=== PATIENT | male | born 1945 | race Caucasian/White ===

== ENCOUNTER → 2016-10-08 | Outpatient (CLI) | payer MEDICARE, OTHER ==
[~2016-10-08] VITALS: Ht 167.6 cm; Wt 81.2 kg
[~2016-10-08] MED LIST: ADV100INH INH; ALBU83IN INH; AMIT25TA PO; AMLO25TA PO; ASCO25TA PO; ATEN100T PO; BUSP15TA47 PO; CITA20TA4 PO; COMBAER6 INH; ECOT81TA5 PO; FENO1POW PO; FERR325T3 PO; FOLI5INJ2 PO; HYDR1LIQ PO; LASI20TA PO; LIDOCAINE 2% INJ 100 MG/5 ML SDV (FOR ANES.) As Ordered ONE; LISI10TA4 PO; METF500T PO; MULT1TAB18 PO; NS 1,000 ML IV SCH; OMEP40CA2 PO; PRED5CON PO; PROP50TA3 PO; PROPOFOL 200 MG/20 ML VIAL As Ordered ONE; ROPI2TAB PO; SIMV40TA2 PO; TIMO5OPD OU; TRAM50TA2 PO; TYLE500T78 PO; XALA0.002 OU; [UNRECOGNIZED DRUG - CODE] PO
--- NOTE | 2016-10-08 08:31 | ROOR ---
Patient Name: Juan Higgins Procedure Date: 10/08/2016 8:05 AM Date of : 1945 Age: 71 Room: [facility] Gender: Male Note Status: Finalized Procedure: Colonoscopy to Cecum Indications: Screening for colorectal malignant neoplasm Providers: Truong Robb MD Referring MD: TONYA SNOW MD Requesting Provider: Medicines: Monitored Anesthesia Care Complications: No immediate complications. Procedure: Pre-Anesthesia Assessment: - The heart rate, respiratory rate, oxygen saturations, blood pressure, adequacy of pulmonary ventilation, and response to care were monitored throughout the procedure. The Colonoscope was introduced through the anus and advanced to the cecum, identified by appendiceal orifice and ileocecal valve. The colonoscopy was performed without difficulty. The patient tolerated the procedure well. The quality of the bowel preparation was excellent. Findings: The perianal and digital rectal examinations were normal. Non-bleeding internal hemorrhoids were found during retroflexion. The hemorrhoids were small and Grade I (internal hemorrhoids that do not prolapse). Scattered small-mouthed diverticula were found in the recto-sigmoid colon, sigmoid colon and descending colon. The exam was otherwise without abnormality on direct and retroflexion views. Impression: - Non-bleeding internal hemorrhoids. - Diverticulosis in the recto-sigmoid colon, in the sigmoid colon and in the descending colon. - The examination was otherwise normal on direct and retroflexion views. - No specimens collected. - The exam was otherwise normal to the cecum. Recommendation: - Patient has a contact number available for emergencies. The signs and symptoms of potential delayed complications were discussed with the patient. Return to normal activities tomorrow. Written discharge instructions were provided to the patient. - High fiber diet. - Discharge patient to home. - Continue present medications. - Repeat colonoscopy is not recommended for screening purposes. - Return to referring physician. - The findings and recommendations were discussed with the patient's family. Truong Robb MD Truong Robb MD 10/08/2016 8:30:43 AM This report has been signed electronically. Number of Addenda: 0 Note Initiated On: 10/08/2016 8:05 AM Estimated Blood Loss: Estimated blood loss: none.
[2016-10-08 09:00] VITALS: BP 154/65
== END | disposition home or self-care (01) ==
LOC: M OPP 07:13
PROVIDERS: ATTEND Internal Medicine Gastroenterology
DX: Z12.11 Encounter for screening for malignant neoplasm of colon (principal); K64.0 First degree hemorrhoids; K57.30 Diverticulosis of large intestine without perforation or abscess without bleeding; I10 Essential (primary) hypertension; E78.5 Hyperlipidemia, unspecified; E11.9 Type 2 diabetes mellitus without complications; E05.90 Thyrotoxicosis, unspecified without thyrotoxic crisis or storm; R12 Heartburn; D64.9 Anemia, unspecified; R23.3 Spontaneous ecchymoses; M19.90 Unspecified osteoarthritis, unspecified site; M54.2 Cervicalgia; F41.9 Anxiety disorder, unspecified; F32.9 Major depressive disorder, single episode, unspecified; J45.909 Unspecified asthma, uncomplicated; J44.9 Chronic obstructive pulmonary disease, unspecified; R06.02 Shortness of breath; Z87.891 Personal history of nicotine dependence; Z88.1 Allergy status to other antibiotic agents; Z79.82 Long term (current) use of aspirin; Z79.84 Long term (current) use of oral hypoglycemic drugs; Z79.52 Long term (current) use of systemic steroids; Z79.51 Long term (current) use of inhaled steroids; Z79.899 Other long term (current) drug therapy
CPT/HCPCS: 99156; G0121

== ENCOUNTER 2017-03-23 22:59 | Emergency (ER) | payer MEDICARE, OTHER ==
[~2017-03-23] VITALS: Ht 170.2 cm; Wt 80.0 kg
[~2017-03-23 22:59] MED LIST changes: -LIDOCAINE 2% INJ 100 MG/5 ML SDV (FOR ANES.) As Ordered ONE; -METF500T PO; +METF500T13 PO; -NS 1,000 ML IV SCH; -PROPOFOL 200 MG/20 ML VIAL As Ordered ONE; +TIMO0.5S29 OU; -TIMO5OPD OU; -XALA0.002 OU; +XALA0.007 OU
[2017-03-23 23:17] VITALS: BP 131/71
[2017-03-24] MEDS ORDERED: PERCOCET 5MG/325MG TAB PO ONE (00:15)
--- NOTE | 2017-03-24 01:10 | REPUSA ---
CLINICAL HISTORY: Trauma. TECHNIQUE: Multiple axial CT images were obtained through the thorax without IV contrast material. COMMENTS: Moderate compression fracture of T12. Severe compression fracture of L1. Mild associated retropulsion. Increased kyphosis at thoracolumbar junction. Mild chronic compression fracture of T10 vertebral body. Chronic calcified right hilar and mediastinal lymph nodes. Moderate centrilobular emphysema. Basilar atelectatic pulmonary changes. There is no evidence of pleural or parenchymal-based mass. There are no pleural effusions. There is n o evidence of hilar or mediastinal lymphadenopathy. The heart and great vessels are within normal lee its. The visualized portions of the liver are of uniform attenuation without mass or defect. There is no i ntra or extrahepatic biliary ductal dilatation. The spleen is unremarkable. The visualized pancreas i s of normal contour and attenuation characteristics. There is no evidence of adrenal mass. The visual ized portions of the kidneys present no abnormalities. The bony structures are free of lytic or blastic lesions. IMPRESSION: Moderate compression fracture of T12. Please evaluate to exclude superimposed acute/subacute componen t. Severe compression fracture of L1. Mild associated retropulsion. Please evaluate to exclude superimpo sed acute/subacute component. Increased kyphosis at thoracolumbar junction. Mild chronic compression fracture of T10 vertebral body. Emphysema. Thank you for your kind referral of this patient.
[2017-03-24] MEDS ORDERED: OXYCODONE/APAP 5MG/325MG(BULK FOR ED) 1 TABLET PO ONE (03:00)
--- NOTE | 2017-03-24 08:26 | REP ---
Pelvis, right hip: Three views. History: Trauma. Findings: AP view of the pelvis shows an intact bony pelvic ring. Some vascular calcification and diffuse osteopenia are noted. No sacral or pelvic fracture is seen. No hip fracture is noted. There is mild osteoarthritis of the right hip on AP and frog-leg views. Impression: No fracture noted. Signed by Rodolfo Chester MD 03/24/2017 08:57 A
== END 2017-03-24 03:28 | disposition home or self-care (01) ==
LOC: M ED 22:59 → EDBD 22:59 → M ED 03-24 03:28
DX: S20.211A Contusion of right front wall of thorax, initial encounter (principal); S22.41XA Multiple fractures of ribs, right side, initial encounter for closed fracture; S22.088A Other fracture of T11-T12 vertebra, initial encounter for closed fracture; S32.018A Other fracture of first lumbar vertebra, initial encounter for closed fracture; S22.078A Other fracture of T9-T10 vertebra, initial encounter for closed fracture; W19.XXXA Unspecified fall, initial encounter; Y92.099 Unspecified place in other non-institutional residence as the place of occurrence of the external cause; Y93.9 Activity, unspecified; Y99.9 Unspecified external cause status; M40.205 Unspecified kyphosis, thoracolumbar region; J43.9 Emphysema, unspecified; Z79.82 Long term (current) use of aspirin; Z79.84 Long term (current) use of oral hypoglycemic drugs; Z88.1 Allergy status to other antibiotic agents; Z88.6 Allergy status to analgesic agent; Z88.8 Allergy status to other drugs, medicaments and biological substances

== ENCOUNTER 2017-03-26 19:47 | Inpatient (IN) | payer MEDICARE, OTHER ==
[~2017-03-26] VITALS: Ht 167.6 cm; Wt 88.5 kg
[2017-03-26] MEDS ORDERED: ONDANSETRON 4MG/2ML VIAL (J2405) As Ordered ONE (20:01)
[2017-03-26] MEDS ORDERED: SODIUM CHLORIDE 0.9% 1000 ML IV ONE ×2 (20:15→21:00)
[2017-03-26] MEDS ORDERED: ONDANSETRON 4MG/2ML VIAL (J2405) IV ONE (20:15)
[2017-03-26] MEDS ORDERED: AMLO25TA PO (20:16)
[2017-03-26 20:24] LABS: INR 1.22
[2017-03-26] MEDS: NS 1,000 ML IV SCH (20:30)
[2017-03-26 20:32] LABS: ADD MANUAL DIFFER YES; MEAN CORPUSCULAR HEMOGLOBIN 31.6 pg (27.0-33.0); MEAN CORPUSCULAR HGB CONC 33.6 g/dl (32.0-36.5); MEAN CORPUSCULAR VOLUME 94.2 fl (80.0-96.0); PLATELET COUNT, AUTOMATED 199 k/mm3 (150-450); RED CELL DISTRIBUTION WIDTH 12.9 % (11.5-14.5)
[2017-03-26 20:35] LABS: BANDS 1 % (< 11)
[2017-03-26 20:36] LABS: ALBUMIN 2.8 GM/DL (3.2-5.2); ALBUMIN/GLOBULIN RATIO 0.88 (1.00-1.93); ALKALINE PHOSPHATASE 99 U/L (45-117); ALT/SGPT 10 U/L (12-78); ANION GAP 18 MEQ/L (8-16); AST/SGOT 16 U/L (15-37); BILIRUBIN,DIRECT 0.5 MG/DL (0.0-0.2); BILIRUBIN,TOTAL 1.5 MG/DL (0.2-1.0); BLOOD UREA NITROGEN 16 MG/DL (7-18); CALCIUM LEVEL 7.7 MG/DL (8.8-10.2); CARBON DIOXIDE LEVEL 20 MEQ/L (21-32); CHLORIDE LEVEL 91 MEQ/L (98-107); CREATININE FOR GFR 1.19 MG/DL (0.70-1.30); FREE T4 1.45 NG/DL (0.76-1.46); GIANT PLATELETS 1+; GLOMERULAR FILTRATION RATE > 60.0 (>42); GLUCOSE, FASTING 249 MG/DL (83-110); MAGNESIUM LEVEL 1.4 MG/DL (1.8-2.4); POTASSIUM SERUM 4.5 MEQ/L (3.5-5.1); SODIUM LEVEL 129 MEQ/L (136-145)
[2017-03-26 20:37] LABS: PLATELET CLUMPS SMALL AMT
--- NOTE | 2017-03-26 20:40 | REPUSA ---
CT of the head Clinical history: syncope. Protocol: Multiple axial CT images obtained with 5 mm slice thickness were obtained through the head without administration of contrast. Findings: The ventricles and sulci are symmetric bilaterally. There are periventricular areas of low attenuation throughout the deep white matter. There is no evidence of acute hemorrhage or infarct. Th ere is no midline shift, mass effect, or extra-axial fluid collection. The osseous structures are unr emarkable. The mastoid air cells are clear. There is moderate amount of fluid and air fluid levels in the ethmoid and sphenoid sinuses. Impression: 1. No acute hemorrhage or infarct. Findings are consistent with mild chronic small vessel ischemic di sease. 2. Ethmoid and sphenoid sinusitis.
[2017-03-26] MEDS ORDERED: ISOVUE-370 76% 100ML VIAL (Q9967) As Ordered ONE (20:57)
[2017-03-26] MEDS ORDERED: AMITRIPTYLINE 25 MG TAB PO SCH (21:00)
[2017-03-26] MEDS ORDERED: rOPINIRole 1MG TAB PO SCH (21:00)
[2017-03-26] MEDS ORDERED: CALCIUM GLUCONATE 1,000 MG in D5W MINI-BAG PLUS 100 ML IV ONE (21:00)
[2017-03-26] MEDS ORDERED: SIMVASTATIN 20 MG TAB PO SCH (21:00)
[2017-03-26] MEDS ORDERED: MAG SULF 1GM/100ML (MAG RUN) 1 GM in APPROPRIATE DILUENT 1 EA IV ONE (21:00)
[2017-03-26] MEDS ORDERED: PROPYLTHIOURACIL 50 MG TAB PO SCH (21:00)
[2017-03-26 21:09] LABS: ABG BASE EXCESS -7.5 (-2.0-2.0); ABG HCO3 15.6 MEQ/L (22.0-26.0); ABG PARTIAL PRESSURE CO2 26.3 mmHg (35.0-45.0); ABG PARTIAL PRESSURE O2 191.2 mmHg (75.0-100.0); ABG STANDARD HCO3 18.5 MEQ/L (22.0-26.0); ABG TOTAL CO2 16.4 MEQ/L (23.0-31.0); ABG pH (ARTERIAL) 7.392 UNITS (7.350-7.450)
--- NOTE | 2017-03-26 21:50 | REPUSA ---
CT of the abdomen and pelvis with contrast Clinical statement: nausea, vomiting. Technique: Multiple axial CT images were obtained from the base of the lungs through the floor of the pelvis utilizing 5 mm axial slices after administration of nonionic intravenous contrast. Coronal an d sagittal reconstructions were also obtained. Comparison: 02/09/2008. Findings: Chest: The visualized lung bases demonstrates small bilateral pleural effusions and lower lobe atelec tasis. Moderate emphysema is also seen. Abdomen: The liver, spleen, pancreas, kidneys, and adrenal glands are unremarkable. There is a simple left renal cyst in the inferior medial aspect of the left kidney. The aorta is within normal limits. There is no evidence of abdominal lymphadenopathy or ascites. Pelvis: Moderate amount of stool fills the colon.diffuse fluid distention of the colon is appreciated . There is no focal site of obstruction. No inflammatory bowel changes are seen. The urinary bladder is within normal limits. The other pelvic structures appear grossly intact. There is no evidence of p elvic lymphadenopathy or ascites. Bones: There are no suspicious osseous abnormalities seen. Severe multilevel degenerative disc diseas e is noted. Chronic compression fractures are noted at L1, L2, L4, and L5. This is most severe at L1 and L2. Impression: 1. Moderate constipation. Diffuse fluid distention of the colon, consistent with colonic ileus. There is no focal evidence of bowel obstruction. 2. Small bilateral pleural effusions and lower lobe atelectasis. Moderate emphysema. 3. Simple left renal cyst. 4. Severe spondylosis of the spine. Multilevel compression fractures as described, most severe L1 and L2. No acute fractures are identified however.
[2017-03-26] MEDS ORDERED: ATEN50TA2 PO (23:00)
[2017-03-26] MEDS ORDERED: AMLO5TAB2 PO (23:00)
[2017-03-26] MEDS ORDERED: REQU4TAB3 PO (23:00)
[2017-03-26] MEDS ORDERED: SIMV20TA2 PO (23:00)
[2017-03-26] MEDS ORDERED: PRED10TA2 PO (23:00)
[2017-03-26] MEDS ORDERED: METF500T4 PO (23:00)
[2017-03-26] MEDS ORDERED: FOLI1TAB4 PO (23:00)
[2017-03-26] MEDS ORDERED: ADVA115A INH (23:01)
[2017-03-26] MEDS ORDERED: FOSA70TA PO (23:01)
[2017-03-26] MEDS ORDERED: B121000T PO (23:01)
[2017-03-26 23:35] LABS: METHADONE URINE NEGATIVE (NEGATIVE)
[2017-03-27] VITALS (49 sets, daily range): BP systolic 71–134; BP diastolic 39–79; O2SAT 100
[2017-03-27] MEDS ORDERED: DEXTROSE 50% 50 ML SYRINGE IV PRN (00:45)
[2017-03-27] MEDS ORDERED: GLUCAGON FOR INJ 1 MG VIAL (J1610) SC PRN (00:45)
[2017-03-27] MEDS ORDERED: ALBUTEROL SULFATE 2.5 MG/0.5 ML INH NEB SOLN INH PRN (00:45)
[2017-03-27] MEDS ORDERED: GLUCOSE 4 GM CHEW TABLET PO PRN (00:45)
[2017-03-27] MEDS: ONDANSETRON 4MG/2ML VIAL (J2405) IV PRN ×2 (00:55→06:19)
[2017-03-27] MEDS ORDERED: MAG SULF 1GM/100ML (MAG RUN) 1 GM in APPROPRIATE DILUENT 1 EA IV ONE (01:00)
[2017-03-27] MEDS ORDERED: ONDANSETRON 4MG/2ML VIAL (J2405) IV ONE (01:15)
[2017-03-27] MEDS ORDERED: LIDOCAINE 5% (LIDODERM) PATCH TD ONE (01:30)
--- NOTE | 2017-03-27 02:05 | HPEPDOC ---
General Date of Admission Mar 26, 2017 at 23:44 Attending Physician: GEENA OH MD Chief Complaint The patient is a 72-year-old male admitted with a reason for visit of Syncopal Episode. Source: Patient, RN notes reviewed, Old records Exam Limitations: No limitations History of Present Illness Mr. Higgins is a 72-year-old male who presents to [facility]'s emergency Department with syncope. Past medical history significant for hypertension, diabetes, hypothyroidism, dyslipidemia, gastroesophageal reflux disease, chronic obstructive pulmonary disease, osteoporosis, depression, coronary artery disease, history of anemia, history of pneumonia, adenomatous polyp, prior pleural effusion, duodenal ulcer , hemorrhoids, diverticulosis, history of gastritis, chronic cholecystitis, cholelithiasis. Patient reports that he presented to the emergency department a couple days ago with a mechanical fall without loss of consciousness. He was using his cane at the time. He states that he tripped and hit his head on the vacuum book cleaner. He states that he was given pain medication and was discharged. States that the pain medication helped, but he was only given a limited supply. Patient reports that he got up today to use the toilet and noted that he was quite dizzy when he went to stand. He was using his walker at the time. His called [employer] and a gentleman came over who lived just down the road. He attempted to help the patient rise. Patient reports again feeling dizzy and falling with positive loss of consciousness. Patient reports to me that EMS stated to the patient he had "no pulse and had ." Patient denies resuscitative efforts. Patient was ultimately brought to the emergency department. He admits to weight loss over the course of 2-3 months from 181 pounds to 176 pounds recorded at his primary care providers office visit last Tuesday. Admits to decreased appetite and "feeling dry." However, reports that he feels as though he is always drinking fluids. Patient also reports right lower quadrant and right flank pain as well as pain in his right groin secondary to his fall a couple days ago. Patient does walk with a walker and a cane secondary to a "broken back" that occurred approximately 2-3 years ago. Patient is able to perform ADLs, but does not ascend or descend stairs or is able to walk a city block. Emergency department obtained vital signs and labs as well as a head CT which was negative and CT of the abdomen and pelvis which showed constipation and colonic ileus. EKG showed normal sinus rhythm. Hospitalist service was consulted and patient was admitted for further medical management. Home Medications Scheduled Albuterol/Ipratropium (Combivent Respimat 20-100 Mcg/Act) 1 Aer Aer, 1 PUFF INH QID, (Reported) Alendronate Sodium (Fosamax) 70 Mg Tab, 70 MG PO QWEEK, (Reported) SUNDAYS Amitriptyline HCl (Amitriptyline HCl) 25 Mg Tab, 25 MG PO QHS, (Reported) Amlodipine Besylate (Amlodipine Besylate) 5 Mg Tab, 5 MG PO DAILY, (Reported) Aspirin (Ecotrin Low Strength) 81 Mg Tab, 81 MG PO DAILY, (Reported) Atenolol (Atenolol) 50 Mg Tab, 50 MG PO DAILY, (Reported) Buspirone HCl (Buspirone HCl) 15 Mg Tab, 15 MG PO BID, (Reported) Citalopram Hydrobromide (Citalopram Hydrobromide) 20 Mg Tab, 20 MG PO DAILY, ( Reported) Cyanocobalamin (B12) 1,000 Mcg Tab, 1,000 MCG PO DAILY, (Reported) Ferrous Sulfate (Ferrous Sulfate) 325 Mg Tab, 325 MG PO TID, (Reported) Folic Acid (Folic Acid) 1 Mg Tab, 1 MG PO DAILY, (Reported) Furosemide (Lasix) 20 Mg Tab, 20 MG PO DAILY, (Reported) Lisinopril (Lisinopril) 10 Mg Tab, 10 MG PO DAILY, (Reported) Metformin Hydrochloride (Metformin HCl ER) 500 Mg Tab, 500 MG PO QID, (Reported) Omeprazole (Omeprazole) 40 Mg Cap, 40 MG PO DAILY, (Reported) Prednisone (Prednisone) 10 Mg Tab, 10 MG PO DAILY, (Reported) Propylthiouracil (Propylthiouracil) 50 Mg Tab, 50 MG PO QAM, (Reported) Propylthiouracil (Propylthiouracil) 50 Mg Tab, 25 MG PO QHS, (Reported) Ropinirole Hydrochloride (Requip) 4 Mg Tab, 4 MG PO QHS, (Reported) Salmeterol/Fluticasone (Advair Hfa 115-21 Mcg/Act) 1 Aer Aer, 2 PUFF INH BID, ( Reported) Simvastatin (Simvastatin) 20 Mg Tab, 20 MG PO QHS, (Reported) Scheduled PRN Albuterol Sulfate (Albuterol Sulfate) 2.5 Mg/3 Ml Nebu, 2.5 MG INH PRN PRN for WHEEZING, (Reported) Tramadol HCl (Tramadol HCl) 50 Mg Tab, 50 MG PO Q6H PRN for PAIN, (Reported) Allergies Coded Allergies: Quinolones (Verified Allergy, Intermediate, HIVES, 10/01/16) Azithromycin (Verified Allergy, Mild, hives, 10/01/16) Levofloxacin (Verified Allergy, Mild, 10/01/16) Tobramycin (Verified Allergy, Unknown, 06/04/16) Ibuprofen (Verified Adverse Reaction, Intermediate, STOMACH UPSET, 10/01/16) Zolpidem (Verified Adverse Reaction, Mild, HALLUCINATIONS, 11/01/12) Past Medical History Medical History 1. Hypertension 2. Diabetes 3. Hypothyroidism 4. Dyslipidemia 5. Gastroesophageal reflux disease 6. Chronic obstructive pulmonary disease 7. Osteoporosis 8. Depression 9. Coronary artery disease 10. History of anemia 11. History of pneumonia 12. Adenomatous polyp 13. Prior pleural effusion secondary to pneumonia 14. Duodenal ulcer 15. Hemorrhoids 16. Diverticulosis 17. History of gastritis 18. Chronic cholecystitis 19. Cholelithiasis Surgical History 1. Cholecystectomy 2. Colonoscopy 3. EGD 4. Bilateral cataract removal 5. Right eye surgery secondary to injury 6. Appendectomy Family History Mother: Alive, 89, epilepsy, resides at [facility] Social History Lives independently with life partner Has 1 stepdaughter, 2 step grandchildren Admits to one dog in the home, Cliff Diaz Admits to one house cat, one outdoor cat Retired [employer] employee Denies current tobacco use, former tobacco user, quit 15 years ago, smoked for approximately 25 years, 1 pack per day Denies alcohol use Denies illicit drug use Denies travel Review of Symptoms Constitutional: Denies: Chills, Fever, Night Sweats, Weakness, Weight Loss Eyes: Denies: Pain, Vision change, Conjunctivae inflammation, Eyelid inflammation ENT: Denies: Head Aches, Ear Pain, Dysphagia, Sinus Congestion, Post Nasal Drip , Sore Throat, Epistaxis Skin: Denies: Rash, Lesions, Jaundice Pulmonary: Denies: Dyspnea, Cough, Pleuritic Chest Pain Cardiovascular: Denies: Chest Pain, Palpitations, Orthopnea, Paroxysmal Noc. Dyspnea, Edema, Lt Headedness Gastrointestinal: Reports: Abdominal Pain, Denies: Nausea, Vomiting, Diarrhea, Constipation, Melena, Hematochezia Genitourinary: Denies: Dysuria, Frequency, Incontinence, Hematuria, Retention Hematologic: Denies: Bruising, Bleeding Excessively Musculoskeletal: Reports: Back Pain, Denies: Neck Pain, Joint Pain Neurological: Denies: Weakness, Numbness Other systems Admits to decreased appetite, falls, decreased urinary output, 1 episode of dry heaving Physical Examination General Exam: Positive: Alert, Cooperative Eye Exam: Positive: PERRLA ENT Exam: Positive: Atraumatic, Tongue Midline, Nares Patent, Negative: Mucous membr. moist/pink Neck Exam: Positive: Supple, +2 carotid pulse wo bruit, Negative: JVD, thyromegaly, Lymphadenopathy Chest Exam: Positive: Clear to auscultation, Normal air movement, Wheezing ( inspiratory and expiratory, greater on the right than the left) Heart Exam: Positive: Rate Normal, Normal S1, Normal S2, Negative: Murmurs, Rubs Telemetry: Positive: No significant arrhythmia Abdomen Exam: Positive: Normal bowel sounds, Soft, Tenderness (right lower quadrant), Other (abdomen is quite distended), Negative: Hepatospenomegaly, Mass, Hernia Extremity Exam: Positive: Normal pulses, Negative: Clubbing, Cyanosis, Edema, Tenderness, Swelling Skin Exam: Negative: Rash, Lesion Neuro Exam: Positive: Normal Speech, Strength at 5/5 X4 ext, Cranial Nerves 3- [address] Other physical findings CT of the head without contrast IMPRESSION: 1. No acute hemorrhage or infarct. Findings are consistent with mild chronic small vessel ischemic disease. 2. Ethmoid and sphenoid sinusitis. CT of the abdomen and pelvis with IV contrast only IMPRESSION: 1. Moderate constipation. Diffuse fluid distention of the colon, consistent with colonic ileus. There is no focal evidence of bowel obstruction. 2. Small bilateral pleural effusions and lower lobe atelectasis. Moderate emphysema. 3. Simple left renal cyst. 4. Severe spondylosis of the spine. Multilevel compression fractures as described, most severe L1 and L2. No acute fractures are identified however. Chest x-ray IMPRESSION: Pending Vital Signs Vital Signs Date Time Temp Pulse Resp B/P (MAP) Pulse Ox O2 Delivery O2 Flow Rate FiO2 8/26/17 23:47 89 105/55 (72) 95 03/26/17 23:17 99.1 16 03/26/17 19:54 Room Air Height (in): 66 Weight (kg): 81 BMI (kg): 28.8 Laboratory Data Labs 24H Laboratory Tests 2 03/26/17 19:56: Neutrophils 89H, Band Neutrophils 1, Lymphocytes (Manual) 8L, Monocytes (Manual ) 2, Platelet Estimate NORMAL, Clumped Platelets SMALL AMT, Giant Platelets 1+, Prothrombin Time 15.6H, Prothromb Time International Ratio 1.22, Activated Partial Thromboplast Time 28.1, Anion Gap 18H, Glomerular Filtration Rate > 60.0 , Calcium Level 7.7L, Magnesium Level 1.4L, Aspartate Amino Transf (AST/SGOT) 16 , Alanine Aminotransferase (ALT/SGPT) 10L, Alkaline Phosphatase 99, Total Bilirubin 1.5H, Direct Bilirubin 0.5H, Total Creatine Kinase 72, Creatine Kinase MB 1.2, Creatine Kinase MB Relative Index 1.66, Troponin I < 0.02, Total Protein 6.0L, Albumin 2.8L, Albumin/Globulin Ratio 0.88L, Thyroid Stimulating Hormone (TSH) 3.260, Free Thyroxine 1.45, B-Hydroxybutyrate 1.95 03/26/17 20:37: Bedside Glucose (Misc Panel) 221H 03/26/17 21:02: Blood Gas Bicarbonate Standard 18.5L, Arterial Blood pH 7.392, Arterial Blood Partial Pressure CO2 26.3L, Arterial Blood Partial Pressure O2 191.2H, Arterial Blood Total CO2 16.4L, Arterial Blood HCO3 15.6L, Arterial Blood Base Excess - 7.5L, Arterial Blood Oxygen Saturation 99.2H 03/26/17 21:18: Lactic Acid Level 4.6*H 03/26/17 23:01: Urine Appearance CLOUDYH, Urine Color YELLOW, Urine pH 7.0, Urine Specific [place] 1.022, Urine Protein 3+H, Urine Glucose (UA) 1+H, Urine Ketones NEGATIVE , Urine Urobilinogen 0.2, Urine Bilirubin NEGATIVE, Urine Leukocyte Esterase NEGATIVE, Urine Blood NEGATIVE, Urine Nitrite NEGATIVE, Urine WBC (Auto) 3, Urine RBC (Auto) 2, Urine Hyaline Casts (Auto) 1, Urine Bacteria (Auto) NEGATIVE , Urine Squamous Epithelial Cells 0, Urine Sperm (Auto) , Urine Random Osmolality 291L, Urine Random Creatinine 25.3, Urine Random Total Protein 269.8H , Urine Random Sodium 34, Urine Random Potassium 49.9, Urine Random Chloride 74 , Urine Amphetamines Screen NEGATIVE, Urine Benzodiazepines Screen NEGATIVE, Urine Opiates Screen NEGATIVE, Urine Methadone Screen NEGATIVE, Urine Barbiturates Screen NEGATIVE, Urine Phencyclidine Screen NEGATIVE, Urine Cocaine Metabolite Screen NEGATIVE, Urine Cannabinoids Screen NEGATIVE CBC/BMP Laboratory Tests 03/26/17 19:56 Red Blood Count 4.63, Mean Corpuscular Volume 94.2, Mean Corpuscular Hemoglobin 31.6, Mean Corpuscular Hemoglobin Concent 33.6, Red Cell Distribution Width 12.9 Microbiology Microbiology 03/26/17 Urine Culture, Received Pending Assessment/Plan This is 72-year-old male with a past medical history significant for hypertension, diabetes, hypothyroidism, dyslipidemia, gastroesophageal reflux disease, chronic obstructive pulmonary disease, osteoporosis, depression, coronary artery disease, history of anemia, history of pneumonia, adenomatous polyp, prior pleural effusion, duodenal ulcer, hemorrhoids, diverticulosis, history of gastritis, chronic cholecystitis, cholelithiasis who presents with syncope secondary to dehydration and hypotension. Plan / VTE VTE Prophylaxis Ordered?: Yes (TEDs, sequential, knee-high compression, heparin 5000 units subcutaneous tenderness every 8 hours) Plan / Urinary Catheter Reason for insertion/continuin: Critical Pt monitoring Plan Plan Hypotension Likely secondary to dehydration. Hold blood pressure medications at this time. Administering normal saline 100 mLs per hour. Monitor vital signs. Patient out of bed ad agnieszka. with assistance. Hypotonic hyponatremia Urine studies obtained. Corrected sodium is 131. Administer normal saline at 100 mLs per hour. Monitor vital signs. Lactic acidosis Likely contributing to positive anion gap. Likely secondary to dehydration and decreased by mouth intake. Normal saline at 100 mLs per hour. Monitor with daily BMP. Abnormal electrolytes Hypocalcemia and hypomagnesemia. Hypocalcemia likely secondary to patient's continued diuretic use despite decreased by mouth intake. Holding loop diuretic at this time. Monitor with daily BMP, magnesium level, and calcium level. Repeated magnesium and calcium. Hyperglycemia Patient is diabetic. Lactic acid likely also secondary component. Hold metformin at this time. Initiate sliding scale insulin. Constipation Imaging indicates a colonic ileus and notes significant amount of stool. Initiate bowel regimen with docusate/senna and MiraLAX. Colonic ileus Conservative measures at this time. Replete electrolytes and rehydrate with intravenous fluid resuscitation. Could consider moving the patient from side to side to improve ileus, nasogastric tube insertion, rectal tube insertion, Gastrografin enema. Have held tramadol at this time as it could contribute to patient's colonic ileus. Tylenol as needed for pain. Hypothyroidism Continue patient's current home medication regimen. Chronic obstructive pulmonary disease Continue patient's current medication regimen. Could consider patient's chronic steroid use resulting in chronic adrenal insufficiency causing patient's clinical picture. Dyslipidemia Continue patient's current medication regimen. Gastro esophageal reflux disease Continue patient's current home medication regimen. DVT prophylaxis: TEDs, sequential, knee-high compression, heparin 5000 units subcutaneous every 8 hours. Disposition Admit: Progressive care unit Anticipated hospitalization: 2 nights Attending: Dr. Stafford Attending note: After revisiting the patient several horus after admission, he initially responded to IVF, however at this time his belly pain appears to have worsened and he has become more hypotensive. I will administer stress dose steroids in case of any adrenal insufficiency and I have been able to speak with Dr. Crews with concern for ischemic bowel given elevated lactic acid, and possibly atypical presentation secondary to chronic steroid use. IVF: Initiate (normal saline at 100 mils per hour) Diet: Continue Current (low carbohydrate diet) Activity: Continue Current (out of bed ad agnieszka. 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
[2017-03-27] MEDS ORDERED: SODIUM CHLORIDE 0.9% 1000 ML IV ONE ×2 (02:15→06:45)
[2017-03-27] MEDS ORDERED: SODIUM CHLORIDE 0.9% 1000 ML IV STA (02:15)
[2017-03-27] MEDS: busPIRone 5 MG TAB PO SCH ×2 (02:21→09:00)
[2017-03-27] MEDS: NS 1,000 ML IV SCH (05:37)
[2017-03-27 05:55] LABS: ADD MANUAL DIFFER YES; DIFF SLIDE NUMBER 82; MEAN CORPUSCULAR HEMOGLOBIN 31.3 pg (27.0-33.0); MEAN CORPUSCULAR HGB CONC 32.6 g/dl (32.0-36.5); PLATELET COUNT, AUTOMATED 180 k/mm3 (150-450); RED CELL DISTRIBUTION WIDTH 13.1 % (11.5-14.5); WHITE BLOOD COUNT 13.2 K/mm3 (4.0-10.0)
[2017-03-27] MEDS: HumaLOG INSULIN (NovoLOG) PER UNIT SC SCH ×4 (06:00→23:53)
[2017-03-27 06:07] LABS: CALCIUM LEVEL 6.9 MG/DL (8.8-10.2); CREATININE FOR GFR 1.75 MG/DL (0.70-1.30); GLOMERULAR FILTRATION RATE 41.1 (>42); MAGNESIUM LEVEL 2.1 MG/DL (1.8-2.4)
[2017-03-27] MEDS ORDERED: HYDROCORTISONE 100 MG/2 ML VIAL (J1720) IV ONE (06:15)
[2017-03-27] MEDS: HEPARIN SOD (PORCINE) 5000 UNITS/ML VIAL SC SCH ×3 (06:19→22:08)
[2017-03-27 06:57] LABS: BANDS 8 % (< 11)
[2017-03-27 06:59] LABS: CRENATED RBC 1+; GIANT PLATELETS 2+
[2017-03-27] MEDS ORDERED: HumaLOG INSULIN (NovoLOG) PER UNIT SC SCH ×2 (07:30→21:00)
[2017-03-27] MEDS ORDERED: NOREPINEPHRINE BITARTRATE 8 MG in D5W 500 ML IV SCH ×6 (08:00→20:00)
[2017-03-27] MEDS ORDERED: NOREPINEPHRINE 4 MG/4 ML AMP As Ordered ONE (08:08)
--- NOTE | 2017-03-27 08:15 | REP ---
PORTABLE CHEST, ONE VIEW: HISTORY: Syncope. COMPARISON: 06/27/2015. The lungs are clear. The heart is normal in size. The pulmonary vasculature is normal in appearance. IMPRESSION: No acute disease. Signed by Kelechi Starkey MD 03/27/2017 08:15 A
[2017-03-27] MEDS: PIPERACILLIN/TAZOBACTAM SOD 3.375 GM in D5W MINI-BAG PLUS 50 ML IV SCH ×3 (08:23→20:47)
--- NOTE | 2017-03-27 08:41 | ECGEPIP ---
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
[2017-03-27 08:56] LABS: ABG BASE EXCESS -13.8 (-2.0-2.0); ABG HCO3 12.4 MEQ/L (22.0-26.0); ABG PARTIAL PRESSURE CO2 30.5 mmHg (35.0-45.0); ABG STANDARD HCO3 13.8 MEQ/L (22.0-26.0); ABG TOTAL CO2 13.4 MEQ/L (23.0-31.0)
[2017-03-27] MEDS ORDERED: PROPYLTHIOURACIL 50 MG TAB PO SCH (09:00)
[2017-03-27] MEDS ORDERED: ADVAIR HFA 115/21MCG INHALER INH SCH (09:00)
[2017-03-27] MEDS ORDERED: FOLIC ACID 1 MG TAB PO SCH (09:00)
[2017-03-27] MEDS ORDERED: predniSONE 10 MG TAB PO SCH (09:00)
[2017-03-27] MEDS ORDERED: FERROUS SULFATE 325MG TAB PO SCH (09:00)
[2017-03-27] MEDS ORDERED: MIRALAX *UNIT DOSE* 17GM PACKET PO SCH (09:00)
[2017-03-27] MEDS ORDERED: CitaloPRAM (CeleXA) 20 MG TAB PO SCH (09:00)
[2017-03-27] MEDS ORDERED: OMEPRAZOLE 20 MG CAP PO SCH (09:00)
[2017-03-27] MEDS ORDERED: SENOKOT S TAB PO SCH (09:00)
[2017-03-27] MEDS ORDERED: ASPIRIN 81 MG ENTERIC TAB PO SCH (09:00)
[2017-03-27] MEDS ORDERED: VANCOMYCIN HCL 1,000 MG, VIAL MATE ADAPTER 1 EACH in D5W 250 ML IV SCH (09:00)
[2017-03-27 09:06] LABS: VENOUS BASE EXCESS -14.3 (-2.0-2.0); VENOUS O2 SATURATION 80.9 % (60.0-80.0); VENOUS PARTIAL PRESSURE O2 54.5 mmHg (30.0-50.0); VENOUS STANDARD HCO3 13.2 MEQ/L; VENOUS TOTAL CO2 14.8 MEQ/L (24.0-28.0)
--- NOTE | 2017-03-27 09:20 | REP ---
Chest one-view HISTORY: Central line placement. Comparison: 03/26/2017 The patient is status post central line placement. A central line is present in the region of the right atrium. A small left pneumothorax is present. Linear density is present in the left lower lobe consistent with atelectasis. The right lung is clear. The heart is normal in size. The pulmonary vasculature is normal in appearance. Impression: 1. The patient is status post central line placement in the region of the right atrium. 2. Small left pneumothorax. 3. Left lower lobe atelectasis. Signed by Kelechi Starkey MD 03/27/2017 09:12 A
[2017-03-27] MEDS: IPRATROPIUM 0.5MG/ALBUTEROL 2.5MG INH SOL UD 3ML (DUONEB)(J7620) INH SCH ×2 (09:38→16:26)
--- NOTE | 2017-03-27 10:01 | PHACANCOPD ---
PHARMACY VANCOMYCIN DOSING Pt Demographics Demographics Patient Age:72 , Weight:81 , Gender: male Adjusted Body Weight Date: 03/27/17, Adjusted Body Weight: [NA] Kg Events Past 24 Hours Events Past 24 Hours: YES: Change in CrCl, Fever (Tmax 99.1), Elevation in WBC , NO: Dialysis, Diuretic Therapy, Pending Diagnostics, Pending Procedures, Other Vancomycin Vancomycin indication: ?sepsis Vancomycin Target Ranges: 15-20 mcg/ml Vancomycin Load Y/N: No Load Dose Date Time Vancomycin Load Dose: Date: Time: Vancomycin Dose Date: 03/27/17. Current Vancomycin Dose: [1g IV q12h @09] Intermittent Dosing?: No Labs Labs Item Value Date Time Creatinine 1.75 MG/DL H 03/27/17 0537 White Blood Count 10.0 K/mm3 03/26/171955 White Blood Count 13.2 K/mm3 H 03/27/17 0537 Creatinine 1.19 MG/DL 03/26/171955 Band Neutrophils 1 % 03/26/171955 Band Neutrophils 8 % 03/27/17 0537 Micro Microbiology 03/27/17 Blood Culture, Received Pending 03/27/17 Blood Culture, Received Pending 03/26/17 Urine Culture, Received Pending Creatinine Clearance Date:03/27/17. Creatinine Clearance: [~34 ml/min]. Pending Labs Vanco trough scheduled 03/29 @08:00 before the 5th dose Assessment and Plan Maintaining Current Dose?: Yes Reason for dose change: No Dose Change Pharmacist Note Pharmacist Note Date: 03/27/17. Pharmacist note: pt was admitted last night for possible sepsis, he has been started on Zosyn and Vancomycin this morning. He received multiple saline boluses overnight but his SCr is elevated today (baseline ~1.1 mg/dl) and is currently on vasopressors. He has not been on vancomycin at our facility in the past and he does not have an apparent Hx of MRSA. I have continued him on Vancomycin 1g IV q12h with a trough before the 5th dose. We will continue to monitor and ff SCr worsens we will obtain a level tomorrow. Ludin Yadav Pharm.D. Mar 27, 2017 10:01
--- NOTE | 2017-03-27 10:24 | REP ---
Chest one-view HISTORY: Pneumothorax Comparison: 909:00 a.m. 03/27/2017 A small area of atelectasis is present in the left lower lobe. The right lung is clear. A small left pneumothorax is present and is slightly decreased in size compared to the previous study. The heart is normal in size. The pulmonary vasculature is normal in appearance. A central line is present in the region of the right atrium. Impression: 1. Left lower lobe atelectasis. 2. Left pneumothorax slightly decreased in size compared to the previous study. Signed by Kelechi Starkey MD 03/27/2017 10:16 A
[2017-03-27] MEDS ORDERED: MIDAZOLAM INJ 2 MG/2 ML VIAL (J2250) As Ordered ONE ×3 (11:05→13:28)
[2017-03-27] MEDS ORDERED: LIDOCAINE 1% MDV 20ML VIAL As Ordered ONE (11:05)
[2017-03-27] MEDS ORDERED: FLUMAZENIL 0.5 MG/5 ML VIAL As Ordered ONE (11:06)
[2017-03-27] MEDS ORDERED: LIDOCAINE 1% MDV 20ML VIAL SC ONE (11:30)
[2017-03-27] MEDS ORDERED: MIDAZOLAM INJ 2 MG/2 ML VIAL (J2250) IV ONE (11:30)
--- NOTE | 2017-03-27 11:30 | IPNPDOC ---
Text Note Date of Service The patient was seen on 03/27/17. NOTE Subjective: Patient states that he had a mechanical fall 3 days ago, for which he came into the ED and was found to have compression fractures on CT. At the time patient's blood pressure with systolic blood pressure in the 130s. He has been on the same dose of Lasix over the past 4-5 years. No change in his by mouth intake. Patient had gone to the bathroom,and after he got off the toilet had a syncopal episode. Presented to the ED fairly hypotensive with progression of his hypotension despite 4 L normal saline, with worsening lactic acidosis. Started on broad-spectrum antibiotics, blood cultures sent. Patient did become tachypneic and hypoxic with the IV fluids, which were then stopped and Levothroid was started as patient progressed to shock. Dr. Rosales has been called, and has graciously placed a central line. Objective: Vitals: (see below) General: No acute distress, laying comfortably in bed. HEENT: Moist mucous membranes. Neck: No JVD or lymphadenopathy Cardiac: RRR, No murmurs Pulm: Coarse crackles at the bases bilaterally. Mild expiratory wheezing bilaterally. No rhonchi. No use of accessory muscles. No stridor. Abd: Diffuse TTP with guarding. No rigidity/rebound. Mildly distended. Hypoactive BS. Ext: Trace edema bilateral lower extremities. No cyanosis Alert and oriented 3. Labs (see below) Images: CT abd/pelvis 03/26/17 IMPRESSION: 1. Moderate constipation. Diffuse fluid distention of the colon, consistent with colonic ileus. There is no focal evidence of bowel obstruction. 2. Small bilateral pleural effusions and lower lobe atelectasis. Moderate emphysema. 3. Simple left renal cyst. 4. Severe spondylosis of the spine. Multilevel compression fractures as described, most severe L1 and L2. No acute fractures are identified however. Assessment/Plan 1. Septic shock secondary to ischemic bowel- progressive hypotension and persistent lactic acidosis with tenderness on exam. Started on broad-spectrum IV antibiotics. Blood culture sent. Discussed with Dr. Crews who will be taking to the patient to the OR emergently. Patient had been started on stress dose steroids in the case that the patient may have a component of adrenal insufficiency from his chronic prednisone for his COPD, we'll de-escalate and discontinue pending clinical picture. 2. Lactic acidosis- secondary to #1, persistent. Patient's with significant anion gap metabolic acidosis. 3. Acute hypoxic respiratory failure- secondary to septic shock/ischemic bowel. Requiring 4 liters of oxygen at this point. Patient is a high risk for remaining on the mechanical ventilator after surgery, and he states that he would like to be full code. IV fluids discontinued at this point, the patient remains on pressors. 4. Acute renal failure- secondary to the above. Continue pressor therapy. We will consult nephrology if no improvement after OR. 5. Hyponatremia- resolved with IV fluids. 6. Electrolyte abnormalities- improved. Replaced. Continue to monitor. 7. Severe COPD - on chronic steroids. Nebs. High risk for remaining intubated after 4. 8. Small pneumothorax status post TLC- we will continue to monitor and observe unless the pneumothorax enlarges. 9. Hypothyroidism- continue home meds 10. Diabetes mellitus- continue insulin 11. Hyperlipidemia- continue statin 12. GERD- continue home meds 13 Colonic ileus on CAT scan- surgery on board Prognosis guarded Patient states he spoke to his family and does not want me to call anybody asked. Full code. DVT prophy: Heparin SQ After the OR, patient was transferred to Dr. Causey's service as he was vented, and on pressors. VS,Jessiee, I+O VS, [place], I+O Laboratory Tests 03/26/17 19:56 Red Blood Count 4.63, Mean Corpuscular Volume 94.2, Mean Corpuscular Hemoglobin 31.6, Mean Corpuscular Hemoglobin Concent 33.6, Red Cell Distribution Width 12.9 03/27/17 05:37 Red Blood Count 3.84 L, Mean Corpuscular Volume 96.0, Mean Corpuscular Hemoglobin 31.3, Mean Corpuscular Hemoglobin Concent 32.6, Red Cell Distribution Width 13.1, Calcium Level 6.9 L Vital Signs Date Time Temp Pulse Resp B/P (MAP) Pulse Ox O2 Delivery O2 Flow Rate FiO2 03/27/17 10:23 93 32 98/55 (69) 96 Nasal Cannula 4.0 03/27/17 08:52 97.9 I&O- Last 24 Hours up to 6 AM 03/27/17 06:00 Intake Total 4360 ml Output Total 50 ml Balance 4310 ml MARYJO CRUZ MD Mar 27, 2017 11:30
--- NOTE | 2017-03-27 11:45 | CR ---
DATE OF CONSULTATION: 03/27/2017 REASON FOR CONSULTATION: abdominal pain, possible ischemic bowel. HISTORY OF THE PRESENT ILLNESS: The patient is a pleasant, 72-year-old man who presented to the emergency department at approximately 1947 hours on 03/26/2017. The patient had suffered a syncopal episode at home. He had apparently passed out and fallen and was helped up by a neighbor. Apparently, EMS was contacted and once they arrived he apparently became unresponsive again. The patient reports that he was told he was pulseless but the patient came to without any resuscitative efforts. In the emergency department, his blood pressure at presentation was 80/40 and remained fairly low during his evaluation. He did receive several boluses of fluid. He was admitted by the hospitalist service for management. I was contacted on the morning of 03/27/2017 that the patient had remained somewhat hypotensive since admission and despite 3-4 liters of resuscitation. He also developed abdominal pain, which has worsened overnight. His lactic acid has risen and his creatinine has gone from 1.2 on presentation to 1.75 with a diminished urine output. The possibility of ischemic bowel was raised and I have been asked to evaluate the patient. ALLERGIES: The patient has allergies listed to AZITHROMYCIN, IBUPROFEN, LEVOFLOXACIN, QUINOLONES, TOBRAMYCIN OPHTHALMIC, and ZOLPIDEM. MEDICATIONS IN THE HOSPITAL: - He is currently on a Levophed drip to support his blood pressure. - He has orders for DuoNeb treatments. - aspirin - Celexa - ferrous sulfate - folic acid - omeprazole - prednisone - propylthiouracil - Advair - Senokot-S - MiraLAX - vancomycin - He is also receiving Zosyn and subcu heparin. - There are orders for a sliding scale of insulin based on fingersticks. - He also has orders for ropinirole, Zocor, Zofran on an as-needed basis Tylenol , hydrocortisone. MEDICAL HISTORY: Is significant for diabetes mellitus. He has a history of hypertension. He has dyslipidemia. He has hyperthyroidism being managed medically. He has a history of gastroesophageal reflux disease. He has a past history of colonic polyps. He does have chronic obstructive pulmonary disease and is followed by, I believe it is Dr. Barros of the pulmonary group. He has a history of coronary artery disease. He has osteoporosis and a reported history of depression. SURGICAL HISTORY: The patient has had an open appendectomy. He had a laparoscopic cholecystectomy in 2007. He has had cataract surgery as well, as well as upper and lower endoscopies. FAMILY HISTORY: The patient's mother is alive at 89 and living at the [facility] SOCIAL HISTORY: The patient has a life partner with whom he has lived for 16-17 years. He has one stepdaughter and two step-grandchildren. He is a former smoker who quit approximately 15 years ago, but did smoke for some 25 years or more. He denies any alcohol use. REVIEW OF SYSTEMS: He has not had any chest pain or palpitations. He does have some baseline exertional shortness of breath. He has not had any recent cough or sputum production. He denies any recent rectal bleeding, diarrhea or constipation. He has had no dysuria or hematuria. He does have some chronic back pain. He has no history of deep venous thrombosis (DVT) or pulmonary embolus. PHYSICAL EXAMINATION: Reveals an older man, lying quietly in the intensive care unit bed. His most recent vital signs reveal a pulse of 93 with a respiratory rate of 32 and his blood pressure is 98/55 on Levophed. His pulse oximetry is 96% on 4 liters nasal cannula oxygen. His respiratory effort does appear somewhat increased. He is able to speak in short sentences. Skin is warm and dry. Sclerae are anicteric. Mucous membranes are tacky. His neck is supple. Heart exam shows a regular rhythm. The lungs show distant breath sounds bilaterally, without rhonchi or definite wheezes. His abdomen shows an old right lower quadrant oblique scar consistent with an appendectomy. He has several small trocar site scars in the upper abdomen. The abdomen is perhaps mildly distended. He does have some faint bowel sounds in the upper quadrants of the abdomen. There is no tympany to percussion. He has tenderness to percussion in the low midabdomen and most particularly in his right lower quadrant. On palpation the abdomen feels somewhat full and there is tenderness across the lower abdomen with the point of maximal tenderness in the right lower quadrant. There is no evident hernia. Extremities show palpable pedal and radial pulses. His laboratory studies show that his most recent medical profile from 0537 hours on 03/27/2017 showed a sodium of 135, potassium 5.0, chloride 104, CO2 of 15, BUN of 21, creatinine 1.75 and a glucose of 90. His lactic acid at that time was 6.5. He had a cardiac injury profile at 0727 hours that showed a troponin of less than 0.02. When the patient had presented at 1956 hours on 03/26/2017, his creatinine was only 1.19. His total bilirubin was 1.5 with a direct of 0.5, but his other liver function tests were unremarkable. Troponin at that time was also less than 0.05. He had a arterial blood gas at 0839 hours on the morning of 03/27/2017 showing a pH of 7.23, CO2 of 30 and an O2 of 81 with base excess of -13.8. He had a CT scan of the abdomen and pelvis late on 03/26/2017. This showed some stool filling the rectosigmoid area. There was some air and stool in the colon more diffusely. He had a small pleural effusion, particularly on the right with some degree of emphysema noted by the radiologist. There may be some very faint haziness of the outline of the transverse colon, which might suggest some inflammatory change, but this is subtle. There is definitely no free air. The patient has had a central line placed by Dr. Rosales of thoracic surgery and apparently the patient has a small pneumothorax and placement of a chest tube is being considered. IMPRESSION: 1. 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 2. Sepsis with hypotension, worsening renal function, and elevated lactic acid secondary to #1. 3. Diabetes mellitus. 4. Chronic obstructive pulmonary disease. 5. Hyperthyroidism. 6. Osteoporosis. 7. Chronic back pain. 8. History of coronary artery disease, though we have no documentation of the nature of this problem. 9. Dyslipidemia. 10. Gastroesophageal reflux disease. 11. Depression. 12. Possible left pneumothorax. PLAN: The patient does have some significant abdominal tenderness with a rapid deterioration in his clinical and chemical picture suggesting intestinal infarction. I have recommended that we proceed urgently to the operating room for exploration. If he has a small segment of ischemic intestine, resection may be curative. Unfortunately, if a more widespread area is affected, then he may not survive this event. The patient was counseled that we may find that he has an unrecoverable situation. He does have some bowel sounds and has not deteriorated so rapidly that I would think he has a infarction of his entire intestinal tract. He has received antibiotics in the form of Zosyn and vancomycin. I believe he has been adequately fluid resuscitated at this time. He was counseled that given his underlying lung disease that he may well remain intubated post-op and that it is impossible at this time to see how long his recovery or demise might take. The patient wishes to proceed with the surgery despite the high risk of problems. He will therefore be taken to the operating room in the next hour or so when the room is available. LALO
--- NOTE | 2017-03-27 11:57 | REP ---
Chest one-view HISTORY: Chest tube insertion Comparison: 10:13 a.m. 03/27/2017 The patient is status post left chest tube insertion. A small left pneumothorax is present unchanged compared to the previous study. Increased density is present in the left upper lobe consistent with a contusion. Increased density is present in the left lower lobe consistent with atelectasis.. The heart is normal in size. The pulmonary vasculature is normal in appearance. Impression: 1. The patient is status post left chest tube insertion. A small left pneumothorax is present unchanged compared to the previous study. 2. Left upper lobe contusion. 3. Left lower lobe atelectasis. Signed by Kelechi Starkey MD 03/27/2017 11:49 A
[2017-03-27] MEDS: HYDROCORTISONE 100 MG/2 ML VIAL (J1720) IV SCH ×3 (12:00→23:53)
--- NOTE | 2017-03-27 12:44 | REP ---
Chest one-view HISTORY: Shortness of breath Comparison: 11:41 a.m. 03/27/2017 A chest tube is present in the left hemithorax. A small left pneumothorax is present unchanged in size compared to the previous study. Patchy density is present in the left upper lobe consistent with a contusion that is increased in size compared to the previous study. Increased density is present in the left lower lobe consistent with atelectasis unchanged compared to the previous study. The right lung is clear. he heart is normal in size. The pulmonary vasculature is normal in appearance. Impression: 1. Small left pneumothorax unchanged compared to the previous study. A left chest tube is present. 2. Left upper lobe contusion increased in size compared to the previous study. 3. Left lower lobe atelectasis unchanged compared to the previous study. Signed by Kelechi Starkey MD 03/27/2017 12:35 P
[2017-03-27 13:14] LABS: ABG BASE EXCESS -16.1 (-2.0-2.0); ABG DEVICE MECHAN. VENT; ABG PARTIAL PRESSURE CO2 36.5 mmHg (35.0-45.0); ABG PARTIAL PRESSURE O2 269.5 mmHg (75.0-100.0); ABG STANDARD HCO3 12.2 MEQ/L (22.0-26.0); ABG TOTAL CO2 13.1 MEQ/L (23.0-31.0)
[2017-03-27 13:19] LABS: ABG pH (ARTERIAL) 7.135 UNITS (7.350-7.450)
[2017-03-27] MEDS ORDERED: ROCURONIUM BROMIDE 50 MG/5 ML VIAL/SYRINGE As Ordered ONE (13:28)
[2017-03-27] MEDS ORDERED: fentaNYL 250 MCG/5 ML INJECTION (J3010) As Ordered ONE (13:28)
[2017-03-27] MEDS ORDERED: ONDANSETRON 4MG/2ML VIAL (J2405) As Ordered ONE (13:28)
[2017-03-27] MEDS ORDERED: LIDOCAINE 2% INJ 100 MG/5 ML SDV (FOR ANES.) As Ordered ONE (13:28)
[2017-03-27] MEDS ORDERED: HYDROCORTISONE INJ 250 MG VIAL (J1720) As Ordered ONE (13:28)
[2017-03-27] MEDS ORDERED: PROPOFOL 200 MG/20 ML VIAL As Ordered ONE (13:28)
[2017-03-27] MEDS ORDERED: **NOTE PATIENT COMMENT** MISC XX ONE (13:30)
[2017-03-27] MEDS ORDERED: SODIUM BICARBONATE 8.4% INJ 50 ML SYRINGE As Ordered ONE ×2 (13:37→14:22)
[2017-03-27] MEDS ORDERED: FLUMAZENIL 0.5 MG/5 ML VIAL IV STA (13:37)
[2017-03-27] MEDS ORDERED: HYDROmorphone HCL 2 MG/ML 1ML VIAL (J1170) As Ordered ONE (13:42)
[2017-03-27 13:52] LABS: CALCIUM LEVEL 6.1 MG/DL (8.8-10.2); CREATININE FOR GFR 1.88 MG/DL (0.70-1.30); GLOMERULAR FILTRATION RATE 37.8 (>42); MEAN CORPUSCULAR HEMOGLOBIN 31.2 pg (27.0-33.0); MEAN CORPUSCULAR HGB CONC 32.1 g/dl (32.0-36.5); MEAN CORPUSCULAR VOLUME 97.3 fl (80.0-96.0); POTASSIUM SERUM 4.8 MEQ/L (3.5-5.1); RED CELL DISTRIBUTION WIDTH 13.2 % (11.5-14.5)
[2017-03-27] MEDS ORDERED: CALCIUM CHLORIDE 10% 1 GM/10 ML SYR As Ordered ONE (14:22)
[2017-03-27 14:32] LABS: ABG BASE EXCESS -13.4 (-2.0-2.0); ABG DEVICE MECHAN. VENT; ABG HCO3 13.9 MEQ/L (22.0-26.0); ABG PARTIAL PRESSURE CO2 37.4 mmHg (35.0-45.0); ABG STANDARD HCO3 14.1 MEQ/L (22.0-26.0); ABG TOTAL CO2 15.1 MEQ/L (23.0-31.0); ABG pH (ARTERIAL) 7.189 UNITS (7.350-7.450)
[2017-03-27 14:33] LABS: ABG PARTIAL PRESSURE O2 208.3 mmHg (75.0-100.0)
[2017-03-27] MEDS ORDERED: PROPOFOL 500 MG/50 ML VIAL As Ordered ONE (15:32)
[2017-03-27] MEDS ORDERED: ZOSYN 3.375 GM VIAL (J2543) As Ordered ONE (15:58)
[2017-03-27] MEDS ORDERED: fentaNYL 100 MCG/2 ML INJECTION (J3010) IV PRN (16:45)
[2017-03-27] MEDS ORDERED: ONDANSETRON 4MG/2ML VIAL (J2405) IV PRN (16:45)
[2017-03-27] MEDS ORDERED: MORPHINE 2 MG/ML 1ML SYRINGE IV PRN (16:45)
[2017-03-27] MEDS ORDERED: LR 1,000 ML IV SCH (16:45)
[2017-03-27 18:19] LABS: ABG BASE EXCESS -16.9 (-2.0-2.0); ABG HCO3 13.2 MEQ/L (22.0-26.0); ABG PARTIAL PRESSURE CO2 48.3 mmHg (35.0-45.0); ABG PARTIAL PRESSURE O2 146.8 mmHg (75.0-100.0); ABG STANDARD HCO3 11.8 MEQ/L (22.0-26.0); ABG TOTAL CO2 14.6 MEQ/L (23.0-31.0)
[2017-03-27 18:20] LABS: ABG pH (ARTERIAL) 7.053 UNITS (7.350-7.450)
[2017-03-27] MEDS: PROPOFOL 1,000 MG in APPROPRIATE DILUENT 1 EA IV SCH (18:22)
[2017-03-27] MEDS: MORPHINE 2 MG/ML 1ML SYRINGE IV PRN (18:23)
[2017-03-27] MEDS: PANTOPRAZOLE 40MG INJ (PROTONIX) (C9113) IV SCH (18:23)
[2017-03-27] MEDS: LR 1,000 ML IV SCH (18:24)
[2017-03-27 18:28] LABS: ADD MANUAL DIFFER YES; MEAN CORPUSCULAR HEMOGLOBIN 31.7 pg (27.0-33.0); MEAN CORPUSCULAR HGB CONC 32.5 g/dl (32.0-36.5); MEAN CORPUSCULAR VOLUME 97.6 fl (80.0-96.0); PLATELET COUNT, AUTOMATED 207 k/mm3 (150-450); RED CELL DISTRIBUTION WIDTH 13.1 % (11.5-14.5)
[2017-03-27 18:45] LABS: BILIRUBIN,TOTAL 0.8 MG/DL (0.2-1.0); CALCIUM LEVEL 6.5 MG/DL (8.8-10.2); CREATININE FOR GFR 2.05 MG/DL (0.70-1.30); GLOMERULAR FILTRATION RATE 34.2 (>42); MAGNESIUM LEVEL 1.8 MG/DL (1.8-2.4); PHOSPHORUS LEVEL 8.3 MG/DL (2.5-4.9); POTASSIUM SERUM 5.1 MEQ/L (3.5-5.1)
[2017-03-27 18:52] LABS: BANDS 25 % (< 11)
[2017-03-27 18:53] LABS: CRENATED RBC 2+
[2017-03-27 19:00] LABS: ALBUMIN/GLOBULIN RATIO 0.81 (1.00-1.93)
[2017-03-27 19:10] LABS: ALBUMIN 1.7 GM/DL (3.2-5.2); TOTAL PROTEIN 3.8 GM/DL (6.4-8.2)
--- NOTE | 2017-03-27 19:25 | CCN ---
DATE: 03/27/2017 NOTE: Asked by Dr. Stafford to evaluate Mr. Higgins for acute respiratory failure postoperatively requiring mechanical ventilation. Mr. Higgins is a 72-year-old white male who was admitted on 03/26/2017, after presenting to the emergency department with a syncopal episode at home. In the emergency department, he was found to be hypotensive. Over the next several hours, he was given several fluid boluses without significant improvement in his blood pressure. He also was complaining of increasing abdominal discomfort and had an increasing lactate level. He was evaluated by surgery earlier today who felt that he likely had an ischemic/infarcted bowel. He was taken to the operating room where he was found to have bowel ischemia / infarction requiring resection from the mid transverse colon to the cecum. This was resected and a colostomy was done. He lost 100 mL of blood during the surgery. He had been on vasopressors throughout the surgery and did not have significant variation in the level required. He received approximately 4000 mL of crystalloid during the procedure. At the present time, Mr. Higgins is sedated and paralyzed. He remains on 24 mcg of Levophed with a mean arterial pressure (MAP) of 67. He is not showing any significant resistance and has good compliance on the ventilator. Mr. Higgins' past medical history is significant for diabetes mellitus, hypertension, dyslipidemia, hypothyroidism, gastroesophageal reflux disease (GERD), coronary artery disease (CAD), osteoporosis, depression, and chronic obstructive pulmonary disease (COPD) for which he has been on daily systemic corticosteroids for, I believe, over a year. However, his COPD is only moderately severe with his last FEV-1 in January of 2016, 50%. He is followed by Dr. Garg. MEDICATIONS: Medications in the hospital include Levophed drip, scheduled DuoNeb, aspirin, Celexa, ferrous sulfate, folic acid, omeprazole, prednisone, propylthiouracil, Advair 115/21, Senokot-S, MiraLAX, vancomycin, Zosyn, subcutaneous heparin, sliding-scale insulin, stress dose hydrocortisone, ropinirole, Zocor, and as needed Zofran and Tylenol. ALLERGIES: AZITHROMYCIN, IBUPROFEN, LEVAQUIN, QUINOLONES, TOBRAMYCIN, and ZOLPIDEM. I do not what happens with any of these medications. PHYSICAL EXAMINATION: GENERAL: Mr. Higgins is lying in bed, currently paralyzed so cannot tell if he is synchronous or not with the ventilator. VITAL SIGNS: Temperature 98.9, blood pressure 106/45 (MAP 67), heart rate 94, respiratory rate 18, SpO2 99% on an FiO2 of 0.8. HEENT: Anicteric. Pupils 2-3 mm and sluggish. Nares nasogastric (NG) tube in place. Oropharynx endotracheal (ET) tube in place at 24 cm at the lips. NECK: Supple, without apparent jugular venous distention (JVD) but difficult exam secondary to body habitus. CHEST: Left subclavian line and left-sided chest tube in place. No air leak. No subcutaneous air. LUNGS: Symmetric excursion. Good air entry. No wheeze, rhonchi or crackle on tidal excursion. Perhaps mildly prolonged expiratory phase. No accessory muscle usage or retractions (though paralyzed). CARDIOVASCULAR: Regular rate and rhythm with a normal S1, S2. No murmur, rub, or gallop appreciated. ABDOMEN: Absent bowel sounds, mild distention, midline incision dressing clean and dry. Left upper quadrant colostomy with viable appearing tissue. EXTREMITIES: Warm and well perfused, without clubbing, cyanosis or significant edema. Palpable pedal pulses bilaterally. LABORATORY DATA: Most recent CBC from 13:10 shows a hemoglobin of 10.6, hematocrit 32.9, platelet count 185,000, white blood cell count 14,000. Chemistries from the same time showed sodium 136, potassium 4.8, chloride 106, bicarbonate 14, anion gap 16, BUN 25, creatinine 1.9, glucose 131, lactic acid 4.3 (peak 6.5 at 05:37), and calcium is 6.1. Most recent arterial blood gas from 14:19, was 7.19/37/208, with a measured saturation of 99% and a base excess of -13.4. I believe that was on FiO2 of 0.95 intraoperatively. Intake and output (I and O) thus far today is 10,165 in and 205 out, making him positive 9960. Weight 81 kg. I reviewed his chest x-ray as well as the report from earlier today. That x-ray shows normal cardiac silhouette, pulmonary vascular shadows. Left lower lobe atelectasis. No consolidated regions. Left upper lobe contusion with a chest tube in place and a small pneumothorax. ASSESSMENT: 1. Acute respiratory failure postoperatively leading to mechanical ventilation. 2. Hypotension secondary to sepsis requiring vasopressors. 3. Severe sepsis with shock. 4. Postoperative day zero status post mid-transverse colon to cecum resection for ischemic/infarcted bowel. 5. Lactic acidemia likely secondary to ischemic/infarcted bowel and sepsis. 6. Chronic obstructive pulmonary disease, moderately severe at baseline, on chronic steroids. 7. Acute kidney injury. 8. Diabetes mellitus. 9. Hypertension. 10. Coronary artery disease per chart. 11. Infectious disease (ID) on vancomycin and Zosyn. 12. Stress ulcer prophylaxis with proton pump inhibitor (PPI). 13. Deep venous thrombosis (DVT) prophylaxis with sequential compression devices (SCDs) and thromboembolism deterrent stockings (TEDs). 14. Diet: Currently nothing by mouth. RECOMMENDATIONS: 1. Would continue Levophed. 2. Would aim for MAP greater than 65. [address] him on lung protector strategy ventilation. His 6 mL/kg tidal volume is 383, his 7 mL/kg tidal volume is 447, and his 8 mL/kg tidal volume is 510. All of these are based on predicted body weight. 4. I would prefer to use Propofol, at least initially, for sedation if possible. Requirements for vasopressors may limit our ability to do that, in which case will be changed to Versed drip. 5. Recommend using CVP to guide fluid replacement. 6. He has received a significant amount of crystalloid and is at risk for developing hyperchloremic metabolic acidosis and, therefore, I would use lactated Ringer's (LR) as his resuscitative fluid as needed, and as his baseline IV fliud. 7. Will obtain a chest x-ray now as we do not have one postoperatively. 8. Agree with stress dosing of hydrocortisone, thought likely will only need for 24-48 hours. CRITICAL CARE TIME: 40 minutes not including procedure time. ASHLEYD
[2017-03-27 20:14] LABS: ABG BASE EXCESS -14.9 (-2.0-2.0); ABG HCO3 13.5 MEQ/L (22.0-26.0); ABG PARTIAL PRESSURE CO2 40.9 mmHg (35.0-45.0); ABG PARTIAL PRESSURE O2 144.4 mmHg (75.0-100.0); ABG STANDARD HCO3 13.1 MEQ/L (22.0-26.0); ABG TOTAL CO2 14.7 MEQ/L (23.0-31.0)
[2017-03-27] MEDS: IPRATROPIUM 0.5MG/ALBUTEROL 2.5MG INH SOL UD 3ML (DUONEB)(J7620) NEB SCH ×2 (20:14→23:22)
[2017-03-27 20:15] LABS: ABG pH (ARTERIAL) 7.136 UNITS (7.350-7.450)
[2017-03-27] MEDS: CHLORHEXIDINE GLUCONATE 0.12 % 15ML UDC (PERIDEX ORAL RINSE) MT SCH (20:47)
[2017-03-27] MEDS: NOREPINEPHRINE BITARTRATE 8 MG in D5W 500 ML IV SCH (21:19)
[2017-03-27] MEDS: MIDAZOLAM INJ 2 MG/2 ML VIAL (J2250) IV PRN (22:16)
[2017-03-28] VITALS (28 sets, daily range): BP systolic 75–165; BP diastolic 33–63
[2017-03-28] MEDS: PIPERACILLIN/TAZOBACTAM SOD 3.375 GM in D5W MINI-BAG PLUS 50 ML IV SCH ×4 (01:23→19:28)
[2017-03-28] MEDS: MIDAZOLAM INJ 2 MG/2 ML VIAL (J2250) IV PRN ×3 (01:23→06:06)
[2017-03-28] MEDS: NOREPINEPHRINE BITARTRATE 8 MG in D5W 500 ML IV SCH ×3 (02:39→13:57)
[2017-03-28] MEDS: IPRATROPIUM 0.5MG/ALBUTEROL 2.5MG INH SOL UD 3ML (DUONEB)(J7620) NEB SCH ×5 (03:16→20:08)
[2017-03-28] MEDS: PROPOFOL 1,000 MG in APPROPRIATE DILUENT 1 EA IV SCH ×5 (05:16→21:20)
[2017-03-28] MEDS: HEPARIN SOD (PORCINE) 5000 UNITS/ML VIAL SC SCH ×3 (05:31→21:35)
[2017-03-28] MEDS: HYDROCORTISONE 100 MG/2 ML VIAL (J1720) IV SCH ×3 (05:31→18:13)
[2017-03-28] MEDS: LR 1,000 ML IV SCH ×2 (05:32→12:29)
[2017-03-28] MEDS: HumaLOG INSULIN (NovoLOG) PER UNIT SC SCH ×3 (05:41→18:14)
[2017-03-28 06:02] LABS: ADD MANUAL DIFFER YES; DIFF SLIDE NUMBER 59; MEAN CORPUSCULAR HEMOGLOBIN 30.6 pg (27.0-33.0); MEAN CORPUSCULAR HGB CONC 33.1 g/dl (32.0-36.5); PLATELET COUNT, AUTOMATED 178 k/mm3 (150-450); RED CELL DISTRIBUTION WIDTH 13.1 % (11.5-14.5); WHITE BLOOD COUNT 13.4 K/mm3 (4.0-10.0)
[2017-03-28 06:06] LABS: ABG BASE EXCESS -10.7 (-2.0-2.0); ABG HCO3 13.8 MEQ/L (22.0-26.0); ABG PARTIAL PRESSURE CO2 26.7 mmHg (35.0-45.0); ABG PARTIAL PRESSURE O2 109.9 mmHg (75.0-100.0); ABG TOTAL CO2 14.6 MEQ/L (23.0-31.0); ABG pH (ARTERIAL) 7.331 UNITS (7.350-7.450)
[2017-03-28 06:08] LABS: MEAN CORPUSCULAR VOLUME 92.5 fl (80.0-96.0)
[2017-03-28 06:21] LABS: ANION GAP 16 MEQ/L (8-16); BLOOD UREA NITROGEN 33 MG/DL (7-18); CALCIUM LEVEL 6.5 MG/DL (8.8-10.2); CARBON DIOXIDE LEVEL 15 MEQ/L (21-32); CHLORIDE LEVEL 105 MEQ/L (98-107); CREATININE FOR GFR 2.16 MG/DL (0.70-1.30); GLOMERULAR FILTRATION RATE 32.2 (>42); GLUCOSE, FASTING 208 MG/DL (83-110); POTASSIUM SERUM 4.6 MEQ/L (3.5-5.1); SODIUM LEVEL 136 MEQ/L (136-145)
[2017-03-28 06:35] LABS: BANDS 20 % (< 11); TOXIC VACUOLATION 1+
[2017-03-28 06:36] LABS: BURR CELLS 1+; TOXIC GRANULATION 1+
--- NOTE | 2017-03-28 08:03 | RO ---
DATE OF PROCEDURE: 03/26/2017 PREPROCEDURE DIAGNOSIS: Hypotension and need for vascular access, cardiac monitoring and pressor support. POSTPROCEDURE DIAGNOSIS: Hypotension and need for vascular access, cardiac monitoring and pressor support. PROCEDURE: Insertion of left subclavian central line. SURGEON: Ashvin Rosales MD BILL BOARD POSTER: ANESTHESIA: DESCRIPTION OF PROCEDURE: Patient's infraclavicular fossa was prepped and draped in the usual sterile fashion. It was infiltrated with 1% xylocaine and the vein was found on the second pass. The vein was wired without difficulty with production of PVCs. The tract was incised and dilated, and a triple lumen catheter was placed by Seldinger technique. Ports were aspirated and flushed without difficulty, and the catheter was secured to the chest wall with two #3-0 silk sutures. The patient tolerated the procedure well, and a chest x-ray is pending.
--- NOTE | 2017-03-28 08:33 | RO ---
DATE OF PROCEDURE: 03/27/2017 PREPROCEDURE DIAGNOSIS: Left pneumothorax. POSTPROCEDURE DIAGNOSIS: Left pneumothorax. PROCEDURE: Insertion of left anterior chest tube. SURGEON: Dr. Ashvin Rosales METAL BED ASSEMBLER: ANESTHESIA: The patient is going to the operating room and he has a very small pneumothorax. However, with positive pressure ventilation for safety's sake, I felt that it was prudent to place a chest tube. PROCEDURE: The patient was prepped and draped in the usual sterile fashion and under moderate sedation achieved with 2 mg of Versed incision was made over the second rib. The tunnel was created into the chest after instilling 1% lidocaine. A #20 chest tube was placed without difficulty. The chest tube was secured to the chest wall with #2 Tevdek suture. The patient tolerated the procedure well and a chest x-ray is pending. Moderate sedation and monitoring time 20 minutes. [facility]
[2017-03-28] MEDS ORDERED: LACTATED RINGER'S 1000 ML IV ONE (09:00)
[2017-03-28] MEDS: PANTOPRAZOLE 40MG INJ (PROTONIX) (C9113) IV SCH (09:05)
[2017-03-28] MEDS: CHLORHEXIDINE GLUCONATE 0.12 % 15ML UDC (PERIDEX ORAL RINSE) MT SCH ×2 (09:05→21:34)
--- NOTE | 2017-03-28 09:25 | REP ---
PORTABLE CHEST, ONE VIEW: HISTORY: Intubation. COMPARISON: 12:46 p.m. 03/27/2017 A chest tube is present in the left hemithorax. A small left pneumothorax is present unchanged compared to the previous study. Patchy density is present in the left upper lobe consistent with a contusion that is unchanged compared to the previous study. Increased density is present in the left lower lobe consistent with atelectasis unchanged compared to the previous study. The right lung is clear. The heart is normal in size. The pulmonary vasculature is normal in appearance. An ET tube is present. IMPRESSION: 1. Small left pneumothorax unchanged compared to the previous study. A left chest tube is present. 2. Left upper lobe contusion unchanged compared to the previous study. 3. Left lower lobe atelectasis unchanged compared to the previous study. Signed by Kelechi Starkey MD 03/28/2017 09:28 A
--- NOTE | 2017-03-28 09:39 | REP ---
PORTABLE CHEST X-RAY: Single view. HISTORY: Intubated. COMPARISON STUDY: March 27, 2017. FINDINGS: A left apical chest tube remains in place. There is extensive extrathoracic subcutaneous emphysema in the left axilla and pectoralis muscle and along the left chest wall extending into the supraclavicular soft tissues similar to yesterday's radiograph. There is a small left-sided pneumothorax. The left subclavian catheter is seen with its tip terminating in the expected location of the superior vena cava. NG tube enters left upper quadrant. Endotracheal tube is seen at the level of the transverse aorta. The right lung remains clear. There is hazy opacity at the left base, which may pleural fluid and/or atelectasis in the left lower lobe. The left hemidiaphragm is obscured as before. IMPRESSION: Essentially stable chest x-ray findings. Small left-sided pneumothorax left chest tube in place. Fairly extensive soft tissue emphysema along the left chest. Signed by Rodolfo Chester MD 03/28/2017 02:43 P
--- NOTE | 2017-03-28 11:05 | RO ---
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 PROCEDURE PERFORMED: Exploratory laparotomy with resection of distal transverse, descending, and sigmoid colon with end colostomy at the transverse colon level and oversewing of the rectal stump. SURGEON: Dr. Ashvin Crews ANESTHESIA: General. INDICATIONS FOR PROCEDURE: The patient is a 72-year-old man who suffered a syncopal episode at home on the late afternoon to evening of March 26. He apparently was helped up by a neighbor and EMS responded. While EMS was present , he had a second syncopal episode and they actually reported him to be pulseless, but he then recovered spontaneously without any resuscitative efforts. He was brought to the emergency department where he was found to be somewhat hypotensive. He was admitted to medicine for treatment and received several liters of IV fluids. Overnight, he developed some increasing abdominal pain, particularly in the right lower quadrant and he was noted to have a rising lactate level with worsening renal function, all suggestive of an intestinal infarction. I was consulted and he is now for an exploratory laparotomy. OPERATIVE PROCEDURE: The patient was taken to the operating room and placed on the table in a supine position. The patient had a Davila catheter in place. He was on a Levophed drip to support his blood pressure. He was placed under general anesthesia. A radial arterial line was placed. He had a left-sided chest tube in place which had been placed by Dr. Rosales prior to his transfer to the operating room. Once the patient had been adequately prepared by anesthesia , the patient's abdomen was prepped and draped in a sterile fashion. The abdomen was entered through a midline incision, perhaps 15 cm in length centered on the umbilicus. This was deepened through the peritoneum. There was some clear slightly yellowish serous fluid identified on initial opening of the abdomen. As the greater omentum was elevated and inspection occurred, there was some more turbid appearing fluid noted in the right lower quadrant and I identified low in the midline some dusky appearing bowel with some obvious patchy infarction. I elected to extend the incision both superiorly and inferiorly. A [place] retractor was placed. The omentum was elevated. The small bowel appeared to be viable. He was found to have patchy infarction from the mid transverse colon all the way down to the rectosigmoid region. In some areas, there was a darker appearance to the bowel wall suggesting mucosal necrosis where as in other areas , particularly in the proximal sigmoid and in the hepatic flexure, there was obvious full-thickness infarction of the bowel. I elected to proceed with resection. Initially, an opening was created through the mesentery of the colon at the rectosigmoid area. Two loads of a TX60G stapler were placed across the bowel and the bowel was divided between. Inspection showed that the mucosa appeared dark where it was exposed along the cut edge, though the bowel wall, the muscular portion, was clearly viable. I used the harmonic scalpel to divide the mesentery of the sigmoid colon working from the cut edge extending proximally. The descending colon was mobilized up toward the splenic flexure. I then selected a point for division of the transverse colon. The proximal portion appeared supple and thin-walled with some thickening noted in the distal portion of transverse colon. A point was selected and an opening was created through the mesentery and the transverse colon was divided with a load of the 75 mm linear cutter. Again, the harmonic scalpel device was used to divide the mesentery. Because this was not a cancer resection, the mesentery was divided closer to the bowel wall for ease of identification and ease of surgery. Then, working from both proximal and distal, I continued the dissection toward the splenic flexure. The attachments of the colon were carefully divided ensuring hemostasis. The area of most obvious infarction of the colon full-thickness was in the region of the splenic flexure. Once this had been completely freed, the long segment of colon was placed in a specimen valentin. The abdomen was then thoroughly irrigated. There were some fragments of fibrinous exudate here and there, which were removed by irrigation. The small bowel was run from the ligament of Treitz to the ileocecal valve and was clearly viable. The cecum and ascending colon were slightly obscured by some adhesions from prior appendectomy, but the colon did not show any ischemic process in this area. As the mucosa of the rectal stump where it was exposed appeared ischemic, but the bowel wall appeared healthy otherwise, I oversewed the staple line with a running suture of #2-0 Prolene. I elected to proceed with creation of a colostomy. By dividing the peritoneum on the superior and inferior aspect of the transverse colon mesentery, I was able to gain some additional flexibility to bring the bowel up to the abdominal wall. This appeared to reach best into the left upper quadrant for creation of the stoma. A stoma site was selected in the left upper quadrant. A disk of skin and subcutaneous fat was excised and a longitudinal incision was made in the anterior fascia of the rectus sheath. The rectus muscle fibers were spread and the posterior peritoneum was opened longitudinally as well. The end of colon was delivered through the opening without great difficulty. Once the colon was in place, the abdomen was irrigated a final time to remove any residual exudate. The peritoneum in the lower portion of the wound was closed with a running suture #0 chromic. The fascia was closed with interrupted simple sutures of #1 Vicryl. The skin incision was closed with skin rhett. I then proceeded to mature the ostomy. The staple line was cut off the end of the bowel. There was a small area along the inferior edge of the stoma where the mucosa appeared to have infarcted, but again the bowel wall otherwise was clearly viable. Given the limited length of bowel available, I elected not to excise this. Four everting sutures of #3-0 Vicryl were placed to ivory the end of bowel, which was nicely accomplished. Additional sutures were then placed to suture the edge of the colon to the skin edge. This achieved a nice eversion of the stoma. An ostomy appliance was placed. The patient tolerated the procedure surprisingly well. He did continue to require epinephrine support during the procedure. He was left intubated and sedated given the critical nature of his status at that time. He was transported to the recovery room. [facility]
--- NOTE | 2017-03-28 11:56 | CCN ---
DATE: 03/28/2017 NOTE: Mr. Higgins remains critically ill with acute respiratory failure postoperatively requiring mechanical ventilation. He remains hypotensive from severe sepsis with shock and is requiring vasopressors, though they have been able to be weaned slightly. He also has acute kidney injury. On his sedation vacation this morning he was following commands. He indicated his pain was well controlled and that he felt he was getting enough air. OBJECTIVE: PHYSICAL EXAMINATION: GENERAL: Mr. Higgins is lying in bed in no acute distress. Initially, he was desynchronous with the ventilator, but did much better when he was placed on pressure support mode. VITAL SIGNS: Temperature 98.1 with a T-max of 99.3, pulse 107, respiratory rate 21, blood pressure 114/36 with an MAP of 62. SpO2 98% on room air. HEENT: Mild scleral edema, 2-3 mm and pupils equal, round, reactive to light. NECK: Supple, without thyromegaly or masses. Trachea is midline. LYMPH: Without cervical or supraclavicular lymphadenopathy. CHEST: Normal shape, subcutaneous air on the left upper region extending penitentiary down the upper left arm. There is a left sided chest tube in place with no air leak. There is a left subclavian line with a dressing clear and dry. LUNGS: Symmetric excursion, good air entry, diminished breath sounds at the bases bilaterally, mildly prolonged expiratory phase, no accessory muscle usage or retractions. CARDIOVASCULAR: Distant, regular rate and rhythm, normal S1 and S2, no murmur, rub, or gallop appreciated. ABDOMEN: I could not appreciate any bowel sounds, mild distention, midline dressing clean and dry. Colostomy shows viable tissue. EXTREMITIES: Without clubbing, cyanosis. Trace edema. Palpable pedal pulses bilaterally. Sequential compression devices (SCD) and thromboembolic deterrent stockings (TEDS) in place. LABORATORY DATA: CBC from this morning shows a hemoglobin of 10.5, hematocrit 31.8, platelet count 178,000, white blood cell count 13,400. Differential is 69% neutrophils, 20% bands, 9% lymphs. Chemistries show a sodium of 136, potassium 4.6, chloride 105, bicarbonate 15, anion gap 16, BUN 33, creatinine 2.2, glucose 208, calcium 6.5, ionized calcium 3.9, CK 154, CK-MB 4.8, Troponin I less than 0.02. Arterial blood gas on assist control with a tidal volume of 400 and a rate of 18 and a PEEP of 5 with an FiO2 of 0.4 was 7.33//110, with a measured saturation of 98% and a base excess of -10.7. Preliminary blood culture from 03/27/2017 shows gram negative rods. Gram stain from surgical culture shows 2 WBCs and no organisms. I reviewed his chest x-ray as well as the report from earlier today. That x-ray showed normal cardiac silhouette and pulmonary vascular shadows. No consolidated region. The previously seen left upper lobe contusion appears better. There now, however, appears to be blunting of the left costophrenic angle. There remains a small left sided pneumothorax. There is increased soft tissue emphysema. Yesterday's intake and output show 11,531 in and 373 out making him positive 11,158. Thus far, 1790 in and 891 out, making him positive 899. Weight 92.8 kg. IMPRESSION: 1. Acute respiratory failure postoperatively leading to mechanical ventilation. 2. Severe sepsis with shock, on vasopressors. 3. Postoperative day 1 status post colonic resection from the transverse colon to cecum with creation of colostomy. 4. Acute kidney injury likely secondary to hypovolemia. 5. Diabetes mellitus on sliding scale insulin. 6. Chronic obstructive pulmonary disease (COPD), moderately severe, on bronchodilators. 7. Chronic prednisone usage, receiving stress steroids. Likely can be discontinued in the next 24-48 hours. 8. Infectious disease (ID) on Zosyn. 9. Deep venous thrombosis (DVT) prophylaxis and stress ulcer prophylaxis in place. 10. Nutrition. Currently nothing by mouth. RECOMMENDATIONS: 1. Given his high minute ventilation secondary to sepsis, we will change him to pressure support modality. He appears more comfortable on this mode and this should allow him to require less sedation. 2. Continue to wean vasopressor as tolerated, accepting an MAP greater than or equal to 65. 3. Continue to monitor central venous pressure. Anticipate that he will require several fluid boluses secondary to third spacing. 4. Continue current antibiotics. 5. Will start TPN. PROGNOSIS: Guarded. Critical care time 45 minutes not including procedure time. [facility]
--- NOTE | 2017-03-28 13:22 | IPN ---
DATE: 03/28/2017 The patient is in the intensive care unit (ICU) now 1 day post-op from exploratory laparotomy and a colon resection for infarcted transverse, descending and sigmoid colon. He has generally done well overnight. He remains sedated with propofol and as needed Versed. He remains on the ventilator but has been shifted to PSV at 40% oxygen. His Levophed drip has been weaned to off currently with a blood pressure maintained at a mean of approximately 60-65 mmHg. Most recent vital signs show pulse of approximately 100-105. His respiratory rate is 24 and his blood pressure is correlating fairly well between the cuffs and the arterial line with a mean of about 60. He has an excellent urine output today of 800 mL with a minimal amount out of his ostomy, which is probably primarily edema fluid. He has a chest tube in place with no significant output and no air leak. Physical exam reveals that he is currently sedated. He does move somewhat to stimulation. Heart exam shows a regular rhythm. The lungs show good bilateral breath sounds. The abdomen is flat to mildly full. He has a dry dressing along his midline incision. His ostomy in the left upper quadrant is quite edematous but clearly viable. He has palpable pedal pulses bilaterally. Laboratory studies this morning show a white count of 13,000 with a hemoglobin of 10, hematocrit of 32 and a platelet count of 178,000. Differential count shows 69% neutrophils, 20 bands and 9 lymphocytes. This is actually improved from the night of 03/27/2017. His chemistries show that his lactic acid had decreased to 3.9 by last evening following his surgery. His chemistry shows a sodium of 136, potassium 4.6, chloride 105, CO2 of 15, BUN of 33 and a creatinine of 2.16, and glucose his 208. Cardiac panel shows a troponin of less than 0.02. A blood gas at almost 6 o'clock this morning showed a pH of 7.33, CO2 of 27 and O2 of 110 with a base excess of -10.7. His chest x-ray this morning shows that his chest tube has a configuration that looks somewhat angled at the insertion site and it may go posteriorly. I cannot tell if there might be a small pneumothorax still present that he clearly has some air in the chest wall of the left upper chest. His endotracheal tube (ET) tube appears to be in good position and his nasogastric (NG) tube is below the diaphragm. Impression is overall I think patient is doing extremely well following his surgery. He has an excellent urine output and his renal function appears quite stable compared to yesterday. He is tolerating weaning of his vent down to PSV with 40% oxygen. He is off the pressors currently, though his blood pressure remained somewhat soft. Plan at this point, I would plan on continuing his antibiotics and the Zosyn is certainly an appropriate choice at this time. Dr. Causey is planning on initiating a total parenteral nutrition. The ostomy appears viable and hopefully within the next few days we will start to see some output from this. [facility]
[2017-03-28] MEDS: MORPHINE 2 MG/ML 1ML SYRINGE IV PRN ×3 (14:02→22:33)
[2017-03-28] MEDS ORDERED: VECURONIUM BROMIDE 10 MG VIAL As Ordered ONE ×2 (16:58→17:01)
[2017-03-28] MEDS ORDERED: LIDOCAINE 1% MDV 20ML VIAL As Ordered ONE (17:06)
--- NOTE | 2017-03-28 17:25 | REP ---
CT chest without contrast: History: Pneumothorax. Comparison study 03/24/2017. Findings: Endotracheal tube is seen in good position. A nasogastric tube terminates in the body of the stomach. A left subclavian line terminates in the superior vena cava. A left chest tube is seen coursing through the parenchyma of the left upper lobe and terminating posteriorly adjacent to the left upper lobe posterior pleural surface. There is some parenchymal opacity along the inferior aspect of the chest tube tract in the left upper lobe. There is a left-sided hydropneumothorax. There are multiple peripheral subpleural bullae in the left upper lobe anteriorly as well as posteriorly. There are air bronchograms in the atelectatic left lower lobe. A small amount of left pleural fluid is noted. There is a small right pleural effusion as well. This is a little larger than that seen on the left. It is a new. No right-sided pneumothorax is seen. There is moderate subcutaneous emphysema in the extrathoracic soft tissues along the left chest anteriorly. Impression: Left chest tube demonstrates an intraparenchymal course through the left upper lobe. There are anteriorly peripheral subpleural air filled bullae. There is a small left-sided hydropneumothorax. There is lobar atelectasis in the left lower lobe. A small right pleural effusion has developed. There are multiple right-sided rib fractures again noted. Signed by Rodolfo Chester MD 03/28/2017 06:39 P
[2017-03-28] MEDS ORDERED: VECURONIUM BROMIDE 10 MG VIAL IV ONE (17:45)
[2017-03-28] MEDS ORDERED: LIDOCAINE 2% MDV 20 ML VIAL SC ONE (17:45)
[2017-03-28] MEDS ORDERED: MULTIVITAMIN -ADULT INJECTION 10 ML, CR/CU/SE/MN/ZN INJ 1 ML in AMINO AC/ELECTROLYTE/DE... IV SCH (18:00)
[2017-03-28] MEDS ORDERED: FAT EMULSION IV 20% 500 ML IV SCH (18:00)
--- NOTE | 2017-03-28 18:12 | REP ---
Portable chest x-ray: Single view. History: Chest tube placement verification. Findings: A new pleural drainage catheter has been passed on the left. Its position is similar to the previous chest tube. There is a small sliver of pneumothorax in the left apex. A decreased amount of extrathoracic soft tissue gas is seen. Endotracheal and nasogastric tubes remain in place. There is some pleural angle blunting on the left. Impression: New pleural drainage catheter in a similar position at the left apex. Small left apical pneumothorax. Extrathoracic soft tissue emphysema somewhat improved from this morning's film. Signed by Rodolfo Chester MD 03/28/2017 06:41 P
[2017-03-28] MEDS ORDERED: LIDOCAINE 1% MDV 20ML VIAL SC ONE (18:15)
--- NOTE | 2017-03-28 21:57 | RO ---
DATE OF PROCEDURE: 03/28/2017 PREPROCEDURE DIAGNOSIS: Persistent pneumothorax, subcutaneous emphysema. POSTPROCEDURE DIAGNOSIS: Persistent pneumothorax, subcutaneous emphysema. PROCEDURE: SURGEON: Dr. 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 He was then taken to surgery where he underwent an abdominal bowel procedure. Today, he has increased subcutaneous emphysema. I, therefore, sent the patient down to CT scanning and found that the previously placed chest tube was intraparenchymal. It is over the third rib. There is no space between the second and first ribs where I would usually place an anterior tube. I, therefore, again went over the third rib but this time used a percutaneous introducer and angled it sharply up into the chest. DESCRIPTION OF PROCEDURE: With the patient paralyzed with vecuronium and sedated with Diprivan and on full controlled ventilation, the patient was prepped and draped in the usual sterile fashion. After carefully palpating the chest, I chose the third intercostal space more medial to where the chest tube was originally placed. The chest was infiltrated with lidocaine. A long probing needle was then placed at a very acute angle into the second intercostal until I just got air. I stopped at that point in time as there is very little space between it and the lung parenchyma secondary to the patient's prior empyema in 2005. A wire was placed, and the tract was gingerly dilated. A percutaneous tube was then placed and connected to the Pleur-evac. There was a continuous air leak in the Pleur-evac, which was different from the prior placed chest tube. That chest tube was removed and the catheter securely sutured to the chest wall. Chest x-ray shows the lung fully expanded to the chest wall and it looks as though the catheter is in good position anteriorly in the chest. We will monitor him closely for subcutaneous emphysema.
[2017-03-29] VITALS (21 sets, daily range): BP systolic 88–207; BP diastolic 40–82; O2SAT 95
[2017-03-29] MEDS: HYDROCORTISONE 100 MG/2 ML VIAL (J1720) IV SCH ×2 (00:04→06:04)
[2017-03-29] MEDS: IPRATROPIUM 0.5MG/ALBUTEROL 2.5MG INH SOL UD 3ML (DUONEB)(J7620) NEB SCH ×6 (00:33→20:00)
[2017-03-29] MEDS: MORPHINE 2 MG/ML 1ML SYRINGE IV PRN ×7 (01:06→21:47)
[2017-03-29] MEDS: PIPERACILLIN/TAZOBACTAM SOD 3.375 GM in D5W MINI-BAG PLUS 50 ML IV SCH ×4 (01:13→19:19)
[2017-03-29] MEDS: PROPOFOL 1,000 MG in APPROPRIATE DILUENT 1 EA IV SCH ×3 (01:46→08:55)
[2017-03-29 05:58] LABS: IONIZED CALCIUM 4.1 MG/DL (4.5-5.3)
[2017-03-29] MEDS: HumaLOG INSULIN (NovoLOG) PER UNIT SC SCH ×5 (06:00→23:41)
[2017-03-29] MEDS: HEPARIN SOD (PORCINE) 5000 UNITS/ML VIAL SC SCH ×3 (06:04→21:25)
[2017-03-29 06:17] LABS: ADD MANUAL DIFFER YES; MEAN CORPUSCULAR HEMOGLOBIN 32.4 pg (27.0-33.0); MEAN CORPUSCULAR HGB CONC 34.8 g/dl (32.0-36.5); MEAN CORPUSCULAR VOLUME 93.2 fl (80.0-96.0); PLATELET COUNT, AUTOMATED 176 k/mm3 (150-450); RED CELL DISTRIBUTION WIDTH 13.3 % (11.5-14.5); WHITE BLOOD COUNT 16.6 K/mm3 (4.0-10.0)
[2017-03-29 06:30] LABS: ALBUMIN 1.7 GM/DL (3.2-5.2); ALBUMIN/GLOBULIN RATIO 0.65 (1.00-1.93); BILIRUBIN,TOTAL 0.5 MG/DL (0.2-1.0); CALCIUM LEVEL 6.7 MG/DL (8.8-10.2); CREATININE FOR GFR 2.06 MG/DL (0.70-1.30); GLOMERULAR FILTRATION RATE 34.1 (>42); MAGNESIUM LEVEL 1.8 MG/DL (1.8-2.4); POTASSIUM SERUM 4.1 MEQ/L (3.5-5.1); TOTAL PROTEIN 4.3 GM/DL (6.4-8.2)
[2017-03-29 07:41] LABS: NUCLEATED RED BLOOD CELL 2 % (0-0)
[2017-03-29 07:46] LABS: BANDS 2 % (< 11)
[2017-03-29] MEDS: CHLORHEXIDINE GLUCONATE 0.12 % 15ML UDC (PERIDEX ORAL RINSE) MT SCH (09:00)
[2017-03-29] MEDS: PANTOPRAZOLE 40MG INJ (PROTONIX) (C9113) IV SCH (09:00)
--- NOTE | 2017-03-29 09:33 | REP ---
PORTABLE CHEST: AP portable view of the chest is performed and compared to a prior study of 03/28/2017. There is a catheter overlying the left upper hemithorax representing a pleural drainage catheter. This may be kinked with a change in the configuration at the distal end. There may be kink approximately 6 cm proximal to the distal tip. I do not see a pneumothorax. Pleural and parenchymal opacities on the left are stable. There is infiltrates/atelectasis in the right base, which is stable. There is an endotracheal tube which is unchanged in position as well as a left central venous catheter and nasogastric tube, both of which appear in good position. IMPRESSION: Left pleural drainage catheter may be kinked approximately 6 cm proximal to its distal tip. I do not see a pneumothorax. The study is otherwise essentially stable. Signed by Yong Villa MD 03/29/2017 04:49 P
[2017-03-29 10:05] LABS: ABG HCO3 17.2 MEQ/L (22.0-26.0); ABG PARTIAL PRESSURE CO2 30.2 mmHg (35.0-45.0); ABG PARTIAL PRESSURE O2 102.3 mmHg (75.0-100.0); ABG STANDARD HCO3 18.7 MEQ/L (22.0-26.0); ABG TOTAL CO2 18.2 MEQ/L (23.0-31.0); ABG pH (ARTERIAL) 7.374 UNITS (7.350-7.450)
[2017-03-29] MEDS ORDERED: FUROSEMIDE 20 MG/2 ML VIAL (J1940) IV ONE (12:45)
--- NOTE | 2017-03-29 13:48 | CCN ---
DATE: 03/29/2017 Mr. Ansari remains critically ill with acute respiratory failure requiring mechanical ventilation. Over the past 24 hours, he has been able to be weaned off vasopressors with them being discontinued around 2:30 yesterday afternoon. He has minimal secretions and a good cough. He remains with good urine output. . He is on total parenteral nutrition (TPN). He had his chest tube replaced yesterday afternoon. This morning on a sedation holiday, he was following commands and indicated that he had no discomfort and felt he was getting enough air. He indicated he thought he would be able to "breath on his own". OBJECTIVE: GENERAL: Mr. Higgins is lying in bed in no acute distress. He is synchronous with the ventilator. VITAL SIGNS: Temperature 99 with a T-max of 99.1, respiratory rate 15, blood pressure 128/60 with an MAP of 82 by noninvasive and 153/61 by arterial line. SpO2 97% on FiO2 of 0.4. HEENT: Anicteric, PERRLA. Nares: Patent bilaterally. Nasogastric (NG) tube in place. Oropharynx: Moist mucosa. Endotracheal (ET) tube in place. NECK: Supple without apparent jugular venous distention though difficult to exam. Trachea is midline. LYMPHS: Without cervical or supraclavicular lymphadenopathy. LUNGS: Symmetric excursion, good air entry, diminished breath sounds at the bases bilaterally, no wheeze or rhonchi. Mildly prolonged expiratory phase. No accessory muscle use or tractions. CHEST: Decreased subcutaneous air. Chest tube: no air leak. CARDIOVASCULAR: Regular rate and rhythm with normal S1, S2, no murmur, rub or gallop appreciated. ABDOMEN: Rare bowel sounds, soft, dressing clean and dry, colostomy viable. EXTREMITIES: "Puffy" appearance, trace to 1+ pedal edema bilaterally, palpable pedal pulses, without clubbing or cyanosis. LABORATORY DATA: CBC from this morning showed a hemoglobin of 10.3, hematocrit 29.5, platelet count 176,000, white blood cell count 16,600 with a differential of 94% neutrophils, 2% bands, 2% lymphocytes. Chemistry showed a sodium 136, potassium 4.1, chloride 105, bicarbonate 19, anion gap 12, BUN 41, creatinine 2.06, glucose 223, calcium 6.7, ionized calcium 4.1, phosphorus 4.1, phosphorus 5.0, magnesium 1.8, total bilirubin 0.5, AST 66, ALT 58, alkaline phosphatase 60 , LDH 349, CK 173, total protein 4.3, albumin 1.7. Blood culture with Gram negative rods from 03/27/2017, culture pending. I reviewed his chest x-ray as well as the report from earlier today. That x-ray showed normal appearing cardiac silhouette, pulmonary vascular shadow. ET tube is in good position. There is blunting of the left costophrenic angle, there is a left-sided chest tube that has a couple of bends in it and question whether it may be kinked. No consolidated regions. IMPRESSION: 1. Acute respiratory failure, postoperatively needing mechanical ventilation. 2. Severe sepsis with shock, resolving. Now off vasopressors. 3. Postoperative day #2 status post colonic resection from the transverse colon to the cecum with the creation of colostomy. 4. Acute kidney injury likely secondary to hypovolemia, slow improvement. Good urine output. 5. Diabetes mellitus, sliding scale insulin. 6. Chronic obstructive pulmonary disease (COPD) moderately severe, on bronchodilators. 7. Chronic prednisone usage, receiving stress steroids. 8. Iatrogenic pneumothorax with chest tube in place, per thoracic surgery. 9. Infectious disease, on Zosyn. 10. Deep venous thrombosis prophylaxis and stress ulcer prophylaxis in place. 11. Nutrition: On TPN. RECOMMENDATION: 1. We will assess Mr. Higgins for extubation. 2. Continue TPN. 3. If he is extubated we will start his outpatient pulmonary regimen. 4. I do not feel he needs stress dose corticosteroids any longer and will change him over to IV equivalent of 10 mg of prednisone daily. 5. Continue Zosyn. 6. Continue sliding scale insulin. ADDENDUM: Mr. Higgins was placed on a weaning trial consisting of a pressure support of 5 and a PEEP of 5. His rapid shallow breathing index was approximately 50 predicting success. As he has COPD, an arterial blood gas was drawn after 30 minutes on this trial and was 7.37/30/102 with a measured saturation of 97% and a base excess of -7. He was successfully extubated. Critical care time: 35 minutes not including procedure time. [facility]
[2017-03-29] MEDS: ADVAIR HFA 115/21MCG INHALER INH SCH ×2 (14:16→19:47)
--- NOTE | 2017-03-29 16:32 | IPN ---
DATE: 03/29/2017 The patient is now postoperative day number two from his exploratory laparotomy and resection of his distal transverse, descending and sigmoid colon for infarction. He has done extremely well over the last 24 hours. He was extubated at about 10:30 this morning after being off pressors for approximately 24 hours. He is alert and speaking with the nurses. His chest tube was changed yesterday evening by Dr. Rosales. It appeared that the first tube had actually penetrated the lung and he had some residual pneumothorax and some extrathoracic air in the soft tissues. Patient is asking to have his nasogastric tube removed. He appears largely oriented, although he made several statements that made me think he might be a little bit confused. Vital signs: His pulse most recently is approximately 110 with a respiratory rate of 21. His blood pressure by arterial line is 168/63 with a pulse oximetry of 95% on three liters of oxygen by nasal cannula. Intake and output from yesterday showed 3 liters in with approximately 2 liters out. His colostomy had no significant output and the nasogastric (NG) tube, there is only 185 milliliters recorded. Overnight, he has had 50 mL of NG output and there is only 7 mL recorded from his chest tube. He does not appear to have a chest tube leak of air at this time. The patient is alert and responsive. He is able to answer questions. He does not appear to be having significant discomfort at this time. The nasogastric tube remains in place. He has an arterial line in his left radial artery. He has a triple lumen in his left chest as well as a left chest tube. He still has a single peripheral IV, I believe on the right. Heart examination shows irregular mild tachycardia. Breath sounds are present bilaterally, though somewhat diminished on the left. The abdomen is full. His incision is clean and the ostomy is edematous but pink. I do not hear significant bowel sounds at this time. LABORATORY STUDIES: Today show a white count of 17,000 with a hemoglobin of 10, hematocrit of 30, and a platelet count of 176,000. His differential count shows 94% neutrophils with 2 bands, which is in distinction from yesterday's differential where he had 69 neutrophils and 20 bands. His blood gas this morning showed a pH of 7.37 with a CO2 of 30 and an O2 of 102 and that was prior to extubation. His chemistry profile shows a sodium of 136, potassium 4.1, chloride 105, CO2 of 19, BUN of 41, creatinine 2.0, and a glucose of 223. His calcium is 6.7 with a phosphorus of 5.0, magnesium 1.8. His liver function tests are not significantly abnormal. His total protein is 4.3 and his albumin is 1.7. The total protein is actually slightly increased from 03/27/2017. Chest x-ray from this morning shows chest tube on the left looking kinked, though it is impossible to tell if this might be occluded. I do not see a significant pneumothorax on the left and the amount of chest wall air seems to have diminished significantly. His triple lumen remains in place in the right superior vena cava. His NG tube definitely extends beneath the diaphragm. IMPRESSION: Overall, the patient's improvement has been excellent. He is now off the ventilator and off pressors. His renal function remains stable with good urine output. He has not yet had a return of bowel function. This is not unexpected and his ostomy looks healthy. PLAN: The patient's Zosyn will be continued for antibiotic coverage. The nasogastric tube will be continued for now. Once he has return of some bowel function as evidenced by some flatus through his ostomy, the nasogastric (NG) tube can be removed. The patient can be out of bed to a chair or to ambulate with assist if able, though he may be at this time too weak to allow ambulation. Physical therapy is certainly appropriate at this time. I have written an order to remove his arterial line as his blood pressure has been remaining acceptable without pressors. Wound care will be started with daily dressing changes. Management of the chest tube remains with Dr. Rosales. Other medical issues will be addressed by the hospitalist. LALO
[2017-03-29] MEDS: ACETAMINOPHEN TAB 650MG DOSE (2X325MG) PO PRN (16:47)
[2017-03-29] MEDS ORDERED: AMINO AC/ELECTROLYTE/DEX/CALC 2,000 ML IV SCH (18:00)
[2017-03-29] MEDS ORDERED: FAT EMULSION IV 20% 500 ML IV SCH (18:00)
[2017-03-29] MEDS: busPIRone 5 MG TAB PO SCH (22:18)
[2017-03-29] MEDS: rOPINIRole 1MG TAB PO SCH (22:41)
[2017-03-30] VITALS (16 sets, daily range): BP systolic 129–165; BP diastolic 63–79
[2017-03-30] MEDS: PIPERACILLIN/TAZOBACTAM SOD 3.375 GM in D5W MINI-BAG PLUS 50 ML IV SCH ×4 (01:07→20:32)
[2017-03-30] MEDS: ACETAMINOPHEN TAB 650MG DOSE (2X325MG) PO PRN (01:33)
[2017-03-30 05:06] LABS: IONIZED CALCIUM 4.4 MG/DL (4.5-5.3)
[2017-03-30 05:09] LABS: BASO # 0.1 K/mm3 (0.0-0.2); BASO % 0.4 % (0.0-1.0); EOS # 0.3 K/mm3 (0.0-0.50); EOS % 2.1 % (0.0-3.0); LARGE UNSTAINED CELL # 0.1 K/mm3 (0.0-0.4); LARGE UNSTAINED CELL % 0.6 % (0.0-4.0); LYMPH # 0.8 K/mm3 (1.5-4.5); LYMPH % 5.4 % (24.0-44.0); MEAN CORPUSCULAR HEMOGLOBIN 31.5 pg (27.0-33.0); MEAN CORPUSCULAR HGB CONC 34.9 g/dl (32.0-36.5); MEAN CORPUSCULAR VOLUME 90.4 fl (80.0-96.0); MONO # 0.4 K/mm3 (0.0-0.8); MONO % 2.4 % (0.0-5.0); NEUTROPHILS # 13.9 K/mm3 (1.8-7.7); NEUTROPHILS % 89.1 % (36.0-66.0); PLATELET COUNT, AUTOMATED 189 k/mm3 (150-450); RED CELL DISTRIBUTION WIDTH 13.4 % (11.5-14.5); WHITE BLOOD COUNT 15.6 K/mm3 (4.0-10.0)
[2017-03-30 05:37] LABS: ALBUMIN 1.9 GM/DL (3.2-5.2); ALBUMIN/GLOBULIN RATIO 0.73 (1.00-1.93); BILIRUBIN,TOTAL 0.5 MG/DL (0.2-1.0); CALCIUM LEVEL 7.3 MG/DL (8.8-10.2); CREATININE FOR GFR 1.7 MG/DL (0.70-1.30); GLOMERULAR FILTRATION RATE 42.5 (>42); MAGNESIUM LEVEL 1.5 MG/DL (1.8-2.4); PHOSPHORUS LEVEL 3.8 MG/DL (2.5-4.9); POTASSIUM SERUM 3.3 MEQ/L (3.5-5.1); TOTAL PROTEIN 4.5 GM/DL (6.4-8.2)
[2017-03-30] MEDS: HumaLOG INSULIN (NovoLOG) PER UNIT SC SCH ×4 (05:55→23:39)
[2017-03-30] MEDS: HEPARIN SOD (PORCINE) 5000 UNITS/ML VIAL SC SCH ×3 (06:00→22:22)
[2017-03-30] MEDS: MORPHINE 2 MG/ML 1ML SYRINGE IV PRN ×3 (06:56→12:32)
[2017-03-30] MEDS: IPRATROPIUM 0.5MG/ALBUTEROL 2.5MG INH SOL UD 3ML (DUONEB)(J7620) NEB SCH ×4 (07:38→20:00)
[2017-03-30] MEDS: ADVAIR HFA 115/21MCG INHALER INH SCH ×2 (07:38→19:43)
[2017-03-30] MEDS: busPIRone 5 MG TAB PO SCH ×2 (08:07→20:32)
[2017-03-30] MEDS: methylPREDNISolone INJ 40 MG/1 ML VIAL (J2920) IV SCH (08:07)
[2017-03-30] MEDS: PANTOPRAZOLE 40MG INJ (PROTONIX) (C9113) IV SCH (08:07)
[2017-03-30] MEDS ORDERED: KCL 20MEQ IN 100ML SWI (KRUN) 20 MEQ in APPROPRIATE DILUENT 1 EA IV ONE ×4 (08:45→17:30)
--- NOTE | 2017-03-30 09:03 | REP ---
Portable chest x-ray: Single view. History: Intubated patient. Findings: Endotracheal tube appears to have been removed. The NG tube persists in the left upper quadrant. Left pleural drainage catheter is again seen in place. There is a decreased amount of extrathoracic soft tissue gas. A tiny left-sided pneumothorax is again seen unchanged. Pleural opacity is noted in the right base and probably left base unchanged. Signed by Rodolfo Chester MD 03/30/2017 01:40 P
[2017-03-30] MEDS: MAG SULF 1GM/100ML (MAG RUN) 1 GM in APPROPRIATE DILUENT 1 EA IV SCH ×2 (09:14→11:04)
--- NOTE | 2017-03-30 09:47 | IPN ---
DATE: 03/30/2017 Mr. Higgins was quite anxious last night. He was uncomfortable because of the nasogastric (NG) tube in his nose and he had trouble sleeping. He is very apologetic this morning because he thinks he was mean to the nursing staff last night. Temperature is 98.6, pulse 107, respiratory rate 20, blood pressure is 129/67, 95% on room air. Intake and output notable for a negative fluid balance of -1888. No stool output has been noted. He is awake, appropriately interactive. Appears anxious and tearful. NG tube in his right naris. Mucous membranes are tacky. Neck thick, supple. There is a left subclavian central line noted. Breathing is symmetrical, diminished. Heart is regular rate and rhythm, distant sounding. No significant arrhythmia on monitor. Abdomen notable for hypoactive bowel sounds. Ostomy in the left lower quadrant. There was gross edema in the lower extremities and flanks. White cell count 15.6, hemoglobin 9.7 and platelets of 189. Creatinine is 1.7, potassium 3.3, magnesium 1.5. My assessment is as follows: This is a 72-year-old status post bowel resection. Plan is as follows: 1. Patient's acute respiratory failure has resolved. 2. Patient had severe sepsis present on admission, which has resolved. 3. Patient is postoperative day #3 from colonic resection. He has a NG tube in place. Still is not passing flatus from the ostomy site. Likely has an ileus. 4. Patient has acute kidney injury secondary to hypovolemia, which is resolving. This is associated with gross edema. At this point, I would be tempted to pursue auto-diuresis and replete electrolytes as needed, including magnesium and potassium today. 5. Patient has diabetes mellitus. On sliding scale insulin. 6. Patient has history of chronic obstructive pulmonary disease (COPD). Is a patient of Dr. Garg's. 7. Patient is on stress-dose steroids related to his chronic steroid usage. 8. Patient had iatrogenic pneumothorax. Continues to have a chest tube in place. Being followed by Dr. Rosales. 9. Patient has deep venous thrombosis (DVT) prophylaxis. 10. Nutrition is via total parenteral nutrition (TPN). 11. Patient has postoperative respiratory failure. It may have been related to his preoperative difficulties.
[2017-03-30] MEDS: OXAZEPAM 10 MG CAP PO PRN ×2 (11:04→20:32)
[2017-03-30 15:05] LABS: CALCIUM LEVEL 7.8 MG/DL (8.8-10.2); CREATININE FOR GFR 1.49 MG/DL (0.70-1.30); GLOMERULAR FILTRATION RATE 49.5 (>42); POTASSIUM SERUM 3.2 MEQ/L (3.5-5.1)
[2017-03-30] MEDS: KCL 10MEQ IN 100ML SWI (KRUN) 100 ML IV SCH ×2 (17:51→18:43)
[2017-03-30] MEDS ORDERED: MULTIVITAMIN -ADULT INJECTION 10 ML, CR/CU/SE/MN/ZN INJ 1 ML, POTASSIUM CHLORIDE INJ 83... IV SCH ×4 (18:00)
[2017-03-30] MEDS ORDERED: MULTIVITAMIN -ADULT INJECTION 10 ML, CR/CU/SE/MN/ZN INJ 1 ML, POTASSIUM CHLORIDE INJ 55... IV SCH ×4 (18:00)
[2017-03-30] MEDS ORDERED: FAT EMULSION IV 20% 500 ML IV SCH (18:00)
[2017-03-30] MEDS: rOPINIRole 1MG TAB PO SCH (20:32)
--- NOTE | 2017-03-30 21:58 | IPN ---
DATE: 03/30/2017 Mr. Higgins is alert and appears quite oriented. The nurse reports that he has been somewhat agitated at times. He is complaining to me primarily that he needs to get some sleep. He is quite anxious, but overall he seems to be doing quite well. He denies any pain. He has not yet had any ostomy function. Vital signs : T-max is 100.6 at midnight and has been afebrile since. Pulse has ranged from 107-114 today. Blood pressure is good and his O2 sat on 2 liters of nasal cannula oxygen is in the mid 90s. I and O yesterday was 2870 in with 4758 out and today he has also mobilized significant fluid with a urine output of greater than 4 liters. His NG output for the day has been 1500, though he has been taking some ice chips. MEDICATIONS: - Of note, the patient remains on total parenteral nutrition and is on Zosyn 3.375 grams IV every 6 hours. - He is also receiving some methylprednisolone 8 mg IV daily and other supportive meds. - He was ordered some Serax today on an as-needed basis for anxiety. The patient is alert and cooperative. He expresses his appreciation to the doctors and nurses for taking care of him. Heart exam reveals a regular tachycardia. The lungs show good bilateral breath sounds. The abdomen shows that his midline incision is clean and dry. He has bowel sounds present, though he does have some tinkly bowel sounds noted. The abdomen, however is soft and he denies any tenderness on palpation. The ostomy looks a little less swollen today than it did yesterday and remains pink. Davila catheter remains in place. LABS: Laboratory studies today show a white count of 15.6 with a hemoglobin of 10, hematocrit of 28 and a platelet count of 189,000. Differential shows 89% neutrophils and his bands have resolved. His chemistry shows a sodium of 141, potassium 3.2, chloride 105, CO2 of 27, BUN of 36, creatinine 1.49 and glucose of 240. This was at 1406 in the afternoon. His renal function continues to improve though his potassium is a little depressed at this time. Chest x-ray this morning shows that the left chest tube is in place. The radiologist reported a decreased amount of extrathoracic soft tissue gas with a tiny left-sided pneumothorax which seemed unchanged. I note that his chest tube has been put to water seal by Dr. Rosales. The patient continues to make excellent progress. He is mobilizing third space fluid very well and does not seem to have required any diuretics for this. He is tolerating his total parenteral nutrition, though his blood sugars are up somewhat. He is alert and seems oriented. His abdomen is soft and he has bowel sounds present and I would hope to see some evidence of ostomy output within the next 12-24 hours. He is not showing any signs of sepsis at this time. PLAN: I will continue his nasogastric tube for today. His total parenteral nutrition was continued with some additional potassium added to the recipe for today. Labs will be followed. With resumption of bowel function as evidenced by gas per ostomy we can remove his NG tube and start him on some sips of liquids. LALO
[2017-03-30 23:22] LABS: CALCIUM LEVEL 7.9 MG/DL (8.8-10.2); CREATININE FOR GFR 1.31 MG/DL (0.70-1.30); GLOMERULAR FILTRATION RATE 57.4 (>42); MAGNESIUM LEVEL 1.6 MG/DL (1.8-2.4); POTASSIUM SERUM 3.5 MEQ/L (3.5-5.1)
[2017-03-31] VITALS (7 sets, daily range): BP systolic 153–168; BP diastolic 66–82
[2017-03-31] MEDS: MAG SULF 1GM/100ML (MAG RUN) 1 GM in APPROPRIATE DILUENT 1 EA IV SCH ×3 (01:15)
[2017-03-31] MEDS: OXAZEPAM 10 MG CAP PO PRN (01:16)
[2017-03-31] MEDS: AMITRIPTYLINE 25 MG TAB PO SCH ×2 (01:59→20:01)
[2017-03-31] MEDS: PIPERACILLIN/TAZOBACTAM SOD 3.375 GM in D5W MINI-BAG PLUS 50 ML IV SCH ×4 (02:22→19:30)
[2017-03-31 05:40] LABS: BASO % 0.2 % (0.0-1.0); EOS # 0.1 K/mm3 (0.0-0.50); EOS % 0.7 % (0.0-3.0); LARGE UNSTAINED CELL # 0.2 K/mm3 (0.0-0.4); LARGE UNSTAINED CELL % 1.4 % (0.0-4.0); LYMPH # 0.6 K/mm3 (1.5-4.5); LYMPH % 4.9 % (24.0-44.0); MEAN CORPUSCULAR HEMOGLOBIN 31.7 pg (27.0-33.0); MEAN CORPUSCULAR HGB CONC 34.6 g/dl (32.0-36.5); MEAN CORPUSCULAR VOLUME 91.5 fl (80.0-96.0); MONO # 0.5 K/mm3 (0.0-0.8); NEUTROPHILS # 10.8 K/mm3 (1.8-7.7); NEUTROPHILS % 88.8 % (36.0-66.0); PLATELET COUNT, AUTOMATED 224 k/mm3 (150-450); RED CELL DISTRIBUTION WIDTH 13.6 % (11.5-14.5); WHITE BLOOD COUNT 12.2 K/mm3 (4.0-10.0)
[2017-03-31 06:00] LABS: IONIZED CALCIUM 4.6 MG/DL (4.5-5.3)
[2017-03-31] MEDS: HEPARIN SOD (PORCINE) 5000 UNITS/ML VIAL SC SCH ×3 (06:07→20:01)
[2017-03-31 06:13] LABS: ALBUMIN 2.1 GM/DL (3.2-5.2); ALBUMIN/GLOBULIN RATIO 0.75 (1.00-1.93); ALKALINE PHOSPHATASE 108 U/L (45-117); ALT/SGPT 45 U/L (12-78); ANION GAP 11 MEQ/L (8-16); AST/SGOT 50 U/L (15-37); BILIRUBIN,TOTAL 0.6 MG/DL (0.2-1.0); BLOOD UREA NITROGEN 33 MG/DL (7-18); CALCIUM LEVEL 7.9 MG/DL (8.8-10.2); CARBON DIOXIDE LEVEL 28 MEQ/L (21-32); CHLORIDE LEVEL 104 MEQ/L (98-107); CHOLESTEROL LEVEL 125 MG/DL (< 200); CREATININE FOR GFR 1.16 MG/DL (0.70-1.30); GLOMERULAR FILTRATION RATE > 60.0 (>42); GLUCOSE, FASTING 204 MG/DL (83-110); PHOSPHORUS LEVEL 3.2 MG/DL (2.5-4.9); POTASSIUM SERUM 3.5 MEQ/L (3.5-5.1); SODIUM LEVEL 143 MEQ/L (136-145); TOTAL PROTEIN 4.9 GM/DL (6.4-8.2); TRIGLYCERIDES LEVEL 248 MG/DL (<150)
[2017-03-31] MEDS: HumaLOG INSULIN (NovoLOG) PER UNIT SC SCH ×3 (06:17→23:24)
[2017-03-31] MEDS ORDERED: HALOPERIDOL 5 MG/ML VIAL (J1630) IV PRN (07:30)
[2017-03-31] MEDS: IPRATROPIUM 0.5MG/ALBUTEROL 2.5MG INH SOL UD 3ML (DUONEB)(J7620) NEB SCH ×4 (07:39→20:00)
[2017-03-31] MEDS: ADVAIR HFA 115/21MCG INHALER INH SCH ×2 (07:39→20:03)
[2017-03-31] MEDS: PANTOPRAZOLE 40MG INJ (PROTONIX) (C9113) IV SCH (08:02)
[2017-03-31] MEDS: methylPREDNISolone INJ 40 MG/1 ML VIAL (J2920) IV SCH (08:02)
--- NOTE | 2017-03-31 08:20 | REP ---
PORTABLE CHEST X-RAY: Single view. HISTORY: Intubated patient. COMPARISON STUDY: March 30, 2017. FINDINGS: Left pleural drainage catheter remains in place. There is a pleural-type line in the lower chest laterally and another medially, which may reflect pneumothorax outlining a partially collapsed lung in the left upper lobe. There is decrease in the amount of extrathoracic soft tissue emphysema on the left. Some improved aeration is seen in the left lower lobe today. The right lung remains clear. A left subclavian line terminates in the expected location of the superior vena cava. NG tube enters left upper quadrant of the abdomen. IMPRESSION: Left chest tube in place. Possible pneumothorax anteroinferiorly. Signed by Rodolfo Chester MD 03/31/2017 02:33 P
[2017-03-31] MEDS ORDERED: ONDANSETRON 4MG/2ML VIAL (J2405) IV PRN (08:45)
--- NOTE | 2017-03-31 09:49 | IPN ---
DATE: 03/31/2017 Mr. Higgins did not sleep again last night. He says he is exceedingly anxious. He is worried about he gets out of the hospital. He really just wants to go home. He thinks he will sleep better at home. He has no complaints of pain, chest pain, or shortness of breath. He is not particularly hungry. Temperature 99.3, pulse 104, respiratory rate 24, blood pressure 155/74 and 94% on 2 liters. Ins and outs notable for a negative fluid balance of -4321. He has minimal chest tube drainage. He had gastric drainage of 1500 yesterday and 850 since midnight. He has been passing some small amount of flatus through his ostomy site. He is awake. He does appear anxious. Mucous membranes are moist. NG tube is in place. Left subclavian is in place. Left chest tube in place. Breathing is symmetrical with some upper airway sounds noted. Heart is regular rate and rhythm. Abdomen soft with hypoactive bowel sounds, but more bowel sounds than yesterday. White cell count 12.2, hemoglobin 10 and platelets 224. BUN 33, creatinine 1.16. ASSESSMENT: This is a 72-year-old status post bowel resection. PLAN: 1. Patient's acute respiratory failure has resolved. 2. Patient had severe sepsis present on admission, has resolved. 3. Patient is postoperative day #4 from colonic resection. NG tube remains in place. 4. Fluid, electrolyte and nutrition. Per the surgical service. He is passing flatus. He may have a resolving ileus. 5. Patient has acute kidney injury which is resolving. He continues to have gross edema and is auto-diuresing and repleting electrolytes as necessary. He did receive additional potassium and magnesium yesterday. Will replete again as needed. 6. Patient has diabetes mellitus. On sliding scale. 7. Patient has history of chronic obstructive pulmonary disease (COPD) and is a patient of Dr. Garg's. 8. Patient had been on stress-dose steroids related to his chronic steroid use and is back to his home dosage. 9. Patient had iatrogenic pneumothorax. Dr. Rosales is following his chest tube which can likely be discontinued soon. 10. Patient has appropriate deep venous thrombosis (DVT) prophylaxis. 11. Patient's postoperative respiratory failure may have been related to his preoperative difficulties.
[2017-03-31] MEDS: busPIRone 5 MG TAB PO SCH ×2 (09:54→20:01)
[2017-03-31] MEDS: MORPHINE 2 MG/ML 1ML SYRINGE IV PRN ×2 (12:51→22:40)
[2017-03-31] MEDS ORDERED: FAT EMULSION IV 20% 500 ML IV SCH (18:00)
[2017-03-31] MEDS ORDERED: POTASSIUM CHLORIDE INJ 55.6 MEQ in AMINO AC/ELECTROLYTE/DEX/CALC 2,000 ML IV SCH (18:00)
[2017-03-31] MEDS: rOPINIRole 1MG TAB PO SCH (20:01)
[2017-03-31] MEDS: LORazepam 2 MG/ML VIAL (J2060) IV PRN (20:10)
[2017-04-01] VITALS: BP 160/75
[2017-04-01] MEDS: PIPERACILLIN/TAZOBACTAM SOD 3.375 GM in D5W MINI-BAG PLUS 50 ML IV SCH ×4 (01:24→20:00)
[2017-04-01] MEDS: MORPHINE 2 MG/ML 1ML SYRINGE IV PRN ×2 (02:05→21:01)
[2017-04-01 04:00] VITALS: BP 162/70
[2017-04-01] MEDS: LORazepam 2 MG/ML VIAL (J2060) IV PRN ×2 (04:28→18:51)
[2017-04-01] MEDS: HEPARIN SOD (PORCINE) 5000 UNITS/ML VIAL SC SCH ×3 (05:06→21:04)
[2017-04-01 05:38] LABS: IONIZED CALCIUM 4.5 MG/DL (4.5-5.3)
[2017-04-01 05:39] LABS: BASO % 0.4 % (0.0-1.0); EOS # 0.2 K/mm3 (0.0-0.50); EOS % 1.6 % (0.0-3.0); LARGE UNSTAINED CELL # 0.4 K/mm3 (0.0-0.4); LARGE UNSTAINED CELL % 3.1 % (0.0-4.0); LYMPH # 1.5 K/mm3 (1.5-4.5); MEAN CORPUSCULAR HEMOGLOBIN 30.7 pg (27.0-33.0); MEAN CORPUSCULAR HGB CONC 33.4 g/dl (32.0-36.5); MEAN CORPUSCULAR VOLUME 91.9 fl (80.0-96.0); MONO # 0.8 K/mm3 (0.0-0.8); MONO % 7.1 % (0.0-5.0); NEUTROPHILS # 9.2 K/mm3 (1.8-7.7); NEUTROPHILS % 77.8 % (36.0-66.0); PLATELET COUNT, AUTOMATED 237 k/mm3 (150-450); RED CELL DISTRIBUTION WIDTH 14.3 % (11.5-14.5); WHITE BLOOD COUNT 11.8 K/mm3 (4.0-10.0)
[2017-04-01] MEDS: HumaLOG INSULIN (NovoLOG) PER UNIT SC SCH ×3 (05:41→18:34)
[2017-04-01 06:06] LABS: ALBUMIN 2.2 GM/DL (3.2-5.2); ALBUMIN/GLOBULIN RATIO 0.81 (1.00-1.93); ALKALINE PHOSPHATASE 149 U/L (45-117); ALT/SGPT 58 U/L (12-78); ANION GAP 7 MEQ/L (8-16); AST/SGOT 71 U/L (15-37); BILIRUBIN,TOTAL 0.9 MG/DL (0.2-1.0); BLOOD UREA NITROGEN 32 MG/DL (7-18); CARBON DIOXIDE LEVEL 32 MEQ/L (21-32); CHLORIDE LEVEL 104 MEQ/L (98-107); CHOLESTEROL LEVEL 143 MG/DL (< 200); CREATININE FOR GFR 1.06 MG/DL (0.70-1.30); GLOMERULAR FILTRATION RATE > 60.0 (>42); GLUCOSE, FASTING 191 MG/DL (83-110); MAGNESIUM LEVEL 1.2 MG/DL (1.8-2.4); PHOSPHORUS LEVEL 3.2 MG/DL (2.5-4.9); POTASSIUM SERUM 3.4 MEQ/L (3.5-5.1); SODIUM LEVEL 143 MEQ/L (136-145); TOTAL PROTEIN 4.9 GM/DL (6.4-8.2); TRIGLYCERIDES LEVEL 177 MG/DL (<150)
[2017-04-01] MEDS: ADVAIR HFA 115/21MCG INHALER INH SCH ×2 (07:47→19:50)
[2017-04-01] MEDS: IPRATROPIUM 0.5MG/ALBUTEROL 2.5MG INH SOL UD 3ML (DUONEB)(J7620) NEB SCH ×4 (07:47→20:00)
[2017-04-01 08:00] VITALS: BP 147/72
[2017-04-01] MEDS: methylPREDNISolone INJ 40 MG/1 ML VIAL (J2920) IV SCH (08:14)
[2017-04-01] MEDS: PANTOPRAZOLE 40MG INJ (PROTONIX) (C9113) IV SCH (08:14)
[2017-04-01] MEDS: busPIRone 5 MG TAB PO SCH ×2 (08:14→21:00)
[2017-04-01] MEDS ORDERED: KCL 20MEQ IN 100ML SWI (KRUN) 20 MEQ in APPROPRIATE DILUENT 1 EA IV ONE ×2 (10:00)
[2017-04-01] MEDS: MAG SULF 1GM/100ML (MAG RUN) 1 GM in APPROPRIATE DILUENT 1 EA IV SCH ×3 (10:06→13:28)
[2017-04-01 12:00] VITALS: BP 168/79
--- NOTE | 2017-04-01 15:20 | REP ---
PORTABLE CHEST X-RAY: SINGLE VIEW. HISTORY: Intubated patient. COMPARISON STUDY: 03/31/2017 FINDINGS: EKG monitoring electrodes are again seen. A left chest tube has been removed since yesterday's study. There is a small quantity of left apical pleural air. Some residual extrathoracic subcutaneous emphysema is seen, unchanged. There is discoid atelectasis in the left base. Hazy opacity persists over the left lower hemithorax and at the site of the previous chest tube in the left upper lobe, unchanged. Right lung remains clear. Signed by Rodolfo Chester MD 04/01/2017 03:26 P
[2017-04-01 16:00] VITALS: BP 169/96
[2017-04-01 16:05] LABS: ANION GAP 11 MEQ/L (8-16); BLOOD UREA NITROGEN 32 MG/DL (7-18); CALCIUM LEVEL 7.9 MG/DL (8.8-10.2); CARBON DIOXIDE LEVEL 28 MEQ/L (21-32); CHLORIDE LEVEL 103 MEQ/L (98-107); CREATININE FOR GFR 1.05 MG/DL (0.70-1.30); GLOMERULAR FILTRATION RATE > 60.0 (>42); GLUCOSE, FASTING 255 MG/DL (83-110); SODIUM LEVEL 142 MEQ/L (136-145)
[2017-04-01] MEDS ORDERED: AMINO AC/ELECTROLYTE/DEX/CALC 2,000 ML IV SCH (18:00)
[2017-04-01] MEDS ORDERED: FAT EMULSION IV 20% 500 ML IV SCH (18:00)
--- NOTE | 2017-04-01 20:33 | IPN ---
DATE: 04/01/2017 The patient is now 5 days postop from exploratory laparotomy and resection of the distal transverse, descending, and sigmoid colon with creation of an end transverse colostomy. The patient has been making excellent progress. He continues to progress nicely. He is alert and seems oriented today. He has had onset of output from his colostomy with some stool in the bag as well as some gas today. He denies any nausea or vomiting. Vital signs show him to be afebrile. His pulse ranges between 109 and 125 today. His blood pressure has been up a little bit into the 160 systolic and his oxygen saturations are excellent on 2 liters of nasal cannula oxygen. Intake and output yesterday showed 1740 in with 3995 out. Urine output remains excellent and his weight has fallen to 85 kg from a peak recorded of 92.8 kg on 03/28/2017. PHYSICAL EXAMINATION: Patient is alert and appears comfortable. He is pleasant. Heart: Exam shows irregular tachycardia. His chest tube has been removed, and he has a small wound on the left side just below the dressing for his central line. His ostomy is viable, though it still has some edema but there is some stool within the bag. His midline incision appears to be healing well. He has active bowel sounds. There is a small spot with evidence of some bleeding in the right lower quadrant low down, which looks kind of like a puncture wound but it is unclear what the origin of this was. His lower extremities have decreased edema present. Labs today show a white count of 12 with a hemoglobin of 9, hematocrit of 28 and differential showing 78% neutrophils. Chemistry profile shows that his sodium was 142, potassium 4.0, chloride 103, CO2 of 28, BUN of 32, creatinine 1.05 and a glucose of 255 at 1512 hours this afternoon. IMPRESSION: He has excellent progress postop. He has had return of bowel function with stool from the ostomy. He is having no nausea or vomiting. He continues to mobilize third space fluid spontaneously. PLAN: The patient will be started on some full liquids today. If he tolerates these well, I would anticipate advancing his diet to regular solid food and stopping his total parenteral nutrition on 04/02/2017. He can go to the regular medical-surgical floor. He will need some education in management of his ostomy appliance. Hopefully the patient will be ready to go home at some time by perhaps the middle of this next week. MTDD
[2017-04-01] MEDS: AMITRIPTYLINE 25 MG TAB PO SCH (21:00)
[2017-04-01] MEDS: rOPINIRole 1MG TAB PO SCH (21:00)
[2017-04-01 22:00] VITALS: BP 156/77
[2017-04-02] MEDS: HumaLOG INSULIN (NovoLOG) PER UNIT SC SCH ×5 (00:05→21:00)
[2017-04-02] MEDS: PIPERACILLIN/TAZOBACTAM SOD 3.375 GM in D5W MINI-BAG PLUS 50 ML IV SCH ×4 (02:29→20:13)
[2017-04-02] MEDS: LORazepam 2 MG/ML VIAL (J2060) IV PRN ×2 (03:14→13:44)
[2017-04-02 06:00] VITALS: BP 163/84
[2017-04-02 06:19] LABS: BASO # 0.1 K/mm3 (0.0-0.2); BASO % 0.7 % (0.0-1.0); EOS # 0.4 K/mm3 (0.0-0.50); LARGE UNSTAINED CELL # 0.8 K/mm3 (0.0-0.4); LARGE UNSTAINED CELL % 5.7 % (0.0-4.0); LYMPH # 1.7 K/mm3 (1.5-4.5); LYMPH % 12.3 % (24.0-44.0); MEAN CORPUSCULAR HEMOGLOBIN 30.8 pg (27.0-33.0); MEAN CORPUSCULAR HGB CONC 33.3 g/dl (32.0-36.5); MEAN CORPUSCULAR VOLUME 92.3 fl (80.0-96.0); MONO # 0.8 K/mm3 (0.0-0.8); MONO % 5.7 % (0.0-5.0); NEUTROPHILS # 9.9 K/mm3 (1.8-7.7); NEUTROPHILS % 72.6 % (36.0-66.0); PLATELET COUNT, AUTOMATED 253 k/mm3 (150-450); RED CELL DISTRIBUTION WIDTH 14.3 % (11.5-14.5); WHITE BLOOD COUNT 13.6 K/mm3 (4.0-10.0)
[2017-04-02 06:36] LABS: IONIZED CALCIUM 4.4 MG/DL (4.5-5.3)
[2017-04-02 06:56] LABS: ALBUMIN 2.3 GM/DL (3.2-5.2); ALBUMIN/GLOBULIN RATIO 0.85 (1.00-1.93); ALKALINE PHOSPHATASE 164 U/L (45-117); ALT/SGPT 64 U/L (12-78); ANION GAP 10 MEQ/L (8-16); AST/SGOT 72 U/L (15-37); BILIRUBIN,TOTAL 1.1 MG/DL (0.2-1.0); BLOOD UREA NITROGEN 30 MG/DL (7-18); CALCIUM LEVEL 8.3 MG/DL (8.8-10.2); CARBON DIOXIDE LEVEL 29 MEQ/L (21-32); CHLORIDE LEVEL 105 MEQ/L (98-107); CHOLESTEROL LEVEL 161 MG/DL (< 200); GLOMERULAR FILTRATION RATE > 60.0 (>42); GLUCOSE, FASTING 150 MG/DL (83-110); MAGNESIUM LEVEL 1.4 MG/DL (1.8-2.4); PHOSPHORUS LEVEL 4.3 MG/DL (2.5-4.9); POTASSIUM SERUM 3.6 MEQ/L (3.5-5.1); SODIUM LEVEL 144 MEQ/L (136-145); TRIGLYCERIDES LEVEL 162 MG/DL (<150)
[2017-04-02] MEDS: HEPARIN SOD (PORCINE) 5000 UNITS/ML VIAL SC SCH ×3 (07:15→20:13)
[2017-04-02] MEDS: IPRATROPIUM 0.5MG/ALBUTEROL 2.5MG INH SOL UD 3ML (DUONEB)(J7620) NEB SCH ×3 (07:27→15:07)
[2017-04-02] MEDS: ADVAIR HFA 115/21MCG INHALER INH SCH ×2 (07:28→21:00)
[2017-04-02] MEDS ORDERED: CALCIUM GLUCONATE 1,000 MG in D5W MINI-BAG PLUS 100 ML IV ONE (09:00)
[2017-04-02] MEDS: PANTOPRAZOLE 40MG INJ (PROTONIX) (C9113) IV SCH (09:46)
[2017-04-02] MEDS: busPIRone 5 MG TAB PO SCH ×2 (09:46→20:14)
[2017-04-02] MEDS: methylPREDNISolone INJ 40 MG/1 ML VIAL (J2920) IV SCH (09:46)
--- NOTE | 2017-04-02 12:38 | REP ---
Clinical: Pneumothorax. Technique: PA and lateral. Comparison: 04/01/2017. Findings: Mediastinum and cardiac silhouette are within normal limits and stable. Left subclavian catheter with tip in the SVC. Diffuse chronic appearing pleuroparenchymal changes are appreciated, and subtle superimposed acute process cannot be excluded. No obvious pneumothorax. Previously noted subcutaneous emphysema along the left chest wall has improved. Impression: 1. Chronic/stable pleuroparenchymal changes; cannot exclude superimposed process. 2. No obvious pneumothorax. 3. Decreased left-sided subcutaneous emphysema. Signed by Samuel Hurley MD 04/02/2017 12:29 P
[2017-04-02] MEDS: MAG SULF 1GM/100ML (MAG RUN) 1 GM in APPROPRIATE DILUENT 1 EA IV SCH ×2 (13:25→14:35)
[2017-04-02 14:00] VITALS: BP 195/95
[2017-04-02 14:30] VITALS: BP 143/65
[2017-04-02] MEDS: MORPHINE 2 MG/ML 1ML SYRINGE IV PRN (14:58)
--- NOTE | 2017-04-02 14:58 | IPN ---
DATE: 04/02/2017 Mr. Higgins has no complaints of pain this morning. No chest pain. No shortness of breath. He has tolerated a diet. He is making stool. The staff did arrange for a sitter for him last night. Temperature is 99.6, pulse 121, respiratory rate 20, blood pressure 163/84, and 95% on 2 liters. Body mass index is 30.5. He is awake, appropriately interactive and answering questions. Mucous membranes are moist. Neck is supple, thick. He has a left subclavian central line still in place. No surrounding erythema. No drainage. Breathing is symmetrical, diminished. I:E ratio is 1:3. Heart is distant sounding. Normal S1, S2. He is tachycardiac. Radial pulses 2+. Capillary refill is less than 2 seconds. White cell count 13.6, hemoglobin 9.7, and platelets of 253. Sodium 144, potassium 3.6, chloride 105, carbon dioxide 29, BUN 30, creatinine 0.9, glucose 150, magnesium 1.4, total bilirubin 1.1, alkaline phosphatase 164, LDH 454. No recent cultures. Chest x-ray done today shows no obvious acute processes. ASSESSMENT: This is a 72-year-old status post bowel resection. PLAN: 1. The patient's acute respiratory failure is resolved. 2. The patient had severe sepsis present on admission which has resolved. 3. The patient is status post colonic resection and is having ostomy output and is tolerating some diet. 4. Fluids, electrolytes, nutrition. Being managed by Dr. Enciso. Dr. Enciso and I did discuss this case in person. 5. The patient has resolved acute kidney injury. 6. The patient has diabetes mellitus. 7. The patient has chronic obstructive pulmonary disease (COPD) and has been followed by Dr. Garg as an outpatient. 8. The patient had previously received stress dose steroids, he is now on his chronic steroid dose. 9. The patient is noted to be tachycardic with unknown etiology. He does not seem to be uncomfortable. He has no complaints of pain, chest pain or shortness of breath. At this point, will check blood cultures empirically. 10. The patient has a number of electrolyte abnormalities, including hypomagnesemia and hypocalcemia which are repleted. 11. The patient's postoperative respiratory failure may have been related to his preoperative difficulties. LALO
[2017-04-02] MEDS: rOPINIRole 1MG TAB PO SCH (20:14)
[2017-04-02] MEDS: AMITRIPTYLINE 25 MG TAB PO SCH (20:14)
[2017-04-02] MEDS ORDERED: HumaLOG INSULIN (NovoLOG) PER UNIT SC SCH (21:00)
[2017-04-02 22:00] VITALS: BP 164/87
[2017-04-02] MEDS ORDERED: GLUCAGON FOR INJ 1 MG VIAL (J1610) SC PRN (22:15)
[2017-04-02] MEDS ORDERED: DEXTROSE 50% 50 ML SYRINGE IV PRN (22:15)
[2017-04-02] MEDS ORDERED: GLUCOSE 4 GM CHEW TABLET PO PRN (22:15)
[2017-04-02] MEDS ORDERED: SODIUM CHLORIDE 0.9% INJ 10 ML SYR IV PRN (22:45)
[2017-04-03] MEDS: IPRATROPIUM 0.5MG/ALBUTEROL 2.5MG INH SOL UD 3ML (DUONEB)(J7620) NEB SCH ×5 (00:04→20:00)
[2017-04-03] MEDS: PIPERACILLIN/TAZOBACTAM SOD 3.375 GM in D5W MINI-BAG PLUS 50 ML IV SCH ×4 (01:53→21:16)
[2017-04-03] MEDS: HEPARIN SOD (PORCINE) 5000 UNITS/ML VIAL SC SCH ×3 (05:15→21:18)
[2017-04-03] MEDS: SODIUM CHLORIDE 0.9% INJ 10 ML SYR IV SCH ×3 (05:16→21:18)
[2017-04-03 06:00] VITALS: BP 162/88
[2017-04-03] MEDS ORDERED: HumaLOG INSULIN (NovoLOG) PER UNIT SC SCH ×2 (07:30)
--- NOTE | 2017-04-03 09:03 | REP ---
Clinical: Leukocytosis. Comparison: Multiple examinations dating through 03/26/2017. Findings: Left subclavian catheter with tip in the SVC. The mediastinum and cardiac silhouette are normal. The lung valdez demonstrate diffuse chronic interstitial changes with superimposed left upper lobe opacity suggesting infiltrate/atelectasis. Trace left basilar atelectasis cannot be excluded. Small amount of subcutaneous emphysema involving the left chest wall noted which has improved compared to recent prior examinations. No obvious pneumothorax identified. Skeletal structures demonstrate stable osteopenia and degenerative changes. Impression: 1. Subtle left upper lobe opacity/infiltrate and trace left basilar atelectasis suggested. 2. Small amount of residual subcutaneous emphysema overlies the upper left chest wall. 3. No obvious pneumothorax. Signed by Samuel Hurley MD 04/03/2017 08:54 A
[2017-04-03] MEDS: ADVAIR HFA 115/21MCG INHALER INH SCH ×2 (09:14→20:10)
[2017-04-03] MEDS: methylPREDNISolone INJ 40 MG/1 ML VIAL (J2920) IV SCH (10:10)
[2017-04-03] MEDS: busPIRone 5 MG TAB PO SCH ×2 (10:10→21:17)
[2017-04-03] MEDS: PANTOPRAZOLE 40MG INJ (PROTONIX) (C9113) IV SCH (10:10)
[2017-04-03 11:56] LABS: BASO # 0.1 K/mm3 (0.0-0.2); BASO % 0.5 % (0.0-1.0); EOS # 0.7 K/mm3 (0.0-0.50); EOS % 4.8 % (0.0-3.0); LARGE UNSTAINED CELL # 0.4 K/mm3 (0.0-0.4); LARGE UNSTAINED CELL % 2.5 % (0.0-4.0); LYMPH % 7.3 % (24.0-44.0); MEAN CORPUSCULAR HGB CONC 33.1 g/dl (32.0-36.5); MEAN CORPUSCULAR VOLUME 93.7 fl (80.0-96.0); MONO # 0.5 K/mm3 (0.0-0.8); MONO % 3.3 % (0.0-5.0); NEUTROPHILS # 11.5 K/mm3 (1.8-7.7); NEUTROPHILS % 81.7 % (36.0-66.0); PLATELET COUNT, AUTOMATED 200 k/mm3 (150-450); RED CELL DISTRIBUTION WIDTH 14.5 % (11.5-14.5); WHITE BLOOD COUNT 14.1 K/mm3 (4.0-10.0)
[2017-04-03 12:13] LABS: ANION GAP 9 MEQ/L (8-16); BLOOD UREA NITROGEN 26 MG/DL (7-18); CALCIUM LEVEL 7.3 MG/DL (8.8-10.2); CARBON DIOXIDE LEVEL 27 MEQ/L (21-32); CHLORIDE LEVEL 101 MEQ/L (98-107); CREATININE FOR GFR 0.98 MG/DL (0.70-1.30); GLOMERULAR FILTRATION RATE > 60.0 (>42); GLUCOSE, FASTING 213 MG/DL (83-110); POTASSIUM SERUM 3.6 MEQ/L (3.5-5.1); SODIUM LEVEL 137 MEQ/L (136-145)
--- NOTE | 2017-04-03 12:51 | IPN ---
DATE: 04/03/2017 Mr. Higgins has no complaints of pain this morning. No chest pain. No shortness of breath. He is looking forward to his coffee with cream and a small amount of sugar. No palpitations. Temperature is 99, pulse 119, respiratory rate 20, blood pressure 162/88, 95% on room air. Intake and output notable for a positive fluid balance of 20. He has output in his ostomy bag which is green. He is awake, answering questions appropriately. He has no complaints. He is somewhat anxious. He did sleep last night apparently. Mucous membranes are moist. Neck is supple, thick. He has a left subclavian central venous catheter. Breathing is symmetrical. Some upper airway sounds are noted. No wheezes, rales, or rhonchi. Heart is distant sounding, tachycardiac, is in a regular rate and rhythm. Abdomen is soft, nontender. There is ostomy output and hyperactive bowel sounds. LABORATORY DATA: White cell count 14.1, hemoglobin 9.4, and platelets of 200. BUN 26, creatinine 0.98. ASSESSMENT: This is a 72-year-old status post bowel resection. PLAN: 1. The patient's acute respiratory failure has resolved. 2. The patient had severe sepsis present on admission which has resolved. 3. The patient has ongoing tachycardia. The cause of which remains unclear. It does not seem to be pain related. He does not seem to be dehydrated. He has no focal complaint to guide further treatment. He continues on antibiotics related to his bowel resection. He has a relatively benign abdominal examination. We will check a urinalysis (UA) and culture. Blood cultures are pending. No change in antibiotics for now. 4. Fluids, electrolytes, nutrition (FEN). Being managed by the surgical team. He is currently off total parenteral nutrition (TPN). 5. The patient has resolved acute kidney injury. 6. The patient has diabetes mellitus. I have increased his sliding scale coverage at the upper levels. 7. The patient has chronic obstructive pulmonary disease (COPD) and is being followed by Dr. Garg. 8. The patient had previously received stress dose steroids, now on his chronic steroid dose in the IV form which can likely be switched to by mouth depending on his clinical course. 9. The patient is noted to have a number of electrolyte abnormalities. We will replete and replace as needed. 10. The patient's postoperative respiratory failure may have been related to his preoperative difficulties.
[2017-04-03] MEDS: HumaLOG INSULIN (NovoLOG) PER UNIT SC SCH ×3 (13:19→21:00)
[2017-04-03 14:00] VITALS: BP 169/80
[2017-04-03] MEDS: rOPINIRole 1MG TAB PO SCH ×2 (18:20→21:17)
[2017-04-03] MEDS: AMITRIPTYLINE 25 MG TAB PO SCH (21:16)
[2017-04-03 22:00] VITALS: BP 160/68
[2017-04-03] MEDS: ACETAMINOPHEN TAB 650MG DOSE (2X325MG) PO PRN (22:25)
[2017-04-04] MEDS: LORazepam 2 MG/ML VIAL (J2060) IV PRN ×3 (00:50→23:47)
[2017-04-04] MEDS: PIPERACILLIN/TAZOBACTAM SOD 3.375 GM in D5W MINI-BAG PLUS 50 ML IV SCH ×4 (00:56→19:23)
[2017-04-04] MEDS: ACETAMINOPHEN TAB 650MG DOSE (2X325MG) PO PRN (03:03)
[2017-04-04] MEDS: SODIUM CHLORIDE 0.9% INJ 10 ML SYR IV SCH ×3 (05:25→20:56)
[2017-04-04] MEDS: HEPARIN SOD (PORCINE) 5000 UNITS/ML VIAL SC SCH ×3 (05:25→20:54)
[2017-04-04 05:32] LABS: MEAN CORPUSCULAR HEMOGLOBIN 31.8 pg (27.0-33.0); MEAN CORPUSCULAR HGB CONC 34.6 g/dl (32.0-36.5); RED CELL DISTRIBUTION WIDTH 14.6 % (11.5-14.5); WHITE BLOOD COUNT 20.3 K/mm3 (4.0-10.0)
[2017-04-04 05:44] LABS: IONIZED CALCIUM 4.1 MG/DL (4.5-5.3)
[2017-04-04 06:00] VITALS: BP 155/81
[2017-04-04 06:12] LABS: ALBUMIN 2.4 GM/DL (3.2-5.2); ALBUMIN/GLOBULIN RATIO 0.77 (1.00-1.93); ALKALINE PHOSPHATASE 170 U/L (45-117); ALT/SGPT 42 U/L (12-78); ANION GAP 11 MEQ/L (8-16); AST/SGOT 30 U/L (15-37); BILIRUBIN,DIRECT 0.4 MG/DL (0.0-0.2); BILIRUBIN,TOTAL 1.2 MG/DL (0.2-1.0); BLOOD UREA NITROGEN 26 MG/DL (7-18); CALCIUM LEVEL 7.6 MG/DL (8.8-10.2); CARBON DIOXIDE LEVEL 25 MEQ/L (21-32); CHLORIDE LEVEL 96 MEQ/L (98-107); CREATININE FOR GFR 1.03 MG/DL (0.70-1.30); GLOMERULAR FILTRATION RATE > 60.0 (>42); GLUCOSE, FASTING 164 MG/DL (83-110); MAGNESIUM LEVEL 1.4 MG/DL (1.8-2.4); SODIUM LEVEL 132 MEQ/L (136-145); TOTAL PROTEIN 5.5 GM/DL (6.4-8.2)
[2017-04-04] MEDS: HumaLOG INSULIN (NovoLOG) PER UNIT SC SCH ×4 (07:30→21:00)
[2017-04-04] MEDS: IPRATROPIUM 0.5MG/ALBUTEROL 2.5MG INH SOL UD 3ML (DUONEB)(J7620) NEB SCH ×4 (07:36→18:31)
[2017-04-04] MEDS: ADVAIR HFA 115/21MCG INHALER INH SCH ×2 (07:36→18:31)
[2017-04-04] MEDS: busPIRone 5 MG TAB PO SCH ×2 (07:59→20:55)
[2017-04-04] MEDS: PANTOPRAZOLE 40MG INJ (PROTONIX) (C9113) IV SCH (07:59)
[2017-04-04] MEDS ORDERED: CALCIUM GLUCONATE 1,000 MG in D5W MINI-BAG PLUS 100 ML IV ONE (08:00)
[2017-04-04] MEDS: methylPREDNISolone INJ 125 MG/2 ML VIAL (J2930) IV SCH ×2 (08:42→20:55)
[2017-04-04] MEDS: MAG SULF 1GM/100ML (MAG RUN) 1 GM in APPROPRIATE DILUENT 1 EA IV SCH ×5 (08:42→15:17)
[2017-04-04] MEDS ORDERED: GASTROGRAFIN SOLUTION 30ML PO ONE (08:45)
[2017-04-04] MEDS ORDERED: GASTROGRAFIN SOLUTION 30ML (Q9963) PO ONE (09:15)
[2017-04-04] MEDS ORDERED: ISOVUE-370 76% 100ML VIAL (Q9967) As Ordered ONE (10:36)
--- NOTE | 2017-04-04 13:44 | IPN ---
DATE OF SERVICE: 04/04/2017 Mr. Higgins has been somewhat confused overnight. In fact, on my arrival this morning, he is bravo naked, totally uncovered in bed. He does recognize me from previous encounters. He has no complaints of pain, chest pain, shortness of breath. Temperature is 98.1, pulse 118, respiratory rate 22, blood pressure 155/81, 92% on room air. Intake and output (I and O) notable for a positive fluid balance of 560. One bowel movement noted. Awake, appropriately interactive, pleasantly conversant but easily distracted. Neck is thick. No obvious elevation in jugular venous pressure (JVP). Breathing is symmetrical. I-to-E ratio is 1:3, rested. No accessory muscle use. Heart is noted to be tachycardic. Radial pulses are 2+. Capillary refill is less than 2 second. Abdomen is notable for active bowel sounds. Soft to palpation. Nontender with green stool in his ostomy bag. White cell count 20.3, hemoglobin 9.1, platelets 207. BUN 26 and creatinine 1.03. Sodium is 132. Lactic acid this morning is 1.6. Ionized calcium is 4.1 and magnesium is 1.4. A urinalysis (UA) from yesterday shows 6 white cells and 79 red. Blood cultures and urine cultures are pending. CT of the abdomen and pelvis and CT of the chest are pending from this morning. My assessment is as follows: This is a 72-year-old status post bowel resection. 1. The patient's acute respiratory failure has resolved. 2. The patient had severe sepsis present on admission which has resolved. 3. The patient does have ongoing tachycardia. Now has developed relatively notable white cell count and perhaps some increased level of confusion, although he is a reasonable historian at this point. I am suspicious for underlying infectious etiology. As such, I ordered a CT of his abdomen and pelvis, as well as of the chest with contrast. Will add vancomycin to his antibiotic regimen. I did send repeat cultures this morning. Also, I have elected to increase his steroids, as the patient did receive higher doses of steroids in the form of stress-dosed steroids during his stay. 4. fluids, electrolytes, nutrition (FEN). The patient has hypocalcemia and hypomagnesemia, which are repleted. The patient is off total parenteral nutrition (TPN) and taking a diet. 5. The patient has resolved acute kidney injury. 6. The patient has diabetes mellitus. Sliding scale coverage was increased on 04/03/2017. 7. The patient has chronic obstructive pulmonary disease (COPD). Has been followed by Dr. Garg as an outpatient. 8. The patient's postoperative respiratory failure may have been related to his preoperative difficulties.
[2017-04-04 14:00] VITALS: BP 136/65
[2017-04-04 14:49] VITALS: BP 143/68
[2017-04-04] MEDS ORDERED: MAGNESIUM SULFATE 1 GM/100 ML D5W BAG (10MG/ML) (J3475) As Ordered ONE (15:15)
[2017-04-04] MEDS: VANCOMYCIN HCL 1,000 MG, VIAL MATE ADAPTER 1 EACH in D5W 250 ML IV SCH (16:23)
--- NOTE | 2017-04-04 16:55 | REP ---
Clinical: Abdominal pain. Leukocytosis. Technique: Axial contrast enhanced images from the lung bases to the pubic symphysis using oral and 100 ml Isovue 370 intravenous contrast material with coronal and sagittal re-formations. Comparison: 03/26/2017. Findings: Lung bases demonstrate small to moderate pleural effusions and passive atelectasis (right greater than left). Visualized portions of the heart and pericardium are normal. Acute nondisplaced right rib fractures at 7-10th ribs noted. The patient is status post left hemicolectomy and Caitlyn's pouch without evidence for bowel obstruction or acute enteric inflammatory process. There is a right iliacus hematoma which measures 14 x 9 x 6 cm and demonstrates adjacent right lower quadrant inflammatory stranding (images 73 - 109). Liver, spleen, pancreas, bilateral adrenal glands and kidneys are relatively normal. 3 cm left renal hypodensity may reflect complex cyst and should be correlated with ultrasound examination. Pelvis demonstrates a Davila catheter in bladder and age appropriate prostate gland. No ascites. No free air. No adenopathy. Atherosclerotic changes to the vasculature noted without aortic aneurysm or dissection. Evaluation of the osseous structures demonstrates an acute nondisplaced fracture involving the anterior margin of the acetabulum (axial images 117 - 126; coronal images 46 - 54) and nondisplaced fracture involving the right inferior pubic ramus (coronal images 61 - 66). Extensive degenerative changes noted throughout the visualized thoracolumbar spine and pelvis/hips noted along with significant compression deformities at L2 and L1 with the L1 fracture being of indeterminate age and L2 fracture being chronic and reported on 01/14/2016. Impression: 1. Moderate right iliac hematoma and adjacent right lower quadrant inflammatory stranding likely traumatic in nature. 2. Relatively acute fractures involving multiple right ribs, right acetabulum and right inferior pubic ramus. Compression deformities at L1 of indeterminate age and L2 which is chronic as compared to 01/14/2016. 3. Further chronic changes as described above. Signed by Samuel Hurley MD 04/04/2017 04:46 P
[2017-04-04] MEDS ORDERED: VANCOMYCIN HCL 500 MG in D5W MINI-BAG PLUS 100 ML IV ONE (17:00)
[2017-04-04] MEDS: AMITRIPTYLINE 25 MG TAB PO SCH (20:56)
[2017-04-04] MEDS: rOPINIRole 1MG TAB PO SCH (20:56)
[2017-04-04 22:00] VITALS: BP 169/81
[2017-04-05] MEDS: PIPERACILLIN/TAZOBACTAM SOD 3.375 GM in D5W MINI-BAG PLUS 50 ML IV SCH ×4 (02:38→19:58)
[2017-04-05] MEDS: VANCOMYCIN HCL 1,000 MG, VIAL MATE ADAPTER 1 EACH in D5W 250 ML IV SCH ×2 (03:59→17:06)
[2017-04-05] MEDS: HEPARIN SOD (PORCINE) 5000 UNITS/ML VIAL SC SCH (05:30)
[2017-04-05] MEDS: SODIUM CHLORIDE 0.9% INJ 10 ML SYR IV SCH ×3 (05:31→22:10)
[2017-04-05 05:56] LABS: MEAN CORPUSCULAR HEMOGLOBIN 31.1 pg (27.0-33.0); MEAN CORPUSCULAR HGB CONC 33.7 g/dl (32.0-36.5); MEAN CORPUSCULAR VOLUME 92.2 fl (80.0-96.0); WHITE BLOOD COUNT 16.1 K/mm3 (4.0-10.0)
[2017-04-05 06:00] VITALS: BP 166/82
[2017-04-05 06:32] LABS: ANION GAP 11 MEQ/L (8-16); BLOOD UREA NITROGEN 22 MG/DL (7-18); CALCIUM LEVEL 7.4 MG/DL (8.8-10.2); CARBON DIOXIDE LEVEL 25 MEQ/L (21-32); CHLORIDE LEVEL 100 MEQ/L (98-107); CREATININE FOR GFR 0.86 MG/DL (0.70-1.30); GLOMERULAR FILTRATION RATE > 60.0 (>42); GLUCOSE, FASTING 214 MG/DL (83-110); POTASSIUM SERUM 3.8 MEQ/L (3.5-5.1); SODIUM LEVEL 136 MEQ/L (136-145)
[2017-04-05] MEDS: IPRATROPIUM 0.5MG/ALBUTEROL 2.5MG INH SOL UD 3ML (DUONEB)(J7620) NEB SCH ×4 (07:42→18:46)
[2017-04-05] MEDS: ADVAIR HFA 115/21MCG INHALER INH SCH ×2 (07:42→19:36)
[2017-04-05 08:46] LABS: MAGNESIUM LEVEL 1.6 MG/DL (1.8-2.4)
[2017-04-05] MEDS: methylPREDNISolone INJ 125 MG/2 ML VIAL (J2930) IV SCH ×2 (09:18→22:09)
[2017-04-05] MEDS: busPIRone 5 MG TAB PO SCH ×2 (09:18→22:08)
[2017-04-05] MEDS: HumaLOG INSULIN (NovoLOG) PER UNIT SC SCH ×4 (09:18→23:01)
[2017-04-05] MEDS: PANTOPRAZOLE 40MG INJ (PROTONIX) (C9113) IV SCH (09:19)
[2017-04-05 11:40] LABS: ABG BASE EXCESS -2.1 (-2.0-2.0); ABG HCO3 20.9 MEQ/L (22.0-26.0); ABG PARTIAL PRESSURE CO2 28.9 mmHg (35.0-45.0); ABG STANDARD HCO3 22.7 MEQ/L (22.0-26.0); ABG TOTAL CO2 21.8 MEQ/L (23.0-31.0); ABG pH (ARTERIAL) 7.477 UNITS (7.350-7.450)
--- NOTE | 2017-04-05 13:06 | REP ---
Clinical: Trauma. Fracture. Technique: Five views of the pelvis. Findings: Age-related osteopenia and degenerative changes are appreciated. Correlation is made with recent CT dated 04/04/2017 and demonstrates a subtle nondisplaced fracture through the anterior portion of the right acetabulum as well as the right inferior pubic ramus. No other definite fracture or dislocation appreciated. Surrounding soft tissues are grossly unremarkable. Impression: Very subtle nondisplaced fractures involving the right acetabulum and right inferior pubic ramus. Signed by Samuel Hurley MD 04/05/2017 12:58 P
[2017-04-05] MEDS: MAG SULF 1GM/100ML (MAG RUN) 1 GM in APPROPRIATE DILUENT 1 EA IV SCH ×2 (13:17→13:22)
[2017-04-05 14:00] VITALS: BP 166/72
--- NOTE | 2017-04-05 18:20 | IPN ---
DATE: 04/05/2017 The patient is now located on [address] [place] [address]. He was sitting in a chair, having completed his dinner at the bedside when I entered. He is alert and seems oriented. He is not having any pain. He is currently receiving a transfusion of packed red blood cells. This was ordered by the resident apparently working on the hospitalist service. Vital signs show the patient to be afebrile. Pulse remains between 115 and 123. Blood pressure is fine and his room air oxygen saturations (O2 sats) are fine. Intake and output on 04/04/2017 showed an intake of 2400 orally with 2750 out. His weight has remained fairly stable at 86-87 kg over the last few days. The patient's exam shows the triple lumen in his left subclavian with a dressing in place. Sclerae are anicteric. His mucous membranes are moist. Heart exam shows a regular tachycardia. The lungs show some decreased breath sounds on the left in particular. The abdomen shows that his incision is healing nicely with rhett in place, and the colostomy remains slightly edematous but is pink and viable and functioning. Extremities do not show significant edema. Laboratory studies show a white count of 16,000 with a hemoglobin of 7, hematocrit of 22% this morning with a platelet count of 140,000. His chemistry profile this morning showed a BUN of 22, creatinine 0.86 and a glucose of 214. Magnesium was 1.6. A CT scan done on the 04/04/2017 shows a fracture at the anterior aspect of the acetabulum on the right with an iliac fossa hematoma as well as a fracture of the inferior pubic ramus. These were confirmed on pelvis x-rays today. I have not been informed that the patient had a fall in the hospital, and I suppose it is possible that these occurred with his fall at home prior to admission, though the iliac fossa hematoma was not present on the CT scan on 03/26/2017. IMPRESSION: Doing very well following his sepsis from intestinal ischemia. He is now 9 days postop. His renal function is normal. His blood sugars are still somewhat elevated. He is receiving a transfusion because of a hematocrit in the low 20s. His white count was elevated slightly yesterday though had come down today. I would like to stop the Zosyn as he has no evidence of any intra-abdominal infection, and I do not identify a definite source for infection currently. I will defer this to the hospitalist who had added vancomycin to his antibiotic regimen. I will be able to remove his surgical rhett in the near future and hopefully the patient will progress with physical therapy and be able to be discharged soon. LALO
[2017-04-05] MEDS: LORazepam 2 MG/ML VIAL (J2060) IV PRN ×2 (19:58→23:27)
--- NOTE | 2017-04-05 20:10 | CR ---
DATE OF CONSULTATION: 04/05/2017 CHIEF COMPLAINT: Right hip and pelvic pain. HISTORY OF PRESENT ILLNESS: Mr. Higgins is a 72-year-old male who was initially admitted on 03/26/2017 after multiple syncopal episodes and falls. The patient was found to have an ischemic bowel and went to the operating room the following day for an exploratory laparotomy and removal of infected bowel. He did require subsequent stay in the intensive care unit (ICU) postoperatively but now has been transferred to the floor. His CT scan of the his abdomen and pelvis revealed fractures of the right acetabulum and inferior pubic ramus. The patient states he does not quite remember his fall but overall does not feel like his hip or pelvis have been hurting terribly. There is some pain when he is transferring. Overall, he has not really attempted to walk at this point. He has mainly been stand- pivot transfer. He normally uses a walker while at the house and cane when outside. He finds the walker to be too fast for him outside. PAST MEDICAL HISTORY: 1. Hypertension. 2. Diabetes. 3. Hypothyroidism. 4. Dyslipidemia. 5. Gastroesophageal reflux disease (GERD). 6. Chronic obstructive pulmonary disease (COPD). 7. Osteoporosis. 8. Depression. 9. Coronary artery disease. 10. History of anemia. 11. History of pneumonia. 12. Colon polyps. 13. History of pleural effusion secondary to pneumonia. 14. Duodenal ulcer. 15. Hemorrhoids. 16. Diverticulosis. 17. History of gastritis. 18. Chronic cholecystitis. 19. Cholelithiasis. PAST SURGICAL HISTORY: 1. Cholecystectomy. 2. Colonoscopy. 3. Esophagogastroduodenoscopy (EGD). 4. Bilateral cataract removal. 5. Right eye surgery due to an injury. 6. Appendectomy. HOME MEDICATIONS: Albuterol, Fosamax, amitriptyline, amlodipine, aspirin, atenolol, buspirone, citalopram, vitamin B12, iron, folic acid, Lasix, lisinopril, metformin, omeprazole, prednisone, propylthiouracil, Requip, Advair, and simvastatin. ALLERGIES: QUINOLONES, AZITHROMYCIN, LEVOTHYROXINE, TOBRAMYCIN, IBUPROFEN, and AMBIEN. SOCIAL HISTORY: The patient lives with his partner. He has one stepchild and two step-grandchildren. He is retired. He is a former smoker. He denies alcohol and drug use. PHYSICAL EXAMINATION: GENERAL: Well appearing in no acute distress. MUSCULOSKELETAL: Patient is not having any significant pain in his right hip upon exam. I am able to internally and externally rotate the hip without any difficulty. He has no significant pain over palpation of the pelvis itself. The patient is neurovascularly intact with 5/5 strength in dorsiflexion and plantarflexion of his ankle and normal sensation to light touch in the superficial peroneal, deep peroneal, and tibial distributions. He has no numbness proximally and has intact knee flexion and extension. He has a palpable dorsalis pedis pulse. The skin is intact over the pelvis on the right side with some evidence of ecchymosis. IMAGING: CT scan and radiographs of the pelvis are reviewed. These show a nondisplaced right inferior pubic ramus fracture and a high right superior ramus fracture that does appear to extend into the anterior acetabulum. The fractures are very minimally displaced. IMPRESSION: Right inferior pubic ramus fracture and superior pubic ramus fracture that extends into the anterior acetabulum. PLAN: The patient will be touch-down weightbearing using a walker. He should work with physical therapy and be evaluated for possible rehabilitation placement. He should followup in 1 week's time for a repeat 5-view of the pelvis to ensure that the fracture is not displacing. This was discussed with the patient, and the weightbearing status was vocalized to the patient's nurse. They are in agreement with this plan. LALO
--- NOTE | 2017-04-05 21:42 | ECGEPIP ---
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
[2017-04-05 22:00] VITALS: BP 168/62
[2017-04-05] MEDS: AMITRIPTYLINE 25 MG TAB PO SCH (22:09)
[2017-04-05] MEDS: rOPINIRole 1MG TAB PO SCH (22:09)
[2017-04-06] MEDS: ACETAMINOPHEN TAB 650MG DOSE (2X325MG) PO PRN (00:03)
[2017-04-06] MEDS: PIPERACILLIN/TAZOBACTAM SOD 3.375 GM in D5W MINI-BAG PLUS 50 ML IV SCH ×2 (02:45→08:41)
[2017-04-06] MEDS: LORazepam 2 MG/ML VIAL (J2060) IV PRN (02:54)
[2017-04-06] MEDS: VANCOMYCIN HCL 1,000 MG, VIAL MATE ADAPTER 1 EACH in D5W 250 ML IV SCH ×2 (03:43→15:17)
[2017-04-06] MEDS ORDERED: HALOPERIDOL 5 MG/ML VIAL (J1630) As Ordered ONE (03:52)
[2017-04-06] MEDS ORDERED: HALOPERIDOL 5 MG/ML VIAL (J1630) IV ONE (04:00)
[2017-04-06] MEDS: SODIUM CHLORIDE 0.9% INJ 10 ML SYR IV SCH ×3 (05:04→21:46)
[2017-04-06 05:18] LABS: MEAN CORPUSCULAR HEMOGLOBIN 31.2 pg (27.0-33.0); MEAN CORPUSCULAR HGB CONC 34.4 g/dl (32.0-36.5); MEAN CORPUSCULAR VOLUME 90.9 fl (80.0-96.0); RED CELL DISTRIBUTION WIDTH 14.9 % (11.5-14.5); WHITE BLOOD COUNT 20.8 K/mm3 (4.0-10.0)
[2017-04-06] MEDS: HALOPERIDOL 5 MG/ML VIAL (J1630) IV PRN ×2 (05:34→21:45)
[2017-04-06 05:50] LABS: ANION GAP 14 MEQ/L (8-16); BLOOD UREA NITROGEN 24 MG/DL (7-18); CALCIUM LEVEL 7.9 MG/DL (8.8-10.2); CARBON DIOXIDE LEVEL 22 MEQ/L (21-32); CHLORIDE LEVEL 100 MEQ/L (98-107); GLOMERULAR FILTRATION RATE > 60.0 (>42); GLUCOSE, FASTING 132 MG/DL (83-110); POTASSIUM SERUM 4.1 MEQ/L (3.5-5.1); SODIUM LEVEL 136 MEQ/L (136-145)
[2017-04-06 06:00] VITALS: BP 168/72
[2017-04-06] MEDS: ADVAIR HFA 115/21MCG INHALER INH SCH ×2 (07:28→19:24)
[2017-04-06] MEDS: HumaLOG INSULIN (NovoLOG) PER UNIT SC SCH ×4 (08:40→21:00)
[2017-04-06] MEDS: busPIRone 5 MG TAB PO SCH ×2 (08:41→21:46)
[2017-04-06] MEDS: methylPREDNISolone INJ 40 MG/1 ML VIAL (J2920) IV SCH (08:41)
[2017-04-06] MEDS: FUROSEMIDE 20 MG TAB PO SCH (08:41)
[2017-04-06] MEDS: PANTOPRAZOLE 40MG INJ (PROTONIX) (C9113) IV SCH (08:41)
[2017-04-06] MEDS: ATENOLOL 50 MG TAB PO SCH (08:42)
[2017-04-06] MEDS: LISINOPRIL 10 MG TAB PO SCH (08:42)
[2017-04-06] MEDS: amLODIPine 5 MG TAB PO SCH (08:43)
--- NOTE | 2017-04-06 11:50 | IPNPDOC ---
Date Seen The patient was seen on 04/05/17. Progress Note SUBJECTIVE: Patient is a 72-year-old male with syncope and ischemic bowel status-post colon resection with colostomy. Patient is evaluated at bedside this morning. He is unable to complete full sentences and appears to be having difficulty breathing. Patient states that he does not feel like he is having difficulty breathing. Obtained an ABG which appears to show improvement and looks to be patient's baseline. He states that he would feel better if he could get out of bed and move around. Davila catheter is still in place, but the plan is to discontinue it today. Patient's midline abdominal incision is clean, dry, and intact. There are two bandaged areas on his right abdominal quadrant from where the drain was placed, but if there is not continued drainage then the bandages can be removed. There was a question about a possible abdominal infection and a CT was obtained. The imaginng revealed a right iliacus hematoma and rib, acetabulum, and pubic ramus fractures. Orthopedics was consulted and ordered a pelvic x-ray. Their recommendations to follow. There appeared to be some decrease in his hemoglobin on morning labs. Patient was consented and two units of PRBC were administered. Repeat H/H to follow. Heparin anticoagulation was discontinued. Patient was also empirically started on antibiotics. He appears to be tolerating that well. OBJECTIVE PHYSICAL EXAMINATION: VITAL SIGNS: Please see below. GENERAL: Elderly male, appears to have increased work of breathing, unable to complete full sentences HEENT: Atraumatic, normocephalic, PERRL, EOMI, oral mucosa appears pink and moist, nasal septum appears midline, nares are patent CARDIOVASCULAR: Regular rate and rhythm, normal S1 and S2, tachycardic, no murmur, rub, click RESPIRATORY: Right lower lobe crackles appreciated ABDOMINAL: Midline stapled incision, warm, dry, intact, without drainage; two 2x2 bandages noted on the right quadrant of the abdomen EXTREMITIES: Left-sided subclavian triple lumen catheter, peripheral pulses appreciated bilaterally, equal, symmetrical, +2/4; dark red ecchymosis noted on the right thoracolumbar region NEUROLOGICAL: CN II-XII grossly intact PSYCHOLOGICAL: Alert LABORATORY DATA: Please see below. MICROBIOLOGY: Please see below. IMAGING: CT of the abdomen and pelvis with IV and oral contrast IMPRESSION: 1. Moderate right iliac hematoma and adjacent right lower quadrant inflammatory stranding likely traumatic in nature. 2. Relatively acute fractures involving multiple right ribs, right acetabulum and right inferior pubic ramus. Compression deformities at L1 of indeterminate age and L2 which is chronic as compared to 01/14/2016. 3. Further chronic changes as described above. Pelvic x-ray IMPRESSION: Very subtle nondisplaced fractures involving the right acetabulum and right inferior pubic ramus. DVT prophylaxis ordered?: TEDs, sequentials, knee high compression ASSESSMENT AND PLAN: This is a 72-year-old male with syncope and ischemic bowel status-post bowel resection. PROBLEMS: 1. Sepsis status-post bowel resection with colostomy: Continue the valuable assistance of general surgery. Patient's diet advanced and appears to be tolerating. 2. Dyspnea: Obtained ABG. Appears to be at baseline. Ordered incentive spirometry. 3. Multiple rib, acetabulum, and pubic ramus fractures: Consulted orthopedics. Appreciate their assistance. Pelvic x-ray obtained. 4. COPD: Continue with current home medication regimen of Advair. Remains on SoluMedrol. 4. Hypertension: Medications held secondary to hypotension on admission. 4. Dyslipidemia: Continue current home medication regimen of Simvastatin. 5. Hyperthyroidism: Continue current home medication regimen of Propylthiourical. 6. GERD: Remains on protonix. 7. DM: Continue with SSI and hypoglycemic protocol. DISPOSITION: Orthopedic evaluation. PT evaluation. VS, I&O, 24H, Fishbone Vital Signs/I&O Vital Signs Date Time Temp Pulse Resp B/P (MAP) Pulse Ox O2 Delivery O2 Flow Rate FiO2 04/06/17 09:15 Room Air 04/06/17 08:42 131 178/79 04/06/17 06:00 98.4 18 96 04/02/17 22:06 2.0 I&O- Last 24 Hours up to 6 AM 04/06/17 06:00 Intake Total 1820 ml Output Total 700 ml Balance 1120 ml Laboratory Data 24H LABS Laboratory Tests 2 04/05/17 11:27: Blood Gas Bicarbonate Standard 22.7, Arterial Blood pH 7.477H, Arterial Blood Partial Pressure CO2 28.9L, Arterial Blood Partial Pressure O2 90.0, Arterial Blood Total CO2 21.8L, Arterial Blood HCO3 20.9L, Arterial Blood Base Excess - 2.1L, Arterial Blood Oxygen Saturation 96.9 04/05/17 11:44: Bedside Glucose (Misc Panel) 228H 04/05/17 17:12: Bedside Glucose (Misc Panel) 246H 04/05/17 20:52: Bedside Glucose (Misc Panel) 261H 04/06/17 05:05: Anion Gap 14, Glomerular Filtration Rate > 60.0, Blood Urea Nitrogen 24H, Creatinine 0.90, Sodium Level 136, Potassium Level 4.1, Chloride Level 100, Carbon Dioxide Level 22, Calcium Level 7.9L CBC/BMP Laboratory Tests 04/05/17 13:04 04/06/17 05:05 Red Blood Count 3.21 L, Mean Corpuscular Volume 90.9, Mean Corpuscular Hemoglobin 31.2, Mean Corpuscular Hemoglobin Concent 34.4, Red Cell Distribution Width 14.9 H, Calcium Level 7.9 L Microbiology Microbiology 04/04/17 Blood Culture - Preliminary, Resulted No Growth after 48 hours. All Specime... 04/04/17 Blood Culture - Preliminary, Resulted No Growth after 48 hours. All Specime... 04/02/17 Blood Culture - Preliminary, Resulted No Growth after 72 hours. All specime... 04/02/17 Blood Culture - Preliminary, Resulted No Growth after 72 hours. All specime... 03/27/17 Blood Culture - Final, Complete Escherichia Coli 03/27/17 Blood Culture - Final, Complete NO GROWTH AFTER 5 DAYS 03/27/17 Gram Stain - Final, Complete 03/27/17 Body Fluid Culture - Final, Complete 04/03/17 Urine Culture - Final, Complete 03/27/17 Anaerobic Culture - Final, Complete LEATHA DRIVER Apr 06, 2017 11:50
--- NOTE | 2017-04-06 13:14 | IPN ---
DATE: 04/06/2017 The patient is now 10 days postoperative from his exploratory lap and extensive bowel resection for ischemia. He has been doing generally well and making progress. He is up in a chair eating his regular breakfast this morning. He appears well. He does remember my name. I did not do a formal mental status exam. He denies any pain. He talks earnestly about wanting to go home. His vital signs show that he has been afebrile for the last 24 hours. His pulse remains elevated between 116 and 131 over the last 24 hours. His respiratory rate is recorded as 18-22. His blood pressure is recorded as between 166-178 systolic. His room air sats are fine. Intake and output yesterday shows 1800 of fluid orally with a urine output of 1650 and stool of 700. His weight this morning is recorded as 82.8 kg, which is 3.2 kg less than his recorded weight on 04/05/2017. As noted, the patient is alert. Examination shows that he has a regular tachycardia. He has diminished breath sounds on the left, particularly posteriorly where he has a known posterior pneumothorax. The abdomen is soft. His midline incision is closed with rhett and appears to be healing well. The colostomy is functioning and viable. His laboratory studies show a white count of 21,000 with a hemoglobin of 10 and a hematocrit of 29 following 2 units of packed cells yesterday. He is also noted to be on increased Solu-Medrol which may have had an impact on his white count. His chemistry profile shows normal electrolytes with a BUN of 24, creatinine 0.9 and a glucose of 132. He has not had any additional imaging studies today. IMPRESSION: 1. Colonic ischemia, now doing well status post colonic resection. 2. Acute renal failure secondary to sepsis, resolved. 3. Acute respiratory failure secondary to sepsis and chronic obstructive pulmonary disease, resolved. 4. Right pelvic fractures, which are stable. 5. Other medical illnesses as outlined by the hospitalist. PLAN: The patient appears to be making good progress. His ostomy is functioning and he is eating well. He certainly requires physical therapy to try to regain some strength. Once he is able to manage his colostomy or has adequate support to manage his colostomy and he is able to move safely, I would be happy to see him discharged home. I will plan on removing his surgical rhett in the next day or two. LALO
--- NOTE | 2017-04-06 13:21 | IPNPDOC ---
Date Seen The patient was seen on 04/06/17. Progress Note SUBJECTIVE: Patient is a 72-year-old Male with post op ischemic colitis and sepsis. After surgery it was noted on CT done 04/04/17 that pt had previous fracture of rib, inferior pubic ramus, and anterior aspect of the acetabulum on the right with an iliac fossa hematoma. Pt has a significant PMH of HTN, DM, COPD, RLS, Dyslipidemia, GERD, CAD, osteoporosis, Depression. Today , pt appears uncomfortable and agitated in bed and he states it is due to his RLS. Pt says he did not sleep well last night, only got about 1 1/2 hours of sleep due to his restlessness. Pt was given Haldol and Ativan overnight for agitation. Pt states he has improvement of his pain in his right lower back with pain only being present when he coughs and the pain has gone from a 10/10 to a 7/10. Pt complains of a productive cough with clear sputum and SOB when he is extremely restless. When transferred to a chair requiring assistance, pt appeared to be more comfortable and less agitated. Pt denies fever, chills, night sweats, RUSH, lightheadedness, sinus pain/congestion, trouble swallowing, chest pain/pressure, palpitations, abdominal pain, changes in urinary or bowel habits, numbness, and tingling. OBJECTIVE PHYSICAL EXAMINATION: VITAL SIGNS: Please see below. GENERAL: 72yo male uncomfortable and agitated/restless in bed. AXOx3. Pt is answering questions. Warm to touch. HEENT: AT/NC. PERRLA. No pain on palpation of sinuses, nasal bones, orbits. Posterior pharynx pink and moist with no signs of exudate. No lymphadenopathy noted. CARDIOVASCULAR: Without palpation of lifts, heaves, thrills. Regular tachycardia w/o MRG. RESPIRATORY: Nontender to palpation. Chest expansion equal bilaterally. Decreased breath sounds on left. Crackles in LLL with audible wheezing throughout lung valdez. ABDOMINAL: Midline incision healing appropriately with rhett in place. Colostomy is slightly edematous but is functioning. BS active w/o bruits of any arteries. Nontender to palpation w/o masses or guarding. Dark red ecchymosis noted again on right low back. EXTREMITIES: 1+ pitting edema lower legs posterior to knees bilaterally. No signs of discoloration. NEUROLOGICAL: Sensation intact bilaterally upper and lower extremities. LABORATORY DATA: Please see below. MICROBIOLOGY: Please see below. DVT prophylaxis ordered?: TEDs, sequentials, knee high compression ASSESSMENT AND PLAN: This is a 72-year-old Male with post op ischemic colitis and sepsis. Pt was also noted to have had previous fracture to rib, inferior pubic ramus, and anterior aspect of the acetabulum on the right with an iliac fossa hematoma. Pt experienced restlessness throughout the night due to RLS and BP was noted to be elevated. PROBLEMS: 1. Rib, right acetabulum, inferior pubic ramus fracture: Orthopedics consulted. Recommend "touch-down weightbearing using a walker. He should work with physical therapy and be evaluated for possible rehabilitation placement. He should followup in 1 week's time for a repeat 5-view of the pelvis to ensure that the fracture is not displacing." 2. 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 No signs of infection so Zosyn has been discontinued. [place] removal per general surgery. Colostomy is functioning. 3. Restless Leg Syndrome: Continue Requip and start Gabapentin. Ativan and Haldol PRN agitation. 4. Hypertension: Restart Lisinopril, Lasix, Norvasc. 5. Tachycardia: Restart Atenolol. 6. Leukocytosis: May be due to Solumedrol, reduce dose 40mg Daily. 7. COPD: Continue Advair, Proventil Neb. DC Duoneb. 8. DM: Continue Insulin sliding scale. 9. Depression: Continue Amitriptyline. 10. Right low back pain: Acetaminophen PRN. 11. Dyslipidemia: Continue current home medication of simvastatin. DISPOSITION: PT evaluation. VS, I&O, 24H, [facility] Vital Signs/I&O Vital Signs Date Time Temp Pulse Resp B/P (MAP) Pulse Ox O2 Delivery O2 Flow Rate FiO2 04/06/17 08:42 131 178/79 04/06/17 06:00 98.4 18 96 Room Air 04/02/17 22:06 2.0 I&O- Last 24 Hours up to 6 AM 04/06/17 05:59 Intake Total 1820 ml Output Total 1500 ml Balance 320 ml Laboratory Data 24H LABS Laboratory Tests 2 04/05/17 11:27: Blood Gas Bicarbonate Standard 22.7, Arterial Blood pH 7.477H, Arterial Blood Partial Pressure CO2 28.9L, Arterial Blood Partial Pressure O2 90.0, Arterial Blood Total CO2 21.8L, Arterial Blood HCO3 20.9L, Arterial Blood Base Excess - 2.1L, Arterial Blood Oxygen Saturation 96.9 04/05/17 11:44: Bedside Glucose (Misc Panel) 228H 04/05/17 17:12: Bedside Glucose (Misc Panel) 246H 04/05/17 20:52: Bedside Glucose (Misc Panel) 261H 04/06/17 05:05: Anion Gap 14, Glomerular Filtration Rate > 60.0, Blood Urea Nitrogen 24H, Creatinine 0.90, Sodium Level 136, Potassium Level 4.1, Chloride Level 100, Carbon Dioxide Level 22, Calcium Level 7.9L CBC/BMP Laboratory Tests 04/05/17 13:04 04/06/17 05:05 Red Blood Count 3.21 L, Mean Corpuscular Volume 90.9, Mean Corpuscular Hemoglobin 31.2, Mean Corpuscular Hemoglobin Concent 34.4, Red Cell Distribution Width 14.9 H, Calcium Level 7.9 L Microbiology Microbiology 04/04/17 Blood Culture - Preliminary, Resulted No Growth after 48 hours. All Specime... 04/04/17 Blood Culture - Preliminary, Resulted No Growth after 48 hours. All Specime... 04/02/17 Blood Culture - Preliminary, Resulted No Growth after 72 hours. All specime... 04/02/17 Blood Culture - Preliminary, Resulted No Growth after 72 hours. All specime... 03/27/17 Blood Culture - Final, Complete Escherichia Coli 03/27/17 Blood Culture - Final, Complete NO GROWTH AFTER 5 DAYS 03/27/17 Gram Stain - Final, Complete 03/27/17 Body Fluid Culture - Final, Complete 04/03/17 Urine Culture - Final, Complete 03/27/17 Anaerobic Culture - Final, Complete LEATHA DRIVER Apr 06, 2017 10:22
[2017-04-06 14:00] VITALS: BP 162/64
[2017-04-06 14:38] VITALS: BP 142/64
[2017-04-06 18:30] VITALS: BP 174/78
[2017-04-06] MEDS ORDERED: GABAPENTIN 100 MG CAP PO SCH (21:00)
[2017-04-06] MEDS: AMITRIPTYLINE 25 MG TAB PO SCH (21:45)
[2017-04-06] MEDS: SIMVASTATIN 20 MG TAB PO SCH (21:45)
[2017-04-06] MEDS: rOPINIRole 1MG TAB PO SCH (21:46)
[2017-04-06 22:00] VITALS: BP 169/75
[2017-04-07] MEDS: LORazepam 2 MG/ML VIAL (J2060) IV PRN (00:10)
[2017-04-07 01:56] VITALS: BP 170/89
[2017-04-07] MEDS: VANCOMYCIN HCL 1,000 MG, VIAL MATE ADAPTER 1 EACH in D5W 250 ML IV SCH ×2 (04:38→16:32)
[2017-04-07] MEDS: SODIUM CHLORIDE 0.9% INJ 10 ML SYR IV SCH ×3 (05:28→22:00)
[2017-04-07 05:58] LABS: BASO % 0.2 % (0.0-1.0); EOS % 0.1 % (0.0-3.0); LARGE UNSTAINED CELL # 0.2 K/mm3 (0.0-0.4); LARGE UNSTAINED CELL % 0.8 % (0.0-4.0); LYMPH # 1.3 K/mm3 (1.5-4.5); LYMPH % 5.1 % (24.0-44.0); MEAN CORPUSCULAR HEMOGLOBIN 30.4 pg (27.0-33.0); MEAN CORPUSCULAR HGB CONC 32.8 g/dl (32.0-36.5); MEAN CORPUSCULAR VOLUME 92.9 fl (80.0-96.0); MONO # 1.2 K/mm3 (0.0-0.8); MONO % 5.4 % (0.0-5.0); NEUTROPHILS # 19.3 K/mm3 (1.8-7.7); NEUTROPHILS % 88.4 % (36.0-66.0); PLATELET COUNT, AUTOMATED 163 k/mm3 (150-450); RED CELL DISTRIBUTION WIDTH 15.3 % (11.5-14.5); WHITE BLOOD COUNT 21.9 K/mm3 (4.0-10.0)
[2017-04-07 06:00] VITALS: BP 182/82
[2017-04-07 06:02] LABS: ANION GAP 11 MEQ/L (8-16); BLOOD UREA NITROGEN 31 MG/DL (7-18); CALCIUM LEVEL 7.5 MG/DL (8.8-10.2); CARBON DIOXIDE LEVEL 24 MEQ/L (21-32); CHLORIDE LEVEL 103 MEQ/L (98-107); CREATININE FOR GFR 0.78 MG/DL (0.70-1.30); GLOMERULAR FILTRATION RATE > 60.0 (>42); GLUCOSE, FASTING 114 MG/DL (83-110); POTASSIUM SERUM 3.8 MEQ/L (3.5-5.1); SODIUM LEVEL 138 MEQ/L (136-145)
[2017-04-07] MEDS: ATENOLOL 50 MG TAB PO SCH (08:17)
[2017-04-07] MEDS: methylPREDNISolone INJ 40 MG/1 ML VIAL (J2920) IV SCH (08:17)
[2017-04-07] MEDS: LISINOPRIL 10 MG TAB PO SCH (08:17)
[2017-04-07] MEDS: amLODIPine 5 MG TAB PO SCH (08:18)
[2017-04-07] MEDS: busPIRone 5 MG TAB PO SCH ×2 (08:18→22:53)
[2017-04-07] MEDS: FUROSEMIDE 20 MG TAB PO SCH (08:18)
[2017-04-07] MEDS: HumaLOG INSULIN (NovoLOG) PER UNIT SC SCH ×4 (08:19→21:00)
[2017-04-07] MEDS: PANTOPRAZOLE 40MG INJ (PROTONIX) (C9113) IV SCH (08:23)
[2017-04-07] MEDS: ADVAIR HFA 115/21MCG INHALER INH SCH ×2 (08:28→19:53)
[2017-04-07 14:00] VITALS: BP 130/90
[2017-04-07 22:00] VITALS: BP 135/66
[2017-04-07] MEDS: SIMVASTATIN 20 MG TAB PO SCH (22:53)
[2017-04-07] MEDS: rOPINIRole 1MG TAB PO SCH (22:53)
[2017-04-07] MEDS: AMITRIPTYLINE 25 MG TAB PO SCH (22:53)
[2017-04-08] MEDS: GABAPENTIN 300 MG CAP PO SCH ×2 (01:20→22:07)
[2017-04-08] MEDS: VANCOMYCIN HCL 1,000 MG, VIAL MATE ADAPTER 1 EACH in D5W 250 ML IV SCH (04:37)
[2017-04-08 06:00] VITALS: BP 159/71
[2017-04-08] MEDS: SODIUM CHLORIDE 0.9% INJ 10 ML SYR IV SCH ×3 (06:00→22:04)
[2017-04-08 06:40] LABS: MEAN CORPUSCULAR HGB CONC 32.7 g/dl (32.0-36.5); MEAN CORPUSCULAR VOLUME 94.8 fl (80.0-96.0); RED CELL DISTRIBUTION WIDTH 15.6 % (11.5-14.5)
[2017-04-08 06:57] LABS: ANION GAP 10 MEQ/L (8-16); BLOOD UREA NITROGEN 31 MG/DL (7-18); CALCIUM LEVEL 7.7 MG/DL (8.8-10.2); CARBON DIOXIDE LEVEL 24 MEQ/L (21-32); CHLORIDE LEVEL 103 MEQ/L (98-107); CREATININE FOR GFR 0.73 MG/DL (0.70-1.30); GLOMERULAR FILTRATION RATE > 60.0 (>42); GLUCOSE, FASTING 185 MG/DL (83-110); POTASSIUM SERUM 3.9 MEQ/L (3.5-5.1); SODIUM LEVEL 137 MEQ/L (136-145)
[2017-04-08] MEDS: ADVAIR HFA 115/21MCG INHALER INH SCH ×2 (07:43→19:31)
--- NOTE | 2017-04-08 08:15 | ED PDOC ---
Post-Departure Follow-Up radiology report faxed to Rafa Lawrence Sarah MD Apr 08, 2017 08:15
[2017-04-08] MEDS: HumaLOG INSULIN (NovoLOG) PER UNIT SC SCH ×4 (08:56→22:06)
[2017-04-08] MEDS: busPIRone 5 MG TAB PO SCH ×2 (08:56→22:06)
[2017-04-08] MEDS: LISINOPRIL 10 MG TAB PO SCH (08:57)
[2017-04-08] MEDS: ATENOLOL 50 MG TAB PO SCH (08:57)
[2017-04-08] MEDS: FUROSEMIDE 20 MG TAB PO SCH (08:57)
[2017-04-08] MEDS: amLODIPine 5 MG TAB PO SCH (08:57)
[2017-04-08] MEDS: methylPREDNISolone INJ 40 MG/1 ML VIAL (J2920) IV SCH (08:58)
[2017-04-08] MEDS: PANTOPRAZOLE 40MG INJ (PROTONIX) (C9113) IV SCH (08:58)
--- NOTE | 2017-04-08 11:11 | IPN ---
DATE: 04/07/2017 SUBJECTIVE: The patient is currently 11 days postoperative from his exploratory laparotomy and colectomy for ischemia. He has been doing fairly well overall. He remains afebrile. He remains tachycardiac. His blood pressure has been up some this morning and his room air saturations are fine. The patient continues to recognize me. He is primarily focused on when he can go home and is very eager to go home. PHYSICAL EXAMINATION: He is alert. The abdomen is nondistended. His midline incision is nicely approximated with rhett. The ostomy has had some blood in it today and inspection shows a small bleeding point at the inferior edge in an area where he had a small area of necrotic mucosa on the undersurface of the stoma. IMPRESSION: Bleeding from the stoma and otherwise doing quite well. PLAN: The stoma was inspected and two sutures of 2-0 chromic were placed to control the small bleeding point and this completely stopped the blood loss. His ostomy appliance was changed in the course of suturing this bleeder. He tolerated this well. We will continue to monitor for any evidence of free bleeding, and I anticipate I will remove his surgical rhett in the next day or two. Whenever his medical issues are stable and he is felt to be capable of managing his ostomy, I would be happy to see him discharged home. LALO
[2017-04-08 12:36] LABS: MAGNESIUM LEVEL 1.3 MG/DL (1.8-2.4)
[2017-04-08 14:00] VITALS: BP 171/60
--- NOTE | 2017-04-08 14:44 | IPNPDOC ---
Date Seen The patient was seen on 04/07/17. Progress Note SUBJECTIVE: Patient is a 72-year-old male with syncope and s/p colon resection with colostomy. Patient is evaluated at bedside this morning. He is completing breakfast the time of evaluation. He states that he feels fine and would like to go home. He reports that he cares for his at home. He states that he has had home health at home before when he "broke his back" several years ago. 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 Have informed patient that PT needs to continue evaluating patient and that PFS needs to determine the needs of the patient before it is safe to discharge patient home. Patient continues to report that he does not sleep well and that he was up most of the night. Furthermore, there appears to be blood in his ostomy without an appreciable decrease in his hemoglobin/hematocrit. Appreciate the assistance of general surgery. OBJECTIVE PHYSICAL EXAMINATION: VITAL SIGNS: Please see below. GENERAL: Pleasant elderly male, appears stated age, well nourished, well developed, no acute distress. HEENT: Atraumatic, normocephalic, PERRL, EOMI, oral mucosa appears pink and moist, nasal septum appears midline, nares are patent CARDIOVASCULAR: Regular rate and rhythm, normal S1 and S2, tachycardic, no murmur, rub, click. RESPIRATORY: Clear to auscultation bilaterally, adequate inspiratory and expiratory airway excursion, no wheeze, rhonchi, crackles. ABDOMINAL: Round, bowel sounds appreciated, soft, non-tender, ostomy with receptacle noted on the left quadrant, colonic mucosa appears somewhat edematous , blood noted in the collecting receptacle, midline stapled incision that is clean, dry, intact, ecchymoses noted on the right lower back EXTREMITIES: Multiple ecchymoses noted on the bilateral upper extremities, peripheral pulses appreciated bilaterally in upper and lower extremities, equal , symmetrical, +2/4 NEUROLOGICAL: CN II-XII grossly intact PSYCHOLOGICAL: Alert and conversant, pleasant LABORATORY DATA: Please see below. MICROBIOLOGY: Please see below. DVT prophylaxis ordered?: TEDs, sequentials, knee high compression ASSESSMENT AND PLAN: This is a 72-year-old male with syncope s/p ischemic bowel with subsequent bowel resection. PROBLEMS: 1. Bleeding with anemia: Determined to be isolated to ulcer on the inferior portion of the stoma. General surgery has evaluated and elected to place two sutures to control the bleeding. Hemoglobin/hematocrit are 9.4/28.7. No hemoptysis, hematemesis, melena. Continue to monitor with daily CBC. 2. Rib, right acetabulum, inferior pubic ramus fracture: Orthopedics consulted. Recommend "touch-down weightbearing using a walker. He should work with physical therapy and be evaluated for possible rehabilitation placement. He should followup in 1 week's time for a repeat 5-view of the pelvis to ensure that the fracture is not displacing." 3. 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 No signs of infection so Zosyn has been discontinued. [place] removal per general surgery. Colostomy is functioning. 3. Restless Leg Syndrome: Continue Requip and start Gabapentin. Ativan and Haldol PRN agitation. 4. Hypertension: Restart Lisinopril, Lasix, Norvasc. 5. Tachycardia: Increase dose of Atenolol. 6. Leukocytosis: May be due to SoluMedrol, reduced dose to 40mg Daily. 7. COPD: Continue Advair and Proventil nebulizer. 8. DM: Continue Insulin sliding scale. 9. Depression: Continue Amitriptyline. 10. Right low back pain: Acetaminophen PRN. 11. Dyslipidemia: Continue current home medication of simvastatin. DISPOSITION: Appreciate the valued assistance from physical therapy. PFS consulted. VS, I&O, 24H, [facility] Vital Signs/I&O Vital Signs Date Time Temp Pulse Resp B/P (MAP) Pulse Ox O2 Delivery O2 Flow Rate FiO2 04/07/17 08:18 112 182/82 04/07/17 07:58 Room Air 04/07/17 06:00 97.8 20 99 04/02/17 22:06 2.0 I&O- Last 24 Hours up to 6 AM 04/07/17 06:00 Intake Total 2730 ml Output Total 3300 ml Balance -570 ml Laboratory Data 24H LABS Laboratory Tests 2 04/06/17 13:46: Bedside Glucose (Misc Panel) 122H 04/06/17 15:16: Vancomycin Level Trough 20.0 04/06/17 16:23: Bedside Glucose (Misc Panel) 255H 04/06/17 19:30: Bedside Glucose (Misc Panel) 243H 04/07/17 05:32: White Blood Count 21.9H, Red Blood Count 3.09L, Hemoglobin 9.4L, Hematocrit 28.7L, Mean Corpuscular Volume 92.9, Mean Corpuscular Hemoglobin 30.4, Mean Corpuscular Hemoglobin Concent 32.8, Red Cell Distribution Width 15.3H, Platelet Count 163, Neutrophils (%) (Auto) 88.4H, Lymphocytes (%) (Auto) 5.1L, Monocytes (%) (Auto) 5.4H, Eosinophils (%) (Auto) 0.1, Basophils (%) (Auto) 0.2 , Neutrophils # (Auto) 19.3H, Lymphocytes # (Auto) 1.3L, Monocytes # (Auto) 1.2H , Eosinophils # (Auto) 0.0, Basophils # (Auto) 0.0, Large Unclassified Cells % 0.8, Large Unclassified Cells # 0.2, Anion Gap 11, Glomerular Filtration Rate > 60.0, Blood Urea Nitrogen 31H, Creatinine 0.78, Sodium Level 138, Potassium Level 3.8, Chloride Level 103, Carbon Dioxide Level 24, Calcium Level 7.5L CBC/BMP Laboratory Tests 04/06/17 19:02 04/07/17 05:32 Red Blood Count 3.09 L, Mean Corpuscular Volume 92.9, Mean Corpuscular Hemoglobin 30.4, Mean Corpuscular Hemoglobin Concent 32.8, Red Cell Distribution Width 15.3 H, Neutrophils (%) (Auto) 88.4 H, Lymphocytes (%) (Auto ) 5.1 L, Monocytes (%) (Auto) 5.4 H, Eosinophils (%) (Auto) 0.1, Basophils (%) ( Auto) 0.2, Neutrophils # (Auto) 19.3 H, Lymphocytes # (Auto) 1.3 L, Monocytes # (Auto) 1.2 H, Eosinophils # (Auto) 0.0, Basophils # (Auto) 0.0, Calcium Level 7.5 L Microbiology Microbiology 04/04/17 Blood Culture - Preliminary, Resulted No Growth after 72 hours. All specime... 04/04/17 Blood Culture - Preliminary, Resulted No Growth after 72 hours. All specime... 04/02/17 Blood Culture - Preliminary, Resulted No Growth after 72 hours. All specime... 04/02/17 Blood Culture - Preliminary, Resulted No Growth after 72 hours. All specime... 04/06/17 Stool Occult Blood (IAN) - Final, Complete 04/03/17 Urine Culture - Final, Complete LEATHA DRIVER-Antonette Apr 07, 2017 11:09
[2017-04-08] MEDS: MAG SULF 1GM/100ML (MAG RUN) 1 GM in APPROPRIATE DILUENT 1 EA IV SCH ×2 (14:56→16:22)
--- NOTE | 2017-04-08 14:56 | IPNPDOC ---
Date Seen The patient was seen on 04/08/17. Progress Note SUBJECTIVE: Patient is a 72-year-old male with syncope status-post ischemic bowel with subsequent colonic resection and ostomy placement. Patient continues to insist on wanting to go home. He informs me that he has home health services that will be starting on Tuesday. He further reports that he plans on doing nothing when he gets home and that he has neighbors nearby who can assist him should he need it. I have discussed with PFS the need to make sure that patient can be safely discharged with a plan in place for patient to accurately demonstrate that he is able to care for his ostomy and receptacle and that he can easily and safely maneuver his home without further incident of falls. General surgery did place two sutures along an ulcer noted on the inferior portion of the patient's stoma and no further bleeding episodes have been noted. However, there is a continued decrease in patient's hemoglobin/ hematocrit. Will continue to monitor this with daily labs. During follow-up, home health services will be available for patient once he is determined safe for discharge. His significant other and a neighbor were present with PFS during follow-up and have reported that plans are underway to make the the home safe. Ostomy supplies will be delivered to the patient's home shortly. A rolling walker script has been signed and remains in patient's chart when ready for discharge. Hopefully patient stays the weekend and continues to show improvements with ostomy care and physical therapy. OBJECTIVE PHYSICAL EXAMINATION: VITAL SIGNS: Please see below. GENERAL: Pleasant elderly male, appears stated age, well nourished, well developed, somewhat tearful, in no acute distress HEENT: Atraumatic, normocephalic, PERRL, EOMI, oral mucosa appears pink and moist, nasal septum appears midline, nares are patent CARDIOVASCULAR: Regular rate and rhythm, normal S1 and S2, tachycardic, no murmur, rub, click RESPIRATORY: Clear to auscultation bilaterally, adequate inspiratory and expiratory airway excursion, no wheeze, rhonchi, crackles ABDOMINAL: Round, soft, non-distended, stapled midline incision that is clean, dry, intact, ostomy with receptacle in the left quadrant, colonic mucosa edematous, no overt signs of bleeding, ecchymoses again noted on the right lower back EXTREMITIES: Multiple ecchymoses noted on the bilateral upper extremities, left- sided subclavian TLC NEUROLOGICAL: CN II-XII grossly intact PSYCHOLOGICAL: Pleasant, alert and conversant, somewhat tearful LABORATORY DATA: Please see below. MICROBIOLOGY: Please see below. DVT prophylaxis ordered?: TEDs, sequentials, knee high compression. ASSESSMENT AND PLAN: This is a 72-year-old male with syncope status- post ischemic bowel with subsequent colonic resection and ostomy placement. PROBLEMS: 1. Anemia: Without overt bleeding. Stoma ulcer sutured by general surgery. Continue to monitor with labs and clinical condition. 2. Rib, right acetabulum, inferior pubic ramus fracture: Orthopedics consulted. Recommend "touch-down weightbearing using a walker. He should work with physical therapy and be evaluated for possible rehabilitation placement. He should followup in 1 week's time for a repeat 5-view of the pelvis to ensure that the fracture is not displacing." 3. 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 [place] to be removed per general surgery's recommendation. Vancomycin discontinued - no overt signs of infection present. Patient is without fever. Continued leukocytosis likely secondary to SoluMedrol. Colostomy is functioning. Continued ostomy teaching before able to discharge. 4. Tachycardia: Patient has remained tachycardic since presentation. Initially held beta-blockers secondary to hypotension on presentation, but have since restarted and increased patient's dose to 100mg daily. EKG on 04/05/17 showed sinus tachycardia. Continue to monitor for the time being. 5. Restless Leg Syndrome: Continue Requip. Increased dose of Gabapentin to 300mg nightly. Discontinued Ativan and Haldol. 6. Hypertension: Continue with Lisinopril, Lasix, and Norvasc. 7. Leukocytosis: May be due to Solumedrol. Have discontinued SoluMedrol. 8. COPD: Continue Advair and Proventil nebulizer. 9. Diabetes mellitus: Continue Insulin sliding scale. 10. Depression: Continue Amitriptyline. 11. Right low back pain: Acetaminophen PRN. 12. Dyslipidemia: Continue current home medication of simvastatin. DISPOSITION: Continued PT, ostomy teaching, possible discharge in the 72 hours. VS, I&O, 24H, Fishbone Vital Signs/I&O Vital Signs Date Time Temp Pulse Resp B/P (MAP) Pulse Ox O2 Delivery O2 Flow Rate FiO2 04/08/17 08:57 119 146/62 04/08/17 06:00 97.4 18 98 Room Air 04/02/17 22:06 2.0 I&O- Last 24 Hours up to 6 AM 04/08/17 05:59 Intake Total 1980 ml Output Total 1475 ml Balance 505 ml Laboratory Data 24H LABS Laboratory Tests 2 04/07/17 17:14: Bedside Glucose (Misc Panel) 399H 04/07/17 20:28: Bedside Glucose (Misc Panel) 237H 04/08/17 06:19: Anion Gap 10, Glomerular Filtration Rate > 60.0, Blood Urea Nitrogen 31H, Creatinine 0.73, Sodium Level 137, Potassium Level 3.9, Chloride Level 103, Carbon Dioxide Level 24, Calcium Level 7.7L, Magnesium Level 1.3L 04/08/17 11:52: Bedside Glucose (Misc Panel) 251H CBC/BMP Laboratory Tests 04/08/17 06:19 Red Blood Count 2.65 L, Mean Corpuscular Volume 94.8, Mean Corpuscular Hemoglobin 31.0, Mean Corpuscular Hemoglobin Concent 32.7, Red Cell Distribution Width 15.6 H, Calcium Level 7.7 L Microbiology Microbiology 04/04/17 Blood Culture - Preliminary, Resulted No Growth after 72 hours. All specime... 04/04/17 Blood Culture - Preliminary, Resulted No Growth after 72 hours. All specime... 04/02/17 Blood Culture - Final, Complete NO GROWTH AFTER 5 DAYS 04/02/17 Blood Culture - Final, Complete NO GROWTH AFTER 5 DAYS 04/06/17 Stool Occult Blood (IAN) - Final, Complete 04/03/17 Urine Culture - Final, Complete LEATHA DRIVER Apr 08, 2017 14:56
[2017-04-08] MEDS ORDERED: GABAPENTIN 100 MG CAP PO SCH (21:00)
[2017-04-08] MEDS ORDERED: traZODone 50 MG TAB PO PRN (21:00)
[2017-04-08 22:00] VITALS: BP 141/63
[2017-04-08] MEDS: SIMVASTATIN 20 MG TAB PO SCH (22:06)
[2017-04-08] MEDS: AMITRIPTYLINE 25 MG TAB PO SCH (22:06)
[2017-04-08] MEDS: rOPINIRole 1MG TAB PO SCH (22:07)
[2017-04-08] MEDS: ACETAMINOPHEN TAB 650MG DOSE (2X325MG) PO PRN (23:32)
[2017-04-09 06:00] VITALS: BP 167/82
[2017-04-09] MEDS: SODIUM CHLORIDE 0.9% INJ 10 ML SYR IV SCH ×3 (06:10→21:23)
[2017-04-09 06:47] LABS: MEAN CORPUSCULAR HGB CONC 33.8 g/dl (32.0-36.5); MEAN CORPUSCULAR VOLUME 94.7 fl (80.0-96.0); RED CELL DISTRIBUTION WIDTH 15.7 % (11.5-14.5); WHITE BLOOD COUNT 22.6 K/mm3 (4.0-10.0)
[2017-04-09 07:24] LABS: ANION GAP 8 MEQ/L (8-16); BLOOD UREA NITROGEN 32 MG/DL (7-18); CALCIUM LEVEL 8.1 MG/DL (8.8-10.2); CARBON DIOXIDE LEVEL 24 MEQ/L (21-32); CHLORIDE LEVEL 105 MEQ/L (98-107); CREATININE FOR GFR 0.74 MG/DL (0.70-1.30); GLOMERULAR FILTRATION RATE > 60.0 (>42); GLUCOSE, FASTING 138 MG/DL (83-110); POTASSIUM SERUM 4.1 MEQ/L (3.5-5.1); SODIUM LEVEL 137 MEQ/L (136-145)
[2017-04-09] MEDS: ADVAIR HFA 115/21MCG INHALER INH SCH ×2 (07:56→20:16)
[2017-04-09] MEDS: HumaLOG INSULIN (NovoLOG) PER UNIT SC SCH ×4 (08:37→21:00)
[2017-04-09] MEDS: ATENOLOL 50 MG TAB PO SCH (08:37)
[2017-04-09] MEDS: PANTOPRAZOLE 40MG INJ (PROTONIX) (C9113) IV SCH (08:37)
[2017-04-09] MEDS: FUROSEMIDE 20 MG TAB PO SCH (08:38)
[2017-04-09] MEDS: predniSONE 20 MG TAB PO SCH (08:38)
[2017-04-09] MEDS: LISINOPRIL 10 MG TAB PO SCH (08:38)
[2017-04-09] MEDS: busPIRone 5 MG TAB PO SCH ×2 (08:38→21:23)
[2017-04-09] MEDS: amLODIPine 5 MG TAB PO SCH (08:38)
[2017-04-09 09:49] LABS: MAGNESIUM LEVEL 1.6 MG/DL (1.8-2.4)
[2017-04-09] MEDS: MAG SULF 1GM/100ML (MAG RUN) 1 GM in APPROPRIATE DILUENT 1 EA IV SCH ×2 (09:56→11:02)
[2017-04-09 14:00] VITALS: BP 127/58
--- NOTE | 2017-04-09 15:25 | IPNPDOC ---
Date Seen The patient was seen on 04/09/17. 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 Patient states that the trazodone helped some with sleep. Reports improvement in his RLS with gabapentin. Denies any further bleeding into his ostomy. Denies hemoptysis, hematemesis, epistaxis. Would like to know if the TLC can come out. Would like for me to call his life partner and provide an update on his hospitalization. Patient is anticipating discharge on Tuesday. PT and OT have cleared patient for discharge. Nursing personnel continue with ostomy teaching. [place] have been removed. Ostomy is functioning appropriately. OBJECTIVE PHYSICAL EXAMINATION: VITAL SIGNS: Please see below. GENERAL: Elderly male, well nourished, well developed, appears stated age, no acute distress HEENT: Atraumatic, normocephalic, PERRL, EOMI, oral mucosa appears pink and moist, nasal septum appears midline, nares are patent CARDIOVASCULAR: Regular rate and rhythm, normal S1 and S2, no murmur, rub, click RESPIRATORY: Clear to auscultation bilaterally, possible mild crackles in the lower lung bases, no wheeze, rhonchi ABDOMINAL: Healing midline incision, wilder removed, left-sided ostomy with receptacle, non-bloody stool in receptacle EXTREMITIES: +1 pitting edema bilateral lower extremities up to the level of the tibial tuberosity, multiple healing ecchymoses noted on the bilateral upper extremities NEUROLOGICAL: CN II-XII grossly intact PSYCHOLOGICAL: Alert and conversant, pleasant LABORATORY DATA: Please see below. MICROBIOLOGY: Please see below. 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 PROBLEMS: 1. Hypomagnesemia: Replenished. 2. Insomnia: Patient has persistently not slept well. Initiated trazodone 50mg. Patient admits that it is helping. 3. Anemia: Without overt bleeding. Stoma ulcer sutured by general surgery. Continue to monitor with labs and clinical condition. TLC in place should transfusion be required. 4. Rib, right acetabulum, inferior pubic ramus fracture: Orthopedics consulted. Recommend "touch-down weightbearing using a walker. He should work with physical therapy and be evaluated for possible rehabilitation placement. He should followup in 1 week's time for a repeat 5-view of the pelvis to ensure that the fracture is not displacing." 5. 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 Wilder have been removed. Patient is without fever. Continued leukocytosis likely secondary to SoluMedrol. Adjusting to PO prednisone. Colostomy is functioning. Continued ostomy teaching before able to discharge. 6. Tachycardia: Improved today. Patient has remained tachycardic since presentation. Initially held beta-blockers secondary to hypotension on presentation, but have since restarted and increased patient's dose to 100mg daily. EKG on 04/05/17 showed sinus tachycardia. Continue to monitor for the time being. 7. Restless Leg Syndrome: Continue Requip. Increased dose of Gabapentin to 300mg nightly. Discontinued Ativan and Haldol. 8. Hypertension: Continue with Lisinopril, Lasix, and Norvasc. 9. Leukocytosis: Adjusted IV SoluMedrol to PO prednisone. 10. COPD: Continue Advair and Proventil nebulizer. 11. Diabetes mellitus: Continue Insulin sliding scale. 12. Depression: Continue Amitriptyline. 13. Right low back pain: Acetaminophen PRN. 14. Dyslipidemia: Continue current home medication of simvastatin. DISPOSITION: PT and OT have cleared patient for discharge. Patient requires continued ostomy teaching. Family and neighbor are preparing home for discharge. Ostomy supplies sent to patient's home. Rolling water script provided in chart. Anticipate discharge in the next 48-72 hours. VS, I&O, 24H, Darin Vital Signs/I&O Vital Signs Date Time Temp Pulse Resp B/P (MAP) Pulse Ox O2 Delivery O2 Flow Rate FiO2 04/09/17 08:38 167/82 04/09/17 08:38 92 04/09/17 08:00 Room Air 04/09/17 06:00 97.3 18 97 I&O- Last 24 Hours up to 6 AM 04/09/17 06:00 Intake Total 1400 ml Output Total 1325 ml Balance 75 ml Laboratory Data 24H LABS Laboratory Tests 2 04/08/17 17:07: Bedside Glucose (Misc Panel) 150H 04/08/17 20:28: Bedside Glucose (Misc Panel) 332H 04/09/17 06:17: Anion Gap 8, Glomerular Filtration Rate > 60.0, Blood Urea Nitrogen 32H, Creatinine 0.74, Sodium Level 137, Potassium Level 4.1, Chloride Level 105, Carbon Dioxide Level 24, Calcium Level 8.1L, Magnesium Level 1.6L 04/09/17 12:26: Bedside Glucose (Misc Panel) 225H CBC/BMP Laboratory Tests 04/09/17 06:17 Red Blood Count 2.58 L, Mean Corpuscular Volume 94.7, Mean Corpuscular Hemoglobin 32.0, Mean Corpuscular Hemoglobin Concent 33.8, Red Cell Distribution Width 15.7 H, Calcium Level 8.1 L Microbiology Microbiology 04/04/17 Blood Culture - Final, Complete NO GROWTH AFTER 5 DAYS 04/04/17 Blood Culture - Final, Complete NO GROWTH AFTER 5 DAYS 04/02/17 Blood Culture - Final, Complete NO GROWTH AFTER 5 DAYS 04/02/17 Blood Culture - Final, Complete NO GROWTH AFTER 5 DAYS 04/06/17 Stool Occult Blood (IAN) - Final, Complete 04/03/17 Urine Culture - Final, Complete LEATHA DRIVER Apr 09, 2017 14:24
[2017-04-09] MEDS: NYSTATIN 500,000 U/5 ML SUSP UDC SS SCH ×2 (17:19→21:23)
--- NOTE | 2017-04-09 17:19 | IPN ---
DATE: 04/09/2017 The patient appears much more upbeat today. He is sitting up in his chair shaving. He seems oriented and clearly remembers me. He seems to understand his plan for discharge. He reports that he changed his ostomy appliance earlier today, and the nurse said he did well. The nurse confirms that he has been doing well with his ostomy care. Vital signs at 1400 show a temperature of 98, pulse of 90, respirations of 18 and blood pressure of 127/58 with a room air saturation of 100%. Intake and output on April 08: Intake 1430, output 1150 PHYSICAL EXAMINATION: Patient is alert and oriented. Sclerae are anicteric. Heart rate is regular. Abdomen is mildly protuberant. His incision is nicely healed, and the ostomy appears to be functioning well, though it remains mildly edematous, and there is no sign of any bleeding. LABORATORY FINDINGS: Today, WBC 22.6, hemoglobin 8, hematocrit 24 and platelet count of 196,000. Chemistry profile is normal with the exception of a BUN of 32 and glucose of 138. Magnesium is slightly low at 1.6. Fingerstick blood sugars in the last 24 hours range from 150-332. Blood cultures from April 04 show no growth. IMPRESSION: Continuing progress with developing skills with ostomy care. PLAN: From the surgery standpoint, the patient can be discharged when his medical issues are all stable. He should follow up with me 2-3 weeks after discharge. LALO
[2017-04-09] MEDS: AMITRIPTYLINE 25 MG TAB PO SCH (21:22)
[2017-04-09] MEDS: rOPINIRole 1MG TAB PO SCH (21:23)
[2017-04-09] MEDS: GABAPENTIN 300 MG CAP PO SCH (21:23)
[2017-04-09] MEDS: SIMVASTATIN 20 MG TAB PO SCH (21:23)
[2017-04-09] MEDS: traZODone 100 MG TAB PO PRN (21:33)
[2017-04-09 22:00] VITALS: BP 161/73
[2017-04-10] MEDS: SODIUM CHLORIDE 0.9% INJ 10 ML SYR IV SCH ×3 (05:59→20:15)
[2017-04-10 06:00] VITALS: BP 143/66
[2017-04-10 06:14] LABS: MEAN CORPUSCULAR HEMOGLOBIN 31.4 pg (27.0-33.0); MEAN CORPUSCULAR HGB CONC 33.7 g/dl (32.0-36.5); MEAN CORPUSCULAR VOLUME 93.3 fl (80.0-96.0); RED CELL DISTRIBUTION WIDTH 15.6 % (11.5-14.5); WHITE BLOOD COUNT 16.7 K/mm3 (4.0-10.0)
[2017-04-10 06:23] LABS: ANION GAP 6 MEQ/L (8-16); BLOOD UREA NITROGEN 33 MG/DL (7-18); CALCIUM LEVEL 7.9 MG/DL (8.8-10.2); CARBON DIOXIDE LEVEL 27 MEQ/L (21-32); CHLORIDE LEVEL 104 MEQ/L (98-107); CREATININE FOR GFR 0.83 MG/DL (0.70-1.30); GLOMERULAR FILTRATION RATE > 60.0 (>42); GLUCOSE, FASTING 140 MG/DL (83-110); POTASSIUM SERUM 4.2 MEQ/L (3.5-5.1); SODIUM LEVEL 137 MEQ/L (136-145)
[2017-04-10 06:49] LABS: MAGNESIUM LEVEL 1.7 MG/DL (1.8-2.4)
[2017-04-10] MEDS: ADVAIR HFA 115/21MCG INHALER INH SCH ×2 (07:19→21:00)
[2017-04-10] MEDS: HumaLOG INSULIN (NovoLOG) PER UNIT SC SCH ×4 (08:53→20:15)
[2017-04-10] MEDS: NYSTATIN 500,000 U/5 ML SUSP UDC SS SCH ×4 (08:54→20:16)
[2017-04-10] MEDS: PANTOPRAZOLE 40MG INJ (PROTONIX) (C9113) IV SCH (08:54)
[2017-04-10] MEDS: amLODIPine 5 MG TAB PO SCH (08:56)
[2017-04-10] MEDS: LISINOPRIL 10 MG TAB PO SCH (08:57)
[2017-04-10] MEDS: busPIRone 5 MG TAB PO SCH ×2 (08:57→20:16)
[2017-04-10] MEDS: ATENOLOL 50 MG TAB PO SCH (08:57)
[2017-04-10] MEDS: FUROSEMIDE 20 MG TAB PO SCH (08:58)
[2017-04-10] MEDS: predniSONE 20 MG TAB PO SCH (08:58)
[2017-04-10] MEDS ORDERED: MAG SULF 1GM/100ML (MAG RUN) 1 GM in APPROPRIATE DILUENT 1 EA IV ONE (09:30)
--- NOTE | 2017-04-10 09:46 | IPNPDOC ---
Text Note Date of Service The patient was seen on 04/10/17. 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 Patient states that the trazodone helped some with sleep. Reports improvement in his RLS with gabapentin. Denies any further bleeding into his ostomy. Denies hemoptysis, hematemesis, epistaxis. Would like to know if the TLC can come out. Would like for me to call his life partner and provide an update on his hospitalization. Patient is anticipating discharge on Tuesday. PT and OT have cleared patient for discharge. Nursing personnel continue with ostomy teaching. [place] have been removed. Ostomy is functioning appropriately. OBJECTIVE PHYSICAL EXAMINATION: VITAL SIGNS: Please see below. GENERAL: Elderly male, well nourished, well developed, appears stated age, no acute distress HEENT: Atraumatic, normocephalic, PERRL, EOMI, oral mucosa appears pink and moist, nasal septum appears midline, nares are patent CARDIOVASCULAR: Regular rate and rhythm, normal S1 and S2, no murmur, rub, click RESPIRATORY: Clear to auscultation bilaterally, possible mild crackles in the lower lung bases, no wheeze, rhonchi ABDOMINAL: Healing midline incision, rhett removed, left-sided ostomy with receptacle, non-bloody stool in receptacle EXTREMITIES: +1 pitting edema bilateral lower extremities up to the level of the tibial tuberosity, multiple healing ecchymoses noted on the bilateral upper extremities NEUROLOGICAL: CN II-XII grossly intact PSYCHOLOGICAL: Alert and conversant, pleasant LABORATORY DATA: Please see below. MICROBIOLOGY: Please see below. 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 1. Ischemic bowel - s/p bowel resection with colostomy - patient doing well with ostomy teaching, colostomy functioning well - surgical follow up appreciated - cleared for discharge from surgical perspective 2. Anemia - Hgb dropping slowly - 7.7 today, relatively asymptomatic - serial H/H - holding off on transfusion for now - stoma ulcer sutured by general surgery 3. Rib, right acetabulum, inferior pubic ramus fracture - Orthopedics consultation appreciated - continue with recommended activity - follow up in one week (04/12/17) for interim eval with 5-view of the pelvis 4. Hypomagnesemia - continue to follow and replete as needed 5. Insomnia - improving - continues trazodone 50mg. Patient admits that it is helping. 6. Tachycardia - sinus tachy - resolved - patient was tachycardic since presentation - Initially held beta-blockers secondary to hypotension on presentation - restarted BB 100mg daily 7. RLS - Continue Requip - Increased dose of Gabapentin to 300mg nightly. Discontinued Ativan and Haldol. 8. Hypertension - continue with Lisinopril, Lasix, and Norvasc. 9. Leukocytosis - likely secondary to steroids - receiving PO prednisone 10. COPD: Continue Advair and Proventil nebulizer. 11. Diabetes mellitus: Continue Insulin sliding scale. 12. Depression: Continue Amitriptyline. 13. Right low back pain: Acetaminophen PRN. 14. Dyslipidemia: Continue current home medication of simvastatin. DISPOSITION: Continue with serial H/H. Continue ostomy teaching. Family and neighbor are preparing home for discharge. Ostomy supplies sent to patient's home. Rolling water script provided in chart. Anticipate discharge in the next 48-72 hours. VS,Fishbone, I+O VS, Fishbone, I+O Laboratory Tests 04/10/17 05:48 Red Blood Count 2.45 L, Mean Corpuscular Volume 93.3, Mean Corpuscular Hemoglobin 31.4, Mean Corpuscular Hemoglobin Concent 33.7, Red Cell Distribution Width 15.6 H, Calcium Level 7.9 L Vital Signs Date Time Temp Pulse Resp B/P (MAP) Pulse Ox O2 Delivery O2 Flow Rate FiO2 04/10/17 08:57 89 143/66 04/10/17 06:00 98.1 18 96 Room Air I&O- Last 24 Hours up to 6 AM 04/10/17 06:00 Intake Total 2000 ml Output Total 2550 ml Balance -550 ml LELAND ANGEL MD Apr 10, 2017 09:46
[2017-04-10 14:00] VITALS: BP 128/60
[2017-04-10 20:07] VITALS: BP 150/56
[2017-04-10] MEDS: SIMVASTATIN 20 MG TAB PO SCH (20:15)
[2017-04-10] MEDS: rOPINIRole 1MG TAB PO SCH (20:15)
[2017-04-10] MEDS: AMITRIPTYLINE 25 MG TAB PO SCH (20:16)
[2017-04-10] MEDS: GABAPENTIN 300 MG CAP PO SCH (20:16)
[2017-04-10] MEDS: traZODone 100 MG TAB PO PRN (20:24)
[2017-04-11] MEDS: ALBUTEROL SULFATE 2.5 MG/0.5 ML INH NEB SOLN NEB PRN ×2 (04:27→08:50)
[2017-04-11 05:15] VITALS: BP 134/63
[2017-04-11] MEDS: SODIUM CHLORIDE 0.9% INJ 10 ML SYR IV SCH ×2 (05:22→13:08)
[2017-04-11 06:40] LABS: MEAN CORPUSCULAR HEMOGLOBIN 31.7 pg (27.0-33.0); MEAN CORPUSCULAR HGB CONC 33.1 g/dl (32.0-36.5); MEAN CORPUSCULAR VOLUME 95.9 fl (80.0-96.0); PLATELET COUNT, AUTOMATED 108 k/mm3 (150-450); RED CELL DISTRIBUTION WIDTH 15.7 % (11.5-14.5); WHITE BLOOD COUNT 15.4 K/mm3 (4.0-10.0)
[2017-04-11 06:54] LABS: ANION GAP 9 MEQ/L (8-16); BLOOD UREA NITROGEN 33 MG/DL (7-18); CARBON DIOXIDE LEVEL 25 MEQ/L (21-32); CHLORIDE LEVEL 106 MEQ/L (98-107); CREATININE FOR GFR 0.79 MG/DL (0.70-1.30); GLOMERULAR FILTRATION RATE > 60.0 (>42); GLUCOSE, FASTING 110 MG/DL (83-110); MAGNESIUM LEVEL 1.4 MG/DL (1.8-2.4); POTASSIUM SERUM 4.4 MEQ/L (3.5-5.1); SODIUM LEVEL 140 MEQ/L (136-145)
[2017-04-11 07:49] LABS: RETIC HEMOGLOBIN CONTENT CHr 34.8 PG (24-36); RETICULOCYTE ABSOLUTE ADVIA212 159 x10(9)/L (17-77)
[2017-04-11 07:56] LABS: REASON FOR REVIEW COMPREHENSIVE REVIEW
[2017-04-11] MEDS: ADVAIR HFA 115/21MCG INHALER INH SCH (08:05)
[2017-04-11] MEDS: MAG SULF 1GM/100ML (MAG RUN) 1 GM in APPROPRIATE DILUENT 1 EA IV SCH ×2 (08:14→08:15)
[2017-04-11] MEDS: NYSTATIN 500,000 U/5 ML SUSP UDC SS SCH ×2 (08:16→13:06)
[2017-04-11] MEDS: HumaLOG INSULIN (NovoLOG) PER UNIT SC SCH ×2 (08:16→13:07)
[2017-04-11] MEDS: PANTOPRAZOLE 40MG INJ (PROTONIX) (C9113) IV SCH (08:16)
[2017-04-11] MEDS: amLODIPine 5 MG TAB PO SCH (08:16)
[2017-04-11] MEDS: predniSONE 20 MG TAB PO SCH (08:17)
[2017-04-11] MEDS: ATENOLOL 50 MG TAB PO SCH (08:17)
[2017-04-11] MEDS: busPIRone 5 MG TAB PO SCH (08:17)
[2017-04-11 08:18] VITALS: BP 134/63
[2017-04-11 08:18] LABS: INR 1.03
[2017-04-11] MEDS: FUROSEMIDE 20 MG TAB PO SCH (08:18)
[2017-04-11] MEDS: LISINOPRIL 10 MG TAB PO SCH (08:18)
[2017-04-11 08:19] LABS: FERRITIN 930 NG/ML (26-388); TOTAL IRON BINDING CAPACITY 206 UG/DL (250-450)
[2017-04-11] MEDS ORDERED: PROPYLTHIOURACIL 50 MG TAB PO SCH ×2 (09:00→21:00)
[2017-04-11] MEDS ORDERED: FERROUS SULFATE 325MG TAB PO SCH (09:00)
[2017-04-11] MEDS ORDERED: CitaloPRAM (CeleXA) 20 MG TAB PO SCH (09:00)
[2017-04-11] MEDS: COMBIVENT RESPIMAT 100-20MCG INHALER 4GM INH SCH ×2 (09:00→11:33)
--- NOTE | 2017-04-11 09:16 | REP ---
Clinical: Continued chest pain and leukocytosis. Technique: Axial contrast enhanced images from the thoracic inlet to the upper abdomen using 100 ml Isovue 370 intravenous contrast material with coronal and sagittal re-formations. Comparison: 03/28/2017. Findings: Previously noted left chest tube has been removed, and the left-sided pneumothorax appears relatively unchanged although only a small amount of residual left-sided pleural fluid is now identified and the previously noted left lower lobe atelectasis has nearly completely resolved. The right lung demonstrates small pleural effusion and passive atelectasis which is improved from prior examination. Subcutaneous emphysema along the left hemithorax has improved as well. Mediastinum is stable with mild cardiomegaly again suggested as well as stable atherosclerotic changes to the thoracic aorta and coronary arteries. No pericardial effusion. No significant adenopathy. The tracheobronchial tree is patent and the previously noted endotracheal tube and nasogastric tube have been removed. Surrounding musculoskeletal structures are stable with continued evidence for multiple nondisplaced right rib fractures. Impression: Overall improved appearance when compared to 03/28/2017. Findings as detailed above including decreased pleural effusions, near complete resolution to the left lower lobe atelectasis and decreased subcutaneous emphysema. Signed by Samuel Hurley MD 04/11/2017 09:08 A
--- NOTE | 2017-04-11 13:44 | IPN ---
DATE: 04/11/2017 The patient is now 15 days postoperative from his exploratory laparotomy and bowel resection. He is somewhat disappointed right at this moment as he had been hoping to be out of the hospital today. The nurses apparently asked him to demonstrate ostomy care one more time. He is sitting up in a chair and has eaten half of his lunch. Vital Signs: The patient has been afebrile for the last 24 hours. Vital signs this morning show temperature 98.1, pulse 113, respiratory rate of 20, and a pulse oximetry of 96. Most recent blood pressure was 134/63. Intake and output yesterday showed 2000 and 2700 out with 300 of stool recorded. His weight is remaining stable. Physical exam shows him to be alert and he seems oriented. His abdomen shows that his midline incision is well-healed. The abdomen is slightly protuberant. His ostomy appliance is in place and he has some brown stool in the bag. There is no evidence of any further bleeding. Laboratory Studies: White count today is 15 with a hemoglobin of 8 and hematocrit of 24 and a platelet count of 108,000. PT, INR and PTT are normal. Chemistry profile shows normal electrolytes with a BUN of 33, creatinine 0.8 and glucose of 110. Magnesium is low at 1.4 and his iron is low at 35. IMPRESSION: The patient is doing quite well from the point of view of his abdominal surgery. His ostomy is functioning well and he appears to be making good progress with care of the ostomy. RECOMMENDATIONS: From my [id number], the patient can be discharged whenever his medical issues and pelvic fracture are stable and he has appropriate support in place. LALO
[2017-04-11 14:56] VITALS: BP 126/60
[2017-04-11] MEDS ORDERED: ATEN50TA2 PO (15:04)
[2017-04-11] MEDS ORDERED: GABA-282 PO (15:04)
[2017-04-11] MEDS ORDERED: NYST50SS SS (15:04)
[2017-04-11] MEDS ORDERED: PRED10TA2 PO (15:04)
--- NOTE | 2017-04-11 16:32 | REP ---
Clinical: Fracture. Follow-up. Technique: Five views of the pelvis. Findings: The fracture through the right acetabulum and right inferior pubic rami are again identified without displacement and appear relatively stable. Underlying osteopenia and degenerative changes are also appreciated and stable. No new obvious acute fracture. Impression: Stable appearance to the known right acetabular and inferior pubic ramus fracture Signed by Samuel Hurley MD 04/11/2017 04:23 P
--- NOTE | 2017-04-12 17:30 | DS.PDOC ---
Discharge Summary General Date of Admission Mar 26, 2017 at 23:44 Date of Discharge 04/11/2017 Attending Physician: LELAND ANGEL MD Specialist/Consultants Involve: Ashvin Crews Specialist/Consultants Involve Glass Cutting Machine Operator/critical care: Dr. Causey Thoracic surgery: Dr. Rosales Orthopedist: Dr. Estrada Discharge Summary PROCEDURES PERFORMED DURING STAY: 1. Left subclavian central line 2. Left anterior chest tube 3. Exploratory laparotomy with resection of distal transverse, descending, and sigmoid colon with end colostomy at the transverse colon level and oversewing of the rectal stump. 4. Anterior left chest tube with pleur-evac. ADMITTING DIAGNOSES: 1. Syncope. 2. Hypotonic hyponatremia. 3. Lactic acidosis. 4. Hypocalcemia. 5. Hypomagnesemia. 6. Hyperglycemia. 7. Constipation. 8. Colonic ileus. DISCHARGE DIAGNOSES: 1. Syncope. 2. Septic shock. 3. Ischemic bowel s/p exploratory laparotomy with resection and end colostomy. 4. Left-sided pneumothorax. 5. Hypomagnesemia, hypocalcemia. 6. Anemia. 7. Acute hypoxic respiratory failure. 8. Right rib fractures. 9. Right inferior pubic ramus fracture. 10. Right acetabulum fracture. 11. Insomnia. 12. Sinus tachycardia. COMPLICATIONS/CHIEF COMPLAINT: Syncopal Episode. HISTORY OF PRESENT ILLNESS: Mr. Higgins is a 72-year-old male who presents to [facility]'s emergency Department with syncope. Past medical history significant for hypertension, diabetes, hypothyroidism, dyslipidemia, gastroesophageal reflux disease, chronic obstructive pulmonary disease, osteoporosis, depression, coronary artery disease, history of anemia, history of pneumonia, adenomatous polyp, prior pleural effusion, duodenal ulcer , hemorrhoids, diverticulosis, history of gastritis, chronic cholecystitis, cholelithiasis. Patient reports that he presented to the emergency department a couple days ago with a mechanical fall without loss of consciousness. He was using his cane at the time. He states that he tripped and hit his head on the vacuum stitch cleaner. He states that he was given pain medication and was discharged. States that the pain medication helped, but he was only given a limited supply. Patient reports that he got up today to use the toilet and noted that he was quite dizzy when he went to stand. He was using his walker at the time. His called [employer] and a gentleman came over who lived just down the road. He attempted to help the patient rise. Patient reports again feeling dizzy and falling with positive loss of consciousness. Patient reports to me that EMS stated to the patient he had "no pulse and had ." Patient denies resuscitative efforts. Patient was ultimately brought to the emergency department. He admits to weight loss over the course of 2-3 months from 181 pounds to 176 pounds recorded at his primary care providers office visit last Tuesday. Admits to decreased appetite and "feeling dry." However, reports that he feels as though he is always drinking fluids. Patient also reports right lower quadrant and right flank pain as well as pain in his right groin secondary to his fall a couple days ago. Patient does walk with a walker and a cane secondary to a "broken back" that occurred approximately 2-3 years ago. Patient is able to perform ADLs, but does not ascend or descend stairs or is able to walk a city block. Emergency department obtained vital signs and labs as well as a head CT which was negative and CT of the abdomen and pelvis which showed constipation and colonic ileus. EKG showed normal sinus rhythm. Hospitalist service was consulted and patient was admitted for further medical management. HOSPITAL COURSE: The patient was admitted and aggressively resuscitated. Patient was re-evaluated several hours after admission due to worsening abdominal pain and persistent hypotension. Secondary to chronic steroid use patient was given stress dose steroids for potential underlying adrenal insufficiency and general surgery was consulted out of concern for ischemic bowel due to elevated lactic acid and anion gap metabolic acidosis. Patient was found to have septic shock secondary to ischemic bowel. IV antibiotics ( zosyn, vancomycin) were initiated, and blood and urine cultures were sent. All were negative. Antibiotics were eventually discontinued after successful determination that no infection was present. General surgery emergently performed exploratory laparotomy after consent was obtained. Surgery performed included exploratory laparotomy with resection of distal transverse, descending , and sigmoid colon with end colostomy at the transverse colon level and oversewing of the rectal stump. Wilder were placed along abdominal incision and removed prior to discharge. Incision was clean, dry, intact. Patient developed acute hypoxic respiratory failure secondary to underlying clinical picture. Pulmonary/critical care consultation was obtained. Patient was intubated following surgery. IVF was discontinued and pressors (levophed) were administered. Thoracic surgery was consulted for central catheter insertion. Small pneumothorax developed secondary to TLC insertion. Chest tube was inserted to alleviate pneumothorax. TPN was initiated, but eventually patient was transitioned to clear liquids and then a regular diet. Patient was eventually successfully extubated. Antibiotics were continued. Nasogastric tube inserted and eventually successfully removed once patient had positive flatus. Acute renal failure developed, but improved. Electrolyte abnormalities (hypocalcemia and hypomagnesemia) likely related to continued loop diuretic use with decreased oral intake. Held loop diuretic initially, but eventually resumed later. Electrolyte abnormalities replenished. Held metformin during admission and provided SSI. Patient remained tachycardic during admission and eventually his atenolol was resumed and increased to 100mg daily which appeared to improve the sinus tachycardia. Steroids were weaned from IV to PO and a tapering dose was prescribed at time of discharge. Likely one of the etiologies for continued leukocytosis noted during patients hospitalization. No fever documented. Improved with weaning of steroids. Chronic medical conditions were managed appropriately. DVT prophylaxis provided with TEDs, sequentials, knee high compression, and heparin 5,000 units SC every 8 hours. Patient received two units of leukocyte reduced PRBC. Heparin was discontinued secondary to visible blood noted in the ostomy collection receptacle. General surgery evaluated bleeding and sutured an ulcer located on the inferior portion of the stoma. The bleeding resolved. Patient remained anemic without further bleeding episodes. Peripheral smear was obtained and showed reactive leukocytosis and normocytic anemia with increased reticulocytes, suggestive of blood loss. Clinical correlation is recommended. Patients ferrous sulfate was resumed. Multiple rib fractures were appreciated on imaging, but correlate with imaging performed at a prior ED evaluation (03/24/2017). Right inferior pubic ramus fracture is appreciated on imaging obtained in the ED during this admission (03/26/2017). However, right acetabulum fracture is not appreciated until imaging obtained on 04/04/2017. Orthopedics was consulted and recommended touch-down weight-bearing with a walker after obtaining a complete pelvic x- ray. A follow-up complete pelvic x-ray was obtained prior to discharge. Anti- hypertensive medications were resumed. Gabapentin was initiated secondary to continued restless leg syndrome. Trazodone was provided for insomnia. There was a question about some confusion/agitation and sedation was attempted with Ativan and Haldol. It was discontinued as it did not provide symptomatic relief. A sitter was briefly placed. PTU administered for hyperthyroidism. GERD was managed with protonix. Simvastatin provided for dyslipidemia. Appropriate breathing treatments provided for COPD. Patient demonstrated proficiency with ostomy management. PT and OT evaluated and treated patient and both cleared patient for discharge home with services. Patient made great improvement throughout hospitalization and was stable for discharge home with services. Follow-up appointments with primary care provider, general surgery, and orthopedics. DISCHARGE MEDICATIONS: Please see below. ALLERGIES: Please see below. PHYSICAL EXAMINATION ON DISCHARGE: VITAL SIGNS: Please see below. GENERAL: Well developed, well nourished male, sitting bedside during evaluation, appears stated age, alert and oriented x3, no acute distress HEENT: Atraumatic, normocephalic, PERRL, EOMI, oral mucosa appears pink and moist, nasal septum appears midline, nares are patent NECK: Soft, supple, trachea midline, no lymphadenopathy CARDIOVASCULAR EXAMINATION: Regular rate and rhythm, normal S1 and S2, no murmur , rub, click RESPIRATORY EXAMINATION: Clear to auscultation bilaterally, adequate inspiratory and expiratory airway excursion, no wheeze, rhonchi, crackles ABDOMINAL EXAMINATION: Healed midline incision that is clean, dry, intact, ostomy present in left quadrant with ostomy receptacle containing stool, stoma mucosa appears pink and most without visible bleeding, somewhat edematous EXTREMITIES: Peripheral pulses appreciated bilaterally in upper extremities, +1 pitting edema noted in bilateral lower extremities up to the level of the tibial tuberosity SKIN: Mendez appearing upper extremities, multiple ecchymoses noted on upper extremities and right-sided back NEUROLOGICAL EXAMINATION: CN II-XII grossly intact PSYCHIATRIC EXAMINATION: Alert and oriented x3, pleasant and conversant LABORATORY DATA: Please see below. IMAGING: CT head without contrast - 03/26/2017 IMPRESSION: 1. No acute hemorrhage or infarct. Findings are consistent with mild chronic small vessel ischemic disease. 2. Ethmoid and sphenoid sinusitis. Portable chest x-ray - 03/26/2017 IMPRESSION: No acute disease. CT abdomen and pelvis with IV contrast only - 03/26/2017 IMPRESSION: 1. Moderate constipation. Diffuse fluid distention of the colon, consistent with colonic ileus. There is no focal evidence of bowel obstruction. 2. Small bilateral pleural effusions and lower lobe atelectasis. Moderate emphysema. 3. Simple left renal cyst. 4. Severe spondylosis of the spine. Multilevel compression fractures as described, most severe L1 and L2. No acute fractures are identified however. ADDENDUM: In retrospect, there is buckling of the inferior pubic ramus of the right pelvis visible on the 03/26/2017 study consistent with fracture. Its age is difficult to gauge. No definite adjacent swelling. I do not see a definite acetabular or iliac bone fracture. There are wedge compression fracture deformities at L2, L1, and to some degree, at L5 and L4, which appear to be old. A subtle cortical disruption is seen in the lateral 7th rib on the right on these images. Chest x-ray - 03/27/2017 IMPRESSION: 1. The patient is status post central line placement in the region of the right atrium. 2. Small left pneumothorax. 3. Left lower lobe atelectasis. Chest x-ray - 03/27/2017 IMPRESSION: 1. Left lower lobe atelectasis. 2. Left pneumothorax slightly decreased in size compared to the previous study. Chest x-ray - 03/27/2017 IMPRESSION: 1. The patient is status post left chest tube insertion. A small left pneumothorax is present unchanged compared to the previous study. 2. Left upper lobe contusion. 3. Left lower lobe atelectasis. Portable chest x-ray - 03/27/2017 IMPRESSION: 1. Small left pneumothorax unchanged compared to the previous study. A left chest tube is present. 2. Left upper lobe contusion increased in size compared to the previous study. 3. Left lower lobe atelectasis unchanged compared to the previous study. Portable chest x-ray - 03/27/2017 IMPRESSION: 1. Small left pneumothorax unchanged compared to the previous study. A left chest tube is present. 2. Left upper lobe contusion unchanged compared to the previous study. 3. Left lower lobe atelectasis unchanged compared to the previous study. Portable chest x-ray - 03/28/2017 IMPRESSION: Essentially stable chest x-ray findings. Small left-sided pneumothorax left chest tube in place. Fairly extensive soft tissue emphysema along the left chest. CT chest without contrast - 03/28/2017 IMPRESSION: Left chest tube demonstrates an intraparenchymal course through the left upper lobe. There are anteriorly peripheral subpleural air filled bullae. There is a small left-sided hydropneumothorax. There is lobar atelectasis in the left lower lobe. A small right pleural effusion has developed. There are multiple right-sided rib fractures again noted. Portable chest x-ray - 03/28/2017 IMPRESSION: New pleural drainage catheter in a similar position at the left apex. Small left apical pneumothorax. Extrathoracic soft tissue emphysema somewhat improved from this morning's film. Portable chest x-ray - 03/29/2017 IMPRESSION: Left pleural drainage catheter may be kinked approximately 6 cm proximal to its distal tip. I do not see a pneumothorax. The study is otherwise essentially stable. Portable chest x-ray - 03/30/2017 FINDINGS: Endotracheal tube appears to have been removed. The NG tube persists in the left upper quadrant. Left pleural drainage catheter is again seen in place. There is a decreased amount of extrathoracic soft tissue gas. A tiny left- sided pneumothorax is again seen unchanged. Pleural opacity is noted in the right base and probably left base unchanged. Portable chest x-ray - 03/31/2017 IMPRESSION: Left chest tube in place. Possible pneumothorax anteroinferiorly. Portable chest x-ray - 04/01/2017 FINDINGS: EKG monitoring electrodes are again seen. A left chest tube has been removed since yesterday's study. There is a small quantity of left apical pleural air. Some residual extrathoracic subcutaneous emphysema is seen, unchanged. There is discoid atelectasis in the left base. Hazy opacity persists over the left lower hemithorax and at the site of the previous chest tube in the left upper lobe, unchanged. Right lung remains clear. Chest x-ray, 2 view - 04/02/2017 IMPRESSION: 1. Chronic/stable pleuroparenchymal changes; cannot exclude superimposed process. 2. No obvious pneumothorax. 3. Decreased left-sided subcutaneous emphysema. Chest x-ray, 2 view - 04/03/2017 IMPRESSION: 1. Subtle left upper lobe opacity/infiltrate and trace left basilar atelectasis suggested. 2. Small amount of residual subcutaneous emphysema overlies the upper left chest wall. 3. No obvious pneumothorax. CT chest without contrast - 04/04/2017 IMPRESSION: Overall improved appearance when compared to 03/28/2017. Findings as detailed above including decreased pleural effusions, near complete resolution to the left lower lobe atelectasis and decreased subcutaneous emphysema. CT abdomen and pelvis with IV and oral contrast - 04/04/2017 IMPRESSION: 1. Moderate right iliac hematoma and adjacent right lower quadrant inflammatory stranding likely traumatic in nature. 2. Relatively acute fractures involving multiple right ribs, right acetabulum and right inferior pubic ramus. Compression deformities at L1 of indeterminate age and L2 which is chronic as compared to 01/14/2016. 3. Further chronic changes as described above. Pelvic x-ray, complete - 04/05/2017 IMPRESSION: Very subtle nondisplaced fractures involving the right acetabulum and right inferior pubic ramus. Pelvic x-ray, complete - 04/11/2017 IMPRESSION: Stable appearance to the known right acetabular and inferior pubic ramus fracture PROGNOSIS: Stable ACTIVITY: Rolling walker. DIET: Consistent carbohydrate. DISCHARGE PLAN: Continue with medications as discussed at discharge, including the tapering dose of prednisone. Once completed, resume regular dose of daily prednisone. Continue to use Nystatin Swish and Swallow four times a day or until the oral thrush improves. Start the new dose of Atenolol 100mg daily for your elevated heart rate. Start gabapentin 300mg nightly for restless leg syndrome. Could consider discusses with your primary care provider if long- term management is indicated. Follow-up with Dr. Crews regarding your recent colon resection. Follow-up with Dr. Estrada regarding your non-surgical acetabulum and pubic ramus fractures. Follow-up with your primary care provider regarding your chronic medical conditions. Continue to improve your functional status with home health. If, for any reason, you have worsening or persistent symptoms, including, but not limited to, weakness, fatigue, bleeding , falls, please return to your nearest emergency department for the appropriate care. DISPOSITION: Home Health Service. DISCHARGE INSTRUCTIONS: 1. Follow-up with Dr. Lawrence in 7-10 days. 2. Follow-up with Dr. Crews in 2-3 weeks. 3. Follow-up with Dr. Estrada. ITEMS TO FOLLOWUP ON ON OUTPATIENT: 1. Bowel resection and ostomy. 2. Rib, acetabulum, pubic ramus fractures. 3. PT and skilled therapy. 4. Medication adjustments. 5. Continued long-term management of chronic medical conditions. DISCHARGE CONDITION: Stable. TIME SPENT ON DISCHARGE: Greater than 90 minutes. Vital Signs/I&Os Vital Signs Date Time Temp Pulse Resp B/P (MAP) Pulse Ox O2 Delivery O2 Flow Rate FiO2 04/11/17 14:56 97.7 95 18 126/60 (82) 97 Room Air I&O- Last 24 Hours up to 6 AM 04/11/17 06:00 Intake Total 2020 ml Output Total 1925 ml Balance 95 ml Laboratory Data Labs 24H Laboratory Tests 2 04/11/17 04:59: Differential Slide Review Report, Differential Pathologist's Review COMPREHENSIVE REVIEW, Peripheral Blood Smear Path Consult PERIPHERAL SMEAR, Absolute Reticulocyte Count 159H, Percent Reticulocyte Count 6.20H, Reticulocyte Hgb Content (CHr) 34.8, Anion Gap 9, Glomerular Filtration Rate > 60.0, Blood Urea Nitrogen 33H, Creatinine 0.79, Sodium Level 140, Potassium Level 4.4, Chloride Level 106, Carbon Dioxide Level 25, Calcium Level 8.0L, Magnesium Level 1.4L, Iron Level 35L, Total Iron Binding Capacity 206L, Transferrin % Saturation 17.0L, Ferritin 930H 04/11/17 07:57: Prothrombin Time 13.6, Prothromb Time International Ratio 1.03, Activated Partial Thromboplast Time 25.5L, Vitamin B12 Level 768, Folate 12.0 04/11/17 11:47: Bedside Glucose (Misc Panel) 226H CBC/BMP Laboratory Tests 04/11/17 04:59 Red Blood Count 2.50 L, Mean Corpuscular Volume 95.9, Mean Corpuscular Hemoglobin 31.7, Mean Corpuscular Hemoglobin Concent 33.1, Red Cell Distribution Width 15.7 H, Calcium Level 8.0 L FSBS Laboratory Tests Test 04/11/17 11:47 Range/Units Bedside Glucose (Misc Panel) 226 83-110 MG/DL Microbiology Microbiology 04/04/17 Blood Culture - Final, Complete NO GROWTH AFTER 5 DAYS 04/04/17 Blood Culture - Final, Complete NO GROWTH AFTER 5 DAYS 04/02/17 Blood Culture - Final, Complete NO GROWTH AFTER 5 DAYS 04/02/17 Blood Culture - Final, Complete NO GROWTH AFTER 5 DAYS 04/06/17 Stool Occult Blood (IAN) - Final, Complete 04/03/17 Urine Culture - Final, Complete Discharge Medications Scheduled Albuterol/Ipratropium (Combivent Respimat 20-100 Mcg/Act) 1 Aer Aer, 1 PUFF INH QID, (Reported) Alendronate Sodium (Fosamax) 70 Mg Tab, 70 MG PO QWEEK, (Reported) SUNDAYS Amitriptyline HCl (Amitriptyline HCl) 25 Mg Tab, 25 MG PO QHS, (Reported) Amlodipine Besylate (Amlodipine Besylate) 5 Mg Tab, 5 MG PO DAILY, (Reported) Aspirin (Ecotrin Low Strength) 81 Mg Tab, 81 MG PO DAILY, (Reported) Atenolol (Atenolol) 50 Mg Tab, 100 MG PO DAILY Buspirone HCl (Buspirone HCl) 15 Mg Tab, 15 MG PO BID, (Reported) Citalopram Hydrobromide (Citalopram Hydrobromide) 20 Mg Tab, 20 MG PO DAILY, ( Reported) Cyanocobalamin (B12) 1,000 Mcg Tab, 1,000 MCG PO DAILY, (Reported) Ferrous Sulfate (Ferrous Sulfate) 325 Mg Tab, 325 MG PO TID, (Reported) Folic Acid (Folic Acid) 1 Mg Tab, 1 MG PO DAILY, (Reported) Furosemide (Lasix) 20 Mg Tab, 20 MG PO DAILY, (Reported) Gabapentin (Gabapentin) 300 Mg Cap, 300 MG PO QHS Lisinopril (Lisinopril) 10 Mg Tab, 10 MG PO DAILY, (Reported) Metformin Hydrochloride (Metformin HCl ER) 500 Mg Tab, 500 MG PO QID, (Reported) Nystatin (Nystatin Oral Susp) 5 Ml Susp, 5 ML SS QID Omeprazole (Omeprazole) 40 Mg Cap, 40 MG PO DAILY, (Reported) Prednisone (Prednisone) 10 Mg Tab, 10 MG PO DAILY, (Reported) Prednisone (Prednisone) 10 Mg Tab, 10 MG PO TAPER Take 4 tabs daily x 4 days, then 3 tabs daily x 7 days, then 2 tabs daily x 7 days, then 1 tab daily Propylthiouracil (Propylthiouracil) 50 Mg Tab, 50 MG PO QAM, (Reported) Propylthiouracil (Propylthiouracil) 50 Mg Tab, 25 MG PO QHS, (Reported) Ropinirole Hydrochloride (Requip) 4 Mg Tab, 4 MG PO QHS, (Reported) Salmeterol/Fluticasone (Advair Hfa 115-21 Mcg/Act) 1 Aer Aer, 2 PUFF INH BID, ( Reported) Simvastatin (Simvastatin) 20 Mg Tab, 20 MG PO QHS, (Reported) Scheduled PRN Albuterol Sulfate (Albuterol Sulfate) 2.5 Mg/3 Ml Nebu, 2.5 MG INH PRN PRN for WHEEZING, (Reported) Tramadol HCl (Tramadol HCl) 50 Mg Tab, 50 MG PO Q6H PRN for PAIN, (Reported) Allergies Coded Allergies: Quinolones (Verified Allergy, Intermediate, HIVES, 10/01/16) Azithromycin (Verified Allergy, Mild, hives, 10/01/16) Levofloxacin (Verified Allergy, Mild, 10/01/16) Tobramycin (Verified Allergy, Unknown, 06/04/16) Ibuprofen (Verified Adverse Reaction, Intermediate, STOMACH UPSET, 10/01/16) Zolpidem (Verified Adverse Reaction, Mild, HALLUCINATIONS, 11/01/12) LEATHA DRIVER OGME-I Apr 11, 2017 21:22
== END 2017-04-11 17:00 | disposition home health service (06) | DRG 853 ==
LOC: EDBD 19:47 → M ED 19:47 → M ED INP 23:44 → M PCU 03-27 01:08 → M ICU 03-27 07:52 → M MS5PR 04-01 21:47
PROVIDERS: ADMIT Internal Medicine; ATTEND Internal Medicine
PROC: 05H63DZ Insertion of Intraluminal Device into Left Subclavian Vein, Percutaneous Approach (ICD-10-PCS; 2017-03-26)
PROC: 0DBN0ZZ Excision of Sigmoid Colon, Open Approach (ICD-10-PCS; 2017-03-27)
PROC: 0DTM0ZZ Resection of Descending Colon, Open Approach (ICD-10-PCS; 2017-03-27)
PROC: 0D1L0Z4 Bypass Transverse Colon to Cutaneous, Open Approach (ICD-10-PCS; 2017-03-27)
PROC: 0W9B30Z Drainage of Left Pleural Cavity with Drainage Device, Percutaneous Approach (ICD-10-PCS; 2017-03-27)
PROC: 0DBL0ZZ Excision of Transverse Colon, Open Approach (ICD-10-PCS; principal; 2017-03-27 10:46)
DX: A41.9 Sepsis, unspecified organism (principal); R65.21 Severe sepsis with septic shock; K55.049 Acute infarction of large intestine, extent unspecified; J96.01 Acute respiratory failure with hypoxia; S32.499A Other specified fracture of unspecified acetabulum, initial encounter for closed fracture; E87.2 Acidosis; N17.9 Acute kidney failure, unspecified; J95.811 Postprocedural pneumothorax; S27.321A Contusion of lung, unilateral, initial encounter; S22.41XA Multiple fractures of ribs, right side, initial encounter for closed fracture; S32.519A Fracture of superior rim of unspecified pubis, initial encounter for closed fracture; K56.7 Ileus, unspecified; S32.591A Other specified fracture of right pubis, initial encounter for closed fracture; K80.10 Calculus of gallbladder with chronic cholecystitis without obstruction; E87.1 Hypo-osmolality and hyponatremia; K94.01 Colostomy hemorrhage; E86.0 Dehydration; E83.42 Hypomagnesemia; E83.51 Hypocalcemia; G47.00 Insomnia, unspecified; E11.9 Type 2 diabetes mellitus without complications; E03.9 Hypothyroidism, unspecified; E78.5 Hyperlipidemia, unspecified; K21.9 Gastro-esophageal reflux disease without esophagitis; J44.9 Chronic obstructive pulmonary disease, unspecified; I25.10 Atherosclerotic heart disease of native coronary artery without angina pectoris; K57.30 Diverticulosis of large intestine without perforation or abscess without bleeding; Z79.52 Long term (current) use of systemic steroids; Z79.899 Other long term (current) drug therapy; Z79.82 Long term (current) use of aspirin; Z88.8 Allergy status to other drugs, medicaments and biological substances; M81.0 Age-related osteoporosis without current pathological fracture; Z87.891 Personal history of nicotine dependence; N28.1 Cyst of kidney, acquired; M47.816 Spondylosis without myelopathy or radiculopathy, lumbar region; T81.82XA Emphysema (subcutaneous) resulting from a procedure, initial encounter; E86.1 Hypovolemia; R00.0 Tachycardia, unspecified; K64.8 Other hemorrhoids; G25.81 Restless legs syndrome; W18.30XA Fall on same level, unspecified, initial encounter; Y92.009 Unspecified place in unspecified non-institutional (private) residence as the place of occurrence of the external cause

== ENCOUNTER → 2017-04-15 | Outpatient (REF) | payer MEDICARE, OTHER ==
[~2017-04-15] MED LIST changes: +ADVA115A INH; +AMLO5TAB2 PO; +ATEN50TA2 PO; +B121000T PO; +FOLI1TAB4 PO; +FOSA70TA PO; +GABA-282 PO; +METF500T4 PO; +NYST50SS SS; +PRED10TA2 PO; +REQU4TAB3 PO; +SIMV20TA2 PO
[2017-04-15 16:46] LABS: MEAN CORPUSCULAR HEMOGLOBIN 31.8 pg (27.0-33.0); MEAN CORPUSCULAR VOLUME 96.3 fl (80.0-96.0); RED CELL DISTRIBUTION WIDTH 15.2 % (11.5-14.5); WHITE BLOOD COUNT 15.3 K/mm3 (4.0-10.0)
== END ==
LOC: M SHH 16:25
PROVIDERS: ATTEND Internal Medicine
DX: D64.9 Anemia, unspecified (principal)

== ENCOUNTER → 2017-04-21 | Outpatient (REF) | payer MEDICARE, OTHER ==
[2017-04-21 16:44] LABS: MEAN CORPUSCULAR HGB CONC 33.3 g/dl (32.0-36.5); MEAN CORPUSCULAR VOLUME 96.1 fl (80.0-96.0); RED CELL DISTRIBUTION WIDTH 14.8 % (11.5-14.5); WHITE BLOOD COUNT 13.3 K/mm3 (4.0-10.0)
== END ==
LOC: M SHH 13:33
PROVIDERS: ATTEND Family Medicine
DX: R06.09 Other forms of dyspnea (principal)

== ENCOUNTER → 2017-05-03 | Outpatient (REF) | payer MEDICARE, OTHER ==
[2017-05-03 20:13] LABS: MEAN CORPUSCULAR HEMOGLOBIN 30.7 pg (27.0-33.0); MEAN CORPUSCULAR HGB CONC 31.8 g/dl (32.0-36.5); MEAN CORPUSCULAR VOLUME 96.3 fl (80.0-96.0); RED CELL DISTRIBUTION WIDTH 15.5 % (11.5-14.5); WHITE BLOOD COUNT 15.9 10^3/uL (4.0-10.0)
== END ==
LOC: M SHH 16:37
PROVIDERS: ATTEND Family Medicine
DX: R06.09 Other forms of dyspnea (principal)

== ENCOUNTER → 2017-05-11 | Outpatient (REF) | payer MEDICARE, OTHER ==
[2017-05-11 15:30] LABS: BASO % 0.3 % (0.0-1.0); EOS # 0.2 10^3/uL (0.0-0.50); EOS % 1.9 % (0.0-3.0); IMMATURE GRANULOCYTE % 3.3 % (0-0); LYMPH # 1.6 10^3/uL (1.5-4.5); LYMPH % 14.9 % (24.0-44.0); MEAN CORPUSCULAR HGB CONC 33.4 g/dl (32.0-36.5); MEAN CORPUSCULAR VOLUME 92.7 fl (80.0-96.0); MONO # 0.8 10^3/uL (0.0-0.8); MONO % 7.4 % (0.0-5.0); NEUTROPHILS # 7.7 10^3/uL (1.8-7.7); NEUTROPHILS % 72.2 % (36.0-66.0); PLATELET COUNT, AUTOMATED 204 10^3/uL (150-450); RED CELL DISTRIBUTION WIDTH 14.2 % (11.5-14.5); WHITE BLOOD COUNT 10.6 10^3/uL (4.0-10.0)
== END ==
LOC: M SHH 15:13
PROVIDERS: ATTEND Family Medicine
DX: R30.0 Dysuria (principal); D64.89 Other specified anemias

== ENCOUNTER 2017-11-22 12:52 | Day surgery (SDC) | payer MEDICARE, OTHER ==
[2017-11-22] MEDS: LR 1,000 ML IV (14:09)
[2017-11-22] MEDS ORDERED: PROPOFOL 200 MG/20 ML VIAL As Ordered (15:20)
[2017-11-22] MEDS ORDERED: LIDOCAINE 2% INJ 100 MG/5 ML SDV (FOR ANES.) As Ordered (15:20)
== END 2017-11-22 17:03 | disposition home or self-care (01) ==
LOC: M OPP 12:52
DX: Z01.818 Encounter for other preprocedural examination (principal); Z98.0 Intestinal bypass and anastomosis status; K21.9 Gastro-esophageal reflux disease without esophagitis; J44.9 Chronic obstructive pulmonary disease, unspecified; F32.9 Major depressive disorder, single episode, unspecified; F41.9 Anxiety disorder, unspecified; E03.9 Hypothyroidism, unspecified; E11.9 Type 2 diabetes mellitus without complications; R00.0 Tachycardia, unspecified; D64.9 Anemia, unspecified; M19.90 Unspecified osteoarthritis, unspecified site; Z79.82 Long term (current) use of aspirin; Z79.891 Long term (current) use of opiate analgesic; Z79.899 Other long term (current) drug therapy; Z79.84 Long term (current) use of oral hypoglycemic drugs; Z88.0 Allergy status to penicillin; Z88.8 Allergy status to other drugs, medicaments and biological substances; Z87.891 Personal history of nicotine dependence
CPT/HCPCS: 45330

== ENCOUNTER → 2017-12-02 | Outpatient (CLI) | payer MEDICARE, OTHER | LOC: M RAD 13:07 | DX: S30.0XXA Contusion of lower back and pelvis, initial encounter (principal); X58.XXXA Exposure to other specified factors, initial encounter; Y92.89 Other specified places as the place of occurrence of the external cause | CPT/HCPCS: 72190 ==

== ENCOUNTER 2018-03-19 10:37 | Emergency (ER) | payer MEDICARE, OTHER ==
[2018-03-19] MEDS: IPRATROPIUM 0.5MG/ALBUTEROL 2.5MG INH SOL UD 3ML (DUONEB)(J7620) NEB ×2 (10:53→11:38)
[2018-03-19 11:25] LABS: BASO % 0.3 % (0.0-1.0); EOS # 0.8 10^3/uL (0.0-0.50); EOS % 7.2 % (0.0-3.0); HEMATOCRIT 34.1 % (42.0-52.0); HEMOGLOBIN 11.1 g/dl (13.5-17.5); IMMATURE GRANULOCYTE % 0.7 % (0-3.0); LYMPH # 1.5 10^3/uL (1.5-4.5); LYMPH % 14.3 % (24.0-44.0); MEAN CORPUSCULAR HGB CONC 32.6 g/dl (32.0-36.5); MEAN CORPUSCULAR VOLUME 92.2 fl (80.0-96.0); MONO # 0.8 10^3/uL (0.0-0.8); MONO % 7.3 % (0.0-5.0); NEUTROPHILS # 7.4 10^3/uL (1.8-7.7); NEUTROPHILS % 70.2 % (36.0-66.0); PLATELET COUNT, AUTOMATED 209 10^3/uL (150-450); RED CELL DISTRIBUTION WIDTH 13.5 % (11.5-14.5); WHITE BLOOD COUNT 10.5 10^3/uL (4.0-10.0)
[2018-03-19 11:37] LABS: INR 1.06
[2018-03-19 11:46] LABS: ALKALINE PHOSPHATASE 90 U/L (45-117); ALT/SGPT 15 U/L (12-78); ANION GAP 9 MEQ/L (8-16); AST/SGOT 11 U/L (7-37); BLOOD UREA NITROGEN 18 MG/DL (7-18); CALCIUM LEVEL 8.4 MG/DL (8.8-10.2); CARBON DIOXIDE LEVEL 25 MEQ/L (21-32); CHLORIDE LEVEL 98 MEQ/L (98-107); CPK CREATINE PHOSPHOKINASE 74 U/L (39-308); CREATININE FOR GFR 0.92 MG/DL (0.70-1.30); GLOMERULAR FILTRATION RATE > 60.0 (>42); GLUCOSE, FASTING 177 MG/DL (70-100); POTASSIUM SERUM 4.5 MEQ/L (3.5-5.1); SODIUM LEVEL 132 MEQ/L (136-145)
[2018-03-19 11:47] LABS: ALBUMIN 2.9 GM/DL (3.2-5.2); ALBUMIN/GLOBULIN RATIO 0.81 (1.00-1.93); BILIRUBIN,DIRECT 0.1 MG/DL (0.0-0.2); BILIRUBIN,TOTAL 0.5 MG/DL (0.2-1.0); TOTAL PROTEIN 6.5 GM/DL (6.4-8.2); TROPONIN I < 0.02 NG/ML (< 0.10)
[2018-03-19 11:52] LABS: CK-MB VALUE MASS 2.7 NG/ML (<3.6); MB/CK RELATIVE INDEX 3.64 (< OR =4); NT-PRO BNP 736 PG/ML (<125)
== END 2018-03-19 15:00 | disposition home or self-care (01) ==
LOC: M ED 10:37
DX: J44.1 Chronic obstructive pulmonary disease with (acute) exacerbation (principal); R00.0 Tachycardia, unspecified; R94.31 Abnormal electrocardiogram [ECG] [EKG]; I25.10 Atherosclerotic heart disease of native coronary artery without angina pectoris; E11.9 Type 2 diabetes mellitus without complications; I10 Essential (primary) hypertension; E78.5 Hyperlipidemia, unspecified; K21.9 Gastro-esophageal reflux disease without esophagitis; D64.9 Anemia, unspecified; Z87.891 Personal history of nicotine dependence; Z79.82 Long term (current) use of aspirin; Z79.84 Long term (current) use of oral hypoglycemic drugs; Z79.899 Other long term (current) drug therapy; Z88.1 Allergy status to other antibiotic agents; Z88.6 Allergy status to analgesic agent; Z88.8 Allergy status to other drugs, medicaments and biological substances
CPT/HCPCS: 71045

== ENCOUNTER → 2018-06-13 | Outpatient (REF) | payer MEDICARE, OTHER | LOC: M LAB REF 16:56 | DX: J44.9 Chronic obstructive pulmonary disease, unspecified (principal) | CPT/HCPCS: 87205 ==

== ENCOUNTER 2019-05-03 12:55 | Inpatient (IN) | payer MEDICARE, OTHER ==
[~2019-05-03] VITALS: Ht 167.6 cm; Wt 92.1 kg
[~2019-05-03 12:55] MED LIST changes: -AMLO5TAB2 PO; +AMLO5TAB6 PO; -ASCO25TA PO; +CEFU50TA PO; -CITA20TA4 PO; +CITA20TA6 PO; +D-3-50003 PO; +FOLI1TAB11 PO; -FOLI1TAB4 PO; -GABA-282 PO; +GABA-843 PO; -LASI20TA PO; +LASI20TA3 PO; +METF-791 PO; -METF500T4 PO; +PRED20TA PO; +VITA100067 PO; +VITA1TAB23 PO; +VITA500T PO
[2019-05-03] MEDS ORDERED: CYAN100050 PO (13:23)
[2019-05-03] MEDS ORDERED: ONDANSETRON 4MG/2ML VIAL (J2405) IV ONE (13:30)
[2019-05-03] MEDS ORDERED: MORPHINE 4 MG/ML 1ML VIAL/SYRINGE (J2270) IV ONE (13:30)
[2019-05-03 14:02] LABS: BASO % 0.2 % (0.0-1.0); EOS # 0.2 10^3/uL (0.0-0.5); EOS % 2.3 % (0.0-3.0); HEMATOCRIT 38.6 % (42.0-52.0); HEMOGLOBIN 12.6 g/dl (13.5-17.5); LYMPH # 0.7 10^3/uL (1.5-5.0); LYMPH % 6.1 % (24.0-44.0); MEAN CORPUSCULAR HEMOGLOBIN 31.3 pg (27.0-33.0); MEAN CORPUSCULAR HGB CONC 32.6 g/dl (32.0-36.5); MONO # 0.7 10^3/uL (0.0-0.8); MONO % 6.5 % (0.0-5.0); NEUTROPHILS # 8.9 10^3/uL (1.5-8.5); NEUTROPHILS % 84.2 % (36.0-66.0); PLATELET COUNT, AUTOMATED 212 10^3/uL (150-450); RED BLOOD COUNT 4.02 10^6/uL (4.30-6.10); WHITE BLOOD COUNT 10.6 10^3/uL (4.0-10.0)
[2019-05-03 14:13] LABS: INR 0.95; PROTHROMBIN TIME 12.4 SECONDS (11.8-14.0)
--- NOTE | 2019-05-03 14:22 | REP ---
REASON: Altered mental status. COMPARISON: Multiple, the latest 03/19/2018 a portable exam. The technique utilized in obtaining the radiograph has magnified the cardiac silhouette and accentuated the interstitial markings. There is cardiomegaly accentuated by technique. There is interstitial fibrotic change status quo and again accentuated by technique. The pleural angles remain sharp. No acute patchy parenchymal opacities or pleural effusions have developed. There is no change in the osseous structures. IMPRESSION: Stable appearing chronic changes without evidence of acute cardiopulmonary disease. Electronically Signed by Parker Stover DO 05/03/2019 02:34 P
[2019-05-03] MEDS ORDERED: GABA-843 PO (14:24)
[2019-05-03] MEDS ORDERED: ROPI4TAB PO (14:24)
[2019-05-03 14:37] LABS: ALBUMIN 3.3 GM/DL (3.2-5.2); ALT/SGPT 13 U/L (12-78); BILIRUBIN,DIRECT 0.1 MG/DL (0.0-0.2); BILIRUBIN,TOTAL 0.4 MG/DL (0.2-1.0); BLOOD UREA NITROGEN 34 MG/DL (7-18); CALCIUM LEVEL 8.4 MG/DL (8.8-10.2); CARBON DIOXIDE LEVEL 21 MEQ/L (21-32); CHLORIDE LEVEL 102 MEQ/L (98-107); CK-MB VALUE MASS 2.3 NG/ML (<3.6); CPK CREATINE PHOSPHOKINASE 63 U/L (39-308); CREATININE FOR GFR 2.55 MG/DL (0.70-1.30); GLOMERULAR FILTRATION RATE 26.5 (>42); GLUCOSE, FASTING 181 MG/DL (70-100); MB/CK RELATIVE INDEX 3.65 (< OR =4); SODIUM LEVEL 132 MEQ/L (136-145); THYROID STIMULATING HORMONE 0.833 uIU/ML (0.358-3.740); TOTAL PROTEIN 6.1 GM/DL (6.4-8.2); TROPONIN I < 0.02 NG/ML (< 0.10)
[2019-05-03] MEDS ORDERED: DEXTROSE 50% 50 ML SYRINGE IV PRN (15:30)
[2019-05-03] MEDS ORDERED: GLUCOSE 4 GM CHEW TABLET PO PRN (15:30)
[2019-05-03] MEDS ORDERED: GLUCAGON FOR INJ 1 MG VIAL (J1610) SC PRN (15:30)
--- NOTE | 2019-05-03 15:39 | REP ---
Pelvis, right hip: Three views. History: Altered mental status. Findings: AP view of the pelvis, with AP and cross-table lateral views of the right hip demonstrate a slightly comminuted intertrochanteric fracture of the right hip in varus. There is diffuse osteopenia. No acute pelvic fracture is seen. There is an old healed inferior pubic ramus fracture on the right. No sacral fracture is seen. There is a surgical clip in the right lower quadrant. Vascular calcification and degenerative spondylosis changes are noted. Impression: Comminuted somewhat impacted intertrochanteric fracture right hip in varus. Electronically Signed by Rodolfo Chester MD 05/03/2019 04:31 P
[2019-05-03] MEDS ORDERED: PILL CUTTER 1 EACH XX PRN (15:45)
--- NOTE | 2019-05-03 16:02 | HPE ---
DATE OF ADMISSION: 05/03/2019 CHIEF COMPLAINT: Right intertrochanteric hip fracture. HISTORY OF PRESENT ILLNESS: This pleasant 74-year-old man was seen in the [facility] ED. He tripped and fell this morning on a rug, he was taking his dog out. He sustained a ground-level fall, sustained a right hip fracture. He was taken to the hospital by an ambulance. I was consulted by the emergency room physician. He has no prior issues with pain in the hip. However, he did have a "fractured back" a number of years ago. PAST MEDICAL HISTORY: Includes: Diabetes. Heart problems. High blood pressure. Duodenal ulcer. Depression. Anxiety. Nervousness, Anemia. Hypothyroidism. Dyslipidemia. Asthma. Chronic obstructive pulmonary disease (COPD). MEDICATIONS: Include metformin, atenolol, omeprazole, citalopram, buspirone, amlodipine, vitamin B12, lisinopril, folic acid, furosemide, propylthiouracil, gabapentin, simvastatin, ropinirole, amitriptyline, [place] aspirin 81 mg once a day, vitamin C, vitamin D, Combivent, Advair, albuterol, alendronate, prednisone, tramadol. ALLERGIES: 1. LEVAQUIN. 2. AZITHROMYCIN. PAST SURGICAL HISTORY: Right eye laser surgery. Gallbladder. Partial colectomy with diverting colostomy. SOCIAL HISTORY: He is a retired man. He lives in [place] with his significant other Izabella, who is 73. He also has as mother who is 93. She is in the [place]. There is also an aunt in [place]. He lives in a two-story house. He is a nonsmoker. Does not consume alcohol or illicit drugs. He uses a cane in the winter to get to the car. He uses an electric cart to go shopping and has a four-wheeled walker that he uses as well. PHYSICAL EXAMINATION: Well-appearing pleasant 74-year-old man, laying supine in the bed. He is alert and oriented times three. His vital signs are stable. Blood pressure 123/56. Pulse rate 92. Respiratory rate 16. 97% on room air. Temperature 96.5. No other signs of any other injuries. Left lower extremity is normal. No pain to palpation distal to the knee on the right side. Right hip is quite sore and externally rotated. He has normal sensation throughout the foot and superficial and deep peroneal nerves as well as saphenous, sural and tibial. Good pedal pulses, dorsalis pedis and tibialis posterior. Foot is warm and well perfused. Appears chronically a little bit swollen, signs of venous stasis. Radiographs were obtained of the right hip and pelvis. This shows intertrochanteric right-sided hip fracture. Slightly displaced laterally. There does not appear to be distal extension of the fracture. Laboratory examination reveal hemoglobin of 12.6. Coag studies INR 0.95, PT 12.4. ASSESSMENT/PLAN: This 74-year-old man has intertrochanteric hip fracture on the right side. Talked about the pros and cons, risks and benefits of nonoperative versus operative management performed with open fracture fixation with a TFN-A. Specific surgical risks include but are not limited to infection, pain, stiffness, bleeding, neurovascular injury, delayed mal or nonunion, hardware breakage, hardware irritation, VTE complications as well as anesthetic problems, weakness and . He wished to proceed and he signed the consent form for right hip open reduction internal fixation. I also explained the pros and cons, risks and benefits of blood transfusion to him. Risks of that include but not limited to infection with bacteria viruses as well as fever and allergic reaction. He wished to proceed with that so he signed the consent form for possible need for blood transfusion. I have asked emergency room physician to consult the hospitalist to manage his medical issues as well as to admit him to the hospital. For now we will make him n.p.o. at midnight to plan for the surgery tomorrow afternoon while awaiting clearance. We will treat him with IV fluids. He can be on a heparin subcu 5000 twice a day or whatever VTE prophylaxis the hospitalist decides, but that should be held overnight in plan for the surgery. He had no further questions. I also wrote down the consent form the cell phone number for his significant other, Izabella [phone]. He had no further questions and I am looking forward to seeing him the day of surgery as well as tomorrow morning when I round.
[2019-05-03 17:50] VITALS: BP 121/66
[2019-05-03] MEDS: ASCORBIC ACID 500 MG TAB PO SCH ×2 (18:23→20:18)
[2019-05-03] MEDS: ACETAMINOPHEN TAB 650MG DOSE (2X325MG) PO PRN (18:40)
[2019-05-03] MEDS: NS 1,000 ML IV SCH ×2 (18:41→21:31)
[2019-05-03] MEDS: HumaLOG INSULIN (NovoLOG) PER UNIT SC SCH ×2 (18:41→20:26)
[2019-05-03] MEDS: oxyCODONE 5MG TAB PO PRN (18:58)
[2019-05-03] MEDS ORDERED: SOD POLYSTYRENE SULFONATE SUSP 15 GM/60 ML UD PO ONE (19:00)
--- NOTE | 2019-05-03 19:11 | ECGEPIP ---
[facility] - ED Test Date: 2019-05-03 Pat Name: KEITH RICHARDSON Department: Room: Gender: Male Junior Analyst: kevin : 1945 Requested By: HUSEYIN GUZMAN Order Number: [id number] Reading MD: Yuriy Mooney Measurements Intervals [place] Rate: 93 P: 59 DC: 160 QRS: 56 QRSD: 101 T: 70 QT: 334 QTc: 415 Interpretive Statements SINUS RHYTHM LEFT ATRIAL ENLARGEMENT NSTTW ABNORMALITIES SIMILAR TO 03/19/18 Electronically Signed on 05-03-2019 19:11:06 EDT by Yuriy Mooney
--- NOTE | 2019-05-03 19:26 | HPEPDOC ---
General Date of Admission May 03, 2019 at 15:08 Date of Service: May 03, 2019 Attending Physician: CORINA RAMIREZ MD Chief Complaint The patient is a 74-year-old male admitted with a reason for visit of Hip Fracture. Source: Patient Exam Limitations: No limitations Timing/Duration: 4-6 hours Severity: Moderate Associated Symptoms: Mechanical fall History of Present Illness 74-year-old man with a history of diabetes, high blood pressure, duodenal ulcer , hypothyroidism, dyslipidemia, Asthma and COPD who presented to the ED after he tripped and fell this morning on a rug as he was taking his dog out. He reports a witnessed (by family) fall during which he fell from standing onto his right side without hitting his head or any loss of consciousness. Family immediately called an ambulance and he was brought to the ED. In the ED he arrived hemodynamically stable reporting severe right hip pain. Initial work up was notable for hip xray that showed a comminuted intertrochanteric fracture of the right hip in varus with diffuse osteopenia and no acute pelvic fracture. Orthopedic surgery was consulted in the ED that is planning for right hip open reduction internal fixation tomorrow morning and recommended NPO at midnight. Home Medications Scheduled Alendronate Sodium (Fosamax) 70 Mg Tab, 70 MG PO QWEEK, (Reported) SUNDAYS Amitriptyline HCl (Amitriptyline HCl) 25 Mg Tab, 25 MG PO QHS, (Reported) Amlodipine Besylate (Amlodipine Besylate) 5 Mg Tab, 5 MG PO DAILY, (Reported) Ascorbic Acid (Vitamin C) 500 Mg Tab, 500 MG PO TID, (Reported) Aspirin (Ecotrin) 81 Mg Tab, 81 MG PO DAILY, (Reported) Atenolol (Atenolol) 50 Mg Tab, 50 MG PO DAILY, (Reported) Buspirone HCl (Buspirone HCl) 15 Mg Tab, 15 MG PO BID, (Reported) Cholecalciferol (Vitamin D3) (Vitamin D3) 5,000 Unit Cap, 5,000 UNIT PO DAILY, (Reported) Citalopram Hydrobromide (Citalopram HBr) 20 Mg Tab, 20 MG PO DAILY, (Reported) Cyanocobalamin (Vitamin B-12) (Vitamin B-12) 1,000 Mcg Tablet, 1,000 MCG PO TID, (Reported) Fluticasone Propion/Salmeterol (Advair Hfa 115-21 Mcg Inhaler) 1 Aer Aer, 2 PUFF INH BID, (Reported) Folic Acid (Folic Acid) 1 Mg Tab, 1 MG PO DAILY, (Reported) Furosemide (Lasix) 20 Mg Tab, 20 MG PO DAILY, (Reported) Gabapentin (Gabapentin) 300 Mg Capsule, 300 MG PO QHS, (Reported) Lisinopril (Lisinopril) 10 Mg Tab, 10 MG PO DAILY, (Reported) Metformin HCl (Metformin HCl ER) 500 Mg Tab, 500 MG PO ACHS, (Reported) Omeprazole (Omeprazole) 40 Mg Cap, 40 MG PO DAILY, (Reported) Prednisone (Prednisone) 10 Mg Tab, 10 MG PO DAILY, (Reported) Propylthiouracil (Propylthiouracil) 50 Mg Tab, 50 MG PO QAM, (Reported) Propylthiouracil (Propylthiouracil) 50 Mg Tab, 25 MG PO QHS, (Reported) Ropinirole HCl (Ropinirole HCl) 4 Mg Tablet, 4 MG PO QHS, (Reported) Simvastatin (Simvastatin) 20 Mg Tab, 20 MG PO QHS, (Reported) Scheduled PRN Albuterol Sulf (Albuterol Sulfate) 2.5 Mg/3 Ml Nebu, 2.5 MG INH PRN PRN for WHEEZING, (Reported) Ipratropium/Albuterol Sulfate (Combivent Respimat 20-100 Mcg) 1 Aer Aer, 1 PUFF INH QID PRN for SHORTNESS OF BREATH, (Reported) Tramadol HCl (Tramadol HCl) 50 Mg Tab, 50 MG PO Q6H PRN for PAIN, (Reported) Allergies Coded Allergies: Quinolones (Verified Allergy, Unknown, hives, 05/03/19) azithromycin (Verified Allergy, Unknown, hives, 05/03/19) ibuprofen (Verified Allergy, Unknown, upset stomach, 05/03/19) levofloxacin (Verified Allergy, Unknown, hives, 05/03/19) tobramycin (Verified Allergy, Unknown, unsure, 05/03/19) zolpidem (Verified Allergy, Unknown, hallucination, 05/03/19) Past Medical History Medical History Diabetes. Heart problems. High blood pressure. Duodenal ulcer. Depression. Anxiety. Nervousness, Anemia. Hypothyroidism. Dyslipidemia. Asthma. Chronic obstructive pulmonary disease (COPD). Surgical History Right eye laser surgery. Gallbladder. Partial colectomy with diverting colostomy. Family History Significant Family History: No pertinent family hx Social History * Smoker: Denies Alcohol: Denies Drugs: denies Recent Travel/Sick Contacts: Denies: Recent travel, Recent sick contacts Psychosocial History: No pertinent psych hx Lives with significant other, who called EMS when he fell. A-FIB/CHADSVASC A-FIB History Current/History of A-Fib/PAF?: No Current PO Anticoag Therapy: No Age/Risk Factor Scoring CHADSVASC: CHADSVASC Response (Comments) Value Age Risk Factor Age 65-74 years old 1 Gender Risk Factor Male 0 Hx of CHF No 0 Hx of HTN Yes 1 Hx of Stroke/TIA/or VTE No 0 Hx of Diabetes Yes 1 Hx of Vascular Disease Yes 1 Total 4 Treatment Treatment ordered: NONE Reason Anticoagulant not given: Not indicated/[id number] Review of Systems Constitutional: Denies: Chills, Fever, Night Sweats Eyes: Denies: Pain, Vision change ENT: Denies: Head Aches, Ear Pain, Dysphagia Skin: Denies: Rash, Lesions, Breakdown Pulmonary: Denies: Dyspnea, Cough Cardiovascular: Denies: Chest Pain, Palpitations, Orthopnea, Paroxysmal Noc. Dyspnea, Lt Headedness Gastrointestinal: Denies: Nausea, Vomiting, Abdominal Pain, Diarrhea Genitourinary: Denies: Dysuria, Frequency, Incontinence, Retention Hematologic: Denies: Bruising, Bleeding Excessively Musculoskeletal: Reports: Back Pain, Leg Pain, Joint Pain; Denies: Neck Pain, Muscle Pain, Spasms Neurological: Denies: Weakness, Numbness, Change in speech, Confusion Psych: Reports: Mood Normal; Denies: Depression, Memory Issues Physical Examination General Exam: Positive: Alert, No Acute Distress Eye Exam: Positive: PERRLA, Conjunctiva & lids normal, EOMI; Negative: Sclera icteric ENT Exam: Positive: Atraumatic, Mucous membr. moist/pink, Pharynx Normal Neck Exam: Positive: Supple; Negative: JVD, thyromegaly Chest Exam: Positive: Clear to auscultation, Normal air movement Heart Exam: Positive: Rate Normal, Regular Rhythm, Normal S1, Normal S2; Negative: Murmurs, Rubs Abdomen Exam: Positive: Normal bowel sounds, Soft; Negative: Tenderness, Hepatospenomegaly Extremity Exam: Positive: Normal pulses; Negative: Clubbing, Cyanosis, Edema Skin Exam: Positive: Nl turgor and temperature; Negative: Breakdown, Lesion Neuro Exam: Positive: Normal Speech, Strength at 5/5 X4 ext (RLE exam limited by pain, LLE 5/5 strength), Sensation Intact, Cranial Nerves 3-12 NL Psych Exam: Positive: Mental status NL, Mood NL, Oriented x 3 Vital Signs Vital Signs Date Time Temp Pulse Resp B/P (MAP) Pulse Ox O2 Delivery O2 Flow Rate FiO2 05/03/19 17:50 97.9 95 22 121/66 (84) 91 05/03/19 17:10 Room Air Laboratory Data Labs 24H Laboratory Tests 2 05/03/19 13:46: Immature Granulocyte % (Auto) 0.7, White Blood Count 10.6H, Red Blood Count 4.02L, Hemoglobin 12.6L, Hematocrit 38.6L, Mean Corpuscular Volume 96.0, Mean Corpuscular Hemoglobin 31.3, Mean Corpuscular Hemoglobin Concent 32.6, Red Cell Distribution Width 13.2, Platelet Count 212, Neutrophils (%) (Auto) 84.2H, Lymphocytes (%) (Auto) 6.1L, Monocytes (%) (Auto) 6.5H, Eosinophils (%) (Auto) 2.3, Basophils (%) (Auto) 0.2, Neutrophils # (Auto) 8.9H, Lymphocytes # (Auto) 0.7L, Monocytes # (Auto) 0.7, Eosinophils # (Auto) 0.2, Basophils # (Auto) 0.0, Nucleated Red Blood Cells % (auto) 0.0, Prothrombin Time 12.4, Prothromb Time International Ratio 0.95, Anion Gap 9, Glomerular Filtration Rate 26.5L, Calcium Level 8.4L, Aspartate Amino Transf (AST/SGOT) 8, Alanine Aminotransferase (ALT/SGPT) 13, Alkaline Phosphatase 108, Total Bilirubin 0.4, Direct Bilirubin 0.1, Total Creatine Kinase 63, Creatine Kinase MB 2.3, Creatine Kinase MB Relative Index 3.65, Troponin I < 0.02, Total Protein 6.1L, Albumin 3.3, Albumin/Globulin Ratio 1.18, Thyroid Stimulating Hormone (TSH) 0.833 05/03/19 17:25: Urine Color YELLOW, Urine Appearance CLEAR, Urine pH 5.0, Urine Specific [place] 1.011, Urine Protein NEGATIVE, Urine Glucose (UA) 1+H, Urine Ketones NEGATIVE, Urine Blood NEGATIVE, Urine Nitrite NEGATIVE, Urine Bilirubin NEGATIVE, Urine Urobilinogen 0.2, Urine Leukocyte Esterase NEGATIVE, Urine WBC (Auto) 2, Urine RBC (Auto) 2, Urine Hyaline Casts (Auto) 0, Urine Bacteria (Auto) NEGATIVE, Urine Squamous Epithelial Cells 0, Urine Sperm (Auto) 05/03/19 18:11: Bedside Glucose (Misc Panel) 156H CBC/BMP Laboratory Tests 05/03/19 13:46 Red Blood Count 4.02 L, Mean Corpuscular Volume 96.0, Mean Corpuscular Hemoglobin 31.3, Mean Corpuscular Hemoglobin Concent 32.6, Red Cell Distribution Width 13.2, Neutrophils (%) (Auto) 84.2 H, Lymphocytes (%) (Auto) 6.1 L, Mon ocytes (%) (Auto) 6.5 H, Eosinophils (%) (Auto) 2.3, Basophils (%) (Auto) 0.2, Neutrophils # (Auto) 8.9 H, Lymphocytes # (Auto) 0.7 L, Monocytes # (Auto) 0.7, Eosinophils # (Auto) 0.2, Basophils # (Auto) 0.0 Assessment/Plan 74 yo man who presented to the ED after sustaining a mechanical fall while taking out his dog and found to have a comminuted intertrochanteric fracture of the right hip pending surgery tomorrow. Right hip fracture: -oxy 5Q4 PRN for severe pain -Tramadol 50Q6H PRN for moderate pain -tylenol for mild pain -Dr. Cast consulted, pending surgery tomorrow -NPO at midnight Cardiac meds and hypertension: -lisinopril 10 -amlodipine 5 -alenolol 50 -ASA 81 -lasix 20 QD -Simvastatin 20 COPD: -Advair - Psych meds: -Buspar 15 BID -Celexa 20 -Elavil 25 QHS Neuropathy: -keara 100 QHS -Elavil 25 QHS Hypothyroidism: -PTU 50 -pred 10 Osteopenia: -Vit d 5000U QD -Alendronate 70Qweekly, next due on 05/06/2019 DVT prophylaxis: Lovenox Diet: regular, NPO at midnight Plan / VTE VTE Prophylaxis Ordered?: Yes CORINA RAMIREZ MD May 03, 2019 18:45
[2019-05-03] MEDS: ADVAIR HFA 115/21MCG INHALER INH SCH (19:59)
[2019-05-03] MEDS: PROPYLTHIOURACIL 50 MG TAB PO SCH (20:17)
[2019-05-03] MEDS: AMITRIPTYLINE 25 MG TAB PO SCH (20:17)
[2019-05-03] MEDS: SIMVASTATIN 20 MG TAB PO SCH (20:17)
[2019-05-03] MEDS: busPIRone 5 MG TAB PO SCH (20:17)
[2019-05-03] MEDS: GABAPENTIN 100 MG CAP PO SCH (20:18)
[2019-05-03 21:00] VITALS: BP 90/44
[2019-05-03] MEDS ORDERED: NS 500 ML IV ONE (21:30)
[2019-05-03 21:56] LABS: HEMOGLOBIN 11.1 g/dl (13.5-17.5); MEAN CORPUSCULAR HEMOGLOBIN 31.7 pg (27.0-33.0); MEAN CORPUSCULAR HGB CONC 32.6 g/dl (32.0-36.5); MEAN CORPUSCULAR VOLUME 97.1 fl (80.0-96.0); PLATELET COUNT, AUTOMATED 186 10^3/uL (150-450); WHITE BLOOD COUNT 11.5 10^3/uL (4.0-10.0)
[2019-05-03 22:33] VITALS: BP 112/52
[2019-05-04] VITALS (8 sets, daily range): BP systolic 95–140; BP diastolic 53–72
[2019-05-04 00:52] LABS: CALCIUM LEVEL 7.2 MG/DL (8.8-10.2); CREATININE FOR GFR 2.92 MG/DL (0.70-1.30); GLOMERULAR FILTRATION RATE 22.6 (>42); POTASSIUM SERUM 6.8 MEQ/L (3.5-5.1)
[2019-05-04] MEDS ORDERED: HumuLIN R (REGULAR) INSULIN (NovoLIN R) **100U/ML** PER UNIT IV STA (01:21)
[2019-05-04] MEDS ORDERED: DEXTROSE 50% 50 ML SYRINGE IV STA ×2 (01:21→14:00)
[2019-05-04] MEDS ORDERED: CALCIUM GLUCONATE 1,000 MG in D5W MINI-BAG PLUS 100 ML IV ONE (01:30)
[2019-05-04] MEDS ORDERED: CALCIUM CHLORIDE 10% 1 GM in D5W 100 ML IV SCH (01:30)
[2019-05-04] MEDS ORDERED: FLUBLOK(EGG FREE)(QUAD)INFLUENZA VACC 0.5ML SYRINGE (90682)18YRS&OLDER IM SCH (02:15)
[2019-05-04] MEDS ORDERED: PREVNAR 13 VACCINE SYRINGE (CPT CODE:90670) IM SCH (02:30)
[2019-05-04 02:33] LABS: BLOOD UREA NITROGEN 36 MG/DL (7-18); CALCIUM LEVEL 7.2 MG/DL (8.8-10.2); CARBON DIOXIDE LEVEL 21 MEQ/L (21-32); CHLORIDE LEVEL 103 MEQ/L (98-107); CREATININE FOR GFR 2.92 MG/DL (0.70-1.30); GLOMERULAR FILTRATION RATE 22.6 (>42); GLUCOSE, FASTING 174 MG/DL (70-100); SODIUM LEVEL 132 MEQ/L (136-145)
[2019-05-04] MEDS: oxyCODONE 5MG TAB PO PRN ×3 (02:40→15:59)
[2019-05-04 02:58] LABS: CK-MB VALUE MASS 1.6 NG/ML (<3.6); CPK CREATINE PHOSPHOKINASE 68 U/L (39-308); MB/CK RELATIVE INDEX 2.35 (< OR =4); TROPONIN I < 0.02 NG/ML (< 0.10)
[2019-05-04] MEDS ORDERED: SOD POLYSTYRENE SULFONATE SUSP 15 GM/60 ML UD PO ONE ×2 (03:00→11:00)
[2019-05-04] MEDS ORDERED: NS 1,000 ML IV SCH (04:30)
[2019-05-04] MEDS ORDERED: ceFAZolin SOD 2 GM in IV 1 EA IV ONE (06:00)
[2019-05-04 06:43] LABS: HEMATOCRIT 32.1 % (42.0-52.0); HEMOGLOBIN 10.4 g/dl (13.5-17.5); MEAN CORPUSCULAR HEMOGLOBIN 31.7 pg (27.0-33.0); MEAN CORPUSCULAR HGB CONC 32.4 g/dl (32.0-36.5); MEAN CORPUSCULAR VOLUME 97.9 fl (80.0-96.0); PLATELET COUNT, AUTOMATED 162 10^3/uL (150-450); RED BLOOD COUNT 3.28 10^6/uL (4.30-6.10); WHITE BLOOD COUNT 9.5 10^3/uL (4.0-10.0)
[2019-05-04 06:58] LABS: CALCIUM LEVEL 7.5 MG/DL (8.8-10.2); CREATININE FOR GFR 2.85 MG/DL (0.70-1.30); GLOMERULAR FILTRATION RATE 23.3 (>42); POTASSIUM SERUM 5.7 MEQ/L (3.5-5.1)
[2019-05-04] MEDS: HumaLOG INSULIN (NovoLOG) PER UNIT SC SCH ×4 (07:12→21:00)
[2019-05-04] MEDS: ADVAIR HFA 115/21MCG INHALER INH SCH ×2 (07:36→21:00)
--- NOTE | 2019-05-04 08:38 | IPN ---
DATE: 05/04/2019 CHIEF COMPLAINT: Post admission day one right intertrochanteric hip fracture. HISTORY OF PRESENT ILLNESS: A 74-year-old man seen today in followup morning after he was admitted for right hip fracture. He is in the intensive care unit (ICU) for acute kidney injury and electrolyte monitoring. His potassium was elevated at 6.8 yesterday. He is being followed by the hospitalist service. This morning, he is alert and times three. He is answers questions appropriately and asks all appropriate questions regards to wait times and surgery as well as recovery associated with this. Otherwise no concerns from the nursing staff. PHYSICAL EXAMINATION: Vital Signs: This morning reveal blood pressure 95/54, pulse [id number], temperature 98.5, pulse oximetry 90% on 1 liter nasal prongs. Respiratory rate 20. The patient and oriented times three. Mood and affect pleasant and positive. Laying supine in bed. He is able wiggle his toes, dorsiflex, plantar flex foot. Leg is warm well perfused with good pedal pulses. Normal sensation in the dorsum and plantar aspect of the foot. Laboratory history reveals high potassium history of 6.8 trending downwards today to 5.7. Creatinine remains elevated at 2.85. ASSESSMENT/PLAN: I offered him the option to remain fasting on the chance that his electrolytes and kidney function normalized throughout the day and he is cleared by the hospitalist, as well as the anesthesiologist, to receive an anesthetic in order to perform nailing of his right hip fracture. I have communicated to the patient as well as the nursing staff as well as the on-call surgeon, Dr. Hernandez about this man, as I will, at this point, hand him over to the on-call surgeon for the weekend. He would like to remain fasting and we will hold his Lovenox for today in case surgery is performed.
[2019-05-04] MEDS ORDERED: ENOXAPARIN 30 MG/0.3 ML SYR (J1650) SC SCH (09:00)
[2019-05-04] MEDS ORDERED: FUROSEMIDE 20 MG TAB PO SCH (09:00)
[2019-05-04] MEDS ORDERED: FLUBLOK(EGG FREE)(QUAD)INFLUENZA VACC 0.5ML SYRINGE (90682)18YRS&OLDER IM ONE (09:00)
[2019-05-04] MEDS: amLODIPine 5 MG TAB PO SCH (09:00)
[2019-05-04] MEDS ORDERED: ASPIRIN 81 MG ENTERIC TAB PO SCH ×2 (09:00)
[2019-05-04] MEDS ORDERED: PREVNAR 13 VACCINE SYRINGE (CPT CODE:90670) IM ONE (09:00)
[2019-05-04] MEDS ORDERED: ENOXAPARIN 40 MG/0.4 ML SYRINGE (J1650) SC SCH (09:00)
[2019-05-04] MEDS ORDERED: LISINOPRIL 10 MG TAB PO SCH (09:00)
[2019-05-04] MEDS: busPIRone 5 MG TAB PO SCH ×2 (10:01→21:00)
[2019-05-04] MEDS: VITAMIN D 1,000 INTERNATIONAL UNITS TABLET PO SCH (10:02)
[2019-05-04] MEDS: predniSONE 10 MG TAB PO SCH (10:02)
[2019-05-04] MEDS: ATENOLOL 50 MG TAB PO SCH (10:02)
[2019-05-04] MEDS: OMEPRAZOLE 20 MG CAP PO SCH (10:02)
[2019-05-04] MEDS: CitaloPRAM (CeleXA) 20 MG TAB PO SCH (10:03)
[2019-05-04] MEDS: FOLIC ACID 1 MG TAB PO SCH (10:03)
[2019-05-04] MEDS: ASCORBIC ACID 500 MG TAB PO SCH ×3 (10:03→21:00)
[2019-05-04] MEDS: PROPYLTHIOURACIL 50 MG TAB PO SCH ×2 (10:03→21:00)
[2019-05-04] MEDS: traMADol 50 MG TAB PO PRN (10:05)
[2019-05-04] MEDS ORDERED: MIRALAX *UNIT DOSE* 17GM PACKET PO ONE (11:00)
[2019-05-04 13:39] LABS: CREATININE FOR GFR 2.61 MG/DL (0.70-1.30); GLOMERULAR FILTRATION RATE 25.8 (>42); POTASSIUM SERUM 5.6 MEQ/L (3.5-5.1)
[2019-05-04] MEDS ORDERED: HumuLIN R (REGULAR) INSULIN (NovoLIN R) **100U/ML** PER UNIT SC ONE (14:30)
[2019-05-04] MEDS: NS 1,000 ML IV SCH ×2 (14:42→22:36)
[2019-05-04] MEDS ORDERED: dexameTHASONE 4 MG/ML 1ML VIAL (J1100) As Ordered ONE (15:52)
[2019-05-04] MEDS ORDERED: PROPOFOL 500 MG/50 ML VIAL As Ordered ONE (15:52)
[2019-05-04] MEDS ORDERED: LIDOCAINE 2% INJ 100 MG/5 ML SDV (FOR ANES.) As Ordered ONE (15:52)
[2019-05-04] MEDS ORDERED: ONDANSETRON 4MG/2ML VIAL (J2405) As Ordered ONE (15:53)
[2019-05-04 16:02] LABS: CREATININE,RANDOM URINE 43.1 MG/DL
[2019-05-04 16:33] LABS: CALCIUM LEVEL 7.8 MG/DL (8.8-10.2); CREATININE FOR GFR 2.47 MG/DL (0.70-1.30); GLOMERULAR FILTRATION RATE 27.5 (>42); POTASSIUM SERUM 5.5 MEQ/L (3.5-5.1)
--- NOTE | 2019-05-04 17:15 | IPNPDOC ---
Text Note Date of Service The patient was seen on 05/04/19. NOTE Subjective: -Feels well, "bored" waiting for surgery -1BM this mid PM Objective: Physical Examination Vitals: see below. General Exam: Alert, No Acute Distress Eye Exam: PERRLA, Conjunctiva & lids normal, EOMI ENT Exam: Atraumatic, MMM, normal posterior oropharynx Neck Exam: thick, supple, no JVD, no thyromegaly Chest Exam: Clear to auscultation, Normal air movement Heart Exam: Rate Normal, Regular Rhythm, Normal S1, Normal S2; no Murmurs or Rubs Abdomen Exam: Normal bowel sounds, Obese, Soft, nontender, L sided ostomy with brown well formed stool Extremity Exam: No edema, warm and well perfused, 2+ DP pulses Skin Exam: Nl turgor and temperature; no Breakdown or Lesions Neuro Exam: Normal Speech, RLE exam limited by pain, LLE 5/5 strength, Sensation Intact, Cranial Nerves 3-12 NL Psych Exam: Mental status NL, Mood NL, Oriented x 3 Labs: reviewed. Has an IRMA initially in the 3s --> mildly improved to 2.5. Also hyperK to 6 --> s/p kayexalate x 3 doses, lasix 20 PO, insulin/glucose --> now 5.5. Spoke with anesthesia that OK'd proceeding with hip surgery. Imaging: Reviewed. CXR with no pulmonary congestion or cardiopulmonary acute pathology. EKG: NSR, stable from prior Assessment/Plan 74 yo man who presented to the ED after sustaining a mechanical fall while taking out his dog and found to have a comminuted intertrochanteric fracture of the right hip pending surgery this evening whose course was c/b IRMA that is improving and hyperkalemia that has mildly improved to 5.5 that has been deemed satisfactory to proceed with surgery at this time by anesthesia. From a medical perspective he is cleared for his hip surgery. Preoperative Assessment -ARISCAT Score to predict risk of pulmonary complications after surgery - 14 points, Low risk with 1.6% risk of in-hospital post-op pulmonary complications. -ASA Physical Status pre-op classification - ASA stage II -Revised Cardiac Index: 2 points, Class III Risk, 10.1 % 30-day risk of , DE, or cardiac arrest -received ancef dose per surgery Hyperkalemia: -NSR EKG stable from prior nonspecific TWI. -no chest pain, palpitations, hypoxemia -K now 5.5, cleared for surgery by anesthesia IRMA: -mild improvement with fluids -nephrology consulted, will follow up recs -pending urine lytes -holding ACEi -strict I/Os Right hip fracture pain management post op: Thus far has been on the following, may require adjustment -oxy 5Q4 PRN for severe pain -Tramadol 50Q6H PRN for moderate pain -tylenol for mild pain Cardiac meds and hypertension to resume tomorrow AM: -holding lisinopril 10 -amlodipine 5 -alenolol 50 -hold ASA81 pending ortho recs -lasix 20 QD -simvastatin 20 COPD: -Advair -PRN duonebs if required after surgery Psych meds -Buspar 15 BID -Celexa 20 -Elavil 25 QHS Neuropathy: -keara 100 QHS -Elavil 25 QHS Hypothyroidism: -PTU 50 -pred 10 Osteopenia: -Vit d 5000U QD -Alendronate 70Qweekly, next due on 05/06/2019 DVT prophylaxis: lovenox held, post op will be per ortho recs Diet: per post op course VS,Fishbone, I+O VS, Fishbone, I+O Laboratory Tests 05/03/19 21:49 Red Blood Count 3.50 L, Mean Corpuscular Volume 97.1 H, Mean Corpuscular Hemoglobin 31.7, Mean Corpuscular Hemoglobin Concent 32.6, Red Cell Distribution Width 13.4 05/03/19 23:51 Calcium Level 7.2 L 05/04/19 01:42 Calcium Level 7.2 L, Total Creatine Kinase 68 05/04/19 06:19 Red Blood Count 3.28 L, Mean Corpuscular Volume 97.9 H, Mean Corpuscular Hemoglobin 31.7, Mean Corpuscular Hemoglobin Concent 32.4, Red Cell Distribution Width 13.5, Calcium Level 7.5 L 05/04/19 12:56 Calcium Level 8.0 L 05/04/19 16:00 Calcium Level 7.8 L Vital Signs Date Time Temp Pulse Resp B/P (MAP) Pulse Ox O2 Delivery O2 Flow Rate FiO2 05/04/19 15:59 122 21 93 05/04/19 12:55 125/61 (82) 05/04/19 11:57 99.5 1.0 05/03/19 17:10 Room Air I&O- Last 24 Hours up to 6 AM 05/04/19 06:00 Intake Total 1740 ml Output Total 0 ml Balance 1740 ml CORINA RAMIREZ MD May 04, 2019 17:15
[2019-05-04] MEDS ORDERED: ceFAZolin 2 GM/D5W 50 ML IV BAG (J0690 PER 500MG) As Ordered ONE (17:41)
[2019-05-04] MEDS ORDERED: ceFAZolin 1GM INJ (J0690 PER 500MG) As Ordered ONE (18:22)
[2019-05-04] MEDS ORDERED: MIDAZOLAM INJ 2 MG/2 ML VIAL (J2250) As Ordered ONE (18:45)
[2019-05-04] MEDS ORDERED: KETAMINE HCL 200 MG/20 ML VIAL As Ordered ONE (18:45)
[2019-05-04] MEDS ORDERED: PHENYLephrine HCL 500 MCG/5 ML (100MCG/ML) SYRINGE (J2370) As Ordered ONE (19:11)
[2019-05-04] MEDS ORDERED: VASOPRESSIN INJ 20 UNITS/ML VIAL As Ordered ONE (19:33)
[2019-05-04] MEDS: SIMVASTATIN 20 MG TAB PO SCH (21:00)
[2019-05-04] MEDS: GABAPENTIN 100 MG CAP PO SCH (21:00)
[2019-05-04] MEDS: AMITRIPTYLINE 25 MG TAB PO SCH (21:00)
[2019-05-04] MEDS ORDERED: ONDANSETRON 4MG/2ML VIAL (J2405) IV PRN (21:30)
[2019-05-04] MEDS ORDERED: MEPERIDINE INJ 25 MG/ML VIAL (J2175) As Ordered ONE (21:30)
[2019-05-04] MEDS ORDERED: LR 1,000 ML IV SCH (21:30)
[2019-05-04] MEDS ORDERED: fentaNYL 100 MCG/2 ML INJECTION (J3010) IV PRN (21:30)
[2019-05-04] MEDS ORDERED: MEPERIDINE INJ 25 MG/ML VIAL (J2175) IV PRN (21:30)
--- NOTE | 2019-05-04 23:23 | ECGEPIP ---
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 Compared the 4 tracings in the system Electronically Signed on 05-04-2019 23:22:41 EDT by Babar Rodriguez
[2019-05-05] VITALS (7 sets, daily range): BP systolic 130–157; BP diastolic 64–87
[2019-05-05] MEDS: ceFAZolin SOD 2 GM in IV 1 EA IV SCH ×2 (02:19→09:18)
[2019-05-05 05:23] LABS: HEMATOCRIT 31.6 % (42.0-52.0); HEMOGLOBIN 10.3 g/dl (13.5-17.5); MEAN CORPUSCULAR HEMOGLOBIN 31.5 pg (27.0-33.0); MEAN CORPUSCULAR HGB CONC 32.6 g/dl (32.0-36.5); MEAN CORPUSCULAR VOLUME 96.6 fl (80.0-96.0); PLATELET COUNT, AUTOMATED 145 10^3/uL (150-450); RED BLOOD COUNT 3.27 10^6/uL (4.30-6.10); WHITE BLOOD COUNT 11.5 10^3/uL (4.0-10.0)
[2019-05-05 05:45] LABS: CALCIUM LEVEL 7.6 MG/DL (8.8-10.2); CREATININE FOR GFR 1.94 MG/DL (0.70-1.30); GLOMERULAR FILTRATION RATE 36.3 (>42); MAGNESIUM LEVEL 1.2 MG/DL (1.8-2.4); POTASSIUM SERUM 5.9 MEQ/L (3.5-5.1)
[2019-05-05] MEDS ORDERED: CALCIUM GLUCONATE 1,000 MG in D5W MINI-BAG PLUS 100 ML IV ONE (07:00)
[2019-05-05] MEDS ORDERED: SODIUM CHLORIDE 0.9% 500 ML IV ONE (07:00)
[2019-05-05] MEDS ORDERED: MAG SULF 1GM/100ML (MAG RUN) 1 GM in IV 1 EA IV ONE (07:00)
[2019-05-05] MEDS: HumaLOG INSULIN (NovoLOG) PER UNIT SC SCH ×4 (07:36→20:21)
[2019-05-05] MEDS: NS 1,000 ML IV SCH (07:37)
[2019-05-05] MEDS ORDERED: FUROSEMIDE 40 MG TAB PO ONE (07:45)
--- NOTE | 2019-05-05 07:56 | IPNPDOC ---
Text Note Date of Service The patient was seen on 05/05/19. NOTE Subjective: -Feels well, has R hip post op but with adequate pain control and not moving much Interim events: -persistent hyperK, asymptomatic, stable telemetry -overnight had Mag replacement and Ca gluconate for hyperK -Has been on 125cc/hr NS -was placed on xarelto per ortho prophylaxis Objective: Physical Examination Vitals: see below. General Exam: Alert, No Acute Distress Eye Exam: PERRLA, Conjunctiva & lids normal, EOMI ENT Exam: Atraumatic, MMM, normal posterior oropharynx Neck Exam: thick, supple, no JVD, no thyromegaly Chest Exam: Clear to auscultation, Normal air movement Heart Exam: Rate Normal, Regular Rhythm, Normal S1, Normal S2; no Murmurs or Rubs Abdomen Exam: Normal bowel sounds, Obese, Soft, nontender, L sided ostomy with brown well formed stool Extremity Exam: No edema, warm and well perfused, 2+ DP pulses Skin Exam: Nl turgor and temperature; no Breakdown or Lesions, R hip with intact stitches, no bleeding Neuro Exam: Normal Speech, RLE exam limited by pain, LLE 5/5 strength, Sensation Intact, Cranial Nerves 3-12 NL Psych Exam: Mental status NL, Mood NL, Oriented x 3 Labs: reviewed. Has an improving IRMA and persistent hyperkalemia. Was also hypomagnesemic this morning that as repleted by the night team. Imaging: Reviewed. 05/03 CXR with no pulmonary congestion or cardiopulmonary acute pathology. EKG: NSR, stable from prior Assessment/Plan 74 yo man who presented to the ED after sustaining a mechanical fall while taking out his dog and found to have a comminuted intertrochanteric fracture of the right hip s/p surgery without complications, whose overall course has been c/b IRMA that is now improving and persistent hyperkalemia. R hip fracture: -s/p R hip surgery 05/04/2019 -remains on ancef per ortho -pain well controlled with oxy 5Q4 PRN, tramadol 50Q6H PRN for moderate pain and tylenol for mild pain Hyperkalemia: -NSR EKG stable from prior -no chest pain, palpitations, hypoxemia -hyperkalemia persists this morning s/p Ca gluconate -lasix 40 PO x 1 -Increased bowel regimen to senna/colace BID and BID miralax in the setting of ongoing constipation -Has 1PM BMP to monitor hyperK IRMA: -mild improvement with fluids, stopped fluids this morning -nephrology consulted, will follow up recs -follow up urine lytes -holding ACEi -strict I/Os Cardiac meds and hypertension: -holding lisinopril 10 -amlodipine 5 -alenolol 50 -hold [id number] pending ortho recs -lasix 20 QD -simvastatin 20 COPD: -Advair -PRN duonebs if required after surgery Psych meds -Buspar 15 BID -Celexa 20 -Elavil 25 QHS Neuropathy: -keara 100 QHS -Elavil 25 QHS Hypothyroidism: -PTU 50 -pred 10 Osteopenia: -Vit d 5000U QD -Alendronate 70Qweekly, next due on 05/06/2019 DVT prophylaxis: lxarelto per ortho recs Diet: regular diet VS,Fishbone, I+O VS, Fishbone, I+O Laboratory Tests 05/04/19 12:56 Calcium Level 8.0 L 05/04/19 16:00 Calcium Level 7.8 L 05/05/19 04:47 Calcium Level 7.6 L, Red Blood Count 3.27 L, Mean Corpuscular Volume 96.6 H, Mean Corpuscular Hemoglobin 31.5, Mean Corpuscular Hemoglobin Concent 32.6, Red Cell Distribution Width 13.6 Vital Signs Date Time Temp Pulse Resp B/P (MAP) Pulse Ox O2 Delivery O2 Flow Rate FiO2 05/05/19 04:00 4.0 05/05/19 04:00 97.9 117 16 136/82 (100) 96 05/03/19 17:10 Room Air I&O- Last 24 Hours up to 6 AM 05/05/19 05:59 Intake Total 1840 ml Output Total 2300 ml Balance -460 ml CORINA RAMIREZ MD May 05, 2019 07:56
[2019-05-05] MEDS: ADVAIR HFA 115/21MCG INHALER INH SCH ×2 (07:57→19:15)
--- NOTE | 2019-05-05 08:02 | REP ---
Right hip intraoperative fluoroscopic views: A series of 28 intraoperative fluoroscopic views are performed during gamma nail internal fixation. The final views demonstrate the fracture and orthopedic hardware to be in satisfactory positions alignment. Fluoroscopic exposure time is 3 minutes and 36 seconds. The fluoroscopic images are performed with last image hold technology and require no additional radiation. Electronically Signed by Yong Nagel MD 05/05/2019 07:53 A
--- NOTE | 2019-05-05 08:09 | REP ---
Portable right hip four views: There is gamma nail fixation of an intertrochanteric fracture. The fracture and hardware are in satisfactory positions alignment. Skin rhett are incidentally identified. Electronically Signed by Yong Nagel MD 05/05/2019 07:59 A
[2019-05-05] MEDS: SENOKOT S TAB PO SCH ×2 (09:00→20:21)
[2019-05-05] MEDS: MIRALAX *UNIT DOSE* 17GM PACKET PO SCH ×2 (09:00→20:19)
[2019-05-05] MEDS ORDERED: MIRALAX *UNIT DOSE* 17GM PACKET PO SCH (09:00)
[2019-05-05] MEDS: PROPYLTHIOURACIL 50 MG TAB PO SCH ×2 (09:16→22:11)
[2019-05-05] MEDS: MOM 30ML SUSPENSION UDC PO SCH (09:16)
[2019-05-05] MEDS: predniSONE 10 MG TAB PO SCH (09:17)
[2019-05-05] MEDS: CitaloPRAM (CeleXA) 20 MG TAB PO SCH (09:17)
[2019-05-05] MEDS: busPIRone 5 MG TAB PO SCH ×2 (09:17→20:19)
[2019-05-05] MEDS: OMEPRAZOLE 20 MG CAP PO SCH (09:17)
[2019-05-05] MEDS: ASCORBIC ACID 500 MG TAB PO SCH ×3 (09:17→20:19)
[2019-05-05] MEDS: VITAMIN D 1,000 INTERNATIONAL UNITS TABLET PO SCH (09:18)
[2019-05-05] MEDS: FOLIC ACID 1 MG TAB PO SCH (09:18)
[2019-05-05] MEDS: ATENOLOL 50 MG TAB PO SCH (09:18)
[2019-05-05] MEDS: amLODIPine 5 MG TAB PO SCH (09:19)
[2019-05-05] MEDS: oxyCODONE 5MG TAB PO PRN ×2 (09:20→16:55)
[2019-05-05] MEDS: traMADol 50 MG TAB PO PRN ×2 (11:23→20:21)
[2019-05-05] MEDS: PATIROMER SORBITEX CALCIUM 8.4 GM POWDER PACKET (VELTASSA) PO SCH (12:00)
[2019-05-05 13:28] LABS: CALCIUM LEVEL 8.1 MG/DL (8.8-10.2); CREATININE FOR GFR 1.95 MG/DL (0.70-1.30); GLOMERULAR FILTRATION RATE 36.1 (>42); POTASSIUM SERUM 4.9 MEQ/L (3.5-5.1)
[2019-05-05] MEDS ORDERED: ATENOLOL 25 MG TAB PO ONE (15:00)
--- NOTE | 2019-05-05 15:10 | REP ---
Renal ultrasound: The right kidney measures 12.9 x 5.3 x 5.2 cm. The left kidney measures 11.7 x 5.3 x 6.3 cm. The kidneys are normal size. Renal cortical echogenicity is normal bilaterally. There is no hydronephrosis on the right on the left. There are no renal calculi on the right on the left. There is a 2.9 cm hypodensity in the left renal lower pole, this has a similar to the and abdomen/pelvis CT dated 04/04/2017 and is likely a left renal cyst. There are no solid renal masses. The study is performed at the patient's bedside and decubitus views are not possible. Bladder: The bladder is under distended and cannot be further evaluated. Impression: Left renal 2.9 cm lower pole hypodensity, likely a cyst. Otherwise, negative renal ultrasound. Electronically Signed by Yong Nagel MD 05/05/2019 03:02 P
[2019-05-05 15:32] LABS: MAGNESIUM LEVEL 1.6 MG/DL (1.8-2.4)
[2019-05-05] MEDS: RIVAROXABAN 10 MG TAB (XARELTO) PO SCH (16:55)
--- NOTE | 2019-05-05 17:42 | CR ---
DATE OF CONSULTATION: 05/05/2019 REQUESTING PHYSICIAN: Kimberley Chauhan M.D. REASON FOR CONSULTATION: Hyperkalemia and acute renal failure. HISTORY OF PRESENT ILLNESS: Mr. Higgins is a 74-year-old gentleman who was admitted to [facility] on May 04 due to a right hip fracture because of a fall at home. The patient needed to go to operating room (OR) for surgery; however, he had hyperkalemia and acute renal failure, due to which a nephrology consultation was requested. We attempted to see the patient yesterday afternoon; however, by that time the patient had already gone to the OR. Prior to this, case was discussed with the admitting physician, and recommendations were given over the phone. The patient is seen this morning in intensive care unit. PAST MEDICAL HISTORY: 1. Longstanding type 2 diabetes. 2. Hypertension. 3. Depression. 4. Chronic obstructive pulmonary disease (COPD). 5. Dyslipidemia. 6. Hypothyroidism. 7. History of chronic kidney disease. 8. History of anemia. 9. History of duodenal ulcer in the past. MEDICATIONS: Home medications included: metformin, atenolol, omeprazole, citalopram, buspirone, amlodipine, vitamin B12, lisinopril, folic acid, furosemide, propylthiouracil, gabapentin, simvastatin, Requip, amitriptyline, baby aspirin 81 mg, vitamin C and vitamin D. He also uses Advair, Combivent, albuterol nebulizer, prednisone, tramadol, and Fosamax. ALLERGIES: The patient has allergy to LEVAQUIN and AZITHROMYCIN. PAST SURGICAL HISTORY: Significant for: 1. Right eye laser surgery. 2. Gallbladder removal. 3. Partial colectomy with a diverting colostomy. PERSONAL AND SOCIAL HISTORY: The patient is retired. He lives with his significant other. He does not use any drugs or alcohol. He uses an electric cart to go shopping and a four-wheel walker at home. FAMILY HISTORY: Negative for renal problems. Noncontributory for this admission. REVIEW OF SYSTEMS: The patient is a good historian. He denies any fever or chills. He fell at home when he caught his foot in the rug. Denies any loss of consciousness. Ears, nose, and throat are unremarkable. Cardiovascular system significant for hypertension and chronic leg edema. He denies any chest pain. Respiratory system negative for cough or hemoptysis. Gastrointestinal (GI) system is negative for nausea, vomiting, or diarrhea. He has a diverting colostomy. Genitourinary () system is negative for dysuria or hematuria. Endocrine system is significant for hyperthyroidism and type 2 diabetes. Psychosocial system is significant for anxiety and depression. Neurological system is significant for restless legs. He denies any seizures or stroke. Hematological system negative for any chronic anticoagulation. He does have chronic anemia. PHYSICAL EXAMINATION: Temperature 98 degrees Fahrenheit, heart rate about 124 per minute, respiratory rate 20 per minute, blood pressure 140/70 mm of mercury, and oxygen saturation 94% on 1 liter oxygen. Head is atraumatic. Neck is supple and jugular venous distention (JVD) difficult to be assessed. There is no oral thrush or ulcers, and mucous membranes are moist and healthy. Heart sounds are tachycardiac but regular. Sinus rhythm noted on the monitor. Lungs have slightly diminished breath sounds but no wheezing or rales. Abdomen soft and nontender, and bowel sounds are normal. Extremities without any cyanosis or clubbing. He had a right hip surgery done, and surgical incision is intact. Dressing is dry. Neurologically, he is awake, alert, and oriented times three. LABORATORY DATA: On admission, his hemoglobin was 12.6 and hematocrit 38.6. Today his hemoglobin is 10.3, hematocrit 31.6, and platelets 145. WBC count is 11.5. His initial BUN was 34 and creatinine 2.55 on May 03. Potassium level was 6.0. Later, a repeat potassium was 6.8, and BUN went up to 38 and creatinine 2.92. 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 Gradually, potassium came down to 5.5 yesterday, and today it is up to 5.9 again. Sodium is 136, CO2 of 23, BUN 33, and creatinine 1.94. Glucose 203 and calcium 7.6. Magnesium level is 1.2. PROBLEMS: 1. Acute renal failure superimposed on chronic kidney disease. He most likely has underlying chronic kidney disease and had acute renal failure, which seems to be prerenal. We did a bedside bladder scan and did not find any significant urinary retention. His kidney function has improved with IV fluid hydration, and I would recommend to continue with IV hydration even at 50-60 mL per hour, which will also help with his hyperkalemia. He is being encouraged to increase his oral intake also. Renal ultrasound should be obtained. 2. Hyperkalemia, most likely related to acute and chronic renal failure and hematoma caused by his right hip fracture. The patient has a colostomy, due to which Kayexalate did not work very well. He will be given a dose of Veltassa 16.8 grams today, and we will check his electrolytes again tomorrow morning. We will give him daily dose of Veltassa if needed until his potassium level improves. He was on angiotensin-converting enzyme (PAUL) inhibitor at home and should be kept off PAUL inhibitor due to acute renal failure and hyperkalemia. 3. Hypertension and tachycardia. The patient is still quite tachycardiac, and his beta devendra should be increased. Other antihypertensives, including his PAUL inhibitor and amlodipine, can be stopped out or cut down. 4. Hypomagnesemia. I would recommend to replace his magnesium with intravenous magnesium sulfate. Magnesium level should be checked again tomorrow morning. Thank you for involving me in the care of Mr. Higgins. I will follow him along with you.
[2019-05-05] MEDS: AMITRIPTYLINE 25 MG TAB PO SCH (20:19)
[2019-05-05] MEDS: SIMVASTATIN 20 MG TAB PO SCH (20:19)
[2019-05-05] MEDS: GABAPENTIN 100 MG CAP PO SCH (20:19)
[2019-05-05] MEDS: ACETAMINOPHEN TAB 650MG DOSE (2X325MG) PO PRN (20:21)
[2019-05-06] MEDS: oxyCODONE 5MG TAB PO PRN ×4 (01:10→17:13)
[2019-05-06] MEDS: rOPINIRole 2MG TAB PO SCH ×2 (02:06→20:57)
[2019-05-06 06:00] VITALS: BP 156/90
[2019-05-06] MEDS ORDERED: ALENDRONATE 35MG TABLET PO SCH ×2 (07:00)
[2019-05-06] MEDS: VITAMIN D 1,000 INTERNATIONAL UNITS TABLET PO SCH (07:40)
[2019-05-06] MEDS: OMEPRAZOLE 20 MG CAP PO SCH (07:40)
[2019-05-06] MEDS: amLODIPine 5 MG TAB PO SCH (07:40)
[2019-05-06] MEDS: PROPYLTHIOURACIL 50 MG TAB PO SCH ×2 (07:40→20:59)
[2019-05-06 07:41] LABS: HEMATOCRIT 27.7 % (42.0-52.0); HEMOGLOBIN 8.9 g/dl (13.5-17.5); MEAN CORPUSCULAR HEMOGLOBIN 30.7 pg (27.0-33.0); MEAN CORPUSCULAR HGB CONC 32.1 g/dl (32.0-36.5); MEAN CORPUSCULAR VOLUME 95.5 fl (80.0-96.0); PLATELET COUNT, AUTOMATED 161 10^3/uL (150-450); WHITE BLOOD COUNT 13.3 10^3/uL (4.0-10.0)
[2019-05-06] MEDS: SENOKOT S TAB PO SCH ×2 (07:41→21:00)
[2019-05-06] MEDS: CitaloPRAM (CeleXA) 20 MG TAB PO SCH (07:41)
[2019-05-06] MEDS: ATENOLOL 25 MG TAB PO SCH (07:41)
[2019-05-06] MEDS: FOLIC ACID 1 MG TAB PO SCH (07:43)
[2019-05-06] MEDS: predniSONE 10 MG TAB PO SCH (07:43)
[2019-05-06] MEDS: MIRALAX *UNIT DOSE* 17GM PACKET PO SCH ×2 (07:43→21:00)
[2019-05-06] MEDS: MOM 30ML SUSPENSION UDC PO SCH (07:43)
[2019-05-06] MEDS: ASCORBIC ACID 500 MG TAB PO SCH ×3 (07:43→20:57)
[2019-05-06] MEDS: busPIRone 5 MG TAB PO SCH ×2 (07:43→19:34)
[2019-05-06] MEDS: HumaLOG INSULIN (NovoLOG) PER UNIT SC SCH ×4 (07:44→21:00)
[2019-05-06] MEDS: ADVAIR HFA 115/21MCG INHALER INH SCH ×2 (07:51→21:00)
[2019-05-06 07:56] LABS: CALCIUM LEVEL 8.4 MG/DL (8.8-10.2); CREATININE FOR GFR 1.52 MG/DL (0.70-1.30); GLOMERULAR FILTRATION RATE 48.1 (>42); POTASSIUM SERUM 5.2 MEQ/L (3.5-5.1)
[2019-05-06] MEDS ORDERED: FUROSEMIDE 20 MG TAB PO SCH (09:00)
[2019-05-06] MEDS ORDERED: FLUBLOK(EGG FREE)(QUAD)INFLUENZA VACC 0.5ML SYRINGE (90682)18YRS&OLDER IM ONE (09:00)
[2019-05-06] MEDS ORDERED: PREVNAR 13 VACCINE SYRINGE (CPT CODE:90670) IM ONE (09:00)
[2019-05-06] MEDS: traMADol 50 MG TAB PO PRN ×2 (11:28→20:58)
[2019-05-06] MEDS: PATIROMER SORBITEX CALCIUM 8.4 GM POWDER PACKET (VELTASSA) PO SCH (11:28)
[2019-05-06] MEDS: ACETAMINOPHEN TAB 650MG DOSE (2X325MG) PO PRN ×2 (13:15→21:00)
[2019-05-06 14:00] VITALS: BP 130/62
--- NOTE | 2019-05-06 14:31 | IPNPDOC ---
Text Note Date of Service The patient was seen on 05/06/19. NOTE Subjective: Patient complains of insomnia and depressed mood. Patient stated that he wants to be discharged home, he explained: "I have a lot of things to do" Objective: General in moderate distress HEENT: PERRLA, EOMI CV: S1-S2 Lungs: Clear to auscultation bilaterally Abdomen: Nontender, nondistended Extremity: Status post right hip surgery, dressing intact. No swelling, no cyanosis of lower extremities Neuro: Nonfocal, cranial nerves from 2 through 12 intact Renal ultrasound: The right kidney measures 12.9 x 5.3 x 5.2 cm. The left kidney measures 11.7 x 5.3 x 6.3 cm. The kidneys are normal size. Renal cortical echogenicity is normal bilaterally. There is no hydronephrosis on the right on the left. There are no renal calculi on the right on the left. There is a 2.9 cm hypodensity in the left renal lower pole, this has a similar to the and abdomen/pelvis CT dated 04/04/2017 and is likely a left renal cyst. There are no solid renal masses. The study is performed at the patient's bedside and decubitus views are not possible. Bladder: The bladder is under distended and cannot be further evaluated. Impression: Left renal 2.9 cm lower pole hypodensity, likely a cyst. Otherwise, negative renal ultrasound Assessment and plan Patient is 74 years old male with past medical history of depression, diabetes, hypertension, COPD presented hospital with right hip fracture. After he fractured patient developed hyperkalemia associated with acute renal failure. Acute renal failure superimposed on chronic kidney disease. Most likely prerenal Improved, continued gentle IV hydration 60cc per h Hyperkalemia Secondary to acute on chronic renal failure and hematoma secondary to right hip fracture He received a dose of patiromer yesterday. Continue treatment His potassium is still elevated and 5.2 today. Renal ultrasound negative for hydronephrosis [employer] Surveying Technician team follows him Hypertension and tachycardia The dose of atenolol was increased to 75 mg, continue to monitor Hypomagnesemia continue to monitor Insomnia Ramelteon Depression Continue home meds Deconditioning PT/OT continuing treatment and evaluation before discharge VS,Darin, I+O VS, Jessiee, I+O Laboratory Tests 05/06/19 07:18 Red Blood Count 2.90 L, Mean Corpuscular Volume 95.5, Mean Corpuscular Hemoglo bin 30.7, Mean Corpuscular Hemoglobin Concent 32.1, Red Cell Distribution Width 13.7, Calcium Level 8.4 L Vital Signs Date Time Temp Pulse Resp B/P (MAP) Pulse Ox O2 Delivery O2 Flow Rate FiO2 05/06/19 13:16 18 05/06/19 10:48 2.0 05/06/19 07:42 92 05/06/19 07:41 97 156/90 05/06/19 06:00 97.8 05/03/19 17:10 Room Air I&O- Last 24 Hours up to 6 AM 05/06/19 06:00 Intake Total 2140 ml Output Total 2900 ml Balance -760 ml JERRY SANABRIA DO May 06, 2019 14:31
[2019-05-06] MEDS ORDERED: IPRATROPIUM 0.5MG/ALBUTEROL 2.5MG INH SOL UD 3ML (DUONEB)(J7620) INH PRN (15:15)
[2019-05-06] MEDS ORDERED: ALBUTEROL SULFATE 2.5 MG/0.5 ML INH NEB SOLN INH PRN (15:15)
[2019-05-06 15:21] LABS: MAGNESIUM LEVEL 1.7 MG/DL (1.8-2.4)
[2019-05-06] MEDS: NS 1,000 ML IV SCH (15:36)
[2019-05-06] MEDS: RIVAROXABAN 10 MG TAB (XARELTO) PO SCH (17:12)
[2019-05-06] MEDS: SIMVASTATIN 20 MG TAB PO SCH (20:57)
[2019-05-06] MEDS: AMITRIPTYLINE 25 MG TAB PO SCH (20:57)
[2019-05-06] MEDS: GABAPENTIN 300 MG CAP PO SCH (20:57)
[2019-05-06] MEDS: RAMELTEON 8 MG TAB (ROZEREM) PO SCH (20:57)
[2019-05-06 22:00] VITALS: BP 161/71
[2019-05-07] MEDS: NS 1,000 ML IV SCH ×2 (05:09→20:34)
[2019-05-07] MEDS: traMADol 50 MG TAB PO PRN ×2 (05:10→12:28)
[2019-05-07] MEDS: ACETAMINOPHEN TAB 650MG DOSE (2X325MG) PO PRN ×3 (05:11→20:33)
[2019-05-07 05:54] LABS: HEMATOCRIT 26.6 % (42.0-52.0); HEMOGLOBIN 8.7 g/dl (13.5-17.5); MEAN CORPUSCULAR HEMOGLOBIN 31.1 pg (27.0-33.0); MEAN CORPUSCULAR HGB CONC 32.7 g/dl (32.0-36.5); PLATELET COUNT, AUTOMATED 181 10^3/uL (150-450); WHITE BLOOD COUNT 11.4 10^3/uL (4.0-10.0)
[2019-05-07 06:00] VITALS: BP 151/60
[2019-05-07 06:20] LABS: BLOOD UREA NITROGEN 29 MG/DL (7-18); CALCIUM LEVEL 8.4 MG/DL (8.8-10.2); CARBON DIOXIDE LEVEL 27 MEQ/L (21-32); CHLORIDE LEVEL 101 MEQ/L (98-107); CREATININE FOR GFR 1.08 MG/DL (0.70-1.30); GLOMERULAR FILTRATION RATE > 60.0 (>42); GLUCOSE, FASTING 128 MG/DL (70-100); MAGNESIUM LEVEL 1.4 MG/DL (1.8-2.4); POTASSIUM SERUM 5.2 MEQ/L (3.5-5.1); SODIUM LEVEL 133 MEQ/L (136-145)
[2019-05-07] MEDS: ADVAIR HFA 115/21MCG INHALER INH SCH ×2 (07:34→19:37)
[2019-05-07] MEDS: OMEPRAZOLE 20 MG CAP PO SCH (08:05)
[2019-05-07] MEDS: VITAMIN D 1,000 INTERNATIONAL UNITS TABLET PO SCH (08:05)
[2019-05-07] MEDS: busPIRone 5 MG TAB PO SCH ×2 (08:05→20:32)
[2019-05-07] MEDS: MIRALAX *UNIT DOSE* 17GM PACKET PO SCH ×2 (08:05→20:33)
[2019-05-07] MEDS: PROPYLTHIOURACIL 50 MG TAB PO SCH ×2 (08:05→20:33)
[2019-05-07] MEDS: MOM 30ML SUSPENSION UDC PO SCH (08:05)
[2019-05-07] MEDS: SENOKOT S TAB PO SCH ×2 (08:06→20:33)
[2019-05-07] MEDS: FOLIC ACID 1 MG TAB PO SCH (08:06)
[2019-05-07] MEDS: ATENOLOL 25 MG TAB PO SCH (08:06)
[2019-05-07] MEDS: ASCORBIC ACID 500 MG TAB PO SCH ×3 (08:08→20:32)
[2019-05-07] MEDS: FUROSEMIDE 20 MG/2 ML VIAL (J1940) IV SCH (08:08)
[2019-05-07] MEDS: predniSONE 10 MG TAB PO SCH (08:08)
[2019-05-07] MEDS: oxyCODONE 5MG TAB PO PRN ×3 (08:08→20:33)
[2019-05-07] MEDS: CitaloPRAM (CeleXA) 20 MG TAB PO SCH (08:08)
[2019-05-07] MEDS: amLODIPine 5 MG TAB PO SCH (08:09)
[2019-05-07] MEDS: HumaLOG INSULIN (NovoLOG) PER UNIT SC SCH ×4 (08:10→21:00)
--- NOTE | 2019-05-07 08:28 | RO ---
DATE OF PROCEDURE: 05/04/2019 PREOPERATIVE DIAGNOSIS: Displaced right proximal femur fracture. POSTOPERATIVE DIAGNOSIS: Displaced right proximal femur fracture, (four-part intertrochanteric femur fracture) PROCEDURE PERFORMED: Closure reduction and internal fixation right femur with a cephalomedullary nail. SURGEON: Dr. Austin Hernandez. INTERN BRAND: None. ANESTHESIA: Spinal. IV FLUIDS: Lactated Ringer's. ESTIMATED BLOOD LOSS: 150 mL. IMPLANTS: Synthes 125 degree neck angle TFNA, 360 mm length. 105 mm helical blade. Distal interlocking screws times two. CLOSURE: Rhett. DESCRIPTION OF PROCEDURE: The patient was identified in the preoperative holding area. The right leg marked by myself. He was medically optimized by the hospitalist. He was then brought to the operating room and spinal anesthesia was induced. He was then carefully positioned on the fracture table with the right leg well padded in the traction boot and the left leg secured to the central beam of the fracture table, very well padded. There is a Venodyne boot on the left lower extremity for deep venous thrombosis (DVT) prophylaxis. Time-out was then performed per hospital protocol. He received appropriate IV antibiotics within 1 hour of incision. A closed reduction with manipulation was then performed by applying traction, internal rotation and adduction. This was a four-part fracture with extension distal to the lesser trochanter, which had not been apparent on his preoperative x-rays. I felt that this required a long cephalomedullary nail. The patient's right hip and leg were then prepped and draped in normal sterile fashion with Chloraprep and the shower curtain drape. Prior to incision, time-out was performed again. A 4 cm incision was made with the 10 blade just proximal to the greater trochanter. Dissection with electrocautery and Metzenbaum scissors down to the tensor fascia, which was carefully opened with curved Morgan scissors. The release was carried out slightly further distal due to there being increased adipose tissue. I was unable to palpate the tip of the greater trochanter. Threaded guidewire was then placed at the tip of the greater trochanter and advanced to the lesser trochanter. An alignment correction guide was then used and then a new threaded guidewire was placed centrally on the lateral and AP view of the tip of the greater trochanter. The opening reamer was then use with the guidewire. Ball-tip guidewire was placed down the femoral canal and I then sequentially reamed the femur up to a 12.5. There was significant chatter with the 12 and 12.5 reamers. The measuring guide was then used and a 360 mm nail felt to be most appropriate. The guidewire was checked on lateral view at the knee and it was at the proximal pole of the patella. Next a 360 mm, 1-25 degree Synthes TFN was opened and placed on its structural designer over the guidewire. He was malleted to the appropriate depth. Ball-tip guidewire was removed, the targeting arm was secured to the structural designer and a threaded guidewire was advanced up the femoral neck to the subchondral bone of the femoral head. The guidewire was just distal to the mid point and was central on the lateral view. It was central in the humeral head on the lateral view. Depth gauge was use and it was felt that 105 mm helical blade would be most appropriate. The reamer was placed over the guidewire. Then I malleted 105 mm helical blade over the guidewire with excellent fixation. I then compressed through the nail closing down a slight gap at the calcar. There was an excellent reduction. The nail was locked proximally. Targeting arm removed. I then placed two distal locking screws per perfect [place] technique, one through the static, one through the dynamic slots. These had bicortical fixation and I confirmed on AP and lateral views that they were bicortical and through the nail. All instrumentation was removed. All incisions were irrigated. Final x-rays taken, AP lateral at the hip and knee. The incision was then closed in a layered fashion. 0 Vicryl, 2-0 Vicryl and rhett. Bulky sterile dressing was applied. All counts correct times two. Complications none. He was then transferred to postanesthesia care unit (PACU) in stable condition. DISPOSITION: He will remain under the care of hospitalist service in the progressive care unit. He will have DVT prophylaxis starting postop day 1. He will have 24-hour total IV antibiotic prophylaxis. He will be weightbearing as tolerated with a walker.
--- NOTE | 2019-05-07 09:36 | IPN ---
DATE: 05/06/2019 Mr. Higgins is seen this morning on his bedside. He is feeling better and denies any dyspnea, chest pain, nausea or vomiting. He had his right hip surgery done a couple of days ago which is doing well. The patient developed acute renal failure and hyperkalemia prior to surgery and kidney function has been improving. His hyperkalemia did resolve yesterday. His colostomy is functioning well and he reports eating well. On physical examination, temperature 98 degrees Fahrenheit, heart rate about 100 per minute and respiratory rate 20 per minute. Blood pressure 130/62 mmHg and oxygen saturation 94%. His head is atraumatic. Neck is supple and without jugular venous distention (JVD) or thyroid enlargement. Heart sounds are tachycardiac, but regular. Lungs with slightly diminished breath sounds. Abdomen: Obese, soft and nontender. Bowel sounds are normal. Extremities: Without any cyanosis or clubbing. Right hip surgery incision site is clean and he does have significant swelling on his right thigh. Neurologically he is awake, alert and oriented x3. Today's labs show WBC count 13.3, hemoglobin 8.9 and hematocrit 27.7. Platelets 161. Sodium 134, potassium 5.2, CO2 26, BUN 37 and creatinine 1.52. Calcium 8.4 and magnesium 1.7. PROBLEMS: 1. Acute kidney injury superimposed on chronic kidney disease. Kidney function has improved since yesterday. He has good urine output and adequate oral intake. At this point, we will recheck his renal profile tomorrow and not change any medications today. 2. Hyperkalemia. His hyperkalemia did improve yesterday with medical management. Slight hyperkalemia has recurred today which is probably related to right thigh hematoma. He is likely to have recurrent hyperkalemia due to large hematoma in his right thigh. I recommend to continue monitoring closely and treat him with daily dose of VELTASSA if his hyperkalemia persists. Electrolytes will be checked again tomorrow. 3. Anemia. The patient has acute blood loss anemia related to his right hip fracture and surgery. No urgent intervention is needed at this point. 4. Osteoporosis. The patient was on Fosamax which has been stopped at present due to hip fracture and risk for poor healing with Fosamax. It can probably be resumed in a few weeks. 5. Hypertension and lower extremity edema. The patient was on Lasix 20 mg daily at home which was stopped due to acute renal failure. He does have recurrent hyperkalemia now and kidney function is improving. I would go ahead and resume his Lasix 20 mg daily and see how he does. He should stay off PAUL inhibitor.
--- NOTE | 2019-05-07 11:36 | IPNPDOC ---
Date Seen The patient was seen on 05/07/19. Progress Note NEPHROLOGY SERVICE PROGRESS NOTE SUBJECTIVE: Patient is a 74 YO M with history of R hip surgery and subsequent hyperkalemia and IRMA. Mr. Higgins was seen and examined at the bedside this morning. He reports he is feeling better and is eating well. He is having no reported issue with diarrhea or increased output from his stoma. He is urinating normally. No nausea or vomiting, no palpitations. OBJECTIVE PHYSICAL EXAMINATION: VITAL SIGNS: Please see below. GENERAL: laying in bed, appears stated age, calm, cooperative, in no acute distress HEENT: EOMI, PERRLA, normocephalic/atraumatic, neck is supple with no lymphadenopathy or thyromegaly CARDIOVASCULAR: RRR, no murmurs/rubs/gallops RESPIRATORY: Clear to auscultation bilaterally with no adventitious breath sounds appreciated ABDOMINAL: soft, nontender, ostomy is in place, no surrounding erythema EXTREMITIES: no clubbing/cyanosis/edema; there is an incision site at R hip from surgery NEUROLOGICAL: CN 2-12 intact with no obvious focal deficits PSYCHOLOGICAL: AAOx3, normal mood/affect LABORATORY DATA, IMAGING STUDIES, MICROBIOLOGY: Please see below. ASSESSMENT AND PLAN: Patient is a 74 YO M with history of R hip surgery and subsequent hyperkalemia and IRMA. PROBLEMS: 1. Acute on chronic kidney disease: -Cr WNL at 1.08 this morning, down from 1.52 -Urine output acceptable at about ~2L output from yesterday -Will continue current regimen of lasix 20mg IV daily 2. Hyperkalemia: most likely related to R thigh hematoma and resorption of blood. -Continue Veltassa -K will likely go down over time. It is 5.2 today from highest level 5.9 -Magnesium low today. Replaced with 2 MagRuns. -Will continue to monitor electrolytes 3. Anemia: -Hgb stable at 8.7 and patient is asymptomatic -No changes to be made at this time 4. Osteoporosis: -resume home Fosamax in a few weeks 5. Hypertension: -Continue Lasix 20mg home dose and continue holding PAUL DISPOSITION: pending volume status improvement and resolution of hyperkalemia VS, I&O, 24H, Fishbone Vital Signs/I&O Vital Signs Date Time Temp Pulse Resp B/P (MAP) Pulse Ox O2 Delivery O2 Flow Rate FiO2 10/7/19 10:56 2.0 05/07/19 08:38 18 05/07/19 08:09 104 151/60 05/07/19 06:00 98.3 84 05/06/19 19:36 Nasal Cannula I&O- Last 24 Hours up to 6 AM 05/07/19 06:00 Intake Total 3140 ml Output Total 2176 ml Balance 964 ml Laboratory Data 24H LABS Laboratory Tests 2 05/06/19 11:32: Bedside Glucose (Misc Panel) 194H 05/06/19 16:41: Bedside Glucose (Misc Panel) 135H 05/06/19 20:25: Bedside Glucose (Misc Panel) 172H 05/07/19 05:29: Nucleated Red Blood Cells % (auto) 0.0, Anion Gap 5L, Glomerular Filtration Rate > 60.0, Blood Urea Nitrogen 29H, Creatinine 1.08, Sodium Level 133L, Potassium Level 5.2H, Chloride Level 101, Carbon Dioxide Level 27, Calcium Level 8.4L, Magnesium Level 1.4L CBC/BMP Laboratory Tests 05/07/19 05:29 Red Blood Count 2.80 L, Mean Corpuscular Volume 95.0, Mean Corpuscular Hem oglobin 31.1, Mean Corpuscular Hemoglobin Concent 32.7, Red Cell Distribution Width 13.5, Calcium Level 8.4 L GME ATTESTATION GME ATTESTATION My faculty preceptor for this patient encounter was physically present during the encounter and was fully available. All aspects of the patient interview, examination, medical decision making process, and medical care plan development were reviewed and approved by the faculty preceptor. The faculty preceptor is aware and concurs with the plan as stated in the body of this note and will attest to such by his/her cosignature. SUMEET AVALOS MD May 07, 2019 11:36
[2019-05-07] MEDS: PATIROMER SORBITEX CALCIUM 8.4 GM POWDER PACKET (VELTASSA) PO SCH (12:28)
[2019-05-07] MEDS: MAG SULF 1GM/100ML (MAG RUN) 1 GM in IV 1 EA IV SCH ×2 (12:29→13:30)
--- NOTE | 2019-05-07 13:25 | IPNPDOC ---
Text Note Date of Service The patient was seen on 05/07/19. NOTE Subjective: Patient adamantly stated that he wants to go home instead of ARU. He slept well Objective: General in moderate distress HEENT: PERRLA, EOMI CV: S1-S2 Lungs: Clear to auscultation bilaterally Abdomen: Nontender, nondistended Extremity: Status post right hip surgery, dressing intact. No swelling, no cyanosis of lower extremities Neuro: Nonfocal, cranial nerves from 2 through 12 intact Assessment and plan Patient is 74 years old male with past medical history of depression, diabetes, hypertension, COPD presented hospital with right hip fracture. After he frac tured patient developed hyperkalemia associated with acute renal failure. Acute renal failure superimposed on chronic kidney disease. Most likely prerenal Improved Continue gentle diuresis Hyperkalemia Secondary to acute on chronic renal failure and hematoma secondary to right hip fracture Continue treatment with patiromer His potassium is still elevated today. Renal ultrasound negative for hy dronephrosis Super[employer] team follows him Hypertension and tachycardia The dose of atenolol was increased to 75 mg, continue to monitor PAUL inhibitor on hold Hypomagnesemia continue to monitor Insomnia Ramelteon Anemia. The patient has acute blood loss anemia related to his right hip fracture and surgery. No urgent intervention is needed at this point. Osteoporosis. The patient was on Fosamax which has been stopped at present due to hip fracture and risk for poor healing with Fosamax. It can probably be resumed in a few week Depression Continue home meds Deconditioning PT/OT continuing treatment and evaluation before discharge VS,Jessiee, I+O VS, Fishbone, I+O Laboratory Tests 05/07/19 05:29 Red Blood Count 2.80 L, Mean Corpuscular Volume 95.0, Mean Corpuscular Hemoglobin 31.1, Mean Corpuscular Hemoglobin Concent 32.7, Red Cell Distribution Width 13.5, Calcium Level 8.4 L Vital Signs Date Time Temp Pulse Resp B/P (MAP) Pulse Ox O2 Delivery O2 Flow Rate FiO2 05/07/19 12:28 20 05/07/19 10:56 2.0 05/07/19 08:09 104 151/60 05/07/19 06:00 98.3 84 05/06/19 19:36 Nasal Cannula I&O- Last 24 Hours up to 6 AM 05/07/19 06:00 Intake Total 3140 ml Output Total 2176 ml Balance 964 ml JERRY SANABRIA DO May 07, 2019 13:25
[2019-05-07 14:00] VITALS: BP 146/73
[2019-05-07] MEDS: RIVAROXABAN 10 MG TAB (XARELTO) PO SCH (17:40)
[2019-05-07] MEDS: RAMELTEON 8 MG TAB (ROZEREM) PO SCH (20:32)
[2019-05-07] MEDS: rOPINIRole 2MG TAB PO SCH (20:32)
[2019-05-07] MEDS: AMITRIPTYLINE 25 MG TAB PO SCH (20:32)
[2019-05-07] MEDS: SIMVASTATIN 20 MG TAB PO SCH (20:32)
[2019-05-07] MEDS: GABAPENTIN 300 MG CAP PO SCH (20:32)
[2019-05-07 22:00] VITALS: BP 146/74
[2019-05-08 06:00] VITALS: BP 145/73
[2019-05-08 06:35] LABS: HEMOGLOBIN 9.2 g/dl (13.5-17.5); MEAN CORPUSCULAR HGB CONC 32.9 g/dl (32.0-36.5); MEAN CORPUSCULAR VOLUME 94.3 fl (80.0-96.0); PLATELET COUNT, AUTOMATED 214 10^3/uL (150-450); RED BLOOD COUNT 2.97 10^6/uL (4.30-6.10); WHITE BLOOD COUNT 11.8 10^3/uL (4.0-10.0)
[2019-05-08 07:04] LABS: BLOOD UREA NITROGEN 25 MG/DL (7-18); CALCIUM LEVEL 8.1 MG/DL (8.8-10.2); CARBON DIOXIDE LEVEL 29 MEQ/L (21-32); CHLORIDE LEVEL 100 MEQ/L (98-107); CREATININE FOR GFR 1.03 MG/DL (0.70-1.30); GLOMERULAR FILTRATION RATE > 60.0 (>42); GLUCOSE, FASTING 136 MG/DL (70-100); MAGNESIUM LEVEL 1.6 MG/DL (1.8-2.4); POTASSIUM SERUM 5.3 MEQ/L (3.5-5.1); SODIUM LEVEL 132 MEQ/L (136-145)
[2019-05-08] MEDS: FUROSEMIDE 20 MG/2 ML VIAL (J1940) IV SCH (08:09)
[2019-05-08] MEDS: MOM 30ML SUSPENSION UDC PO SCH (08:09)
[2019-05-08] MEDS: ASCORBIC ACID 500 MG TAB PO SCH ×3 (08:09→20:43)
[2019-05-08] MEDS: MIRALAX *UNIT DOSE* 17GM PACKET PO SCH ×2 (08:09→20:42)
[2019-05-08] MEDS: amLODIPine 5 MG TAB PO SCH (08:10)
[2019-05-08] MEDS: VITAMIN D 1,000 INTERNATIONAL UNITS TABLET PO SCH (08:10)
[2019-05-08] MEDS: HumaLOG INSULIN (NovoLOG) PER UNIT SC SCH ×4 (08:10→21:00)
[2019-05-08] MEDS: busPIRone 5 MG TAB PO SCH ×2 (08:11→20:43)
[2019-05-08] MEDS: OMEPRAZOLE 20 MG CAP PO SCH (08:11)
[2019-05-08] MEDS: CitaloPRAM (CeleXA) 20 MG TAB PO SCH (08:11)
[2019-05-08] MEDS: FOLIC ACID 1 MG TAB PO SCH (08:11)
[2019-05-08] MEDS: predniSONE 10 MG TAB PO SCH (08:12)
[2019-05-08] MEDS: ATENOLOL 25 MG TAB PO SCH (08:13)
[2019-05-08] MEDS: SENOKOT S TAB PO SCH ×2 (08:15→20:43)
[2019-05-08] MEDS: ADVAIR HFA 115/21MCG INHALER INH SCH ×2 (08:17→20:00)
--- NOTE | 2019-05-08 10:21 | IPNPDOC ---
Text Note Date of Service The patient was seen on 05/08/19. NOTE Subjective: Today patient agrees to go to ARU. He slept well Objective: General in moderate distress HEENT: PERRLA, EOMI CV: S1-S2 Lungs: Clear to auscultation bilaterally Abdomen: Nontender, nondistended Extremity: Status post right hip surgery, dressing intact. No swelling, no cyanosis of lower extremities Neuro: Nonfocal, cranial nerves from 2 through 12 intact Assessment and plan Patient is 74 years old male with past medical history of depression, diabetes, hypertension, COPD presented hospital with right hip fracture. After he fractured patient developed hyperkalemia associated with acute renal failure. Acute renal failure superimposed on chronic kidney disease. Most likely prerenal Improved Encourage to drink plenty of fluid Hyperkalemia Secondary to acute on chronic renal failure and hematoma secondary to right hip fracture Continue treatment with patiromer His potassium continues to be elevated today. Renal ultrasound negative for hydronephrosis Food [employer] team follows him Hypertension and tachycardia Blood pressures under control The dose of atenolol was increased to 75 mg, continue to monitor PAUL inhibitor on hold Hypomagnesemia continue to monitor Insomnia Ramelteon Anemia. The patient has acute blood loss anemia related to his right hip fracture and surgery. No urgent intervention is needed at this point. Osteoporosis. The patient was on Fosamax which has been stopped at present due to hip fracture and risk for poor healing with Fosamax. It can probably be resumed in a few week Depression Continue home meds Deconditioning PT/OT continuing treatment and evaluation before discharge VS,Fishbone, I+O VS, Fishbone, I+O Laboratory Tests 05/08/19 06:05 Red Blood Count 2.97 L, Mean Corpuscular Volume 94.3, Mean Corpuscular Hemoglobin 31.0, Mean Corpuscular Hemoglobin Concent 32.9, Red Cell Distribution Width 13.4, Calcium Level 8.1 L Vital Signs Date Time Temp Pulse Resp B/P (MAP) Pulse Ox O2 Delivery O2 Flow Rate FiO2 05/08/19 06:00 98.6 101 20 145/73 (97) 94 05/07/19 23:00 2.0 05/06/19 19:36 Nasal Cannula I&O- Last 24 Hours up to 6 AM 05/08/19 06:00 Intake Total 3480 ml Output Total 3550 ml Balance -70 ml JERRY SANABRIA DO May 08, 2019 10:21
[2019-05-08] MEDS: MAGNESIUM CHLORIDE 64 MG TABCR (SLO MAG) PO SCH (10:57)
--- NOTE | 2019-05-08 11:09 | IPNPDOC ---
Date Seen The patient was seen on 05/08/19. Progress Note NEPHROLOGY SERVICE PROGRESS NOTE SUBJECTIVE: Patient is a 74 YO M with history of R hip surgery and subsequent hyperkalemia and IRMA. Mr. Higgins was seen and examined at the bedside this morning. He has no complaints. Continues to work with physical therapy. He is eating and drinking well. No issues with urination. OBJECTIVE PHYSICAL EXAMINATION: VITAL SIGNS: Please see below. GENERAL: laying in bed, appears stated age, calm, cooperative, in no acute distress HEENT: EOMI, PERRLA, normocephalic/atraumatic, neck is supple with no lymphadenopathy or thyromegaly CARDIOVASCULAR: RRR, no murmurs/rubs/gallops RESPIRATORY: Clear to auscultation bilaterally with no adventitious breath sounds appreciated ABDOMINAL: soft, nontender, ostomy is in place, no surrounding erythema EXTREMITIES: no clubbing/cyanosis/edema; there is an incision site at R hip from surgery NEUROLOGICAL: CN 2-12 intact with no obvious focal deficits PSYCHOLOGICAL: AAOx3, normal mood/affect LABORATORY DATA, IMAGING STUDIES, MICROBIOLOGY: Please see below. ASSESSMENT AND PLAN: Patient is a 74 YO M with history of R hip surgery and subsequent hyperkalemia and IRMA. PROBLEMS: 1. Acute on chronic kidney disease: -Cr WNL at 1.03 this morning -Urine output acceptable -Will continue current regimen of lasix 20mg IV daily 2. Hyperkalemia: most likely related to R thigh hematoma and resorption of blood. -Continue Veltassa daily + 1 extra dose given today -K will likely go down over time -Magnesium low--replaced today -Will continue to monitor electrolytes 3. Anemia: -Hgb improved to 9.2 and patient is asymptomatic -No changes to be made at this time 4. Osteoporosis: -resume home Fosamax in a few weeks 5. Hypertension: -Continue Lasix 20mg home dose and continue holding PAUL DISPOSITION: As the patient's renal function and volume status has improved, he is optimized from a Nephrology standpoint and we will be signing off at this time. Thank you for this consultation. VS, I&O, 24H, Fishbone Vital Signs/I&O Vital Signs Date Time Temp Pulse Resp B/P (MAP) Pulse Ox O2 Delivery O2 Flow Rate FiO2 05/08/19 06:00 98.6 101 20 145/73 (97) 94 05/07/19 23:00 2.0 05/06/19 19:36 Nasal Cannula I&O- Last 24 Hours up to 6 AM 05/08/19 06:00 Intake Total 3480 ml Output Total 3550 ml Balance -70 ml Laboratory Data 24H LABS Laboratory Tests 2 05/07/19 11:54: Bedside Glucose (Misc Panel) 207H 05/07/19 16:32: Bedside Glucose (Misc Panel) 192H 05/07/19 19:58: Bedside Glucose (Misc Panel) 151H 05/08/19 06:05: Nucleated Red Blood Cells % (auto) 0.0, Anion Gap 3L, Glomerular Filtration Rate > 60.0, Blood Urea Nitrogen 25H, Creatinine 1.03, Sodium Level 132L, Potassium Level 5.3H, Chloride Level 100, Carbon Dioxide Level 29, Calcium Level 8.1L, Magnesium Level 1.6L CBC/BMP Laboratory Tests 05/08/19 06:05 Red Blood Count 2.97 L, Mean Corpuscular Volume 94.3, Mean Corpuscular Hemoglobin 31.0, Mean Corpuscular Hemoglobin Concent 32.9, Red Cell Distribution Width 13.4, Calcium Level 8.1 L GME ATTESTATION GME ATTESTATION My faculty preceptor for this patient encounter was physically present during the encounter and was fully available. All aspects of the patient interview, examination, medical decision making process, and medical care plan development were reviewed and approved by the faculty preceptor. The faculty preceptor is aware and concurs with the plan as stated in the body of this note and will attest to such by his/her cosignature. SUMEET AVALOS MD May 08, 2019 11:09
[2019-05-08] MEDS: PATIROMER SORBITEX CALCIUM 8.4 GM POWDER PACKET (VELTASSA) PO SCH (12:56)
[2019-05-08] MEDS: PROPYLTHIOURACIL 50 MG TAB PO SCH ×2 (12:56→20:44)
[2019-05-08] MEDS: traMADol 50 MG TAB PO PRN ×2 (12:57→20:44)
[2019-05-08 14:26] VITALS: BP 143/75
[2019-05-08] MEDS ORDERED: PATIROMER SORBITEX CALCIUM 8.4 GM POWDER PACKET (VELTASSA) PO ONE (15:00)
[2019-05-08] MEDS: oxyCODONE 5MG TAB PO PRN (16:13)
[2019-05-08] MEDS: RIVAROXABAN 10 MG TAB (XARELTO) PO SCH (17:40)
[2019-05-08 20:00] VITALS: BP 143/75
[2019-05-08] MEDS: RAMELTEON 8 MG TAB (ROZEREM) PO SCH (20:43)
[2019-05-08] MEDS: GABAPENTIN 300 MG CAP PO SCH (20:43)
[2019-05-08] MEDS: AMITRIPTYLINE 25 MG TAB PO SCH (20:43)
[2019-05-08] MEDS: SIMVASTATIN 20 MG TAB PO SCH (20:43)
[2019-05-08] MEDS: rOPINIRole 2MG TAB PO SCH (20:43)
[2019-05-09] MEDS: traMADol 50 MG TAB PO PRN ×2 (05:36→18:25)
[2019-05-09] MEDS: ACETAMINOPHEN TAB 650MG DOSE (2X325MG) PO PRN ×2 (05:37→09:33)
[2019-05-09 06:00] VITALS: BP 149/70
[2019-05-09] MEDS ORDERED: PERC5TAB12 PO (07:04)
[2019-05-09] MEDS ORDERED: XARE10TA PO (07:04)
[2019-05-09 07:06] LABS: MAGNESIUM LEVEL 1.2 MG/DL (1.8-2.4)
[2019-05-09 07:26] LABS: BLOOD UREA NITROGEN 27 MG/DL (7-18); CALCIUM LEVEL 8.7 MG/DL (8.8-10.2); CARBON DIOXIDE LEVEL 29 MEQ/L (21-32); CHLORIDE LEVEL 95 MEQ/L (98-107); CREATININE FOR GFR 1.06 MG/DL (0.70-1.30); GLOMERULAR FILTRATION RATE > 60.0 (>42); GLUCOSE, FASTING 135 MG/DL (70-100); POTASSIUM SERUM 5.5 MEQ/L (3.5-5.1); SODIUM LEVEL 132 MEQ/L (136-145)
[2019-05-09] MEDS: ADVAIR HFA 115/21MCG INHALER INH SCH ×2 (07:52→20:46)
[2019-05-09] MEDS ORDERED: FUROSEMIDE 40 MG/4 ML VIAL (J1940) IV ONE (08:15)
[2019-05-09 08:30] VITALS: BP 136/72
[2019-05-09] MEDS: MAGNESIUM CHLORIDE 64 MG TABCR (SLO MAG) PO SCH (08:31)
[2019-05-09] MEDS: MIRALAX *UNIT DOSE* 17GM PACKET PO SCH ×2 (08:31→21:00)
[2019-05-09] MEDS: MOM 30ML SUSPENSION UDC PO SCH ×2 (08:31→08:40)
[2019-05-09] MEDS: HumaLOG INSULIN (NovoLOG) PER UNIT SC SCH ×4 (08:33→21:00)
[2019-05-09] MEDS: ATENOLOL 25 MG TAB PO SCH (08:33)
[2019-05-09] MEDS: busPIRone 5 MG TAB PO SCH ×2 (08:34→21:21)
[2019-05-09] MEDS: OMEPRAZOLE 20 MG CAP PO SCH (08:34)
[2019-05-09] MEDS: SENOKOT S TAB PO SCH ×2 (08:34→21:00)
[2019-05-09] MEDS: CitaloPRAM (CeleXA) 20 MG TAB PO SCH (08:34)
[2019-05-09] MEDS: FOLIC ACID 1 MG TAB PO SCH (08:34)
[2019-05-09] MEDS: FUROSEMIDE 20 MG TAB PO SCH ×2 (08:34→16:26)
[2019-05-09] MEDS: PROPYLTHIOURACIL 50 MG TAB PO SCH ×2 (08:34→21:21)
[2019-05-09] MEDS: VITAMIN D 1,000 INTERNATIONAL UNITS TABLET PO SCH (08:34)
[2019-05-09] MEDS: ASCORBIC ACID 500 MG TAB PO SCH ×3 (08:35→21:21)
[2019-05-09] MEDS: amLODIPine 5 MG TAB PO SCH (08:35)
[2019-05-09] MEDS: predniSONE 10 MG TAB PO SCH (08:35)
[2019-05-09] MEDS ORDERED: FUROSEMIDE 40 MG TAB PO ONE (10:00)
--- NOTE | 2019-05-09 11:10 | IPNPDOC ---
Date Seen The patient was seen on 05/09/19. Progress Note NEPHROLOGY SERVICE PROGRESS NOTE SUBJECTIVE: Patient is a 74 YO M with history of R hip surgery and subsequent hyperkalemia and IRMA. Mr. Higgins was seen and examined at the bedside this morning. He has no complaints. Continues to work with physical therapy. He is eating and drinking well. No issues with urination. His potassium has gone up today. OBJECTIVE PHYSICAL EXAMINATION: VITAL SIGNS: Please see below. GENERAL: laying in bed, appears stated age, calm, cooperative, in no acute distr ess HEENT: EOMI, PERRLA, normocephalic/atraumatic, neck is supple with no lymphadenopathy or thyromegaly CARDIOVASCULAR: RRR, no murmurs/rubs/gallops RESPIRATORY: Clear to auscultation bilaterally with no adventitious breath sounds appreciated ABDOMINAL: soft, nontender, ostomy is in place, no surrounding erythema EXTREMITIES: no clubbing/cyanosis/edema; there is an incision site at R hip from surgery NEUROLOGICAL: CN 2-12 intact with no obvious focal deficits PSYCHOLOGICAL: AAOx3, normal mood/affect LABORATORY DATA, IMAGING STUDIES, MICROBIOLOGY: Please see below. ASSESSMENT AND PLAN: Patient is a 74 YO M with history of R hip surgery and subsequent hyperkalemia and IRMA. PROBLEMS: 1. Acute on chronic kidney disease: -Cr WNL at 1.03 this morning -Urine output acceptable -Had been getting 20mg IV lasix, but patient lost IV. Have written for 40mg PO lasix at this time 2. Hyperkalemia: Persistent. Potassium went up to 5.5 today. Most likely related to R thigh hematoma and resorption of blood. -Continue Veltassa daily -Lasix 40mg PO today and will recheck BMP around 1300 -Magnesium replacement changed to Magnesium Gluconate 500mg PO QID -If Potassium continues to increase will consider giving him one time dose of fludrocortisone 3. Anemia: -Hgb improved to 9.2 and patient is asymptomatic -No changes to be made at this time 4. Osteoporosis: -resume home Fosamax in a few weeks 5. Hypertension: -Continue Norvasc, Lasix DISPOSITION: Pending BMP at 1300 and resolution of hyperkalemia VS, I&O, 24H, Fishbone Vital Signs/I&O Vital Signs Date Time Temp Pulse Resp B/P (MAP) Pulse Ox O2 Delivery O2 Flow Rate FiO2 05/09/19 08:30 107 136/72 (93) 05/09/19 06:06 15 05/09/19 06:00 98.4 92 05/07/19 23:00 2.0 05/06/19 19:36 Nasal Cannula I&O- Last 24 Hours up to 6 AM 05/09/19 06:00 Intake Total 2560 ml Output Total 3950 ml Balance -1390 ml Laboratory Data 24H LABS Laboratory Tests 2 05/08/19 12:06: Bedside Glucose (Misc Panel) 207H 05/09/19 06:19: Anion Gap 8, Glomerular Filtration Rate > 60.0, Blood Urea Nitrogen 27H, Creatinine 1.06, Sodium Level 132L, Potassium Level 5.5H, Chloride Level 95L, Carbon Dioxide Level 29, Calcium Level 8.7L, Magnesium Level 1.2L CBC/BMP Laboratory Tests 05/09/19 06:19 Calcium Level 8.7 L GME ATTESTATION GME ATTESTATION My faculty preceptor for this patient encounter was physically present during the encounter and was fully available. All aspects of the patient interview, examination, medical decision making process, and medical care plan development were reviewed and approved by the faculty preceptor. The faculty preceptor is aware and concurs with the plan as stated in the body of this note and will attest to such by his/her cosignature. SUMEET AVALOS MD May 09, 2019 11:10
--- NOTE | 2019-05-09 11:28 | IPNPDOC ---
Text Note Date of Service The patient was seen on 05/09/19. NOTE Subjective: No any acute events overnight. Patient denies fever, chills, nausea, vomiting, palpitations, shortness of breath, dysuria Objective: General in moderate distress HEENT: PERRLA, EOMI CV: S1-S2 Lungs: Clear to auscultation bilaterally Abdomen: Nontender, nondistended, colostomy in place Extremity: Status post right hip surgery, dressing intact. No swelling, no cya nosis of lower extremities Neuro: Nonfocal, cranial nerves from 2 through 12 intact Assessment and plan Patient is 74 years old male with past medical history of depression, diabetes, hypertension, COPD presented hospital with right hip fracture. After he fractured patient developed hyperkalemia associated with acute renal failure. Acute renal failure superimposed on chronic kidney disease. Most likely prerenal Improved Encourage to drink plenty of fluid Hyperkalemia Secondary to acute on chronic renal failure and hematoma secondary to right hip fracture Continue treatment with patiromer His potassium continues to be elevated today. Renal ultrasound negative for hydronephrosis Intensified diuresis Lasix Repeat BMP at 1 PM Calcium gluconate EKG Director [employer] team recommended 1 time dose of fludrocortisone if potassium continues to be elevated Hypertension and tachycardia Blood pressures under control The dose of atenolol was increased to 75 mg, continue to monitor PAUL inhibitor on hold Hypomagnesemia continue to monitor Insomnia Ramelteon Anemia. The patient has acute blood loss anemia related to his right hip fracture and surgery. No urgent intervention is needed at this point. Osteoporosis. The patient was on Fosamax which has been stopped at present due to hip fracture and risk for poor healing with Fosamax. It can probably be resumed in a few week Depression Continue home meds Deconditioning PT/OT continuing treatment and evaluation before discharge VS,Fishbone, I+O VS, Fishbone, I+O Laboratory Tests 05/09/19 06:19 Calcium Level 8.7 L Vital Signs Date Time Temp Pulse Resp B/P (MAP) Pulse Ox O2 Delivery O2 Flow Rate FiO2 05/09/19 08:30 107 136/72 (93) 05/09/19 06:06 15 05/09/19 06:00 98.4 92 05/07/19 23:00 2.0 05/06/19 19:36 Nasal Cannula I&O- Last 24 Hours up to 6 AM 10/9/19 06:00 Intake Total 2560 ml Output Total 3950 ml Balance -1390 ml JERRY SANABRIA DO May 09, 2019 11:28
[2019-05-09] MEDS ORDERED: CALCIUM GLUCONATE 1,000 MG in D5W MINI-BAG PLUS 100 ML IV ONE (12:00)
[2019-05-09] MEDS: MAGNESIUM GLUCONATE 500 MG TAB PO SCH ×3 (12:36→21:21)
[2019-05-09] MEDS: PATIROMER SORBITEX CALCIUM 8.4 GM POWDER PACKET (VELTASSA) PO SCH (12:37)
[2019-05-09 13:51] LABS: BLOOD UREA NITROGEN 30 MG/DL (7-18); CALCIUM LEVEL 8.7 MG/DL (8.8-10.2); CARBON DIOXIDE LEVEL 25 MEQ/L (21-32); CHLORIDE LEVEL 90 MEQ/L (98-107); CREATININE FOR GFR 1.18 MG/DL (0.70-1.30); GLOMERULAR FILTRATION RATE > 60.0 (>42); GLUCOSE, FASTING 276 MG/DL (70-100); POTASSIUM SERUM 5.8 MEQ/L (3.5-5.1); SODIUM LEVEL 124 MEQ/L (136-145)
[2019-05-09 16:00] VITALS: BP 147/86
[2019-05-09 16:25] VITALS: BP 160/88
[2019-05-09] MEDS: RIVAROXABAN 10 MG TAB (XARELTO) PO SCH (17:08)
[2019-05-09] MEDS ORDERED: FLUDROCORTISONE ACETATE 0.1 MG TAB PO ONE (18:00)
[2019-05-09] MEDS: rOPINIRole 2MG TAB PO SCH (21:21)
[2019-05-09] MEDS: RAMELTEON 8 MG TAB (ROZEREM) PO SCH (21:21)
[2019-05-09] MEDS: GABAPENTIN 300 MG CAP PO SCH (21:21)
[2019-05-09] MEDS: SIMVASTATIN 20 MG TAB PO SCH (21:21)
[2019-05-09] MEDS: AMITRIPTYLINE 25 MG TAB PO SCH (21:21)
[2019-05-09 22:00] VITALS: BP 158/84
[2019-05-09] MEDS: oxyCODONE 5MG TAB PO PRN (22:09)
[2019-05-09 22:30] LABS: BLOOD UREA NITROGEN 32 MG/DL (7-18); CALCIUM LEVEL 8.5 MG/DL (8.8-10.2); CARBON DIOXIDE LEVEL 29 MEQ/L (21-32); CHLORIDE LEVEL 89 MEQ/L (98-107); CREATININE FOR GFR 1.07 MG/DL (0.70-1.30); GLOMERULAR FILTRATION RATE > 60.0 (>42); GLUCOSE, FASTING 165 MG/DL (70-100); POTASSIUM SERUM 5.1 MEQ/L (3.5-5.1); SODIUM LEVEL 125 MEQ/L (136-145)
[2019-05-10 06:00] VITALS: BP 149/79
[2019-05-10] MEDS: ADVAIR HFA 115/21MCG INHALER INH SCH ×2 (06:26→18:10)
[2019-05-10 06:43] LABS: HEMATOCRIT 29.9 % (42.0-52.0); MEAN CORPUSCULAR HEMOGLOBIN 30.8 pg (27.0-33.0); MEAN CORPUSCULAR HGB CONC 33.4 g/dl (32.0-36.5); PLATELET COUNT, AUTOMATED 266 10^3/uL (150-450); RED BLOOD COUNT 3.25 10^6/uL (4.30-6.10); WHITE BLOOD COUNT 16.3 10^3/uL (4.0-10.0)
[2019-05-10 07:08] LABS: BLOOD UREA NITROGEN 35 MG/DL (7-18); CALCIUM LEVEL 8.8 MG/DL (8.8-10.2); CARBON DIOXIDE LEVEL 29 MEQ/L (21-32); CHLORIDE LEVEL 89 MEQ/L (98-107); CREATININE FOR GFR 1.03 MG/DL (0.70-1.30); GLOMERULAR FILTRATION RATE > 60.0 (>42); GLUCOSE, FASTING 139 MG/DL (70-100); MAGNESIUM LEVEL 1.1 MG/DL (1.8-2.4); POTASSIUM SERUM 4.6 MEQ/L (3.5-5.1); SODIUM LEVEL 125 MEQ/L (136-145)
[2019-05-10] MEDS: HumaLOG INSULIN (NovoLOG) PER UNIT SC SCH ×4 (08:53→21:00)
[2019-05-10] MEDS: VITAMIN D 1,000 INTERNATIONAL UNITS TABLET PO SCH (08:54)
[2019-05-10] MEDS: MAGNESIUM GLUCONATE 500 MG TAB PO SCH ×4 (08:54→21:09)
[2019-05-10] MEDS: ATENOLOL 25 MG TAB PO SCH (08:54)
[2019-05-10] MEDS: SENOKOT S TAB PO SCH ×2 (08:54→21:00)
[2019-05-10] MEDS: ASCORBIC ACID 500 MG TAB PO SCH ×3 (08:54→21:10)
[2019-05-10] MEDS: amLODIPine 5 MG TAB PO SCH (08:55)
[2019-05-10] MEDS: OMEPRAZOLE 20 MG CAP PO SCH (08:55)
[2019-05-10] MEDS: FOLIC ACID 1 MG TAB PO SCH (08:55)
[2019-05-10] MEDS: busPIRone 5 MG TAB PO SCH ×2 (08:55→21:09)
[2019-05-10] MEDS: CitaloPRAM (CeleXA) 20 MG TAB PO SCH (08:55)
[2019-05-10] MEDS ORDERED: predniSONE 5 MG TAB PO SCH (09:00)
[2019-05-10] MEDS: MIRALAX *UNIT DOSE* 17GM PACKET PO SCH ×2 (09:00→21:00)
[2019-05-10] MEDS: MOM 30ML SUSPENSION UDC PO SCH (09:00)
[2019-05-10] MEDS: PROPYLTHIOURACIL 50 MG TAB PO SCH ×2 (09:03→21:08)
--- NOTE | 2019-05-10 10:03 | IPNPDOC ---
Text Note Date of Service The patient was seen on 05/10/19. NOTE Subjective: No any acute events overnight. Patient stated that he slept well. Patient denies fever, chills, nausea, vomiting, shortness of breath, dysuria Objective: General in moderate distress HEENT: PERRLA, EOMI CV: S1-S2 Lungs: Clear to auscultation bilaterally Abdomen: Nontender, nondistended, colostomy in place Extremity: Status post right hip surgery, dressing intact. No swelling, no cyanosis of lower extremities Neuro: Nonfocal, cranial nerves from 2 through 12 intact Assessment and plan Patient is 74 years old male with past medical history of depression, diabetes, hypertension, COPD presented hospital with right hip fracture. After he fractured patient developed hyperkalemia associated with acute renal failure. Hyponatremia Most likely secondary to Lasix Sodium level of 125 Sodium q2 h Continue to monitor vital signs Acute renal failure superimposed on chronic kidney disease. Resolved Most likely prerenal Improved Hyperkalemia Resolved Secondary to acute on chronic renal failure and hematoma secondary to right hip fracture Hypertension and tachycardia Blood pressures under control The dose of atenolol was increased to 75 mg, continue to monitor PAUL inhibitor on hold Hypomagnesemia Replaced Insomnia Ramelteon Anemia. The patient has acute blood loss anemia related to his right hip fracture and surgery. No urgent intervention is needed at this point. Osteoporosis. The patient was on Fosamax which has been stopped at present due to hip fracture and risk for poor healing with Fosamax. It can probably be resumed in a few week Depression Continue home meds Deconditioning PT/OT continuing treatment and evaluation before discharge VS,Darin, I+O VS, Jessiee, I+O Laboratory Tests 05/09/19 12:53 Calcium Level 8.7 L 05/09/19 21:42 Calcium Level 8.5 L 05/10/19 06:27 Calcium Level 8.8, Red Blood Count 3.25 L, Mean Corpuscular Volume 92.0, Mean Corpuscular Hemoglobin 30.8, Mean Corpuscular Hemoglobin Concent 33.4, Red Cell Distribution Width 13.1 Vital Signs Date Time Temp Pulse Resp B/P (MAP) Pulse Ox O2 Delivery O2 Flow Rate FiO2 05/10/19 08:55 102 149/79 05/10/19 06:00 98.1 19 95 05/07/19 23:00 2.0 05/06/19 19:36 Nasal Cannula I&O- Last 24 Hours up to 6 AM 05/10/19 06:00 Intake Total 3310 ml Output Total 3350 ml Balance -40 ml JERRY SANABRIA DO May 10, 2019 10:03
--- NOTE | 2019-05-10 10:17 | IPNPDOC ---
Date Seen The patient was seen on 05/10/19. Progress Note NEPHROLOGY SERVICE PROGRESS NOTE SUBJECTIVE: Patient is a 74 YO M with history of R hip surgery and subsequent hyperkalemia and IRMA. Mr. Higgins was seen and examined at the bedside this morning. He has no complaints. Continues to work with physical therapy. He is eating and drinking well. No issues with urination, in fact his urination was almost 3L yesterday. His potassium came down nicely but he is now hyponatremic. He is set to go for rehab at [facility] after discharge. OBJECTIVE PHYSICAL EXAMINATION: VITAL SIGNS: Please see below. GENERAL: laying in bed, appears stated age, calm, cooperative, in no acute distress HEENT: EOMI, PERRLA, normocephalic/atraumatic, neck is supple with no ly mphadenopathy or thyromegaly CARDIOVASCULAR: RRR, no murmurs/rubs/gallops RESPIRATORY: Clear to auscultation bilaterally with no adventitious breath sounds appreciated ABDOMINAL: soft, nontender, ostomy is in place, no surrounding erythema EXTREMITIES: no clubbing/cyanosis/edema; there is an incision site at R hip from surgery NEUROLOGICAL: CN 2-12 intact with no obvious focal deficits PSYCHOLOGICAL: AAOx3, normal mood/affect LABORATORY DATA, IMAGING STUDIES, MICROBIOLOGY: Please see below. ASSESSMENT AND PLAN: Patient is a 74 YO M with history of R hip surgery and subsequent hyperkalemia and IRMA. PROBLEMS: 1. Acute on chronic kidney disease: -Cr stable -Urine output acceptable -Lasix stopped due to hyponatremia at 125. Patient encouraged to limit his hydration today and BMP will be rechecked this afternoon to assess his sodium 2. Hyperkalemia: Most likely related to R thigh hematoma and resorption of blood. -Continue Veltassa daily -Magnesium replacement changed to Magnesium Gluconate 500mg PO QID -Responded to one time dose of fludrocortisone. Will await repeat BMP this afte rnoon and will give another dose if needed. 3. Anemia: -Hgb improved to 10.0and patient is asymptomatic -No changes to be made at this time 4. Osteoporosis: -resume home Fosamax in a few weeks 5. Hypertension: -Continue Norvasc, Lasix DISPOSITION: Pending BMP at 1600 and improvement of hyponatremia VS, I&O, 24H, Fishbone Vital Signs/I&O Vital Signs Date Time Temp Pulse Resp B/P (MAP) Pulse Ox O2 Delivery O2 Flow Rate FiO2 05/10/19 08:55 102 149/79 05/10/19 06:00 98.1 19 95 05/07/19 23:00 2.0 05/06/19 19:36 Nasal Cannula I&O- Last 24 Hours up to 6 AM 05/10/19 06:00 Intake Total 3310 ml Output Total 3350 ml Balance -40 ml Laboratory Data 24H LABS Laboratory Tests 2 05/09/19 12:53: Anion Gap 9, Glomerular Filtration Rate > 60.0, Blood Urea Nitrogen 30H, Creatinine 1.18, Sodium Level 124#L, Potassium Level 5.8H, Chloride Level 90L, Carbon Dioxide Level 25, Calcium Level 8.7L 05/09/19 21:42: Anion Gap 7L, Glomerular Filtration Rate > 60.0, Blood Urea Nitrogen 32H, Creatinine 1.07, Sodium Level 125L, Potassium Level 5.1, Chloride Level 89L, Carbon Dioxide Level 29, Calcium Level 8.5L 05/10/19 06:27: Anion Gap 7L, Glomerular Filtration Rate > 60.0, Blood Urea Nitrogen 35H, Creatinine 1.03, Sodium Level 125L, Potassium Level 4.6, Chloride Level 89L, Ca rbon Dioxide Level 29, Calcium Level 8.8, Nucleated Red Blood Cells % (auto) 0.0, Magnesium Level 1.1L CBC/BMP Laboratory Tests 05/09/19 12:53 Calcium Level 8.7 L 05/09/19 21:42 Calcium Level 8.5 L 05/10/19 06:27 Calcium Level 8.8, Red Blood Count 3.25 L, Mean Corpuscular Volume 92.0, Mean Corpuscular Hemoglobin 30.8, Mean Corpuscular Hemoglobin Concent 33.4, Red Cell Distribution Width 13.1 GME ATTESTATION GME ATTESTATION My faculty preceptor for this patient encounter was physically present during the encounter and was fully available. All aspects of the patient interview, examination, medical decision making process, and medical care plan development were reviewed and approved by the faculty preceptor. The faculty preceptor is aware and concurs with the plan as stated in the body of this note and will attest to such by his/her cosignature. SUMEET AVALOS MD May 10, 2019 10:17
[2019-05-10] MEDS ORDERED: MAG SULF 1GM/100ML (MAG RUN) 1 GM in IV 1 EA IV ONE (10:30)
[2019-05-10] MEDS: oxyCODONE 5MG TAB PO PRN ×2 (10:39→21:10)
[2019-05-10] MEDS: PATIROMER SORBITEX CALCIUM 8.4 GM POWDER PACKET (VELTASSA) PO SCH (12:15)
[2019-05-10 15:09] VITALS: BP 149/80
[2019-05-10 16:16] LABS: BLOOD UREA NITROGEN 38 MG/DL (7-18); CALCIUM LEVEL 8.2 MG/DL (8.8-10.2); CARBON DIOXIDE LEVEL 25 MEQ/L (21-32); CHLORIDE LEVEL 89 MEQ/L (98-107); CREATININE FOR GFR 1.21 MG/DL (0.70-1.30); GLOMERULAR FILTRATION RATE > 60.0 (>42); GLUCOSE, FASTING 187 MG/DL (70-100); MAGNESIUM LEVEL 1.5 MG/DL (1.8-2.4); POTASSIUM SERUM 4.9 MEQ/L (3.5-5.1); SODIUM LEVEL 124 MEQ/L (136-145)
[2019-05-10] MEDS: RIVAROXABAN 10 MG TAB (XARELTO) PO SCH (16:55)
[2019-05-10 20:16] VITALS: BP 141/77
[2019-05-10 20:50] LABS: BLOOD UREA NITROGEN 40 MG/DL (7-18); CALCIUM LEVEL 8.1 MG/DL (8.8-10.2); CARBON DIOXIDE LEVEL 26 MEQ/L (21-32); CHLORIDE LEVEL 90 MEQ/L (98-107); CREATININE FOR GFR 1.17 MG/DL (0.70-1.30); GLOMERULAR FILTRATION RATE > 60.0 (>42); GLUCOSE, FASTING 177 MG/DL (70-100); POTASSIUM SERUM 4.8 MEQ/L (3.5-5.1); SODIUM LEVEL 125 MEQ/L (136-145)
[2019-05-10] MEDS ORDERED: SODIUM CHLORIDE 1 GM TAB PO ONE (21:00)
[2019-05-10] MEDS: GABAPENTIN 300 MG CAP PO SCH (21:08)
[2019-05-10] MEDS: AMITRIPTYLINE 25 MG TAB PO SCH (21:08)
[2019-05-10] MEDS: rOPINIRole 2MG TAB PO SCH (21:09)
[2019-05-10] MEDS: RAMELTEON 8 MG TAB (ROZEREM) PO SCH (21:09)
[2019-05-10] MEDS: SIMVASTATIN 20 MG TAB PO SCH (21:10)
[2019-05-11 00:21] LABS: BLOOD UREA NITROGEN 40 MG/DL (7-18); CALCIUM LEVEL 8.1 MG/DL (8.8-10.2); CARBON DIOXIDE LEVEL 27 MEQ/L (21-32); CHLORIDE LEVEL 90 MEQ/L (98-107); CREATININE FOR GFR 1.05 MG/DL (0.70-1.30); GLOMERULAR FILTRATION RATE > 60.0 (>42); GLUCOSE, FASTING 137 MG/DL (70-100); POTASSIUM SERUM 4.8 MEQ/L (3.5-5.1); SODIUM LEVEL 128 MEQ/L (136-145)
[2019-05-11 04:01] LABS: BASO % 0.1 % (0.0-1.0); EOS # 0.8 10^3/uL (0.0-0.5); EOS % 4.8 % (0.0-3.0); HEMATOCRIT 27.3 % (42.0-52.0); HEMOGLOBIN 9.2 g/dl (13.5-17.5); LYMPH # 1.3 10^3/uL (1.5-5.0); LYMPH % 8.1 % (24.0-44.0); MEAN CORPUSCULAR HEMOGLOBIN 31.3 pg (27.0-33.0); MEAN CORPUSCULAR HGB CONC 33.7 g/dl (32.0-36.5); MEAN CORPUSCULAR VOLUME 92.9 fl (80.0-96.0); MONO # 1.7 10^3/uL (0.0-0.8); MONO % 10.5 % (0.0-5.0); NEUTROPHILS # 11.7 10^3/uL (1.5-8.5); NEUTROPHILS % 73.9 % (36.0-66.0); PLATELET COUNT, AUTOMATED 241 10^3/uL (150-450); RED BLOOD COUNT 2.94 10^6/uL (4.30-6.10); WHITE BLOOD COUNT 15.9 10^3/uL (4.0-10.0)
[2019-05-11 04:58] LABS: BLOOD UREA NITROGEN 37 MG/DL (7-18); CREATININE FOR GFR 1.11 MG/DL (0.70-1.30); GLUCOSE, FASTING 152 MG/DL (70-100)
[2019-05-11 04:59] LABS: CARBON DIOXIDE LEVEL 25 MEQ/L (21-32); CHLORIDE LEVEL 92 MEQ/L (98-107); GLOMERULAR FILTRATION RATE > 60.0 (>42); MAGNESIUM LEVEL 1.4 MG/DL (1.8-2.4); POTASSIUM SERUM 4.5 MEQ/L (3.5-5.1); SODIUM LEVEL 128 MEQ/L (136-145)
[2019-05-11] MEDS: oxyCODONE 5MG TAB PO PRN ×2 (05:57→13:01)
[2019-05-11 06:36] VITALS: BP 138/77
[2019-05-11] MEDS ORDERED: SODIUM CHLORIDE 1 GM TAB PO ONE (08:00)
[2019-05-11] MEDS: ADVAIR HFA 115/21MCG INHALER INH SCH ×2 (08:01→18:35)
[2019-05-11] MEDS: HumaLOG INSULIN (NovoLOG) PER UNIT SC SCH ×4 (08:46→20:47)
[2019-05-11] MEDS: PROPYLTHIOURACIL 50 MG TAB PO SCH ×2 (08:47→20:38)
[2019-05-11] MEDS: VITAMIN D 1,000 INTERNATIONAL UNITS TABLET PO SCH (08:47)
[2019-05-11] MEDS: predniSONE 2.5 MG TAB PO SCH (08:47)
[2019-05-11] MEDS: SENOKOT S TAB PO SCH ×2 (08:47→20:39)
[2019-05-11] MEDS: MAGNESIUM GLUCONATE 500 MG TAB PO SCH ×4 (08:48→20:38)
[2019-05-11] MEDS: busPIRone 5 MG TAB PO SCH ×2 (08:48→20:39)
[2019-05-11] MEDS: OMEPRAZOLE 20 MG CAP PO SCH (08:48)
[2019-05-11] MEDS: amLODIPine 5 MG TAB PO SCH (08:48)
[2019-05-11] MEDS: ASCORBIC ACID 500 MG TAB PO SCH ×3 (08:48→20:38)
[2019-05-11] MEDS: FOLIC ACID 1 MG TAB PO SCH (08:48)
[2019-05-11] MEDS: CitaloPRAM (CeleXA) 20 MG TAB PO SCH (08:48)
[2019-05-11] MEDS: ATENOLOL 25 MG TAB PO SCH (08:49)
[2019-05-11] MEDS: MOM 30ML SUSPENSION UDC PO SCH (08:49)
[2019-05-11] MEDS: MIRALAX *UNIT DOSE* 17GM PACKET PO SCH ×2 (08:49→20:38)
[2019-05-11] MEDS ORDERED: MAGNESIUM CHLORIDE 64 MG TABCR (SLO MAG) PO SCH (09:00)
--- NOTE | 2019-05-11 10:37 | IPNPDOC ---
Date Seen The patient was seen on 05/11/19. Progress Note NEPHROLOGY SERVICE PROGRESS NOTE SUBJECTIVE: Patient is a 74 YO M with history of R hip surgery and subsequent hyperkalemia and IRMA. Mr. Higgins was seen and examined at the bedside this morning. He has no complaints. Continues to work with physical therapy. He is eating and drinking well. His potassium normalized and he has been somewhat hyponatremic. He was given salt tabs x2 and told to restrict his fluid intake. It has come up this morning. If it continues to increase he can be sent to rehabilitation at [facility]. OBJECTIVE PHYSICAL EXAMINATION: VITAL SIGNS: Please see below. GENERAL: laying in bed, appears stated age, calm, cooperative, in no acute distress HEENT: EOMI, PERRLA, normocephalic/atraumatic, neck is supple with no lymphadenopathy or thyromegaly CARDIOVASCULAR: RRR, no murmurs/rubs/gallops RESPIRATORY: Clear to auscultation bilaterally with no adventitious breath sounds appreciated ABDOMINAL: soft, nontender, ostomy is in place, no surrounding erythema EXTREMITIES: no clubbing/cyanosis/edema; there is an incision site at R hip from surgery NEUROLOGICAL: CN 2-12 intact with no obvious focal deficits PSYCHOLOGICAL: AAOx3, normal mood/affect LABORATORY DATA, IMAGING STUDIES, MICROBIOLOGY: Please see below. ASSESSMENT AND PLAN: Patient is a 74 YO M with history of R hip surgery and subsequent hyperkalemia and IRMA. PROBLEMS: 1. Acute on chronic kidney disease: -Cr stable -Urine output acceptable -s/p salt tabs x2 and fluid restriction. Will recheck BMP and if it is up to 130 he can be safely discharged 2. Hyperkalemia: Most likely related to R thigh hematoma and resorption of blood. -d/c'd Veltassa -continue Magnesium Gluconate 500mg PO QID -s/p fludrocortisone. K is WNL today 3. Anemia: -Hgb improved to 9.2 and patient is asymptomatic -No changes to be made at this time 4. Osteoporosis: -resume home Fosamax in a few weeks 5. Hypertension: -Continue Norvasc, Lasix DISPOSITION: Pending improvement of hyponatremia VS, I&O, 24H, Fishbone Vital Signs/I&O Vital Signs Date Time Temp Pulse Resp B/P (MAP) Pulse Ox O2 Delivery O2 Flow Rate FiO2 05/11/19 08:49 105 138/77 05/11/19 06:36 98.0 20 94 05/07/19 23:00 2.0 05/06/19 19:36 Nasal Cannula I&O- Last 24 Hours up to 6 AM 05/11/19 06:00 Intake Total 1960 ml Output Total 1825 ml Balance 135 ml Laboratory Data 24H LABS Laboratory Tests 2 05/10/19 15:45: Anion Gap 10, Glomerular Filtration Rate > 60.0, Blood Urea Nitrogen 38H, Creatinine 1.21, Sodium Level 124L, Potassium Level 4.9, Chloride Level 89L, Ca rbon Dioxide Level 25, Calcium Level 8.2L, Magnesium Level 1.5L 05/10/19 19:54: Anion Gap 9, Glomerular Filtration Rate > 60.0, Blood Urea Nitrogen 40H, Creatinine 1.17, Sodium Level 125L, Potassium Level 4.8, Chloride Level 90L, Carbon Dioxide Level 26, Calcium Level 8.1L, Thyroid Stimulating Hormone (TSH) 1.310 05/10/19 23:45: Anion Gap 11, Glomerular Filtration Rate > 60.0, Blood Urea Nitrogen 40H, Creatinine 1.05, Sodium Level 128L, Potassium Level 4.8, Chloride Level 90L, Carbon Dioxide Level 27, Calcium Level 8.1L 05/11/19 03:46: Anion Gap 11, Glomerular Filtration Rate > 60.0, Blood Urea Nitrogen 37H, Creatinine 1.11, Sodium Level 128L, Potassium Level 4.5, Chloride Level 92L, Carbon Dioxide Level 25, Calcium Level 8.0L, Magnesium Level 1.4L, Cortisol AM Sample 20.0 05/11/19 03:49: Immature Granulocyte % (Auto) 2.6, White Blood Count 15.9H, Red Blood Count 2.94L, Hemoglobin 9.2L, Hematocrit 27.3L, Mean Corpuscular Volume 92.9, Mean Corpuscular Hemoglobin 31.3, Mean Corpuscular Hemoglobin Concent 33.7, Red Cell Distribution Width 13.2, Platelet Count 241, Neutrophils (%) (Auto) 73.9H, Lymp hocytes (%) (Auto) 8.1L, Monocytes (%) (Auto) 10.5H, Eosinophils (%) (Auto) 4.8H, Basophils (%) (Auto) 0.1, Neutrophils # (Auto) 11.7H, Lymphocytes # (Auto) 1.3L, Monocytes # (Auto) 1.7H, Eosinophils # (Auto) 0.8H, Basophils # (Auto) 0.0, Nucleated Red Blood Cells % (auto) 0.0 CBC/BMP Laboratory Tests 05/10/19 11:38 05/10/19 13:41 05/10/19 15:45 Calcium Level 8.2 L 05/10/19 17:54 05/10/19 19:54 Calcium Level 8.1 L 05/10/19 21:37 05/10/19 23:45 Calcium Level 8.1 L 05/11/19 01:48 05/11/19 03:46 Calcium Level 8.0 L 05/11/19 03:49 Red Blood Count 2.94 L, Mean Corpuscular Volume 92.9, Mean Corpuscular Hemoglobin 31.3, Mean Corpuscular Hemoglobin Concent 33.7, Red Cell Distribution Width 13.2, Neutrophils (%) (Auto) 73.9 H, Lymphocytes (%) (Auto) 8.1 L, Monocytes (%) (Auto) 10.5 H, Eosinophils (%) (Auto) 4.8 H, Basophils (%) (Auto) 0.1, Neutrophils # (Auto) 11.7 H, Lymphocytes # (Auto) 1.3 L, Monocytes # (Auto) 1.7 H, Eosinophils # (Auto) 0.8 H, Basophils # (Auto) 0.0 GME ATTESTATION GME ATTESTATION My faculty preceptor for this patient encounter was physically present during the encounter and was fully available. All aspects of the patient interview, examination, medical decision making process, and medical care plan development were reviewed and approved by the faculty preceptor. The faculty preceptor is aware and concurs with the plan as stated in the body of this note and will attest to such by his/her cosignature. SUMEET AVALOS MD May 11, 2019 10:37
[2019-05-11 10:52] LABS: SODIUM LEVEL 125 MEQ/L (136-145)
[2019-05-11] MEDS: traMADol 50 MG TAB PO PRN ×2 (10:52→20:39)
--- NOTE | 2019-05-11 11:10 | IPNPDOC ---
Text Note Date of Service The patient was seen on 05/11/19. NOTE Subjective: No any acute events overnight. Patient denies fever, chills, nausea, vomiting, shortness of breath, dysuria Objective: General in moderate distress HEENT: PERRLA, EOMI CV: S1-S2 Lungs: Clear to auscultation bilaterally Abdomen: Nontender, nondistended, colostomy in place Extremity: Status post right hip surgery, dressing intact. No swelling, no cyanosis of lower extremities Neuro: Nonfocal, cranial nerves from 2 through 12 intact Assessment and plan Patient is 74 years old male with past medical history of depression, diabetes, hypertension, COPD presented hospital with right hip fracture. After he fractured patient developed hyperkalemia associated with acute renal failure. Hyponatremia Most likely secondary to Lasix Sodium level was 128 in the morning then dropped to 125 Salt tablet 1 g 3 times a day Fluid restriction to 1200cc BMP every 4 hours Continue to monitor vital signs Acute renal failure superimposed on chronic kidney disease. Resolved Most likely prerenal Improved Hyperkalemia Resolved Secondary to acute on chronic renal failure and hematoma secondary to right hip fracture Hypertension and tachycardia Blood pressures under control The dose of atenolol was increased to 75 mg, continue to monitor PAUL inhibitor on hold Hypomagnesemia Replaced Insomnia Ramelteon Anemia. The patient has acute blood loss anemia related to his right hip fracture and surgery. No urgent intervention is needed at this point. Osteoporosis. The patient was on Fosamax which has been stopped at present due to hip fracture and risk for poor healing with Fosamax. It can probably be resumed in a few week Depression Continue home meds Deconditioning PT/OT continuing treatment and evaluation before discharge VSDarin, I+O VSDarin, I+O Laboratory Tests 05/10/19 11:38 05/10/19 13:41 05/10/19 15:45 Calcium Level 8.2 L 05/10/19 17:54 05/10/19 19:54 Calcium Level 8.1 L 05/10/19 21:37 05/10/19 23:45 Calcium Level 8.1 L 05/11/19 01:48 05/11/19 03:46 Calcium Level 8.0 L 05/11/19 03:49 Red Blood Count 2.94 L, Mean Corpuscular Volume 92.9, Mean Corpuscular Hemoglobin 31.3, Mean Corpuscular Hemoglobin Concent 33.7, Red Cell Distribution Width 13.2, Neutrophils (%) (Auto) 73.9 H, Lymphocytes (%) (Auto) 8.1 L, Monocytes (%) (Auto) 10.5 H, Eosinophils (%) (Auto) 4.8 H, Basophils (%) (Auto) 0.1, Neutrophils # (Auto) 11.7 H, Lymphocytes # (Auto) 1.3 L, Monocytes # (Auto) 1.7 H, Eosinophils # (Auto) 0.8 H, Basophils # (Auto) 0.0 05/11/19 10:05 Vital Signs Date Time Temp Pulse Resp B/P (MAP) Pulse Ox O2 Delivery O2 Flow Rate FiO2 05/11/19 10:52 18 05/11/19 08:49 105 138/77 05/11/19 06:36 98.0 94 05/07/19 23:00 2.0 05/06/19 19:36 Nasal Cannula I&O- Last 24 Hours up to 6 AM 05/11/19 05:59 Intake Total 1710 ml Output Total 1875 ml Balance -165 ml JERRY SANABRIA DO May 11, 2019 11:10
[2019-05-11 11:32] LABS: BLOOD UREA NITROGEN 42 MG/DL (7-18); CALCIUM LEVEL 8.5 MG/DL (8.8-10.2); CARBON DIOXIDE LEVEL 26 MEQ/L (21-32); CHLORIDE LEVEL 90 MEQ/L (98-107); CREATININE FOR GFR 1.22 MG/DL (0.70-1.30); GLOMERULAR FILTRATION RATE > 60.0 (>42); GLUCOSE, FASTING 246 MG/DL (70-100); POTASSIUM SERUM 4.5 MEQ/L (3.5-5.1)
[2019-05-11] MEDS: SODIUM CHLORIDE 1 GM TAB PO SCH ×3 (13:00→20:38)
[2019-05-11 14:47] VITALS: BP 136/77
[2019-05-11 15:49] LABS: BLOOD UREA NITROGEN 43 MG/DL (7-18); CALCIUM LEVEL 8.4 MG/DL (8.8-10.2); CARBON DIOXIDE LEVEL 26 MEQ/L (21-32); CHLORIDE LEVEL 93 MEQ/L (98-107); CREATININE FOR GFR 1.18 MG/DL (0.70-1.30); GLOMERULAR FILTRATION RATE > 60.0 (>42); GLUCOSE, FASTING 110 MG/DL (70-100); POTASSIUM SERUM 4.8 MEQ/L (3.5-5.1); SODIUM LEVEL 127 MEQ/L (136-145)
[2019-05-11] MEDS: RIVAROXABAN 10 MG TAB (XARELTO) PO SCH (18:13)
[2019-05-11 19:38] LABS: CALCIUM LEVEL 8.1 MG/DL (8.8-10.2); CREATININE FOR GFR 1.27 MG/DL (0.70-1.30); GLOMERULAR FILTRATION RATE 59.2 (>42); POTASSIUM SERUM 4.6 MEQ/L (3.5-5.1)
[2019-05-11 20:00] VITALS: BP 135/79
[2019-05-11] MEDS: RAMELTEON 8 MG TAB (ROZEREM) PO SCH (20:38)
[2019-05-11] MEDS: rOPINIRole 2MG TAB PO SCH (20:38)
[2019-05-11] MEDS: GABAPENTIN 300 MG CAP PO SCH (20:39)
[2019-05-11] MEDS: AMITRIPTYLINE 25 MG TAB PO SCH (20:39)
[2019-05-11] MEDS: SIMVASTATIN 20 MG TAB PO SCH (20:39)
[2019-05-11 23:06] LABS: CREATININE FOR GFR 1.27 MG/DL (0.70-1.30); GLOMERULAR FILTRATION RATE 59.2 (>42); POTASSIUM SERUM 4.5 MEQ/L (3.5-5.1)
[2019-05-12 03:13] LABS: BLOOD UREA NITROGEN 48 MG/DL (7-18); CALCIUM LEVEL 8.2 MG/DL (8.8-10.2); CARBON DIOXIDE LEVEL 25 MEQ/L (21-32); CHLORIDE LEVEL 95 MEQ/L (98-107); CREATININE FOR GFR 1.21 MG/DL (0.70-1.30); GLOMERULAR FILTRATION RATE > 60.0 (>42); GLUCOSE, FASTING 170 MG/DL (70-100); POTASSIUM SERUM 4.6 MEQ/L (3.5-5.1); SODIUM LEVEL 127 MEQ/L (136-145)
[2019-05-12 06:07] VITALS: BP 140/75
[2019-05-12 06:47] LABS: BASO % 0.1 % (0.0-1.0); EOS # 0.2 10^3/uL (0.0-0.5); EOS % 1.2 % (0.0-3.0); HEMATOCRIT 26.9 % (42.0-52.0); HEMOGLOBIN 8.8 g/dl (13.5-17.5); LYMPH % 6.4 % (24.0-44.0); MEAN CORPUSCULAR HEMOGLOBIN 30.6 pg (27.0-33.0); MEAN CORPUSCULAR HGB CONC 32.7 g/dl (32.0-36.5); MEAN CORPUSCULAR VOLUME 93.4 fl (80.0-96.0); MONO % 13.5 % (0.0-5.0); NEUTROPHILS # 12.1 10^3/uL (1.5-8.5); NEUTROPHILS % 76.8 % (36.0-66.0); PLATELET COUNT, AUTOMATED 239 10^3/uL (150-450); RED BLOOD COUNT 2.88 10^6/uL (4.30-6.10); WHITE BLOOD COUNT 15.7 10^3/uL (4.0-10.0)
[2019-05-12 07:05] LABS: CALCIUM LEVEL 8.5 MG/DL (8.8-10.2); CREATININE FOR GFR 1.29 MG/DL (0.70-1.30); GLOMERULAR FILTRATION RATE 58.1 (>42); MAGNESIUM LEVEL 1.4 MG/DL (1.8-2.4); POTASSIUM SERUM 4.7 MEQ/L (3.5-5.1)
[2019-05-12 07:10] LABS: MONO # 2.1 10^3/uL (0.0-0.8)
[2019-05-12] MEDS: ADVAIR HFA 115/21MCG INHALER INH SCH ×2 (07:51→19:54)
[2019-05-12] MEDS: CitaloPRAM (CeleXA) 20 MG TAB PO SCH (08:37)
[2019-05-12] MEDS: busPIRone 5 MG TAB PO SCH ×2 (08:38→21:40)
[2019-05-12] MEDS: VITAMIN D 1,000 INTERNATIONAL UNITS TABLET PO SCH (08:38)
[2019-05-12] MEDS: ATENOLOL 25 MG TAB PO SCH (08:39)
[2019-05-12] MEDS: MAGNESIUM GLUCONATE 500 MG TAB PO SCH ×4 (08:39→21:40)
[2019-05-12] MEDS: amLODIPine 5 MG TAB PO SCH (08:39)
[2019-05-12] MEDS: FOLIC ACID 1 MG TAB PO SCH (08:40)
[2019-05-12] MEDS: predniSONE 2.5 MG TAB PO SCH (08:40)
[2019-05-12] MEDS: OMEPRAZOLE 20 MG CAP PO SCH (08:40)
[2019-05-12] MEDS: ASCORBIC ACID 500 MG TAB PO SCH ×3 (08:40→21:38)
[2019-05-12] MEDS: PROPYLTHIOURACIL 50 MG TAB PO SCH ×2 (08:40→21:35)
[2019-05-12] MEDS: SODIUM CHLORIDE 1 GM TAB PO SCH ×2 (08:40→15:16)
[2019-05-12] MEDS: HumaLOG INSULIN (NovoLOG) PER UNIT SC SCH ×4 (08:41→21:43)
[2019-05-12] MEDS: SENOKOT S TAB PO SCH ×2 (08:41→21:00)
[2019-05-12] MEDS: MIRALAX *UNIT DOSE* 17GM PACKET PO SCH ×2 (08:41→21:00)
[2019-05-12] MEDS: MOM 30ML SUSPENSION UDC PO SCH (08:41)
[2019-05-12] MEDS: oxyCODONE 5MG TAB PO PRN ×3 (08:50→21:37)
--- NOTE | 2019-05-12 09:43 | ECGEPIP ---
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
[2019-05-12] MEDS ORDERED: MAG SULF 1GM/100ML (MAG RUN) 1 GM in IV 1 EA IV ONE (10:00)
[2019-05-12] MEDS ORDERED: PERCOCET 5MG/325MG TAB PO PRN (10:00)
[2019-05-12] MEDS: traMADol 50 MG TAB PO PRN ×2 (10:04→17:20)
[2019-05-12 11:32] LABS: BLOOD UREA NITROGEN 47 MG/DL (7-18); CALCIUM LEVEL 8.3 MG/DL (8.8-10.2); CARBON DIOXIDE LEVEL 24 MEQ/L (21-32); CHLORIDE LEVEL 96 MEQ/L (98-107); CREATININE FOR GFR 1.25 MG/DL (0.70-1.30); GLOMERULAR FILTRATION RATE > 60.0 (>42); GLUCOSE, FASTING 246 MG/DL (70-100); POTASSIUM SERUM 4.4 MEQ/L (3.5-5.1); SODIUM LEVEL 129 MEQ/L (136-145)
[2019-05-12] MEDS ORDERED: MAGNESIUM GLUCONATE 500 MG TAB PO ONE (12:00)
[2019-05-12 13:38] LABS: SODIUM,RANDOM URINE 21 MEQ/L
[2019-05-12] MEDS ORDERED: FUROSEMIDE 40 MG/4 ML VIAL (J1940) IV ONE (14:00)
[2019-05-12 14:44] LABS: FERRITIN 535 NG/ML (26-388); IRON (FE) 10 UG/DL (65-175); PERCENT SATURATION 4.8 % (19.7-50.0); TOTAL IRON BINDING CAPACITY 208 UG/DL (250-450); URIC ACID 8.7 MG/DL (3.5-7.2)
[2019-05-12 14:49] VITALS: BP 127/65
[2019-05-12 15:25] LABS: BLOOD UREA NITROGEN 48 MG/DL (7-18); CALCIUM LEVEL 8.6 MG/DL (8.8-10.2); CARBON DIOXIDE LEVEL 26 MEQ/L (21-32); CHLORIDE LEVEL 96 MEQ/L (98-107); CREATININE FOR GFR 1.25 MG/DL (0.70-1.30); GLOMERULAR FILTRATION RATE > 60.0 (>42); GLUCOSE, FASTING 141 MG/DL (70-100); POTASSIUM SERUM 4.6 MEQ/L (3.5-5.1); SODIUM LEVEL 129 MEQ/L (136-145)
--- NOTE | 2019-05-12 15:46 | IPNPDOC ---
Text Note Date of Service The patient was seen on 05/12/19. NOTE Subjective: Patient complains of multiple joints pain : Knee bilaterally, an kles, elbows Patient denies fever, chills, nausea, vomiting, shortness of breath, dysuria Objective: General in moderate distress HEENT: PERRLA, EOMI CV: S1-S2 Lungs: Clear to auscultation bilaterally Abdomen: Nontender, nondistended, colostomy in place Extremity: Status post right hip surgery, dressing intact. No swelling, no cyanosis of lower extremities Neuro: Nonfocal, cranial nerves from 2 through 12 intact Assessment and plan Patient is 74 years old male with past medical history of depression, diabetes, hypertension, COPD presented hospital with right hip fracture. After he fractured patient developed hyperkalemia associated with acute renal failure. Osteoarthritis Pain management Continue prednisone 10 mg Hyponatremia Most likely secondary to Lasix Corrected sodium today 131 Acute renal failure superimposed on chronic kidney disease. Resolved Most likely prerenal Improved Hyperkalemia Resolved Secondary to acute on chronic renal failure and hematoma secondary to right hip fracture Hypertension and tachycardia Blood pressures under control The dose of atenolol was increased to 75 mg, continue to monitor PAUL inhibitor on hold Hypomagnesemia Replaced Insomnia Ramelteon Anemia. The patient has acute blood loss anemia related to his right hip fracture and surgery. No urgent intervention is needed at this point. Osteoporosis. The patient was on Fosamax which has been stopped at present due to hip fracture and risk for poor healing with Fosamax. It can probably be resumed in a few week Depression Continue home meds Deconditioning PT/OT continuing treatment and evaluation before discharge VS,Darin, I+O VS, Jessiee, I+O Laboratory Tests 05/11/19 19:04 Calcium Level 8.1 L 05/11/19 22:43 Calcium Level 8.0 L 05/12/19 02:49 Calcium Level 8.2 L 05/12/19 06:23 Calcium Level 8.5 L, Red Blood Count 2.88 L, Mean Corpuscular Volume 93.4, Mean Corpuscular Hemoglobin 30.6, Mean Corpuscular Hemoglobin Concent 32.7, Red Cell Distribution Width 13.2, Neutrophils (%) (Auto) 76.8 H, Lymphocytes (%) (Auto) 6.4 L, Monocytes (%) (Auto) 13.5 H, Eosinophils (%) (Auto) 1.2, Basophils (%) (Auto) 0.1, Neutrophils # (Auto) 12.1 H, Lymphocytes # (Auto) 1.0 L, Monocytes # (Auto) 2.1 H, Eosinophils # (Auto) 0.2, Basophils # (Auto) 0.0 05/12/19 10:57 Calcium Level 8.3 L 05/12/19 14:56 Calcium Level 8.6 L Vital Signs Date Time Temp Pulse Resp B/P (MAP) Pulse Ox O2 Delivery O2 Flow Rate FiO2 05/12/19 15:16 20 05/12/19 14:49 99.4 96 127/65 (85) 93 05/07/19 23:00 2.0 05/06/19 19:36 Nasal Cannula I&O- Last 24 Hours up to 6 AM 05/12/19 06:00 Intake Total 1550 ml Output Total 1600 ml Balance -50 ml JERRY SANABRIA DO May 12, 2019 15:46
[2019-05-12] MEDS: FUROSEMIDE 40 MG TAB PO SCH (16:17)
[2019-05-12 16:58] LABS: OSMOLALITY URINE 411 MOSM/KG (500-800)
[2019-05-12] MEDS: RIVAROXABAN 10 MG TAB (XARELTO) PO SCH (17:21)
[2019-05-12] MEDS: AMITRIPTYLINE 25 MG TAB PO SCH (21:38)
[2019-05-12] MEDS: SIMVASTATIN 20 MG TAB PO SCH (21:38)
[2019-05-12] MEDS: rOPINIRole 2MG TAB PO SCH (21:39)
[2019-05-12] MEDS: GABAPENTIN 300 MG CAP PO SCH (21:39)
[2019-05-12] MEDS: RAMELTEON 8 MG TAB (ROZEREM) PO SCH (21:41)
[2019-05-12] MEDS: LEVEMIR (INSULIN DETEMIR) 1 UNITS/0.01ML SC SCH (21:42)
[2019-05-12 21:45] VITALS: BP 135/73
[2019-05-13] MEDS ORDERED: XARE10TA PO (05:36)
[2019-05-13 06:50] VITALS: BP 132/68
[2019-05-13 06:56] LABS: BASO % 0.2 % (0.0-1.0); EOS # 0.4 10^3/uL (0.0-0.5); EOS % 2.1 % (0.0-3.0); HEMATOCRIT 26.3 % (42.0-52.0); HEMOGLOBIN 8.6 g/dl (13.5-17.5); LYMPH # 1.3 10^3/uL (1.5-5.0); LYMPH % 7.8 % (24.0-44.0); MEAN CORPUSCULAR HEMOGLOBIN 30.6 pg (27.0-33.0); MEAN CORPUSCULAR HGB CONC 32.7 g/dl (32.0-36.5); MEAN CORPUSCULAR VOLUME 93.6 fl (80.0-96.0); MONO % 14.3 % (0.0-5.0); NEUTROPHILS # 12.7 10^3/uL (1.5-8.5); NEUTROPHILS % 74.6 % (36.0-66.0); PLATELET COUNT, AUTOMATED 241 10^3/uL (150-450); RED BLOOD COUNT 2.81 10^6/uL (4.30-6.10)
[2019-05-13 07:14] LABS: CALCIUM LEVEL 8.7 MG/DL (8.8-10.2); CREATININE FOR GFR 1.27 MG/DL (0.70-1.30); GLOMERULAR FILTRATION RATE 59.2 (>42); MAGNESIUM LEVEL 1.5 MG/DL (1.8-2.4); POTASSIUM SERUM 4.6 MEQ/L (3.5-5.1)
[2019-05-13 07:25] LABS: MONO # 2.4 10^3/uL (0.0-0.8)
[2019-05-13] MEDS: ADVAIR HFA 115/21MCG INHALER INH SCH ×2 (07:47→19:40)
[2019-05-13] MEDS: OMEPRAZOLE 20 MG CAP PO SCH (08:13)
[2019-05-13] MEDS: SENOKOT S TAB PO SCH ×2 (08:14→21:24)
[2019-05-13] MEDS: amLODIPine 5 MG TAB PO SCH (08:14)
[2019-05-13] MEDS: PROPYLTHIOURACIL 50 MG TAB PO SCH ×2 (08:14→21:25)
[2019-05-13] MEDS: CitaloPRAM (CeleXA) 20 MG TAB PO SCH (08:14)
[2019-05-13] MEDS: FOLIC ACID 1 MG TAB PO SCH (08:15)
[2019-05-13] MEDS: ATENOLOL 25 MG TAB PO SCH (08:15)
[2019-05-13] MEDS: busPIRone 5 MG TAB PO SCH ×2 (08:15→21:25)
[2019-05-13] MEDS: MAGNESIUM GLUCONATE 500 MG TAB PO SCH ×2 (08:15→12:38)
[2019-05-13] MEDS: VITAMIN D 1,000 INTERNATIONAL UNITS TABLET PO SCH (08:16)
[2019-05-13] MEDS: FUROSEMIDE 40 MG TAB PO SCH ×2 (08:16→21:25)
[2019-05-13] MEDS: ASCORBIC ACID 500 MG TAB PO SCH (08:16)
[2019-05-13] MEDS: LEVEMIR (INSULIN DETEMIR) 1 UNITS/0.01ML SC SCH ×2 (08:17→21:23)
[2019-05-13] MEDS: HumaLOG INSULIN (NovoLOG) PER UNIT SC SCH ×4 (08:17→21:24)
[2019-05-13] MEDS: MIRALAX *UNIT DOSE* 17GM PACKET PO SCH ×3 (08:29→21:24)
[2019-05-13] MEDS: MOM 30ML SUSPENSION UDC PO SCH (08:29)
[2019-05-13] MEDS ORDERED: predniSONE 10 MG TAB PO SCH (09:00)
[2019-05-13] MEDS ORDERED: COLCHICINE 0.6 MG TAB PO STA (12:20)
[2019-05-13] MEDS: IRON SUCROSE 200 MG in NS 100 ML IV SCH (12:50)
--- NOTE | 2019-05-13 12:58 | IPNPDOC ---
Text Note Date of Service The patient was seen on 05/13/19. NOTE Subjective: Patient stated that his joint pain subsided Patient denies fever, chills, nausea, vomiting, shortness of breath, dysuria Objective: General in moderate distress HEENT: PERRLA, EOMI CV: S1-S2 Lungs: Clear to auscultation bilaterally Abdomen: Nontender, nondistended, colostomy in place Extremity: Status post right hip surgery, dressing intact. No swelling, no cy anosis of lower extremities Neuro: Nonfocal, cranial nerves from 2 through 12 intact Assessment and plan Patient is 74 years old male with past medical history of depression, diabetes, hypertension, COPD presented hospital with right hip fracture. After he fractured patient developed hyperkalemia associated with acute renal failure. Osteoarthritis Pain management Continue prednisone 10 mg Hyponatremia Improved Most likely secondary to Lasix Acute renal failure superimposed on chronic kidney disease. Resolved Most likely prerenal Improved Hyperkalemia Resolved Secondary to acute on chronic renal failure and hematoma secondary to right hip fracture Hypertension and tachycardia Blood pressures under control The dose of atenolol was increased to 75 mg, continue to monitor PAUL inhibitor on hold Hypomagnesemia Replaced Insomnia Ramelteon Anemia. The patient has acute blood loss anemia related to his right hip fracture and surgery. No urgent intervention is needed at this point. Osteoporosis. The patient was on Fosamax which has been stopped at present due to hip fracture and risk for poor healing with Fosamax. It can probably be resumed in a few week Depression Continue home meds Deconditioning PT/OT continuing treatment and evaluation before discharge VS,Fishbone, I+O VS, Fishbone, I+O Laboratory Tests 05/12/19 14:56 Calcium Level 8.6 L 05/13/19 06:35 Calcium Level 8.7 L, Red Blood Count 2.81 L, Mean Corpuscular Volume 93.6, Mean Corpuscular Hemoglobin 30.6, Mean Corpuscular Hemoglobin Concent 32.7, Red Cell Distribution Width 13.2, Neutrophils (%) (Auto) 74.6 H, Lymphocytes (%) (Auto) 7.8 L, Monocytes (%) (Auto) 14.3 H, Eosinophils (%) (Auto) 2.1, Basophils (%) (Auto) 0.2, Neutrophils # (Auto) 12.7 H, Lymphocytes # (Auto) 1.3 L, Monocytes # (Auto) 2.4 H, Eosinophils # (Auto) 0.4, Basophils # (Auto) 0.0 Vital Signs Date Time Temp Pulse Resp B/P (MAP) Pulse Ox O2 Delivery O2 Flow Rate FiO2 05/13/19 06:50 98.6 95 18 132/68 (89) 88 05/07/19 23:00 2.0 I&O- Last 24 Hours up to 6 AM 05/13/19 06:00 Intake Total 1490 ml Output Total 1375 ml Balance 115 ml JERRY SANABRIA DO May 13, 2019 12:58
[2019-05-13] MEDS ORDERED: predniSONE 10 MG TAB PO ONE (13:00)
[2019-05-13] MEDS ORDERED: COLCHICINE 0.6 MG TAB PO ONE (13:30)
[2019-05-13 14:00] VITALS: BP 130/53
--- NOTE | 2019-05-13 15:46 | IPN ---
DATE: 05/13/2019 SUBJECTIVE: Patient was seen and examined at the bedside today morning. He is laying in the bed. He reports that his pain in the joints was 10/10 yesterday and 8/10 today. His prednisone dose was increased to 10 mg by mouth daily. Uric acid level was checked yesterday and was high. He also shakes hands with the left hand and reports that he has severe pain in the right wrist as well. Patient most likely has developed acute polyarticular gout. He was given a dose of Lasix yesterday. Sodium is stable at 129 and renal function is stable. He has been started on Lasix orally 40 mg daily which I have changed to 40 mg by mouth twice a day. OBJECTIVE: VITAL SIGNS: Temperature is 98.6 degrees Fahrenheit, blood pressure 132/68, pulse is 95, respiratory rate of 18, saturating 80% on room air. INTAKE AND OUTPUT: Urine output recorded is 1325 mL yesterday, 775 mL so far today since overnight. Weight in the bed scale is not available. PHYSICAL EXAMINATION: GENERAL: Patient is awake, alert, oriented times three, in mild painful distress, laying in the bed. HEAD AND NECK EXAM: Extraocular muscles intact. Pupils equally round and reactive to light. Mucous membranes are moist. Neck is supple. There is no jugular venous distention (JVD). CARDIOVASCULAR: S1, S2. Regular rate. 1+ edema of the lower extremities. RESPIRATORY: Chest is clear to auscultation bilaterally. Bilateral equal air entry. No rales or rhonchi. ABDOMEN: Soft. Positive bowel sounds. Nontender. No organomegaly. MUSCULOSKELETAL: Decreased range of movement of the bilateral lower extremities. Right hip has a surgical dressing. He also has pain in the ankles and toes in both bilateral feet and he has decreased range of movement of the right wrist, which is tender. CENTRAL NERVOUS SYSTEM ([employer]PER[employer]OR): No focal deficit. Patient is able to communicate and moves extremities and follows commands. LABORATORY REVIEW: Complete blood count (CBC) showed a WBC 17, hemoglobin 8.6, platelets 241. Urine osmolality done yesterday was 411 units, sodium was 21. Basic metabolic panel (BMP) showed sodium 129, potassium 4.6, chloride 95, bicarbonate 25, BUN 47, creatinine is 1.2. Uric acid done yesterday was 8.7, calcium is 8.7, magnesium is 1.5. Iron levels done yesterday showed iron of 10, total iron binding capacity (TIBC) 208, transferrin saturation 4.8 and ferritin was 535. CURRENT INPATIENT MEDICATIONS: Patient's medications were all reviewed by me. His prednisone dose was changed to 10 mg daily, but I have increased the dose to 40 mg by mouth daily for a total of four days, then it will be tapered down to 10 mg daily after four day dose. I have also ordered a dose of colchicine and I am starting the patient on allopurinol three days after starting the high dose prednisone. I have changed his furosemide to 40 mg by mouth twice a day. I have decreased the vitamin C to 500 mg by mouth daily ASSESSMENT AND PLAN: 1. Hyponatremia. 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 His urine osmolality was very high despite being hyponatremic. Continue the salt tablet 1 gram by mouth three times a day. Lasix dose has been increased to 40 mg by mouth twice a day, which would help dilute the urine and improve hyponatremia. 2. Acute polyarticular gout. I have started the patient on colchicine dose 1.2 mg STAT, followed by 0.6 mg in 1 hour, followed by 0.6 mg by mouth daily for a total of one week. I am also giving him a combination of prednisone 40 mg daily for a total of four days and then taper it down to 10 mg daily. Patient will start allopurinol 300 mg by mouth daily after four days. 3. Iron-deficiency anemia. Patient has been started on intravenous (IV) Venofer. No need of blood transfusion at this time. 4. Hypomagnesemia. Magnesium dose is being changed to magnesium oxide 800 mg by mouth twice a day. 5. Hypertension with chronic kidney disease. Blood pressure is acceptable. Continue current regimen of amlodipine 5 mg by mouth daily, atenolol 75 mg by mouth daily. 6. Lower extremity edema. Patient is on Lasix 40 mg by mouth twice a day. Edema would slowly improve.
[2019-05-13] MEDS: RIVAROXABAN 10 MG TAB (XARELTO) PO SCH (17:31)
[2019-05-13] MEDS: oxyCODONE 5MG TAB PO PRN (17:32)
[2019-05-13 19:42] VITALS: O2SAT 91
[2019-05-13] MEDS: SIMVASTATIN 20 MG TAB PO SCH (21:24)
[2019-05-13] MEDS: MAGNESIUM OXIDE 400 MG TAB (MAG-OX) PO SCH (21:24)
[2019-05-13] MEDS: GABAPENTIN 300 MG CAP PO SCH (21:24)
[2019-05-13] MEDS: RAMELTEON 8 MG TAB (ROZEREM) PO SCH (21:25)
[2019-05-13] MEDS: rOPINIRole 2MG TAB PO SCH (21:26)
[2019-05-13] MEDS: AMITRIPTYLINE 25 MG TAB PO SCH (21:26)
[2019-05-13 22:00] VITALS: BP 132/66
[2019-05-14 05:39] LABS: BASO % 0.1 % (0.0-1.0); EOS % 0.1 % (0.0-3.0); HEMATOCRIT 24.8 % (42.0-52.0); HEMOGLOBIN 8.4 g/dl (13.5-17.5); LYMPH # 1.1 10^3/uL (1.5-5.0); LYMPH % 6.1 % (24.0-44.0); MEAN CORPUSCULAR HEMOGLOBIN 31.2 pg (27.0-33.0); MEAN CORPUSCULAR HGB CONC 33.9 g/dl (32.0-36.5); MEAN CORPUSCULAR VOLUME 92.2 fl (80.0-96.0); MONO # 1.8 10^3/uL (0.0-0.8); MONO % 10.2 % (0.0-5.0); NEUTROPHILS # 14.4 10^3/uL (1.5-8.5); NEUTROPHILS % 80.9 % (36.0-66.0); PLATELET COUNT, AUTOMATED 260 10^3/uL (150-450); RED BLOOD COUNT 2.69 10^6/uL (4.30-6.10); WHITE BLOOD COUNT 17.8 10^3/uL (4.0-10.0)
[2019-05-14 06:00] VITALS: BP 125/67
[2019-05-14 06:09] LABS: BLOOD UREA NITROGEN 49 MG/DL (7-18); CALCIUM LEVEL 8.4 MG/DL (8.8-10.2); CARBON DIOXIDE LEVEL 25 MEQ/L (21-32); CHLORIDE LEVEL 96 MEQ/L (98-107); CREATININE FOR GFR 1.17 MG/DL (0.70-1.30); GLOMERULAR FILTRATION RATE > 60.0 (>42); GLUCOSE, FASTING 189 MG/DL (70-100); MAGNESIUM LEVEL 1.4 MG/DL (1.8-2.4); SODIUM LEVEL 130 MEQ/L (136-145)
[2019-05-14] MEDS ORDERED: MAG SULF 1GM/100ML (MAG RUN) 1 GM in IV 1 EA IV ONE (07:00)
[2019-05-14] MEDS: ADVAIR HFA 115/21MCG INHALER INH SCH (07:36)
[2019-05-14] MEDS: LEVEMIR (INSULIN DETEMIR) 1 UNITS/0.01ML SC SCH (07:57)
[2019-05-14] MEDS: HumaLOG INSULIN (NovoLOG) PER UNIT SC SCH ×2 (07:58→12:10)
[2019-05-14] MEDS: oxyCODONE 5MG TAB PO PRN (07:59)
[2019-05-14] MEDS: MAGNESIUM OXIDE 400 MG TAB (MAG-OX) PO SCH (08:00)
[2019-05-14] MEDS: busPIRone 5 MG TAB PO SCH (08:01)
[2019-05-14] MEDS: PROPYLTHIOURACIL 50 MG TAB PO SCH (08:01)
[2019-05-14] MEDS: CitaloPRAM (CeleXA) 20 MG TAB PO SCH (08:01)
[2019-05-14] MEDS: FUROSEMIDE 40 MG TAB PO SCH (08:03)
[2019-05-14] MEDS: ATENOLOL 25 MG TAB PO SCH (08:03)
[2019-05-14] MEDS: OMEPRAZOLE 20 MG CAP PO SCH (08:03)
[2019-05-14] MEDS: FOLIC ACID 1 MG TAB PO SCH (08:03)
[2019-05-14] MEDS: SENOKOT S TAB PO SCH (08:04)
[2019-05-14] MEDS: VITAMIN D 1,000 INTERNATIONAL UNITS TABLET PO SCH (08:04)
[2019-05-14 08:05] VITALS: BP 127/64
[2019-05-14] MEDS: MOM 30ML SUSPENSION UDC PO SCH (08:05)
[2019-05-14] MEDS: MIRALAX *UNIT DOSE* 17GM PACKET PO SCH (08:05)
[2019-05-14] MEDS: amLODIPine 5 MG TAB PO SCH (08:05)
[2019-05-14] MEDS ORDERED: ASCORBIC ACID 500 MG TAB PO SCH (09:00)
[2019-05-14] MEDS ORDERED: COLCHICINE 0.6 MG TAB PO SCH (09:00)
[2019-05-14] MEDS ORDERED: predniSONE 20 MG TAB PO SCH (09:00)
[2019-05-14] MEDS ORDERED: COLC1TAB13 PO (10:23)
[2019-05-14] MEDS ORDERED: INSUDET SC (10:23)
[2019-05-14] MEDS ORDERED: RAME8TAB2 PO (10:23)
[2019-05-14] MEDS ORDERED: XARE10TA PO (10:23)
[2019-05-14] MEDS ORDERED: SENN-52 PO (10:23)
[2019-05-14] MEDS ORDERED: FURO40TA2 PO (10:23)
[2019-05-14] MEDS ORDERED: MAG400TA PO (10:23)
[2019-05-14] MEDS ORDERED: ZYLO300T6 PO (10:23)
[2019-05-14] MEDS ORDERED: FERR325T3 PO (10:24)
[2019-05-14] MEDS ORDERED: ATEN25TA PO (10:24)
[2019-05-14] MEDS ORDERED: ACET1TAB55 PO (10:24)
[2019-05-14] MEDS ORDERED: OXYCO5TA PO (10:24)
[2019-05-14] MEDS: IRON SUCROSE 200 MG in NS 100 ML IV SCH (10:51)
--- NOTE | 2019-05-14 11:55 | IPNPDOC ---
Date Seen The patient was seen on 05/14/19. Progress Note NEPHROLOGY SERVICE PROGRESS NOTE SUBJECTIVE: Patient is a 74 YO M with history of R hip surgery and subsequent hyperkalemia and IRMA. Mr. Higgins was seen and examined at the bedside this morning. The pain in his joints has improved this morning. He is making good urine and appears to be euvolemic. He is going to be sent to [facility] rehab today. OBJECTIVE PHYSICAL EXAMINATION: VITAL SIGNS: Please see below. GENERAL: laying in bed, appears stated age, calm, cooperative, in no acute distress HEENT: EOMI, PERRLA, normocephalic/atraumatic, neck is supple with no lymphadenopathy or thyromegaly CARDIOVASCULAR: RRR, no murmurs/rubs/gallops RESPIRATORY: Clear to auscultation bilaterally with no adventitious breath sounds appreciated ABDOMINAL: soft, nontender, ostomy is in place, no surrounding erythema EXTREMITIES: no clubbing/cyanosis/edema; there is an incision site at R hip from surgery and large hematoma; No joint pain is ilicited on exam and there is no swelling of any of the peripheral joints. NEUROLOGICAL: CN 2-12 intact with no obvious focal deficits PSYCHOLOGICAL: AAOx3, normal mood/affect LABORATORY DATA, IMAGING STUDIES, MICROBIOLOGY: Please see below. ASSESSMENT AND PLAN: Patient is a 74 YO M with history of R hip surgery and subsequent hyperkalemia, hyponatremia and IRMA. He was also recently found to have polyarticular gout on exam and was started on Prednisone for acute treatment. PROBLEMS: 1. Acute on chronic kidney disease: -Cr stable -Urine output acceptable -Hyponatremia has improved to 130. Continue salt tabs and fluid restriction. -Patient appears euvolemic on exam 2. Polyarticular gout: -Patient had joint pain in wrists, ankles, toes yesterday that appears to have resolved today -Prednisone 40mg daily x 4 days and Colchicine started -Patient will need to be started on Allopurinol 1-2 weeks after discharge 3. Hyperkalemia: Most likely related to R thigh hematoma and resorption of blood. -s/p Veltassa and 1 dose fludrocortisone. Appears to have resolved. K 4.0 today -continue Magnesium replacement 4. Anemia: -Hgb down to 8.4 today -Would like for patient to have iron infusion prior to discharge to [facility] today. 5. Osteoporosis: -resume home Fosamax in a few weeks 6. Hypertension: -Continue Norvasc, Lasix DISPOSITION: Patient is optimized from the Nephrology standpoint and is cleared to go to [facility] pending his iron infusion today. He is to continue his course of prednisone and colchicine as prescribed and then started on Allopurinol as mentioned above. VS, I&O, 24H, Fishbone Vital Signs/I&O Vital Signs Date Time Temp Pulse Resp B/P (MAP) Pulse Ox O2 Delivery O2 Flow Rate FiO2 05/14/19 08:29 18 05/14/19 08:05 92 127/64 05/14/19 06:00 97.9 96 l I&O- Last 24 Hours up to 6 AM 05/14/19 06:00 Intake Total 1960 ml Output Total 1350 ml Balance 610 ml Laboratory Data 24H LABS Laboratory Tests 2 05/14/19 05:29: Immature Granulocyte % (Auto) 2.6, White Blood Count 17.8H, Red Blood Count 2.69L, Hemoglobin 8.4L, Hematocrit 24.8L, Mean Corpuscular Volume 92.2, Mean Corpuscular Hemoglobin 31.2, Mean Corpuscular Hemoglobin Concent 33.9, Red Cell Distribution Width 13.2, Platelet Count 260, Neutrophils (%) (Auto) 80.9H, Lymphocytes (%) (Auto) 6.1L, Monocytes (%) (Auto) 10.2H, Eosinophils (%) (Auto) 0.1, Basophils (%) (Auto) 0.1, Neutrophils # (Auto) 14.4H, Lymphocytes # (Auto) 1.1L, Monocytes # (Auto) 1.8H, Eosinophils # (Auto) 0.0, Basophils # (Auto) 0.0, Nucleated Red Blood Cells % (auto) 0.0, Anion Gap 9, Glomerular Filtration Rate > 60.0, Blood Urea Nitrogen 49H, Creatinine 1.17, Sodium Level 130L, Potassium Level 4.0, Chloride Level 96L, Carbon Dioxide Level 25, Calcium Level 8.4L, Magnesium Level 1.4L CBC/BMP Laboratory Tests 05/14/19 05:29 Red Blood Count 2.69 L, Mean Corpuscular Volume 92.2, Mean Corpuscular Hemog lobin 31.2, Mean Corpuscular Hemoglobin Concent 33.9, Red Cell Distribution Width 13.2, Neutrophils (%) (Auto) 80.9 H, Lymphocytes (%) (Auto) 6.1 L, Monocytes (%) (Auto) 10.2 H, Eosinophils (%) (Auto) 0.1, Basophils (%) (Auto) 0.1, Neutrophils # (Auto) 14.4 H, Lymphocytes # (Auto) 1.1 L, Monocytes # (Auto) 1.8 H, Eosinophils # (Auto) 0.0, Basophils # (Auto) 0.0, Calcium Level 8.4 L GME ATTESTATION GME ATTESTATION My faculty preceptor for this patient encounter was physically present during the encounter and was fully available. All aspects of the patient interview, examination, medical decision making process, and medical care plan development were reviewed and approved by the faculty preceptor. The faculty preceptor is aware and concurs with the plan as stated in the body of this note and will attest to such by his/her cosignature. SUMEET AVALOS MD May 14, 2019 11:54
--- NOTE | 2019-05-14 16:00 | DS.PDOC ---
Discharge Summary General Date of Admission May 03, 2019 at 15:08 Date of Discharge 05/14/19 Attending Physician: JERRY SANABRIA DO Discharge Summary PROCEDURES PERFORMED DURING STAY: Closure reduction and internal fixation right femur with a cephalomedullary nail. ADMITTING DIAGNOSES: Osteoarthritis Hyponatremia Acute renal failure superimposed on chronic kidney disease. Hyperkalemia Hypertension and tachycardia Insomnia Hypomagnesemia Anemia. Osteoporosis Depression Deconditioning DISCHARGE DIAGNOSES: Osteoarthritis Hyponatremia Acute renal failure superimposed on chronic kidney disease. Hyperkalemia Hypertension and tachycardia Insomnia Hypomagnesemia Anemia. Osteoporosis Depression Deconditioning COMPLICATIONS/CHIEF COMPLAINT: Hip Fracture. HISTORY OF PRESENT ILLNESS: 74-year-old man with a history of diabetes, high blood pressure, duodenal ulcer, hypothyroidism, dyslipidemia, Asthma and COPD who presented to the ED after he tripped and fell this morning on a rug as he was taking his dog out. He reports a witnessed (by family) fall during which he fell from standing onto his right side without hitting his head or any loss of consciousness. Family immediately called an ambulance and he was brought to the ED. In the ED he arrived hemodynamically stable reporting severe right hip pain. Initial work up was notable for hip xray that showed a comminuted i ntertrochanteric fracture of the right hip in varus with diffuse osteopenia and no acute pelvic fracture. Orthopedic surgery was consulted in the ED that is planning for right hip open reduction internal fixation tomorrow morning and recommended NPO at midnight. 05/04/2019 Closure reduction and internal fixation right femur with a cephalomedullary nail HOSPITAL COURSE: During hospital stay following issue addressed Osteoarthritis Pain management Continue prednisone 10 mg Hyponatremia Improved Most likely secondary to Lasix Acute renal failure superimposed on chronic kidney disease. Resolved Most likely prerenal Improved Hyperkalemia Resolved Secondary to acute on chronic renal failure and hematoma secondary to right hip fracture Hypertension and tachycardia Blood pressures under control The dose of atenolol was increased to 75 mg, continue to monitor PAUL inhibitor on hold Hypomagnesemia Replaced Insomnia Ramelteon Anemia. The patient has acute blood loss anemia related to his right hip fracture and surgery. No urgent intervention is needed at this point. Osteoporosis. The patient was on Fosamax which has been stopped at present due to hip fracture and risk for poor healing with Fosamax. It can probably be resumed in a few week Depression Continue home meds Deconditioning PT/OT continuing treatment and evaluation before discharge DISCHARGE MEDICATIONS: Please see below. ALLERGIES: Please see below. PHYSICAL EXAMINATION ON DISCHARGE: VITAL SIGNS: Please see below. HEENT: PERRLA, EOMI CV: S1-S2 Lungs: Clear to auscultation bilaterally Abdomen: Nontender, nondistended, colostomy in place Extremity: Status post right hip surgery, dressing intact. No swelling, no cyanosis of lower extremities Neuro: Nonfocal, cranial nerves from 2 through 12 intact LABORATORY DATA: Please see below. IMAGING: Renal ultrasound: The right kidney measures 12.9 x 5.3 x 5.2 cm. The left kidney measures 11.7 x 5.3 x 6.3 cm. The kidneys are normal size. Renal cortical echogenicity is normal bilaterally. There is no hydronephrosis on the right on the left. There are no renal calculi on the right on the left. There is a 2.9 cm hypodensity in the left renal lower pole, this has a similar to the and abdomen/pelvis CT dated 04/04/2017 and is likely a left renal cyst. There are no solid renal masses. The study is performed at the patient's bedside and decubitus views are not possible. Bladder: The bladder is under distended and cannot be further evaluated. Impression: Left renal 2.9 cm lower pole hypodensity, likely a cyst. Otherwise, negative renal ultrasound. PROGNOSIS: Favorable ACTIVITY: As tolerated DIET: Cardiac DISCHARGE PLAN: Continue prescribed medication DISPOSITION: 62 D/T Rehab Facility. DISCHARGE INSTRUCTIONS: Repeat BMP in 3-4 days ITEMS TO FOLLOWUP ON ON OUTPATIENT: 1 follow-up with station repairer and PCP DISCHARGE CONDITION:Stable TIME SPENT ON DISCHARGE: Greater than 20 minutes. Vital Signs/I&Os Vital Signs Date Time Temp Pulse Resp B/P (MAP) Pulse Ox O2 Delivery O2 Flow Rate FiO2 05/14/19 08:29 18 05/14/19 08:05 92 127/64 05/14/19 06:00 97.9 96 I&O- Last 24 Hours up to 6 AM 05/14/19 05:59 Intake Total 1950 ml Output Total 1600 ml Balance 350 ml Laboratory Data Labs 24H Laboratory Tests 2 05/14/19 05:29: Immature Granulocyte % (Auto) 2.6, White Blood Count 17.8H, Red Blood Count 2.69L, Hemoglobin 8.4L, Hematocrit 24.8L, Mean Corpuscular Volume 92.2, Mean Corpuscular Hemoglobin 31.2, Mean Corpuscular Hemoglobin Concent 33.9, Red Cell Distribution Width 13.2, Platelet Count 260, Neutrophils (%) (Auto) 80.9H, Lymphocytes (%) (Auto) 6.1L, Monocytes (%) (Auto) 10.2H, Eosinophils (%) (Auto) 0.1, Basophils (%) (Auto) 0.1, Neutrophils # (Auto) 14.4H, Lymphocytes # (Auto) 1.1L, Monocytes # (Auto) 1.8H, Eosinophils # (Auto) 0.0, Basophils # (Auto) 0.0, Nucleated Red Blood Cells % (auto) 0.0, Anion Gap 9, Glomerular Filtration Rate > 60.0, Blood Urea Nitrogen 49H, Creatinine 1.17, Sodium Level 130L, Potassium Level 4.0, Chloride Level 96L, Carbon Dioxide Level 25, Calcium Level 8.4L, Magnesium Level 1.4L CBC/BMP Laboratory Tests 05/14/19 05:29 Red Blood Count 2.69 L, Mean Corpuscular Volume 92.2, Mean Corpuscular Hemoglobin 31.2, Mean Corpuscular Hemoglobin Concent 33.9, Red Cell Distribution Width 13.2, Neutrophils (%) (Auto) 80.9 H, Lymphocytes (%) (Auto) 6.1 L, Mon ocytes (%) (Auto) 10.2 H, Eosinophils (%) (Auto) 0.1, Basophils (%) (Auto) 0.1, Neutrophils # (Auto) 14.4 H, Lymphocytes # (Auto) 1.1 L, Monocytes # (Auto) 1.8 H, Eosinophils # (Auto) 0.0, Basophils # (Auto) 0.0, Calcium Level 8.4 L Discharge Medications Scheduled Allopurinol (Zyloprim) 300 Mg Tablet, 300 MG PO DAILY Amitriptyline HCl (Amitriptyline HCl) 25 Mg Tab, 25 MG PO QHS, (Reported) Amlodipine Besylate (Amlodipine Besylate) 5 Mg Tab, 5 MG PO DAILY, (Reported) Ascorbic Acid (Vitamin C) 500 Mg Tab, 500 MG PO TID, (Reported) Aspirin (Ecotrin) 81 Mg Tab, 81 MG PO DAILY, (Reported) Atenolol (Atenolol) 25 Mg Tablet, 75 MG PO DAILY Buspirone HCl (Buspirone HCl) 15 Mg Tab, 15 MG PO BID, (Reported) Cholecalciferol (Vitamin D3) (Vitamin D3) 5,000 Unit Cap, 5,000 UNIT PO DAILY, (Reported) Citalopram Hydrobromide (Citalopram HBr) 20 Mg Tab, 20 MG PO DAILY, (Reported) Colchicine (Colchicine) 0.6 Mg Tablet, 0.6 MG PO DAILY Cyanocobalamin (Vitamin B-12) (Vitamin B-12) 1,000 Mcg Tablet, 1,000 MCG PO TID, (Reported) Ferrous Sulfate (Ferrous Sulfate) 325 Mg Tablet.dr, 325 MG PO BID for anemia Fluticasone Propion/Salmeterol (Advair Hfa 115-21 Mcg Inhaler) 1 Aer Aer, 2 PUFF INH BID, (Reported) Folic Acid (Folic Acid) 1 Mg Tab, 1 MG PO DAILY, (Reported) Furosemide (Furosemide) 40 Mg Tablet, 40 MG PO ONCE Gabapentin (Gabapentin) 300 Mg Capsule, 300 MG PO QHS, (Reported) Insulin Detemir (Levemir) 100 Unit/1 Ml Vial, 5 UNITS SC BID Lisinopril (Lisinopril) 10 Mg Tab, 10 MG PO DAILY, (Reported) Magnesium Oxide (Magnesium Oxide) 400 Mg Tablet, 800 MG PO BID Metformin HCl (Metformin HCl ER) 500 Mg Tab, 500 MG PO ACHS, (Reported) Omeprazole (Omeprazole) 40 Mg Cap, 40 MG PO DAILY, (Reported) Prednisone (Prednisone) 10 Mg Tab, 10 MG PO DAILY, (Reported) Propylthiouracil (Propylthiouracil) 50 Mg Tab, 50 MG PO QAM, (Reported) Propylthiouracil (Propylthiouracil) 50 Mg Tab, 25 MG PO QHS, (Reported) Ramelteon (Ramelteon) 8 Mg Tablet, 8 MG PO QHS Rivaroxaban (Xarelto) 10 Mg Tablet, 10 MG PO DAILY Rivaroxaban (Xarelto) 10 Mg Tablet, 10 MG PO DAILY@18 Ropinirole HCl (Ropinirole HCl) 4 Mg Tablet, 4 MG PO QHS, (Reported) Simvastatin (Simvastatin) 20 Mg Tab, 20 MG PO QHS, (Reported) Scheduled PRN Acetaminophen (Acetaminophen) 325 Mg Tablet, 650 MG PO Q4H PRN for PAIN OR FEVER Albuterol Sulf (Albuterol Sulfate) 2.5 Mg/3 Ml Nebu, 2.5 MG INH PRN PRN for WHEEZING, (Reported) Ipratropium/Albuterol Sulfate (Combivent Respimat 20-100 Mcg) 1 Aer Aer, 1 PUFF INH QID PRN for SHORTNESS OF BREATH, (Reported) Oxycodone HCl (Oxycodone HCl) 5 Mg Tablet, 10 MG PO Q6HP PRN for SEVERE PAIN (PS 8-10) Oxycodone HCl/Acetaminophen (Percocet 5-325 mg Tablet) 1 Each Tablet, 1 TAB PO Q4H PRN for PAIN Sennosides/Docusate Sodium (Senna Plus Tablet) 1 Each Tablet, 1 TAB PO BID PRN for CONSTIPATION Tramadol HCl (Tramadol HCl) 50 Mg Tab, 50 MG PO Q6H PRN for PAIN, (Reported) Allergies Coded Allergies: Quinolones (Verified Allergy, Intermediate, hives, 05/09/19) azithromycin (Verified Allergy, Intermediate, hives, 05/09/19) levofloxacin (Verified Allergy, Intermediate, hives, 05/09/19) tobramycin (Verified Allergy, Unknown, unsure, 05/03/19) ibuprofen (Verified Adverse Reaction, Mild, upset stomach, 05/09/19) zolpidem (Verified Adverse Reaction, Mild, hallucination, 05/09/19) JERRY SANABRIA DO May 14, 2019 16:00
--- NOTE | 2019-05-15 12:00 | IPN ---
DATE OF SERVICE: 05/12/2019 SUBJECTIVE: The patient was seen and examined at the bedside today morning. He reports that he is having pain in his feet and the right hip, and he has decreased range of movement today. His renal function is otherwise stable. Hyponatremia is persistent despite salt tablet three times a day. Sodium is fluctuating at around 129. He denies any fevers, chills, or rigors. No other complaints apart from pain in his lower extremity and the right hip fracture site. OBJECTIVE: Vital signs: Temperature is 98.8 degrees Fahrenheit, blood pressure is 140/75, pulse is 111, respiratory rate of 19, saturating 93% on room air. Intake and output: Urine output recorded is 1300 mL yesterday, 400 mL so far today since overnight. Weight in the bed scale is not available. PHYSICAL EXAMINATION: GENERAL: The patient is awake, alert, oriented times three, lying in bed. Mild painful distress. HEAD AND NECK : Extraocular muscles intact. Pupils equally round and reactive to light. Mucous membranes are moist. Neck is supple. There is no jugular venous distention (JVD). CARDIOVASCULAR: S1, S2, regular rate. Edema 2+ of the bilateral lower extremities in the thighs specifically. RESPIRATORY: Chest is clear to auscultation bilaterally. Bilateral equal air entry. No rales or rhonchi. ABDOMEN: Soft, positive bowel sounds. Nontender. No organomegaly. MUSCULOSKELETAL: The patient has a dressing at the right hip surgical site. Decreased range of movement because of pain in the bilateral lower extremities. Edema 2+ in the thighs and 1+ edema in the ankles noted. CENTRAL NERVOUS SYSTEM: No focal deficit. Power is 5/5 in bilateral upper extremities. LABORATORY REVIEW: CBC showed WBC 15.7, hemoglobin 8.8, platelets are 239. Urine random osmolality is pending. Urine sodium is 21. BMP showed sodium 129, potassium 4.4, chloride 96, bicarbonate 24, BUN 47, creatinine is 1.25, calcium 8.3. CURRENT INPATIENT MEDICATIONS: The patient's medications were all reviewed by me. He is currently on sodium tablets 1 gram three times a day. His prednisone dose has been increased to 10 mg by mouth daily. He continues to be on magnesium gluconate 500 mg four times a day. No other change in the medications today as compared with yesterday apart from a dose of Maxifed 1 gram intravenous (IV) today morning. ASSESSMENT AND PLAN: 1. Acute kidney injury superimposed on chronic kidney disease. Patient's renal function has improved. Creatinine is 1.2. GFR is more than 60. 2. Hyponatremia. The patient likely has hypervolemic hyponatremia. I am checking the urine random osmolarity to rule out the possibility of pain-associated syndrome of inappropriate antidiuretic hormone secretion (SIADH). The patient is already on sodium tablet 1 gram by mouth three times a day. I have also gave him a dose of Lasix 40 mg IV to help with aquaresis and improve sodium level. 3. Hypertension. Blood pressure is optimal. Continue current dose of amlodipine 5 mg daily, atenolol 75 mg by mouth daily. 4. Anemia and recent are blood loss and surgery. Hemoglobin is slightly down to 8.8. I am going to check the iron levels and give IV iron if needed. Transfuse as needed for hemoglobin below 8. 5. Hypomagnesemia. Patient is already on oral magnesium. He was also given a dose of magnesium sulfate 1 gram IV today morning. 6. Lower extremity edema. I have ordered a dose of Lasix 40 mg IV. If needed he will be given more Lasix tomorrow. Lasix was also help with improvement of hyponatremia as well. MTDD
[2019-05-17] MEDS ORDERED: predniSONE 10 MG TAB PO SCH (09:00)
[2019-05-17] MEDS ORDERED: ALLOPURINOL 300 MG TAB PO SCH (09:00)
== END 2019-05-14 12:40 | DRG 481 ==
LOC: M ED 12:55 → EDBD 12:55 → M ED INP 15:08 → M MS5PR 17:40 → M ICU 05-04 02:09 → M MS5PR 05-05 16:16
PROVIDERS: ADMIT Internal Medicine; ATTEND Internal Medicine
PROC: 0QS606Z Reposition Right Upper Femur with Intramedullary Internal Fixation Device, Open Approach (ICD-10-PCS; principal; 2019-05-04 11:30)
DX: S72.144A Nondisplaced intertrochanteric fracture of right femur, initial encounter for closed fracture (principal); N17.9 Acute kidney failure, unspecified; E87.1 Hypo-osmolality and hyponatremia; D62 Acute posthemorrhagic anemia; F32.9 Major depressive disorder, single episode, unspecified; E87.5 Hyperkalemia; I12.9 Hypertensive chronic kidney disease with stage 1 through stage 4 chronic kidney disease, or unspecified chronic kidney disease; G47.00 Insomnia, unspecified; E83.42 Hypomagnesemia; M81.0 Age-related osteoporosis without current pathological fracture; N18.9 Chronic kidney disease, unspecified; E03.9 Hypothyroidism, unspecified; E78.5 Hyperlipidemia, unspecified; J45.909 Unspecified asthma, uncomplicated; M19.90 Unspecified osteoarthritis, unspecified site; Z79.82 Long term (current) use of aspirin; Z79.899 Other long term (current) drug therapy; Z88.8 Allergy status to other drugs, medicaments and biological substances; Z79.4 Long term (current) use of insulin; E11.40 Type 2 diabetes mellitus with diabetic neuropathy, unspecified; F41.9 Anxiety disorder, unspecified; K26.9 Duodenal ulcer, unspecified as acute or chronic, without hemorrhage or perforation; Z93.3 Colostomy status; W18.09XA Striking against other object with subsequent fall, initial encounter; Y92.009 Unspecified place in unspecified non-institutional (private) residence as the place of occurrence of the external cause

== ENCOUNTER → 2019-05-22 | Outpatient (REF) | payer MEDICARE, OTHER ==
[~2019-05-22] MED LIST changes: +ACET1TAB55 PO; +ATEN25TA PO; +COLC1TAB13 PO; +CYAN100050 PO; +FURO40TA2 PO; +INSUDET SC; +MAG400TA PO; -OMEP40CA2 PO; +OMEP40CA97 PO; +OXYCO5TA PO; +PERC5TAB12 PO; +RAME8TAB2 PO; +ROPI4TAB PO; +SENN-52 PO; +XARE10TA PO; +ZYLO300T6 PO
[2019-05-22 10:23] LABS: HEMOGLOBIN 9.6 g/dl (13.5-17.5); MEAN CORPUSCULAR HEMOGLOBIN 30.4 pg (27.0-33.0); MEAN CORPUSCULAR VOLUME 98.1 fl (80.0-96.0); PLATELET COUNT, AUTOMATED 330 10^3/uL (150-450); RED BLOOD COUNT 3.16 10^6/uL (4.30-6.10); WHITE BLOOD COUNT 11.3 10^3/uL (4.0-10.0)
[2019-05-22 11:10] LABS: BLOOD UREA NITROGEN 42 MG/DL (7-18); CALCIUM LEVEL 8.9 MG/DL (8.8-10.2); CARBON DIOXIDE LEVEL 26 MEQ/L (21-32); CHLORIDE LEVEL 104 MEQ/L (98-107); CREATININE FOR GFR 1.04 MG/DL (0.70-1.30); GLOMERULAR FILTRATION RATE > 60.0 (>42); GLUCOSE, FASTING 94 MG/DL (70-100); POTASSIUM SERUM 4.7 MEQ/L (3.5-5.1); SODIUM LEVEL 137 MEQ/L (136-145); URIC ACID 5.9 MG/DL (3.5-7.2)
[2019-05-22 13:18] LABS: HEMOGLOBIN A1c 7.5 %
== END ==
PROVIDERS: ATTEND Internal Medicine
DX: E05.90 Thyrotoxicosis, unspecified without thyrotoxic crisis or storm (principal); Z79.899 Other long term (current) drug therapy

== ENCOUNTER → 2019-05-29 | Outpatient (REF) | payer MEDICARE, OTHER ==
[2019-05-29 08:50] LABS: HEMATOCRIT 30.7 % (42.0-52.0); HEMOGLOBIN 9.4 g/dl (13.5-17.5); MEAN CORPUSCULAR HEMOGLOBIN 30.8 pg (27.0-33.0); MEAN CORPUSCULAR HGB CONC 30.6 g/dl (32.0-36.5); MEAN CORPUSCULAR VOLUME 100.7 fl (80.0-96.0); PLATELET COUNT, AUTOMATED 201 10^3/uL (150-450); RED BLOOD COUNT 3.05 10^6/uL (4.30-6.10); WHITE BLOOD COUNT 10.7 10^3/uL (4.0-10.0)
[2019-05-29 09:21] LABS: BLOOD UREA NITROGEN 23 MG/DL (7-18); CALCIUM LEVEL 8.9 MG/DL (8.8-10.2); CARBON DIOXIDE LEVEL 26 MEQ/L (21-32); CHLORIDE LEVEL 104 MEQ/L (98-107); CREATININE FOR GFR 0.94 MG/DL (0.70-1.30); GLOMERULAR FILTRATION RATE > 60.0 (>42); GLUCOSE, FASTING 72 MG/DL (70-100); POTASSIUM SERUM 4.7 MEQ/L (3.5-5.1); SODIUM LEVEL 137 MEQ/L (136-145)
== END ==
PROVIDERS: ATTEND Internal Medicine
DX: D64.9 Anemia, unspecified (principal)

== ENCOUNTER → 2019-06-01 | Outpatient (REF) | payer MEDICARE, OTHER ==
[2019-06-01 08:09] LABS: BLOOD UREA NITROGEN 24 MG/DL (7-18); CALCIUM LEVEL 8.3 MG/DL (8.8-10.2); CARBON DIOXIDE LEVEL 29 MEQ/L (21-32); CHLORIDE LEVEL 100 MEQ/L (98-107); CREATININE FOR GFR 1.07 MG/DL (0.70-1.30); GLOMERULAR FILTRATION RATE > 60.0 (>42); GLUCOSE, FASTING 90 MG/DL (70-100); POTASSIUM SERUM 4.7 MEQ/L (3.5-5.1); SODIUM LEVEL 137 MEQ/L (136-145)
== END ==
PROVIDERS: ATTEND Internal Medicine
DX: I50.9 Heart failure, unspecified (principal)

== ENCOUNTER 2019-06-25 17:16 | Emergency (ER) | payer MEDICARE, OTHER ==
[~2019-06-25] VITALS: Ht 165.1 cm; Wt 96.4 kg
[~2019-06-25 17:16] MED LIST changes: -SIMV20TA2 PO; +SIMV20TA22 PO; -SIMV40TA2 PO; +SIMV40TA20 PO
[2019-06-25 19:22] LABS: HEMATOCRIT 31.9 % (42.0-52.0); HEMOGLOBIN 9.8 g/dl (13.5-17.5); MEAN CORPUSCULAR HEMOGLOBIN 30.5 pg (27.0-33.0); MEAN CORPUSCULAR HGB CONC 30.7 g/dl (32.0-36.5); MEAN CORPUSCULAR VOLUME 99.4 fl (80.0-96.0); PLATELET COUNT, AUTOMATED 259 10^3/uL (150-450); RED BLOOD COUNT 3.21 10^6/uL (4.30-6.10); WHITE BLOOD COUNT 18.1 10^3/uL (4.0-10.0)
[2019-06-25 19:50] LABS: BLOOD UREA NITROGEN 49 MG/DL (7-18); C REACTIVE PROTEIN QUANTITATIV 4.02 MG/DL (0.00-0.30); CARBON DIOXIDE LEVEL 23 MEQ/L (21-32); CHLORIDE LEVEL 103 MEQ/L (98-107); CK-MB VALUE MASS 3.1 NG/ML (<3.6); CPK CREATINE PHOSPHOKINASE 74 U/L (39-308); CREATININE FOR GFR 2.04 MG/DL (0.70-1.30); GLOMERULAR FILTRATION RATE 34.2 (>42); GLUCOSE, FASTING 133 MG/DL (70-100); MB/CK RELATIVE INDEX 4.19 (< OR =4); POTASSIUM SERUM 6.4 MEQ/L (3.5-5.1); SODIUM LEVEL 134 MEQ/L (136-145); TROPONIN I < 0.02 NG/ML (< 0.10)
[2019-06-25 19:56] LABS: BASO % 0.2 % (0.0-1.0); EOS # 6.8 10^3/uL (0.0-0.5); LYMPH # 1.4 10^3/uL (1.5-5.0); LYMPH % 7.4 % (24.0-44.0); MONO # 0.5 10^3/uL (0.0-0.8); MONO % 2.7 % (0.0-5.0); NEUTROPHILS # 9.7 10^3/uL (1.5-8.5); NEUTROPHILS % 52.2 % (36.0-66.0)
[2019-06-25 19:57] LABS: EOS % 36.6 % (0.0-3.0)
[2019-06-25] MEDS ORDERED: VANCOMYCIN HCL 1,000 MG, VIAL MATE ADAPTER 1 EACH in D5W 250 ML IV ONE (20:00)
[2019-06-25] MEDS ORDERED: PIPERACILLIN/TAZOBACTAM SOD 3.375 GM in D5W MINI-BAG PLUS 50 ML IV ONE (20:00)
[2019-06-25] MEDS ORDERED: NS 1,000 ML IV ONE (20:00)
[2019-06-25] MEDS ORDERED: diphenhydrAMINE 25 MG CAP PO ONE (20:15)
[2019-06-25] MEDS ORDERED: MAGN400T2 PO (20:31)
[2019-06-25] MEDS ORDERED: ATEN50TA2 PO (20:31)
[2019-06-25] MEDS ORDERED: ROZE8TAB16 PO (20:31)
[2019-06-25] MEDS ORDERED: METF500T13 PO (20:31)
[2019-06-25] MEDS ORDERED: ACET1TAB55 PO (20:31)
[2019-06-25] MEDS ORDERED: XARE10TA PO (20:31)
[2019-06-25] MEDS ORDERED: SENN-50 PO (20:31)
[2019-06-25] MEDS ORDERED: FERR325T3 PO (20:31)
[2019-06-25] MEDS ORDERED: ZYLO300T6 PO (20:31)
[2019-06-25] MEDS ORDERED: FURO40TA2 PO (20:31)
[2019-06-25] MEDS ORDERED: PRED5TA PO (20:33)
[2019-06-25] MEDS ORDERED: CEPH500C PO (21:22)
[2019-06-25 21:43] VITALS: BP 98/55
[2019-06-25] MEDS ORDERED: CEPHALEXIN 500 MG CAP PO ONE (22:00)
== END 2019-06-25 21:56 | disposition home or self-care (01) ==
LOC: M ED 17:16
DX: N17.9 Acute kidney failure, unspecified (principal); L03.119 Cellulitis of unspecified part of limb; J44.9 Chronic obstructive pulmonary disease, unspecified; E11.9 Type 2 diabetes mellitus without complications; I12.9 Hypertensive chronic kidney disease with stage 1 through stage 4 chronic kidney disease, or unspecified chronic kidney disease; E78.5 Hyperlipidemia, unspecified; Z79.899 Other long term (current) drug therapy; Z79.84 Long term (current) use of oral hypoglycemic drugs; Z79.01 Long term (current) use of anticoagulants; Z88.1 Allergy status to other antibiotic agents; Z88.8 Allergy status to other drugs, medicaments and biological substances

== ENCOUNTER 2019-07-04 08:52 | Inpatient (IN) | payer MEDICARE, OTHER ==
[~2019-07-04] VITALS: Ht 167.6 cm; Wt 80.2 kg
[2019-07-04] VITALS (11 sets, daily range): BP systolic 105–160; BP diastolic 46–100
[~2019-07-04 08:52] MED LIST changes: +CEPH500C PO; +MAGN400T2 PO; +PRED5TA PO; +ROZE8TAB16 PO; +SENN-50 PO
[2019-07-04] MEDS: amLODIPine 5 MG TAB PO SCH (09:00)
[2019-07-04] MEDS ORDERED: CitaloPRAM (CeleXA) 20 MG TAB PO SCH (09:00)
[2019-07-04] MEDS: atenoloL 25 MG TAB PO SCH (09:00)
[2019-07-04 09:30] LABS: BASO % 0.2 % (0.0-1.0); EOS # 0.7 10^3/uL (0.0-0.5); EOS % 5.8 % (0.0-3.0); HEMATOCRIT 27.4 % (42.0-52.0); HEMOGLOBIN 8.5 g/dl (13.5-17.5); LYMPH # 0.7 10^3/uL (1.5-5.0); LYMPH % 5.9 % (24.0-44.0); MEAN CORPUSCULAR HEMOGLOBIN 31.4 pg (27.0-33.0); MEAN CORPUSCULAR VOLUME 101.1 fl (80.0-96.0); MONO # 0.8 10^3/uL (0.0-0.8); NEUTROPHILS # 9.4 10^3/uL (1.5-8.5); NEUTROPHILS % 80.6 % (36.0-66.0); PLATELET COUNT, AUTOMATED 254 10^3/uL (150-450); RED BLOOD COUNT 2.71 10^6/uL (4.30-6.10); WHITE BLOOD COUNT 11.7 10^3/uL (4.0-10.0)
[2019-07-04] MEDS ORDERED: CEPH500T PO (09:44)
[2019-07-04 09:58] LABS: CALCIUM LEVEL 8.9 MG/DL (8.8-10.2); CREATININE FOR GFR 2.96 MG/DL (0.70-1.30); GLOMERULAR FILTRATION RATE 22.3 (>42); POTASSIUM SERUM 6.1 MEQ/L (3.5-5.1)
[2019-07-04 10:08] LABS: INFLUENZA A AMPLIFICATION NEGATIVE (NEGATIVE); INFLUENZA B AMPLIFICATION NEGATIVE (NEGATIVE)
--- NOTE | 2019-07-04 11:00 | REP ---
CHEST, PORTABLE: AP portable view of the chest is performed and compared to prior studies, most recent of which is 05/03/2019. There may be some mild left basilar atelectasis/infiltrate behind the cardiac silhouette. The heart does not appear to be significantly enlarged. There is calcification of the thoracic aorta. The mediastinal silhouette is unremarkable. IMPRESSION: Possible left basilar infiltrate/atelectasis. Electronically Signed by Yong Villa MD 07/04/2019 11:37 A
[2019-07-04 11:14] LABS: BILIRUBIN,DIRECT 0.2 MG/DL (0.0-0.2); BILIRUBIN,TOTAL 0.4 MG/DL (0.2-1.0); C REACTIVE PROTEIN QUANTITATIV 6.56 MG/DL (0.00-0.30); CK-MB VALUE MASS 14.1 NG/ML (<3.6); MB/CK RELATIVE INDEX 2.93 (< OR =4); TOTAL PROTEIN 5.8 GM/DL (6.4-8.2); TROPONIN I 0.03 NG/ML (< 0.10)
[2019-07-04] MEDS ORDERED: cefTRIAXone SOD 2 GM in D5W MINI-BAG PLUS 50 ML IV ONE (11:15)
[2019-07-04] MEDS ORDERED: AZITHROMYCIN INJ 500 MG, VIAL MATE ADAPTER 1 EACH in D5W 250 ML IV ONE (11:15)
[2019-07-04] MEDS ORDERED: DOXYCYCLINE HYCLATE 100 MG in D5W MINI-BAG PLUS 100 ML IV ONE (11:30)
[2019-07-04] MEDS ORDERED: CALCIUM GLUCONATE 1,000 MG in D5W MINI-BAG PLUS 100 ML IV ONE (11:30)
[2019-07-04] MEDS ORDERED: IPRATROPIUM 0.5MG/ALBUTEROL 2.5MG INH SOL UD 3ML (DUONEB)(J7620) INH PRN (13:15)
[2019-07-04] MEDS ORDERED: ALBUTEROL SULFATE 2.5 MG/0.5 ML INH NEB SOLN INH PRN (13:15)
[2019-07-04] MEDS ORDERED: ACETAMINOPHEN TAB 650MG DOSE (2X325MG) PO PRN (13:15)
--- NOTE | 2019-07-04 13:56 | REP ---
Clinical: Retrocardiac opacity on chest x-ray. Technique: Axial noncontrast images from the thoracic inlet to the upper abdomen with coronal and sagittal re-formations. Comparison: 04/04/2017 Findings: Small area of left lower lobe atelectasis/consolidation and small left pleural effusion. Trace right basilar atelectasis and minimal pleural reaction. Diffuse chronic age-related interstitial changes noted throughout the bilateral aerated lung valdez including mild biapical scarring and early/moderate diffuse emphysematous changes. The mediastinum demonstrates a few calcified mediastinal and hilar lymph nodes consistent with prior granulomas disease. Atherosclerotic changes to the thoracic aorta and coronary arteries noted without aortic aneurysm or cardiomegaly. No pericardial effusion. Skeletal structures demonstrate age-related osteopenia and degenerative changes including chronic compression deformity at L1 and old healed posterior right rib fractures. Impression: 1. Mild left basilar atelectasis with very small left pleural effusion and trace basilar atelectasis with small pleural reaction. 2. Chronic changes including early/moderate emphysematous disease. 3. Calcified lymph nodes consistent with prior granulomas disease. Electronically Signed by Samuel Hurley MD 07/04/2019 01:48 P
[2019-07-04] MEDS ORDERED: PATIROMER SORBITEX CALCIUM 8.4 GM POWDER PACKET (VELTASSA) PO ONE (14:00)
[2019-07-04] MEDS ORDERED: NS 1,000 ML IV ONE (14:00)
[2019-07-04] MEDS: NS 1,000 ML IV SCH ×2 (15:08→20:55)
[2019-07-04 15:18] LABS: HEMATOCRIT 25.6 % (42.0-52.0); HEMOGLOBIN 7.9 g/dl (13.5-17.5); MEAN CORPUSCULAR HEMOGLOBIN 30.6 pg (27.0-33.0); MEAN CORPUSCULAR HGB CONC 30.9 g/dl (32.0-36.5); MEAN CORPUSCULAR VOLUME 99.2 fl (80.0-96.0); PLATELET COUNT, AUTOMATED 246 10^3/uL (150-450); RED BLOOD COUNT 2.58 10^6/uL (4.30-6.10); WHITE BLOOD COUNT 10.7 10^3/uL (4.0-10.0)
--- NOTE | 2019-07-04 15:42 | ECGEPIP ---
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
[2019-07-04 15:47] LABS: ALBUMIN 3.1 GM/DL (3.2-5.2); BILIRUBIN,TOTAL 0.4 MG/DL (0.2-1.0); CALCIUM LEVEL 8.8 MG/DL (8.8-10.2); CREATININE FOR GFR 2.96 MG/DL (0.70-1.30); GLOMERULAR FILTRATION RATE 22.3 (>42); POTASSIUM SERUM 6.3 MEQ/L (3.5-5.1); TOTAL PROTEIN 5.5 GM/DL (6.4-8.2)
[2019-07-04] MEDS: PIPERACILLIN/TAZOBACTAM SOD 2.25 GM in D5W MINI-BAG PLUS 50 ML IV SCH ×2 (16:11→21:00)
[2019-07-04] MEDS ORDERED: NS 1,000 ML IV STA (16:20)
--- NOTE | 2019-07-04 16:48 | HPEPDOC ---
[facility] Medical History & Physical Date of Admission Jul 04, 2019 Date of Service: Jul 04, 2019 Attending Physician: SHARLA LUI MD History and Physical CHIEF COMPLAINT: Shaking HISTORY OF PRESENT ILLNESS: 74-year-old male with past medical history of diabetes mellitus, hypertension, COPD, hyperthyroidism, chronic kidney disease presents to the emergency room with shaking of his arms and malaise. Patient was admitted 1 month ago for right hip fracture status post mechanical fall, presented to emergency room 1 week ago with cellulitis, was advised to be admitted by emergency room staff but patient refused to be admitted and went home. Patient has a history of signing out AMA. Patient currently reports he has had poor oral intake for the past few days, chills and fever, urinary incontinence. He denies any chest pain, nausea, vomiting, abdominal pain or diarrhea. 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 10 point review of system is negative except for above PAST MEDICAL HISTORY: 1. Diabetes mellitus. 2. Hypertension. 3. COPD. 4. Hyperthyroidism 5. Chronic kidney disease PAST SURGICAL HISTORY: 1. Bowel resection. 2. Hip surgery. 3. Appendectomy. 4. Cholecystectomy SOCIAL HISTORY: Ex-smoker, smoked for 50 years Denies alcohol use. Denies drug use FAMILY HISTORY: Negative for malignancy ALLERGIES: Please see below. HOME MEDICATIONS: Please see below. PHYSICAL EXAMINATION: VITAL SIGNS: Please see below. GENERAL: No distress, frail HEENT: Normocephalic, atraumatic, dry mucous membranes NECK: Supple CARDIOVASCULAR EXAMINATION: Tachycardic RESPIRATORY EXAMINATION: Slightly crackles, no wheezing ABDOMINAL EXAMINATION: Soft, nontender, nondistended, positive bowel sounds, ostomy present EXTREMITIES: Range of motion intact SKIN: Erythema on all extremities NEUROLOGICAL EXAMINATION: Alert and oriented 3, no focal deficits PSYCHIATRIC EXAMINATION: Calm and cooperative LABORATORY DATA: See below. IMAGING: CT with trace pleural effusion MICROBIOLOGY: Please see below. ASSESSMENT: 74-year-old male with past medical history of type please mellitus, hypertension, COPD, hypothyroidism and chronic kidney disease is being admitted for sepsis and acute kidney injury. PLAN: 1. Sepsis Possibly from cellulitis/UTI, cultures pending, Zosyn, IV fluids, lactate and pro-calcitonin pending. 2. Acute on chronic kidney disease. Likely related to decreased oral intake and medication (on lisinopril and Lasix), holding lisinopril and Lasix, continue IV hydration. Hyperkalemia: Received calcium gluconate in the ED, give 1 dose of Patiromer. Anemia of chronic disease secondary to chronic kidney disease. 3. Diabetes mellitus. Hold metformin, sliding still insulin before meals and at bedtime 4. Hypertension. Continue home meds with hold parameters 5. COPD Stable, continue home regimen. 6. Hyperthyroidism. Continue propylthiouracil 7. Gout. Hold allopurinol for now DVT prophylaxis: Xarelto GI prophylaxis: Home PPI Vital Signs Vital Signs Date Time Temp Pulse Resp B/P (MAP) Pulse Ox O2 Delivery O2 Flow Rate FiO2 07/04/19 14:40 95.9 07/04/19 14:07 116 24 102/54 (70) 96 Room Air 07/04/19 09:12 2.0 Laboratory Data Labs 24H Laboratory Tests 2 07/04/19 09:14: Immature Granulocyte % (Auto) 0.5, Neutrophils (%) (Auto) 80.6H, Lymphocytes (%) (Auto) 5.9L, Monocytes (%) (Auto) 7.0H, Eosinophils (%) (Auto) 5.8H, Basophils (%) (Auto) 0.2, Neutrophils # (Auto) 9.4H, Lymphocytes # (Auto) 0.7L, Monocytes # (Auto) 0.8, Eosinophils # (Auto) 0.7H, Basophils # (Auto) 0.0, Nucleated Red Blood Cells % (auto) 0.3H, Anion Gap 10, Glomerular Filtration Rate 22.3L, Calcium Level 8.9, Total Bilirubin 0.4, Direct Bilirubin 0.2, Aspartate Amino Transf (AST/SGOT) 28, Alanine Aminotransferase (ALT/SGPT) 19, Alkaline Phosphatase 73, Total Creatine Kinase 481H, Creatine Kinase MB 14.1H, Creatine Kinase MB Relative Index 2.93, Myoglobin 1133H, Troponin I 0.03, C-Reactive Protein, Quantitative 6.56H, RZ-Sds-Y-Type Natriuretic Peptide 39842Y, Total Protein 5.8L, Albumin 3.0L, Albumin/Globulin Ratio 1.07, Influenza Type A (RT- PCR) NEGATIVE, Influenza Type B (RT-PCR) NEGATIVE CBC/BMP Laboratory Tests 07/04/19 09:14 Microbiology Microbiology 07/04/19 Respiratory Virus Panel (PCR) (IAN) - Final, Complete 07/04/19 Blood Culture, Received Pending Home Medications Scheduled Allopurinol (Zyloprim) 300 Mg Tablet, 300 MG PO DAILY Amitriptyline HCl (Amitriptyline HCl) 25 Mg Tab, 25 MG PO QHS Amlodipine Besylate (Amlodipine Besylate) 5 Mg Tab, 5 MG PO DAILY Ascorbic Acid (Vitamin C) 500 Mg Tab, 500 MG PO TID Aspirin (Ecotrin) 81 Mg Tab, 81 MG PO DAILY Atenolol (Atenolol) 50 Mg Tablet, 75 MG PO DAILY Buspirone HCl (Buspirone HCl) 15 Mg Tab, 15 MG PO BID Cephalexin (Cephalexin) 500 Mg Tablet, 500 MG PO BID FILLED 06/26/19 FOR 7 DAYS Cholecalciferol (Vitamin D3) (Vitamin D3) 5,000 Unit Cap, 5,000 UNIT PO DAILY Citalopram Hydrobromide (Citalopram HBr) 20 Mg Tab, 20 MG PO DAILY Cyanocobalamin (Vitamin B-12) (Vitamin B-12) 1,000 Mcg Tablet, 1,000 MCG PO TID Ferrous Sulfate (Ferrous Sulfate) 325 Mg Tablet.dr, 325 MG PO BID Fluticasone Propion/Salmeterol (Advair Hfa 115-21 Mcg Inhaler) 1 Aer Aer, 2 PUFF INH BID Folic Acid (Folic Acid) 1 Mg Tab, 1 MG PO DAILY Furosemide (Furosemide) 40 Mg Tablet, 40 MG PO DAILY Gabapentin (Gabapentin) 300 Mg Capsule, 300 MG PO QHS Lisinopril (Lisinopril) 10 Mg Tab, 10 MG PO DAILY Magnesium Oxide (Magnesium Oxide) 400 Mg Tablet, 800 MG PO BID Metformin HCl (Metformin HCl) 500 Mg Tablet, 500 MG PO BID Omeprazole (Omeprazole) 40 Mg Cap, 40 MG PO DAILY Prednisone (Prednisone) 5 Mg Tablet, 5 MG PO DAILY Propylthiouracil (Propylthiouracil) 50 Mg Tab, 50 MG PO QAM Propylthiouracil (Propylthiouracil) 50 Mg Tab, 25 MG PO QHS Ramelteon (Rozerem) 8 Mg Tablet, 8 MG PO QHS Rivaroxaban (Xarelto) 10 Mg Tablet, 10 MG PO DAILY Ropinirole HCl (Ropinirole HCl) 4 Mg Tablet, 4 MG PO QHS Simvastatin (Simvastatin) 20 Mg Tab, 20 MG PO QHS Scheduled PRN Acetaminophen (Acetaminophen) 325 Mg Tablet, 650 MG PO Q6H PRN for PAIN Albuterol Sulf (Albuterol Sulfate) 2.5 Mg/3 Ml Nebu, 2.5 MG INH PRN PRN for WHEEZING Ipratropium/Albuterol Sulfate (Combivent Respimat 20-100 Mcg) 1 Aer Aer, 1 PUFF INH QID PRN for SHORTNESS OF BREATH Sennosides/Docusate Sodium (Senna Plus Tablet) 1 Each Tablet, 1 TAB PO BID PRN f or CONSTIPATION Allergies Coded Allergies: Quinolones (Verified Allergy, Intermediate, hives, 05/09/19) azithromycin (Verified Allergy, Intermediate, hives, 05/09/19) levofloxacin (Verified Allergy, Intermediate, hives, 05/09/19) tobramycin (Verified Allergy, Unknown, unsure, 05/03/19) ibuprofen (Verified Adverse Reaction, Mild, upset stomach, 05/09/19) zolpidem (Verified Adverse Reaction, Mild, hallucination, 05/09/19) A-FIB/CHADSVASC A-FIB History Current/History of A-Fib/PAF?: No SHARLA LUI MD Jul 04, 2019 16:06
[2019-07-04] MEDS: ASCORBIC ACID 500 MG TAB PO SCH ×2 (17:45→20:56)
[2019-07-04] MEDS: ASPIRIN 81 MG ENTERIC TAB PO SCH (17:45)
[2019-07-04] MEDS: RIVAROXABAN 10 MG TAB (XARELTO) PO SCH (17:45)
[2019-07-04] MEDS: FOLIC ACID 1 MG TAB PO SCH (17:45)
[2019-07-04] MEDS: VITAMIN D 1,000 INTERNATIONAL UNITS TABLET PO SCH (17:46)
[2019-07-04] MEDS: OMEPRAZOLE 20 MG CAP PO SCH (17:46)
[2019-07-04] MEDS ORDERED: GLUCOSE 4 GM CHEW TABLET PO PRN (20:15)
[2019-07-04] MEDS ORDERED: GLUCAGON FOR INJ 1 MG VIAL (J1610) SC PRN (20:15)
[2019-07-04] MEDS: RAMELTEON 8 MG TAB (ROZEREM) PO SCH (20:55)
[2019-07-04] MEDS: MAGNESIUM OXIDE 400 MG TAB (MAG-OX) PO SCH (20:56)
[2019-07-04] MEDS: FERROUS SULFATE 325MG TAB PO SCH (20:56)
[2019-07-04] MEDS: AMITRIPTYLINE 25 MG TAB PO SCH (20:56)
[2019-07-04] MEDS: SIMVASTATIN 20 MG TAB PO SCH (20:56)
[2019-07-04] MEDS: busPIRone 5 MG TAB PO SCH (20:56)
[2019-07-04] MEDS: propylthiouraciL 50 MG TAB PO SCH (20:58)
[2019-07-04] MEDS ORDERED: GABAPENTIN 300 MG CAP PO SCH (21:00)
[2019-07-04] MEDS ORDERED: ADVAIR HFA 115/21MCG INHALER INH SCH (21:00)
[2019-07-04 21:35] LABS: CALCIUM LEVEL 8.8 MG/DL (8.8-10.2); CREATININE FOR GFR 3.07 MG/DL (0.70-1.30); GLOMERULAR FILTRATION RATE 21.4 (>42); POTASSIUM SERUM 6.3 MEQ/L (3.5-5.1)
[2019-07-05] VITALS (64 sets, daily range): BP systolic 57–148; BP diastolic 36–91; O2SAT 98–100
[2019-07-05] MEDS ORDERED: HumuLIN R (REGULAR) INSULIN (NovoLIN R) **100U/ML** PER UNIT IV STA (01:20)
[2019-07-05 01:26] LABS: ABG BASE EXCESS -13.3 (-2.0-2.0); ABG HCO3 13.6 MEQ/L (22.0-26.0); ABG O2 SATURATION 99.2 % (95.0-99.0); ABG PARTIAL PRESSURE CO2 35.2 mmHg (35.0-45.0); ABG PARTIAL PRESSURE O2 179.8 mmHg (75.0-100.0); ABG TOTAL CO2 14.7 MEQ/L (23.0-31.0)
[2019-07-05 01:27] LABS: ABG pH (ARTERIAL) 7.205 UNITS (7.350-7.450)
[2019-07-05] MEDS ORDERED: D5W/LR 1,000 ML IV SCH (01:30)
[2019-07-05] MEDS ORDERED: PATIROMER SORBITEX CALCIUM 8.4 GM POWDER PACKET (VELTASSA) PO ONE (01:30)
[2019-07-05] MEDS ORDERED: SUCCINYLCHOLINE INJ 200 MG/10 ML VIAL (J0330) As Ordered ONE (01:42)
[2019-07-05] MEDS ORDERED: ETOMIDATE INJ 20MG/10ML VIAL As Ordered ONE (01:42)
[2019-07-05] MEDS ORDERED: PROPOFOL 1,000 MG/100 ML VIAL As Ordered ONE ×3 (01:45→04:41)
[2019-07-05] MEDS ORDERED: REFRIGERATOR IV KEYS XX PRN (01:45)
[2019-07-05] MEDS ORDERED: PHENYLEPHRINE INJ 10MG/ML VIAL (J2370) As Ordered ONE (01:47)
--- NOTE | 2019-07-05 01:53 | IPNPDOC ---
Text Note Date of Service The patient was seen on 07/05/19. NOTE TIME OF SERVICE 130AM CC TIME 40min Per d/w & this patient's this patient developed AMS at about 1:30AM. pH 7.205, CO2 35, O2 179 PE GEN: shaking /unresponsive /RASS -3 CVS: tachycardic LUNGS:decreased air entry & breath sounds bilaterally MSK: tremoltous PLAN: 1.Encephalopathy / AMS -cause TBD Plan: intubate for airway protection / consult anesthesiology to intubate & consult for vent management / rebeca support 16/500/60%/5 & pulm toilet training / f/u chest x-ray and ABG / f/u trop and EKG / f/u CT head to r/o CVA 2. Acute COPD possibly 2/2 L sided PNA XR chest showed possible left basilar infiltrate Respiratory panel is negative Plan:Solumedrol + PPI / Duonebs scheduled / Albuterol PRN / c/w zosyn unable to add fluoroquinolone bc of allergy 3.Metabolic Acidosis 2/2 Cellulitis Plan: c/w current abx Rest per VS,Darin, I+O VS, Darin, I+O Laboratory Tests 07/04/19 09:14 07/04/19 14:54 07/04/19 20:58 Vital Signs Date Time Temp Pulse Resp B/P (MAP) Pulse Ox O2 Delivery O2 Flow Rate FiO2 07/05/19 01:00 118 105/65 (78) 95 Nasal Cannula 2.0 07/05/19 00:00 98.3 22 I&O- Last 24 Hours up to 6 AM 07/05/19 06:00 Intake Total 2970 ml Output Total 30 ml Balance 2940 ml BELLA GIFFORD MD Jul 05, 2019 01:53
[2019-07-05] MEDS ORDERED: NOREPINEPHRINE 4 MG/4 ML AMP As Ordered ONE ×2 (01:57→02:29)
[2019-07-05] MEDS ORDERED: VASOPRESSIN INJ 20 UNITS/ML VIAL As Ordered ONE (01:59)
[2019-07-05] MEDS ORDERED: MIDAZOLAM HCL 100 MG in D5W 80 ML IV SCH (02:00)
[2019-07-05] MEDS ORDERED: CALCIUM CHLORIDE 10% 1 GM/10 ML SYR As Ordered ONE (02:01)
[2019-07-05] MEDS ORDERED: SODIUM BICARBONATE 8.4% INJ 50 ML SYRINGE As Ordered ONE (02:01)
[2019-07-05] MEDS ORDERED: methylPREDNISolone INJ 125 MG/2 ML VIAL (J2930) IV STA (02:07)
[2019-07-05] MEDS: propofoL 1,000 MG in IV 1 EA IV SCH ×5 (02:20→19:59)
[2019-07-05] MEDS: NOREPINEPHRINE BITARTRATE 8 MG in D5W 492 ML IV SCH ×2 (02:43→07:41)
--- NOTE | 2019-07-05 02:53 | REPVR ---
PROCEDURE INFORMATION: Exam: XR Chest, 1 View Exam date and time: 07/05/2019 2:18 AM Age: 74 years old Clinical history: Device placement; Chest tube; Additional info: Critical TECHNIQUE: Imaging protocol: XR of the chest Views: 1 view. COMPARISON: CR PORTABLE CHEST X-RAY 07/04/2019 10:10 AM FINDINGS: Tubes, catheters and devices: Endotracheal tube at the level the clavicles. Nasogastric tube projects in the distal esophagus above the diaphragm. Lungs: Interstitial opacities in both lungs. No other airspace consolidation. Pleural space: Possible small left pleural effusion. Heart/Mediastinum: Mild cardiomegaly. Bones/joints: Unremarkable. IMPRESSION: 1. Cardiomegaly with interstitial edema. 2. Nasogastric tube in the distal esophagus. Electronically signed by: Chucky Ocasio On 07/05/2019 02:53:12 AM
[2019-07-05 03:14] LABS: ABG BASE EXCESS -12.3 (-2.0-2.0); ABG STANDARD HCO3 14.7 MEQ/L (22.0-26.0)
[2019-07-05 03:18] LABS: ABG HCO3 14.5 MEQ/L (22.0-26.0); ABG O2 SATURATION 99.1 % (95.0-99.0); ABG PARTIAL PRESSURE CO2 36.5 mmHg (35.0-45.0); ABG PARTIAL PRESSURE O2 147.5 mmHg (75.0-100.0); ABG TOTAL CO2 15.6 MEQ/L (23.0-31.0)
[2019-07-05 03:19] LABS: ABG pH (ARTERIAL) 7.217 UNITS (7.350-7.450)
[2019-07-05] MEDS ORDERED: MIDAZOLAM INJ 2 MG/2 ML VIAL (J2250) As Ordered ONE (03:29)
[2019-07-05] MEDS: MIDAZOLAM INJ 2 MG/2 ML VIAL (J2250) IV PRN ×6 (03:32→22:49)
[2019-07-05] MEDS: IPRATROPIUM 0.5MG/ALBUTEROL 2.5MG INH SOL UD 3ML (DUONEB)(J7620) NEB SCH ×4 (03:45→19:23)
[2019-07-05] MEDS ORDERED: NS IV SCH (03:45)
[2019-07-05] MEDS ORDERED: SODIUM BICARBONATE IV SCH (03:45)
[2019-07-05 04:02] LABS: HEMATOCRIT 26.9 % (42.0-52.0); HEMOGLOBIN 8.1 g/dl (13.5-17.5); MEAN CORPUSCULAR HEMOGLOBIN 30.6 pg (27.0-33.0); MEAN CORPUSCULAR HGB CONC 30.1 g/dl (32.0-36.5); MEAN CORPUSCULAR VOLUME 101.5 fl (80.0-96.0); PLATELET COUNT, AUTOMATED 254 10^3/uL (150-450); RED BLOOD COUNT 2.65 10^6/uL (4.30-6.10)
[2019-07-05 04:22] LABS: ALBUMIN 2.8 GM/DL (3.2-5.2); BILIRUBIN,TOTAL 0.4 MG/DL (0.2-1.0); CALCIUM LEVEL 8.7 MG/DL (8.8-10.2); CREATININE FOR GFR 3.12 MG/DL (0.70-1.30); MAGNESIUM LEVEL 1.9 MG/DL (1.8-2.4); PHOSPHORUS LEVEL 5.7 MG/DL (2.5-4.9); POTASSIUM SERUM 5.4 MEQ/L (3.5-5.1); TOTAL PROTEIN 5.4 GM/DL (6.4-8.2); TROPONIN I 0.03 NG/ML (< 0.10)
[2019-07-05] MEDS: PIPERACILLIN/TAZOBACTAM SOD 2.25 GM in D5W MINI-BAG PLUS 50 ML IV SCH ×3 (04:32→16:55)
[2019-07-05] MEDS: DEXTROSE 50% 50 ML SYRINGE IV PRN (04:35)
[2019-07-05] MEDS: HumaLOG INSULIN (NovoLOG) PER UNIT SC SCH ×4 (06:00→17:31)
[2019-07-05] MEDS ORDERED: SODIUM BICARBONATE 8.4% INJ 50 ML SYRINGE IV STA (06:40)
[2019-07-05] MEDS ORDERED: SUCCINYLCHOLINE INJ 200 MG/10 ML VIAL (J0330) IV STA (06:40)
[2019-07-05] MEDS ORDERED: propofoL 200 MG/20 ML VIAL IV ONE (06:45)
[2019-07-05] MEDS ORDERED: VASOPRESSIN INJ 20 UNITS/ML VIAL IM ONE (06:45)
[2019-07-05] MEDS ORDERED: NOREPINEPHRINE BITARTRATE 8 MG in D5W 492 ML IV SCH (06:45)
[2019-07-05] MEDS ORDERED: NOREPINEPHRINE BITARTRATE 4 MG in D5W 500 ML IV SCH (06:45)
[2019-07-05] MEDS ORDERED: PHENYLEPHRINE INJ 10MG/ML VIAL (J2370) IV ONE (06:45)
--- NOTE | 2019-07-05 07:39 | RO ---
DATE OF PROCEDURE: 07/05/2019 SURGEON: Dr. Rafa Garg PROCEDURE: Insertion of triple lumen central venous catheter, site is right subclavian vein. INDICATION: Need for IV access in a patient who is critically ill with respiratory failure and hypotension. Procedure performed emergently. DESCRIPTION OR PROCEDURE: After the right subclavian vein was prepped and draped in the usual sterile manner, the right subclavian was easily cannulated. In a modified Seldinger technique, a triple lumen central venous catheter was easily advanced. Good venous return was obtained from all three ports. Line was then sutured in place. Sterile dressing was applied. Chest x-ray showed no pneumothorax and the line in good position.
--- NOTE | 2019-07-05 07:51 | CCN ---
DATE: 07/05/2019 START TIME: 199 STOP TIME: 313 I was called to attend to Juan Higgins. He had just been intubated by anesthesia. In essence, this is a 74-year-old gentleman with known advanced obstructive lung disease. He has known diabetes, chronic kidney disease presents to the emergency room not feeling well. Recently, he was felt to have a cellulitis and signed out against medical advice. On admission here, earlier im the day at 0914 on 07/04/2019, he was noted to have a potassium of 6.1, BUN 75, creatinine 2.96 and a bicarbonate of 15. An arterial blood gas obtained at that time. BNP at that time 11,048. Attempts at treatment were had throughout the day. Earlier this morning he was known to have changes in his mental status. Blood gas was obtained at that time with a pH of 7.205, pCO2 35.2 and a pO2 179.8. It was felt he could not protect his airway. He was therefore intubated by anesthesia. On my arrival, ventilator settings were adjusted. They were having troubles with venous access and a triple-lumen central venous catheter was easily placed in the right subclavian vein. This is dictated under separate cover and took less than 5 minutes time. They were unable to get adequate blood pressure measurements. Therefore, an A-line was placed in the right femoral artery, albumin-globulin again occupying less than 5 minutes time. Chest x-ray done shows no pneumothorax. The endotracheal tube (ET) tube is in good position. On exam, heart rate was 110, blood pressure initially 119. He was on Levophed at that time. He has spontaneous movement of all of his extremities. He is not following commands. He has diffuse edema. Jugular venous system is felt to be distended in the midline. Chest shows diffuse expiratory wheezing. Expansion is symmetric. Cardiac exam is distant but tachycardic. Peripheral pulses are palpable with diffuse edema. Abdomen shows well-healed surgical scar. He has a colostomy that appears to be working. Scar consistent with his recent right hip replacement. Neurologically he moves all extremities but is sedate. Repeat chemistries are currently pending. White blood cell count at 2:54 p.m. yesterday shows 10.7, hemoglobin 7.9, platelet count 246, 000. Chest x-ray initially on presentation to my eye shows cardiomegaly and vascular congestion. Most pressing problems requiring my presence at the bedside: 1. Profound metabolic acidosis, multifactorial. 2. Renal failure, progressive. 3. Suspect volume overload. 4. Advanced obstructive lung disease, steroid dependent. 5. Chronic anticoagulation with Xarelto. 6. Hypertension. At this point, ventilator manipulations have been made. He will be sedated with propofol as needed. He was on some vasopressors and these will be weaned as able. Certainly his outpatient metformin may be playing a role in his acidosis. I am sure this is what is driving his hyperkalemia. I have spoken with the primary service in this regard. At this point, he remains critically ill. His prognosis is guarded at best. If he does not make reasonable urine, he may very well need dialysis and I have spoken with the primary service in this regard as well. They may need to consult nephrology but I believe attempts at diuresis would be first and foremost. At this point, proceed as outlined above. I left the bedside at 0314 hours. A total of 74 minutes of critical care delivered at the bedside, less than 10 minutes of which included procedures.
[2019-07-05 07:56] LABS: CALCIUM LEVEL 9.1 MG/DL (8.8-10.2); CREATININE FOR GFR 3.05 MG/DL (0.70-1.30); GLOMERULAR FILTRATION RATE 21.5 (>42); POTASSIUM SERUM 5.4 MEQ/L (3.5-5.1)
--- NOTE | 2019-07-05 08:08 | ECGEPIP ---
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
--- NOTE | 2019-07-05 08:10 | ECHO ---
DATE OF PROCEDURE: 07/04/2019 REFERRING PHYSICIAN: Dr. Milian REASON FOR STUDY: Shortness of breath. 2-D MEASUREMENTS: IVS: 1.0 cm LV: 3.8 cm LVPW: 1.1 cm LA: 4.1 cm Aorta: 3.0 cm IVC: 2.1 cm DOPPLER MEASUREMENTS: Peak velocity across the aortic valve: 2.3 m/s Peak velocity across the LVOT: 1.8 m/s Mitral E: 1.3, Mitral A: 1.5 with a ratio of 0.9 Maximum tricuspid valve velocity: 2.8 m/s 2D COMMENTS: 1. Technically limited study due to poor acoustic window. 2. The left ventricle size is normal, as well as left ventricle wall thickness. Left ventricular systolic function also appeared to be at the lower limit of normal, estimated at 55-60%. 3. Mildly enlarged left atrium. The right atrium also appeared to be mildly enlarged. In limited views, the right ventricle appeared to be mildly enlarged but was corine well. 4. The atrial septum appeared to be normal without evidence of defect or shunt. 5. Normal aortic root. 6. Trace pericardial effusion noted, no evidence of cardiac tamponade. 7. Mildly calcified aortic valve, leaflet excursion was not well visualized. No mitral valve, tricuspid valve. The pulmonic valve and proximal pulmonary artery branches were not well visualized. 8. The inferior vena cava was mildly enlarged, central venous pressure might be elevated. DOPPLER: It detects, in limited views, trace aortic regurgitation, trace to mild mitral regurgitation, trace to mild tricuspid regurgitation. The calculated pulmonary artery systolic pressure varies between 30-40 mmHg. Abnormal relaxation pattern was noted across the mitral valve leaflets, as well as the mitral valve annulus consistent with features of grade 1 left ventricular diastolic dysfunction. IMPRESSION: 1. Technically limited study due to poor acoustic window. 2. Low normal global left ventricular systolic function. There are features of grade 1 left ventricular diastolic dysfunction manifested by abnormal relaxation. 3. Aortic valve sclerosis with trace aortic regurgitation and probably mild aortic stenosis. 4. Trace to mild mitral regurgitation with a mildly enlarged left atrium. 5. Trace to mild tricuspid regurgitation with mild pulmonary hypertension. The right atrium appeared to be mildly enlarged. 6. There are features of elevated central venous pressure, the inferior vena cava was mildly enlarged. 7. Trace pericardial effusion noted in limited views. 8. The patient was noted during the test to be tachycardiac with a heart rate that varied between 100 beats per minute and 110 beats per minute. MTDD
--- NOTE | 2019-07-05 08:12 | REP ---
Clinical: Central line placement. Comparison: 07/05/2019 at 02:06 a.m. Findings: Endotracheal tube 3.5 cm above the alanna. Nasogastric tube has been removed. Right subclavian catheter with tip in the SVC/right atrium. Mediastinum and cardiac silhouette are stable. Left lower lobe/retrocardiac consolidation along with small left pleural effusion and diffuse increased alveolar and interstitial markings remain unchanged. Impression: 1. Right subclavian catheter with tip in the SVC/right atrium. No pneumothorax. 2. Pleuroparenchymal changes remain stable. Electronically Signed by Samuel Hurley MD 07/05/2019 08:03 A
[2019-07-05] MEDS: amLODIPine 5 MG TAB PO SCH (08:14)
[2019-07-05] MEDS: atenoloL 25 MG TAB PO SCH (08:14)
--- NOTE | 2019-07-05 08:14 | REP ---
Clinical: Nasogastric tube placement. Comparison: 07/05/2019 and 02:06 a.m. Findings: A nasogastric tube is identified extending just beyond the left hemidiaphragm with its side port in the distal esophagus warranting advancement. Endotracheal tube and right subclavian catheter in satisfactory position. Left lower lobe consolidation and small left pleural effusion remains stable. Diffuse chronic increased interstitial markings again noted. No pneumothorax. Skeletal structures stable. Impression: 1. Nasogastric tube warrants advancement. Electronically Signed by Samuel Hurley MD 07/05/2019 08:05 A
--- NOTE | 2019-07-05 08:14 | RO ---
DATE OF PROCEDURE: Jul 05 2019 PREPROCEDURE DIAGNOSIS: Hypotension, site is right femoral artery. Procedure was performed emergently. POSTPROCEDURE DIAGNOSIS: PROCEDURE: Insertion of arterial catheter. SURGEON: Dr. Rafa Garg YARD LABORER: ANESTHESIA: ESTIMATED BLOOD LOSS: PROCEDURE: After the right femoral area was prepped and draped in the usual sterile manner, the artery was cannulated with large bore needle. Modified Seldinger technique, an intra-arterial catheter was easily placed. Good arterial flow noted through the catheter and good arterial wave form noted on the monitor. Line was then flushed and sutured in place and sterile dressing applied. No complication noted. MTDD
[2019-07-05] MEDS ORDERED: SODIUM BICARBONATE 8.4% INJ 50 ML SYRINGE IV ONE (08:45)
[2019-07-05] MEDS: OMEPRAZOLE 20 MG CAP PO SCH (08:47)
[2019-07-05] MEDS ORDERED: FUROSEMIDE 100 MG/10 ML VIAL (J1940) IV ONE (09:00)
[2019-07-05] MEDS: ASPIRIN 81 MG ENTERIC TAB PO SCH (09:00)
[2019-07-05 09:19] LABS: ABG BASE EXCESS -13.9 (-2.0-2.0); ABG HCO3 12.6 MEQ/L (22.0-26.0); ABG O2 SATURATION 99.2 % (95.0-99.0); ABG PARTIAL PRESSURE CO2 31.5 mmHg (35.0-45.0); ABG PARTIAL PRESSURE O2 178.2 mmHg (75.0-100.0); ABG STANDARD HCO3 13.6 MEQ/L (22.0-26.0); ABG TOTAL CO2 13.6 MEQ/L (23.0-31.0)
[2019-07-05] MEDS: CHLORHEXIDINE GLUCONATE 0.12 % 15ML UDC (PERIDEX ORAL RINSE) MT SCH ×2 (09:19→20:02)
[2019-07-05 09:20] LABS: ABG pH (ARTERIAL) 7.221 UNITS (7.350-7.450)
[2019-07-05] MEDS: ASCORBIC ACID 500 MG TAB PO SCH ×3 (09:20→20:08)
[2019-07-05] MEDS: FERROUS SULFATE 325MG TAB PO SCH ×2 (09:20→20:03)
[2019-07-05] MEDS: PANTOPRAZOLE 40MG INJ (PROTONIX) (C9113) IV SCH (09:20)
[2019-07-05] MEDS: RIVAROXABAN 10 MG TAB (XARELTO) PO SCH (09:21)
[2019-07-05] MEDS: VITAMIN D 1,000 INTERNATIONAL UNITS TABLET PO SCH (09:21)
[2019-07-05] MEDS: FOLIC ACID 1 MG TAB PO SCH (09:21)
[2019-07-05] MEDS: busPIRone 5 MG TAB PO SCH ×2 (09:21→20:02)
[2019-07-05] MEDS: methylPREDNISolone INJ 125 MG/2 ML VIAL (J2930) IV SCH ×2 (09:21→17:29)
[2019-07-05] MEDS: MAGNESIUM OXIDE 400 MG TAB (MAG-OX) PO SCH ×2 (09:22→20:03)
[2019-07-05] MEDS: propylthiouraciL 50 MG TAB PO SCH ×2 (09:24→20:04)
--- NOTE | 2019-07-05 10:04 | CCN ---
DATE OF VISIT: 07/05/2019 START TIME: 814. STOP TIME: 901. I again attended Juan Higgins. The patient has been examined. The chart reviewed. He remains on Levophed. He has been given some bicarbonate by the primary service. Repeat blood gas shows pH 7.221, PCO2 of 31.5, pO2 of 78.2, and our pressure-regulated volume control (PRVC) rate is 68, tidal volume 450, positive end-expiratory pressure (PEEP) of 8, and FIO2 of 40%. He is making 40-50 mL of urine per hour. Latest electrolytes show a sodium of 139, potassium of 5.4, chloride 111, CO2 remains 17, BUN 70, creatinine 3.05, glucose 198. White blood cell count 18,000. No differential this morning. Hemoglobin 8.1 and platelet count 254,000. On examination, he is more sedate on propofol. He is synchronous with the ventilator. Pupils do react. I do believe jugular venous distention is notable. Trachea is in the midline. Chest shows dependent crackles. No wheeze. Expansion is symmetric, and the lung feels otherwise with markedly diminished breath sound intensity. Cardiac examination: Generally regular. Peripheral pulses diminished. Edema is unchanged. Abdomen again shows his colostomy bag. There are active bowel sounds, although they are diminished. Extremities show chronic venous stasis changes and edema. Neurologically, he is sedate. The most pressing problems requiring my presence at the bedside: 1. Metabolic acidosis. 2. Respiratory failure, multifactorial, mainly on the basis of the above. 3. Advanced obstructive lung disease. 4. Chronic steroid dependence. 5. Progressive renal failure. 6. Hyperkalemia, multifactorial. At this point, I suggest continuing the bicarbonate drip. It may need to be maximized. Nephrology will see him later today. He is making some urine, and I believe he is grossly volume overloaded, and I will try to diurese him pending nephrology evaluation. If he has not had a recent echocardiogram, we will pursue that. Troponins to date have been negative. He remains on Xarelto. Ulcer prophylaxis is ordered through the primary service. At this point, he is critically ill. I am in agreement with his broad-spectrum antimicrobials. He certainly may have an underlying pneumonitis, but with the negative lactate, I do not believe this is shock on the basis of sepsis. We will proceed as outlined above. I left the bedside at 0902. An additional 47 minutes of critical care delivered at the bedside, not including procedures.
[2019-07-05] MEDS: NOREPINEPHRINE BITARTRATE 16 MG in D5W 484 ML IV SCH ×2 (10:28→20:01)
[2019-07-05] MEDS ORDERED: VASOPRESSIN INJ 40 UNITS in NS 499 ML IV SCH (12:00)
[2019-07-05] MEDS ORDERED: HEPARIN 1,000 UNITS/ML 10ML VIAL (FOR RADIOLOGY& DIALYSIS ONLY) IV PRN (12:00)
[2019-07-05] MEDS ORDERED: SODIUM CHLORIDE 0.9% INJ 10 ML SYR IV PRN (12:00)
[2019-07-05] MEDS ORDERED: VASOPRESSIN INJ 20 UNITS in NS 499 ML IV SCH (12:00)
[2019-07-05 12:33] LABS: INR 3.22; PROTHROMBIN TIME 32.9 SECONDS (11.8-14.0)
[2019-07-05 12:34] LABS: PARTIAL THROMBOPLASTIN TIME 49.9 SECONDS (25.0-38.4)
[2019-07-05] MEDS ORDERED: VASOPRESSIN INJ 40 UNITS in NS 498 ML IV SCH (13:00)
--- NOTE | 2019-07-05 14:11 | REP ---
Clinical: Line placement. Comparison: 07/05/2019 at 04:16 a.m.. Findings: Double-lumen dialysis catheter via right IJ approach extends into the superior vena cava. No pneumothorax. Endotracheal tube, nasogastric tube, and right subclavian catheter remains stable. Diffuse chronic interstitial changes along with left lower lobe consolidation and small pleural reaction again noted. Impression: 1. Double lumen catheter via right IJ approach in SVC. No pneumothorax. 2. Stable chronic changes and superimposed left lower lobe consolidation with small effusion Electronically Signed by Samuel Hurley MD 07/05/2019 02:02 P
--- NOTE | 2019-07-05 14:36 | REP ---
CT brain: 07/05/2019. Indication: Altered mental status. Stroke. Comparison: 03/26/2017. Technique: Unenhanced axial CT images of the brain were obtained from skull base to vertex. Findings: There is no acute intracranial hemorrhage, acute cortical infarction, mass effect or hydrocephalous. Patchy areas of cerebral hemisphere white matter hypoattenuation are redemonstrated. Periosteal mucosal thickening within the ethmoid and sphenoid sinuses is present most pronounced on the left. Impression: No acute intracranial process. Sequelae of chronic microangiopathic ischemic disease. Paranasal sinus mucosal disease. Electronically Signed by Edi Weber DO 07/05/2019 02:28 P
--- NOTE | 2019-07-05 15:06 | REP ---
Clinical: Septic shock and renal failure. Technique: Axial noncontrast images from the lung bases to the pubic symphysis with coronal and sagittal re-formations. Findings: Examination is limited by motion artifact. Lung bases demonstrate bibasilar atelectasis and small pleural effusions. Liver, spleen, pancreas, bilateral adrenal glands and right kidney appear grossly normal by noncontrast evaluation. The left kidney demonstrates a 3.2 cm posterior exophytic isointense lesion which is nonspecific. Evidence for prior cholecystectomy. The enteric system demonstrates colostomy via the left anterior abdominal wall with peristomal hernia containing nonobstructed loop of bowel. There is no evidence for bowel obstruction or obvious acute inflammatory process. Pelvis demonstrates Davila catheter in collapsed bladder and evidence for prior prostatectomy. No ascites. No obvious adenopathy. Abdominal aorta without aneurysm. Skeletal structures demonstrate extensive degenerative changes as well as chronic compression deformities which remain relatively stable compared to 2017. Impression: 1. 3.2 cm isodense left renal lesion warrant ultrasound follow-up to exclude mass versus complex proteinaceous cyst. 2. Parastomal hernia at the colostomy site containing nonobstructed loop of bowel. 3. No obvious acute process. 4. Chronic changes as described above. Electronically Signed by Samuel Hurley MD 07/05/2019 02:57 P
[2019-07-05] MEDS ORDERED: MIDAZOLAM INJ 2 MG/2 ML VIAL (J2250) IV ONE (17:30)
--- NOTE | 2019-07-05 17:35 | IPNPDOC ---
Date Seen The patient was seen on 07/05/19. Progress Note HISTORY OF PRESENT ILLNESS: 74-year-old male with past medical history of diabetes mellitus, hypertension, COPD, hyperthyroidism, chronic kidney disease presents to the emergency room with shaking of his arms and malaise. Patient was admitted 1 month ago for right hip fracture status post mechanical fall, presented to emergency room 1 week ago with cellulitis, was advised to be admitted by emergency room staff but patient refused to be admitted and went home. Patient has a history of signing out AMA. Patient currently reports he has had poor oral intake for the past few days, chills and fever, urinary incontinence. He denies any chest pain, nausea, vomiting, abdominal pain or diarrhea. 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 07/05/2019 Patient decompensated overnight, requiring endotracheal intubation for airway protection and vasopressors to maintain adequate blood pressure. Patient seen in the morning, sedated, moving extremities, unable to follow commands. PHYSICAL EXAMINATION: VITAL SIGNS: Please see below. GENERAL: No distress HEENT: 7.5 ET tube 25 cm at the lip NECK: Right IJ dialysis catheter CARDIOVASCULAR EXAMINATION: Tachycardic RESPIRATORY EXAMINATION: Scattered rhonchi ABDOMINAL EXAMINATION: Soft, nondistended, hypoactive bowel sounds, ostomy with good output EXTREMITIES: Moving all extremities SKIN: Erythema on all extremities NEUROLOGICAL EXAMINATION: Sedated on mechanical ventilation LABORATORY DATA: See below. MICROBIOLOGY: Please see below. ASSESSMENT: 74-year-old male with past medical history of type please mellitus, hypertension, COPD, hypothyroidism and chronic kidney disease is admitted for septic shock and acute renal failure. PLAN: 1. Septic shock cultures pending, Zosyn, continue Levophed and vasopressin to maintain adequate blood pressure, intubated on mechanical ventilation, home health care social worker following. 2. Acute on chronic kidney disease. With significant metabolic acidosis and electrolyte abnormalities, evaluated by nephrology, plan for CVVHD. 3. Diabetes mellitus. Hold metformin, sliding still insulin every 6 hours. 4. Hypertension. Holding all meds for now DVT prophylaxis: None GI prophylaxis: Home PPI VS, I&O, 24H, Fishbone Vital Signs/I&O Vital Signs Date Time Temp Pulse Resp B/P (MAP) Pulse Ox O2 Delivery O2 Flow Rate FiO2 07/05/19 17:11 111 22 131/43 98 Ventilator 25 12/5/19 16:00 97.6 07/05/19 12:00 40.0 I&O- Last 24 Hours up to 6 AM 07/05/19 06:00 Intake Total 3470 ml Output Total 110 ml Balance 3360 ml Laboratory Data 24H LABS Laboratory Tests 2 07/04/19 18:52: Lactic Acid Level 1.6 07/04/19 20:58: Anion Gap 11, Glomerular Filtration Rate 21.4L, Calcium Level 8.8 07/05/19 01:02: Bedside Glucose (Misc Panel) 152H 07/05/19 01:11: Blood Gas Bicarbonate Standard 14.0L, Arterial Blood pH 7.205*L, Arterial Blood Partial Pressure CO2 35.2, Arterial Blood Partial Pressure O2 179.8H, Arterial Blood Total CO2 14.7L, Arterial Blood HCO3 13.6L, Arterial Blood Base Excess - 13.3L, Arterial Blood Oxygen Saturation 99.2H 07/05/19 03:09: Blood Gas Bicarbonate Standard 14.7L, Arterial Blood pH 7.217*L, Arterial Blood Partial Pressure CO2 36.5, Arterial Blood Partial Pressure O2 147.5H, Arterial Blood Total CO2 15.6L, Arterial Blood HCO3 14.5L, Arterial Blood Base Excess - 12.3L, Arterial Blood Oxygen Saturation 99.1H 07/05/19 03:37: Nucleated Red Blood Cells % (auto) 0.2H, Anion Gap 6L, Glomerular Filtration Rate 21.0L, Lactic Acid Level 1.0, Calcium Level 8.7L, Phosphorus Level 5.7H, M agnesium Level 1.9, Total Bilirubin 0.4, Aspartate Amino Transf (AST/SGOT) 95H, Alanine Aminotransferase (ALT/SGPT) 36, Alkaline Phosphatase 92, Troponin I 0.03, Total Protein 5.4L, Albumin 2.8L, Albumin/Globulin Ratio 1.08 07/05/19 06:32: Bedside Glucose (Misc Panel) 120H 07/05/19 07:15: Anion Gap 11, Glomerular Filtration Rate 21.5L, Calcium Level 9.1, Central Line Venous O2 Saturation 99.4 07/05/19 09:03: Blood Gas Bicarbonate Standard 13.6L, Arterial Blood pH 7.221*L, Arterial Blood Partial Pressure CO2 31.5L, Arterial Blood Partial Pressure O2 178.2H, Arterial Blood Total CO2 13.6L, Arterial Blood HCO3 12.6L, Arterial Blood Base Excess - 13.9L, Arterial Blood Oxygen Saturation 99.2H 07/05/19 11:50: Bedside Glucose (Misc Panel) 237H 07/05/19 12:01: Prothrombin Time 32.9H, Prothromb Time International Ratio 3.22, Activated Partial Thromboplast Time 49.9H CBC/BMP Laboratory Tests 07/04/19 20:58 07/05/19 03:37 07/05/19 07:15 Microbiology Microbiology 07/04/19 Stool Occult Blood (IAN) - Final, Complete 07/04/19 Blood Culture - Preliminary, Resulted No growth after 24 hours . All specim... 07/04/19 Respiratory Virus Panel (PCR) (IAN) - Final, Complete 07/04/19 Blood Culture - Preliminary, Resulted No growth after 24 hours . All specim... SHARLA LUI MD Jul 05, 2019 17:35
[2019-07-05 18:20] LABS: HEMATOCRIT 31.4 % (42.0-52.0); HEMOGLOBIN 9.4 g/dl (13.5-17.5); MEAN CORPUSCULAR HEMOGLOBIN 30.4 pg (27.0-33.0); MEAN CORPUSCULAR HGB CONC 29.9 g/dl (32.0-36.5); MEAN CORPUSCULAR VOLUME 101.6 fl (80.0-96.0); PLATELET COUNT, AUTOMATED 303 10^3/uL (150-450); RED BLOOD COUNT 3.09 10^6/uL (4.30-6.10); WHITE BLOOD COUNT 11.8 10^3/uL (4.0-10.0)
[2019-07-05 18:47] LABS: CREATININE FOR GFR 2.45 MG/DL (0.70-1.30)
[2019-07-05 18:48] LABS: CALCIUM LEVEL 9.1 MG/DL (8.8-10.2); GLOMERULAR FILTRATION RATE 27.7 (>42); MAGNESIUM LEVEL 2.2 MG/DL (1.8-2.4); PHOSPHORUS LEVEL 5.2 MG/DL (2.5-4.9); POTASSIUM SERUM 5.3 MEQ/L (3.5-5.1)
[2019-07-05] MEDS ORDERED: PILL CUTTER 1 EACH XX PRN (20:00)
[2019-07-05] MEDS: SIMVASTATIN 20 MG TAB PO SCH (20:02)
[2019-07-05] MEDS: AMITRIPTYLINE 25 MG TAB PO SCH (20:03)
[2019-07-05] MEDS: RAMELTEON 8 MG TAB (ROZEREM) PO SCH (20:08)
--- NOTE | 2019-07-05 20:53 | PHACANCOPD ---
PHARMACY VANCOMYCIN DOSING Pt Demographics Demographics Patient Age:74 , Weight:96.200 , Gender: male Adjusted Body Weight Date: 07/05/19, Adjusted Body Weight: [76.8] Kg Events Past 24 Hours Events Past 24 Hours: NO: Dialysis, Diuretic Therapy, Change in CrCl, Fever, Elevation in WBC, Pending Diagnostics, Pending Procedures, Other Vancomycin Vancomycin indication: severe sepsis Vancomycin Target Ranges: 15-20 mcg/ml Vancomycin Load Y/N: Yes Load Dose Date Time Vancomycin Load Dose: 2g Date: 07/05/19 Time: 21:00 Vancomycin Dose Date: 07/05/19. Current Vancomycin Dose: [1g iv q24h] Intermittent Dosing?: No Labs Labs Item Value Date Time White Blood Count 10.7 10^3/uL H 07/04/19 1454 White Blood Count 18.0 10^3/uL H 07/05/19 0337 White Blood Count 11.8 10^3/uL H 07/05/19 1810 Creatinine 3.12 MG/DL H 07/05/19 0337 Creatinine 3.05 MG/DL H 07/05/19 0715 Creatinine 2.45 MG/DL H 07/05/19 1810 Micro Microbiology 07/04/19 Stool Occult Blood (IAN) - Final, Complete 07/04/19 Blood Culture - Preliminary, Resulted No growth after 24 hours . All specim... 07/04/19 Respiratory Virus Panel (PCR) (IAN) - Final, Complete 07/04/19 Blood Culture - Preliminary, Resulted No growth after 24 hours . All specim... Creatinine Clearance Date:07/05/19. Creatinine Clearance: [24.2ml/min]. Assessment and Plan Maintaining Current Dose?: Yes Reason for dose change: No Dose Change Pharmacist Note Pharmacist Note Date: 07/05/19. Pharmacist note: Pt is a 74 year old male being treated for sepsis goal trough 15-20mcg/ml. The patient was last treated with vancomycin in 2017. His Scr is currently elevated from baseline. To achieve goal a 2g loading dose was started 07/05/19 @21. Maintenance therapy will consist of 1g IV every 24h. We will continue to monitor and adjust the dose as needed. RENETTA BARRON [facility] Jul 05, 2019 20:53
[2019-07-05] MEDS ORDERED: VANCOMYCIN HCL 1,000 MG, VIAL MATE ADAPTER 1 EACH in D5W 250 ML IV SCH (21:00)
[2019-07-05] MEDS ORDERED: VANCOMYCIN HCL 1,000 MG, VIAL MATE ADAPTER 1 EACH in D5W 250 ML IV ONE (22:00)
--- NOTE | 2019-07-05 22:05 | CR ---
DATE OF CONSULTATION: 07/05/2019 REQUESTING PHYSICIAN: Dr. Modesta Milian REASON FOR CONSULTATION: Acute renal failure superimposed on chronic kidney disease (CKD), stage III in this patient with septic shock, hyperkalemia and metabolic acidosis. HISTORY OF PRESENT ILLNESS: Juan Higgins history is obtained from chart review and discussion with the other health care providers. The patient is unable to provide any history due to clinical condition. Juan Higgins is previously unknown to me. He is a 74-year-old male with a past medical history of hypertension, chronic obstructive pulmonary disease (COPD), hyperthyroidism, CKD stage III, gout, type 2 diabetes and other comorbid conditions mentioned below. The patient was recently admitted 1 month ago for right hip fracture status post mechanical fall and status post closure, reduction and internal fixation of right femur with the cephalomedullary nail. That admission was complicated by acute renal failure and hyperkalemia. He was discharged on May 14 at his baseline renal function, creatinine was approximately 1.2. The patient returned to the ER on June 26 for cellulitis and at that time he had an acute kidney injury with creatinine of 2.0, however, he refused to be admitted and went home. He now presented back to the emergency room yesterday July 04 with complaint of generalized malaise and shaking of his arms which was probably some rigors and he reported poor oral intake, chills, fevers and incontinence of urine. The patient was admitted and decompensated over night. He was transferred to the intensive care unit after developing altered mental status. He was intubated and he was given aggressive IV fluids. However, he had recurrent persistent hypotension, arterial line was placed and the patient was started on Levophed pressor support. Laboratory studies showed worsening renal function and anion gap metabolic acidosis and hyperkalemia. His urine output was poor and imaging studies revealed fluid overload and nephrology evaluation was subsequently requested. PAST MEDICAL HISTORY: Diabetes mellitus, CKD stage III, baseline creatinine of around 1.2, hypertension, COPD, hyperthyroidism, gout, neuropathy, GERD, dyslipidemia, depression, history of duodenal ulcer in the past. PAST SURGICAL HISTORY Right eye laser surgery, gallbladder removal, partial colectomy and a diverting colostomy. Internal fixation right femur with cephalomedullary nail. Appendectomy. ALLERGIES: QUINOLONES, AZITHROMYCIN, IBUPROFEN, LEVOFLOXACIN, TOBRAMYCIN, ZOLPIDEM. HOME MEDICATIONS: Reviewed. Allopurinol 300 mg by mouth, amitriptyline 25 mg by mouth at bedtime, amlodipine 5 mg by mouth daily, ascorbic acid 500 mg by mouth three times daily, aspirin 81 mg by mouth daily, atenolol 75 mg by mouth daily, BuSpar 15 mg by mouth twice daily, cephalexin 500 mg by mouth twice daily, vitamin D3 5000 units by mouth daily, citalopram 20 mg by mouth daily, B12 1000 mcg daily, ferrous sulfate 325 mg by mouth twice daily, Advair twice a day, folic acid 1 mg by mouth daily, Lasix 40 mg by mouth daily, gabapentin 300 mg by mouth at bedtime, lisinopril 10 mg by mouth daily, magnesium oxide 800 mg by mouth twice a day, metformin 500 mg by mouth twice a day, omeprazole 40 mg daily, prednisone 5 mg by mouth daily, propylthiouracil 50 mg in the morning, 25 mg in the evening, Rameltion 8 mg tablet by mouth at bedtime, Xarelto 10 mg by mouth daily, ropinirole 4 mg by mouth at bedtime, simvastatin 20 mg by mouth at bedtime. FAMILY HISTORY Not available to me at present but per chart of per chart review there is no family history of malignancy. SOCIAL HISTORY He is retired, lives with his significant other. He is a nonsmoker. there is apparently no alcohol or illicit drug use as per chart review. REVIEW OF SYSTEMS: Unable to obtain secondary to clinical condition. VITAL SIGNS: Temperature 97.6, pulse 112, respiratory rate 22, blood pressure 127/40, saturating 99% on 25% FIO2. GENERAL: The patient is seen, intubated and sedated in the intensive care unit, elderly male. Eyes are closed. He grimaces when I touch his arms or his groin. Those are the areas were he has some cellulitic changes. An endotracheal tube in place. His pupils are reactive. His tongue is moist. The jugular veins are distended. CARDIAC: S1, S2. There is no edema in the legs, but his arms are swollen. There are crackles at the bases. There is coarse bilateral air entry. His feet are cold. ABDOMEN: Soft. There is a colostomy bag on the left with green stool in the bag. There are hypoactive bowel sounds. The arms are noted to be erythematous and swollen. There is also some erythema around the groin and the patient grimaces with the palpation of the legs or the groin. There is an indwelling Davila catheter. NEUROLOGIC: He is sedated, but moving all extremities. There is a right subclavian triple-lumen catheter. There is right femoral arterial line. LABS: Sodium 138, potassium 5.3, bicarbonate 17, BUN 70, creatinine 3.0, magnesium 2.2, hemoglobin 9.4, white count 11.8. Microbiology: Blood cultures: No growth for [address] of the abdomen and pelvis: Small pleural effusions. No ascites, possible mass versus complex cyst in the left kidney. Chest x-ray: Diffuse chronic interstitial changes along with left lower lobe consolidation. INPATIENT MEDICATIONS Levophed drip running at 30 mcg, vasopressor at 4 mcg, propofol infusion, Zosyn 2.25 IV every 6 hourly, albuterol, amitriptyline 25 mg by mouth at bedtime. I discontinued his amlodipine and discontinued atenolol and discontinued gabapentin and discontinued oral Prilosec, vitamin C 500 mg by mouth three times a day. He is also on BuSpar 15 mg by mouth twice daily, iron 325 mg by mouth twice daily, folic acid 1 mg by mouth daily, insulin, magnesium 100 mg by mouth twice a day, Solu-Medrol 80 mg IV every 8 hourly, Versed as needed, Protonix 40 mg IV daily. He received valtassa, he received a dose of Dave-Synephrine, propylthiouracil 25 mg by mouth at bedtime, and 50 mg by mouth in the morning. Ramelteon 8 mg by mouth at bedtime, simvastatin 20 mg by mouth at bedtime. He received 100 mEq of IV sodium bicarbonate. PROBLEMS: 1. Oligoanuric renal failure in the setting of severe septic shock in this patient who had an acute kidney injury at the time of his ER visit on June 21, but left against medical advice and now returns with worsening renal function, sepsis, hyperkalemia and acidosis. He received aggressive IV fluids without any improvement in urine output. He needed to be intubated. He is now on two pressors and given his hemodynamic instability, oliguria, hyperkalemia and acidosis we started him on the CRRT with fluid removal to be titrated depending on his mean arterial pressures. 2. Septic shock with elevated Mixed venous and leukocytosis. Source unclear. Maybe related to cellulitis. His blood cultures show no growth thus far. He is requiring significant pressor support, Levophed and vasopressin. He is on broad-spectrum antibiotic with Zosyn and I do not see that he was given any vancomycin and I suggest to broaden the antimicrobials. His echocardiogram was not consistent with cardiogenic shock and his mixed venous is elevated consistent with a septic shock, the source of which remains yet to be teased out. Given his chronic steroid dependence he is also receiving IV Solu-Medrol and I would suggest to switch this to IV hydrocortisone especially if he continues to require significant ongoing pressors. In view of his shock I have discontinued the amlodipine and atenolol that were ordered, but were never administered. 2. Hyperkalemia. It is secondary to renal failure. It will improve with the [employer]ASS[employer]CH[employer]IC. 3. Anion gap, metabolic acidosis. Curiously he has a normal lactic acid despite severe hypotension requiring two pressors. He did however have an elevated mixed venous. His acidosis is secondary to renal failure and it will improve with CRRT. 4. Ventilator dependent respiratory failure managed by the photographic developer and printer. Possible left basilar infiltrate receiving Zosyn, his FIO2 requirements are minimal and in view of his severe hypotension and significant pressor requirements I am only going to be removing net negative 50 mL an hour from CRRT. Thank you for involving me in the care of Mr. Higgins. I will be happy to follow him along with you. Critical care time 40 minutes MTDD
[2019-07-05] MEDS: MORPHINE 2 MG/ML 1ML VIAL (J2270) IV PRN (22:36)
[2019-07-06] VITALS (33 sets, daily range): BP systolic 93–132; BP diastolic 41–61; O2SAT 99
[2019-07-06] MEDS: PIPERACILLIN/TAZOBACTAM SOD 2.25 GM in D5W MINI-BAG PLUS 50 ML IV SCH ×6 (00:12→21:52)
[2019-07-06] MEDS: HumaLOG INSULIN (NovoLOG) PER UNIT SC SCH ×5 (00:18→23:28)
[2019-07-06] MEDS: propofoL 1,000 MG in IV 1 EA IV SCH ×3 (00:26→20:12)
[2019-07-06] MEDS: IPRATROPIUM 0.5MG/ALBUTEROL 2.5MG INH SOL UD 3ML (DUONEB)(J7620) NEB SCH ×4 (01:17→19:40)
[2019-07-06] MEDS: methylPREDNISolone INJ 125 MG/2 ML VIAL (J2930) IV SCH (03:32)
[2019-07-06] MEDS: MORPHINE 2 MG/ML 1ML VIAL (J2270) IV PRN ×3 (03:33→14:26)
--- NOTE | 2019-07-06 03:37 | REPVR ---
PROCEDURE INFORMATION: Exam: CT Head Without Contrast Exam date and time: 07/06/2019 2:31 AM Age: 74 years old Clinical history: Other: Unequal pupil; Additional info: Unequal pupil and hypothermia TECHNIQUE: Imaging protocol: Computed tomography of the head without contrast. Radiation optimization: All CT scans at this facility use at least one of these dose optimization techniques: automated exposure control; mA and/or kV adjustment per patient size (includes targeted exams where dose is matched to clinical indication); or iterative reconstruction. COMPARISON: CT Head without contrast 2019-07-05 14:04 FINDINGS: Brain: Chronic right occipital infarct. Right lateral frontal lobe chronic encephalomalacia. Couple small chronic left avery-cerebellar lacunar infarcts. Diffuse mild cerebral age related volume loss. Mild patchy low attenuation in the white matter compatible with mild chronic small vessel ischemic disease. No midline shift, mass, fluid collection, or evidence of hemorrhage. Ventricles: Ventricular enlargement proportional to volume loss. Bones/joints: Unremarkable. No acute fracture. Sinuses: Mild scattered paranasal sinus mucosal thickening and secretions. Mild scattered paranasal sinus mucosal thickening and secretions. Mastoid air cells: Visualized mastoid air cells are well aerated. Soft tissues: Unremarkable. IMPRESSION: No acute intracranial abnormality. Electronically signed by: Boyd Nagy On 07/06/2019 03:37:43 AM
[2019-07-06 05:57] LABS: ABG BASE EXCESS -7.1 (-2.0-2.0); ABG HCO3 18.1 MEQ/L (22.0-26.0); ABG O2 SATURATION 98.7 % (95.0-99.0); ABG PARTIAL PRESSURE CO2 35.1 mmHg (35.0-45.0); ABG PARTIAL PRESSURE O2 133.4 mmHg (75.0-100.0); ABG STANDARD HCO3 18.7 MEQ/L (22.0-26.0); ABG TOTAL CO2 19.2 MEQ/L (23.0-31.0); ABG pH (ARTERIAL) 7.331 UNITS (7.350-7.450)
[2019-07-06 06:06] LABS: HEMOGLOBIN 8.5 g/dl (13.5-17.5); MEAN CORPUSCULAR HEMOGLOBIN 30.4 pg (27.0-33.0); MEAN CORPUSCULAR HGB CONC 30.4 g/dl (32.0-36.5); PLATELET COUNT, AUTOMATED 252 10^3/uL (150-450); WHITE BLOOD COUNT 8.5 10^3/uL (4.0-10.0)
[2019-07-06] MEDS: NOREPINEPHRINE BITARTRATE 16 MG in D5W 484 ML IV SCH (06:30)
[2019-07-06 06:37] LABS: ALBUMIN 2.7 GM/DL (3.2-5.2); BILIRUBIN,TOTAL 0.5 MG/DL (0.2-1.0); CALCIUM LEVEL 9.1 MG/DL (8.8-10.2); CREATININE FOR GFR 1.74 MG/DL (0.70-1.30); GLOMERULAR FILTRATION RATE 41.1 (>42); MAGNESIUM LEVEL 2.2 MG/DL (1.8-2.4); PHOSPHORUS LEVEL 3.9 MG/DL (2.5-4.9); POTASSIUM SERUM 4.5 MEQ/L (3.5-5.1); TOTAL PROTEIN 5.2 GM/DL (6.4-8.2)
--- NOTE | 2019-07-06 08:37 | REP ---
Clinical: Status post intubation. Comparison: 07/05/2019. Findings: Endotracheal tube approximately 4 cm above the alanna. Nasogastric tube courses below left hemidiaphragm. Double-lumen catheter with tip in the SVC. Right subclavian catheter with tip in the SVC/right atrium. Mediastinum and cardiac silhouette stable. Lung valdez demonstrate chronic interstitial changes. Subtle retrocardiac atelectasis cannot be excluded. No effusion. No pneumothorax. Skeletal structures stable. Impression: 1. Lines and tubes in satisfactory position. 2. Subtle retrocardiac atelectasis cannot be excluded. Electronically Signed by Samuel Hurley MD 07/06/2019 08:28 A
[2019-07-06] MEDS: HYDROCORTISONE 100 MG/2 ML VIAL (J1720 PER 1) IV SCH ×3 (08:59→20:13)
[2019-07-06] MEDS: CHLORHEXIDINE GLUCONATE 0.12 % 15ML UDC (PERIDEX ORAL RINSE) MT SCH ×2 (08:59→20:32)
[2019-07-06] MEDS: MAGNESIUM OXIDE 400 MG TAB (MAG-OX) PO SCH ×2 (09:02→20:41)
[2019-07-06] MEDS: VITAMIN D 1,000 INTERNATIONAL UNITS TABLET PO SCH (09:02)
[2019-07-06] MEDS: ASPIRIN 81 MG CHEW TABLET PO SCH (09:02)
[2019-07-06] MEDS: PANTOPRAZOLE 40MG INJ (PROTONIX) (C9113) IV SCH (09:03)
[2019-07-06] MEDS: FERROUS SULFATE 325MG TAB PO SCH ×2 (09:03→20:33)
[2019-07-06] MEDS: busPIRone 5 MG TAB PO SCH ×2 (09:03→20:32)
[2019-07-06] MEDS: FOLIC ACID 1 MG TAB PO SCH (09:03)
[2019-07-06] MEDS: LEVEMIR (INSULIN DETEMIR) 1 UNITS/0.01ML SC SCH ×2 (09:04→20:34)
--- NOTE | 2019-07-06 09:04 | CCN ---
DATE: 07/06/2019 Critical care time was 1 hour. This excludes all procedures. Mr. Higgins remains intubated on mechanical ventilation. Pressor therapy has decreased now to Levophed of 8 mg. He, at this point in time, is sedated on mechanical ventilation. Sedation has been removed during my exam for sedation vacation for evaluation for the purpose of central extubation depending on his blood pressure. He continues on continuous Veno-Venous Hemofiltration (CVVH) as he presented with acute decompensated renal failure and pulmonary edema. PHYSICAL EXAMINATION: The patient is hypothermic with a temperature of 95.0. Pulse is 102, respiratory rate of 16, blood pressure is 103/47 with a mean arterial pressure of 78. That was based on arterial line and 7-o'clock this morning, oxygen saturation is 99% on 0.21 FiO2. General: Sedated on mechanical ventilation. No purposeful movements at this point in time. There have been purposeful movements yesterday. Awaiting neurologic exam to be performed during sedation vacation. Pupils are chronically unequal. It appears that the patient has had likely prior surgical procedures effecting the pupils. Pupils currently are approximately 2- 3 mm, difficult to assess whether or not they are reacted to light. Mucous membranes are moist. Tongue is midline. Neck is supple. No tracheal deviation. Jugular venous pulse (JVP) is difficult to assess. Lymphs: No cervical, supraclavicular, axillary adenopathy. Cardiac: Grade 2/6 systolic murmur without rub or gallop. Systemic edema is present, reportedly improved from yesterday. Pulmonary: Clear to auscultation without rales, rhonchi or wheezes. Abdomen is obese, soft, nontender, nondistended with a colostomy. No blood in stool. Skin: Diffuse erythematous exfoliated throughout both extremities, upper greater than lower. There is a macular blanchable component along the thighs. Does not appear to be cellulitis. No fluctuance. No large open wounds. Small areas of excoriation. There is no jaundice. There is no bruising. Musculoskeletal: Significant muscle wasting without evidence of joint effusion recent trauma. LABORATORY DATA: Laboratory evaluation shows a white blood cell count of 8.5, hemoglobin of 8.5 with a platelet count of 252. Sodium is 138, potassium 4.5, chloride is 104, bicarb is up to 20 from 17, anion gap is at 14, BUN is 41, creatinine is 1.74 with a glucose of 253, ionized calcium is 5.0, phosphorus is 3.9 with a magnesium of 2.2, albumin is low at 2.7. Abdominal CT yesterday showed bilateral pleural effusions, renal cyst. Head CT was unremarkable for acute intracranial abnormality. IMPRESSION: 1. Acute respiratory failure secondary to ability to compensate for severe metabolic acidosis. Will continue on mechanical ventilation until metabolic process is resolved. Will continue to monitor for earliest time for extubation. Ventilator associated precautions in place. Will attempt spontaneous breathing trial this morning as soon as the patient awakes. 2. Renal failure, acute on chronic on CVVH: Appreciate renal input. 3. Anion gap acidosis from uremia: No evidence of lactic acidosis. 4. Anemia: No indication for transfusion at this point in time. No evidence of acute hemorrhage. Likely secondary to renal failure and CVVH 5. Chronic protein malnutrition. We will initiate tube feeds if the patient remains intubated. 6. Chronic obstructive pulmonary disease with history of chronic steroid dependence. I have switched him to hydrocortisone from Solu-Medrol due to his hypotension and shock. Once this is resolved, he can go back to his usual low dose of steroids as he has no evidence of COPD exacerbation at this point in time. Currently, on nebulized therapy. When he is extubated, will require further long-acting inhaled therapy to be added to his regimen. 7. Hypotension: Decreasing vasopressor requirements over time. The patient is also on propofol which can contribute to his hypotension. I, as mentioned above, added hydrocortisone for possibility of adrenal suppression. 8. Deep venous thrombosis (DVT) prophylaxis. The patient's INR yesterday was 3.22, likely still has elevated INR today. Will recheck INR tomorrow to see if DVT prophylaxis will need to be initiated. 9. Gastrointestinal (GI) prophylaxis: The patient is on Protonix, which is important in the face of a chronic steroid use and his history of a duodenal ulcer. 10. Polypharmacy: I have discontinued multiple outpatient medications. Elavil was discontinued this morning. Will continue to limited medications to what is actually needed for his hospital stay in order to prevent side effects. 11. Diabetes: On sliding scale lispro. Glucose is above 200, has been up to above 200 since admission. Will add Levemir. 12. Hyperthyroidism: Currently on propylthiouracil. 13. Question of infection: No source identified as of yet. The patient is on Zosyn and vancomycin. Will obtain procalcitonin. Because of the severity of illness, antibiotics will be continued until this has been resulted. MTDD
[2019-07-06] MEDS: propylthiouraciL 50 MG TAB PO SCH ×2 (09:05→20:34)
[2019-07-06] MEDS: ALBUTEROL SULFATE 2.5 MG/0.5 ML INH NEB SOLN NEB PRN (11:07)
[2019-07-06] MEDS: MIDAZOLAM INJ 2 MG/2 ML VIAL (J2250) IV PRN ×5 (14:42→23:20)
--- NOTE | 2019-07-06 18:09 | IPNPDOC ---
Date Seen The patient was seen on 07/06/19. Progress Note HISTORY OF PRESENT ILLNESS: 74-year-old male with past medical history of diabetes mellitus, hypertension, COPD, hyperthyroidism, chronic kidney disease presents to the emergency room with shaking of his arms and malaise. Patient was admitted 1 month ago for right hip fracture status post mechanical fall, presented to emergency room 1 week ago with cellulitis, was advised to be admitted by emergency room staff but patient refused to be admitted and went home. Patient has a history of signing out AMA. Patient currently reports he has had poor oral intake for the past few days, chills and fever, urinary incontinence. He denies any chest pain, nausea, vomiting, abdominal pain or diarrhea. 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 07/05/2019 Patient decompensated overnight, requiring endotracheal intubation for airway protection and vasopressors to maintain adequate blood pressure. Patient seen in the morning, sedated, moving extremities, unable to follow commands. 07/06/2019 Patient remains intubated, improving with CRRT, requiring less vasopressor support, off sedation in the morning, moving all extremities but doesn't open eyes or follow commands. PHYSICAL EXAMINATION: VITAL SIGNS: Please see below. GENERAL: No distress HEENT: 7.5 ET tube 25 cm at the lip NECK: Right IJ dialysis catheter CARDIOVASCULAR EXAMINATION: Tachycardic RESPIRATORY EXAMINATION: Scattered rhonchi ABDOMINAL EXAMINATION: Soft, nondistended, hypoactive bowel sounds, ostomy with good output EXTREMITIES: Moving all extremities SKIN: Erythema on all extremities NEUROLOGICAL EXAMINATION: Comfortable on mechanical ventilation LABORATORY DATA: See below. MICROBIOLOGY: Please see below. ASSESSMENT: 74-year-old male with past medical history of type please mellitus, hypertension, COPD, hypothyroidism and chronic kidney disease is admitted for septic shock and acute renal failure. PLAN: 1. Septic shock cultures negative to date, Zosyn, vancomycin added, continue Levophed, vasopressin discontinued, stress dose steroids started, intubated on mechanical ventilation, model engine mechanic following. 2. Acute on chronic kidney disease. With significant metabolic acidosis and electrolyte abnormalities, started on CRRT yesterday, improving, nephrology following. 3. Diabetes mellitus. Hold metformin, sliding still insulin every 6 hours. Started on Levemir 5 units twice a day 4. Hypertension. Holding all meds for now DVT prophylaxis: None GI prophylaxis: Home PPI VS, I&O, 24H, Fishbone Vital Signs/I&O Vital Signs Date Time Temp Pulse Resp B/P (MAP) Pulse Ox O2 Delivery O2 Flow Rate FiO2 07/06/19 17:30 116 122/48 98 Ventilator 25 07/06/19 16:00 97.7 26 07/06/19 12:00 21.0 I&O- Last 24 Hours up to 6 AM 07/06/19 06:00 Intake Total 2574.4 ml Output Total 1040 ml Balance 1534.4 ml Laboratory Data 24H LABS Laboratory Tests 2 07/05/19 18:10: Nucleated Red Blood Cells % (auto) 0.5H, Anion Gap 13, Glomerular Filtration Rate 27.7L, Calcium Level 9.1, Whole Blood Ionized Calcium 5.1, Phosphorus Level 5.2H, Magnesium Level 2.2 07/06/19 00:15: Bedside Glucose (Misc Panel) 309H 07/06/19 05:46: Nucleated Red Blood Cells % (auto) 0.7H, Anion Gap 14, Glomerular Filtration Rate 41.1L, Calcium Level 9.1, Whole Blood Ionized Calcium 5.0, Phosphorus Level 3.9#, Magnesium Level 2.2, Blood Gas Bicarbonate Standard 18.7L, Arterial Blood pH 7.331L, Arterial Blood Partial Pressure CO2 35.1, Arterial Blood Partial Pressure O2 133.4H, Arterial Blood Total CO2 19.2L, Arterial Blood HCO3 18.1L, Arterial Blood Base Excess -7.1L, Arterial Blood Oxygen Saturation 98.7, Total Bilirubin 0.5, Aspartate Amino Transf (AST/SGOT) 28, Alanine Aminotransferase (ALT/SGPT) 28, Alkaline Phosphatase 83, Total Protein 5.2L, Albumin 2.7L, Albumin/Globulin Ratio 1.08, Procalcitonin 0.37 07/06/19 06:25: Bedside Glucose (Misc Panel) 239H 07/06/19 12:02: Bedside Glucose (Misc Panel) 200H CBC/BMP Laboratory Tests 07/05/19 18:10 07/06/19 05:46 Microbiology Microbiology 07/04/19 Stool Occult Blood (IAN) - Final, Complete 07/04/19 Blood Culture - Preliminary, Resulted No Growth after 48 hours. All Specime... 07/04/19 Respiratory Virus Panel (PCR) (IAN) - Final, Complete 12/4/19 Blood Culture - Preliminary, Resulted No Growth after 48 hours. All Specime... SHARLA LUI MD Jul 06, 2019 18:09
[2019-07-06 18:23] LABS: HEMATOCRIT 26.6 % (42.0-52.0); HEMOGLOBIN 8.3 g/dl (13.5-17.5); MEAN CORPUSCULAR HEMOGLOBIN 30.4 pg (27.0-33.0); MEAN CORPUSCULAR HGB CONC 31.2 g/dl (32.0-36.5); MEAN CORPUSCULAR VOLUME 97.4 fl (80.0-96.0); PLATELET COUNT, AUTOMATED 235 10^3/uL (150-450); RED BLOOD COUNT 2.73 10^6/uL (4.30-6.10); WHITE BLOOD COUNT 9.8 10^3/uL (4.0-10.0)
[2019-07-06 19:12] LABS: CALCIUM LEVEL 9.2 MG/DL (8.8-10.2); CREATININE FOR GFR 1.42 MG/DL (0.70-1.30); MAGNESIUM LEVEL 2.4 MG/DL (1.8-2.4); PHOSPHORUS LEVEL 2.9 MG/DL (2.5-4.9); POTASSIUM SERUM 3.9 MEQ/L (3.5-5.1)
--- NOTE | 2019-07-06 19:21 | IPNPDOC ---
Date Seen The patient was seen on 07/05/19. Progress Note Procedure note for Denver Catheter placed on 07/05/19 INDICATION: CRRT PROCEDURE DEBEAKER: Sharla Lui CONSENT: The procedure was performed emergently and the permission was implied because of the emergent nature. PROCEDURE SUMMARY: A time out was performed. My hands were washed immediately prior to the procedure. I wore a surgical cap, mask with protective eyewear, full gown and sterile gloves throughout the procedure. The patient was placed in Trendelenburg position. Right chest region was prepped using chlorhexidine scrub and draped in sterile fashion using a full drape and sterile probe cover employed. The medial and lateral heads of the sternocleidomastoid muscle were identified as was the carotid pulse. The Internal Jugular vein was identified using the ultrasound. Anesthesia was achieved over the vein using 1% lidocaine. Using real-time out of plane guidance, the introducer needle was inserted into the Internal Jugular vein under direct ultrasound visualization. Venous blood was withdrawn. The syringe was removed and a guidewire was advanced into the introducer needle. The guidewire was visualized in the Internal Jugular Vein by ultrasound. A small incision was made at the skin surface with a scalpel and the introducer needle was exchanged for a dilator over the guidewire which was then exchanged for the larger dilator. After appropriate dilation was obtained, the dilator was exchanged over the wire for a 15 cm Denver catheter. The wire was removed and the catheter was sutured in place at 15 cm. A sterile sorbaview shield was placed over the catheter at the insertion site. The patient tolerated the procedure without any hemodynamic compromise. At time of procedure completion, all ports aspirated and flushed properly; 1.2 cc & 1.0 cc of Heparin was injected into the appropriate port. Post-procedure chest x-ray confirmed appropriate placement. Estimated blood loss is <10 cc. VS, I&O, 24H, Fishbone Vital Signs/I&O Vital Signs Date Time Temp Pulse Resp B/P (MAP) Pulse Ox O2 Delivery O2 Flow Rate FiO2 07/06/19 18:43 119 24 119/51 96 Ventilator 07/06/19 18:25 25 07/06/19 16:00 21.0 07/06/19 16:00 97.7 I&O- Last 24 Hours up to 6 AM 07/06/19 06:00 Intake Total 2574.4 ml Output Total 1040 ml Balance 1534.4 ml Laboratory Data 24H LABS Laboratory Tests 2 07/06/19 00:15: Bedside Glucose (Misc Panel) 309H 07/06/19 05:46: Nucleated Red Blood Cells % (auto) 0.7H, Blood Gas Bicarbonate Standard 18.7L, Arterial Blood pH 7.331L, Arterial Blood Partial Pressure CO2 35.1, Arterial Blood Partial Pressure O2 133.4H, Arterial Blood Total CO2 19.2L, Arterial Blood HCO3 18.1L, Arterial Blood Base Excess -7.1L, Arterial Blood Oxygen Saturation 98.7, Anion Gap 14, Glomerular Filtration Rate 41.1L, Calcium Level 9.1, Whole Blood Ionized Calcium 5.0, Phosphorus Level 3.9#, Magnesium Level 2.2, Total Bilirubin 0.5, Aspartate Amino Transf (AST/SGOT) 28, Alanine Aminotransferase (ALT/SGPT) 28, Alkaline Phosphatase 83, Total Protein 5.2L, Albumin 2.7L, Albumin/Globulin Ratio 1.08, Procalcitonin 0.37 07/06/19 06:25: Bedside Glucose (Misc Panel) 239H 07/06/19 12:02: Bedside Glucose (Misc Panel) 200H 07/06/19 18:00: Nucleated Red Blood Cells % (auto) 0.5H, Anion Gap 9, Glomerular Filtration Rate 52.0, Calcium Level 9.2, Whole Blood Ionized Calcium 4.9, Phosphorus Level 2.9#, Magnesium Level 2.4 07/06/19 18:08: Bedside Glucose (Misc Panel) 229H CBC/BMP Laboratory Tests 07/06/19 05:46 07/06/19 18:00 Microbiology Microbiology 07/04/19 Stool Occult Blood (IAN) - Final, Complete 07/04/19 Blood Culture - Preliminary, Resulted No Growth after 48 hours. All Specime... 07/04/19 Respiratory Virus Panel (PCR) (IAN) - Final, Complete 07/04/19 Blood Culture - Preliminary, Resulted No Growth after 48 hours. All Specime... SHARLA LUI MD Jul 06, 2019 19:21
[2019-07-06] MEDS: RAMELTEON 8 MG TAB (ROZEREM) PO SCH (20:32)
[2019-07-06] MEDS: SIMVASTATIN 20 MG TAB PO SCH (20:32)
[2019-07-06] MEDS ORDERED: VANCOMYCIN HCL 750 MG, VIAL MATE ADAPTER 1 EACH in D5W 250 ML IV SCH (21:00)
[2019-07-06] MEDS ORDERED: KCL 20MEQ IN 100ML SWI (KRUN) 20 MEQ in IV 1 EA IV ONE ×2 (21:00)
[2019-07-06] MEDS ORDERED: VANCOMYCIN HCL 500 MG in D5W MINI-BAG PLUS 100 ML IV SCH (22:00)
--- NOTE | 2019-07-06 23:46 | IPN ---
DATE: 07/06/2019 SUBJECTIVE: The patient is seen and examined this morning in the intensive care unit. He remains intubated and sedated. His pressor requirements have significantly decreased. Yesterday, he was on Levophed and vasopressin. Today, he is only on Levophed at 5 mcg. He has been tolerating continuous renal replacement therapy (CRRT) with fluid removal. His central venous pressure (CVP) today is down to 10. He is hypothermic. He is on a bear hugger. He remains with very poor urine output overnight. His FiO2 requirements on the ventilator are minimal. Temperature 97.4 rectally, pulse 125, respiratory rate 18, blood pressure 105/46, saturating 96% on 21% FiO2 and yesterday was 2.6 liters, urine output yesterday was 950 mL. General: The patient is seen, intubated and sedated. He grimaces with palpation of his arms. There is endotracheal tube in place. Mucous membranes are moist. Jugular veins do not appear elevated today. Cardiac: S1-S2 systolic murmur. There is upper extremity edema that is appreciable. Pulmonary: Bilateral air entry without crackle or rale. Abdomen is soft and obese. There is a colostomy with greenish pasty stool. Skin shows diffuse erythematous changes to both arms and also some erythema to the inner groin. No appreciable open wounds. Genitourinary shows Davila catheter. There is a healed surgical scar on the right hip. There is an arterial line present in the right femoral and there is a dialysis catheter present in the right neck. LABORATORY: White count 8.5, hemoglobin 8.5, platelet 252, sodium 138, potassium 4.5, bicarbonate 20, magnesium 2.2. Microbiology: Blood cultures no growth for 48 hours. IMAGING STUDIES: Chest x-ray July 06 reviewed and noted no pleural effusions. INPATIENT MEDICATIONS: The patient is on Levophed drip f5 mcg, propofol, vasopressin has been held. He continues on renally dosed Zosyn and vancomycin. His amitriptyline and vitamin C are noted to be held. He is now on IV hydrocortisone 50 mg every 6 hours, insulin. His remainder medications are unchanged from prior. PROBLEMS: 1. Oliguric renal failure in the setting of severe shock in this patient who had an acute kidney injury at the time of his emergency room (ER) visit on November 25, but left against medical advice and now returns with worsening renal function, sepsis hyperkalemia and acidosis. He was started on continuous renal replacement therapy (CRRT) yesterday with an optimal influent dose of 25 mL per kg per hour. He had judicious fluid removal via continuous renal replacement therapy (CRRT) about 50 mL per hour net negative over the past 24 hours and his pressors were also weaned. His central venous pressure (CVP) today is down to 10 and I have written new orders for fluid removal only if MAP is greater than 65; and in that case to remove 50 mL per hour. 2. Septic shock. Septic shock with elevated mixed venous and leukocytosis, source is unclear. Blood cultures thus far no growth. His pressor requirements are decreasing. He is on renally dosed vancomycin and Zosyn and he is also receiving stress dose steroids given his chronic steroid dependence. 3. Left renal lesion, possibly mass, needs to be worked up, but it can be done after acute issues have resolved. 4. Hyperkalemia/anion gap metabolic acidosis. They have both improved with the continuous renal replacement therapy (CRRT) and new prescription orders were written for ongoing continuous hemodialysis. 5. Anemia. Appears to be present over the past 2 months. In early May, his hemoglobin was around 11-12, but it has since decreased significantly likely due to recent hip surgery, inflammation, renal failure. He can be transfused as needed.
[2019-07-07] VITALS (26 sets, daily range): BP systolic 107–160; BP diastolic 49–98; O2SAT 93–97
[2019-07-07] MEDS: IPRATROPIUM 0.5MG/ALBUTEROL 2.5MG INH SOL UD 3ML (DUONEB)(J7620) NEB SCH ×4 (01:54→20:41)
[2019-07-07] MEDS: HYDROCORTISONE 100 MG/2 ML VIAL (J1720 PER 1) IV SCH ×4 (02:00→19:53)
[2019-07-07] MEDS: propofoL 1,000 MG in IV 1 EA IV SCH ×4 (02:01→23:20)
[2019-07-07] MEDS: PIPERACILLIN/TAZOBACTAM SOD 2.25 GM in D5W MINI-BAG PLUS 50 ML IV SCH ×4 (03:12→21:31)
[2019-07-07] MEDS: MIDAZOLAM INJ 2 MG/2 ML VIAL (J2250) IV PRN ×2 (04:13→08:13)
[2019-07-07 04:55] LABS: HEMOGLOBIN 7.9 g/dl (13.5-17.5); MEAN CORPUSCULAR HEMOGLOBIN 30.6 pg (27.0-33.0); MEAN CORPUSCULAR HGB CONC 31.6 g/dl (32.0-36.5); MEAN CORPUSCULAR VOLUME 96.9 fl (80.0-96.0); PLATELET COUNT, AUTOMATED 209 10^3/uL (150-450); RED BLOOD COUNT 2.58 10^6/uL (4.30-6.10); WHITE BLOOD COUNT 11.8 10^3/uL (4.0-10.0)
[2019-07-07 05:07] LABS: INR 1.46; PROTHROMBIN TIME 17.5 SECONDS (11.8-14.0)
[2019-07-07 05:19] LABS: CALCIUM LEVEL 8.8 MG/DL (8.8-10.2); CREATININE FOR GFR 1.29 MG/DL (0.70-1.30); GLOMERULAR FILTRATION RATE 58.1 (>42); MAGNESIUM LEVEL 2.1 MG/DL (1.8-2.4); POTASSIUM SERUM 3.8 MEQ/L (3.5-5.1)
[2019-07-07 05:20] LABS: ALBUMIN 2.7 GM/DL (3.2-5.2); ALT/SGPT 22 U/L (12-78); BILIRUBIN,TOTAL 0.5 MG/DL (0.2-1.0); BLOOD UREA NITROGEN 23 MG/DL (7-18); CALCIUM LEVEL 8.6 MG/DL (8.8-10.2); CARBON DIOXIDE LEVEL 26 MEQ/L (21-32); CHLORIDE LEVEL 103 MEQ/L (98-107); CREATININE FOR GFR 1.25 MG/DL (0.70-1.30); GLOMERULAR FILTRATION RATE > 60.0 (>42); GLUCOSE, FASTING 235 MG/DL (70-100); POTASSIUM SERUM 3.7 MEQ/L (3.5-5.1); SODIUM LEVEL 137 MEQ/L (136-145); TOTAL PROTEIN 5.2 GM/DL (6.4-8.2); VANCOMYCIN RANDOM 21.1 UG/ML
[2019-07-07] MEDS ORDERED: KCL 20MEQ IN 100ML SWI (KRUN) 20 MEQ in IV 1 EA IV ONE ×2 (05:45)
[2019-07-07] MEDS: HumaLOG INSULIN (NovoLOG) PER UNIT SC SCH ×3 (05:47→18:24)
[2019-07-07 05:50] LABS: ABG HCO3 24.9 MEQ/L (22.0-26.0); ABG O2 SATURATION 97.6 % (95.0-99.0); ABG PARTIAL PRESSURE CO2 36.8 mmHg (35.0-45.0); ABG PARTIAL PRESSURE O2 91.7 mmHg (75.0-100.0); ABG STANDARD HCO3 25.4 MEQ/L (22.0-26.0); ABG TOTAL CO2 26.1 MEQ/L (23.0-31.0); ABG pH (ARTERIAL) 7.449 UNITS (7.350-7.450)
--- NOTE | 2019-07-07 06:17 | PHACANCOPD ---
PHARMACY VANCOMYCIN DOSING Pt Demographics Demographics Patient Age:74 , Weight:95.500 , Gender: male Adjusted Body Weight Date: 07/05/19, Adjusted Body Weight: [76.8] Kg Vancomycin Vancomycin indication: severe sepsis Vancomycin Target Ranges: 15-20 mcg/ml Vancomycin Load Y/N: Yes Load Dose Date Time Vancomycin Load Dose: 2g Date: 07/05/19 Time: 21:00 Vancomycin Dose Date: 07/07/19. Current Vancomycin Dose: [1g iv Q12H] Intermittent Dosing?: No Labs Labs Item Value Date Time White Blood Count 11.8 10^3/uL H 07/07/19433 Glomerular Filtration Rate 58.1 07/07/19434 Creatinine 1.29 MG/DL 07/07/19434 Blood Urea Nitrogen 22 MG/DL H 07/07/19434 Random Vancomycin Level 21.1 UG/ML 07/07/19433 Vital Signs Label Value Date Time Patient Temperature 96.6 degrees F 07/07/19 0600 Temperature Source Rectal 07/07/19 0600 Micro Microbiology 07/04/19 Stool Occult Blood (IAN) - Final, Complete 07/04/19 Blood Culture - Preliminary, Resulted No Growth after 48 hours. All Specime... 07/04/19 Respiratory Virus Panel (PCR) (IAN) - Final, Complete 07/04/19 Blood Culture - Preliminary, Resulted No Growth after 48 hours. All Specime... Creatinine Clearance Date:07/05/19. Creatinine Clearance: [24.2ml/min]. Pending Labs Trough 07-07 @1999 Assessment and Plan Maintaining Current Dose?: No Reason for dose change: Trough too low Pharmacist Note Pharmacist Note Date: 07/05/19. Pharmacist note: Random level 8 hours post dose was 21.1 . Dosing changed to 1000mg q12h. Trough ordered for 07-07 @1999 to confirm dosing. Will continue to monitor and make adjustments as needed. HAYDEN SARKAR PHARMACY Jul 07, 2019 06:17
[2019-07-07] MEDS: NOREPINEPHRINE BITARTRATE 16 MG in D5W 484 ML IV SCH (06:30)
[2019-07-07] MEDS ORDERED: SODIUM PHOSPHATE INJ 30 MMOL in D5W 250 ML IV ONE (06:30)
[2019-07-07] MEDS: CHLORHEXIDINE GLUCONATE 0.12 % 15ML UDC (PERIDEX ORAL RINSE) MT SCH ×2 (08:29→20:21)
[2019-07-07] MEDS: VITAMIN D 1,000 INTERNATIONAL UNITS TABLET PO SCH (08:30)
[2019-07-07] MEDS: propylthiouraciL 50 MG TAB PO SCH ×2 (08:30→20:23)
[2019-07-07] MEDS: PANTOPRAZOLE 40MG INJ (PROTONIX) (C9113) IV SCH (08:31)
[2019-07-07] MEDS: LEVEMIR (INSULIN DETEMIR) 1 UNITS/0.01ML SC SCH ×2 (08:31→20:21)
[2019-07-07] MEDS: VANCOMYCIN HCL 1,000 MG, VIAL MATE ADAPTER 1 EACH in D5W 250 ML IV SCH ×2 (08:31→20:36)
[2019-07-07] MEDS: busPIRone 5 MG TAB PO SCH ×2 (08:31→20:22)
[2019-07-07] MEDS: ASPIRIN 81 MG CHEW TABLET PO SCH (08:32)
[2019-07-07] MEDS: MAGNESIUM OXIDE 400 MG TAB (MAG-OX) PO SCH ×2 (08:32→20:22)
[2019-07-07] MEDS: FERROUS SULFATE 325MG TAB PO SCH ×2 (08:33→20:25)
[2019-07-07] MEDS: FOLIC ACID 1 MG TAB PO SCH (08:33)
--- NOTE | 2019-07-07 08:34 | REP ---
AP PORTABLE CHEST: 07/07/2019 at 7 AM. CLINICAL HISTORY: Post intubation. COMPARISON: 07/06/2019, 07/05/2019, 07/04/2019. FINDINGS: Endotracheal tube, again about 4 cm above the alanna, unchanged. Nasogastric tube coursing into the stomach, well beyond the GE junction. There is a right jugular dialysis catheter with tip in the SVC near the right atrium. There is a right subclavian catheter also noted with tip in SVC. All of these unchanged. Chronic interstitial changes and some retrocardiac left lower lobe atelectasis or infiltrate again seen. Some linear atelectatic change in the left mid lower lung zone now. Tortuous calcified aorta. Left atrial enlargement is noted. The spine shows some dextrorotatory curvature lower thoracic region. Heart size exaggerated by portable technique. No dave edema. IMPRESSION: 1. Lines and tubes, unchanged. 2. Retrocardiac left lower lobe atelectasis or infiltrate and some chronic interstitial changes. 3. No new findings. Electronically Signed by Zeeshan Watson MD 07/07/2019 07:40 P
[2019-07-07 12:09] LABS: ABG BASE EXCESS -2.9 (-2.0-2.0); ABG HCO3 21.4 MEQ/L (22.0-26.0); ABG O2 SATURATION 92.9 % (95.0-99.0); ABG PARTIAL PRESSURE CO2 34.7 mmHg (35.0-45.0); ABG PARTIAL PRESSURE O2 69.3 mmHg (75.0-100.0); ABG TOTAL CO2 22.4 MEQ/L (23.0-31.0); ABG pH (ARTERIAL) 7.407 UNITS (7.350-7.450)
--- NOTE | 2019-07-07 12:28 | CCN ---
DATE: 07/07/2019 CRITICAL CARE PROGRESS NOTE SUBJECTIVE: Mr. Higgins was seen at bedside this morning. He remains critically ill. He is currently intubated with mechanical ventilation secondary to acute respiratory failure secondary to severe metabolic acidosis. The patient has today more spontaneous movements, however, continues to not follow or make purposeful movements. He is continued on continuous renal replacement therapy. He has had approximately 50 mL per hour over the past 24 hours removed. He does still appear slightly volume overloaded. Patient's central venous pressure (CVP) this morning was 17. OBJECTIVE: Vital Signs: Temperature 96.6, pulse 106, respiratory rate 16, blood pressure 108/51, pulse oximetry 95%, currently on a ventilator, pressure support with positive end expiratory pressure of 8 with a peak inspiratory pressure of 13, and an FiO2 of 25%. General: The patient does move all limbs spontaneously, though does not make any purposeful commands. He continues to appear critically ill. He does not currently appear in any acute distress. HEENT: The patient's head is atraumatic, is normocephalic. There is no tracheal deviation. He is currently sedated on mechanical ventilation. He does have unequal pupils, which appears to be a chronic issue. The patient's mucous membranes are pink and moist. Neck: Supple. Unable to adequately assess jugular venous pressure (JVP) as the patient has a very smith neck. Lymphatics: No cervical, supraclavicular, or axillary lymphadenopathy. Cardiovascular: Patient has a 2/6 systolic ejection murmur. There is no clicks or rubs. He is slightly tachycardic, there is a regular rhythm. Pulmonary: Patient has clear vesicular breath sounds bilaterally, on mechanical ventilation, and there is no rales, rhonchi or wheezing. Abdomen: Patient is obese. His abdomen is soft. It is nondistended, it is nontender. There is a colostomy bag on the left with some drainage as the patient has pulled on it. There is no blood in the patient's stool. Skin: The patient continues to have a diffuse erythematous exfoliating rash throughout both extremities, the upper extremities mainly, as well as in the groin and on the abdomen and chest. Extremities: The patient has sacral pitting edema. He has full and equal pulses bilateral lower and upper extremities. Neurologic: There are no focal neurological deficits. Patient has chronic unequal pupils. LABORATORY DATA: Hematology: White blood cells 11.8, hemoglobin 7.9, hematocrit 25.0, platelet count 209. Chemistry: Sodium 138, potassium 3.8, chloride 104, CO2 of 26, BUN 22, creatinine 1.29, glucose 237. Calcium 8.8, phosphorus 2.0, magnesium 2.1, total bilirubin 0.5, AST 19, ALT 22, alkaline phosphatase 82, total protein 5.2. Coagulation: INR 1.46. Arterial blood gas - pH 7.4, pCO of 36, pO2 91.7. IMAGING: Chest x-ray demonstrating retrocardiac left lower lobe atelectasis or infiltrate, and some chronic interstitial changes. ASSESSMENT AND PLAN: 1. Acute respiratory failure secondary to severe metabolic acidosis. Patient is continued on mechanical ventilation. He is currently receiving continuous renal replacement therapy (CRRT) secondary to likely anion gap metabolic acidosis secondary to uremia. Patient is not making spontaneous breathing from previous attempts; he is placed on pressure support today. Will continue patient to use light sedation with propofol. Will avoid using any benzodiazepines. 2. Acute renal failure, currently on CRRT. Patient came in with acute renal failure. Currently on CRRT, being followed by nephrology, input is greatly appreciated. 3. Anion gap metabolic acidosis secondary to uremia. Patient has metabolic acidosis, which eventually led to acute respiratory failure due to his inability to compensate. He has no evidence of lactic acidosis. Currently on CRRT. Will continue to monitor. 4. Anemia. No indication for transfusion. Patient was anticoagulated before coming; however, there is no evidence of current hemorrhage or bleeding. This is likely secondary to his renal failure. Will continue to monitor. 5. Protein malnutrition. Patient has been started on tube feeds as he remains intubated. 6. Chronic obstructive pulmonary disease with a history of chronic steroid use. Patient was previously on Solu-Medrol. However, given that he has been hypotensive and in shock, he has been changed to hydrocortisone for stress dosing. 7. Deep vein thrombosis (DVT) prophylaxis. Patient's international normalized ratio (INR) today is 1.46. Therefore, will begin DVT prophylaxis with heparin 5000 units every 8 hours. 8. Gastrointestinal prophylaxis. The patient was continued on Protonix. He has a history of chronic steroid use and duodenal ulcers. 9. Diabetes. The patient is currently on sliding scale with Lispro, have added Levemir. 10. Hyperthyroidism. Patient is currently on propylthiouracil. Total critical care time was 54 minutes. ADDENDUM: I, Gage Guzman, agree with the assessment and plan as outlined by Dr. Queen. I performed an independent history and physical. Critical care time was performed by myself, as mentioned above. This excludes all procedures. Addendum dictated: Gage Guzman DO 07/07/2019 1325 Addendum transcribed: alexandria 07/07/2019 1409 MTDD
[2019-07-07] MEDS: HEPARIN SOD (PORCINE) 5000 UNITS/ML VIAL SQ SCH ×2 (13:14→21:31)
--- NOTE | 2019-07-07 14:51 | IPN ---
DATE: 07/07/2019 CRITICAL CARE NOTE Mr. Higgins is seen this morning on his bedside in intensive care unit. He remains anuric and has been on continuous renal replacement therapy (CRRT) on his bedside. He is still on the ventilator and unresponsive. Nursing staff reports that through the night, he has been weaned off the pressors and currently he is hemodynamically stable without any pressor support. He remains on antibiotics and currently afebrile, though quite tachycardiac. PHYSICAL EXAMINATION: Temperature 98.2 degrees Fahrenheit, heart rate 120 per minute and respiratory rate 32 per minute. Blood pressure 137/60 mmHg and oxygen saturation 94% on the ventilator with 25% FiO2. He has a right internal jugular vein dialysis catheter in place. His head is atraumatic. Neck veins are not abnormally distended. Endotracheal tube is in place and he is quite restless. He also has an orogastric tube in place. Heart sounds are tachycardiac but without a pericardial friction rub. Lungs have good bilateral air entry. Abdomen is soft and bowel sounds are present. His colostomy is functioning with liquid greenish stool in the bag. Extremities have no cyanosis or clubbing. He has exfoliating dermatitis on his upper extremities. Cellulitis on the left thigh area is improving. Arterial line is present in the right femoral artery. Neurologically he remains unresponsive. Today's labs show WBC count 11.8, hemoglobin 7.9 and hematocrit 25.0. Platelets 209. Blood gas from this morning showed a pH of 7.44, pCO2 of 36.8, pO2 of 91.7 and bicarbonate 25.4. Sodium 138, potassium 3.8, CO2 of 26, BUN 22 and creatinine 1.29. Glucose 237 and calcium 8.8. Phosphorus 2.0 and magnesium 2.1. PROBLEMS: 1. Oliguric acute renal failure. The patient remains almost anuric and is currently on CRRT. We will continue with the same and orders have been renewed. 2. Sepsis with septic shock. His blood pressure has improved, and he is currently not on pressors. The patient remains on broad-spectrum antibiotics. We will continue to maintain his volume status with CRRT. 3. Electrolytes. These are being managed with CRRT. His phosphorus is slightly low, which is being replaced. He is also receiving potassium and calcium replacements with CRRT as needed. His labs are being checked twice a day. 4. Respiratory failure. The patient does not seem to be significantly volume overloaded. He is only on 25% oxygen and seems to be oxygenating reasonably well. We will not try aggressive fluid removal due to risk of hypotension as he just came off the pressors. 5. Anemia. His anemia is significant and I would defer to critical care service if transfusion is needed at this point or we will wait for another day and see how he does. 6. Nutrition. The patient remains on tube feeding and his colostomy is functioning. 42 minutes of critical care time spent on bedside during which no procedures were performed. LALO
--- NOTE | 2019-07-07 17:17 | IPNPDOC ---
Date Seen The patient was seen on 07/07/19. Progress Note HISTORY OF PRESENT ILLNESS: 74-year-old male with past medical history of diabetes mellitus, hypertension, COPD, hyperthyroidism, chronic kidney disease presents to the emergency room with shaking of his arms and malaise. Patient was admitted 1 month ago for right hip fracture status post mechanical fall, presented to emergency room 1 week ago with cellulitis, was advised to be admitted by emergency room staff but patient refused to be admitted and went home. Patient has a history of signing out AMA. Patient currently reports he has had poor oral intake for the past few days, chills and fever, urinary incontinence. He denies any chest pain, nausea, vomiting, abdominal pain or diarrhea. 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 07/05/2019 Patient decompensated overnight, requiring endotracheal intubation for airway protection and vasopressors to maintain adequate blood pressure. Patient seen in the morning, sedated, moving extremities, unable to follow commands. 07/06/2019 Patient remains intubated, improving with CRRT, requiring less vasopressor support, off sedation in the morning, moving all extremities but doesn't open eyes or follow commands. 07/07/2019 Patient remains intubated and on CRRT, off pressors now, currently on sedation medication, moving all extremities but unable to open eyes or follow commands. PHYSICAL EXAMINATION: VITAL SIGNS: Please see below. GENERAL: No distress HEENT: 7.5 ET tube 25 cm at the lip NECK: Right IJ dialysis catheter CARDIOVASCULAR EXAMINATION: Tachycardic RESPIRATORY EXAMINATION: Scattered rhonchi ABDOMINAL EXAMINATION: Soft, nondistended, positive bowel sounds, ostomy with good output EXTREMITIES: Moving all extremities SKIN: Erythema with continuing NEUROLOGICAL EXAMINATION: Comfortable on mechanical ventilation LABORATORY DATA: See below. MICROBIOLOGY: Please see below. ASSESSMENT: 74-year-old male with past medical history of type please mellitus, hypertension, COPD, hypothyroidism and chronic kidney disease is admitted for septic shock and acute renal failure. PLAN: 1. Septic shock cultures negative to date, continue vancomycin and Zosyn, off vasopressors, continue stress dose steroids, intubated on mechanical ventilation, off sedation, public aid eligibility assistant following. 2. Acute on chronic kidney disease. Initially with significant metabolic acidosis and electrolyte abnormalities, improved with CRRT, continues to have minimal urine output, nephrology following. 3. Diabetes mellitus. Hold metformin, sliding still insulin every 6 hours. Continue Levemir 5 units twice a day, on tube feeds. 4. Hyperthyroidism. Continue propylthiouracil DVT prophylaxis: Heparin subcutaneous GI prophylaxis: Home PPI VS, I&O, 24H, Fishbone Vital Signs/I&O Vital Signs Date Time Temp Pulse Resp B/P (MAP) Pulse Ox O2 Delivery O2 Flow Rate FiO2 07/07/19 15:00 97.2 116 18 119/56 96 Ventilator 30 112/56 07/06/19 16:00 21.0 I&O- Last 24 Hours up to 6 AM 07/07/19 06:00 Intake Total 1976.9 ml Output Total 232 ml Balance 1744.9 ml Laboratory Data 24H LABS Laboratory Tests 2 07/06/19 18:00: Nucleated Red Blood Cells % (auto) 0.5H, Anion Gap 9, Glomerular Filtration Rate 52.0, Calcium Level 9.2, Whole Blood Ionized Calcium 4.9, Phosphorus Level 2.9#, Magnesium Level 2.4 07/06/19 18:08: Bedside Glucose (Misc Panel) 229H 07/06/19 23:24: Bedside Glucose (Misc Panel) 250H 07/07/19 04:34: Nucleated Red Blood Cells % (auto) 0.4H, Anion Gap 8, Glomerular Filtration Rate > 60.0, Calcium Level 8.6L, Whole Blood Ionized Calcium 4.7, Total Bilirubin 0.5, Aspartate Amino Transf (AST/SGOT) 19, Alanine Aminotransferase (ALT/SGPT) 22, Alkaline Phosphatase 82, Total Protein 5.2L, Albumin 2.7L, Albumin/Globulin Ratio 1.08, Random Vancomycin Level 21.1 07/07/19 04:35: Anion Gap 8, Glomerular Filtration Rate 58.1, Calcium Level 8.8, Phosphorus Level 2.0#L, Magnesium Level 2.1 07/07/19 04:36: Prothrombin Time 17.5H, Prothromb Time International Ratio 1.46 07/07/19 05:28: Blood Gas Bicarbonate Standard 25.4, Arterial Blood pH 7.449, Arterial Blood Partial Pressure CO2 36.8, Arterial Blood Partial Pressure O2 91.7, Arterial Blood Total CO2 26.1, Arterial Blood HCO3 24.9, Arterial Blood Base Excess 1.0, Arterial Blood Oxygen Saturation 97.6 07/07/19 11:55: Blood Gas Bicarbonate Standard 22.0, Arterial Blood pH 7.407, Arterial Blood Partial Pressure CO2 34.7L, Arterial Blood Partial Pressure O2 69.3L, Arterial Blood Total CO2 22.4L, Arterial Blood HCO3 21.4L, Arterial Blood Base Excess - 2.9L, Arterial Blood Oxygen Saturation 92.9L 07/07/19 12:38: Bedside Glucose (Misc Panel) 172H CBC/BMP Laboratory Tests 07/06/19 18:00 07/07/19 04:34 07/07/19 04:35 Microbiology Microbiology 07/04/19 Stool Occult Blood (IAN) - Final, Complete 07/04/19 Blood Culture - Preliminary, Resulted No Growth after 72 hours. All specime... 07/04/19 Respiratory Virus Panel (PCR) (IAN) - Final, Complete 07/04/19 Blood Culture - Preliminary, Resulted No Growth after 72 hours. All specime... SHARLA LUI MD Jul 07, 2019 17:17
[2019-07-07 18:30] LABS: HEMATOCRIT 23.7 % (42.0-52.0); HEMOGLOBIN 7.3 g/dl (13.5-17.5); MEAN CORPUSCULAR HGB CONC 30.8 g/dl (32.0-36.5); MEAN CORPUSCULAR VOLUME 97.5 fl (80.0-96.0); PLATELET COUNT, AUTOMATED 187 10^3/uL (150-450); RED BLOOD COUNT 2.43 10^6/uL (4.30-6.10); WHITE BLOOD COUNT 14.5 10^3/uL (4.0-10.0)
[2019-07-07 18:56] LABS: BLOOD UREA NITROGEN 19 MG/DL (7-18); CALCIUM LEVEL 8.7 MG/DL (8.8-10.2); CARBON DIOXIDE LEVEL 28 MEQ/L (21-32); CHLORIDE LEVEL 105 MEQ/L (98-107); CREATININE FOR GFR 1.09 MG/DL (0.70-1.30); GLOMERULAR FILTRATION RATE > 60.0 (>42); GLUCOSE, FASTING 121 MG/DL (70-100); PHOSPHORUS LEVEL 2.5 MG/DL (2.5-4.9); POTASSIUM SERUM 3.5 MEQ/L (3.5-5.1); SODIUM LEVEL 140 MEQ/L (136-145)
[2019-07-07] MEDS: KCL 20MEQ IN 100ML SWI (KRUN) 20 MEQ in IV 1 EA IV SCH ×4 (19:49→20:25)
[2019-07-07] MEDS: RAMELTEON 8 MG TAB (ROZEREM) PO SCH (20:22)
[2019-07-07] MEDS: SIMVASTATIN 20 MG TAB PO SCH (20:22)
--- NOTE | 2019-07-07 20:27 | PHACANCOPD ---
PHARMACY VANCOMYCIN DOSING Pt Demographics Demographics Patient Age:74 , Weight:95.500 , Gender: male Adjusted Body Weight Date: 07/05/19, Adjusted Body Weight: [76.8] Kg Events Past 24 Hours Events Past 24 Hours: NO: Dialysis, Diuretic Therapy, Change in CrCl, Fever, Elevation in WBC, Pending Diagnostics, Pending Procedures, Other Vancomycin Vancomycin indication: severe sepsis Vancomycin Target Ranges: 15-20 mcg/ml Vancomycin Load Y/N: Yes Load Dose Date Time Vancomycin Load Dose: 2g Date: 07/05/19 Time: 21:00 Vancomycin Dose Date: 07/07/19. Current Vancomycin Dose: [1g iv Q12H] Intermittent Dosing?: No Labs Labs Item Value Date Time White Blood Count 14.5 10^3/uL H 07/07/19 181 Glomerular Filtration Rate > 60.0 07/07/19 181 Creatinine 1.09 MG/DL 07/07/19 181 Blood Urea Nitrogen 19 MG/DL H 07/07/19 181 Vancomycin Level Trough 20.6 UG/ML H 07/07/19 1936 Vital Signs Label Value Date Time Patient Temperature 97.0 degrees F 07/07/19 1900 Temperature Source Rectal 07/07/19 1900 Micro Microbiology 07/04/19 Stool Occult Blood (IAN) - Final, Complete 07/04/19 Blood Culture - Preliminary, Resulted No Growth after 72 hours. All specime... 07/04/19 Respiratory Virus Panel (PCR) (IAN) - Final, Complete 07/04/19 Blood Culture - Preliminary, Resulted No Growth after 72 hours. All specime... Creatinine Clearance Date:07/07/19. Creatinine Clearance: [~46]. Pending Labs Trough - Assessment and Plan Maintaining Current Dose?: Yes Reason for dose change: No Dose Change Pharmacist Note Pharmacist Note Date: 07/05/19. Pharmacist note: Trough of 20.6 is acceptable. Will continue current dosing. Will continue to monitor and make adjustments as needed. HAYDEN SARKAR PHARMACY Jul 07, 2019 20:27
[2019-07-08] VITALS (31 sets, daily range): BP systolic 102–164; BP diastolic 53–99; O2SAT 97
[2019-07-08] MEDS: IPRATROPIUM 0.5MG/ALBUTEROL 2.5MG INH SOL UD 3ML (DUONEB)(J7620) NEB SCH ×4 (01:30→19:57)
[2019-07-08] MEDS: HYDROCORTISONE 100 MG/2 ML VIAL (J1720 PER 1) IV SCH ×2 (01:45→09:34)
[2019-07-08] MEDS: PIPERACILLIN/TAZOBACTAM SOD 2.25 GM in D5W MINI-BAG PLUS 50 ML IV SCH ×4 (03:12→21:56)
[2019-07-08] MEDS: propofoL 1,000 MG in IV 1 EA IV SCH (03:58)
[2019-07-08] MEDS: HEPARIN SOD (PORCINE) 5000 UNITS/ML VIAL SQ SCH ×3 (05:10→21:05)
[2019-07-08 05:26] LABS: IONIZED CALCIUM 4.8 MG/DL (4.5-5.3)
[2019-07-08 05:34] LABS: HEMATOCRIT 23.4 % (42.0-52.0); HEMOGLOBIN 7.5 g/dl (13.5-17.5); MEAN CORPUSCULAR HEMOGLOBIN 30.6 pg (27.0-33.0); MEAN CORPUSCULAR HGB CONC 32.1 g/dl (32.0-36.5); MEAN CORPUSCULAR VOLUME 95.5 fl (80.0-96.0); PLATELET COUNT, AUTOMATED 196 10^3/uL (150-450); RED BLOOD COUNT 2.45 10^6/uL (4.30-6.10); WHITE BLOOD COUNT 16.6 10^3/uL (4.0-10.0)
[2019-07-08 05:41] LABS: ABG BASE EXCESS 1.4 (-2.0-2.0); ABG HCO3 24.8 MEQ/L (22.0-26.0); ABG PARTIAL PRESSURE CO2 34.1 mmHg (35.0-45.0); ABG PARTIAL PRESSURE O2 133.2 mmHg (75.0-100.0); ABG STANDARD HCO3 25.8 MEQ/L (22.0-26.0); ABG TOTAL CO2 25.9 MEQ/L (23.0-31.0)
[2019-07-08 05:58] LABS: ALBUMIN 2.9 GM/DL (3.2-5.2); ALT/SGPT 26 U/L (12-78); BILIRUBIN,TOTAL 0.7 MG/DL (0.2-1.0); BLOOD UREA NITROGEN 16 MG/DL (7-18); CALCIUM LEVEL 8.9 MG/DL (8.8-10.2); CARBON DIOXIDE LEVEL 27 MEQ/L (21-32); CHLORIDE LEVEL 105 MEQ/L (98-107); GLOMERULAR FILTRATION RATE > 60.0 (>42); GLUCOSE, FASTING 172 MG/DL (70-100); MAGNESIUM LEVEL 2.3 MG/DL (1.8-2.4); PHOSPHORUS LEVEL 1.7 MG/DL (2.5-4.9); POTASSIUM SERUM 3.5 MEQ/L (3.5-5.1); SODIUM LEVEL 140 MEQ/L (136-145); TOTAL PROTEIN 5.5 GM/DL (6.4-8.2)
[2019-07-08] MEDS: HumaLOG INSULIN (NovoLOG) PER UNIT SC SCH ×5 (06:18→23:33)
[2019-07-08] MEDS ORDERED: KCL 20MEQ IN 100ML SWI (KRUN) 20 MEQ in IV 1 EA IV SCH ×2 (06:30)
[2019-07-08] MEDS: KCL 20MEQ IN 100ML SWI (KRUN) 20 MEQ in IV 1 EA IV SCH ×8 (06:31→22:44)
[2019-07-08] MEDS ORDERED: SODIUM PHOSPHATE INJ 30 MMOL in NS 250 ML IV ONE (08:30)
[2019-07-08] MEDS: LEVEMIR (INSULIN DETEMIR) 1 UNITS/0.01ML SC SCH ×2 (09:33→21:00)
[2019-07-08] MEDS: PANTOPRAZOLE 40MG INJ (PROTONIX) (C9113) IV SCH (09:33)
[2019-07-08] MEDS: ASPIRIN 81 MG CHEW TABLET PO SCH (09:34)
[2019-07-08] MEDS: CHLORHEXIDINE GLUCONATE 0.12 % 15ML UDC (PERIDEX ORAL RINSE) MT SCH ×2 (09:34→20:13)
[2019-07-08] MEDS: propylthiouraciL 50 MG TAB PO SCH ×2 (09:35→20:43)
[2019-07-08] MEDS: busPIRone 5 MG TAB PO SCH ×2 (09:35→20:43)
[2019-07-08] MEDS: FERROUS SULFATE 325MG TAB PO SCH ×2 (09:35→20:43)
[2019-07-08] MEDS: MAGNESIUM OXIDE 400 MG TAB (MAG-OX) PO SCH ×2 (09:35→20:43)
[2019-07-08] MEDS: VITAMIN D 1,000 INTERNATIONAL UNITS TABLET PO SCH (09:35)
[2019-07-08] MEDS: FOLIC ACID 1 MG TAB PO SCH (09:35)
[2019-07-08] MEDS ORDERED: SODIUM CHLORIDE 0.9% INJ 10 ML SYR IV PRN (10:15)
[2019-07-08] MEDS ORDERED: HEPARIN 1,000 UNITS/ML 10ML VIAL (FOR RADIOLOGY& DIALYSIS ONLY) IV PRN (10:15)
--- NOTE | 2019-07-08 10:33 | REP ---
AP PORTABLE CHEST: 07/08/2019. COMPARISON: 07/07/2019, 07/06/2019, 07/05/2019. CLINICAL HISTORY: Post intubation. FINDINGS: The right jugular central catheter, endotracheal tube, and nasogastric tubes are again seen and unchanged. The retrocardiac left lower lobe opacity representing infiltrate or atelectasis/fibrosis is again seen. There is slightly less vascular congestion than yesterday's study. Small left effusion is difficult to exclude. The right CP angle is sharply defined. Calcified tortuous aorta unchanged. Left atrial enlargement seen. Heart size unchanged. IMPRESSION: 1. Lines and tubes unchanged. 2. Retrocardiac left lower lobe atelectasis or infiltrate with some chronic interstitial changes. 3. There appears to be some decrease in vascular congestion compared to yesterday, which is superimposed on some underlying fibrosis. Electronically Signed by Zeeshan Watson MD 07/08/2019 11:02 A
[2019-07-08] MEDS: VANCOMYCIN HCL 1,000 MG, VIAL MATE ADAPTER 1 EACH in D5W 250 ML IV SCH ×2 (11:54→20:14)
--- NOTE | 2019-07-08 11:55 | CCN ---
DATE OF SERVICE: 07/08/2019 Critical care time was 48 minutes, this excludes all procedures. At bedside rounds this morning the patient is very agitated, has been on pressure support overnight tolerating this well without hypoxia. Blood pressure has been more than adequate. He is no longer in shock. In fact, he is on the hypertensive side of things. CVVH is being continued. He is quite agitated. There is some question of whether or not the medical devices or provoking some of his delirium. He has not yet responsive, but remains awake and moving all extremities. He is coughing and appears to be able to protect his own airway. Therefore a trial extubation was performed this morning despite his continued metabolic encephalopathy. Arterial line was also removed due to the fact that he is no longer hypotensive. He is anemic this morning. Primary team has ordered blood for transfusion. The patient did self injure his eyes with flailing of his arms, does not appear to have any pupillary defect. There is some scleral edema. PHYSICAL EXAMINATION: Temperature 96.8, pulse is 122, blood pressure is 144/72, oxygen saturation is 97% on 0.30 FiO2, shallow breathing index on pressure support 12/06 was 68. Respiratory rate ranges from 15-19. GENERAL: Agitated, constantly moving about the bed. HEENT: Some subconjunctival irritation, increased erythema around the eye. No pupil abnormalities. Left eye is normal with surgical pupil. Mucous membranes are moist. Tongue is midline. Neck is supple. No tracheal deviation or mass. Lymph: No cervical, supraclavicular or axillary adenopathy. Lines are in place without erythema or exudate in the right subclavian right IJ. Pulmonary: Clear to auscultation without rales, rhonchi or wheezes. No dullness to percussion. No prolongation of expiratory phase. Cardiac: Distant S1-S2 without audible murmur, rub or gallop. PMI is displaced laterally. Abdomen: Soft, nontender, nondistended with normoactive bowel sounds. No mass. There is a colostomy with yellow to green stool, mostly liquid. Extremities: No cyanosis or clubbing, edema significantly improving. Erythematous exfoliated rash improving on the arms. Neuro: No unilateral weakness, no evidence of tremor or seizure activity. Moves all extremities but clearly encephalopathic, flailing his arms and agitated. Laboratory evaluation shows a pH of 7.48, pCO2 of 34, PaO2 of 133. White blood cell count 16.6, hemoglobin 7.5, platelet count of 196. Sodium is 140, potassium 3.5, chloride is 105, bicarb of 27, BUN of 16, creatinine of 1.0, glucose of 172, phos is 1.7, albumin is 2.9. Chest x-ray shows improved infiltrate. Central lines in place with a subclavian and IJ line. Endotracheal tube is in place. There is blunting of the left costophrenic angle. IMPRESSION: 1. Respiratory failure with trial of extubation today. He is able to pass breathing parameters based on his spontaneous breathing trial. He is hemodynamically stable however, he has continued metabolic encephalopathy, which may complicate his extubation. He will require close monitoring for the need for possible reintubation. 2. Metabolic encephalopathy likely drug induced and induced due to severity of illness. Will continue monitoring limiting medications. I have discontinued his hydrocortisone as this may be provoking agitation and decreased it down to prednisone of 10 mg. 3. Hypertension. Will discontinue his arterial line. Defer to nephrology and primary team for additional antihypertensive therapy. 4. COPD on chronic steroids. As mentioned above, decreased the prednisone to 10. 5. DVT prophylaxis with heparin. 6. Gastrointestinal (GI) prophylaxis with Protonix. 7. Diabetes. Mildly hyperglycemic today. Will defer to primary team for management. Critical care time, as mentioned above. Biggest concern is his respiratory status and ability to maintain his airway with the severity of metabolic encephalopathy. He will be closely monitored in the ICU for need for reintubation. Critical care time as mentioned above, this excludes all procedures.
--- NOTE | 2019-07-08 13:41 | IPN ---
DATE: 07/08/2019 Mr. Higgins is seen this morning on his bedside. He remains unresponsive and anuric. He is still on CRRT. His ventilator has been changed to pressure support and seems to be doing well. Pulmonary is planning to extubate him later today. The patient is quite restless and no purposeful movements. He is unable to communicate at this point. PHYSICAL EXAMINATION: Temperature 96.8 degrees Fahrenheit, heart rate 122 per minute and respiratory rate 24 per minute. Blood pressure 144/72 mmHg and oxygen saturation 97%. Head is atraumatic. Neck supple and JVD is not elevated. He has an internal jugular vein dialysis catheter on the right side. Heart sounds are tachycardic and without a pericardial friction rub. Lungs have good bilateral air entry. Abdomen soft and nontender. Colostomy is functioning with liquid green stool. Neurologically, he is restless but unresponsive. Today's labs show WBC count 16.6, hemoglobin 7.5 and hematocrit 23.4. A vancomycin level this morning is 19.8. Sodium is 140, potassium 3.5, CO2 27, BUN 16 and creatinine 1.0. Glucose 172. Total protein is 5.5 and albumin 2.9. PROBLEMS: 1. Oliguric acute renal failure. The patient remains oliguric despite improvement in his blood pressure. At this point, he remains on CRRT and we will continue with the same for next 24 hours. CRRT orders are being renewed and written. 2. Respiratory failure. This is related to septic shock and volume status is well-compensated. He is expected to be extubated later today. 3. Septic shock. The patient is not on pressors at present and continues with antibiotics. He is now hemodynamically stable. 4. Anemia. His anemia has worsened and I called his healthcare proxy over the phone and received consent. The patient will be transfused 2 units of packed RBCs today. 5. Altered mentation. Most likely this is toxic and metabolic. At this point, we will continue with CRRT. He has no evidence of uremia. 36 minutes critical care time on the bed side. No procedures performed during this time. ASHLEYD
[2019-07-08 16:22] LABS: ABG BASE EXCESS 3.8 (-2.0-2.0); ABG HCO3 27.3 MEQ/L (22.0-26.0); ABG PARTIAL PRESSURE CO2 37.3 mmHg (35.0-45.0); ABG PARTIAL PRESSURE O2 66.9 mmHg (75.0-100.0); ABG STANDARD HCO3 27.8 MEQ/L (22.0-26.0); ABG TOTAL CO2 28.5 MEQ/L (23.0-31.0); ABG pH (ARTERIAL) 7.483 UNITS (7.350-7.450)
--- NOTE | 2019-07-08 16:52 | IPNPDOC ---
Date Seen The patient was seen on 07/08/19. Progress Note HISTORY OF PRESENT ILLNESS: 74-year-old male with past medical history of diabetes mellitus, hypertension, COPD, hyperthyroidism, chronic kidney disease presents to the emergency room with shaking of his arms and malaise. Patient was admitted 1 month ago for right hip fracture status post mechanical fall, presented to emergency room 1 week ago with cellulitis, was advised to be admitted by emergency room staff but patient refused to be admitted and went home. Patient has a history of signing out AMA. Patient currently reports he has had poor oral intake for the past few days, chills and fever, urinary incontinence. He denies any chest pain, nausea, vomiting, abdominal pain or diarrhea. 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 07/05/2019 Patient decompensated overnight, requiring endotracheal intubation for airway protection and vasopressors to maintain adequate blood pressure. Patient seen in the morning, sedated, moving extremities, unable to follow commands. 07/06/2019 Patient remains intubated, improving with CRRT, requiring less vasopressor support, off sedation in the morning, moving all extremities but doesn't open eyes or follow commands. 07/07/2019 Patient remains intubated and on CRRT, off pressors now, currently on sedation medication, moving all extremities but unable to open eyes or follow commands. 07/08/2019 Patient seen in the morning, intubated, on CRRT, remains off pressors, currently on sedation medication and pressure support with possible extubation later in the day. PHYSICAL EXAMINATION: VITAL SIGNS: Please see below. GENERAL: No distress HEENT: 7.5 ET tube 25 cm at the lip NECK: Right IJ dialysis catheter CARDIOVASCULAR EXAMINATION: Tachycardic RESPIRATORY EXAMINATION: Scattered rhonchi ABDOMINAL EXAMINATION: Soft, nondistended, positive bowel sounds, ostomy with good output EXTREMITIES: Moving all extremities SKIN: Erythema with continuing NEUROLOGICAL EXAMINATION: Comfortable on mechanical ventilation LABORATORY DATA: See below. MICROBIOLOGY: Please see below. ASSESSMENT: 74-year-old male with past medical history of type please mellitus, hypertension, COPD, hypothyroidism and chronic kidney disease is admitted for septic shock and acute renal failure. PLAN: 1. Septic shock cultures negative to date, continue vancomycin and Zosyn, off vasopressors, continue stress dose steroids, intubated on mechanical ventilation, off sedation, doing well on pressure support, plan for extubation later today, casing soaker following. Hemoglobin 7.5, patient scheduled to receive 2 units of packed cells today. 2. Acute on chronic kidney disease. Initially with significant metabolic acidosis and electrolyte abnormalities, improved with CRRT, continues to have low urine output, nephrology following. 3. Diabetes mellitus. Hold metformin, sliding still insulin every 6 hours. Continue Levemir 5 units twice a day, on tube feeds. 4. Hyperthyroidism. Continue propylthiouracil DVT prophylaxis: Heparin subcutaneous GI prophylaxis: PPI VS, I&O, 24H, Fishbone Vital Signs/I&O Vital Signs Date Time Temp Pulse Resp B/P (MAP) Pulse Ox O2 Delivery O2 Flow Rate FiO2 07/08/19 14:45 99.2 126 26 102/53 94 Aerosol Mask 35 07/06/19 16:00 21.0 I&O- Last 24 Hours up to 6 AM 07/08/19 06:00 Intake Total 2560 ml Output Total 494 ml Balance 2066 ml Laboratory Data 24H LABS Laboratory Tests 2 07/07/19 17:37: Bedside Glucose (Misc Panel) 115H 07/07/19 18:16: Nucleated Red Blood Cells % (auto) 0.3H, Anion Gap 7L, Glomerular Filtration Rate > 60.0, Calcium Level 8.7L, Whole Blood Ionized Calcium 4.7, Phosphorus Lev el 2.5#, Magnesium Level 2.0 07/07/19 19:36: Vancomycin Level Trough 20.6H 07/08/19 00:23: Bedside Glucose (Misc Panel) 86 07/08/19 05:11: Anion Gap 8, Glomerular Filtration Rate > 60.0, Calcium Level 8.9, Whole Blood Ionized Calcium 4.8, Phosphorus Level 1.7#L, Magnesium Level 2.3, Total Bilirubin 0.7, Aspartate Amino Transf (AST/SGOT) 26, Alanine Aminotransferase (ALT/SGPT) 26, Alkaline Phosphatase 73, Total Protein 5.5L, Albumin 2.9L, Albumin/Globulin Ratio 1.12 07/08/19 05:12: Nucleated Red Blood Cells % (auto) 0.2H 07/08/19 05:34: Blood Gas Bicarbonate Standard 25.8, Arterial Blood pH 7.480H, Arterial Blood Partial Pressure CO2 34.1L, Arterial Blood Partial Pressure O2 133.2H, Arterial Blood Total CO2 25.9, Arterial Blood HCO3 24.8, Arterial Blood Base Excess 1.4, Arterial Blood Oxygen Saturation 99.0 07/08/19 09:13: Vancomycin Level Trough 19.8 07/08/19 12:06: Bedside Glucose (Misc Panel) 95 07/08/19 16:18: Blood Gas Bicarbonate Standard 27.8H, Arterial Blood pH 7.483H, Arterial Blood Partial Pressure CO2 37.3, Arterial Blood Partial Pressure O2 66.9L, Arterial Blood Total CO2 28.5, Arterial Blood HCO3 27.3H, Arterial Blood Base Excess 3.8H, Arterial Blood Oxygen Saturation 94.0L CBC/BMP Laboratory Tests 07/07/19 18:16 07/08/19 05:11 07/08/19 05:12 Microbiology Microbiology 07/04/19 Stool Occult Blood (IAN) - Final, Complete 07/04/19 Blood Culture - Preliminary, Resulted No Growth after 72 hours. All specime... 07/04/19 Respiratory Virus Panel (PCR) (IAN) - Final, Complete 07/04/19 Blood Culture - Preliminary, Resulted No Growth after 72 hours. All specime... SHARLA LUI MD Jul 08, 2019 16:52
[2019-07-08 19:13] LABS: IONIZED CALCIUM 4.9 MG/DL (4.5-5.3)
[2019-07-08] MEDS ORDERED: POLYVINYL ALCOHOL OPHTH SOLN 15 ML(LIQUITEARS) OD PRN (19:30)
[2019-07-08 19:37] LABS: MAGNESIUM LEVEL 1.9 MG/DL (1.8-2.4); PHOSPHORUS LEVEL 2.2 MG/DL (2.5-4.9)
[2019-07-08] MEDS: MORPHINE 2 MG/ML 1ML VIAL (J2270) IV PRN (19:40)
[2019-07-08 19:59] LABS: POTASSIUM SERUM 3.5 MEQ/L (3.5-5.1)
[2019-07-08] MEDS ORDERED: MAG SULF 1GM/100ML (MAG RUN) 1 GM in IV 1 EA IV ONE (20:00)
[2019-07-08] MEDS: RAMELTEON 8 MG TAB (ROZEREM) PO SCH (20:43)
[2019-07-08] MEDS: SIMVASTATIN 20 MG TAB PO SCH (20:43)
[2019-07-08] MEDS ORDERED: NYSTATIN 500,000 U/5 ML SUSP UDC SS SCH (21:00)
[2019-07-08] MEDS ORDERED: SODIUM PHOSPHATE INJ 30 MMOL in D5W 250 ML IV ONE (21:00)
[2019-07-08 22:43] LABS: ABG BASE EXCESS -0.7 (-2.0-2.0); ABG HCO3 23.7 MEQ/L (22.0-26.0); ABG O2 SATURATION 95.3 % (95.0-99.0); ABG PARTIAL PRESSURE CO2 38.1 mmHg (35.0-45.0); ABG PARTIAL PRESSURE O2 73.2 mmHg (75.0-100.0); ABG STANDARD HCO3 23.9 MEQ/L (22.0-26.0); ABG TOTAL CO2 24.9 MEQ/L (23.0-31.0); ABG pH (ARTERIAL) 7.412 UNITS (7.350-7.450)
[2019-07-08] MEDS: NYSTATIN 500,000 U/5 ML SUSP UDC SS SCH (23:34)
[2019-07-09] VITALS (35 sets, daily range): BP systolic 113–156; BP diastolic 56–97; O2SAT 94
[2019-07-09] MEDS: MORPHINE 2 MG/ML 1ML VIAL (J2270) IV PRN (00:09)
[2019-07-09] MEDS: LACRILUBE (AKWA TEARS) OPHTH OINT 3.5 GM OD PRN (00:09)
[2019-07-09] MEDS: IPRATROPIUM 0.5MG/ALBUTEROL 2.5MG INH SOL UD 3ML (DUONEB)(J7620) NEB SCH ×4 (02:00→19:28)
[2019-07-09] MEDS: PIPERACILLIN/TAZOBACTAM SOD 2.25 GM in D5W MINI-BAG PLUS 50 ML IV SCH ×4 (03:56→21:59)
[2019-07-09] MEDS: HEPARIN SOD (PORCINE) 5000 UNITS/ML VIAL SQ SCH ×3 (05:50→21:58)
[2019-07-09] MEDS: NYSTATIN 500,000 U/5 ML SUSP UDC SS SCH ×3 (05:51→17:48)
[2019-07-09 05:58] LABS: ABG BASE EXCESS -1.3 (-2.0-2.0); ABG HCO3 22.7 MEQ/L (22.0-26.0); ABG O2 SATURATION 94.5 % (95.0-99.0); ABG PARTIAL PRESSURE CO2 35.8 mmHg (35.0-45.0); ABG PARTIAL PRESSURE O2 69.7 mmHg (75.0-100.0); ABG STANDARD HCO3 23.3 MEQ/L (22.0-26.0); ABG TOTAL CO2 23.8 MEQ/L (23.0-31.0)
[2019-07-09] MEDS: HumaLOG INSULIN (NovoLOG) PER UNIT SC SCH ×3 (06:00→17:48)
--- NOTE | 2019-07-09 06:05 | CCN ---
DATE: 07/08/2019 I was called by the nurse practitioner who was covering the patient for tachycardia and tachypnea. At the time she could tell me no clinical information about the patient as far as the reason for the underlying abnormal vital signs, but she was concerned about the possibility of needing intubation. I therefore presented to the intensive care unit (ICU) where I found the patient actually more coherent than he was this morning. He has metabolic encephalopathy, but he was actually able to speak words to me just now. This is new. His heart rate is elevated at 124. He is tachypneic at times however, his arterial blood gas showed a pH of 7.41, pCO2 of 38 and pAO2 of 73. He is on continuous veno-venous hemofiltration (CVVH) and quite agitated from his encephalopathy and I think this the reason for his clinical appearance. He is no more hypoxic than when I left him this morning. He 95% on 2 liters. He does have evidence of a hematoma on his right eye. I have ordered lubricating medication for this. Therefore I have transferred the patient over to my service due to my concern for his ongoing respiratory status and management and feel that personal calls should go to me. Overall I believe the patient is slightly better than the time of extubation this morning. Will continue close monitoring in the ICU.
[2019-07-09] MEDS: DEXTROSE 50% 50 ML SYRINGE IV PRN ×2 (06:18→12:30)
[2019-07-09 06:43] LABS: HEMOGLOBIN 10.5 g/dl (13.5-17.5); MEAN CORPUSCULAR HEMOGLOBIN 30.7 pg (27.0-33.0); MEAN CORPUSCULAR HGB CONC 32.8 g/dl (32.0-36.5); MEAN CORPUSCULAR VOLUME 93.6 fl (80.0-96.0); PLATELET COUNT, AUTOMATED 205 10^3/uL (150-450); RED BLOOD COUNT 3.42 10^6/uL (4.30-6.10); WHITE BLOOD COUNT 29.1 10^3/uL (4.0-10.0)
[2019-07-09 07:10] LABS: ALBUMIN 2.7 GM/DL (3.2-5.2); ALT/SGPT 24 U/L (12-78); BILIRUBIN,TOTAL 1.1 MG/DL (0.2-1.0); BLOOD UREA NITROGEN 9 MG/DL (7-18); CALCIUM LEVEL 8.9 MG/DL (8.8-10.2); CARBON DIOXIDE LEVEL 27 MEQ/L (21-32); CHLORIDE LEVEL 106 MEQ/L (98-107); CREATININE FOR GFR 0.85 MG/DL (0.70-1.30); GLOMERULAR FILTRATION RATE > 60.0 (>42); GLUCOSE, FASTING 142 MG/DL (70-100); PHOSPHORUS LEVEL 2.7 MG/DL (2.5-4.9); POTASSIUM SERUM 3.5 MEQ/L (3.5-5.1); SODIUM LEVEL 140 MEQ/L (136-145); TOTAL PROTEIN 5.8 GM/DL (6.4-8.2)
--- NOTE | 2019-07-09 08:00 | REP ---
Portable chest x-ray: Single view. History: Post intubation. Comparison study: July 08, 2019. Findings: The endotracheal tube and nasogastric tube have been withdrawn in the interval since the prior chest x-ray. A right internal jugular central venous catheter and a right subclavian central venous catheter remain in place with their tips in the expected location of the superior vena cava. EKG electrodes are seen. Cardiomediastinal silhouette is unremarkable and unchanged. Vascular calcifications again noted. Pulmonary vascular cephalization is noted. No new infiltrate is seen. Electronically Signed by Rodolfo Chester MD 07/09/2019 07:52 A
[2019-07-09] MEDS ORDERED: FUROSEMIDE 100 MG/10 ML VIAL (J1940) IV ONE (08:15)
[2019-07-09] MEDS: KCL 20MEQ IN 100ML SWI (KRUN) 20 MEQ in IV 1 EA IV SCH ×4 (08:49→11:58)
[2019-07-09] MEDS: predniSONE 10 MG TAB PO SCH (09:00)
[2019-07-09] MEDS: FOLIC ACID 1 MG TAB PO SCH (09:00)
[2019-07-09] MEDS: METOPROLOL TART 25 MG TABLET PO SCH ×2 (09:00→20:01)
[2019-07-09] MEDS: FERROUS SULFATE 325MG TAB PO SCH ×2 (09:00→20:01)
[2019-07-09] MEDS: busPIRone 5 MG TAB PO SCH ×2 (09:00→20:01)
[2019-07-09] MEDS: propylthiouraciL 50 MG TAB PO SCH ×2 (09:00→20:02)
[2019-07-09] MEDS: MAGNESIUM OXIDE 400 MG TAB (MAG-OX) PO SCH ×2 (09:00→20:02)
[2019-07-09] MEDS: VITAMIN D 1,000 INTERNATIONAL UNITS TABLET PO SCH (09:00)
[2019-07-09] MEDS: ASPIRIN 81 MG CHEW TABLET PO SCH (09:00)
--- NOTE | 2019-07-09 09:32 | CCN ---
DATE OF SERVICE: 07/09/2019 Mr. Higgins is seen in the intensive care unit (ICU). He was extubated yesterday and remains extubated. He is able to follow some commands today, still is somewhat confused but is able to tell me his name and that he is in the hospital. He is on room air and oxygen saturations are between 89-91%. He is afebrile. His white count is up, and he does remain on Zosyn and vancomycin. He did receive 2 units of packed red blood cells yesterday. He had he had been getting PSYCHIATRIC NURSING AIDE, which was stopped this morning by nephrology team. PHYSICAL EXAM: Vitals: Temperature is 98.9, pulse 132, respiratory rate 32, blood pressure is 123/68, pulse oximetry 89% on room air. General: The patient is alert to name and place. He does follow commands. HEENT: The patient has a right subconjunctival hemorrhage. Pupils equal and reactive. Tongue is midline. Neck: Neck is supple. No cervical lymphadenopathy. No jugular venous distention (JVD). The patient does have a right subclavian internal jugular (IJ). Pulmonary: Clear to auscultation bilaterally. Without rales, rhonchi, or wheezes. Cardiac: Tachycardiac. No obvious murmur. Abdomen: Positive bowel sounds. Soft. Nontender. No rebound or guarding. Extremities: No clubbing, cyanosis, or edema. LABS: WBC 29.1, hemoglobin 10.5, hematocrit 32.0, platelets 205. Sodium 140, potassium 3.5, chloride 106, carbon dioxide 27, BUN 9, creatinine 0.85, glucose 142, calcium 8.9, phosphorus 2.7, magnesium 2.0, total bilirubin 1.1, AST is 37, ALT is 24, alkaline phosphatase 73, total protein 5.8, albumin 2.7. ABG pH 7.42, pCO2 35.8, pO2 69.7. Chest x-ray does show a little improvement with less blunting of the left costovertebral angle (CVA). ASSESSMENT AND PLAN: 1. Respiratory failure. The patient was extubated today. He is now on room air. 2. Metabolic encephalopathy. Continue to monitor medications. 3. Tachycardia. Will initiate metoprolol 25 mg twice a day. 4. Diabetes. The patient was hypoglycemic during the night. Will discontinue his Levemir. He has sliding-scale insulin with parameters. Pulmonary team will sign off the patient for now. Medical team can reconsult pulmonary team if needed.
[2019-07-09] MEDS: PANTOPRAZOLE 40MG INJ (PROTONIX) (C9113) IV SCH (10:02)
[2019-07-09] MEDS ORDERED: METOPROLOL 5 MG/5 ML VIAL IV STA (10:13)
[2019-07-09] MEDS ORDERED: FUROSEMIDE injection 250 MG in D5W 225 ML IV SCH (13:00)
[2019-07-09] MEDS ORDERED: SODIUM CHLORIDE 0.9% INJ 10 ML SYR IV PRN (13:15)
[2019-07-09] MEDS: SODIUM CHLORIDE 0.9% INJ 10 ML SYR IV SCH ×2 (13:19→21:59)
[2019-07-09] MEDS ORDERED: VANCOMYCIN INTERMITTENT/PULSE DOSING BY CLINICAL PHARMACIST PER DOSING PROTOCOL XX SCH (13:30)
--- NOTE | 2019-07-09 15:34 | PHACANCOPD ---
PHARMACY VANCOMYCIN DOSING Pt Demographics Demographics Patient Age:74 , Weight:91.100 , Gender: male Adjusted Body Weight Date: 07/05/19, Adjusted Body Weight: [76.8] Kg Events Past 24 Hours Events Past 24 Hours: NO: Dialysis, Diuretic Therapy, Change in CrCl, Fever, Elevation in WBC, Pending Diagnostics, Pending Procedures, Other Vancomycin Vancomycin indication: severe sepsis Vancomycin Target Ranges: 15-20 mcg/ml Vancomycin Load Y/N: Yes Load Dose Date Time Vancomycin Load Dose: 2g Date: 07/05/19 Time: 21:00 Vancomycin Dose 07/09: no dose today Date: 07/07/19. Current Vancomycin Dose: [1g iv Q12H] Intermittent Dosing?: Yes Labs Labs Item Value Date Time White Blood Count 14.5 10^3/uL H 07/07/19 1816 White Blood Count 16.6 10^3/uL H 07/08/19 0512 White Blood Count 29.1 10^3/uL H 07/09/19 0621 Creatinine 1.00 MG/DL 07/08/19 0511 Creatinine 0.85 MG/DL 07/09/19 0621 Oxygen Delivery Method Nasal Cannula 07/09/19 1230 Oxygen Flow Rate 5.0 L/min 07/09/19 1230 Vital Signs Label Value Date Time Patient Temperature 99.8 degrees F 07/09/19 1200 Temperature Source Temporal 07/09/19 1200 Micro Microbiology 07/04/19 Stool Occult Blood (IAN) - Final, Complete 07/04/19 Blood Culture - Final, Complete NO GROWTH AFTER 5 DAYS 07/04/19 Respiratory Virus Panel (PCR) (IAN) - Final, Complete 07/04/19 Blood Culture - Final, Complete NO GROWTH AFTER 5 DAYS Creatinine Clearance Date:07/07/19. Creatinine Clearance: [~46]. Pending Labs Trough - Assessment and Plan Maintaining Current Dose?: No Reason for dose change: Trough too high Pharmacist Note Pharmacist Note 07/09: Patient had a trough drawn this morning that resulted in 24.9, 9 hours after last dose. His SCR is 0.85 today, down from 2.45 upon admission. Patient had a second random drawn at 1234 which resulted at 23.6. Given the patient did not clear much of the antibiotic in 6 hours, and his CRRT has been discontinued he will not receive a dose of Vancomycin today. A random was scheduled for tomorrow morning. A lasix drip has also been started today. We will continue to monitor and make adjustments as necessary. Date: 07/05/19. Pharmacist note: Trough of 20.6 is acceptable. Will continue current dosing. Will continue to monitor and make adjustments as needed. EDNA BETANCOURT [facility]ACY Jul 09, 2019 15:34
[2019-07-09] MEDS ORDERED: ACETAMINOPHEN 650 MG SUPP PR PRN (16:30)
--- NOTE | 2019-07-09 16:50 | IPNPDOC ---
Date Seen The patient was seen on 07/09/19. Progress Note HISTORY OF PRESENT ILLNESS: 74-year-old male with past medical history of diabetes mellitus, hypertension, COPD, hyperthyroidism, chronic kidney disease presents to the emergency room with shaking of his arms and malaise. Patient was admitted 1 month ago for right hip fracture status post mechanical fall, presented to emergency room 1 week ago with cellulitis, was advised to be admitted by emergency room staff but patient refused to be admitted and went home. Patient has a history of signing out AMA. Patient currently reports he has had poor oral intake for the past few days, chills and fever, urinary incontinence. He denies any chest pain, nausea, vomiting, abdominal pain or diarrhea. 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 07/05/2019 Patient decompensated overnight, requiring endotracheal intubation for airway protection and vasopressors to maintain adequate blood pressure. Patient seen in the morning, sedated, moving extremities, unable to follow commands. 07/06/2019 Patient remains intubated, improving with CRRT, requiring less vasopressor support, off sedation in the morning, moving all extremities but doesn't open eyes or follow commands. 07/07/2019 Patient remains intubated and on CRRT, off pressors now, currently on sedation medication, moving all extremities but unable to open eyes or follow commands. 07/08/2019 Patient seen in the morning, intubated, on CRRT, remains off pressors, currently on sedation medication and pressure support with possible extubation later in the day. 07/09/2019 Patient extubated yesterday, CRRT discontinued, moving all extremities, able to follow simple commands but still remains confused. PHYSICAL EXAMINATION: VITAL SIGNS: Please see below. GENERAL: No distress HEENT: Right eye with subconjunctival hemorrhage, moist mucous membranes NECK: Supple CARDIOVASCULAR EXAMINATION: Tachycardic RESPIRATORY EXAMINATION: Scattered rhonchi ABDOMINAL EXAMINATION: Soft, nondistended, positive bowel sounds, ostomy with good output EXTREMITIES: Moving all extremities SKIN: Scattered erythema NEUROLOGICAL EXAMINATION: Agitated LABORATORY DATA: See below. MICROBIOLOGY: Please see below. ASSESSMENT: 74-year-old male with past medical history of type please mellitus, hypertension, COPD, hypothyroidism and chronic kidney disease is admitted for septic shock and acute renal failure. PLAN: 1. Septic shock Source unknown, white count uptrending, possible infected [place] catheter, removed, continue vancomycin and Zosyn, no longer requiring vasopressors, stress dose steroids discontinued. 2. Acute on chronic kidney disease. Initially with significant metabolic acidosis and electrolyte abnormalities, improved with CRRT, continues to have low urine output, poor response to Lasix IV push, now on Lasix drip, nephrology following. 3. Diabetes mellitus. Hold metformin, sliding still insulin every 6 hours. Hypoglycemic in the morning, patient is no longer on tube feeds, Levemir discontinued. 4. Hyperthyroidism. Continue propylthiouracil DVT prophylaxis: Heparin subcutaneous GI prophylaxis: PPI VS, I&O, 24H, Fishbone Vital Signs/I&O Vital Signs Date Time Temp Pulse Resp B/P (MAP) Pulse Ox O2 Delivery O2 Flow Rate FiO2 07/09/19 16:30 137 122/56 (81) 97 Nasal Cannula 1.0 07/09/19 16:00 101.7 32 07/08/19 16:00 35 I&O- Last 24 Hours up to 6 AM 07/09/19 06:00 Intake Total 3177 ml Output Total 546 ml Balance 2631 ml Laboratory Data 24H LABS Laboratory Tests 2 07/08/19 17:27: Bedside Glucose (Misc Panel) 84 07/08/19 19:03: Whole Blood Ionized Calcium 4.9, Phosphorus Level 2.2#L, Magnesium Level 1.9 07/08/19 20:57: Bedside Glucose (Misc Panel) 71L 07/08/19 22:37: Blood Gas Bicarbonate Standard 23.9, Arterial Blood pH 7.412, Arterial Blood Partial Pressure CO2 38.1, Arterial Blood Partial Pressure O2 73.2L, Arterial Blood Total CO2 24.9, Arterial Blood HCO3 23.7, Arterial Blood Base Excess -0.7, Arterial Blood Oxygen Saturation 95.3 07/08/19 23:30: Bedside Glucose (Misc Panel) 70L 07/09/19 05:48: Blood Gas Bicarbonate Standard 23.3, Arterial Blood pH 7.420, Arterial Blood Partial Pressure CO2 35.8, Arterial Blood Partial Pressure O2 69.7L, Arterial Blood Total CO2 23.8, Arterial Blood HCO3 22.7, Arterial Blood Base Excess -1.3, Arterial Blood Oxygen Saturation 94.5L 07/09/19 06:13: Bedside Glucose (Misc Panel) 34*L 07/09/19 06:21: Nucleated Red Blood Cells % (auto) 0.1H, Anion Gap 7L, Glomerular Filtration Rate > 60.0, Calcium Level 8.9, Whole Blood Ionized Calcium 4.8, Phosphorus Level 2.7#, Magnesium Level 2.0, Total Bilirubin 1.1#H, Aspartate Amino Transf (AST/SGOT) 37, Alanine Aminotransferase (ALT/SGPT) 24, Alkaline Phosphatase 73, Total Protein 5.8L, Albumin 2.7L, Albumin/Globulin Ratio 0.87L, Thyroid Stimulating Hormone (TSH) 1.150, Free Thyroxine 1.30, Vancomycin Level Trough 24.9H 07/09/19 06:39: Bedside Glucose (Misc Panel) 92 07/09/19 12:27: Bedside Glucose (Misc Panel) 56L 07/09/19 12:34: Random Vancomycin Level 23.6 07/09/19 12:51: Bedside Glucose (Misc Panel) 107 CBC/BMP Laboratory Tests 07/08/19 19:03 07/09/19 06:21 Microbiology Microbiology 07/04/19 Stool Occult Blood (IAN) - Final, Complete 07/04/19 Blood Culture - Final, Complete NO GROWTH AFTER 5 DAYS 07/04/19 Respiratory Virus Panel (PCR) (IAN) - Final, Complete 07/04/19 Blood Culture - Final, Complete NO GROWTH AFTER 5 DAYS SHARLA LUI MD Jul 09, 2019 16:50
--- NOTE | 2019-07-09 17:49 | REP ---
Portable chest x-ray: Single view. History: Dyspnea. Comparison chest x-ray: July 09, 2019. Findings: Monitoring electrodes overlie the chest. A right-sided central venous catheter is seen in place. Oxygen delivery tubing is seen. No new infiltrate is seen. Heart is not enlarged. Pulmonary vasculature is cephalized. Impression: No new infiltrate seen. Right subclavian line remains in place. The right IJ line has been removed since the previous film. Electronically Signed by Rodolfo Chester MD 07/09/2019 05:41 P
[2019-07-09 18:32] LABS: CALCIUM LEVEL 8.8 MG/DL (8.8-10.2); CREATININE FOR GFR 1.29 MG/DL (0.70-1.30); GLOMERULAR FILTRATION RATE 58.1 (>42); MAGNESIUM LEVEL 1.8 MG/DL (1.8-2.4); POTASSIUM SERUM 3.9 MEQ/L (3.5-5.1)
[2019-07-09] MEDS ORDERED: MAG SULF 1GM/100ML (MAG RUN) 1 GM in IV 1 EA IV ONE (18:45)
--- NOTE | 2019-07-09 18:53 | IPN ---
DATE: 07/09/2019 Mr. Higgins is seen this morning on his bedside. He was extubated yesterday, and his mentation is slightly improved. He is still not able to communicate. His orogastric tube has also been removed. The patient is not able to swallow anything as yet. Continuous renal placement therapy (CRRT) was stopped this morning as he has been now hemodynamically stable and can be dialyzed with regular hemodialysis if needed. He is still oliguric. PHYSICAL EXAMINATION: Temperature 100 degrees Fahrenheit, heart rate 130 per minute and respiratory rate 32 per minute. Blood pressure 130s over 50s mmHg and oxygen saturation 95% on 1 liter oxygen. Head is atraumatic. Mild skin laceration on the cheek from the endotracheal tube taping without any signs of infection. Right internal jugular vein hemodialysis catheter and right subclavian triple-lumen catheter are in place. Heart sounds are tachycardiac and irregular. Lungs with bilateral rhonchi. Abdomen: Soft and nontender. His colostomy is functioning. Extremities: Without any cyanosis or clubbing. Neurologically, he is moving all his extremities and is quite restless but not able to communicate. LABORATORY DATA: WBC count 29.1, hemoglobin 10.5 and hematocrit 32.0. Sodium 140, potassium 3.5, CO2 of 27, BUN 9 and creatinine 0.85. Calcium level is 8.9. PROBLEMS: 1. Acute renal failure. The patient is still oliguric and has not responded to Lasix 100 mg given earlier. I am going to put him on a Lasix drip and hope that his urine output will improve. At this point, there is no emergent need for dialysis today as CRRT was stopped just this morning. Electrolytes are all within normal range so far. If he becomes non oliguric, hopefully we can then avoid further need for dialysis. 2. Hypoxemia. The patient has been extubated and seems to be doing well. He is still quite tachypneic and tachycardiac. We will try to diurese him as he does have some peripheral edema and probably some pulmonary vascular congestion. We will see how he responds to diuretic. 3. Tachycardia. This is mostly sinus tachycardia, probably related to infection and agitation. Hospitalist service is addressing this issue, and he can be treated with beta devendra as needed. Will try to optimize his volume status if he responds to diuretic, which will also help. 4. Hypokalemia. The patient did receive potassium supplement with CRRT; however, one dose was still pending when CRRT was stopped. He will be given one dose of 20 mEq of potassium chloride and electrolytes should be checked again this evening. 5. Sepsis. His white cell count is increasing, and he is still quite tachycardiac. I suspect that dialysis catheter could be infected as it is a temporary catheter, and we will remove it and reinsert a new catheter after 24 hours if needed. I have advised the nursing staff to remove his catheter right away. 6. Anemia. The patient was transfused two units of packed red blood cells (RBCs) and anemia has improved. At present, no other intervention is indicated.
[2019-07-09] MEDS: SIMVASTATIN 20 MG TAB PO SCH (20:02)
[2019-07-09] MEDS: RAMELTEON 8 MG TAB (ROZEREM) PO SCH (20:02)
[2019-07-10] VITALS (15 sets, daily range): BP systolic 119–147; BP diastolic 54–79
[2019-07-10] MEDS: HumaLOG INSULIN (NovoLOG) PER UNIT SC SCH ×5 (00:05→23:44)
[2019-07-10] MEDS: NYSTATIN 500,000 U/5 ML SUSP UDC SS SCH ×5 (00:05→23:43)
[2019-07-10] MEDS: IPRATROPIUM 0.5MG/ALBUTEROL 2.5MG INH SOL UD 3ML (DUONEB)(J7620) NEB SCH ×4 (01:13→19:57)
[2019-07-10] MEDS: PIPERACILLIN/TAZOBACTAM SOD 2.25 GM in D5W MINI-BAG PLUS 50 ML IV SCH (04:08)
[2019-07-10 04:21] LABS: HEMOGLOBIN 9.8 g/dl (13.5-17.5); MEAN CORPUSCULAR HEMOGLOBIN 30.5 pg (27.0-33.0); MEAN CORPUSCULAR HGB CONC 32.7 g/dl (32.0-36.5); MEAN CORPUSCULAR VOLUME 93.5 fl (80.0-96.0); PLATELET COUNT, AUTOMATED 191 10^3/uL (150-450); RED BLOOD COUNT 3.21 10^6/uL (4.30-6.10); WHITE BLOOD COUNT 22.8 10^3/uL (4.0-10.0)
[2019-07-10 04:44] LABS: ALBUMIN 2.4 GM/DL (3.2-5.2); CALCIUM LEVEL 8.5 MG/DL (8.8-10.2); CREATININE FOR GFR 1.69 MG/DL (0.70-1.30); GLOMERULAR FILTRATION RATE 42.6 (>42); POTASSIUM SERUM 3.5 MEQ/L (3.5-5.1); TOTAL PROTEIN 5.5 GM/DL (6.4-8.2)
--- NOTE | 2019-07-10 05:03 | PHACANCOPD ---
PHARMACY VANCOMYCIN DOSING Pt Demographics Demographics Patient Age:74 , Weight:91.100 , Gender: male Adjusted Body Weight Date: 07/05/19, Adjusted Body Weight: [76.8] Kg Events Past 24 Hours Events Past 24 Hours: NO: Dialysis, Diuretic Therapy, Change in CrCl, Fever, Elevation in WBC, Pending Diagnostics, Pending Procedures, Other Vancomycin Vancomycin indication: severe sepsis Vancomycin Target Ranges: 15-20 mcg/ml Vancomycin Load Y/N: Yes Load Dose Date Time Vancomycin Load Dose: 2g Date: 07/05/19 Time: 21:00 Vancomycin Dose 07/09: no dose today Date: 07/07/19. Current Vancomycin Dose: [1g iv Q12H] Intermittent Dosing?: Yes Labs Labs Item Value Date Time Vancomycin Level Trough 24.9 UG/ML H 07/09/19 0621 Random Vancomycin Level 23.6 UG/ML 07/09/19 1234 Random Vancomycin Level 21.0 UG/ML 07/10/19 0408 Creatinine 0.85 MG/DL 07/09/19 0621 Creatinine 1.29 MG/DL # 07/09/19 1749 Creatinine 1.69 MG/DL H 07/10/19 0408 Micro Microbiology 07/09/19 Blood Culture, Received Pending 07/09/19 Blood Culture, Received Pending 07/09/19 Urine Culture, Received Pending 07/09/19 Gastrointestinal Tract Panel (PCR) - Final, Complete 07/04/19 Stool Occult Blood (IAN) - Final, Complete 07/04/19 Blood Culture - Final, Complete NO GROWTH AFTER 5 DAYS 07/04/19 Respiratory Virus Panel (PCR) (IAN) - Final, Complete 07/04/19 Blood Culture - Final, Complete NO GROWTH AFTER 5 DAYS Creatinine Clearance Date:07/10/19. Creatinine Clearance: [35ml/min]. Date:07/07/19. Creatinine Clearance: [~46]. Pending Labs vancomycin random level -11 @0600 Assessment and Plan Maintaining Current Dose?: Yes Reason for dose change: No Dose Change Pharmacist Note Pharmacist Note Date: 07/10/19. Pharmacist note:The AM vancomycin level returned at 21mcg/ml. SCR is increased to 1.69mg/dl today. Dosing will be held today. A vancomycin level is scheduled for 07/11 AM we will continue to monitor and adjust the dose as needed. 07/09: Patient had a trough drawn this morning that resulted in 24.9, 9 hours after last dose. His SCR is 0.85 today, down from 2.45 upon admission. Patient had a second random drawn at 1234 which resulted at 23.6. Given the patient did not clear much of the antibiotic in 6 hours, and his CRRT has been discontinued he will not receive a dose of Vancomycin today. A random was scheduled for tomorrow morning. A lasix drip has also been started today. We will continue to monitor and make adjustments as necessary. Date: 07/05/19. Pharmacist note: Trough of 20.6 is acceptable. Will continue current dosing. Will continue to monitor and make adjustments as needed. RENETTA BARRON [facility] Jul 10, 2019 05:03
[2019-07-10] MEDS: SODIUM CHLORIDE 0.9% INJ 10 ML SYR IV SCH ×2 (06:04→14:00)
[2019-07-10] MEDS: HEPARIN SOD (PORCINE) 5000 UNITS/ML VIAL SQ SCH ×3 (06:05→21:35)
[2019-07-10 06:36] LABS: ABG BASE EXCESS -2.2 (-2.0-2.0); ABG HCO3 20.3 MEQ/L (22.0-26.0); ABG O2 SATURATION 97.4 % (95.0-99.0); ABG PARTIAL PRESSURE CO2 27.8 mmHg (35.0-45.0); ABG PARTIAL PRESSURE O2 90.1 mmHg (75.0-100.0); ABG STANDARD HCO3 22.6 MEQ/L (22.0-26.0); ABG TOTAL CO2 21.2 MEQ/L (23.0-31.0); ABG pH (ARTERIAL) 7.482 UNITS (7.350-7.450)
--- NOTE | 2019-07-10 08:22 | REP ---
Portable chest x-ray: Single view. History: Post intubation. Comparison study: July 09, 2019. Findings: Oxygen delivery tubing and EKG electrodes are seen. No endotracheal tube is present. A right subclavian line terminates in the expected location of the SVC as before. There is linear plate-like atelectasis in the left base laterally. Lung valdez are otherwise clear. Heart is not unchanged. Electronically Signed by Rodolfo Chester MD 07/10/2019 08:13 A
[2019-07-10] MEDS ORDERED: MEROPENEM INJ 500 MG in IV 1 EA IV SCH (08:45)
[2019-07-10] MEDS: FOLIC ACID 1 MG TAB PO SCH (09:00)
[2019-07-10] MEDS: MAGNESIUM OXIDE 400 MG TAB (MAG-OX) PO SCH ×2 (09:00→21:00)
[2019-07-10] MEDS: METOPROLOL TART 25 MG TABLET PO SCH ×2 (09:00→21:00)
[2019-07-10] MEDS: busPIRone 5 MG TAB PO SCH ×2 (09:00→21:00)
[2019-07-10] MEDS: ASPIRIN 81 MG CHEW TABLET PO SCH (09:00)
[2019-07-10] MEDS: predniSONE 10 MG TAB PO SCH (09:00)
[2019-07-10] MEDS: VITAMIN D 1,000 INTERNATIONAL UNITS TABLET PO SCH (09:00)
[2019-07-10] MEDS: FERROUS SULFATE 325MG TAB PO SCH ×2 (09:00→21:00)
[2019-07-10] MEDS: propylthiouraciL 50 MG TAB PO SCH ×2 (09:00→21:00)
[2019-07-10] MEDS: MEROPENEM INJ 1 GM in IV 1 EA IV SCH ×2 (09:47→21:35)
[2019-07-10] MEDS: PANTOPRAZOLE 40MG INJ (PROTONIX) (C9113) IV SCH (09:47)
[2019-07-10] MEDS: KCL 20MEQ IN 100ML SWI (KRUN) 20 MEQ in IV 1 EA IV SCH ×4 (10:25→11:27)
[2019-07-10] MEDS ORDERED: METOPROLOL 5 MG/5 ML VIAL IV PRN (11:45)
--- NOTE | 2019-07-10 17:04 | IPNPDOC ---
Date Seen The patient was seen on 07/10/19. Progress Note HISTORY OF PRESENT ILLNESS: 74-year-old male with past medical history of diabetes mellitus, hypertension, COPD, hyperthyroidism, chronic kidney disease presents to the emergency room with shaking of his arms and malaise. Patient was admitted 1 month ago for right hip fracture status post mechanical fall, presented to emergency room 1 week ago with cellulitis, was advised to be admitted by emergency room staff but patient refused to be admitted and went home. Patient has a history of signing out AMA. Patient currently reports he has had poor oral intake for the past few days, chills and fever, urinary incontinence. He denies any chest pain, nausea, vomiting, abdominal pain or diarrhea. 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 07/05/2019 Patient decompensated overnight, requiring endotracheal intubation for airway protection and vasopressors to maintain adequate blood pressure. Patient seen in the morning, sedated, moving extremities, unable to follow commands. 07/06/2019 Patient remains intubated, improving with CRRT, requiring less vasopressor support, off sedation in the morning, moving all extremities but doesn't open eyes or follow commands. 07/07/2019 Patient remains intubated and on CRRT, off pressors now, currently on sedation medication, moving all extremities but unable to open eyes or follow commands. 07/08/2019 Patient seen in the morning, intubated, on CRRT, remains off pressors, currently on sedation medication and pressure support with possible extubation later in the day. 07/09/2019 Patient extubated yesterday, CRRT discontinued, moving all extremities, able to follow simple commands but still remains confused. 07/10/2019 Patient has improved mentation today, able to have a discussion, following commands, still not at baseline. PHYSICAL EXAMINATION: VITAL SIGNS: Please see below. GENERAL: No distress HEENT: Right eye with subconjunctival hemorrhage, moist mucous membranes NECK: Supple CARDIOVASCULAR EXAMINATION: Tachycardic RESPIRATORY EXAMINATION: Scattered rhonchi ABDOMINAL EXAMINATION: Soft, nondistended, positive bowel sounds, ostomy with good output EXTREMITIES: Moving all extremities SKIN: Scattered erythema NEUROLOGICAL EXAMINATION: Agitated LABORATORY DATA: See below. MICROBIOLOGY: Please see below. ASSESSMENT: 74-year-old male with past medical history of type please mellitus, hypertension, COPD, hypothyroidism and chronic kidney disease is admitted for septic shock and acute renal failure. PLAN: 1. Septic shock Source unknown, white count slightly improved today, possible infected [place] catheter/right subclavian triple-lumen catheter, both removed, continue vancomycin, Zosyn, switched to Merrem, urine growing yeast, fluconazole started. Patient failed swallow eval, started D5NS at 50 miles per hour for now, will reassess tomorrow. 2. Acute on chronic kidney disease. Initially with significant metabolic acidosis and electrolyte abnormalities, improved with CRRT, CRRT discontinued 2 days ago, urine output improving, Lasix drip has been held since last night, nephrology following. 3. Diabetes mellitus. Hold metformin, sliding still insulin every 6 hours. 4. Hyperthyroidism. Continue propylthiouracil DVT prophylaxis: Heparin subcutaneous GI prophylaxis: PPI VS, I&O, 24H, Fishbone Vital Signs/I&O Vital Signs Date Time Temp Pulse Resp B/P (MAP) Pulse Ox O2 Delivery O2 Flow Rate FiO2 07/10/19 16:00 1.0 07/10/19 16:00 99.2 73 36 147/65 (94) 93 Nasal Cannula 07/08/19 16:00 35 I&O- Last 24 Hours up to 6 AM 07/10/19 06:00 Intake Total 683 ml Output Total 1292 ml Balance -609 ml Laboratory Data 24H LABS Laboratory Tests 2 07/09/19 17:47: Bedside Glucose (Misc Panel) 88 07/09/19 17:49: Anion Gap 10, Glomerular Filtration Rate 58.1, Calcium Level 8.8, Magnesium Level 1.8 07/09/19 18:18: Urine Color YELLOW, Urine Appearance CLOUDYH, Urine pH 5.0, Urine Specific Casey 1.010, Urine Protein 2+H, Urine Glucose (UA) NEGATIVE, Urine Ketones TRACEH, Urine Blood 3+H, Urine Nitrite NEGATIVE, Urine Bilirubin NEGATIVE, Urine Urobilinogen 0.2, Urine Leukocyte Esterase 3+H, Urine WBC (Auto) TNTCH, Urine RBC (Auto) TNTCH, Urine Hyaline Casts (Auto) 0, Urine Bacteria (Auto) NEGATIVE, Urine Squamous Epithelial Cells 2, Urine Yeast-Like Cells (Auto) LARGEH, Urine Sperm (Auto) 07/09/19 23:58: Bedside Glucose (Misc Panel) 131H 07/10/19 04:08: Nucleated Red Blood Cells % (auto) 0.0, Anion Gap 11, Glomerular Filtration Rate 42.6, Calcium Level 8.5L, Total Bilirubin 1.0, Aspartate Amino Transf (AST/SGOT) 25, Alanine Aminotransferase (ALT/SGPT) 21, Alkaline Phosphatase 82, Total Protein 5.5L, Albumin 2.4L, Albumin/Globulin Ratio 0.77L, Random Vancomycin Level 21.0 07/10/19 06:28: Blood Gas Bicarbonate Standard 22.6, Arterial Blood pH 7.482H, Arterial Blood Partial Pressure CO2 27.8L, Arterial Blood Partial Pressure O2 90.1, Arterial Blood Total CO2 21.2L, Arterial Blood HCO3 20.3L, Arterial Blood Base Excess - 2.2L, Arterial Blood Oxygen Saturation 97.4 07/10/19 11:29: Bedside Glucose (Misc Panel) 143H CBC/BMP Laboratory Tests 07/09/19 17:49 07/10/19 04:08 Microbiology Microbiology 07/09/19 Blood Culture, Received Pending 07/09/19 Blood Culture, Received Pending 07/09/19 Urine Culture - Final, Complete Yeast Like Organism 07/09/19 Gastrointestinal Tract Panel (PCR) - Final, Complete 07/04/19 Stool Occult Blood (IAN) - Final, Complete 07/04/19 Blood Culture - Final, Complete NO GROWTH AFTER 5 DAYS 07/04/19 Respiratory Virus Panel (PCR) (IAN) - Final, Complete 07/04/19 Blood Culture - Final, Complete NO GROWTH AFTER 5 DAYS SHARLA LUI MD Jul 10, 2019 17:04
[2019-07-10] MEDS: D5W/0.9% SODIUM CHLORIDE 1,000 ML IV SCH (17:16)
[2019-07-10] MEDS: FLUCONAZOLE 200 MG in IV 1 EA IV SCH (18:10)
--- NOTE | 2019-07-10 18:36 | IPN ---
DATE: 07/10/2019 Mr. Higgins is seen this morning on his bedside. He is slightly better but still not fully alert. Nursing staff reports that he is not able to swallow. He has been tachycardiac and IV Lasix drip has been stopped. PHYSICAL EXAMINATION: Temperature 99.3 degrees Fahrenheit, heart rate 134 per minute and respiratory rate 32 per minute. Blood pressure 130/65 mmHg and oxygen saturation 96% on 1 liter oxygen. His head is atraumatic. Minor skin lacerations on his cheeks from endotracheal tube taping is without any signs of infection. Neck veins are difficult to be assessed. Heart: Sounds are tachycardiac and lungs have bilateral rhonchi. Abdomen: Soft and nontender and his colostomy is functioning. Extremities: Without any cyanosis or clubbing. LABS: Today's labs show WBC count 22.8, hemoglobin 9.8 and hematocrit 30. Platelets 191. Sodium 144, potassium 3.5, CO2 24, BUN 19 and creatinine 1.69. Glucose 113 and calcium 8.5. PROBLEMS: 1. Acute renal failure. The patient is non oliguric now and still making urine even though Lasix drip has been stopped. At this point there is no emergent indication for dialysis as his volume status is reasonable and electrolytes are within normal range. His dialysis catheter has already been removed. 2. Altered mentation most likely related to sepsis and toxic metabolic encephalopathy. He is certainly not uremic. Gradually his mentation is improving. The patient remains on antibiotics including meropenem, fluconazole and vancomycin which has been now stopped. 3. Respiratory failure. The patient has been successfully extubated and doing well. His volume status seems reasonably well-compensated. 4. Nutrition. Currently he is not receiving any nutrition and unable to swallow. I recommend to start D5 normal saline at about 50 per hour until a decision about feeding via nasogastric tube or following swallow evaluation is started.
[2019-07-10] MEDS: SIMVASTATIN 20 MG TAB PO SCH (21:00)
[2019-07-10] MEDS: RAMELTEON 8 MG TAB (ROZEREM) PO SCH (21:00)
[2019-07-11] VITALS (12 sets, daily range): BP systolic 126–154; BP diastolic 58–72
[2019-07-11] MEDS: IPRATROPIUM 0.5MG/ALBUTEROL 2.5MG INH SOL UD 3ML (DUONEB)(J7620) NEB SCH ×4 (02:53→20:22)
[2019-07-11 05:19] LABS: HEMATOCRIT 31.1 % (42.0-52.0); HEMOGLOBIN 9.6 g/dl (13.5-17.5); MEAN CORPUSCULAR HEMOGLOBIN 29.6 pg (27.0-33.0); MEAN CORPUSCULAR HGB CONC 30.9 g/dl (32.0-36.5); PLATELET COUNT, AUTOMATED 233 10^3/uL (150-450); RED BLOOD COUNT 3.24 10^6/uL (4.30-6.10); WHITE BLOOD COUNT 18.5 10^3/uL (4.0-10.0)
[2019-07-11] MEDS: NYSTATIN 500,000 U/5 ML SUSP UDC SS SCH ×3 (05:32→17:42)
[2019-07-11] MEDS: HumaLOG INSULIN (NovoLOG) PER UNIT SC SCH ×3 (05:33→17:43)
[2019-07-11] MEDS: HEPARIN SOD (PORCINE) 5000 UNITS/ML VIAL SQ SCH ×3 (05:33→22:02)
[2019-07-11 05:49] LABS: CALCIUM LEVEL 8.4 MG/DL (8.8-10.2); CREATININE FOR GFR 1.97 MG/DL (0.70-1.30); GLOMERULAR FILTRATION RATE 35.7 (>42); MAGNESIUM LEVEL 1.9 MG/DL (1.8-2.4); PHOSPHORUS LEVEL 3.5 MG/DL (2.5-4.9); POTASSIUM SERUM 3.3 MEQ/L (3.5-5.1)
--- NOTE | 2019-07-11 06:26 | PHACANCOPD ---
PHARMACY VANCOMYCIN DOSING Pt Demographics Demographics Patient Age:74 , Weight:86.400 , Gender: male Adjusted Body Weight Date: 07/05/19, Adjusted Body Weight: [76.8] Kg Events Past 24 Hours Events Past 24 Hours: NO: Dialysis, Diuretic Therapy, Change in CrCl, Fever, Elevation in WBC, Pending Diagnostics, Pending Procedures, Other Vancomycin Vancomycin indication: severe sepsis Vancomycin Target Ranges: 15-20 mcg/ml Vancomycin Load Y/N: Yes Load Dose Date Time Vancomycin Load Dose: 2g Date: 07/05/19 Time: 21:00 Vancomycin Dose Date: 07/11/19. Current Vancomycin Dose: [500MG ONCE] 07/09: no dose today Date: 07/07/19. Current Vancomycin Dose: [1g iv Q12H] Intermittent Dosing?: Yes Labs Labs Item Value Date Time Creatinine 1.29 MG/DL # 07/09/19 1749 Creatinine 1.69 MG/DL H 07/10/19 0408 Creatinine 1.97 MG/DL H 07/11/19 0502 Random Vancomycin Level 23.6 UG/ML 07/09/19 1234 Random Vancomycin Level 21.0 UG/ML 07/10/19 0408 Random Vancomycin Level 15.0 UG/ML 07/11/19 0502 White Blood Count 29.1 10^3/uL H 07/09/19 0621 White Blood Count 22.8 10^3/uL H 07/10/19 0408 White Blood Count 18.5 10^3/uL H 07/11/19 0502 Micro Microbiology 07/09/19 Blood Culture - Preliminary, Resulted No growth after 24 hours . All specim... 07/09/19 Blood Culture - Preliminary, Resulted No growth after 24 hours . All specim... 07/09/19 Urine Culture - Final, Complete Yeast Like Organism 07/09/19 Gastrointestinal Tract Panel (PCR) - Final, Complete 07/04/19 Stool Occult Blood (IAN) - Final, Complete 07/04/19 Blood Culture - Final, Complete NO GROWTH AFTER 5 DAYS 07/04/19 Respiratory Virus Panel (PCR) (IAN) - Final, Complete 07/04/19 Blood Culture - Final, Complete NO GROWTH AFTER 5 DAYS Creatinine Clearance Date:07/10/19. Creatinine Clearance: [35ml/min]. Date:07/07/19. Creatinine Clearance: [~46]. Pending Labs vancomycin random level 12-12 @0600 Assessment and Plan Maintaining Current Dose?: No Reason for dose change: No Dose Change Pharmacist Note Pharmacist Note Date: 07/11/19. Pharmacist note: Pt vancomycin level came back this AM at 15mcg/ml. The patient will receive 500mg IV once today at 08:00. Another level is scheduled for tomorrow am. We will continue to monitor and adjust the dose as needed. Date: 07/10/19. Pharmacist note:The AM vancomycin level returned at 21mcg/ml. SCR is increased to 1.69mg/dl today. Dosing will be held today. A vancomycin level is scheduled for 07/11 AM we will continue to monitor and adjust the dose as needed. 07/09: Patient had a trough drawn this morning that resulted in 24.9, 9 hours after last dose. His SCR is 0.85 today, down from 2.45 upon admission. Patient had a second random drawn at 1234 which resulted at 23.6. Given the patient did not clear much of the antibiotic in 6 hours, and his CRRT has been d iscontinued he will not receive a dose of Vancomycin today. A random was scheduled for tomorrow morning. A lasix drip has also been started today. We will continue to monitor and make adjustments as necessary. Date: 07/05/19. Pharmacist note: Trough of 20.6 is acceptable. Will continue current dosing. Will continue to monitor and make adjustments as needed. RENETTA [facility]ON [facility] Jul 11, 2019 06:26
[2019-07-11] MEDS ORDERED: VANCOMYCIN HCL 500 MG in D5W MINI-BAG PLUS 100 ML IV ONE (08:00)
[2019-07-11] MEDS: PANTOPRAZOLE 40MG INJ (PROTONIX) (C9113) IV SCH (08:40)
[2019-07-11] MEDS: FERROUS SULFATE 325MG TAB PO SCH ×2 (09:00→19:41)
[2019-07-11] MEDS: busPIRone 5 MG TAB PO SCH ×2 (09:00→19:41)
[2019-07-11] MEDS: VITAMIN D 1,000 INTERNATIONAL UNITS TABLET PO SCH (09:00)
[2019-07-11] MEDS: ASPIRIN 81 MG CHEW TABLET PO SCH (09:00)
[2019-07-11] MEDS: FOLIC ACID 1 MG TAB PO SCH (09:00)
[2019-07-11] MEDS: MAGNESIUM OXIDE 400 MG TAB (MAG-OX) PO SCH ×2 (09:00→19:41)
[2019-07-11] MEDS: propylthiouraciL 50 MG TAB PO SCH ×2 (09:00→19:41)
[2019-07-11] MEDS: predniSONE 10 MG TAB PO SCH (09:00)
[2019-07-11] MEDS: METOPROLOL TART 25 MG TABLET PO SCH ×2 (09:00→19:41)
[2019-07-11] MEDS: MEROPENEM INJ 1 GM in IV 1 EA IV SCH ×2 (10:14→22:02)
--- NOTE | 2019-07-11 11:42 | IPNPDOC ---
Subjective Date Seen The patient was seen on 07/11/19. Subjective Chief Complaint/HPI Patient looks comfortable, in no apparent distress General: Reports: ROS Unobtainable Objective Physical Examination Chest Exam: Positive: Clear to auscultation, Normal air movement Heart Exam: Positive: Rate Normal, Normal S1, Normal S2 Abdomen Exam: Positive: Normal bowel sounds, Soft, Tenderness Assessment /Plan Problems (1) Septic shock Problem Text: Septic shock Source unknown, white count slightly improved today, possible infected [place] catheter/right subclavian triple-lumen catheter, both removed, continue vancomycin, Zosyn, switched to Merrem, urine growing yeast, fluconazole started. Patient failed patient failed swallow well started on D5W Will get a PICC line and possibly start TPN for nutrition Continue present meds (2) HTN (hypertension) Status: Chronic Problem Text: Under control New present meds (3) IRMA (acute kidney injury) Status: Acute Problem Text: Acute on chronic kidney disease. Initially with significant metabolic acidosis and electrolyte abnormalities, improved with CRRT, CRRT discontinued 2 days ago, urine output improving, Lasix drip has been held since last night, nephrology following. (4) Diabetes mellitus Status: Chronic Problem Text: Diabetes mellitus. old metformin, sliding still insulin every 6 hours. Plan/VTE VTE Prophylaxis Ordered?: Yes VS, I&O, 24H, [facility] Vital Signs/I&O Vital Signs Date Time Temp Pulse Resp B/P (MAP) Pulse Ox O2 Delivery O2 Flow Rate FiO2 07/11/19 10:00 128 26 154/65 (93) 94 Room Air 07/11/19 08:00 99.4 07/11/19 05:01 1.0 07/08/19 16:00 35 I&O- Last 24 Hours up to 6 AM 07/11/19 06:00 Intake Total 900 ml Output Total 1360 ml Balance -460 ml Laboratory Data 24H LABS Laboratory Tests 2 07/10/19 17:41: Bedside Glucose (Misc Panel) 146H 07/10/19 23:39: Bedside Glucose (Misc Panel) 189H 07/11/19 05:02: Nucleated Red Blood Cells % (auto) 0.0, Anion Gap 13, Glomerular Filtration Rate 35.7L, Calcium Level 8.4L, Phosphorus Level 3.5#, Magnesium Level 1.9, Random Vancomycin Level 15.0 07/11/19 05:28: Bedside Glucose (Misc Panel) 213H CBC/BMP Laboratory Tests 07/11/19 05:02 Microbiology Microbiology 07/09/19 Blood Culture - Preliminary, Resulted No growth after 24 hours . All specim... 07/09/19 Blood Culture - Preliminary, Resulted No growth after 24 hours . All specim... 07/09/19 Urine Culture - Final, Complete Yeast Like Organism 07/09/19 Gastrointestinal Tract Panel (PCR) - Final, Complete 07/04/19 Stool Occult Blood (IAN) - Final, Complete 07/04/19 Blood Culture - Final, Complete NO GROWTH AFTER 5 DAYS 07/04/19 Respiratory Virus Panel (PCR) (IAN) - Final, Complete 07/04/19 Blood Culture - Final, Complete NO GROWTH AFTER 5 DAYS SO MORALES MD Jul 11, 2019 11:42
[2019-07-11] MEDS: D5W/0.9% SODIUM CHLORIDE 1,000 ML IV SCH (15:23)
[2019-07-11] MEDS: KCL 10MEQ/100ML SWI (KRUN) 10 MEQ in IV 1 EA IV SCH ×2 (16:49→17:43)
[2019-07-11] MEDS: FLUCONAZOLE 200 MG in IV 1 EA IV SCH (18:50)
[2019-07-11] MEDS: SIMVASTATIN 20 MG TAB PO SCH (19:42)
[2019-07-11] MEDS: RAMELTEON 8 MG TAB (ROZEREM) PO SCH (19:42)
--- NOTE | 2019-07-11 20:57 | IPN ---
DATE: 07/11/2019 Mr. Higgins is seen this morning on his bedside. He is sitting in the stretcher chair today. He is much more alert and able to answer questions though difficult to understand. He failed his swallowing evaluation. She has been receiving IV fluid at 50 mL per hour since yesterday. He has a Davila catheter which is draining clear urine and colostomy. PHYSICAL EXAMINATION Temperature 99.4 degrees Fahrenheit, heart rate 122 per minute and respiratory rate 28 per minute. Blood pressure 141/65 mmHg and oxygen saturation 98% on room air. Intake and output records from yesterday showed total intake 723 and output 1575 mL. Neck veins are difficult to be assessed. His oral cavity has large ulcers with scabs. Heart: Sounds are quite tachycardiac and lungs with bilateral rhonchi. Abdomen: Soft and bowel sounds are present. Colostomy is functioning. Extremities: Without any cyanosis or clubbing. Neurologically he has improved significantly. LABS: Today's labs show WBC count down to 18.5, hemoglobin 9.5 and hematocrit 31. Platelets 233. Sodium 149, potassium 3.3, CO2 21, BUN 27 and creatinine 1.97. Glucose 233 and calcium 8.4. PROBLEMS: 1. Acute renal failure. The patient is currently nonoliguric. He did have slight increase in BUN and creatinine over last 24 hours. At present there is no emergent need for dialysis and we will continue to monitor. He is probably in negative fluid balance which could be an explanation for his increased BUN and creatinine. The patient has been n.p.o. and he is not able to swallow. He is currently receiving only 50 mL per hour of IV fluid. I am going to increase his IV fluid. We should also consider TPN as the patient has not received any nutrition for several days. 2. Sepsis. The patient is afebrile and his leukocytosis is improving. He has been on vancomycin and meropenem. I have suggested to consider stopping vancomycin. Central lines have already been removed. He has recovery of acute renal failure and I feel that vancomycin could cause nephrotoxicity and delay in improvement of his kidney function. He does not seem to have any positive blood culture requiring use of vancomycin. 3. Hypokalemia due to poor oral intake. The patient has been n.p.o. and not receiving any TPN. He is currently receiving just IV D5 and normal saline. He has received potassium supplement today and electrolytes should be checked again tomorrow morning. 4. Hypernatremia related to IV fluids and lack of oral intake. I am increasing his IV fluid to 75 mL per hour. Electrolytes will be checked again tomorrow and if his hypernatremia persists then we can consider switching him to half-normal saline. 5. Anemia. At present his anemia is unchanged and does not need any urgent intervention.
[2019-07-12] MEDS: HumaLOG INSULIN (NovoLOG) PER UNIT SC SCH ×5 (00:38→23:35)
[2019-07-12] MEDS: NYSTATIN 500,000 U/5 ML SUSP UDC SS SCH ×5 (00:38→23:35)
[2019-07-12] MEDS: IPRATROPIUM 0.5MG/ALBUTEROL 2.5MG INH SOL UD 3ML (DUONEB)(J7620) NEB SCH ×4 (02:49→19:42)
[2019-07-12 04:00] VITALS: BP 156/73
[2019-07-12 05:10] LABS: BASO % 0.1 % (0.0-1.0); EOS # 0.2 10^3/uL (0.0-0.5); EOS % 1.7 % (0.0-3.0); HEMATOCRIT 32.6 % (42.0-52.0); LYMPH % 7.1 % (24.0-44.0); MEAN CORPUSCULAR HEMOGLOBIN 29.2 pg (27.0-33.0); MEAN CORPUSCULAR HGB CONC 30.7 g/dl (32.0-36.5); MONO # 1.6 10^3/uL (0.0-0.8); MONO % 11.6 % (0.0-5.0); NEUTROPHILS # 10.8 10^3/uL (1.5-8.5); NEUTROPHILS % 78.8 % (36.0-66.0); PLATELET COUNT, AUTOMATED 245 10^3/uL (150-450); RED BLOOD COUNT 3.43 10^6/uL (4.30-6.10); WHITE BLOOD COUNT 13.7 10^3/uL (4.0-10.0)
[2019-07-12 05:32] LABS: ALBUMIN 2.2 GM/DL (3.2-5.2); BILIRUBIN,TOTAL 0.9 MG/DL (0.2-1.0); CALCIUM LEVEL 8.5 MG/DL (8.8-10.2); CREATININE FOR GFR 1.69 MG/DL (0.70-1.30); GLOMERULAR FILTRATION RATE 42.6 (>42); POTASSIUM SERUM 3.2 MEQ/L (3.5-5.1); TOTAL PROTEIN 5.6 GM/DL (6.4-8.2)
[2019-07-12] MEDS: HEPARIN SOD (PORCINE) 5000 UNITS/ML VIAL SQ SCH ×3 (06:11→21:21)
[2019-07-12 08:00] VITALS: BP 154/69
[2019-07-12] MEDS: predniSONE 10 MG TAB PO SCH (09:00)
[2019-07-12] MEDS: FERROUS SULFATE 325MG TAB PO SCH (09:00)
[2019-07-12] MEDS ORDERED: KCL 20MEQ IN D5/0.45NS 1000ML 1,000 ML IV SCH (09:00)
[2019-07-12] MEDS: ASPIRIN 81 MG CHEW TABLET PO SCH (09:00)
[2019-07-12] MEDS: FOLIC ACID 1 MG TAB PO SCH (09:00)
[2019-07-12] MEDS: propylthiouraciL 50 MG TAB PO SCH (09:00)
[2019-07-12] MEDS: busPIRone 5 MG TAB PO SCH (09:00)
[2019-07-12] MEDS: MAGNESIUM OXIDE 400 MG TAB (MAG-OX) PO SCH (09:00)
[2019-07-12] MEDS: VITAMIN D 1,000 INTERNATIONAL UNITS TABLET PO SCH (09:00)
[2019-07-12] MEDS ORDERED: KCL 10MEQ/100ML SWI (KRUN) 10 MEQ in IV 1 EA IV ONE ×2 (09:00→10:00)
[2019-07-12] MEDS: METOPROLOL TART 25 MG TABLET PO SCH (09:00)
[2019-07-12] MEDS: PANTOPRAZOLE 40MG INJ (PROTONIX) (C9113) IV SCH (09:30)
[2019-07-12] MEDS ORDERED: LIDOCAINE 1% MDV 20ML VIAL As Ordered ONE (10:27)
--- NOTE | 2019-07-12 11:11 | IPNPDOC ---
Subjective Date Seen The patient was seen on 07/12/19. Subjective Chief Complaint/HPI Patient is more alert, awake today. This failed the swallow eval again, but there is some improvement in the swallowing effort. Still recommended to keep him nothing by mouth by speech pathologist General: Denies: ROS Unobtainable, Chills, Night Sweats, Fatigue, Malaise, Normal Appetite, Other Symptoms Constitutional: Denies: Chills, Fever, Malaise, Night Sweats, Weakness, Fatigue, Weight Loss, Lethargy, Other Skin: Denies: Rash, Lesions, Jaundice, Bruising, Itching, Dry, Breakdown, Nail Changes, Other Pulmonary: Denies: Dyspnea, Cough, Pleuritic Chest Pain, Other Symptoms Cardiovascular: Denies: Chest Pain, Palpitations, Orthopnea, Paroxysmal Noc. Dyspnea, Edema, Lt Headedness, Other Symptoms Gastrointestinal: Denies: Nausea, Vomiting, Abdominal Pain, Diarrhea, Constipation, Melena, Hematochezia, Other Symptoms Musculoskeletal: Denies: Neck Pain, Back Pain, Shoulder Pain, Arm Pain, Hand Pain, Leg Pain, Foot Pain, Joint Pain, Muscle Pain, Spasms, Other Symptoms Neurological: Denies: Weakness, Numbness, Incoordination, Change in speech, Confusion, Seizures, Other Symptoms Objective Physical Examination General Exam: Positive: Cooperative Chest Exam: Positive: Clear to auscultation, Normal air movement Heart Exam: Positive: Rate Normal, Normal S1, Normal S2 Abdomen Exam: Positive: Normal bowel sounds, Soft, Tenderness Assessment /Plan Problems (1) Septic shock Problem Text: Septic shock Source unknown, white count slightly improved today, possible infected [place] catheter/right subclavian triple-lumen catheter, both removed, continue vancomycin, Zosyn, switched to Merrem, urine growing yeast, fluconazole started. Patient failed patient failed swallow eval again, hold all by mouth meds Continue D5W PICC line ordered for TPN and will request a swallow well. Again 2-3 days Hospital transferred to [facility] floor today (2) HTN (hypertension) Status: Chronic Problem Text: Under control New present meds (3) IRMA (acute kidney injury) Status: Acute Problem Text: Acute on chronic kidney disease. Initially with significant metabolic acidosis and electrolyte abnormalities, improved with CRRT, CRRT discontinued 2 days ago, urine output improving, Lasix drip has been held since last night, nephrology following. (4) Diabetes mellitus Status: Chronic Problem Text: Diabetes mellitus. old metformin, sliding still insulin every 6 hours. Plan/VTE VTE Prophylaxis Ordered?: Yes VS, I&O, 24H, [facility]bone Vital Signs/I&O Vital Signs Date Time Temp Pulse Resp B/P (MAP) Pulse Ox O2 Delivery O2 Flow Rate FiO2 07/12/19 10:19 99.1 127 20 96 Room Air 07/12/19 04:00 156/73 07/11/19 05:01 1.0 07/08/19 16:00 35 I&O- Last 24 Hours up to 6 AM 07/12/19 06:00 Intake Total 510 ml Output Total 1195 ml Balance -685 ml Laboratory Data 24H LABS Laboratory Tests 2 07/11/19 12:05: Bedside Glucose (Misc Panel) 190H 07/11/19 17:33: Bedside Glucose (Misc Panel) 190H 07/12/19 00:26: Bedside Glucose (Misc Panel) 185H 07/12/19 04:57: Immature Granulocyte % (Auto) 0.7, Neutrophils (%) (Auto) 78.8H, Lymphocytes (%) (Auto) 7.1L, Monocytes (%) (Auto) 11.6H, Eosinophils (%) (Auto) 1.7, Basophils (%) (Auto) 0.1, Neutrophils # (Auto) 10.8H, Lymphocytes # (Auto) 1.0L, Monocytes # (Auto) 1.6H, Eosinophils # (Auto) 0.2, Basophils # (Auto) 0.0, Nucleated Red Blood Cells % (auto) 0.0, Anion Gap 8, Glomerular Filtration Rate 42.6, Calcium Level 8.5L, Total Bilirubin 0.9, Aspartate Amino Transf (AST/SGOT) 16, Alanine Aminotransferase (ALT/SGPT) 14, Alkaline Phosphatase 96, Total Protein 5.6L, Albumin 2.2L, Albumin/Globulin Ratio 0.65L CBC/BMP Laboratory Tests 07/12/19 04:57 Microbiology Microbiology 07/09/19 Blood Culture - Preliminary, Resulted No Growth after 48 hours. All Specime... 07/09/19 Blood Culture - Preliminary, Resulted No Growth after 48 hours. All Specime... 07/09/19 Urine Culture - Final, Complete Yeast Like Organism 07/09/19 Gastrointestinal Tract Panel (PCR) - Final, Complete 07/04/19 Stool Occult Blood (IAN) - Final, Complete 07/04/19 Blood Culture - Final, Complete NO GROWTH AFTER 5 DAYS 07/04/19 Respiratory Virus Panel (PCR) (IAN) - Final, Complete 07/04/19 Blood Culture - Final, Complete NO GROWTH AFTER 5 DAYS SO MORALES MD Jul 12, 2019 11:11
[2019-07-12] MEDS: MEROPENEM INJ 1 GM in IV 1 EA IV SCH ×2 (11:41→21:21)
[2019-07-12 12:00] VITALS: BP 127/62
--- NOTE | 2019-07-12 12:46 | IPN ---
DATE OF VISIT: 07/12/2019 Mr. Higgins is seen this morning on his bedside. He is more alert and able to talk better today. He failed his swallowing evaluation once again and remains on IV fluid. He is waiting for PICC line placement with plan for TPN to be started later today. The patient remains afebrile and his dyspnea has improved significantly. He is not using oxygen anymore and his oxygen saturation is 96% on room air. PHYSICAL EXAMINATION: Temperature 98.7 degrees Fahrenheit, heart rate 127 per minute and respiratory rate 20 per minute. Blood pressure 156/73 mmHg and oxygen saturation 96% on room air. Head is atraumatic. Neck supple and jugular venous distention (JVD) not abnormally elevated. His heart sounds are tachycardiac and lungs much clear with a few basilar crackles. Abdomen soft and nontender and colostomy is functioning. Extremities without any cyanosis or clubbing. Neurologically he is much more alert and able to have a conversation. Today's labs show a WBC count of 13.7, hemoglobin 10.0 and hematocrit 32.6. Platelets 245. Sodium is up to 156, potassium 3.2, chloride 123, CO2 25, BUN 30 and creatinine 1.69. Glucose 210 and calcium 8.5. PROBLEMS: 1. Acute renal failure. The patient is nonoliguric and kidney function has started to improve. At present he has good spontaneous urine output. No indication for dialysis. 2. Hypernatremia. This is related to IV fluids and no oral intake. He is not getting any free water and was getting IV normal saline. I am going to change his IV fluid to half-normal saline and also add potassium chloride 20 mEq in each liter. He is going to receive total parenteral nutrition (TPN) later today and I would suggest to use a low-sodium formula. 3. Hypokalemia. Again this is nutritional and related to recovering kidney function. The patient is going to receive a couple of K runs and we will also add 20 mEq potassium chloride in each liter of IV fluid. Electrolytes will be checked again tomorrow morning. 4. Sepsis. His fever has improved and he remains hemodynamically stable. White cell count is coming down and blood cultures have been negative. We stopped his vancomycin yesterday due to risk of nephrotoxicity in the setting of acute renal failure. 5. Anemia at present his anemia is stable and does not need any urgent intervention.
[2019-07-12 16:00] VITALS: BP 139/65
[2019-07-12] MEDS ORDERED: SODIUM CHLORIDE 0.9% INJ 10 ML SYR IV PRN (16:00)
[2019-07-12] MEDS ORDERED: HumaLOG INSULIN (NovoLOG) PER UNIT SC SCH (18:00)
[2019-07-12] MEDS ORDERED: AMINO AC/ELECTROLYTE/DEX/CALC 2,000 ML IV SCH (18:00)
[2019-07-12] MEDS ORDERED: FAT EMULSION IV 20% 500 ML IV SCH (18:00)
[2019-07-12] MEDS: SODIUM CHLORIDE 0.9% INJ 10 ML SYR IV SCH (18:35)
[2019-07-12] MEDS: FLUCONAZOLE 200 MG in IV 1 EA IV SCH (18:39)
[2019-07-12 20:00] VITALS: BP 127/62
[2019-07-13] VITALS (8 sets, daily range): BP systolic 130–164; BP diastolic 62–81
[2019-07-13] MEDS: IPRATROPIUM 0.5MG/ALBUTEROL 2.5MG INH SOL UD 3ML (DUONEB)(J7620) NEB SCH ×4 (01:02→20:15)
[2019-07-13] MEDS: HumaLOG INSULIN (NovoLOG) PER UNIT SC SCH ×3 (05:08→17:21)
[2019-07-13] MEDS: HEPARIN SOD (PORCINE) 5000 UNITS/ML VIAL SQ SCH ×3 (05:09→22:06)
[2019-07-13] MEDS: NYSTATIN 500,000 U/5 ML SUSP UDC SS SCH ×3 (05:09→17:57)
[2019-07-13] MEDS: SODIUM CHLORIDE 0.9% INJ 10 ML SYR IV SCH ×2 (05:09→17:58)
[2019-07-13 05:23] LABS: HEMATOCRIT 31.2 % (42.0-52.0); HEMOGLOBIN 9.5 g/dl (13.5-17.5); MEAN CORPUSCULAR HEMOGLOBIN 29.7 pg (27.0-33.0); MEAN CORPUSCULAR HGB CONC 30.4 g/dl (32.0-36.5); MEAN CORPUSCULAR VOLUME 97.5 fl (80.0-96.0); PLATELET COUNT, AUTOMATED 247 10^3/uL (150-450); WHITE BLOOD COUNT 13.7 10^3/uL (4.0-10.0)
[2019-07-13 05:49] LABS: CALCIUM LEVEL 8.5 MG/DL (8.8-10.2); CREATININE FOR GFR 1.67 MG/DL (0.70-1.30); GLOMERULAR FILTRATION RATE 43.1 (>42); MAGNESIUM LEVEL 1.6 MG/DL (1.8-2.4); PHOSPHORUS LEVEL 3.1 MG/DL (2.5-4.9); POTASSIUM SERUM 3.4 MEQ/L (3.5-5.1)
[2019-07-13] MEDS: MEROPENEM INJ 1 GM in IV 1 EA IV SCH ×2 (10:00→22:06)
[2019-07-13] MEDS: PANTOPRAZOLE 40MG INJ (PROTONIX) (C9113) IV SCH (10:01)
[2019-07-13] MEDS ORDERED: VARIBAR PUDDING 40% w/v 230ML TUBE As Ordered ONE (10:35)
[2019-07-13] MEDS ORDERED: VARIBAR NECTAR 40% w/v 240ML SUSP BTL As Ordered ONE (10:35)
[2019-07-13] MEDS ORDERED: E-Z-PAQUE 96% w/w SUSP 176GM BTL As Ordered ONE (10:36)
--- NOTE | 2019-07-13 11:47 | IPNPDOC ---
Subjective Date Seen The patient was seen on 07/13/19. Subjective Chief Complaint/HPI Patient is comfortable offers no new complaints. Wants to go home and eat General: Denies: ROS Unobtainable, Chills, Night Sweats, Fatigue, Malaise, Normal Appetite, Other Symptoms Constitutional: Denies: Chills, Fever, Malaise, Night Sweats, Weakness, Fatigue, Weight Loss, Lethargy, Other Pulmonary: Denies: Dyspnea, Cough, Pleuritic Chest Pain, Other Symptoms Cardiovascular: Denies: Chest Pain, Palpitations, Orthopnea, Paroxysmal Noc. Dyspnea, Edema, Lt Headedness, Other Symptoms Gastrointestinal: Denies: Nausea, Vomiting, Abdominal Pain, Diarrhea, Constipation, Melena, Hematochezia, Other Symptoms Endocrine: Denies: Polydipsia, Polyphagia, Polyuria, Heat Intolerance, Cold Intolerance, Other Endocrine Sx Musculoskeletal: Denies: Neck Pain, Back Pain, Shoulder Pain, Arm Pain, Hand Pain, Leg Pain, Foot Pain, Joint Pain, Muscle Pain, Spasms, Other Symptoms Neurological: Denies: Weakness, Numbness, Incoordination, Change in speech, Confusion, Seizures, Other Symptoms Psych: Denies: Mood Normal, Anxiety, Depression, Memory Issues, Thoughts of Self Harm, Anger, Thoughts of Harming Other, Other Psych Objective Physical Examination General Exam: Positive: Cooperative Chest Exam: Positive: Clear to auscultation, Normal air movement Heart Exam: Positive: Rate Normal, Normal S1, Normal S2 Abdomen Exam: Positive: Normal bowel sounds, Soft, Tenderness Extremity Exam: Positive: Normal pulses Neuro Exam: Positive: Strength at 5/5 X4 ext, Normal Tone, Sensation Intact, Cranial Nerves 3-12 NL Assessment /Plan Problems (1) Septic shock Problem Text: Septic shock Source unknown, white count slightly improved today, possible infected [place] catheter/right subclavian triple-lumen catheter, both removed, continue vancomycin, Zosyn, switched to Merrem, urine growing yeast, fluconazole started. PICC line was placed in and TPN has been started for nutritional supplements We will repeat SWALLOW eval and patient is more awake, alert and oriented. The possibility of him passing the swallow test can be restarted on his oral meds and oral feeding Patient began be transferred to PCU Continue present meds (2) HTN (hypertension) Status: Chronic Problem Text: Under control New present meds (3) IRMA (acute kidney injury) Status: Acute Problem Text: Acute on chronic kidney disease. Initially with significant metabolic acidosis and electrolyte abnormalities, improved with CRRT, CRRT was discontinued o, urine output improving, Lasix drip has been held since last night, nephrology following. (4) Diabetes mellitus Status: Chronic Problem Text: Diabetes mellitus. old metformin, sliding still insulin every 6 hours. (5) Sinus tachycardia Status: Acute Problem Text: Patient offers all meds Will restart Lopressor 12.5 mg IV every 6 hours to control his heart rate Will restart oral meds, once he is able to take oral medications Plan/VTE VTE Prophylaxis Ordered?: Yes VS, I&O, 24H, Fishbone Vital Signs/I&O Vital Signs Date Time Temp Pulse Resp B/P (MAP) Pulse Ox O2 Delivery O2 Flow Rate FiO2 07/13/19 04:17 98.8 127 26 152/79 (103) 93 Room Air 07/11/19 05:01 1.0 07/08/19 16:00 35 I&O- Last 24 Hours up to 6 AM 07/13/19 06:00 Intake Total 1800 ml Output Total 950 ml Balance 850 ml Laboratory Data 24H LABS Laboratory Tests 2 07/12/19 12:43: Bedside Glucose (Misc Panel) 181H 07/12/19 18:12: Bedside Glucose (Misc Panel) 179H 07/12/19 23:23: Bedside Glucose (Misc Panel) 237H 07/13/19 04:47: Bedside Glucose (Misc Panel) 234H 07/13/19 05:10: Nucleated Red Blood Cells % (auto) 0.0, Anion Gap 6L, Glomerular Filtration Rate 43.1, Calcium Level 8.5L, Phosphorus Level 3.1, Magnesium Level 1.6L CBC/BMP Laboratory Tests 07/13/19 05:10 Microbiology Microbiology 07/09/19 Blood Culture - Preliminary, Resulted No Growth after 72 hours. All specime... 07/09/19 Blood Culture - Preliminary, Resulted No Growth after 72 hours. All specime... 07/09/19 Urine Culture - Final, Complete Yeast Like Organism 07/09/19 Gastrointestinal Tract Panel (PCR) - Final, Complete 07/04/19 Stool Occult Blood (IAN) - Final, Complete 07/04/19 Blood Culture - Final, Complete NO GROWTH AFTER 5 DAYS 07/04/19 Respiratory Virus Panel (PCR) (IAN) - Final, Complete 07/04/19 Blood Culture - Final, Complete NO GROWTH AFTER 5 DAYS SO MORALES MD Jul 13, 2019 11:47
[2019-07-13] MEDS: METOPROLOL 5 MG/5 ML VIAL IV SCH ×3 (12:11→22:05)
--- NOTE | 2019-07-13 13:49 | REP ---
MODIFIED BARIUM SWALLOW: HISTORY: Dysphasia. A TECHNIQUE: Study is performed in conjunction with the swallowing therapist who fed the patient varying consistencies of barium labeled material. Lateral cine fluoroscopy was obtained and recorded. Fluoroscopy time is 0.9 minutes. FINDINGS: With initial spoonful of thin liquid given to the patient, the larynx was observed to elevate with swallowing but the epiglottis did not inverted and there was laryngeal penetration seen. No aspiration was observed initially. After the initial two swallows epiglottic inversion was observed but laryngeal penetration persisted and there was a small amount of tracheal aspiration with thin liquids producing a cough reflex. Laryngeal penetration seen to be less with chin tuck position during swallowing. However, laryngeal penetration was observed with each swallow successively. 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 Intermittent failure of epiglottic inversion. Electronically Signed by Rodolfo Chester MD 07/13/2019 01:59 P
--- NOTE | 2019-07-13 17:19 | REP ---
Procedure: PICC line insertion with Nahid The procedure was performed under the direct supervision of Dr. Villa. The risks and benefits of the procedure were explained to the patient and informed consent was obtained. The right basilic vein was localized using ultrasound guidance. The skin was prepped and draped in a sterile fashion. 1% lidocaine was used as a local anesthetic. Using ultrasound guidance the basilic vein was cannulated and a 0.018 guidewire was inserted and advanced to the SVC using fluoroscopic guidance. The needle was removed and a 5.5 Cameroonian dilator and peel-away sheath was inserted over the guide wire. A 5.5 [place]onian dual lumen catheter was cut to length of 42 cm. The dilator was removed and the catheter was inserted over the guide wire with the tip ending in the SVC. The peel-away sheath was removed and the catheter was flushed with heparinized saline as per Hospital protocol. The catheter was affixed to the skin and a sterile dressing was applied. The patient tolerated the procedure well and there were no immediate complications. 0.1 minutes of fluoro time was utilized for this procedure. Electronically Signed by ANALISA Milligan 07/12/2019 04:34 P Electronically Signed by Yong Villa MD 07/13/2019 05:09 P
[2019-07-13] MEDS: FLUCONAZOLE 200 MG in IV 1 EA IV SCH (17:58)
[2019-07-13] MEDS ORDERED: FAT EMULSION IV 20% 500 ML IV SCH (18:00)
[2019-07-13] MEDS ORDERED: [UNRECOGNIZED DRUG - OTHER] IV SCH ×7 (18:00)
[2019-07-13] MEDS ORDERED: POTASSIUM CHLORIDE IV SCH ×7 (18:00)
[2019-07-13] MEDS ORDERED: POTASSIUM PHOSPHATE IV SCH ×7 (18:00)
[2019-07-14] VITALS (12 sets, daily range): BP systolic 125–163; BP diastolic 58–75
[2019-07-14] MEDS: NYSTATIN 500,000 U/5 ML SUSP UDC SS SCH ×4 (00:45→17:51)
[2019-07-14] MEDS: HumaLOG INSULIN (NovoLOG) PER UNIT SC SCH ×4 (00:45→17:50)
[2019-07-14] MEDS: IPRATROPIUM 0.5MG/ALBUTEROL 2.5MG INH SOL UD 3ML (DUONEB)(J7620) NEB SCH ×4 (02:20→19:54)
[2019-07-14] MEDS: METOPROLOL 5 MG/5 ML VIAL IV SCH ×4 (03:48→22:29)
[2019-07-14 05:27] LABS: BASO % 0.3 % (0.0-1.0); EOS # 0.9 10^3/uL (0.0-0.5); EOS % 5.8 % (0.0-3.0); HEMATOCRIT 31.1 % (42.0-52.0); HEMOGLOBIN 9.4 g/dl (13.5-17.5); LYMPH # 1.5 10^3/uL (1.5-5.0); LYMPH % 9.2 % (24.0-44.0); MEAN CORPUSCULAR HEMOGLOBIN 29.8 pg (27.0-33.0); MEAN CORPUSCULAR HGB CONC 30.2 g/dl (32.0-36.5); MEAN CORPUSCULAR VOLUME 98.7 fl (80.0-96.0); MONO # 1.5 10^3/uL (0.0-0.8); MONO % 9.1 % (0.0-5.0); NEUTROPHILS # 11.9 10^3/uL (1.5-8.5); NEUTROPHILS % 74.3 % (36.0-66.0); PLATELET COUNT, AUTOMATED 239 10^3/uL (150-450); RED BLOOD COUNT 3.15 10^6/uL (4.30-6.10); WHITE BLOOD COUNT 15.9 10^3/uL (4.0-10.0)
[2019-07-14] MEDS: HEPARIN SOD (PORCINE) 5000 UNITS/ML VIAL SQ SCH ×3 (05:44→22:30)
[2019-07-14] MEDS: SODIUM CHLORIDE 0.9% INJ 10 ML SYR IV SCH ×2 (05:45→17:52)
[2019-07-14 06:15] LABS: ALBUMIN 2.1 GM/DL (3.2-5.2); BILIRUBIN,TOTAL 0.5 MG/DL (0.2-1.0); CALCIUM LEVEL 8.1 MG/DL (8.8-10.2); CREATININE FOR GFR 1.59 MG/DL (0.70-1.30); GLOMERULAR FILTRATION RATE 45.7 (>42); TOTAL PROTEIN 4.8 GM/DL (6.4-8.2)
[2019-07-14] MEDS ORDERED: D5W 1,000 ML IV SCH (06:30)
[2019-07-14 07:02] LABS: MAGNESIUM LEVEL 1.8 MG/DL (1.8-2.4)
[2019-07-14] MEDS: PANTOPRAZOLE 40MG INJ (PROTONIX) (C9113) IV SCH (10:35)
[2019-07-14] MEDS: MEROPENEM INJ 1 GM in IV 1 EA IV SCH ×2 (10:36→22:29)
[2019-07-14] MEDS: D5W 1,000 ML IV SCH (10:45)
--- NOTE | 2019-07-14 11:45 | IPNPDOC ---
Subjective Date Seen The patient was seen on 07/14/19. Subjective Chief Complaint/HPI Patient wants to go home and he doesn't like the food. As per nursing staff is been pocketing food and unable to swallow. General: Reports: ROS Unobtainable Objective Physical Examination General Exam: Positive: Cooperative ENT Exam: Positive: Atraumatic, Mucous membr. moist/pink Chest Exam: Positive: Clear to auscultation, Normal air movement Heart Exam: Positive: Rate Normal, Tachycardic, Normal S1, Normal S2 Abdomen Exam: Positive: Normal bowel sounds, Soft, Tenderness Extremity Exam: Positive: Normal pulses Neuro Exam: Positive: Strength at 5/5 X4 ext, Normal Tone, Sensation Intact, Cranial Nerves 3-12 NL Assessment /Plan Problems (1) Septic shock Status: Acute Problem Text: Septic shock Source unknown, white count slightly improved today, possible infected [place] catheter/right subclavian triple-lumen catheter, both removed, continue vancomycin, Zosyn, switched to Merrem, urine growing yeast, fluconazole started. PICC line was placed in and TPN has been started for nutritional supplements Patient was restarted on a pured diet with honey thickened fluids , But patient has been pocketing food and his cheek and is unable to swallow Will keep him nothing by mouth again Hold all by mouth meds Continue beta blockers for heart rate control Will try swallow eval again on Tuesday the meantime, will continue TPN (2) HTN (hypertension) Status: Chronic Problem Text: Under control New present meds (3) IRMA (acute kidney injury) Status: Acute Problem Text: Acute on chronic kidney disease. Initially with significant metabolic acidosis and electrolyte abnormalities, improved with CRRT, CRRT was discontinued , urine output improved, , nephrology following. Discuss with Dr. Moreau will continue TPN without sodium and D5W (4) Diabetes mellitus Status: Chronic Problem Text: Diabetes mellitus. old metformin, sliding still insulin every 6 hours. (5) Sinus tachycardia Status: Acute Problem Text: Patient offers all meds Will restart Lopressor 12.5 mg IV every 6 hours to control his heart rate Will restart oral meds, once he is able to take oral medications (6) Hypernatremia Status: Acute Problem Text: Discuss with Dr. Moreau will continue TPN without sodium and D5W has been added as well. Repeat labs in a.m. Plan/VTE VTE Prophylaxis Ordered?: Yes VS, I&O, 24H, Fishbone Vital Signs/I&O Vital Signs Date Time Temp Pulse Resp B/P (MAP) Pulse Ox O2 Delivery O2 Flow Rate FiO2 07/14/19 10:36 125 130/61 07/14/19 08:00 98.1 27 96 Room Air 07/11/19 05:01 1.0 07/08/19 16:00 35 I&O- Last 24 Hours up to 6 AM 07/14/19 06:00 Intake Total 2190 ml Output Total 10 ml Balance 2180 ml Laboratory Data 24H LABS Laboratory Tests 2 07/13/19 12:16: Bedside Glucose (Misc Panel) 263H 07/13/19 17:03: Bedside Glucose (Misc Panel) 145H 07/14/19 00:41: Bedside Glucose (Misc Panel) 296H 07/14/19 05:15: Immature Granulocyte % (Auto) 1.3, Neutrophils (%) (Auto) 74.3H, Lymphocytes (%) (Auto) 9.2L, Monocytes (%) (Auto) 9.1H, Eosinophils (%) (Auto) 5.8H, Basophils (%) (Auto) 0.3, Neutrophils # (Auto) 11.9H, Lymphocytes # (Auto) 1.5, Monocytes # (Auto) 1.5H, Eosinophils # (Auto) 0.9H, Basophils # (Auto) 0.0, Nucleated Red Blood Cells % (auto) 0.0, Anion Gap 8, Glomerular Filtration Rate 45.7, Calcium Level 8.1L, Magnesium Level 1.8, Total Bilirubin 0.5, Aspartate Amino Transf (AST/SGOT) 16, Alanine Aminotransferase (ALT/SGPT) 13, Alkaline Phosphatase 92, Total Protein 4.8L, Albumin 2.1L, Albumin/Globulin Ratio 0.78L 07/14/19 05:40: Bedside Glucose (Misc Panel) 163H CBC/BMP Laboratory Tests 07/14/19 05:15 Microbiology Microbiology 07/09/19 Blood Culture - Preliminary, Resulted No Growth after 72 hours. All specime... 07/09/19 Blood Culture - Preliminary, Resulted No Growth after 72 hours. All specime... 07/09/19 Urine Culture - Final, Complete Yeast Like Organism 07/09/19 Gastrointestinal Tract Panel (PCR) - Final, Complete 07/04/19 Stool Occult Blood (IAN) - Final, Complete 07/04/19 Blood Culture - Final, Complete NO GROWTH AFTER 5 DAYS 07/04/19 Respiratory Virus Panel (PCR) (IAN) - Final, Complete 07/04/19 Blood Culture - Final, Complete NO GROWTH AFTER 5 DAYS SO MORALES MD Jul 14, 2019 11:45
--- NOTE | 2019-07-14 13:26 | IPN ---
DATE OF VISIT: 07/14/2019 Mr. Higgins is seen this morning on his bedside. He is sitting in the chair and has been quite upset. Nursing staff reports that he would not allow them to put any Fixodent on his dentures. He was trying to eggs but could not swallow very well. He is still on total parenteral nutrition (TPN). His tachycardia and dyspnea is essentially unchanged. He has no fever or chills. The patient has been insisting on going home, though he has difficulty even getting up from his chair. On physical examination, temperature 98.1 degrees Fahrenheit, heart rate 125 per minute, and respiratory rate 27 per minute. Blood pressure 126/58 mmHg and oxygen saturation 96% on room air. His head is atraumatic. Neck is supple and jugular venous distention (JVD) difficult to be assessed. His heart sounds are tachycardiac and no pericardial friction rub audible. Lungs are much clear now. Abdomen: Soft and nontender, and his colostomy is functioning. Extremities have no cyanosis or clubbing. There is trace of ankle edema. Neurologically, he is awake and without a focal deficit. Intake and output records from yesterday showed total intake 2150 and output recorded only 180 mL, which is probably not accurate. Today's laboratories show WBC count 15.9, hemoglobin 9.4, and hematocrit 31. Platelets 239. Sodium 162, potassium 4.0, chloride 128, CO2 26, BUN 44, and creatinine 1.59. Glucose 177 and calcium 8.1. Total protein 4.8 and albumin 2.1. PROBLEMS: 1. Acute renal failure superimposed on chronic kidney disease. Kidney function is essentially unchanged. However, his urine output is not recorded accurately. Nursing staff will try to get his urine output recorded more accurately. 2. Hypernatremia. His sodium level got worse, most likely yesterday. His TPN has already been changed, and he is also receiving intravenous D5W. His electrolytes will be repeated this afternoon and again tomorrow morning. We will consider to stop TPN if he could eat better. However, he is not eating much better, so will continue with sodium-free TPN for now. 3. Generalized weakness and deconditioning. The patient is still very weak and requires significant assistance, even just to get up from the chair. He is insisting on going home, and I have tried to explain to him at length about his limitations and risk for going home while he is not stable. He is still not happy about it. 4. Nutrition. The patient is still not able to swallow properly, and the eggs that he was trying to eat this morning are still in his mouth. He remains on TPN for now.
[2019-07-14 17:52] LABS: CALCIUM LEVEL 8.6 MG/DL (8.8-10.2); CREATININE FOR GFR 1.68 MG/DL (0.70-1.30); GLOMERULAR FILTRATION RATE 42.9 (>42); POTASSIUM SERUM 4.2 MEQ/L (3.5-5.1)
[2019-07-14] MEDS: FLUCONAZOLE 200 MG in IV 1 EA IV SCH (17:52)
[2019-07-15] MEDS: HumaLOG INSULIN (NovoLOG) PER UNIT SC SCH ×5 (00:34→23:53)
[2019-07-15] MEDS: NYSTATIN 500,000 U/5 ML SUSP UDC SS SCH ×5 (00:34→23:53)
[2019-07-15] MEDS: IPRATROPIUM 0.5MG/ALBUTEROL 2.5MG INH SOL UD 3ML (DUONEB)(J7620) NEB SCH ×4 (01:55→19:44)
[2019-07-15] MEDS: METOPROLOL 5 MG/5 ML VIAL IV SCH ×4 (03:47→20:48)
[2019-07-15 04:00] VITALS: BP 146/76
[2019-07-15 05:25] LABS: HEMATOCRIT 28.9 % (42.0-52.0); MEAN CORPUSCULAR HEMOGLOBIN 30.2 pg (27.0-33.0); MEAN CORPUSCULAR HGB CONC 31.1 g/dl (32.0-36.5); PLATELET COUNT, AUTOMATED 224 10^3/uL (150-450); RED BLOOD COUNT 2.98 10^6/uL (4.30-6.10); WHITE BLOOD COUNT 16.8 10^3/uL (4.0-10.0)
[2019-07-15 05:38] LABS: ALBUMIN 1.9 GM/DL (3.2-5.2); CALCIUM LEVEL 8.3 MG/DL (8.8-10.2); CREATININE FOR GFR 1.71 MG/DL (0.70-1.30); PHOSPHORUS LEVEL 3.4 MG/DL (2.5-4.9); POTASSIUM SERUM 3.7 MEQ/L (3.5-5.1)
[2019-07-15] MEDS: HEPARIN SOD (PORCINE) 5000 UNITS/ML VIAL SQ SCH ×3 (06:00→20:43)
[2019-07-15] MEDS: SODIUM CHLORIDE 0.9% INJ 10 ML SYR IV SCH ×2 (06:01→18:01)
[2019-07-15 08:00] VITALS: BP 144/70
--- NOTE | 2019-07-15 08:35 | REP ---
Portable chest x-ray: Single view. History: Pneumonia. Comparison study: July 10, 2019. Findings: Monitoring electrodes are seen. A right-sided PICC line is seen in place unchanged. There is minimal plate-like atelectasis in the left base, improved from the 07/10/2019 prior study. Heart is not enlarged. No new infiltrate is seen. Pleural angles are sharp. Pulmonary vasculature is not increased. Impression: Improved plate-like atelectasis left base. No new infiltrate. Electronically Signed by Rodolfo Chester MD 07/15/2019 08:26 A
[2019-07-15] MEDS: PANTOPRAZOLE 40MG INJ (PROTONIX) (C9113) IV SCH (08:42)
[2019-07-15] MEDS: MEROPENEM INJ 1 GM in IV 1 EA IV SCH ×2 (08:43→20:42)
--- NOTE | 2019-07-15 09:52 | IPNPDOC ---
Subjective Date Seen The patient was seen on 07/15/19. Subjective Chief Complaint/HPI Patient wants to eat and he wants to go home. He does not offer any other medical complaints General: Denies: ROS Unobtainable, Chills, Night Sweats, Fatigue, Malaise, Normal Appetite, Other Symptoms Constitutional: Denies: Chills, Fever, Malaise, Night Sweats, Weakness, Fatigue, Weight Loss, Lethargy, Other Pulmonary: Denies: Dyspnea, Cough, Pleuritic Chest Pain, Other Symptoms Cardiovascular: Denies: Chest Pain, Palpitations, Orthopnea, Paroxysmal Noc. Dyspnea, Edema, Lt Headedness, Other Symptoms Gastrointestinal: Denies: Nausea, Vomiting, Abdominal Pain, Diarrhea, Constipation, Melena, Hematochezia, Other Symptoms Musculoskeletal: Denies: Neck Pain, Back Pain, Shoulder Pain, Arm Pain, Hand Pain, Leg Pain, Foot Pain, Joint Pain, Muscle Pain, Spasms, Other Symptoms Neurological: Denies: Weakness, Numbness, Incoordination, Change in speech, Confusion, Seizures, Other Symptoms Objective Physical Examination ENT Exam: Positive: Atraumatic, Mucous membr. moist/pink Chest Exam: Positive: Clear to auscultation, Normal air movement Heart Exam: Positive: Rate Normal, Tachycardic, Normal S1, Normal S2 Abdomen Exam: Positive: Normal bowel sounds, Soft, Tenderness Extremity Exam: Positive: Normal pulses Assessment /Plan Problems (1) Sepsis Status: Acute Problem Text: Patient had a low-grade fever last night 99.2, his WBC count is still elevated 16.8 . He is on meropenem and fluconazole Repeat blood cultures and urine cultures has been ordered Will request infectious disease consult to further help us guide with antibiotic use Source is unknown, [place] catheter and a right subclavian triple-lumen were removed during his stay here Will continue TPN therapy without sodium as ordered by nephrology by a PICC line Keep patient nothing by mouth as he still has trouble swallowing Will continue beta blockers for the heart rate control IV as per orders . We'll repeat swallow eval in a few days. Again see the progress as patient has been progressing slowly. (2) HTN (hypertension) Status: Chronic Problem Text: All by mouth meds on hold On IV metoprolol for heart rate control and blood pressure control (3) IRMA (acute kidney injury) Status: Acute Problem Text: Acute on chronic kidney disease. Initially with significant metabolic acidosis and electrolyte abnormalities, improved with CRRT, CRRT was discontinued , urine output improved, , nephrology following. Discuss with Dr. Moreau will continue TPN without sodium and D5W (4) Diabetes mellitus Status: Chronic Problem Text: Fingerstick blood sugar every 6 hours with coverage (5) Sinus tachycardia Status: Acute Problem Text: Patient offers all meds Will restart Lopressor 12.5 mg IV every 6 hours to control his heart rate Will restart oral meds, once he is able to take oral medications (6) Hypernatremia Status: Acute Problem Text: Patient is on TPN with no sodium Also on D5W as per nephrology orders . His last sodium is 158, which is progressively and slowly decreasing Continue present care Plan/VTE VTE Prophylaxis Ordered?: Yes VS, I&O, 24H, Fishbone Vital Signs/I&O Vital Signs Date Time Temp Pulse Resp B/P (MAP) Pulse Ox O2 Delivery O2 Flow Rate FiO2 07/15/19 08:42 162 144/70 07/15/19 08:00 98.6 24 97 Room Air 07/11/19 05:01 1.0 I&O- Last 24 Hours up to 6 AM 07/15/19 06:00 Intake Total 1815 ml Output Total 300 ml Balance 1515 ml Laboratory Data 24H LABS Laboratory Tests 2 07/14/19 12:29: Bedside Glucose (Misc Panel) 388H 07/14/19 17:03: Anion Gap 9, Glomerular Filtration Rate 42.9, Calcium Level 8.6L 07/14/19 17:32: Bedside Glucose (Misc Panel) 180H 07/15/19 00:07: Bedside Glucose (Misc Panel) 161H 07/15/19 04:59: Nucleated Red Blood Cells % (auto) 0.0, Anion Gap 9, Glomerular Filtration Rate 42.0, Calcium Level 8.3L, Phosphorus Level 3.4, Albumin 1.9L CBC/BMP Laboratory Tests 07/14/19 17:03 07/15/19 04:59 Microbiology Microbiology 07/15/19 Blood Culture, Received Pending 07/09/19 Blood Culture - Final, Complete NO GROWTH AFTER 5 DAYS 07/09/19 Blood Culture - Final, Complete NO GROWTH AFTER 5 DAYS 07/09/19 Urine Culture - Final, Complete Yeast Like Organism 07/09/19 Gastrointestinal Tract Panel (PCR) - Final, Complete SO MORALES MD Jul 15, 2019 09:52
[2019-07-15] MEDS: D5W 1,000 ML IV SCH (10:59)
[2019-07-15 12:00] VITALS: BP 135/80
[2019-07-15 16:00] VITALS: BP 140/75
[2019-07-15] MEDS ORDERED: POTASSIUM CHLORIDE IV SCH ×4 (18:00)
[2019-07-15] MEDS ORDERED: [UNRECOGNIZED DRUG - OTHER] IV SCH ×4 (18:00)
[2019-07-15] MEDS ORDERED: MAGNESIUM SULFATE IV SCH ×4 (18:00)
[2019-07-15] MEDS: FLUCONAZOLE 200 MG in IV 1 EA IV SCH (18:00)
[2019-07-15] MEDS ORDERED: FAT EMULSION IV 20% 500 ML IV SCH (18:00)
[2019-07-15 20:00] VITALS: BP 168/64
[2019-07-15] MEDS: MAGNESIUM OXIDE 400 MG TAB (MAG-OX) PO SCH (20:52)
[2019-07-15] MEDS: FERROUS SULFATE 325MG TAB PO SCH (20:52)
[2019-07-15] MEDS: METOPROLOL TART 25 MG TABLET PO SCH (20:52)
[2019-07-15] MEDS: busPIRone 5 MG TAB PO SCH (20:52)
[2019-07-15] MEDS: SIMVASTATIN 20 MG TAB PO SCH (20:53)
[2019-07-15] MEDS: propylthiouraciL 50 MG TAB PO SCH (20:53)
[2019-07-15] MEDS: RAMELTEON 8 MG TAB (ROZEREM) PO SCH (20:53)
[2019-07-16] VITALS (7 sets, daily range): BP systolic 149–175; BP diastolic 71–80
[2019-07-16] MEDS: IPRATROPIUM 0.5MG/ALBUTEROL 2.5MG INH SOL UD 3ML (DUONEB)(J7620) NEB SCH ×4 (01:48→20:05)
[2019-07-16] MEDS: METOPROLOL 5 MG/5 ML VIAL IV SCH ×4 (04:05→21:17)
[2019-07-16] MEDS: NYSTATIN 500,000 U/5 ML SUSP UDC SS SCH ×3 (05:21→17:54)
[2019-07-16] MEDS: HEPARIN SOD (PORCINE) 5000 UNITS/ML VIAL SQ SCH ×3 (05:22→21:15)
[2019-07-16] MEDS: HumaLOG INSULIN (NovoLOG) PER UNIT SC SCH ×3 (05:22→17:55)
[2019-07-16] MEDS: SODIUM CHLORIDE 0.9% INJ 10 ML SYR IV SCH ×2 (05:23→17:58)
[2019-07-16 05:46] LABS: BASO % 0.2 % (0.0-1.0); EOS # 0.5 10^3/uL (0.0-0.5); EOS % 3.1 % (0.0-3.0); HEMATOCRIT 29.7 % (42.0-52.0); HEMOGLOBIN 9.4 g/dl (13.5-17.5); LYMPH # 0.9 10^3/uL (1.5-5.0); LYMPH % 6.3 % (24.0-44.0); MEAN CORPUSCULAR HEMOGLOBIN 35.5 pg (27.0-33.0); MEAN CORPUSCULAR HGB CONC 31.6 g/dl (32.0-36.5); MEAN CORPUSCULAR VOLUME 112.1 fl (80.0-96.0); MONO # 0.8 10^3/uL (0.0-0.8); MONO % 5.3 % (0.0-5.0); NEUTROPHILS # 12.3 10^3/uL (1.5-8.5); NEUTROPHILS % 84.4 % (36.0-66.0); PLATELET COUNT, AUTOMATED 212 10^3/uL (150-450); RED BLOOD COUNT 2.65 10^6/uL (4.30-6.10); WHITE BLOOD COUNT 14.6 10^3/uL (4.0-10.0)
[2019-07-16 08:19] LABS: ALBUMIN 1.8 GM/DL (3.2-5.2); BILIRUBIN,TOTAL 0.7 MG/DL (0.2-1.0); C REACTIVE PROTEIN QUANTITATIV 16.4 MG/DL (0.00-0.30); CALCIUM LEVEL 8.9 MG/DL (8.8-10.2); CREATININE FOR GFR 1.63 MG/DL (0.70-1.30); GLOMERULAR FILTRATION RATE 44.4 (>42); POTASSIUM SERUM 3.9 MEQ/L (3.5-5.1); TOTAL PROTEIN 5.3 GM/DL (6.4-8.2)
[2019-07-16] MEDS: VITAMIN D 1,000 INTERNATIONAL UNITS TABLET PO SCH (09:00)
[2019-07-16] MEDS: propylthiouraciL 50 MG TAB PO SCH ×2 (09:00→21:00)
[2019-07-16] MEDS: FOLIC ACID 1 MG TAB PO SCH (09:00)
[2019-07-16] MEDS: predniSONE 10 MG TAB PO SCH (09:00)
[2019-07-16] MEDS: FERROUS SULFATE 325MG TAB PO SCH ×2 (09:00→21:00)
[2019-07-16] MEDS: METOPROLOL TART 25 MG TABLET PO SCH ×2 (09:00→21:00)
[2019-07-16] MEDS: ASPIRIN 81 MG CHEW TABLET PO SCH (09:00)
[2019-07-16] MEDS: busPIRone 5 MG TAB PO SCH ×2 (09:00→21:00)
[2019-07-16] MEDS: MAGNESIUM OXIDE 400 MG TAB (MAG-OX) PO SCH ×2 (09:00→21:00)
--- NOTE | 2019-07-16 10:05 | IPNPDOC ---
Subjective Date Seen The patient was seen on 07/16/19. Subjective Chief Complaint/HPI Patient is comfortable. Again complaining of hunger and wants to eat. No shortness of breath, but he had a low-grade fever last night of 99.1. No other adverse event was reported from night team General: Denies: ROS Unobtainable, Chills, Night Sweats, Fatigue, Malaise, Normal Appetite, Other Symptoms Constitutional: Denies: Chills, Fever, Malaise, Night Sweats, Weakness, Fatigue, Weight Loss, Lethargy, Other Pulmonary: Denies: Dyspnea, Cough, Pleuritic Chest Pain, Other Symptoms Cardiovascular: Denies: Chest Pain, Palpitations, Orthopnea, Paroxysmal Noc. Dyspnea, Edema, Lt Headedness, Other Symptoms Gastrointestinal: Denies: Nausea, Vomiting, Abdominal Pain, Diarrhea, Constipation, Melena, Hematochezia, Other Symptoms Musculoskeletal: Denies: Neck Pain, Back Pain, Shoulder Pain, Arm Pain, Hand Pain, Leg Pain, Foot Pain, Joint Pain, Muscle Pain, Spasms, Other Symptoms Neurological: Denies: Weakness, Numbness, Incoordination, Change in speech, Confusion, Seizures, Other Symptoms Objective Physical Examination ENT Exam: Positive: Atraumatic, Mucous membr. moist/pink Chest Exam: Positive: Clear to auscultation, Normal air movement Heart Exam: Positive: Rate Normal, Tachycardic, Normal S1, Normal S2 Abdomen Exam: Positive: Normal bowel sounds, Soft, Tenderness Extremity Exam: Positive: Normal pulses Assessment /Plan Problems (1) Sepsis Status: Acute Problem Text: Patient again was febrile last night with temperature of 99.1 His WBC count is persistently high at 14.6, hemoglobin 9.4, hematocrit 29.7. Electrolytes are pending Repeat chest x-ray was obtained, showed no infiltrates Patient is currently on meropenem and fluconazole Will request infectious disease consult to further guide us to antibiotic management Repeat blood cultures and urine cultures has been ordered and reports are pending Source is unknown, [place] catheter and a right subclavian triple-lumen were removed during his stay here Will continue TPN therapy without sodium as ordered by nephrology by a PICC line for nutrition Keep patient nothing by mouth as he still has trouble swallowing We will repeat a swallow eval again today. If patient continues to fail swallow eval for next few days, then we will consider PEG placement Will continue beta blockers for the heart rate control IV as per orders (2) HTN (hypertension) Status: Chronic Problem Text: All by mouth meds on hold On IV metoprolol for heart rate control and blood pressure control (3) IRMA (acute kidney injury) Status: Acute Problem Text: Acute on chronic kidney disease. Initially with significant metabolic acidosis and electrolyte abnormalities, improved with CRRT, CRRT was discontinued , urine output improved, , nephrology following. Discuss with Dr. Moreau will continue TPN without sodium and D5W (4) Diabetes mellitus Status: Chronic Problem Text: Fingerstick blood sugar every 6 hours with coverage (5) Sinus tachycardia Status: Acute Problem Text: Patient offers all meds Will restart Lopressor 12.5 mg IV every 6 hours to control his heart rate Will restart oral meds, once he is able to take oral medications (6) Hypernatremia Status: Acute Problem Text: Patient is on TPN with no sodium Also on D5W as per nephrology orders His last sodium is 158, which is progressively and slowly decreasing, CMP today is pending Continue present care Plan/VTE VTE Prophylaxis Ordered?: Yes VS, I&O, 24H, Fishbone Vital Signs/I&O Vital Signs Date Time Temp Pulse Resp B/P (MAP) Pulse Ox O2 Delivery O2 Flow Rate FiO2 07/16/19 07:42 99.1 127 20 168/76 (106) 98 Room Air 07/11/19 05:01 1.0 I&O- Last 24 Hours up to 6 AM 07/16/19 06:00 Intake Total 570 ml Output Total 1800 ml Balance -1230 ml Laboratory Data 24H LABS Laboratory Tests 2 07/15/19 11:40: Bedside Glucose (Misc Panel) 138H 07/15/19 17:42: Bedside Glucose (Misc Panel) 224H 07/15/19 18:04: Urine Color YELLOW, Urine Appearance HAZY, Urine pH 5.0, Urine Specific [place] 1.010, Urine Protein NEGATIVE, Urine Glucose (UA) 1+H, Urine Ketones TRACEH, Urine Blood 2+H, Urine Nitrite NEGATIVE, Urine Bilirubin NEGATIVE, Urine Urobilinogen 0.2, Urine Leukocyte Esterase NEGATIVE, Urine WBC (Auto) 5H, Urine RBC (Auto) 1, Urine Hyaline Casts (Auto) 0, Urine Bacteria (Auto) NEGATIVE, Urine Squamous Epithelial Cells 1, Urine Mucus (Auto) SMALL, Urine Sperm (Auto) 07/15/19 23:39: Bedside Glucose (Misc Panel) 262H 07/16/19 05:18: Bedside Glucose (Misc Panel) 229H 07/16/19 05:25: Immature Granulocyte % (Auto) 0.7, Neutrophils (%) (Auto) 84.4H, Lymphocytes (%) (Auto) 6.3L, Monocytes (%) (Auto) 5.3H, Eosinophils (%) (Auto) 3.1H, Basophils (%) (Auto) 0.2, Neutrophils # (Auto) 12.3H, Lymphocytes # (Auto) 0.9L, Monocytes # (Auto) 0.8, Eosinophils # (Auto) 0.5, Basophils # (Auto) 0.0, Nucleated Red Blood Cells % (auto) 0.0 07/16/19 07:30: Anion Gap 5L, Glomerular Filtration Rate 44.4, Calcium Level 8.9, Total Bilirubin 0.7, Aspartate Amino Transf (AST/SGOT) 12, Alanine Aminotransferase (ALT/SGPT) 12, Alkaline Phosphatase 97, C-Reactive Protein, Quantitative 16.40H, Total Protein 5.3L, Albumin 1.8L, Albumin/Globulin Ratio 0.51L CBC/BMP Laboratory Tests 07/16/19 05:25 07/16/19 07:30 Microbiology Microbiology 07/15/19 Blood Culture - Preliminary, Resulted No growth after 24 hours . All specim... 07/09/19 Blood Culture - Final, Complete NO GROWTH AFTER 5 DAYS 07/09/19 Blood Culture - Final, Complete NO GROWTH AFTER 5 DAYS 07/09/19 Urine Culture - Final, Complete Yeast Like Organism 07/09/19 Gastrointestinal Tract Panel (PCR) - Final, Complete SO MORALES MD Jul 16, 2019 10:05
[2019-07-16] MEDS: MEROPENEM INJ 1 GM in IV 1 EA IV SCH ×2 (10:13→21:16)
[2019-07-16] MEDS: PANTOPRAZOLE 40MG INJ (PROTONIX) (C9113) IV SCH (10:13)
[2019-07-16] MEDS: methylPREDNISolone INJ 40 MG/1 ML VIAL (J2920) IV SCH (17:54)
[2019-07-16] MEDS: FLUCONAZOLE 200 MG in IV 1 EA IV SCH (17:58)
[2019-07-16] MEDS ORDERED: MAGNESIUM SULFATE IV SCH ×6 (18:00)
[2019-07-16] MEDS ORDERED: FAT EMULSION IV 20% 500 ML IV SCH (18:00)
[2019-07-16] MEDS ORDERED: POTASSIUM CHLORIDE IV SCH ×6 (18:00)
[2019-07-16] MEDS ORDERED: [UNRECOGNIZED DRUG - OTHER] IV SCH ×6 (18:00)
[2019-07-16] MEDS ORDERED: CALCIUM GLUCONATE IV SCH ×6 (18:00)
--- NOTE | 2019-07-16 18:27 | IPN ---
DATE: 07/15/2019 Mr. Higgins is seen this morning on his bedside. He has been transferred out of intensive care unit to [facility] care unit. He is less agitated and less upset today. He is laying in the bed and continues to be short of breath. His respiratory system is about 24 per minute. He has been nothing by mouth due to failed swallowing evaluation and remains on IV fluid. PHYSICAL EXAMINATION: Temperature 99.5 degrees Fahrenheit, heart rate 125 per minute and respiratory rate 26 per minute. Blood pressure 135/80 mmHg and oxygen saturation 95% on room air. His head is atraumatic. Neck is supple and jugular venous distention (JVD) difficult to be assessed. Heart sounds are tachycardiac. Lungs have scattered rhonchi bilaterally. Abdomen is soft and nontender and colostomy is functioning. Bowel sounds are present. Extremities have no cyanosis or clubbing. He has a peripherally inserted central catheter (PICC) line in his right upper extremity. Neurologically, he is at his baseline mentation without a focal neurological deficit. LABORATORY DATA: Today's laboratories show WBC count 16.8, hemoglobin 9.0, and hematocrit 28.9. Platelets 224. Sodium 158, potassium 3.7, chloride 126, CO2 23, BUN 49 and creatinine 1.71. Glucose 156 and calcium 8.3. Albumin is 1.9. PROBLEMS: 1. Acute kidney injury superimposed on chronic kidney disease. His kidney function has leveled off and there is only slight fluctuation but no real trend in his kidney function now for the last few days. He does not have any uremic symptoms and there is no need for dialysis. 2. Hypernatremia. His sodium level was up to 162 yesterday morning and he has been on intravenous D5W. Yesterday afternoon, sodium was down to 157 and it is about the same this morning. He is receiving only 50 mL of D5W. I am increasing his IV fluid to 75 mL/hour until this evening when he will start a new bag of total parenteral nutrition (TPN). At that point, his IV fluid D5W will be stopped. 3. Nutrition. The patient has been unable to swallow and he remains on TPN. I am writing his new TPN orders today. No sodium will be added in the TPN due to hypernatremia. 4. Leukocytosis and fever. His leukocytosis is gradually worsening once again. He has low-grade fever. I am concerned about the possibility of aspiration as he had difficulty swallowing. Antibiotics are being addressed by the hospitalist service. 5. Anemia. His anemia is stable and does not need any urgent intervention. 6. Generalized weakness and deconditioning. The patient remains very weak and is likely to require subacute rehabilitation.
[2019-07-16] MEDS: RAMELTEON 8 MG TAB (ROZEREM) PO SCH (21:00)
[2019-07-16] MEDS: SIMVASTATIN 20 MG TAB PO SCH (21:00)
[2019-07-16 22:17] LABS: URIC ACID 10.1 MG/DL (3.5-7.2)
[2019-07-16] MEDS: VANICREAM MOISTURIZING SKIN CREAM 113GM TUBE TOP SCH (22:47)
[2019-07-17] MEDS: NYSTATIN 500,000 U/5 ML SUSP UDC SS SCH ×4 (00:09→17:58)
[2019-07-17] MEDS: HumaLOG INSULIN (NovoLOG) PER UNIT SC SCH ×4 (00:09→18:00)
[2019-07-17] MEDS: IPRATROPIUM 0.5MG/ALBUTEROL 2.5MG INH SOL UD 3ML (DUONEB)(J7620) NEB SCH ×4 (01:43→20:00)
[2019-07-17 04:00] VITALS: BP 170/70
[2019-07-17] MEDS: METOPROLOL 5 MG/5 ML VIAL IV SCH ×4 (04:01→21:11)
[2019-07-17] MEDS: SODIUM CHLORIDE 0.9% INJ 10 ML SYR IV SCH ×2 (05:27→18:01)
[2019-07-17] MEDS: HEPARIN SOD (PORCINE) 5000 UNITS/ML VIAL SQ SCH ×3 (05:27→21:12)
[2019-07-17 06:10] LABS: HEMATOCRIT 32.2 % (42.0-52.0); HEMOGLOBIN 9.6 g/dl (13.5-17.5); MEAN CORPUSCULAR HEMOGLOBIN 29.3 pg (27.0-33.0); MEAN CORPUSCULAR HGB CONC 29.8 g/dl (32.0-36.5); MEAN CORPUSCULAR VOLUME 98.2 fl (80.0-96.0); PLATELET COUNT, AUTOMATED 262 10^3/uL (150-450); RED BLOOD COUNT 3.28 10^6/uL (4.30-6.10); WHITE BLOOD COUNT 15.8 10^3/uL (4.0-10.0)
[2019-07-17 06:58] LABS: ALBUMIN 1.9 GM/DL (3.2-5.2); CALCIUM LEVEL 8.9 MG/DL (8.8-10.2); CREATININE FOR GFR 1.64 MG/DL (0.70-1.30); GLOMERULAR FILTRATION RATE 44.1 (>42); PHOSPHORUS LEVEL 2.6 MG/DL (2.5-4.9)
--- NOTE | 2019-07-17 07:41 | IPN ---
DATE OF VISIT: 07/16/2019 Mr. Higgins is seen this morning on his bedside. A speech therapist is working with him right now trying to clean his mouth and evaluate him for swallowing. He has been nothing by mouth over the weekend due to problems on Tuesday as he could not swallow his breakfast very well and was pocketing the food in his mouth. She wants to go home and wants to start drinking and eating normal food. He has remained tachycardiac though blood pressure has been somewhat high. He is currently receiving total parenteral nutrition (TPN). PHYSICAL EXAMINATION: Temperature 99 degrees Fahrenheit, heart rate 127 per minute and respiratory rate 20 per minute. Blood pressure 168/76 mmHg and oxygen saturation 98% on room air. His head is atraumatic. Neck is supple and jugular venous distention (JVD) difficult to be assessed. Heart sounds are tachycardiac. Lungs with diminished breath sounds at bases and bibasilar crackles. Abdomen soft, nontender and bowel sounds are normal. Colostomy is functioning. Extremities without any cyanosis or clubbing. He has a PICC line in his right upper extremity. Neurologically he is awake, alert and without focal deficit. Today's labs show WBC count 14.6, hemoglobin 9.4 and hematocrit 29.7. Platelets 212. Sodium is down to 156, potassium 3.9, CO2 24, BUN 44 and creatinine 1.63. Glucose is 225 and calcium 8.9. His C-reactive protein is 16.4. PROBLEMS: 1. Acute renal failure superimposed on chronic kidney disease. Slight improvement in kidney function noticed over last 24 hours. No urgent need for dialysis. 2. Hypernatremia. His sodium level is slightly better today and he remains on TPN at 75 mL per hour. Speech therapist is evaluating him and if he can swallow he can resume his diet in addition to TPN. 3. Anemia. His anemia is essentially stable and no changes are being made today. 4. Tachycardia and hypertension. I am increasing his metoprolol dose to 50 mg twice a day and will increase it further as needed. 5. Generalized weakness and deconditioning. The patient is still very weak and continues with physical therapy.
[2019-07-17 07:47] VITALS: BP 168/91
[2019-07-17] MEDS: FERROUS SULFATE 325MG TAB PO SCH ×2 (09:00→20:14)
[2019-07-17] MEDS: FOLIC ACID 1 MG TAB PO SCH (09:00)
[2019-07-17] MEDS: busPIRone 5 MG TAB PO SCH ×2 (09:00→20:13)
[2019-07-17] MEDS: ASPIRIN 81 MG CHEW TABLET PO SCH (09:00)
[2019-07-17] MEDS: VITAMIN D 1,000 INTERNATIONAL UNITS TABLET PO SCH (09:00)
[2019-07-17] MEDS: propylthiouraciL 50 MG TAB PO SCH ×2 (09:00→20:14)
[2019-07-17] MEDS: MAGNESIUM OXIDE 400 MG TAB (MAG-OX) PO SCH ×2 (09:00→20:14)
[2019-07-17] MEDS: METOPROLOL TART 25 MG TABLET PO SCH ×2 (09:00→20:14)
[2019-07-17] MEDS: PANTOPRAZOLE 40MG INJ (PROTONIX) (C9113) IV SCH (10:30)
[2019-07-17] MEDS: DOXYCYCLINE HYCLATE 100 MG in D5W MINI-BAG PLUS 100 ML IV SCH ×2 (10:32→21:10)
[2019-07-17] MEDS: VANICREAM MOISTURIZING SKIN CREAM 113GM TUBE TOP SCH ×2 (10:33→21:10)
[2019-07-17 10:48] LABS: C REACTIVE PROTEIN QUANTITATIV 16.3 MG/DL (0.00-0.30)
[2019-07-17 12:00] VITALS: BP 168/78
[2019-07-17] MEDS: LEVEMIR (INSULIN DETEMIR) 1 UNITS/0.01ML SC SCH ×2 (12:21→21:10)
[2019-07-17 12:25] VITALS: BP 168/78
[2019-07-17 15:49] VITALS: BP 163/77
--- NOTE | 2019-07-17 17:06 | CR ---
DATE OF CONSULTATION: 07/16/2019 INFECTIOUS DISEASE CONSULTATION Asked to consult by hospitalist for evaluation of recurrent fever. HISTORY OF PRESENT ILLNESS: Mr. Ansari is a 74-year-old gentleman who presented to the hospital on 07/04/2019 complaining of fever and shaking chills of a few days duration with poor appetite. The patient was also complaining of urinary incontinence. He was admitted to the intensive care unit (ICU). He was intubated for respiratory failure in the setting of acute kidney injury and chronic kidney disease. The patient underwent dialysis. He was on pressors with Levophed from 07/05/2019 to 07/07/2019. He was treated with hydrocortisone 50 mg every 8 hours. He is on chronic prednisone 5 mg daily for chronic obstructive pulmonary disease (COPD). The patient was also noted to have a rash, which was a diffuse erythroderma. He had been on Keflex for presumptive cellulitis from 06/26/2019. The patient also has a history of gout for which he takes allopurinol. On admission, he was treated with IV Zosyn from 07/04/2019 to 07/10/2019 for presumed septic shock, although no source of infection was described in the progress reports. I reviewed Dr. Guzman' and nephrology notes. On 07/10/2019, the patient had recurrent fever, and he was switched to IV meropenem, fluconazole was added. The patient has received so far 7 days of meropenem and fluconazole, and he had finished 7 days of Zosyn. Since he has been nothing by mouth, he has not been taking his prednisone and has been off hydrocortisone since 07/08/2019. Today the patient has no complaints. No nausea, vomiting or diarrhea. He has a colostomy in the left lower quadrant with no increased stools. He has no chest pain or shortness of breath. No worsening rash even though he is very dry and scaly all over. He does complain of toe pain, which is new. He had not told anybody of the fact that his right toe was hurting. PAST MEDICAL HISTORY: His past medical history significant for diabetes mellitus, hypertension, COPD, hyperthyroidism - on propylthiouracil, chronic kidney disease stage III requiring hemodialysis this hospitalization, history of gout - on allopurinol, COPD - on chronic prednisone 5 mg daily and nebs, bowel ischemia. Restless leg syndrome, hyperlipidemia, gastroesophageal reflux disease, diabetic neuropathy. PAST SURGICAL HISTORY: Bowel resection, status post colostomy on the left side, hip surgery, appendectomy, cholecystectomy. SOCIAL HISTORY: He quit smoking over 50 years ago. He denies alcohol or drug use. He lives with his . FAMILY HISTORY: Negative. ALLERGIES: QUINOLONES - hives. ZITHROMAX - hives. TOBRAMYCIN, IBUPROFEN, ZOLPIDEM. MEDICATIONS: - allopurinol 300 mg daily - amitriptyline 25 mg nightly - amlodipine 5 mg daily - ascorbic acid 500 mg three times a day - aspirin 81 mg daily - atenolol 75 mg daily - BuSpar 15 mg twice a day - vitamin D3 5000 units daily - citalopram 20 mg daily - ferrous sulfate 325 mg twice a day - vitamin B12 1000 mcg three times a day - folic acid 1 mg daily - furosemide 40 mg daily - gabapentin 300 mg by mouth nightly - lisinopril 10 mg by mouth daily - magnesium oxide 800 mg by mouth twice a day - metformin 500 mg twice a day - omeprazole 40 mg daily - prednisone 5 mg by mouth daily - PTU 50 mg in the morning and 25 mg nightly - Rozerem 8 mg by mouth nightly - Xarelto 10 mg by mouth daily - Requip 4 mg by mouth nightly - simvastatin 20 mg by mouth nightly - fluconazole 200 mg IV every 24 hours, day #7 - meropenem 1 gram IV every 12 hours, day #7. LABORATORY: On admission, white count was 11.7 on 07/04/2019, down to 8.5 on 07/06/2019 and now he has had an increased white count up to 29,000 on 07/09/2019, but the patient had received hydrocortisone 50 mg every 8 hours and currently he is up to 14.6. Hemoglobin 9.4, hematocrit 29.7, platelets 212. Sodium 156, potassium 3.9, chloride 127, bicarbonate 25, BUN 44, creatinine 1.63, glucose 225, calcium 8.9, bilirubin 0.7, AST 12, ALT 12, alkaline phosphatase 97, CRP 16.4 up from 6.56. Blood cultures on 07/04/2019 two sets were negative. Respiratory panel was negative. 07/09/2019 GI panel was negative. Urine culture on 07/09/2019 had yeastlike organism over 100,000. Blood cultures on 07/09/2019 two sets were negative and blood culture on 07/15/2019 no growth after 24 hours. Urinalysis had too numerous to count white cells and red cells on 07/09/2019; on 07/15/2019, has only 5 white cells and 1 red cell. PHYSICAL EXAM: Pleasant 74-year-old man frustrated because of feeling dry and thirsty, in no acute distress. Heart: Normal S1, S2. No murmurs appreciated. No rubs or rhonchi. Lungs: Diminished breath sounds but clear. No wheezes, rales or rhonchi. Abdomen: Soft, nontender. No hepatosplenomegaly. Left lower quadrant colostomy with watery greenish stools. Back: No costovertebral angle (CVA) or lumbosacral tenderness. Extremities: Dry, scaly, +1 pitting edema. His skin has diffuse scaling with diffuse erythroderma and hands are peeling bilaterally with scaling. He has onycholysis of both thumbs with ridges, suspicious for probably psoriasis. Right big toe tender to touch, warm and swollen. Oropharynx dry with bloody sputum in the back of his throat, very dry mucosa. No thrush. Neurologic Exam: Alert and oriented times three. Motor strength normal, bilaterally symmetrical. IMPRESSION: This is a 74-year-old gentleman admitted with presumptive septic shock, although the source of infection was never found. His chest x-ray did not show infiltrates. He was intubated and was on pressors for 48 hours. He was treated with IV Zosyn for 7 days. Then developed another fever. He was switched to IV meropenem and fluconazole for 7 days, Urine culture more than 100,000 Johana yeastlike organism and urinalysis had many white cells. Currently the only symptom the patient has is right toe pain and an acute gouty flare-up, which would explain his white count as well as his fever. PLAN: Discontinue IV meropenem and fluconazole. The patient has finished a 7-day course of treatment for presumptive fungal urinary tract infection. He has finished a 2-week course for aspiration pneumonia with 7 days of Zosyn and 7 days of meropenem. I do not see any need for more broad-spectrum antibiotics. Restart his prednisone or switched to Solu-Medrol 20 mg IV daily for 3-5 days until gout flare-up resolves . His allopurinol was held ? due to the rash, which is a diffuse erythroderma and scaling. I would suggest obtaining a dermatology consultation. Eucerin cream has been applied to his entire body twice a day, but the patient will need a followup with dermatology inpatient or outpatient consultation. At this point, I do not see any focus of infection, and I would not recommend any further antibiotics. Chest x-ray has been reviewed and was done on 07/05/2019, showed improved plate-like atelectasis at the left base with no new infiltrate. Pulmonary vasculature is not increased. MTDD
[2019-07-17] MEDS: methylPREDNISolone INJ 40 MG/1 ML VIAL (J2920) IV SCH (17:59)
[2019-07-17] MEDS ORDERED: POTASSIUM CHLORIDE IV SCH ×4 (18:00)
[2019-07-17] MEDS ORDERED: HumaLOG INSULIN (NovoLOG) PER UNIT SC SCH (18:00)
[2019-07-17] MEDS ORDERED: FAT EMULSION IV 20% 500 ML IV SCH (18:00)
[2019-07-17] MEDS ORDERED: POTASSIUM PHOSPHATE IV SCH ×4 (18:00)
[2019-07-17] MEDS ORDERED: [UNRECOGNIZED DRUG - OTHER] IV SCH ×4 (18:00)
--- NOTE | 2019-07-17 18:41 | IPN ---
DATE: 07/17/2019 Mr. Higgins is seen this morning on his bedside. He is sitting in the chair at the time of my visit. Nursing staff reports that he did have another evaluation by speech therapist and was able to swallow his applesauce. The patient wants to eat pizza today. He is quite frustrated and wants to go home as soon as possible. He remains on total parenteral nutrition (TPN) as he was not taking much by mouth. In fact, he has been nothing by mouth for last few days. Yesterday, his metoprolol dose was increased and his tachycardia has improved. The patient denies any fever or chills. He is oxygenating well on room air and does not require any supplemental oxygen. PHYSICAL EXAMINATION: Temperature 98 degrees Fahrenheit, heart rate 120 per minute and respiratory rate 20 per minute. Blood pressure 168/90 mmHg and oxygen saturation 98% on room air. Head is atraumatic. Neck is supple and JVD difficult to be assessed. Lungs: Have few basilar rales bilaterally. Heart: Sounds are tachycardiac and without a pericardial friction rub. Abdomen: Soft and nontender and colostomy is functioning. Extremities have no cyanosis or clubbing. Neurologically, he is awake and at his baseline mentation. He does not have any neurological deficit. Today's, labs show white blood cell (WBC) count 15.8, hemoglobin 9.6 and hematocrit 32.2. Platelets 262. Sodium 153, potassium 5.0, chloride 125, CO2 21, BUN 56 and creatinine 1.64. Glucose 439 and calcium 8.9. C-reactive protein is 16.3 and albumin 1.9. PROBLEMS: 1. Acute renal failure superimposed on chronic kidney disease. His acute renal failure has resolved and kidney function has leveled off. This is probably his baseline function as it has not changed much over last several days. The patient does not have any uremic symptoms and volume status is well-compensated. 2. Hypernatremia. Slight improvement noticed over last 24 hours. He remains on total parenteral nutrition (TPN) without any sodium minute. We will continue with the same and recheck his electrolytes tomorrow. 3, Hyperglycemia. This is related to TPN and the patient will continue with coverage per sliding scale every 6 hours. 4. Nutrition. The patient has been nothing by mouth as he was unable to swallow and remains on TPN. Special formula TPN orders are being written. Now, he has been advised by speech therapist that he can swallow, so will see how he does. 5. Anemia. His anemia has been stable and does not need any urgent intervention. 6. 6. Generalized weakness and deconditioning. The patient remains very weak and will require further therapy.
--- NOTE | 2019-07-17 19:14 | IPNPDOC ---
Date Seen The patient was seen on 07/17/19. Progress Note HISTORY OF PRESENT ILLNESS: 74-year-old male with past medical history of diabetes mellitus, hypertension, COPD, hyperthyroidism, chronic kidney disease presents to the emergency room with shaking of his arms and malaise. Patient was admitted 1 month ago for right hip fracture status post mechanical fall, presented to emergency room 1 week ago with cellulitis, was advised to be admitted by emergency room staff but patient refused to be admitted and went home. Patient has a history of signing out AMA. Patient currently reports he has had poor oral intake for the past few days, chills and fever, urinary incontinence. He denies any chest pain, nausea, vomiting, abdominal pain or diarrhea. 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 07/17/2019 Patient has been downgraded to PCU since last time I saw him, currently resting in chair, comfortable, without any complaints, frustrated and wishing to go home, but understand why he needs to stay here. He has failed his swallow evaluation multiple times, underwent repeat swallow evaluation today and is allowed pured diet. He remains on TPN, denies shortness of breath, chest pain, nausea, vomiting, abdominal pain or diarrhea. PHYSICAL EXAMINATION: VITAL SIGNS: Please see below. GENERAL: No distress HEENT: Right eye with subconjunctival hemorrhage, moist mucous membranes NECK: Supple CARDIOVASCULAR EXAMINATION: Tachycardic RESPIRATORY EXAMINATION: Scattered rhonchi ABDOMINAL EXAMINATION: Soft, nondistended, positive bowel sounds, ostomy with good output EXTREMITIES: Range of motion intact SKIN: Scattered erythema NEUROLOGICAL EXAMINATION: Calm and cooperative LABORATORY DATA: See below. MICROBIOLOGY: Please see below. ASSESSMENT: 74-year-old male with past medical history of type please mellitus, hypertension, COPD, hypothyroidism and chronic kidney disease was admitted for septic shock and acute renal failure, now downgraded to PCU. PLAN: 1. Acute on chronic kidney disease Initially requiring CRRT in the ICU, renal function has been improving gradually, now stabilized, likely at baseline, nephrology following. 2. Hypernatremia. Possibly related to normal saline infusion, improving, currently on TPN without any sodium, will monitor, will consider D5W if continues to worsen. 3. Dysphasia. As failed swallow eval, multiple times, was pocketing food in his mouth over the weekend, reevaluated by speech therapy today, placed on pured diet, will advance as tolerated, continue TPN for now. 4. Septic shock Resolved, initially required vasopressors in the ICU, status post broad- spectrum IV antibiotics, now stable. Infectious etiology unknown, questionable legionnaires, started on doxycycline, ID following. 5. Respiratory failure. Resolved, was intubated and placed on mechanical ventilation in the ICU, now on room air without complaints. 6. Diabetes mellitus. Hold metformin, sliding still insulin every 6 hours, blood glucose elevated due to TPN, started Levemir 10 units twice a day. 7. Hyperthyroidism. Continue propylthiouracil DVT prophylaxis: Heparin subcutaneous GI prophylaxis: PPI VS, I&O, 24H, Fishbone Vital Signs/I&O Vital Signs Date Time Temp Pulse Resp B/P (MAP) Pulse Ox O2 Delivery O2 Flow Rate FiO2 07/17/19 15:49 96.9 118 20 163/77 (105) 96 Room Air 07/11/19 05:01 1.0 I&O- Last 24 Hours up to 6 AM 07/17/19 06:00 Intake Total 1740 ml Output Total 1550 ml Balance 190 ml Laboratory Data 24H LABS Laboratory Tests 2 07/16/19 23:55: Bedside Glucose (Misc Panel) 356H 07/17/19 05:11: Bedside Glucose (Misc Panel) 371H 07/17/19 05:39: Nucleated Red Blood Cells % (auto) 0.0, Anion Gap 7L, Glomerular Filtration Rate 44.1, Calcium Level 8.9, Phosphorus Level 2.6#, C-Reactive Protein, Quantitative 16.30H, Albumin 1.9L 07/17/19 07:05: Bedside Glucose (Misc Panel) 311H 07/17/19 12:00: Bedside Glucose (Misc Panel) 322H 07/17/19 17:39: Bedside Glucose (Misc Panel) 351H CBC/BMP Laboratory Tests 07/17/19 05:39 Microbiology Microbiology 07/15/19 Blood Culture - Preliminary, Resulted No Growth after 48 hours. All Specime... 07/09/19 Blood Culture - Final, Complete NO GROWTH AFTER 5 DAYS 07/09/19 Blood Culture - Final, Complete NO GROWTH AFTER 5 DAYS 07/09/19 Urine Culture - Final, Complete Yeast Like Organism 07/09/19 Gastrointestinal Tract Panel (PCR) - Final, Complete SHARLA LUI MD Jul 17, 2019 19:14
[2019-07-17 20:00] VITALS: BP 165/73
[2019-07-17] MEDS: RAMELTEON 8 MG TAB (ROZEREM) PO SCH (20:14)
[2019-07-17] MEDS: SIMVASTATIN 20 MG TAB PO SCH (20:14)
--- NOTE | 2019-07-17 23:15 | IPN ---
DATE: 07/17/2019 Mr. Higgins is frustrated because he wants to eat. He also wants to get up and walk. He is sitting in his chair. He denies any fever or chills. No nausea, vomiting or diarrhea. No abdominal pain. Temperature is 96.9, maximum temperature (T max) yesterday was 100.2. He still feels much better since he received Solu-Medrol. Temperature is 96.9, pulse 118, respirations 20, blood pressure 163/77, oxygen saturation (O2 sat) 96% on room air. Heart: Normal S1, S2, tachycardiac. Lungs: Decreased breath sounds at the bases. Decreased air entry. A few crackles. Abdomen: Soft, nontender. No hepatosplenomegaly. Colostomy left lower quadrant, well functioning. Extremities: No clubbing or cyanosis. He has a peripherally inserted central catheter (PICC) line in the right upper extremity. Right big toe - slight erythema has decreased. Skin: Has diffuse erythema with scaling, improved since he has used moisturizer. Urine Legionella antigen is positive. White count 15.8, hemoglobin 9.6, hematocrit 32.2, platelets 262. Sodium 153, potassium 5, chloride 125, bicarbonate 21, BUN 56, creatinine 1.64, glucose 439, calcium 8.9, CRP 16.3 and uric acid was 10.1. IMPRESSION: 1. 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 The patient has hyperuricemia, and his allopurinol has been on hold. 2. Diffuse erythemoderma. Consult dermatology. I am not sure whether this was related to his Keflex prescription before admission or his allopurinol that was discontinued. 3. Legionnaire's disease. The patient has a positive urinary antigen, although clinically he does not have a cough or shortness of breath, is at baseline. His chest x-ray showed no acute infiltrate. Will obtain sputum culture for Legionnaire's disease and start doxycycline 100 mg every 12 hours for 7 days. PLAN: If the patient is tolerating by mouth, you can switch doxycycline from IV to by mouth 100 mg twice a day for 7 days. He is not very symptomatic. Treat his gout with IV Solu-Medrol until symptoms resolve 3-5 days.
[2019-07-18] VITALS: BP 145/66
[2019-07-18] MEDS: HumaLOG INSULIN (NovoLOG) PER UNIT SC SCH ×4 (00:29→16:51)
[2019-07-18] MEDS: IPRATROPIUM 0.5MG/ALBUTEROL 2.5MG INH SOL UD 3ML (DUONEB)(J7620) NEB SCH ×4 (02:00→19:31)
[2019-07-18 04:00] VITALS: BP 154/71
[2019-07-18] MEDS: METOPROLOL 5 MG/5 ML VIAL IV SCH ×2 (04:25→10:00)
[2019-07-18] MEDS: SODIUM CHLORIDE 0.9% INJ 10 ML SYR IV SCH ×2 (04:25→18:26)
[2019-07-18] MEDS: NYSTATIN 500,000 U/5 ML SUSP UDC SS SCH ×4 (06:00→16:51)
[2019-07-18] MEDS: HEPARIN SOD (PORCINE) 5000 UNITS/ML VIAL SQ SCH ×3 (06:29→20:40)
[2019-07-18 06:36] LABS: HEMATOCRIT 29.9 % (42.0-52.0); HEMOGLOBIN 9.2 g/dl (13.5-17.5); MEAN CORPUSCULAR HGB CONC 30.8 g/dl (32.0-36.5); MEAN CORPUSCULAR VOLUME 97.4 fl (80.0-96.0); PLATELET COUNT, AUTOMATED 279 10^3/uL (150-450); RED BLOOD COUNT 3.07 10^6/uL (4.30-6.10); WHITE BLOOD COUNT 14.8 10^3/uL (4.0-10.0)
[2019-07-18 07:07] LABS: ALBUMIN 1.9 GM/DL (3.2-5.2); CREATININE FOR GFR 1.61 MG/DL (0.70-1.30); PHOSPHORUS LEVEL 3.7 MG/DL (2.5-4.9); POTASSIUM SERUM 5.5 MEQ/L (3.5-5.1)
[2019-07-18 08:00] VITALS: BP 160/68
[2019-07-18] MEDS: ASPIRIN 81 MG CHEW TABLET PO SCH ×2 (09:00→10:26)
[2019-07-18] MEDS: busPIRone 5 MG TAB PO SCH ×3 (09:00→20:58)
[2019-07-18] MEDS: MAGNESIUM OXIDE 400 MG TAB (MAG-OX) PO SCH ×3 (09:00→20:39)
[2019-07-18] MEDS: propylthiouraciL 50 MG TAB PO SCH ×3 (09:00→20:58)
[2019-07-18] MEDS: FOLIC ACID 1 MG TAB PO SCH ×2 (09:00→10:26)
[2019-07-18] MEDS: FERROUS SULFATE 325MG TAB PO SCH ×2 (09:00→20:38)
[2019-07-18] MEDS: METOPROLOL TART 25 MG TABLET PO SCH ×3 (09:00→20:40)
[2019-07-18] MEDS: VITAMIN D 1,000 INTERNATIONAL UNITS TABLET PO SCH (09:00)
[2019-07-18] MEDS: VANICREAM MOISTURIZING SKIN CREAM 113GM TUBE TOP SCH ×2 (09:29→20:59)
[2019-07-18] MEDS: PANTOPRAZOLE 40MG INJ (PROTONIX) (C9113) IV SCH (09:29)
[2019-07-18] MEDS: LEVEMIR (INSULIN DETEMIR) 1 UNITS/0.01ML SC SCH (09:29)
[2019-07-18] MEDS: DOXYCYCLINE HYCLATE 100 MG in D5W MINI-BAG PLUS 100 ML IV SCH (09:30)
[2019-07-18] MEDS ORDERED: SALIVA SUBSTITUTE(MOUTHKOTE) BTL MT PRN (09:45)
[2019-07-18] MEDS: D5W 1,000 ML IV SCH (14:31)
[2019-07-18 16:00] VITALS: BP 168/74
[2019-07-18] MEDS: methylPREDNISolone INJ 40 MG/1 ML VIAL (J2920) IV SCH (18:25)
--- NOTE | 2019-07-18 19:26 | IPNPDOC ---
Date Seen The patient was seen on 07/18/19. Progress Note HISTORY OF PRESENT ILLNESS: 74-year-old male with past medical history of diabetes mellitus, hypertension, COPD, hyperthyroidism, chronic kidney disease presents to the emergency room with shaking of his arms and malaise. Patient was admitted 1 month ago for right hip fracture status post mechanical fall, presented to emergency room 1 week ago with cellulitis, was advised to be admitted by emergency room staff but patient refused to be admitted and went home. Patient has a history of signing out AMA. Patient currently reports he has had poor oral intake for the past few days, chills and fever, urinary incontinence. He denies any chest pain, nausea, vomiting, abdominal pain or diarrhea. 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 07/17/2019 Patient has been downgraded to PCU since last time I saw him, currently resting in chair, comfortable, without any complaints, frustrated and wishing to go home, but understand why he needs to stay here. He has failed his swallow evaluation multiple times, underwent repeat swallow evaluation today and is allowed pured diet. He remains on TPN, denies shortness of breath, chest pain, nausea, vomiting, abdominal pain or diarrhea. 07/18/19 Comfortable in chair, wants to go home, no new complaints. He is tolerating pureed diet, TPN discontinued. He denies any SOB, CP, N/V, abdominal pain or diarrhea. PHYSICAL EXAMINATION: VITAL SIGNS: Please see below. GENERAL: No distress HEENT: Right eye with subconjunctival hemorrhage, moist mucous membranes NECK: Supple CARDIOVASCULAR EXAMINATION: Tachycardic RESPIRATORY EXAMINATION: Scattered rhonchi ABDOMINAL EXAMINATION: Soft, nondistended, positive bowel sounds, ostomy with good output EXTREMITIES: Range of motion intact SKIN: Scattered erythema NEUROLOGICAL EXAMINATION: Calm and cooperative LABORATORY DATA: See below. MICROBIOLOGY: Please see below. ASSESSMENT: 74-year-old male with past medical history of type please mellitus, hypertension, COPD, hypothyroidism and chronic kidney disease was admitted for septic shock and acute renal failure, now downgraded to PCU. PLAN: 1. Acute on chronic kidney disease Initially requiring CRRT in the ICU, renal function has been improving gradually, now stabilized, likely at baseline, nephrology following. 2. Hypernatremia. Possibly related to normal saline infusion, TPN discontinued, started on D5W. 3. Dysphasia. has failed swallow eval multiple times, reevaluated by speech therapy, placed on pured diet, will advance as tolerated. 4. Septic shock Resolved, initially required vasopressors in the ICU, status post broad- spectrum IV antibiotics, now stable. Continue Doxycycline for Legionnaires's, ID following. 5. Respiratory failure. Resolved, was intubated and placed on mechanical ventilation in the ICU, now on room air without complaints. 6. Diabetes mellitus. Hold metformin, sliding still insulin every 6 hours, Levemir decreased to 5 units qHS now that TPN has been discontinued. 7. Hyperthyroidism. Continue propylthiouracil DVT prophylaxis: Heparin subcutaneous GI prophylaxis: PPI VS, I&O, 24H, Fishbone Vital Signs/I&O Vital Signs Date Time Temp Pulse Resp B/P (MAP) Pulse Ox O2 Delivery O2 Flow Rate FiO2 07/18/19 16:00 97.0 110 21 168/74 (105) 94 Room Air I&O- Last 24 Hours up to 6 AM 07/18/19 06:00 Intake Total 2215 ml Output Total 1000 ml Balance 1215 ml Laboratory Data 24H LABS Laboratory Tests 2 07/18/19 00:26: Bedside Glucose (Misc Panel) 350H 07/18/19 05:56: Nucleated Red Blood Cells % (auto) 0.0, Anion Gap 8, Glomerular Filtration Rate 45.0, Calcium Level 9.0, Phosphorus Level 3.7#, Albumin 1.9L 07/18/19 06:18: Bedside Glucose (Misc Panel) 274H 07/18/19 11:04: Bedside Glucose (Misc Panel) 309H 07/18/19 16:37: Bedside Glucose (Misc Panel) 155H CBC/BMP Laboratory Tests 07/18/19 05:56 Microbiology Microbiology 07/15/19 Blood Culture - Preliminary, Resulted No Growth after 72 hours. All specime... 07/09/19 Blood Culture - Final, Complete NO GROWTH AFTER 5 DAYS 07/09/19 Blood Culture - Final, Complete NO GROWTH AFTER 5 DAYS 07/09/19 Urine Culture - Final, Complete Yeast Like Organism 07/09/19 Gastrointestinal Tract Panel (PCR) - Final, Complete SHARLA LUI MD Jul 18, 2019 19:26
[2019-07-18 20:00] VITALS: BP 147/67
[2019-07-18] MEDS: RAMELTEON 8 MG TAB (ROZEREM) PO SCH (20:38)
[2019-07-18] MEDS: SIMVASTATIN 20 MG TAB PO SCH (20:40)
[2019-07-18] MEDS: DOXYCYCLINE HYCLATE 100 MG TAB PO SCH (20:40)
[2019-07-18] MEDS ORDERED: LEVEMIR (INSULIN DETEMIR) 1 UNITS/0.01ML SC SCH (21:00)
[2019-07-18 23:59] VITALS: BP 140/81
[2019-07-19] MEDS: IPRATROPIUM 0.5MG/ALBUTEROL 2.5MG INH SOL UD 3ML (DUONEB)(J7620) NEB SCH ×4 (00:51→21:36)
[2019-07-19] MEDS: D5W 1,000 ML IV SCH (00:56)
[2019-07-19 04:00] VITALS: BP 162/79
[2019-07-19 05:56] LABS: HEMATOCRIT 30.9 % (42.0-52.0); HEMOGLOBIN 9.3 g/dl (13.5-17.5); MEAN CORPUSCULAR HEMOGLOBIN 29.5 pg (27.0-33.0); MEAN CORPUSCULAR HGB CONC 30.1 g/dl (32.0-36.5); MEAN CORPUSCULAR VOLUME 98.1 fl (80.0-96.0); PLATELET COUNT, AUTOMATED 294 10^3/uL (150-450); RED BLOOD COUNT 3.15 10^6/uL (4.30-6.10); WHITE BLOOD COUNT 11.6 10^3/uL (4.0-10.0)
[2019-07-19 06:03] LABS: ALBUMIN 2.3 GM/DL (3.2-5.2); CALCIUM LEVEL 9.1 MG/DL (8.8-10.2); CREATININE FOR GFR 1.6 MG/DL (0.70-1.30); GLOMERULAR FILTRATION RATE 45.3 (>42); PHOSPHORUS LEVEL 4.9 MG/DL (2.5-4.9); POTASSIUM SERUM 4.9 MEQ/L (3.5-5.1)
[2019-07-19] MEDS: HEPARIN SOD (PORCINE) 5000 UNITS/ML VIAL SQ SCH ×3 (06:18→22:06)
[2019-07-19] MEDS: SODIUM CHLORIDE 0.9% INJ 10 ML SYR IV SCH ×2 (06:18→17:42)
[2019-07-19] MEDS: NYSTATIN 500,000 U/5 ML SUSP UDC SS SCH ×5 (06:18→17:42)
[2019-07-19 08:02] VITALS: BP 154/74
[2019-07-19] MEDS: HumaLOG INSULIN (NovoLOG) PER UNIT SC SCH ×4 (09:05→19:51)
[2019-07-19] MEDS ORDERED: D5W 2,000 ML IV SCH (10:00)
[2019-07-19] MEDS: propylthiouraciL 50 MG TAB PO SCH ×2 (10:37→20:05)
[2019-07-19] MEDS: PANTOPRAZOLE 40MG INJ (PROTONIX) (C9113) IV SCH (10:37)
[2019-07-19] MEDS: FERROUS SULFATE 325MG TAB PO SCH ×2 (10:38→20:07)
[2019-07-19] MEDS: VITAMIN D 1,000 INTERNATIONAL UNITS TABLET PO SCH (10:38)
[2019-07-19] MEDS: ASPIRIN 81 MG CHEW TABLET PO SCH (10:39)
[2019-07-19] MEDS: DOXYCYCLINE HYCLATE 100 MG TAB PO SCH ×2 (10:39→20:06)
[2019-07-19] MEDS: METOPROLOL TART 25 MG TABLET PO SCH ×2 (10:41→20:06)
[2019-07-19] MEDS: FOLIC ACID 1 MG TAB PO SCH (10:42)
[2019-07-19] MEDS: MAGNESIUM OXIDE 400 MG TAB (MAG-OX) PO SCH ×2 (10:42→20:06)
[2019-07-19] MEDS: busPIRone 5 MG TAB PO SCH ×2 (10:43→20:06)
[2019-07-19] MEDS: VANICREAM MOISTURIZING SKIN CREAM 113GM TUBE TOP SCH ×2 (10:50→22:05)
[2019-07-19] MEDS ORDERED: DOXY100T PO (11:44)
[2019-07-19 11:58] VITALS: BP 143/71
[2019-07-19] MEDS: LEVEMIR (INSULIN DETEMIR) 1 UNITS/0.01ML SC SCH ×2 (13:26→20:07)
[2019-07-19] MEDS ORDERED: predniSONE 20 MG TAB PO SCH (16:00)
[2019-07-19 16:38] VITALS: BP 140/70
--- NOTE | 2019-07-19 18:19 | IPNPDOC ---
Date Seen The patient was seen on 07/19/19. Progress Note HISTORY OF PRESENT ILLNESS: 74-year-old male with past medical history of diabetes mellitus, hypertension, COPD, hyperthyroidism, chronic kidney disease presents to the emergency room with shaking of his arms and malaise. Patient was admitted 1 month ago for right hip fracture status post mechanical fall, presented to emergency room 1 week ago with cellulitis, was advised to be admitted by emergency room staff but patient refused to be admitted and went home. Patient has a history of signing out AMA. Patient currently reports he has had poor oral intake for the past few days, chills and fever, urinary incontinence. He denies any chest pain, nausea, vomiting, abdominal pain or diarrhea. 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 07/17/2019 Patient has been downgraded to PCU since last time I saw him, currently resting in chair, comfortable, without any complaints, frustrated and wishing to go home, but understand why he needs to stay here. He has failed his swallow evaluation multiple times, underwent repeat swallow evaluation today and is allowed pured diet. He remains on TPN, denies shortness of breath, chest pain, nausea, vomiting, abdominal pain or diarrhea. 07/18/19 Comfortable in chair, wants to go home, no new complaints. He is tolerating pureed diet, TPN discontinued. He denies any SOB, CP, N/V, abdominal pain or diarrhea. 07/19/19 Patient off TPN, tolerating nectar thick diet but is really unhappy about it, wants regular food. Patient also reports issues at home that he has to take care off and wishes to leave today. He is advised that he isn't ready to be discharged yet given his dysphagia, electrolyte abnormalities and severe physical deconditioning; patient understands why he must stay but wishes to leave against medical advice anyway. He was ready to leave twice (once with family and once via a cab) but first his family refused to take him given his current condition and he wasn't able to stand up and walk to be able to leave via a cab; so he has elected to stay for now. Patient's PICC line was removed in anticipation of him leaving AMA. Patient is without any medical complaints at this time, denies SOB, CP, nausea, vomiting, abdominal pain or diarrhea. 10 point review of system is negative except for above. PHYSICAL EXAMINATION: VITAL SIGNS: Please see below. GENERAL: No distress HEENT: Right eye with subconjunctival hemorrhage, moist mucous membranes NECK: Supple CARDIOVASCULAR EXAMINATION: Tachycardic RESPIRATORY EXAMINATION: Scattered rhonchi ABDOMINAL EXAMINATION: Soft, nondistended, positive bowel sounds, ostomy with good output EXTREMITIES: Range of motion intact SKIN: Scattered erythema NEUROLOGICAL EXAMINATION: Calm and cooperative LABORATORY DATA: See below. MICROBIOLOGY: Please see below. ASSESSMENT: 74-year-old male with past medical history of type please mellitus, hypertension, COPD, hypothyroidism and chronic kidney disease was admitted for septic shock and acute renal failure, now downgraded to PCU. PLAN: 1. Acute on chronic kidney disease Initially requiring CRRT in the ICU, renal function has been improving gradually, now stabilized, likely at baseline, nephrology following. 2. Hypernatremia. Possibly related to normal saline infusion, TPN discontinued, was on D5W overnight, hypernatremia improving, D5W discontinued as patient is edematous & his PICC was removed in anticipation of him leaving [place]. 3. Dysphasia. has failed swallow eval multiple times, reevaluated by speech therapy, diet advanced to nectar thick, patient unhappy without dietary restrictions. 4. Septic shock Resolved, initially required vasopressors in the ICU, status post broad- spectrum IV antibiotics, now stable. Continue Doxycycline for Legionnaires's, ID eval appreciated. 5. Respiratory failure. Resolved, was intubated and placed on mechanical ventilation in the ICU, now on room air without complaints. 6. Diabetes mellitus. Hold metformin, sliding still insulin every 6 hours, continue Levemir 7 units BID. 7. Hyperthyroidism. Continue propylthiouracil DVT prophylaxis: Heparin subcutaneous GI prophylaxis: PPI VS, I&O, 24H, Fishbone Vital Signs/I&O Vital Signs Date Time Temp Pulse Resp B/P (MAP) Pulse Ox O2 Delivery O2 Flow Rate FiO2 07/19/19 16:38 97.0 101 20 140/70 (93) 98 Room Air I&O- Last 24 Hours up to 6 AM 07/19/19 06:00 Intake Total 2840 ml Output Total 1050 ml Balance 1790 ml Laboratory Data 24H LABS Laboratory Tests 2 07/18/19 19:37: Bedside Glucose (Misc Panel) 199H 07/18/19 23:52: Bedside Glucose (Misc Panel) 282H 07/19/19 04:42: Nucleated Red Blood Cells % (auto) 0.0, Anion Gap 8, Glomerular Filtration Rate 45.3, Calcium Level 9.1, Phosphorus Level 4.9#, Albumin 2.3#L 07/19/19 12:15: Bedside Glucose (Misc Panel) 322H 07/19/19 17:15: Bedside Glucose (Misc Panel) 244H CBC/BMP Laboratory Tests 07/19/19 04:42 Microbiology Microbiology 07/15/19 Blood Culture - Preliminary, Resulted No Growth after 72 hours. All specime... 07/09/19 Blood Culture - Final, Complete NO GROWTH AFTER 5 DAYS 07/09/19 Blood Culture - Final, Complete NO GROWTH AFTER 5 DAYS 07/09/19 Urine Culture - Final, Complete Yeast Like Organism 07/09/19 Gastrointestinal Tract Panel (PCR) - Final, Complete SHARLA LUI MD Jul 19, 2019 18:19
[2019-07-19 20:00] VITALS: BP 128/65
[2019-07-19] MEDS: RAMELTEON 8 MG TAB (ROZEREM) PO SCH (20:06)
[2019-07-19] MEDS: SIMVASTATIN 20 MG TAB PO SCH (20:06)
--- NOTE | 2019-07-19 22:57 | IPN ---
DATE: 07/18/2019 SUBJECTIVE: The patient was seen and examined at the bedside today morning. He was actually sitting on the sofa. He continues to be on intravenous (IV) total parenteral nutrition (TPN). His renal function is stable. However, he is more acidotic today with a serum bicarbonate of 15. He is hyperkalemic with a potassium of 5.5. He is still persistently hypernatremic. The patient was told that he is supposed to take nectar-thick liquids and pureed fluids. He is not happy about it. He wants to drink his regular consistency coffee, and he wants to drink liquids and he does not want the TPN any more. The patient is otherwise afebrile and hemodynamically stable. OBJECTIVE: Vital signs: Temperature is 97.9 degrees Fahrenheit, blood pressure 160/68, pulse is 115, respiratory of 22, saturating 96% on room air. Intake and output: Urine output recorded is 1.2 liters yesterday 400 mL so far today since overnight. Weight on the bed scale is 86.4 kg. PHYSICAL EXAMINATION: General: The patient is awake, alert, oriented times three, sitting up on the sofa in no apparent distress. Head and neck exam: Extraocular muscles intact. Pupils equally round and reactive to light. Mucous membranes are moist. Neck is supple. There is no jugular venous distention (JVD). Cardiovascular: S1, S2, regular rate, 2+ edema of the bilateral lower extremities. Respiratory: Chest is clear to auscultation bilaterally. Bilateral equal air entry. No rales or rhonchi. Abdomen: Soft, positive bowel sounds. Left lower quadrant colostomy bag was noted. Musculoskeletal: No clubbing or cyanosis. Pulses are 2+. Central nervous system (GUITAR REPAIRER): No focal deficits. Power is 5/5 in all extremities. LAB REVIEW: CBC showed a WBC of 14.8, hemoglobin 9.2, platelets are 279. BMP showed sodium 150, potassium 5.5, chloride 127, bicarbonate 15, BUN 76, creatinine is 1.6; it was 1.6 yesterday as well. Sugar was 280, calcium 9, phosphorus was 3.7, albumin is 1.9. CURRENT INPATIENT MEDICATIONS: The patient's medications were all reviewed by me. He is currently on TPN, which contains potassium. His IV doxycycline has been stopped. He has been started on oral doxycycline 100 mg twice a day. His metoprolol dose has been changed to 250 mg by mouth twice a day. No other change in the medications today as compared with yesterday. ASSESSMENT/PLAN: 1. Acute kidney injury superimposed on chronic kidney disease. His renal function is stable, creatinine is 1.6 today. TPN is being stopped. Fluid hydration will be continued with D5W only. 2. Hypernatremia. It is secondary to use of sodium-containing TPN and inability of the patient to drink water. I have started the patient on IV D5W. 3. Hyperkalemia. It is likely secondary to metabolic acidosis. No need of Kayexalate administration. Stopping that the potassium containing TPN which would help improve the potassium levels. 4. Metabolic acidosis. It is secondary to use of acetate-free TPN. Acidosis would improve by tomorrow morning. TPN has been stopped. 5. Protein-calorie malnutrition. As mentioned above, The patient is able to eat nectar-thick liquids and pureed diet now. TPN is being stopped.
[2019-07-19 23:59] VITALS: BP 134/67
[2019-07-20] MEDS: NYSTATIN 500,000 U/5 ML SUSP UDC SS SCH ×4 (00:04→18:00)
[2019-07-20] MEDS: IPRATROPIUM 0.5MG/ALBUTEROL 2.5MG INH SOL UD 3ML (DUONEB)(J7620) NEB SCH ×4 (02:00→20:49)
[2019-07-20 04:00] VITALS: BP 140/73
[2019-07-20] MEDS: SODIUM CHLORIDE 0.9% INJ 10 ML SYR IV SCH ×2 (05:03→18:00)
[2019-07-20] MEDS: HEPARIN SOD (PORCINE) 5000 UNITS/ML VIAL SQ SCH ×3 (05:07→20:57)
[2019-07-20 05:27] LABS: HEMATOCRIT 33.3 % (42.0-52.0); HEMOGLOBIN 10.3 g/dl (13.5-17.5); MEAN CORPUSCULAR HEMOGLOBIN 29.3 pg (27.0-33.0); MEAN CORPUSCULAR HGB CONC 30.9 g/dl (32.0-36.5); MEAN CORPUSCULAR VOLUME 94.6 fl (80.0-96.0); PLATELET COUNT, AUTOMATED 332 10^3/uL (150-450); RED BLOOD COUNT 3.52 10^6/uL (4.30-6.10); WHITE BLOOD COUNT 13.1 10^3/uL (4.0-10.0)
[2019-07-20 05:49] LABS: ALBUMIN 2.5 GM/DL (3.2-5.2); CALCIUM LEVEL 8.8 MG/DL (8.8-10.2); CREATININE FOR GFR 1.59 MG/DL (0.70-1.30); GLOMERULAR FILTRATION RATE 45.7 (>42); MAGNESIUM LEVEL 1.7 MG/DL (1.8-2.4); PHOSPHORUS LEVEL 4.6 MG/DL (2.5-4.9); POTASSIUM SERUM 5.1 MEQ/L (3.5-5.1)
[2019-07-20] MEDS: HumaLOG INSULIN (NovoLOG) PER UNIT SC SCH ×4 (07:30→20:49)
[2019-07-20 08:00] VITALS: BP 131/66
[2019-07-20] MEDS: LEVEMIR (INSULIN DETEMIR) 1 UNITS/0.01ML SC SCH ×2 (09:37→20:57)
[2019-07-20] MEDS: VITAMIN D 1,000 INTERNATIONAL UNITS TABLET PO SCH (09:37)
[2019-07-20] MEDS: MAGNESIUM OXIDE 400 MG TAB (MAG-OX) PO SCH ×2 (09:37→20:58)
[2019-07-20] MEDS: busPIRone 5 MG TAB PO SCH ×2 (09:37→21:01)
[2019-07-20] MEDS: METOPROLOL TART 25 MG TABLET PO SCH (09:38)
[2019-07-20] MEDS: predniSONE 5 MG TAB PO SCH (09:38)
[2019-07-20] MEDS: ASPIRIN 81 MG CHEW TABLET PO SCH (09:38)
[2019-07-20] MEDS: PANTOPRAZOLE 40MG TAB (PROTONIX) PO SCH (09:38)
[2019-07-20] MEDS: propylthiouraciL 50 MG TAB PO SCH ×2 (09:39→20:56)
[2019-07-20] MEDS: FOLIC ACID 1 MG TAB PO SCH (09:39)
[2019-07-20] MEDS: VANICREAM MOISTURIZING SKIN CREAM 113GM TUBE TOP SCH ×2 (09:39→21:00)
[2019-07-20] MEDS: DOXYCYCLINE HYCLATE 100 MG TAB PO SCH ×2 (09:39→20:58)
[2019-07-20] MEDS: FERROUS SULFATE 325MG TAB PO SCH ×2 (09:39→20:58)
[2019-07-20 16:00] VITALS: BP 134/72
--- NOTE | 2019-07-20 18:34 | IPN ---
DATE: 07/19/2019 SUBJECTIVE: The patient was seen and examined at the bedside today morning. She is sitting in the sofa. I was told by the patient's RN that he has signed the against medical advice (AMA) papers. He does not want to stay in the hospital anymore. He does not want to follow the diet instructions for pureed diet and nectar-thick liquids, and the patient is adamant to go home. His total parenteral nutrition (TPN) was already stopped yesterday. Looking at his basic metabolic panel (BMP), his renal function is stable with a creatinine of around 1.6. Sodium level is improving with the IV D5W given yesterday. OBJECTIVE: Vital signs: Temperature is 96.8 degrees Fahrenheit, blood pressure 143/71, pulse is 93, respiratory rate of 20, saturating 100% on the room air. Intake and output: Urine output recorded is 1150 mL since overnight. Weight in the bed scale is 86.4 kg. PHYSICAL EXAMINATION: GENERAL: The patient is awake, alert, oriented times three, sitting up in the sofa, slightly agitated. No active distress. HEAD AND NECK: Extraocular muscles intact. Pupils equally round and reactive to light. Mucous membranes are moist. Neck is supple. There is no jugular venous distention (JVD). CARDIOVASCULAR: S1, S2, regular rate. Trace edema of the bilateral lower extremities. RESPIRATORY: Chest is clear to auscultation bilaterally. Bilateral equal air entry. No rales or rhonchi. ABDOMEN: Soft. Positive bowel sounds. Nontender. No organomegaly. MUSCULOSKELETAL: No clubbing or cyanosis. Pulses are 2+. CENTRAL NERVOUS SYSTEM: No focal deficit. Power is 5/5 in all extremities. LABORATORY REVIEW: CBC showed WBC of 11.6, hemoglobin 9.3, platelets are 294. BMP showed sodium 148, potassium 4.9, chloride 121, bicarbonate 19, BUN 76, creatinine is 1.6, glucose is 234, calcium is 9.1, phosphorus 4.9. Albumin is 2.3. CURRENT INPATIENT MEDICATIONS: The patient's medications were all reviewed by myself. He was on D5W, which was renewed today morning. Insulin Levemir dose was changed to 7 units subcutaneous twice a day. No other change in the medications today as compared with yesterday. ASSESSMENT AND PLAN: 1. Acute renal failure superimposed on chronic kidney disease. Patient's renal function continues to be stable. Creatinine has been fluctuating at around 1.6. 2. Hyponatremia. He was given IV D5W overnight. Sodium level is improving. Continue to encourage oral hydration. The patient is suppose to be on nectar-thick liquids, but probably he is going to be signing out today. 3. Hyperkalemia. Potassium level is improving now. Hyperkalemia was secondary to potassium in the TPN. 4. Normal anion gap metabolic acidosis. Acidosis secondary to TPN. Bicarbonate level is improving without the need of oral or IV bicarbonate administration. 5. Disposition. The patient is adamant to go home. He has signed the AMA forms. He was advised to followup with nephrology service within 2 weeks after discharge from the hospital.
--- NOTE | 2019-07-20 19:05 | IPN ---
DATE: 07/19/2019 Mr. Higgins is very frustrated with his family. He thinks they took his money from the bank. He wanted to be leave against medical advice but was not able to get up out of bed without assist of three out of his chair. He is tolerating food but mostly pureed foods, but the patient does not like the consistency and therefore refusing to eat. He has been drinking and taking his pills okay. MEDICATIONS: Intravenous (IV) doxycycline has been changed to by mouth doxycycline. He is currently day #3 of doxycycline. LABORATORY DATA: White count 11.6, hemoglobin 9.3, hematocrit 30.9, platelets 294. Sodium 148, potassium 4.9, chloride 121, bicarbonate 19, BUN 76, creatinine 1.62, glucose 234, calcium 9.1, phosphorus 4.9. CRP 16.3. Albumin 2.3. PHYSICAL EXAMINATION: Temperature is 97, pulse 101, respirations 20, blood pressure 140/70, oxygen saturation 98% on room air. HEART: Normal S1, S2. No murmurs. Distant. LUNGS: Few crackles at the left base. No wheezes or rhonchi. Diminished air entry. ABDOMEN: Soft, nontender. No hepatosplenomegaly. EXTREMITIES: Dry, scaly with mild right toe redness. No tenderness. IMPRESSION: 1. Acute gouty arthritis of the right toe, on Solu-Medrol 20 mg IV. The patient was switched to by mouth prednisone. I would consider tapering down to his baseline 10 mg daily tomorrow, which he takes for chronic obstructive pulmonary disease (COPD). 2. History of COPD, stable. The patient states he is at baseline cough and shortness of breath. 3. Legionnaire's disease. The patient had a positive urine legionnaire antigen. He is currently day #3 of by mouth doxycycline, but chest x-ray does not show any new infiltrate but improved plate-like atelectasis, and therefore I would just consider treating him for 7 days. We were not able to obtain a sputum culture for Legionnaire, as patient does not have a productive cough. PLAN: Consider restarting allopurinol (his a uric acid is over 10) and switching to prednisone 10 mg baseline dose tomorrow. Continue doxycycline for 7 days. Currently day #3 out of 7.
[2019-07-20 20:00] VITALS: BP 142/74
--- NOTE | 2019-07-20 20:19 | IPNPDOC ---
Date Seen The patient was seen on 07/20/19. Progress Note HISTORY OF PRESENT ILLNESS: 74-year-old male with past medical history of diabetes mellitus, hypertension, COPD, hyperthyroidism, chronic kidney disease presents to the emergency room with shaking of his arms and malaise. Patient was admitted 1 month ago for right hip fracture status post mechanical fall, presented to emergency room 1 week ago with cellulitis, was advised to be admitted by emergency room staff but patient refused to be admitted and went home. Patient has a history of signing out AMA. Patient currently reports he has had poor oral intake for the past few days, chills and fever, urinary incontinence. He denies any chest pain, nausea, vomiting, abdominal pain or diarrhea. 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 07/17/2019 Patient has been downgraded to PCU since last time I saw him, currently resting in chair, comfortable, without any complaints, frustrated and wishing to go home, but understand why he needs to stay here. He has failed his swallow evaluation multiple times, underwent repeat swallow evaluation today and is allowed pured diet. He remains on TPN, denies shortness of breath, chest pain, nausea, vomiting, abdominal pain or diarrhea. 07/18/19 Comfortable in chair, wants to go home, no new complaints. He is tolerating pureed diet, TPN discontinued. He denies any SOB, CP, N/V, abdominal pain or diarrhea. 07/19/19 Patient off TPN, tolerating nectar thick diet but is really unhappy about it, wants regular food. Patient also reports issues at home that he has to take care off and wishes to leave today. He is advised that he isn't ready to be discharged yet given his dysphagia, electrolyte abnormalities and severe physical deconditioning; patient understands why he must stay but wishes to leave against medical advice anyway. He was ready to leave twice (once with family and once via a cab) but first his family refused to take him given his current condition and he wasn't able to stand up and walk to be able to leave via a cab; so he has elected to stay for now. Patient's PICC line was removed in anticipation of him leaving AMA. Patient is without any medical complaints at this time, denies SOB, CP, nausea, vomiting, abdominal pain or diarrhea. 07/20/2019 Patient seen in the morning, without any complaints, reports that he will be leaving AMA today, has ordered a cold cab. He was reevaluated later in the day, was unable to leave AMA because he was unable to get out of the wheelchair and get into his cab. Patient still adamant about leaving AMA, rearranging alternative means. He denies any shortness of breath, chest pain, nausea, vomiting, abdominal pain or diarrhea at this time. 10 point review of system is negative except for above. PHYSICAL EXAMINATION: VITAL SIGNS: Please see below. GENERAL: No distress HEENT: Right eye with subconjunctival hemorrhage, moist mucous membranes NECK: Supple CARDIOVASCULAR EXAMINATION: S1, S2 RESPIRATORY EXAMINATION: Clear to auscultation ABDOMINAL EXAMINATION: Soft, nondistended, positive bowel sounds, ostomy with good output EXTREMITIES: Range of motion intact SKIN: Scattered erythema NEUROLOGICAL EXAMINATION: Calm and cooperative LABORATORY DATA: See below. MICROBIOLOGY: Please see below. ASSESSMENT: 74-year-old male with past medical history of type please mellitus, hypertension, COPD, hypothyroidism and chronic kidney disease was admitted for septic shock and acute renal failure, now downgraded to PCU. PLAN: 1. Acute on chronic kidney disease Initially requiring CRRT in the ICU, renal function has been improving gradually, now stabilized, likely at baseline, restart Lasix, nephrology following. 2. Hypernatremia. Possibly related to normal saline infusion, TPN discontinued, was on D5W, hypernatremia improving, should improve further with the Lasix. 3. Dysphasia. has failed swallow eval multiple times, reevaluated by speech therapy, diet advanced to nectar thick, patient unhappy without dietary restrictions. 4. Septic shock Resolved, initially required vasopressors in the ICU, status post broad- spectrum IV antibiotics, now stable. Continue Doxycycline for Legionnaires's, ID eval appreciated. 5. Respiratory failure. Resolved, was intubated and placed on mechanical ventilation in the ICU, now on room air without complaints. 6. Diabetes mellitus. Hold metformin, sliding still insulin every 6 hours, continue Levemir 7 units BID. 7. Hyperthyroidism. Continue propylthiouracil 8. Gout. Restarted allopurinol DVT prophylaxis: Heparin subcutaneous GI prophylaxis: PPI VS, I&O, 24H, Fishbone Vital Signs/I&O Vital Signs Date Time Temp Pulse Resp B/P (MAP) Pulse Ox O2 Delivery O2 Flow Rate FiO2 07/20/19 16:00 97.4 104 18 134/72 (92) 99 07/20/19 04:00 Room Air I&O- Last 24 Hours up to 6 AM 07/20/19 06:00 Intake Total 1720 ml Output Total 1415 ml Balance 305 ml Laboratory Data 24H LABS Laboratory Tests 2 07/20/19 05:10: Nucleated Red Blood Cells % (auto) 0.0, Anion Gap 10, Glomerular Filtration Rate 45.7, Calcium Level 8.8, Phosphorus Level 4.6, Magnesium Level 1.7L, Albumin 2.5L 07/20/19 17:18: Bedside Glucose (Misc Panel) 165H CBC/BMP Laboratory Tests 07/20/19 05:10 Microbiology Microbiology 07/15/19 Blood Culture - Final, Complete NO GROWTH AFTER 5 DAYS SHARLA LUI MD Jul 20, 2019 20:19
[2019-07-20] MEDS: METOPROLOL TART 50 MG TAB PO SCH (20:57)
[2019-07-20] MEDS: RAMELTEON 8 MG TAB (ROZEREM) PO SCH (20:58)
[2019-07-20] MEDS: SIMVASTATIN 20 MG TAB PO SCH (20:58)
[2019-07-20 22:36] VITALS: BP 144/93
--- NOTE | 2019-07-20 23:21 | IPN ---
DATE: 07/20/2019 SUBJECTIVE The patient was seen and examined at the bedside today morning. He could not leave yesterday even though he had signed the against medical advice (AMA) forms. He did have the labs done today. He is shows improvement in the renal function. Creatinine is down to 1.53. He persistently has hyponatremia. His IV fluids were stopped yesterday. The patient is still adamant to leave and he reports that he is going to leave the hospital today. OBJECTIVE Vital signs: Temperature is 97.6 degrees Fahrenheit, blood pressure 131/66, pulse is 112, respiratory rate of 20, saturating 94% on room air. Intake and output: Urine output recorded is a 1.7 liters yesterday, 148 mL so far today since overnight. Weight in the bed scale is 86.3. PHYSICAL EXAMINATION General: The patient is awake, alert, oriented times three, sitting up in the bed in no apparent distress. Head and neck examination: Extraocular muscles intact. Pupils equally round and reactive to light. Mucous membranes are moist. Neck is supple. There is no JVD. Cardiovascular: S1, S2, regular rate. 2+ edema of the bilateral lower extremities. Respiratory: Chest is clear to auscultation bilaterally. Bilateral equal air entry. No rales or rhonchi. Abdomen: Soft, positive bowel sounds. Nontender. He has left lower quadrant colostomy bag. Musculoskeletal: No clubbing or cyanosis. Pulses are 2+. MANAGER IMPLEMENTATION: No focal deficit. Power is 5/5 in all extremities. LAB REVIEW: CBC showed WBC of 13.1, hemoglobin 10.3, platelets of 332. BMP showed sodium 148, potassium 5.1, chloride 119, bicarbonate 19, BUN 69, creatinine is 1.5 and glucose 107, magnesium 1.7. CURRENT INPATIENT MEDICATIONS: The patient's medications were all reviewed by me. There is no change in the medications today as compared with yesterday. His Solu-Medrol has been stopped. He has been started on prednisone 5 mg by mouth daily. ASSESSMENT/PLAN 1. Acute renal failure. Patient's renal function continues to improve. Creatinine has been fluctuating around 1.5 to 1.6 now. 2. Hyponatremia. The patient needs to drink more fluid, but he is on nectar-thick liquids. D5W was stopped yesterday because he wanted to sign out against medical advice. 3. Metabolic acidosis. It was secondary to the total parenteral nutrition. His bicarb level has been stable at around 19. No need of oral bicarb administration. 4. Disposition. The patient wants to leave against medical advice. He is going to leave today. He needs to follow up with nephrology within 2 weeks after discharge from the hospital.
[2019-07-21] MEDS: NYSTATIN 500,000 U/5 ML SUSP UDC SS SCH ×5 (00:27→23:32)
[2019-07-21] MEDS: SODIUM CHLORIDE 0.9% INJ 10 ML SYR IV SCH ×2 (01:30→17:17)
[2019-07-21] MEDS: IPRATROPIUM 0.5MG/ALBUTEROL 2.5MG INH SOL UD 3ML (DUONEB)(J7620) NEB SCH ×4 (02:00→18:36)
[2019-07-21] MEDS: HEPARIN SOD (PORCINE) 5000 UNITS/ML VIAL SQ SCH ×3 (05:20→21:41)
[2019-07-21 05:58] LABS: HEMOGLOBIN 10.4 g/dl (13.5-17.5); MEAN CORPUSCULAR HEMOGLOBIN 29.6 pg (27.0-33.0); MEAN CORPUSCULAR HGB CONC 31.5 g/dl (32.0-36.5); PLATELET COUNT, AUTOMATED 294 10^3/uL (150-450); RED BLOOD COUNT 3.51 10^6/uL (4.30-6.10); WHITE BLOOD COUNT 13.4 10^3/uL (4.0-10.0)
[2019-07-21 06:00] VITALS: BP 152/90
[2019-07-21 06:28] LABS: ALBUMIN 2.2 GM/DL (3.2-5.2); CALCIUM LEVEL 8.5 MG/DL (8.8-10.2); CREATININE FOR GFR 1.37 MG/DL (0.70-1.30); GLOMERULAR FILTRATION RATE 54.2 (>42); PHOSPHORUS LEVEL 3.4 MG/DL (2.5-4.9); POTASSIUM SERUM 4.5 MEQ/L (3.5-5.1)
[2019-07-21] MEDS: HumaLOG INSULIN (NovoLOG) PER UNIT SC SCH ×4 (07:30→21:00)
[2019-07-21] MEDS: VITAMIN D 1,000 INTERNATIONAL UNITS TABLET PO SCH (08:34)
[2019-07-21] MEDS: ASPIRIN 81 MG CHEW TABLET PO SCH (08:34)
[2019-07-21] MEDS: FUROSEMIDE 40 MG TAB PO SCH (08:34)
[2019-07-21] MEDS: MAGNESIUM OXIDE 400 MG TAB (MAG-OX) PO SCH ×2 (08:34→21:42)
[2019-07-21] MEDS: busPIRone 5 MG TAB PO SCH ×2 (08:34→21:43)
[2019-07-21] MEDS: PANTOPRAZOLE 40MG TAB (PROTONIX) PO SCH (08:35)
[2019-07-21] MEDS: FERROUS SULFATE 325MG TAB PO SCH ×2 (08:35→21:42)
[2019-07-21] MEDS: METOPROLOL TART 50 MG TAB PO SCH ×2 (08:35→21:42)
[2019-07-21] MEDS: allopurinoL 300 MG TAB PO SCH (08:35)
[2019-07-21] MEDS: predniSONE 5 MG TAB PO SCH (08:35)
[2019-07-21] MEDS: FOLIC ACID 1 MG TAB PO SCH (08:35)
[2019-07-21] MEDS: DOXYCYCLINE HYCLATE 100 MG TAB PO SCH ×2 (08:35→21:42)
[2019-07-21] MEDS: propylthiouraciL 50 MG TAB PO SCH ×2 (08:36→21:42)
[2019-07-21] MEDS: VANICREAM MOISTURIZING SKIN CREAM 113GM TUBE TOP SCH ×2 (08:37→21:43)
[2019-07-21] MEDS ORDERED: D5W 1,000 ML IV SCH (11:00)
[2019-07-21] MEDS: BICITRA 30ML SOLN UDC PO SCH ×3 (12:04→21:41)
[2019-07-21 14:00] VITALS: BP 140/84
--- NOTE | 2019-07-21 19:33 | IPNPDOC ---
Date Seen The patient was seen on 07/21/19. Progress Note HISTORY OF PRESENT ILLNESS: 74-year-old male with past medical history of diabetes mellitus, hypertension, COPD, hyperthyroidism, chronic kidney disease presents to the emergency room with shaking of his arms and malaise. Patient was admitted 1 month ago for right hip fracture status post mechanical fall, presented to emergency room 1 week ago with cellulitis, was advised to be admitted by emergency room staff but patient refused to be admitted and went home. Patient has a history of signing out AMA. Patient currently reports he has had poor oral intake for the past few days, chills and fever, urinary incontinence. He denies any chest pain, nausea, vomiting, abdominal pain or diarrhea. 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 07/17/2019 Patient has been downgraded to PCU since last time I saw him, currently resting in chair, comfortable, without any complaints, frustrated and wishing to go home, but understand why he needs to stay here. He has failed his swallow evaluation multiple times, underwent repeat swallow evaluation today and is allowed pured diet. He remains on TPN, denies shortness of breath, chest pain, nausea, vomiting, abdominal pain or diarrhea. 07/18/19 Comfortable in chair, wants to go home, no new complaints. He is tolerating pureed diet, TPN discontinued. He denies any SOB, CP, N/V, abdominal pain or diarrhea. 07/19/19 Patient off TPN, tolerating nectar thick diet but is really unhappy about it, wants regular food. Patient also reports issues at home that he has to take care off and wishes to leave today. He is advised that he isn't ready to be discharged yet given his dysphagia, electrolyte abnormalities and severe physical deconditioning; patient understands why he must stay but wishes to leave against medical advice anyway. He was ready to leave twice (once with family and once via a cab) but first his family refused to take him given his current condition and he wasn't able to stand up and walk to be able to leave via a cab; so he has elected to stay for now. Patient's PICC line was removed in anticipation of him leaving AMA. Patient is without any medical complaints at this time, denies SOB, CP, nausea, vomiting, abdominal pain or diarrhea. 07/20/2019 Patient seen in the morning, without any complaints, reports that he will be leaving AMA today, has ordered a cold cab. He was reevaluated later in the day, was unable to leave AMA because he was unable to get out of the wheelchair and get into his cab. Patient still adamant about leaving AMA, rearranging alternative means. He denies any shortness of breath, chest pain, nausea, vomiting, abdominal pain or diarrhea at this time. 07/21/19 Patient in bed, sleeping, easily arousable, without complaints, not wishing to leave AMA today. 10 point review of system is negative except for above. PHYSICAL EXAMINATION: VITAL SIGNS: Please see below. GENERAL: No distress HEENT: Right eye with subconjunctival hemorrhage, moist mucous membranes NECK: Supple CARDIOVASCULAR EXAMINATION: S1, S2 RESPIRATORY EXAMINATION: Clear to auscultation ABDOMINAL EXAMINATION: Soft, nondistended, positive bowel sounds, ostomy with good output EXTREMITIES: Range of motion intact SKIN: Scattered erythema NEUROLOGICAL EXAMINATION: Calm and cooperative LABORATORY DATA: See below. MICROBIOLOGY: Please see below. ASSESSMENT: 74-year-old male with past medical history of type please mellitus, hypertension, COPD, hypothyroidism and chronic kidney disease was admitted for septic shock and acute renal failure, now downgraded to PCU. PLAN: 1. Acute on chronic kidney disease Initially requiring CRRT in the ICU, renal function has been improving gradu ally, now stabilized, likely at baseline, restart Lasix, nephrology following. 2. Hypernatremia. Possibly related to normal saline infusion, TPN discontinued, was on D5W, hypernatremia improving, will monitor. 3. Dysphasia. has failed swallow eval multiple times, reevaluated by speech therapy, diet advanced to nectar thick, patient unhappy without dietary restrictions. 4. Septic shock Resolved, initially required vasopressors in the ICU, status post broad- spectrum IV antibiotics, now stable. Continue Doxycycline for Legionnaires's, ID eval appreciated. 5. Respiratory failure. Resolved, was intubated and placed on mechanical ventilation in the ICU, now on room air without complaints. 6. Diabetes mellitus. Hold metformin, sliding still insulin every 6 hours, continue Levemir 5 units qHS. 7. Hyperthyroidism. Continue propylthiouracil 8. Gout. Restarted allopurinol DVT prophylaxis: Heparin subcutaneous GI prophylaxis: PPI VS, I&O, 24H, Fishbone Vital Signs/I&O Vital Signs Date Time Temp Pulse Resp B/P (MAP) Pulse Ox O2 Delivery O2 Flow Rate FiO2 07/21/19 14:00 99.2 104 18 140/84 (102) 92 Room Air I&O- Last 24 Hours up to 6 AM 07/21/19 06:00 Intake Total 1740 ml Output Total 950 ml Balance 790 ml Laboratory Data 24H LABS Laboratory Tests 2 07/20/19 20:14: Bedside Glucose (Misc Panel) 231H 07/21/19 05:39: Nucleated Red Blood Cells % (auto) 0.1H, Anion Gap 9, Glomerular Filtration Rate 54.2, Calcium Level 8.5L, Phosphorus Level 3.4#, Albumin 2.2L 07/21/19 11:25: Bedside Glucose (Misc Panel) 115H 07/21/19 16:37: Bedside Glucose (Misc Panel) 152H CBC/BMP Laboratory Tests 07/21/19 05:39 Microbiology Microbiology 07/15/19 Blood Culture - Final, Complete NO GROWTH AFTER 5 DAYS SHARLA LUI MD Jul 21, 2019 19:33
[2019-07-21] MEDS: SIMVASTATIN 20 MG TAB PO SCH (21:42)
[2019-07-21] MEDS: RAMELTEON 8 MG TAB (ROZEREM) PO SCH (21:43)
[2019-07-21] MEDS: LEVEMIR (INSULIN DETEMIR) 1 UNITS/0.01ML SC SCH (21:43)
[2019-07-21 22:00] VITALS: BP 139/80
[2019-07-22] MEDS: IPRATROPIUM 0.5MG/ALBUTEROL 2.5MG INH SOL UD 3ML (DUONEB)(J7620) NEB SCH ×4 (02:00→21:33)
[2019-07-22 05:11] VITALS: BP 137/80
[2019-07-22] MEDS: NYSTATIN 500,000 U/5 ML SUSP UDC SS SCH (05:17)
[2019-07-22] MEDS: HEPARIN SOD (PORCINE) 5000 UNITS/ML VIAL SQ SCH ×3 (05:18→20:40)
[2019-07-22 05:52] LABS: HEMATOCRIT 32.4 % (42.0-52.0); HEMOGLOBIN 10.2 g/dl (13.5-17.5); MEAN CORPUSCULAR HEMOGLOBIN 29.4 pg (27.0-33.0); MEAN CORPUSCULAR HGB CONC 31.5 g/dl (32.0-36.5); MEAN CORPUSCULAR VOLUME 93.4 fl (80.0-96.0); PLATELET COUNT, AUTOMATED 302 10^3/uL (150-450); RED BLOOD COUNT 3.47 10^6/uL (4.30-6.10); WHITE BLOOD COUNT 11.3 10^3/uL (4.0-10.0)
[2019-07-22 06:18] LABS: CALCIUM LEVEL 8.5 MG/DL (8.8-10.2); CREATININE FOR GFR 1.73 MG/DL (0.70-1.30); GLOMERULAR FILTRATION RATE 41.4 (>42); MAGNESIUM LEVEL 1.4 MG/DL (1.8-2.4); POTASSIUM SERUM 4.1 MEQ/L (3.5-5.1)
[2019-07-22] MEDS: HumaLOG INSULIN (NovoLOG) PER UNIT SC SCH ×4 (07:38→20:41)
[2019-07-22] MEDS: VITAMIN D 1,000 INTERNATIONAL UNITS TABLET PO SCH (08:58)
[2019-07-22] MEDS: busPIRone 5 MG TAB PO SCH ×2 (08:58→20:40)
[2019-07-22] MEDS: propylthiouraciL 50 MG TAB PO SCH ×2 (08:58→20:38)
[2019-07-22] MEDS: ASPIRIN 81 MG CHEW TABLET PO SCH (08:58)
[2019-07-22] MEDS: MAGNESIUM OXIDE 400 MG TAB (MAG-OX) PO SCH ×2 (08:58→20:39)
[2019-07-22] MEDS: DOXYCYCLINE HYCLATE 100 MG TAB PO SCH ×2 (08:59→20:40)
[2019-07-22] MEDS: predniSONE 5 MG TAB PO SCH (08:59)
[2019-07-22] MEDS: PANTOPRAZOLE 40MG TAB (PROTONIX) PO SCH (08:59)
[2019-07-22] MEDS: FERROUS SULFATE 325MG TAB PO SCH ×2 (08:59→20:40)
[2019-07-22] MEDS: allopurinoL 300 MG TAB PO SCH (08:59)
[2019-07-22] MEDS: FOLIC ACID 1 MG TAB PO SCH (08:59)
[2019-07-22] MEDS: FUROSEMIDE 40 MG TAB PO SCH (08:59)
[2019-07-22] MEDS: METOPROLOL TART 50 MG TAB PO SCH ×2 (09:00→20:39)
[2019-07-22] MEDS: BICITRA 30ML SOLN UDC PO SCH ×2 (09:00→20:40)
[2019-07-22] MEDS: VANICREAM MOISTURIZING SKIN CREAM 113GM TUBE TOP SCH ×2 (09:07→20:40)
--- NOTE | 2019-07-22 09:20 | IPN ---
DATE OF SERVICE: 07/21/2019 SUBJECTIVE: The patient was seen and examined at the bedside today morning. He tried to sign out against medical advice yesterday as well. However, he was not able to get from the wheelchair to the car so he was transferred back to the medical-surgical floor. His renal function is improving, creatinine is down to 1.3 today. He continues to be hypernatremic and he is trying to drink more liquids. The patient is refusing the IV fluids. OBJECTIVE: Vital Signs: Temperature is 99.2 degrees Fahrenheit, blood pressure 140/84, pulse is 104, respiratory rate of 18, saturating 92% on room air. Intake and output: Urine output recorded is 850 mL so far today. Weight in the bed scale is not available. PHYSICAL EXAMINATION: General: The patient is awake, alert, oriented times three, laying in bed, in no apparent distress. Head and Neck Exam: Extraocular muscles intact. Pupils equally round and reactive to light. Mucous membranes are moist. Neck is supple. There is no jugular venous distention (JVD). Cardiovascular: S1, S2. Regular rate. 1+ edema of the bilateral lower extremities. Respiratory: Chest is clear to auscultation bilaterally. Bilateral equal air entry. No rales or rhonchi. Abdomen: Soft, obese, positive bowel sounds. Nontender. No organomegaly. Musculoskeletal: No clubbing or cyanosis. Pulses are 2+. TAG MARKER: No focal deficit. Power is 5/5 in all extremities. LAB REVIEW: CBC showed a WBC of 13.4, hemoglobin 10.4, platelets 294. BMP showed sodium 148, potassium 4.5, chloride 119, bicarb is 20, BUN 50, creatinine is 1.37, glucose 67, calcium 8.5, phosphorus 3.4. CURRENT INPATIENT MEDICATIONS: The patient's medications were all reviewed by me. I initially ordered IV D5W, however, the patient refused to have D5W infusion done. I have ordered Bicitra 30 mL by mouth twice a day for a total of six doses. No other change in the medications today as compared with yesterday. Insulin dose has been decreased by the primary team to 5 units subcutaneous at bedtime. ASSESSMENT/PLAN: 1. Acute renal failure. The patient's renal function continues to improve. Creatinine is down to 1.3 today. 2. Hypernatremia. The patient refused the IV fluid. He does not even have an IV line at this time. He was encouraged to drink more liquids orally. 3. Metabolic acidosis. Because of persistent metabolic acidosis and bicarb of 20, I have ordered Bicitra 30 mL twice a day for a total of six doses. 4. Disposition. Renal function continues to improve. Nephrology service is going to sign off at this moment. Please call nephrology service for any help in the management of this patient during this hospitalization.
[2019-07-22 14:00] VITALS: BP 150/77
[2019-07-22] MEDS: RAMELTEON 8 MG TAB (ROZEREM) PO SCH (20:40)
[2019-07-22] MEDS: SIMVASTATIN 20 MG TAB PO SCH (20:40)
[2019-07-22] MEDS: LEVEMIR (INSULIN DETEMIR) 1 UNITS/0.01ML SC SCH (20:41)
[2019-07-22 22:00] VITALS: BP 134/76
--- NOTE | 2019-07-22 23:48 | IPNPDOC ---
Date Seen The patient was seen on 07/22/19. Progress Note HISTORY OF PRESENT ILLNESS: 74-year-old male with past medical history of diabetes mellitus, hypertension, COPD, hyperthyroidism, chronic kidney disease presents to the emergency room with shaking of his arms and malaise. Patient was admitted 1 month ago for right hip fracture status post mechanical fall, presented to emergency room 1 week ago with cellulitis, was advised to be admitted by emergency room staff but patient refused to be admitted and went home. Patient has a history of signing out AMA. Patient currently reports he has had poor oral intake for the past few days, chills and fever, urinary incontinence. He denies any chest pain, nausea, vomiting, abdominal pain or diarrhea. 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 07/17/2019 Patient has been downgraded to PCU since last time I saw him, currently resting in chair, comfortable, without any complaints, frustrated and wishing to go home, but understand why he needs to stay here. He has failed his swallow evaluation multiple times, underwent repeat swallow evaluation today and is allowed pured diet. He remains on TPN, denies shortness of breath, chest pain, nausea, vomiting, abdominal pain or diarrhea. 07/18/19 Comfortable in chair, wants to go home, no new complaints. He is tolerating pureed diet, TPN discontinued. He denies any SOB, CP, N/V, abdominal pain or diarrhea. 07/19/19 Patient off TPN, tolerating nectar thick diet but is really unhappy about it, wants regular food. Patient also reports issues at home that he has to take care off and wishes to leave today. He is advised that he isn't ready to be discharged yet given his dysphagia, electrolyte abnormalities and severe physical deconditioning; patient understands why he must stay but wishes to leave against medical advice anyway. He was ready to leave twice (once with family and once via a cab) but first his family refused to take him given his current condition and he wasn't able to stand up and walk to be able to leave via a cab; so he has elected to stay for now. Patient's PICC line was removed in anticipation of him leaving AMA. Patient is without any medical complaints at this time, denies SOB, CP, nausea, vomiting, abdominal pain or diarrhea. 07/20/2019 Patient seen in the morning, without any complaints, reports that he will be leaving AMA today, has ordered a cold cab. He was reevaluated later in the day, was unable to leave AMA because he was unable to get out of the wheelchair and get into his cab. Patient still adamant about leaving AMA, rearranging alternative means. He denies any shortness of breath, chest pain, nausea, vomiting, abdominal pain or diarrhea at this time. 07/21/19 Patient in bed, sleeping, easily arousable, without complaints, not wishing to leave AMA today. 07/22/19 Patient reiterating that he wishes to leave AMA today, reports he will call his family to pick him up, risks of leaving and manifests as staying were rediscussed with the patient, displays clear understanding and still wishes to leave AMA. 10 point review of system is negative except for above. PHYSICAL EXAMINATION: VITAL SIGNS: Please see below. GENERAL: No distress HEENT: moist mucous membranes NECK: Supple CARDIOVASCULAR EXAMINATION: S1, S2 RESPIRATORY EXAMINATION: Clear to auscultation ABDOMINAL EXAMINATION: Soft, nondistended, positive bowel sounds, ostomy with good output EXTREMITIES: Range of motion intact SKIN: Scattered erythema NEUROLOGICAL EXAMINATION: Calm and cooperative LABORATORY DATA: See below. MICROBIOLOGY: Please see below. ASSESSMENT: 74-year-old male with past medical history of type please mellitus, hypertension, COPD, hypothyroidism and chronic kidney disease was admitted for septic shock and acute renal failure, now downgraded to PCU. PLAN: 1. Acute on chronic kidney disease Initially requiring CRRT in the ICU, renal function has been improving gradually, now stabilized, likely at baseline, restarted Lasix, nephrology signed off. 2. Hypernatremia. Possibly related to normal saline infusion, TPN discontinued, was on D5W, hypernatremia improving, will monitor. 3. Dysphasia. has failed swallow eval multiple times, reevaluated by speech therapy, diet advanced to nectar thick, patient unhappy without dietary restrictions. 4. Septic shock Resolved, initially required vasopressors in the ICU, status post broad- spectrum IV antibiotics, now stable. Continue Doxycycline for Legionnaires's, ID eval appreciated. 5. Respiratory failure. Resolved, was intubated and placed on mechanical ventilation in the ICU, now on room air without complaints. 6. Diabetes mellitus. Hold metformin, sliding still insulin every 6 hours, episode of hypoglycemia due to poor oral intake from dietary restrictions, Levemir discontinued. 7. Hyperthyroidism. Continue propylthiouracil 8. Gout. Restarted allopurinol DVT prophylaxis: Heparin subcutaneous GI prophylaxis: PPI VS, I&O, 24H, Fishbone Vital Signs/I&O Vital Signs Date Time Temp Pulse Resp B/P (MAP) Pulse Ox O2 Delivery O2 Flow Rate FiO2 07/22/19 22:00 96.3 111 20 134/76 (95) 93 Room Air I&O- Last 24 Hours up to 6 AM 07/22/19 06:00 Intake Total 2280 ml Output Total 1775 ml Balance 505 ml Laboratory Data 24H LABS Laboratory Tests 2 07/22/19 05:36: Nucleated Red Blood Cells % (auto) 0.2H, Anion Gap 9, Glomerular Filtration Rate 41.4L, Calcium Level 8.5L, Magnesium Level 1.4L 07/22/19 12:17: Bedside Glucose (Misc Panel) 49L 07/22/19 12:36: Bedside Glucose (Misc Panel) 52L 07/22/19 13:04: Bedside Glucose (Misc Panel) 69L 07/22/19 16:16: Bedside Glucose (Misc Panel) 178H 07/22/19 19:53: Bedside Glucose (Misc Panel) 349H CBC/BMP Laboratory Tests 07/22/19 05:36 Microbiology Microbiology 07/15/19 Blood Culture - Final, Complete NO GROWTH AFTER 5 DAYS SHARLA LUI MD Jul 22, 2019 23:48
[2019-07-23] MEDS: IPRATROPIUM 0.5MG/ALBUTEROL 2.5MG INH SOL UD 3ML (DUONEB)(J7620) NEB SCH ×4 (02:00→21:20)
[2019-07-23] MEDS: HEPARIN SOD (PORCINE) 5000 UNITS/ML VIAL SQ SCH ×3 (05:43→21:15)
[2019-07-23 05:55] LABS: HEMATOCRIT 30.4 % (42.0-52.0); HEMOGLOBIN 9.7 g/dl (13.5-17.5); MEAN CORPUSCULAR HEMOGLOBIN 29.5 pg (27.0-33.0); MEAN CORPUSCULAR HGB CONC 31.9 g/dl (32.0-36.5); MEAN CORPUSCULAR VOLUME 92.4 fl (80.0-96.0); PLATELET COUNT, AUTOMATED 278 10^3/uL (150-450); RED BLOOD COUNT 3.29 10^6/uL (4.30-6.10); WHITE BLOOD COUNT 15.8 10^3/uL (4.0-10.0)
[2019-07-23 06:00] VITALS: BP 135/74
[2019-07-23 06:16] LABS: CALCIUM LEVEL 8.4 MG/DL (8.8-10.2); CREATININE FOR GFR 1.57 MG/DL (0.70-1.30); GLOMERULAR FILTRATION RATE 46.3 (>42); POTASSIUM SERUM 3.9 MEQ/L (3.5-5.1)
[2019-07-23] MEDS: VITAMIN D 1,000 INTERNATIONAL UNITS TABLET PO SCH (09:20)
[2019-07-23] MEDS: FERROUS SULFATE 325MG TAB PO SCH ×2 (09:20→21:15)
[2019-07-23] MEDS: ASPIRIN 81 MG CHEW TABLET PO SCH (09:20)
[2019-07-23] MEDS: busPIRone 5 MG TAB PO SCH ×2 (09:20→21:15)
[2019-07-23] MEDS: MAGNESIUM OXIDE 400 MG TAB (MAG-OX) PO SCH ×2 (09:20→21:15)
[2019-07-23] MEDS: DOXYCYCLINE HYCLATE 100 MG TAB PO SCH ×2 (09:21→21:15)
[2019-07-23] MEDS: BICITRA 30ML SOLN UDC PO SCH ×2 (09:21→21:00)
[2019-07-23] MEDS: predniSONE 5 MG TAB PO SCH (09:21)
[2019-07-23] MEDS: allopurinoL 300 MG TAB PO SCH (09:21)
[2019-07-23] MEDS: FUROSEMIDE 40 MG TAB PO SCH (09:21)
[2019-07-23] MEDS: METOPROLOL TART 50 MG TAB PO SCH ×2 (09:21→21:14)
[2019-07-23] MEDS: propylthiouraciL 50 MG TAB PO SCH ×2 (09:22→21:14)
[2019-07-23] MEDS: FOLIC ACID 1 MG TAB PO SCH (09:22)
[2019-07-23] MEDS: PANTOPRAZOLE 40MG TAB (PROTONIX) PO SCH (09:22)
[2019-07-23] MEDS: HumaLOG INSULIN (NovoLOG) PER UNIT SC SCH ×4 (09:23→20:30)
[2019-07-23] MEDS: VANICREAM MOISTURIZING SKIN CREAM 113GM TUBE TOP SCH ×2 (09:23→21:15)
--- NOTE | 2019-07-23 10:20 | IPN ---
DATE OF VISIT: 07/13/2019 Mr. Higgins is seen this morning on his bedside. He is sitting in the chair and is much more alert and communicative. Physical therapy has been trying to work with him and he is still very weak and unable to even stand up. He failed his swallowing evaluation twice and has been on TPN. PHYSICAL EXAMINATION: Temperature 99 degrees Fahrenheit, heart rate 127 per minute and respiratory rate 24 per minute. Blood pressure 152/79 mmHg and oxygen saturation 95%. His head is atraumatic. Neck is supple and jugular venous distention (JVD) not visible sitting upright. Lungs have bilateral rhonchi but much better air entry. Heart sounds are tachycardiac. Abdomen is soft and nontender and bowel sounds normal. Extremities without any cyanosis or clubbing. Neurologically, he is awake, alert and oriented times three. Today's labs show WBC count 13.7, hemoglobin 9.5 and hematocrit 31.2. Platelets 247. Sodium 158, potassium 3.4, chloride 125, CO2 27, BUN 33 and creatinine 1.67. Glucose 278 and calcium 8.5. His magnesium level is 1.6. PROBLEMS: 1. Acute renal failure. The patient is non oliguric and kidney function is stable. No need for dialysis at this point. 2. Hypernatremia. This is related to IV fluids and TPN. I am going to switch him to special formula TPN without any sodium. We will check his electrolytes tomorrow. 3. Hypokalemia. Slightly better with potassium supplement. We are adding 50 mEq of potassium in the TPN today and electrolytes will be checked again tomorrow morning. 4. Hypomagnesemia. This is also nutritional and magnesium gluconate will be added 8 mEq to the TPN today. 5. Anemia. His anemia is stable and does not need any intervention at this point. 6. Generalized weakness. The patient is very deconditioned and unable to even stand up with the help of two physical therapists and walker. He will continue with physical therapy.
[2019-07-23 19:49] VITALS: BP 155/80
[2019-07-23] MEDS ORDERED: diphenhydrAMINE 25 MG CAP PO ONE (21:00)
--- NOTE | 2019-07-23 21:04 | IPNPDOC ---
Date Seen The patient was seen on 07/23/19. Progress Note HISTORY OF PRESENT ILLNESS: 74-year-old male with past medical history of diabetes mellitus, hypertension, COPD, hyperthyroidism, chronic kidney disease presents to the emergency room with shaking of his arms and malaise. Patient was admitted 1 month ago for right hip fracture status post mechanical fall, presented to emergency room 1 week ago with cellulitis, was advised to be admitted by emergency room staff but patient refused to be admitted and went home. Patient has a history of signing out AMA. Patient currently reports he has had poor oral intake for the past few days, chills and fever, urinary incontinence. He denies any chest pain, nausea, vomiting, abdominal pain or diarrhea. 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 07/17/2019 Patient has been downgraded to PCU since last time I saw him, currently resting in chair, comfortable, without any complaints, frustrated and wishing to go home, but understand why he needs to stay here. He has failed his swallow evaluation multiple times, underwent repeat swallow evaluation today and is allowed pured diet. He remains on TPN, denies shortness of breath, chest pain, nausea, vomiting, abdominal pain or diarrhea. 07/18/19 Comfortable in chair, wants to go home, no new complaints. He is tolerating pureed diet, TPN discontinued. He denies any SOB, CP, N/V, abdominal pain or diarrhea. 07/19/19 Patient off TPN, tolerating nectar thick diet but is really unhappy about it, wants regular food. Patient also reports issues at home that he has to take care off and wishes to leave today. He is advised that he isn't ready to be discharged yet given his dysphagia, electrolyte abnormalities and severe physical deconditioning; patient understands why he must stay but wishes to leave against medical advice anyway. He was ready to leave twice (once with family and once via a cab) but first his family refused to take him given his current condition and he wasn't able to stand up and walk to be able to leave via a cab; so he has elected to stay for now. Patient's PICC line was removed in anticipation of him leaving AMA. Patient is without any medical complaints at this time, denies SOB, CP, nausea, vomiting, abdominal pain or diarrhea. 07/20/2019 Patient seen in the morning, without any complaints, reports that he will be leaving AMA today, has ordered a cold cab. He was reevaluated later in the day, was unable to leave AMA because he was unable to get out of the wheelchair and get into his cab. Patient still adamant about leaving AMA, rearranging alternative means. He denies any shortness of breath, chest pain, nausea, vomiting, abdominal pain or diarrhea at this time. 07/21/19 Patient in bed, sleeping, easily arousable, without complaints, not wishing to leave AMA today. 07/22/19 Patient reiterating that he wishes to leave AMA today, reports he will call his family to pick him up, risks of leaving and manifests as staying were rediscussed with the patient, displays clear understanding and still wishes to leave AMA. 07/23/19 Comfortable in bed, without complaints, re-evaluated by Speech therapy, diet advanced which patient is happy about, working w/ PT, not planning on leaving AMA today after a discussion with his . 10 point review of system is negative except for above. PHYSICAL EXAMINATION: VITAL SIGNS: Please see below. GENERAL: No distress HEENT: moist mucous membranes NECK: Supple CARDIOVASCULAR EXAMINATION: S1, S2 RESPIRATORY EXAMINATION: Clear to auscultation ABDOMINAL EXAMINATION: Soft, nondistended, positive bowel sounds, ostomy with good output EXTREMITIES: Range of motion intact SKIN: Scattered erythema NEUROLOGICAL EXAMINATION: Calm and cooperative LABORATORY DATA: See below. MICROBIOLOGY: Please see below. ASSESSMENT: 74-year-old male with past medical history of type please mellitus, hypertension, COPD, hypothyroidism and chronic kidney disease was admitted for septic shock and acute renal failure, now downgraded to PCU. PLAN: 1. Acute on chronic kidney disease Initially requiring CRRT in the ICU, renal function has been improving gradually, now stabilized, likely at baseline, restarted Lasix, nephrology signed off. 2. Hypernatremia. Possibly related to normal saline infusion, TPN discontinued, was on D5W, hypernatremia improving, will monitor. 3. Dysphasia. has failed swallow eval multiple times, reevaluated by speech therapy, diet advanced further today. 4. Septic shock Resolved, initially required vasopressors in the ICU, status post broad- spectrum IV antibiotics, now stable. Completed seven days of Doxycycline for Legionnaires's, ID broderick appreciated. 5. Respiratory failure. Resolved, was intubated and placed on mechanical ventilation in the ICU, now on room air without complaints. 6. Diabetes mellitus. Hold metformin, sliding still insulin every 6 hours, episode of hypoglycemia due to poor oral intake from dietary restrictions, Levemir discontinued. 7. Hyperthyroidism. Continue propylthiouracil 8. Gout. Restarted allopurinol DVT prophylaxis: Heparin subcutaneous GI prophylaxis: PPI VS, I&O, 24H, Fishbone Vital Signs/I&O Vital Signs Date Time Temp Pulse Resp B/P (MAP) Pulse Ox O2 Delivery O2 Flow Rate FiO2 07/23/19 09:21 107 135/74 07/23/19 06:00 97.7 19 94 Room Air I&O- Last 24 Hours up to 6 AM 07/23/19 06:00 Intake Total 1410 ml Output Total 1820 ml Balance -410 ml Laboratory Data 24H LABS Laboratory Tests 2 07/23/19 05:21: Nucleated Red Blood Cells % (auto) 0.0, Anion Gap 10, Glomerular Filtration Rate 46.3, Calcium Level 8.4L 07/23/19 13:26: Bedside Glucose (Misc Panel) 197H 07/23/19 16:31: Bedside Glucose (Misc Panel) 302H CBC/BMP Laboratory Tests 07/23/19 05:21 Microbiology Microbiology 07/15/19 Blood Culture - Final, Complete NO GROWTH AFTER 5 DAYS SHARLA LUI MD Jul 23, 2019 21:04
[2019-07-23] MEDS: RAMELTEON 8 MG TAB (ROZEREM) PO SCH (21:14)
[2019-07-23] MEDS: SIMVASTATIN 20 MG TAB PO SCH (21:15)
[2019-07-24] MEDS: IPRATROPIUM 0.5MG/ALBUTEROL 2.5MG INH SOL UD 3ML (DUONEB)(J7620) NEB SCH ×4 (02:34→20:34)
[2019-07-24 05:30] VITALS: BP 152/74
[2019-07-24] MEDS: HEPARIN SOD (PORCINE) 5000 UNITS/ML VIAL SQ SCH ×3 (06:13→21:48)
[2019-07-24] MEDS: HumaLOG INSULIN (NovoLOG) PER UNIT SC SCH ×4 (07:45→21:00)
[2019-07-24] MEDS: VITAMIN D 1,000 INTERNATIONAL UNITS TABLET PO SCH (09:00)
[2019-07-24 10:01] LABS: HEMATOCRIT 30.9 % (42.0-52.0); HEMOGLOBIN 9.6 g/dl (13.5-17.5); MEAN CORPUSCULAR HEMOGLOBIN 29.2 pg (27.0-33.0); MEAN CORPUSCULAR HGB CONC 31.1 g/dl (32.0-36.5); MEAN CORPUSCULAR VOLUME 93.9 fl (80.0-96.0); PLATELET COUNT, AUTOMATED 279 10^3/uL (150-450); RED BLOOD COUNT 3.29 10^6/uL (4.30-6.10); WHITE BLOOD COUNT 13.4 10^3/uL (4.0-10.0)
[2019-07-24] MEDS: METOPROLOL TART 50 MG TAB PO SCH ×2 (10:06→21:42)
[2019-07-24] MEDS: ASPIRIN 81 MG CHEW TABLET PO SCH (10:06)
[2019-07-24] MEDS: PANTOPRAZOLE 40MG TAB (PROTONIX) PO SCH (10:07)
[2019-07-24] MEDS: MAGNESIUM OXIDE 400 MG TAB (MAG-OX) PO SCH ×2 (10:07→21:43)
[2019-07-24] MEDS: DOXYCYCLINE HYCLATE 100 MG TAB PO SCH (10:08)
[2019-07-24] MEDS: busPIRone 5 MG TAB PO SCH ×2 (10:08→21:41)
[2019-07-24] MEDS: FOLIC ACID 1 MG TAB PO SCH (10:09)
[2019-07-24] MEDS: allopurinoL 300 MG TAB PO SCH (10:09)
[2019-07-24] MEDS: predniSONE 5 MG TAB PO SCH (10:09)
[2019-07-24] MEDS: FERROUS SULFATE 325MG TAB PO SCH ×2 (10:10→21:42)
[2019-07-24] MEDS: propylthiouraciL 50 MG TAB PO SCH ×2 (10:10→21:44)
[2019-07-24] MEDS: VANICREAM MOISTURIZING SKIN CREAM 113GM TUBE TOP SCH ×2 (10:11→21:49)
[2019-07-24] MEDS: FUROSEMIDE 40 MG TAB PO SCH (10:15)
--- NOTE | 2019-07-24 11:53 | DS.PDOC ---
Discharge Summary General Date of Admission Jul 04, 2019 at 13:28 Date of Discharge 07/24/19 Discharge Summary PROCEDURES PERFORMED DURING STAY: None. ADMITTING DIAGNOSES: 1. Acute on chronic renal failure, hyponatremia, dysphagia, septic shock, respiratory failure, diabetes mellitus, hyperthyroidism and gout. DISCHARGE DIAGNOSES: 1. Acute on chronic renal failure, hyrernatremia, dysphagia, septic shock, respiratory failure, diabetes mellitus, hyperthyroidism, gout. COMPLICATIONS/CHIEF COMPLAINT: Acute Renal Failure,Cellulitis,Copd. HISTORY OF PRESENT ILLNESS: 74-year-old male with past medical history of diabetes mellitus, hypertension, COPD, hyperthyroidism, chronic kidney disease presents to the emergency room with shaking of his arms and malaise. Patient was admitted 1 month ago for right hip fracture status post mechanical fall, presented to emergency room 1 week ago with cellulitis, was advised to be admitted by emergency room staff but patient refused to be admitted and went home. Patient has a history of signing out AMA. Patient currently reports he has had poor oral intake for the past few days, chills and fever, urinary incontinence. He denies any chest pain, nausea, vomiting, abdominal pain or diarrhea. 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 HOSPITAL COURSE: 1. Acute on chronic kidney disease Initially requiring CRRT in the ICU, renal function has been improving gradually, now stabilized, likely at baseline, restarted Lasix, nephrology signed off. -Patient clinically stable and will be discharged to [facility] today - had a prolonged stay in the hospital. Please refer to patient's medical records for pertinent information 2. Hypernatremia. Possibly related to normal saline infusion, TPN discontinued, was on D5W, hypernatremia improving, will monitor. 3. Dysphasia. has failed swallow eval multiple times, reevaluated by speech therapy, diet advanced further today. 4. Septic shock Resolved, initially required vasopressors in the ICU, status post broad- spectrum IV antibiotics, now stable. 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 5. Respiratory failure. Resolved, was intubated and placed on mechanical ventilation in the ICU, now on room air without complaints. 6. Diabetes mellitus. Hold metformin, sliding still insulin every 6 hours, episode of hypoglycemia due to poor oral intake from dietary restrictions, Levemir discontinued. 7. Hyperthyroidism. Continue propylthiouracil 8. Gout. Restarted allopurinol. DISCHARGE MEDICATIONS: Please see below. ALLERGIES: Please see below. PHYSICAL EXAMINATION ON DISCHARGE: VITAL SIGNS: Please see below. GENERAL: Within normal limits HEENT: PERRLA, extra ocular muscles intact NECK: Supple CARDIOVASCULAR EXAMINATION: S1, S2, regular RESPIRATORY EXAMINATION: Clear to A&P ABDOMINAL EXAMINATION: Benign EXTREMITIES: No clubbing, cyanosis, edema SKIN: Normal NEUROLOGICAL EXAMINATION: . No focal motor sensory deficit PSYCHIATRIC EXAMINATION: Normal LABORATORY DATA: Please see below. IMAGING: Please refer to EMR for detailed multiple imaging studies PROGNOSIS: Fair ACTIVITY: As tolerated. DIET: As per discharge orders DISCHARGE PLAN: Discharge to [facility] DISPOSITION: . Discharges [facility] DISCHARGE INSTRUCTIONS: 1. As per discharge instructions. ITEMS TO FOLLOWUP ON ON OUTPATIENT: 1. Follow with PCP in one week. DISCHARGE CONDITION: Stable. TIME SPENT ON DISCHARGE: 48 minutes. Vital Signs/I&Os Vital Signs Date Time Temp Pulse Resp B/P (MAP) Pulse Ox O2 Delivery O2 Flow Rate FiO2 07/24/19 10:06 120 152/74 07/24/19 05:30 97.9 19 95 Room Air 07/23/19 20:45 2.0 I&O- Last 24 Hours up to 6 AM 07/24/19 06:00 Intake Total 820 ml Output Total 825 ml Balance -5 ml Laboratory Data Labs 24H Laboratory Tests 2 07/23/19 13:26: Bedside Glucose (Misc Panel) 197H 07/23/19 16:31: Bedside Glucose (Misc Panel) 302H 07/23/19 20:12: Bedside Glucose (Misc Panel) 63L 07/24/19 06:09: Bedside Glucose (Misc Panel) 226H 07/24/19 09:16: Nucleated Red Blood Cells % (auto) 0.0 07/24/19 11:32: Bedside Glucose (Misc Panel) 245H CBC/BMP Laboratory Tests 07/24/19 09:16 FSBS Laboratory Tests Test 07/23/19 13:26 07/23/19 16:31 07/23/19 20:12 07/24/19 06:09 Range/Units Bedside Glucose (Misc Panel) 197 302 63 226 83-110 MG/DL Test 07/24/19 11:32 Range/Units Bedside Glucose (Misc Panel) 245 83-110 MG/DL Microbiology Microbiology 07/15/19 Blood Culture - Final, Complete NO GROWTH AFTER 5 DAYS Discharge Medications Scheduled Allopurinol (Zyloprim) 300 Mg Tablet, 300 MG PO DAILY, (Reported) Amitriptyline HCl (Amitriptyline HCl) 25 Mg Tab, 25 MG PO QHS, (Reported) Amlodipine Besylate (Amlodipine Besylate) 5 Mg Tab, 5 MG PO DAILY, (Reported) Ascorbic Acid (Vitamin C) 500 Mg Tab, 500 MG PO TID, (Reported) Aspirin (Ecotrin) 81 Mg Tab, 81 MG PO DAILY, (Reported) Atenolol (Atenolol) 50 Mg Tablet, 75 MG PO DAILY, (Reported) Buspirone HCl (Buspirone HCl) 15 Mg Tab, 15 MG PO BID, (Reported) Cholecalciferol (Vitamin D3) (Vitamin D3) 5,000 Unit Cap, 5,000 UNIT PO DAILY, (Reported) Citalopram Hydrobromide (Citalopram HBr) 20 Mg Tab, 20 MG PO DAILY, (Reported) Cyanocobalamin (Vitamin B-12) (Vitamin B-12) 1,000 Mcg Tablet, 1,000 MCG PO TID, (Reported) Ferrous Sulfate (Ferrous Sulfate) 325 Mg Tablet.dr, 325 MG PO BID, (Reported) Fluticasone Propion/Salmeterol (Advair Hfa 115-21 Mcg Inhaler) 1 Aer Aer, 2 PUFF INH BID, (Reported) Folic Acid (Folic Acid) 1 Mg Tab, 1 MG PO DAILY, (Reported) Furosemide (Furosemide) 40 Mg Tablet, 40 MG PO DAILY, (Reported) Gabapentin (Gabapentin) 300 Mg Capsule, 300 MG PO QHS, (Reported) Lisinopril (Lisinopril) 10 Mg Tab, 10 MG PO DAILY, (Reported) Magnesium Oxide (Magnesium Oxide) 400 Mg Tablet, 800 MG PO BID, (Reported) Metformin HCl (Metformin HCl) 500 Mg Tablet, 500 MG PO BID, (Reported) Omeprazole (Omeprazole) 40 Mg Cap, 40 MG PO DAILY, (Reported) Prednisone (Prednisone) 5 Mg Tablet, 5 MG PO DAILY, (Reported) Propylthiouracil (Propylthiouracil) 50 Mg Tab, 50 MG PO QAM, (Reported) Propylthiouracil (Propylthiouracil) 50 Mg Tab, 25 MG PO QHS, (Reported) Ramelteon (Rozerem) 8 Mg Tablet, 8 MG PO QHS, (Reported) Ropinirole HCl (Ropinirole HCl) 4 Mg Tablet, 4 MG PO QHS, (Reported) Simvastatin (Simvastatin) 20 Mg Tab, 20 MG PO QHS, (Reported) Scheduled PRN Acetaminophen (Acetaminophen) 325 Mg Tablet, 650 MG PO Q6H PRN for PAIN, (Reported) Albuterol Sulf (Albuterol Sulfate) 2.5 Mg/3 Ml Nebu, 2.5 MG INH PRN PRN for WHEEZING, (Reported) Ipratropium/Albuterol Sulfate (Combivent Respimat 20-100 Mcg) 1 Aer Aer, 1 PUFF INH QID PRN for SHORTNESS OF BREATH, (Reported) Sennosides/Docusate Sodium (Senna Plus Tablet) 1 Each Tablet, 1 TAB PO BID PRN for CONSTIPATION, (Reported) Allergies Coded Allergies: Quinolones (Verified Allergy, Intermediate, hives, 05/09/19) azithromycin (Verified Allergy, Intermediate, hives, 05/09/19) levofloxacin (Verified Allergy, Intermediate, hives, 05/09/19) tobramycin (Verified Allergy, Unknown, unsure, 05/03/19) ibuprofen (Verified Adverse Reaction, Mild, upset stomach, 05/09/19) zolpidem (Verified Adverse Reaction, Mild, hallucination, 05/09/19) SO MORALES MD Jul 24, 2019 11:53
[2019-07-24 14:00] VITALS: BP 145/72
[2019-07-24] MEDS: RAMELTEON 8 MG TAB (ROZEREM) PO SCH (21:40)
[2019-07-24] MEDS: SIMVASTATIN 20 MG TAB PO SCH (21:44)
[2019-07-24 22:00] VITALS: BP 139/77
[2019-07-25] MEDS: IPRATROPIUM 0.5MG/ALBUTEROL 2.5MG INH SOL UD 3ML (DUONEB)(J7620) NEB SCH ×4 (02:00→20:19)
[2019-07-25] MEDS: HEPARIN SOD (PORCINE) 5000 UNITS/ML VIAL SQ SCH ×3 (05:23→21:19)
[2019-07-25 06:37] LABS: BASO # 0.1 10^3/uL (0.0-0.2); BASO % 0.7 % (0.0-1.0); EOS # 1.1 10^3/uL (0.0-0.5); EOS % 8.6 % (0.0-3.0); HEMATOCRIT 29.2 % (42.0-52.0); HEMOGLOBIN 9.5 g/dl (13.5-17.5); LYMPH # 1.4 10^3/uL (1.5-5.0); LYMPH % 11.2 % (24.0-44.0); MEAN CORPUSCULAR HEMOGLOBIN 29.9 pg (27.0-33.0); MEAN CORPUSCULAR HGB CONC 32.5 g/dl (32.0-36.5); MEAN CORPUSCULAR VOLUME 91.8 fl (80.0-96.0); MONO # 1.1 10^3/uL (0.0-0.8); MONO % 8.6 % (0.0-5.0); NEUTROPHILS # 8.1 10^3/uL (1.5-8.5); NEUTROPHILS % 66.2 % (36.0-66.0); PLATELET COUNT, AUTOMATED 275 10^3/uL (150-450); RED BLOOD COUNT 3.18 10^6/uL (4.30-6.10); WHITE BLOOD COUNT 12.3 10^3/uL (4.0-10.0)
[2019-07-25 06:57] LABS: BILIRUBIN,TOTAL 0.8 MG/DL (0.2-1.0); CALCIUM LEVEL 8.8 MG/DL (8.8-10.2); CREATININE FOR GFR 1.61 MG/DL (0.70-1.30); POTASSIUM SERUM 3.8 MEQ/L (3.5-5.1); TOTAL PROTEIN 5.4 GM/DL (6.4-8.2)
--- NOTE | 2019-07-25 08:12 | IPNPDOC ---
Subjective Date Seen The patient was seen on 07/24/19. Subjective Chief Complaint/HPI Pt has been trying to sign out since last 5 days. Today we got a bed [facility] and he was ready to be discharged. At last minute he decided against it. . He offers no complaints except that he wishes to sign out AGAINST MEDICAL ADVICE and go home. Note, he is unable to ambulate properly General: Reports: ROS Unobtainable (unable to give me review of system. He only wishes to sign out AGAINST MEDICAL ADVICE) Objective Physical Examination General Exam: Positive: Other (refused to be examined very agitated, does not want to stay at the hospital and does not wish to be transferred to [facility]) Assessment /Plan Problems (1) Sepsis Status: Resolved Problem Text: Patient is off antibiotics, doxycycline was DC'd Eschen is afebrile, asymptomatic (2) HTN (hypertension) Status: Chronic Problem Text: Continue present meds (3) IRMA (acute kidney injury) Status: Acute Problem Text: Acute on chronic kidney disease. Nephrology signed off. He is on by mouth Lasix at the present time (4) Diabetes mellitus Status: Chronic Problem Text: Fingerstick blood sugar every 6 hours with coverage (5) Hypernatremia Status: Resolved Problem Text: Plan/VTE VTE Prophylaxis Ordered?: Yes VS, I&O, 24H, Fishbone Vital Signs/I&O Vital Signs Date Time Temp Pulse Resp B/P (MAP) Pulse Ox O2 Delivery O2 Flow Rate FiO2 07/24/19 22:00 97.2 100 18 139/77 (97) 95 Room Air 07/23/19 20:45 2.0 I&O- Last 24 Hours up to 6 AM 07/25/19 06:00 Intake Total 1060 ml Output Total 850 ml Balance 210 ml Laboratory Data 24H LABS Laboratory Tests 2 07/24/19 09:16: Nucleated Red Blood Cells % (auto) 0.0 07/24/19 11:32: Bedside Glucose (Misc Panel) 245H 07/24/19 16:40: Bedside Glucose (Misc Panel) 93 07/24/19 20:12: Bedside Glucose (Misc Panel) 201H 07/25/19 05:56: Immature Granulocyte % (Auto) 4.7H, Neutrophils (%) (Auto) 66.2H, Lymphocytes (%) (Auto) 11.2L, Monocytes (%) (Auto) 8.6H, Eosinophils (%) (Auto) 8.6H, Basophils (%) (Auto) 0.7, Neutrophils # (Auto) 8.1, Lymphocytes # (Auto) 1.4L, Monocytes # (Auto) 1.1H, Eosinophils # (Auto) 1.1H, Basophils # (Auto) 0.1, Nucleated Red Blood Cells % (auto) 0.0, Anion Gap 11, Glomerular Filtration Rate 45.0, Calcium Level 8.8, Total Bilirubin 0.8, Aspartate Amino Transf (AST/SGOT) 10, Alanine Aminotransferase (ALT/SGPT) 13, Alkaline Phosphatase 117, Total Protein 5.4L, Albumin 2.0L, Albumin/Globulin Ratio 0.59L CBC/BMP Laboratory Tests 07/24/19 09:16 07/25/19 05:56 Microbiology Microbiology 07/15/19 Blood Culture - Final, Complete NO GROWTH AFTER 5 DAYS SO MORALES MD Jul 25, 2019 08:12
[2019-07-25] MEDS: VANICREAM MOISTURIZING SKIN CREAM 113GM TUBE TOP SCH ×2 (09:00→20:42)
[2019-07-25] MEDS: allopurinoL 300 MG TAB PO SCH (09:33)
[2019-07-25] MEDS: PANTOPRAZOLE 40MG TAB (PROTONIX) PO SCH (09:33)
[2019-07-25] MEDS: FERROUS SULFATE 325MG TAB PO SCH ×2 (09:33→20:39)
[2019-07-25] MEDS: ASPIRIN 81 MG CHEW TABLET PO SCH (09:33)
[2019-07-25] MEDS: FOLIC ACID 1 MG TAB PO SCH (09:33)
[2019-07-25] MEDS: propylthiouraciL 50 MG TAB PO SCH ×2 (09:33→20:41)
[2019-07-25] MEDS: busPIRone 5 MG TAB PO SCH ×2 (09:33→20:39)
[2019-07-25] MEDS: MAGNESIUM OXIDE 400 MG TAB (MAG-OX) PO SCH ×2 (09:34→20:39)
[2019-07-25] MEDS: predniSONE 5 MG TAB PO SCH (09:34)
[2019-07-25] MEDS: VITAMIN D 1,000 INTERNATIONAL UNITS TABLET PO SCH (09:34)
[2019-07-25] MEDS: FUROSEMIDE 40 MG TAB PO SCH (09:34)
[2019-07-25] MEDS: METOPROLOL TART 50 MG TAB PO SCH ×2 (09:36→20:40)
[2019-07-25] MEDS: HumaLOG INSULIN (NovoLOG) PER UNIT SC SCH ×4 (09:50→21:00)
--- NOTE | 2019-07-25 10:14 | IPNPDOC ---
Subjective Date Seen The patient was seen on 07/25/19. Subjective Chief Complaint/HPI Patient refuses to go to [facility] yesterday. Is still unable to ambulate and get out of bed and walk more than 2 steps, offers no new complaints Skin: Denies: Rash, Lesions, Jaundice, Bruising, Itching, Dry, Breakdown, Nail Changes, Other Pulmonary: Denies: Dyspnea, Cough, Pleuritic Chest Pain, Other Symptoms Cardiovascular: Denies: Chest Pain, Palpitations, Orthopnea, Paroxysmal Noc. Dyspnea, Edema, Lt Headedness, Other Symptoms Gastrointestinal: Denies: Nausea, Vomiting, Abdominal Pain, Diarrhea, Constipation, Melena, Hematochezia, Other Symptoms Musculoskeletal: Denies: Neck Pain, Back Pain, Shoulder Pain, Arm Pain, Hand Pain, Leg Pain, Foot Pain, Joint Pain, Muscle Pain, Spasms, Other Symptoms Neurological: Denies: Weakness, Numbness, Incoordination, Change in speech, Confusion, Seizures, Other Symptoms Objective Physical Examination General Exam: Positive: Alert Neck Exam: Positive: Supple Chest Exam: Positive: Clear to auscultation, Normal air movement Heart Exam: Positive: Rate Normal, Normal S1, Normal S2 Abdomen Exam: Positive: Normal bowel sounds, Soft, Tenderness Extremity Exam: Positive: Normal pulses Skin Exam: Positive: Nl turgor and temperature Assessment /Plan Problems (1) Sepsis Status: Resolved Problem Text: Patient is off antibiotics, doxycycline was DC'd Patient is afebrile, asymptomatic, will discuss with case management and social work tomorrow regarding discharge planning And tinea present care (2) HTN (hypertension) Status: Chronic Problem Text: Continue present meds (3) IRMA (acute kidney injury) Status: Acute Problem Text: Acute on chronic kidney disease. Nephrology signed off. He is on by mouth Lasix at the present time (4) Diabetes mellitus Status: Chronic Problem Text: Fingerstick blood sugar every 6 hours with coverage (5) Hypernatremia Status: Resolved Problem Text: Plan/VTE VTE Prophylaxis Ordered?: Yes VS, I&O, 24H, Fishbone Vital Signs/I&O Vital Signs Date Time Temp Pulse Resp B/P (MAP) Pulse Ox O2 Delivery O2 Flow Rate FiO2 07/25/19 09:36 111 125/67 07/24/19 22:00 97.2 18 95 Room Air 07/23/19 20:45 2.0 I&O- Last 24 Hours up to 6 AM 07/25/19 05:59 Intake Total 1160 ml Output Total 850 ml Balance 310 ml Laboratory Data 24H LABS Laboratory Tests 2 07/24/19 11:32: Bedside Glucose (Misc Panel) 245H 07/24/19 16:40: Bedside Glucose (Misc Panel) 93 07/24/19 20:12: Bedside Glucose (Misc Panel) 201H 07/25/19 05:56: Immature Granulocyte % (Auto) 4.7H, Neutrophils (%) (Auto) 66.2H, Lymphocytes (%) (Auto) 11.2L, Monocytes (%) (Auto) 8.6H, Eosinophils (%) (Auto) 8.6H, Basophils (%) (Auto) 0.7, Neutrophils # (Auto) 8.1, Lymphocytes # (Auto) 1.4L, Monocytes # (Auto) 1.1H, Eosinophils # (Auto) 1.1H, Basophils # (Auto) 0.1, Nucleated Red Blood Cells % (auto) 0.0, Anion Gap 11, Glomerular Filtration Rate 45.0, Calcium Level 8.8, Total Bilirubin 0.8, Aspartate Amino Transf (AST/SGOT) 10, Alanine Aminotransferase (ALT/SGPT) 13, Alkaline Phosphatase 117, Total Protein 5.4L, Albumin 2.0L, Albumin/Globulin Ratio 0.59L CBC/BMP Laboratory Tests 07/25/19 05:56 Microbiology Microbiology 07/15/19 Blood Culture - Final, Complete NO GROWTH AFTER 5 DAYS SO MORALES MD Jul 25, 2019 10:14
[2019-07-25 14:00] VITALS: BP 120/66
[2019-07-25 20:38] VITALS: BP 129/60
[2019-07-25] MEDS: SIMVASTATIN 20 MG TAB PO SCH (20:39)
[2019-07-25] MEDS: RAMELTEON 8 MG TAB (ROZEREM) PO SCH (20:40)
[2019-07-26] MEDS: IPRATROPIUM 0.5MG/ALBUTEROL 2.5MG INH SOL UD 3ML (DUONEB)(J7620) NEB SCH ×4 (01:27→20:00)
[2019-07-26] MEDS: HEPARIN SOD (PORCINE) 5000 UNITS/ML VIAL SQ SCH ×3 (05:04→20:25)
[2019-07-26 05:11] LABS: BASO # 0.1 10^3/uL (0.0-0.2); BASO % 0.4 % (0.0-1.0); EOS # 1.1 10^3/uL (0.0-0.5); EOS % 6.3 % (0.0-3.0); HEMATOCRIT 30.8 % (42.0-52.0); LYMPH # 1.3 10^3/uL (1.5-5.0); LYMPH % 7.7 % (24.0-44.0); MEAN CORPUSCULAR HEMOGLOBIN 29.9 pg (27.0-33.0); MEAN CORPUSCULAR HGB CONC 32.5 g/dl (32.0-36.5); MEAN CORPUSCULAR VOLUME 91.9 fl (80.0-96.0); MONO # 1.1 10^3/uL (0.0-0.8); MONO % 6.3 % (0.0-5.0); NEUTROPHILS # 12.6 10^3/uL (1.5-8.5); NEUTROPHILS % 75.4 % (36.0-66.0); PLATELET COUNT, AUTOMATED 281 10^3/uL (150-450); RED BLOOD COUNT 3.35 10^6/uL (4.30-6.10); WHITE BLOOD COUNT 16.8 10^3/uL (4.0-10.0)
[2019-07-26 05:38] LABS: ALBUMIN 2.2 GM/DL (3.2-5.2); BILIRUBIN,TOTAL 0.5 MG/DL (0.2-1.0); CALCIUM LEVEL 8.5 MG/DL (8.8-10.2); CREATININE FOR GFR 1.54 MG/DL (0.70-1.30); GLOMERULAR FILTRATION RATE 47.4 (>42); POTASSIUM SERUM 3.8 MEQ/L (3.5-5.1); TOTAL PROTEIN 5.4 GM/DL (6.4-8.2)
[2019-07-26 06:35] VITALS: BP 155/86
[2019-07-26] MEDS: HumaLOG INSULIN (NovoLOG) PER UNIT SC SCH ×4 (09:17→20:18)
[2019-07-26] MEDS: propylthiouraciL 50 MG TAB PO SCH ×2 (09:17→20:27)
[2019-07-26] MEDS: VITAMIN D 1,000 INTERNATIONAL UNITS TABLET PO SCH (09:18)
[2019-07-26] MEDS: ASPIRIN 81 MG CHEW TABLET PO SCH (09:18)
[2019-07-26] MEDS: predniSONE 5 MG TAB PO SCH (09:18)
[2019-07-26] MEDS: FOLIC ACID 1 MG TAB PO SCH (09:18)
[2019-07-26] MEDS: busPIRone 5 MG TAB PO SCH ×2 (09:18→20:26)
[2019-07-26] MEDS: PANTOPRAZOLE 40MG TAB (PROTONIX) PO SCH (09:18)
[2019-07-26] MEDS: allopurinoL 300 MG TAB PO SCH (09:19)
[2019-07-26] MEDS: MAGNESIUM OXIDE 400 MG TAB (MAG-OX) PO SCH ×2 (09:19→20:26)
[2019-07-26] MEDS: FUROSEMIDE 40 MG TAB PO SCH (09:19)
[2019-07-26] MEDS: FERROUS SULFATE 325MG TAB PO SCH ×2 (09:20→20:26)
[2019-07-26] MEDS: METOPROLOL TART 50 MG TAB PO SCH ×2 (09:21→20:27)
[2019-07-26] MEDS: VANICREAM MOISTURIZING SKIN CREAM 113GM TUBE TOP SCH ×2 (09:21→20:28)
--- NOTE | 2019-07-26 10:16 | REP ---
Clinical: Pneumonia . Comparison: 07/15/2019 . Technique: PA and lateral. Findings: The mediastinum and cardiac silhouette are normal. The lung valdez demonstrate stable chronic changes and the previously noted left lower lobe infiltrate/atelectasis has resolved. The skeletal structures are intact and normal. Impression: 1. No acute cardiopulmonary process. 2. Previously identified left lower lobe infiltrate resolved. Electronically Signed by Samuel Hurley MD 07/26/2019 10:07 A
--- NOTE | 2019-07-26 10:56 | IPNPDOC ---
Subjective Date Seen The patient was seen on 07/26/19. Subjective Chief Complaint/HPI Patient is comfortable in no distress. Offers no new complaints General: Denies: ROS Unobtainable, Chills, Night Sweats, Fatigue, Malaise, Normal Appetite, Other Symptoms Constitutional: Denies: Chills, Fever, Malaise, Night Sweats, Weakness, Fatigue, Weight Loss, Lethargy, Other Pulmonary: Denies: Dyspnea, Cough, Pleuritic Chest Pain, Other Symptoms Cardiovascular: Denies: Chest Pain, Palpitations, Orthopnea, Paroxysmal Noc. Dyspnea, Edema, Lt Headedness, Other Symptoms Gastrointestinal: Denies: Nausea, Vomiting, Abdominal Pain, Diarrhea, Constipation, Melena, Hematochezia, Other Symptoms Musculoskeletal: Denies: Neck Pain, Back Pain, Shoulder Pain, Arm Pain, Hand Pain, Leg Pain, Foot Pain, Joint Pain, Muscle Pain, Spasms, Other Symptoms Neurological: Denies: Weakness, Numbness, Incoordination, Change in speech, Confusion, Seizures, Other Symptoms Objective Physical Examination Neck Exam: Positive: Supple Chest Exam: Positive: Clear to auscultation, Normal air movement Heart Exam: Positive: Rate Normal, Normal S1, Normal S2 Abdomen Exam: Positive: Normal bowel sounds, Soft, Tenderness Extremity Exam: Positive: Normal pulses Skin Exam: Positive: Nl turgor and temperature Assessment /Plan Problems (1) Sepsis Status: Resolved Problem Text: Patient has been off antibiotics Previous sepsis has resolved (2) HTN (hypertension) Status: Chronic Problem Text: Continue present meds (3) IRMA (acute kidney injury) Status: Acute Problem Text: Acute on chronic kidney disease. Nephrology signed off. He is on by mouth Lasix at the present time (4) Diabetes mellitus Status: Chronic Problem Text: Fingerstick blood sugar every 6 hours with coverage (5) Hypernatremia Status: Resolved Problem Text: Resolved (6) Leukocytosis Status: Acute Problem Text: Patient is afebrile, asymptomatic. His WBC count is 16.8 Chest x-ray shows resolved left lower lobe infiltrate Repeat blood and urine culture have been ordered Will restart again on doxycycline 100 mg by mouth twice a day is the source of infection is found Plan/VTE VTE Prophylaxis Ordered?: Yes VS, I&O, 24H, Fishbone Vital Signs/I&O Vital Signs Date Time Temp Pulse Resp B/P (MAP) Pulse Ox O2 Delivery O2 Flow Rate FiO2 07/26/19 09:21 121 155/86 07/26/19 06:35 97.9 20 97 Room Air 07/23/19 20:45 2.0 I&O- Last 24 Hours up to 6 AM 07/26/19 06:00 Intake Total 2010 ml Output Total 625 ml Balance 1385 ml Laboratory Data 24H LABS Laboratory Tests 2 07/25/19 11:54: Bedside Glucose (Misc Panel) 202H 07/25/19 16:22: Bedside Glucose (Misc Panel) 204H 07/25/19 20:51: Bedside Glucose (Misc Panel) 80L 07/26/19 04:50: Immature Granulocyte % (Auto) 3.9H, Neutrophils (%) (Auto) 75.4H, Lymphocytes (%) (Auto) 7.7L, Monocytes (%) (Auto) 6.3H, Eosinophils (%) (Auto) 6.3H, Basophils (%) (Auto) 0.4, Neutrophils # (Auto) 12.6H, Lymphocytes # (Auto) 1.3L, Monocytes # (Auto) 1.1H, Eosinophils # (Auto) 1.1H, Basophils # (Auto) 0.1, Nucleated Red Blood Cells % (auto) 0.0, Anion Gap 13, Glomerular Filtration Rate 47.4, Calcium Level 8.5L, Total Bilirubin 0.5, Aspartate Amino Transf (AST/SGOT) 12, Alanine Aminotransferase (ALT/SGPT) 15, Alkaline Phosphatase 136H, Total Protein 5.4L, Albumin 2.2L, Albumin/Globulin Ratio 0.69L CBC/BMP Laboratory Tests 07/26/19 04:50 Microbiology Microbiology 07/26/19 Urine Culture, Received Pending 07/26/19 Blood Culture, Received Pending SO MORALES MD Jul 26, 2019 10:56
[2019-07-26] MEDS: DOXYCYCLINE HYCLATE 100 MG TAB PO SCH ×2 (11:40→20:27)
[2019-07-26 14:00] VITALS: BP 134/75
[2019-07-26] MEDS: SIMVASTATIN 20 MG TAB PO SCH (20:26)
[2019-07-26] MEDS: RAMELTEON 8 MG TAB (ROZEREM) PO SCH (20:26)
[2019-07-26 22:00] VITALS: BP 113/52
[2019-07-27] MEDS: HEPARIN SOD (PORCINE) 5000 UNITS/ML VIAL SQ SCH ×3 (05:25→20:14)
[2019-07-27 06:00] VITALS: BP 144/71
[2019-07-27 06:31] LABS: BASO # 0.1 10^3/uL (0.0-0.2); BASO % 0.3 % (0.0-1.0); EOS # 0.6 10^3/uL (0.0-0.5); EOS % 2.5 % (0.0-3.0); HEMOGLOBIN 9.7 g/dl (13.5-17.5); LYMPH # 1.7 10^3/uL (1.5-5.0); LYMPH % 7.6 % (24.0-44.0); MEAN CORPUSCULAR HEMOGLOBIN 29.5 pg (27.0-33.0); MEAN CORPUSCULAR HGB CONC 32.3 g/dl (32.0-36.5); MEAN CORPUSCULAR VOLUME 91.2 fl (80.0-96.0); MONO % 4.6 % (0.0-5.0); NEUTROPHILS # 18.9 10^3/uL (1.5-8.5); NEUTROPHILS % 82.8 % (36.0-66.0); PLATELET COUNT, AUTOMATED 246 10^3/uL (150-450); RED BLOOD COUNT 3.29 10^6/uL (4.30-6.10); WHITE BLOOD COUNT 22.8 10^3/uL (4.0-10.0)
[2019-07-27 06:53] LABS: BILIRUBIN,TOTAL 0.6 MG/DL (0.2-1.0); CALCIUM LEVEL 8.3 MG/DL (8.8-10.2); CREATININE FOR GFR 1.72 MG/DL (0.70-1.30); GLOMERULAR FILTRATION RATE 41.7 (>42); TOTAL PROTEIN 5.3 GM/DL (6.4-8.2)
[2019-07-27] MEDS: HumaLOG INSULIN (NovoLOG) PER UNIT SC SCH ×4 (07:30→21:00)
[2019-07-27] MEDS: IPRATROPIUM 0.5MG/ALBUTEROL 2.5MG INH SOL UD 3ML (DUONEB)(J7620) NEB SCH ×3 (07:42→20:00)
[2019-07-27] MEDS: MEROPENEM INJ 1 GM in IV 1 EA IV SCH ×3 (08:00→20:17)
[2019-07-27] MEDS: VANICREAM MOISTURIZING SKIN CREAM 113GM TUBE TOP SCH ×2 (09:00→20:17)
--- NOTE | 2019-07-27 09:52 | REP ---
Clinical: Sepsis. Technique: Axial noncontrast images from the thoracic inlet to the upper abdomen with coronal and sagittal re-formations. Findings: Minimal bibasilar atelectasis (left greater than right) and small left pleural reaction. No significant consolidation. No significant effusion. No pneumothorax. Chronic calcified mediastinal and hilar lymph nodes noted without acute adenopathy. Mediastinum demonstrates atherosclerotic changes to the thoracic aorta and coronary arteries without aortic aneurysm or cardiomegaly. No pericardial effusion. Musculoskeletal structures demonstrate old healed rib fractures without acute process. Impression: Very minimal basilar atelectasis and small left pleural reaction. Electronically Signed by Samuel Hurley MD 07/27/2019 09:43 A
--- NOTE | 2019-07-27 09:57 | REP ---
Clinical: Sepsis. Technique: Axial noncontrast images from the lung bases to the pubic symphysis with coronal and sagittal re-formations. Comparison: 07/05/2019. Findings: Current examination demonstrates significant peripancreatic inflammatory changes and fluid collections in the peripancreatic distribution with extension into the lesser sac. Further evaluation is significantly limited by motion artifact and lack of contrast. These findings represent a new process as compared to 07/05/2019 and consistent with acute pancreatitis. Clinical correlation is required. Liver, spleen, bilateral adrenal glands and kidneys are relatively normal / stable. 3.2 cm exophytic left renal lesion is unchanged and consistent with complex cyst. The enteric system is without obstruction or acute inflammatory process. There is evidence of prior resection and colostomy with stable fat-containing parastomal hernia. Pelvis demonstrates normal bladder and age appropriate prostate/seminal vesicles. No significant pelvic ascites. No free air. No retroperitoneal adenopathy. Atherosclerotic changes of the aorta and vasculature noted. Musculoskeletal structures demonstrate degenerative changes. Impression: 1. Significant inflammatory stranding and fluid in the peripancreatic distribution extending into the lesser sac consistent with acute pancreatitis. 2. Remainder examination demonstrates chronic stable changes. Electronically Signed by Samuel Hurley MD 07/27/2019 09:49 A
[2019-07-27] MEDS: propylthiouraciL 50 MG TAB PO SCH ×2 (10:02→20:17)
[2019-07-27] MEDS: MAGNESIUM OXIDE 400 MG TAB (MAG-OX) PO SCH ×2 (10:03→20:16)
[2019-07-27] MEDS: allopurinoL 300 MG TAB PO SCH (10:03)
[2019-07-27] MEDS: FOLIC ACID 1 MG TAB PO SCH (10:03)
[2019-07-27] MEDS: FUROSEMIDE 40 MG TAB PO SCH (10:03)
[2019-07-27] MEDS: FERROUS SULFATE 325MG TAB PO SCH ×2 (10:03→20:16)
[2019-07-27] MEDS: VITAMIN D 1,000 INTERNATIONAL UNITS TABLET PO SCH (10:04)
[2019-07-27] MEDS: ASPIRIN 81 MG CHEW TABLET PO SCH (10:04)
[2019-07-27] MEDS: METOPROLOL TART 50 MG TAB PO SCH ×2 (10:04→20:15)
[2019-07-27] MEDS: busPIRone 5 MG TAB PO SCH ×2 (10:04→20:16)
[2019-07-27] MEDS: predniSONE 5 MG TAB PO SCH (10:05)
[2019-07-27] MEDS: PANTOPRAZOLE 40MG TAB (PROTONIX) PO SCH (10:05)
--- NOTE | 2019-07-27 12:53 | IPNPDOC ---
Subjective Date Seen The patient was seen on 07/27/19. Subjective Chief Complaint/HPI Patient offers no complaints. Still wants to leave offers no complaints of chest pain, shortness of breath or nausea, vomiting, abdominal pain General: Denies: ROS Unobtainable, Chills, Night Sweats, Fatigue, Malaise, Norm al Appetite, Other Symptoms Constitutional: Denies: Chills, Fever, Malaise, Night Sweats, Weakness, Fatigue, Weight Loss, Lethargy, Other Eyes: Denies: Pain, Vision change, Conjunctivae inflammation, Eyelid inflammation, Redness, Other Pulmonary: Denies: Dyspnea, Cough, Pleuritic Chest Pain, Other Symptoms Cardiovascular: Denies: Chest Pain, Palpitations, Orthopnea, Paroxysmal Noc. Dyspnea, Edema, Lt Headedness, Other Symptoms Gastrointestinal: Denies: Nausea, Vomiting, Abdominal Pain, Diarrhea, Constipation, Melena, Hematochezia, Other Symptoms Musculoskeletal: Denies: Neck Pain, Back Pain, Shoulder Pain, Arm Pain, Hand Pain, Leg Pain, Foot Pain, Joint Pain, Muscle Pain, Spasms, Other Symptoms Neurological: Denies: Weakness, Numbness, Incoordination, Change in speech, Confusion, Seizures, Other Symptoms Objective Physical Examination Neck Exam: Positive: Supple Chest Exam: Positive: Clear to auscultation, Normal air movement Heart Exam: Positive: Rate Normal, Normal S1, Normal S2 Abdomen Exam: Positive: Normal bowel sounds, Soft, Tenderness Extremity Exam: Positive: Normal pulses Skin Exam: Positive: Nl turgor and temperature Assessment /Plan Problems (1) Acute pancreatitis Status: Acute Problem Text: Abdominal CT was done without contrast is consistent with possible acute pancreatitis even though patient offers no complaints and but he does have a leukocytosis. Will order stat serum lipase and pro calcitonin levels Will continue meropenem in the meantime was still pancreatitis confirmed, then we will DC the antibiotics Will also start IV fluids Continue all other present medical medications (2) Leukocytosis Status: Acute Problem Text: Etiology was unknown but most likely has acute pancreatitis Repeat level in a.m. Patient is afebrile and asymptomatic (3) HTN (hypertension) Status: Chronic Problem Text: Continue present meds (4) IRMA (acute kidney injury) Status: Acute Problem Text: Acute on chronic kidney disease. Nephrology signed off. He is on by mouth Lasix at the present time (5) Diabetes mellitus Status: Chronic Problem Text: Fingerstick blood sugar every 6 hours with coverage (6) Hypernatremia Status: Resolved Problem Text: Resolved (7) Sepsis Status: Resolved Problem Text: Patient has been off antibiotics Previous sepsis has resolved Plan/VTE VTE Prophylaxis Ordered?: Yes VS, I&O, 24H, Fishbone Vital Signs/I&O Vital Signs Date Time Temp Pulse Resp B/P (MAP) Pulse Ox O2 Delivery O2 Flow Rate FiO2 07/27/19 10:04 115 144/71 07/27/19 06:00 98.7 19 93 Room Air 07/23/19 20:45 2.0 I&O- Last 24 Hours up to 6 AM 07/27/19 05:59 Intake Total 1920 ml Output Total 580 ml Balance 1340 ml Laboratory Data 24H LABS Laboratory Tests 2 07/26/19 17:14: Bedside Glucose (Misc Panel) 124H 07/26/19 20:03: Bedside Glucose (Misc Panel) 97 07/27/19 06:04: Immature Granulocyte % (Auto) 2.2, Neutrophils (%) (Auto) 82.8H, Lymphocytes (%) (Auto) 7.6L, Monocytes (%) (Auto) 4.6, Eosinophils (%) (Auto) 2.5, Basophils (%) (Auto) 0.3, Neutrophils # (Auto) 18.9H, Lymphocytes # (Auto) 1.7, Monocytes # (Auto) 1.0H, Eosinophils # (Auto) 0.6H, Basophils # (Auto) 0.1, Nucleated Red Blood Cells % (auto) 0.0, Anion Gap 11, Glomerular Filtration Rate 41.7L, Calcium Level 8.3L, Total Bilirubin 0.6, Aspartate Amino Transf (AST/SGOT) 15, Alanine Aminotransferase (ALT/SGPT) 13, Alkaline Phosphatase 127H, Total Protein 5.3L, Albumin 2.0L, Albumin/Globulin Ratio 0.61L 07/27/19 11:25: Bedside Glucose (Misc Panel) 287H CBC/BMP Laboratory Tests 07/27/19 06:04 Microbiology Microbiology 07/26/19 Urine Culture - Final, Complete 07/26/19 Blood Culture - Preliminary, Resulted No growth after 24 hours . All specim... SO MORALES MD Jul 27, 2019 12:53
[2019-07-27 14:00] VITALS: BP 180/92
[2019-07-27] MEDS: NS 1,000 ML IV SCH (15:34)
[2019-07-27 20:05] VITALS: BP 139/85
[2019-07-27] MEDS: RAMELTEON 8 MG TAB (ROZEREM) PO SCH (20:15)
[2019-07-27] MEDS: SIMVASTATIN 20 MG TAB PO SCH (20:16)
[2019-07-27] MEDS: ALBUTEROL SULFATE 2.5 MG/0.5 ML INH NEB SOLN NEB PRN (23:29)
[2019-07-28 05:28] VITALS: BP 141/84
[2019-07-28] MEDS: NS 1,000 ML IV SCH (05:33)
[2019-07-28] MEDS: HEPARIN SOD (PORCINE) 5000 UNITS/ML VIAL SQ SCH ×3 (05:33→21:28)
[2019-07-28 07:01] LABS: BASO # 0.1 10^3/uL (0.0-0.2); BASO % 0.5 % (0.0-1.0); EOS # 1.1 10^3/uL (0.0-0.5); EOS % 5.1 % (0.0-3.0); HEMATOCRIT 30.5 % (42.0-52.0); HEMOGLOBIN 9.5 g/dl (13.5-17.5); LYMPH # 1.4 10^3/uL (1.5-5.0); LYMPH % 6.2 % (24.0-44.0); MEAN CORPUSCULAR HEMOGLOBIN 29.1 pg (27.0-33.0); MEAN CORPUSCULAR HGB CONC 31.1 g/dl (32.0-36.5); MEAN CORPUSCULAR VOLUME 93.3 fl (80.0-96.0); MONO # 1.5 10^3/uL (0.0-0.8); MONO % 6.9 % (0.0-5.0); NEUTROPHILS # 17.3 10^3/uL (1.5-8.5); NEUTROPHILS % 78.7 % (36.0-66.0); PLATELET COUNT, AUTOMATED 245 10^3/uL (150-450); RED BLOOD COUNT 3.27 10^6/uL (4.30-6.10)
[2019-07-28] MEDS: IPRATROPIUM 0.5MG/ALBUTEROL 2.5MG INH SOL UD 3ML (DUONEB)(J7620) NEB SCH ×3 (07:03→19:54)
[2019-07-28 07:23] LABS: ALBUMIN 2.1 GM/DL (3.2-5.2); BILIRUBIN,TOTAL 0.6 MG/DL (0.2-1.0); CALCIUM LEVEL 8.3 MG/DL (8.8-10.2); CREATININE FOR GFR 1.43 MG/DL (0.70-1.30); GLOMERULAR FILTRATION RATE 51.6 (>42); POTASSIUM SERUM 3.9 MEQ/L (3.5-5.1); TOTAL PROTEIN 5.4 GM/DL (6.4-8.2)
[2019-07-28] MEDS: HumaLOG INSULIN (NovoLOG) PER UNIT SC SCH ×5 (07:30→21:28)
[2019-07-28] MEDS: ASPIRIN 81 MG CHEW TABLET PO SCH (08:13)
[2019-07-28] MEDS: METOPROLOL TART 50 MG TAB PO SCH ×2 (08:13→21:30)
[2019-07-28] MEDS: MEROPENEM INJ 1 GM in IV 1 EA IV SCH ×2 (08:14→19:33)
[2019-07-28] MEDS: VITAMIN D 1,000 INTERNATIONAL UNITS TABLET PO SCH (08:14)
[2019-07-28] MEDS: propylthiouraciL 50 MG TAB PO SCH ×2 (08:14→21:29)
[2019-07-28] MEDS: PANTOPRAZOLE 40MG TAB (PROTONIX) PO SCH (08:14)
[2019-07-28] MEDS: allopurinoL 300 MG TAB PO SCH (08:14)
[2019-07-28] MEDS: MAGNESIUM OXIDE 400 MG TAB (MAG-OX) PO SCH ×2 (08:14→21:27)
[2019-07-28] MEDS: FUROSEMIDE 40 MG TAB PO SCH (08:15)
[2019-07-28] MEDS: busPIRone 5 MG TAB PO SCH ×2 (08:15→21:28)
[2019-07-28] MEDS: FERROUS SULFATE 325MG TAB PO SCH ×2 (08:15→21:27)
[2019-07-28] MEDS: FOLIC ACID 1 MG TAB PO SCH (08:15)
[2019-07-28] MEDS: predniSONE 5 MG TAB PO SCH (08:15)
[2019-07-28] MEDS: VANICREAM MOISTURIZING SKIN CREAM 113GM TUBE TOP SCH ×2 (08:16→21:30)
--- NOTE | 2019-07-28 10:43 | IPNPDOC ---
Subjective Date Seen The patient was seen on 07/28/19. Subjective Chief Complaint/HPI Patient offers no complaints. No abdominal pain. Wants to eat now. No fever, no shortness of breath, no chest pain General: Denies: ROS Unobtainable, Chills, Night Sweats, Fatigue, Malaise, Normal Appetite, Other Symptoms Constitutional: Denies: Chills, Fever, Malaise, Night Sweats, Weakness, Fatigu e, Weight Loss, Lethargy, Other Eyes: Denies: Pain, Vision change, Conjunctivae inflammation, Eyelid inflammation, Redness, Other Pulmonary: Denies: Dyspnea, Cough, Pleuritic Chest Pain, Other Symptoms Cardiovascular: Denies: Chest Pain, Palpitations, Orthopnea, Paroxysmal Noc. Dyspnea, Edema, Lt Headedness, Other Symptoms Gastrointestinal: Denies: Nausea, Vomiting, Abdominal Pain, Diarrhea, Constipation, Melena, Hematochezia, Other Symptoms Endocrine: Denies: Polydipsia, Polyphagia, Polyuria, Heat Intolerance, Cold Intolerance, Other Endocrine Sx Musculoskeletal: Denies: Neck Pain, Back Pain, Shoulder Pain, Arm Pain, Hand Pain, Leg Pain, Foot Pain, Joint Pain, Muscle Pain, Spasms, Other Symptoms Neurological: Denies: Weakness, Numbness, Incoordination, Change in speech, Confusion, Seizures, Other Symptoms Objective Physical Examination Neck Exam: Positive: Supple Chest Exam: Positive: Clear to auscultation, Normal air movement Heart Exam: Positive: Rate Normal, Normal S1, Normal S2 Abdomen Exam: Positive: Normal bowel sounds, Soft, Tenderness Extremity Exam: Positive: Normal pulses Skin Exam: Positive: Nl turgor and temperature Assessment /Plan Problems (1) Acute pancreatitis Status: Acute Problem Text: Abdominal CT was done without contrast is consistent with possible acute pancreatitis even though patient offers no complaints and but he does have a leukocytosis. Serum lipase level is 245. Pro-calcitonin is still pending Patient is completely asymptomatic. Will DC IV fluids and is started feeding him as tolerated Clinically. Monitor leukocytosis and lipase level (2) Leukocytosis Status: Acute Problem Text: Etiology was unknown but most likely has acute pancreatitis WBC count is still 22,000, but patient is asymptomatic, afebrile Patient is already on meropenem as a prophylactic treatment Will continue the same and follow labs in a.m. (3) HTN (hypertension) Status: Chronic Problem Text: Continue present meds (4) IRMA (acute kidney injury) Status: Acute Problem Text: Acute on chronic kidney disease. Nephrology signed off. He is on by mouth Lasix at the present time (5) Diabetes mellitus Status: Chronic Problem Text: Fingerstick blood sugar every 6 hours with coverage (6) Hypernatremia Status: Resolved Problem Text: Resolved Plan/VTE VTE Prophylaxis Ordered?: Yes VS, I&O, 24H, Fishbone Vital Signs/I&O Vital Signs Date Time Temp Pulse Resp B/P (MAP) Pulse Ox O2 Delivery O2 Flow Rate FiO2 07/28/19 08:13 109 141/84 07/28/19 05:28 98.9 18 100 Room Air 07/23/19 20:45 2.0 I&O- Last 24 Hours up to 6 AM 07/28/19 06:00 Intake Total 2416 ml Output Total 1575 ml Balance 841 ml Laboratory Data 24H LABS Laboratory Tests 2 07/27/19 11:25: Bedside Glucose (Misc Panel) 287H 07/27/19 13:00: Lipase 245 07/27/19 16:31: Bedside Glucose (Misc Panel) 143H 07/27/19 19:58: Bedside Glucose (Misc Panel) 216H 07/28/19 06:40: Immature Granulocyte % (Auto) 2.6, Neutrophils (%) (Auto) 78.7H, Lymphocytes (%) (Auto) 6.2L, Monocytes (%) (Auto) 6.9H, Eosinophils (%) (Auto) 5.1H, Basophils (%) (Auto) 0.5, Neutrophils # (Auto) 17.3H, Lymphocytes # (Auto) 1.4L, Monocytes # (Auto) 1.5H, Eosinophils # (Auto) 1.1H, Basophils # (Auto) 0.1, Nucleated Red Blood Cells % (auto) 0.0, Anion Gap 11, Glomerular Filtration Rate 51.6, Calcium Level 8.3L, Total Bilirubin 0.6, Aspartate Amino Transf (AST/SGOT) 16, Alanine Aminotransferase (ALT/SGPT) 12, Alkaline Phosphatase 137H, Total Protein 5.4L, Albumin 2.1L, Albumin/Globulin Ratio 0.64L CBC/BMP Laboratory Tests 07/28/19 06:40 Microbiology Microbiology 07/26/19 Urine Culture - Final, Complete 07/26/19 Blood Culture - Preliminary, Resulted No Growth after 48 hours. All Specime... SO MORALES MD Jul 28, 2019 10:43
[2019-07-28 13:36] VITALS: BP 117/61
[2019-07-28 19:50] VITALS: BP 121/55
[2019-07-28] MEDS: SIMVASTATIN 20 MG TAB PO SCH (21:27)
[2019-07-28] MEDS: RAMELTEON 8 MG TAB (ROZEREM) PO SCH (21:29)
[2019-07-29] MEDS: IPRATROPIUM 0.5MG/ALBUTEROL 2.5MG INH SOL UD 3ML (DUONEB)(J7620) NEB SCH ×4 (02:00→22:13)
[2019-07-29] MEDS: HEPARIN SOD (PORCINE) 5000 UNITS/ML VIAL SQ SCH ×3 (05:26→21:00)
[2019-07-29 06:23] VITALS: BP 122/65
[2019-07-29 07:11] LABS: BASO # 0.1 10^3/uL (0.0-0.2); BASO % 0.6 % (0.0-1.0); EOS # 1.2 10^3/uL (0.0-0.5); EOS % 6.2 % (0.0-3.0); HEMATOCRIT 30.9 % (42.0-52.0); HEMOGLOBIN 9.7 g/dl (13.5-17.5); LYMPH # 1.6 10^3/uL (1.5-5.0); LYMPH % 7.9 % (24.0-44.0); MEAN CORPUSCULAR HEMOGLOBIN 29.3 pg (27.0-33.0); MEAN CORPUSCULAR HGB CONC 31.4 g/dl (32.0-36.5); MEAN CORPUSCULAR VOLUME 93.4 fl (80.0-96.0); MONO # 1.1 10^3/uL (0.0-0.8); MONO % 5.7 % (0.0-5.0); NEUTROPHILS # 15.3 10^3/uL (1.5-8.5); NEUTROPHILS % 76.2 % (36.0-66.0); PLATELET COUNT, AUTOMATED 230 10^3/uL (150-450); RED BLOOD COUNT 3.31 10^6/uL (4.30-6.10); WHITE BLOOD COUNT 20.1 10^3/uL (4.0-10.0)
[2019-07-29 08:00] LABS: BILIRUBIN,TOTAL 0.5 MG/DL (0.2-1.0); CALCIUM LEVEL 8.3 MG/DL (8.8-10.2); CREATININE FOR GFR 1.47 MG/DL (0.70-1.30); TOTAL PROTEIN 5.4 GM/DL (6.4-8.2)
[2019-07-29] MEDS: HumaLOG INSULIN (NovoLOG) PER UNIT SC SCH ×5 (08:23→21:00)
[2019-07-29] MEDS: MEROPENEM INJ 1 GM in IV 1 EA IV SCH ×2 (08:23→20:55)
[2019-07-29] MEDS: FUROSEMIDE 40 MG TAB PO SCH (08:24)
[2019-07-29] MEDS: PANTOPRAZOLE 40MG TAB (PROTONIX) PO SCH (08:24)
[2019-07-29] MEDS: FOLIC ACID 1 MG TAB PO SCH (08:24)
[2019-07-29] MEDS: allopurinoL 300 MG TAB PO SCH (08:24)
[2019-07-29] MEDS: MAGNESIUM OXIDE 400 MG TAB (MAG-OX) PO SCH ×2 (08:24→20:58)
[2019-07-29] MEDS: ASPIRIN 81 MG CHEW TABLET PO SCH (08:24)
[2019-07-29] MEDS: FERROUS SULFATE 325MG TAB PO SCH ×2 (08:24→20:57)
[2019-07-29] MEDS: predniSONE 5 MG TAB PO SCH (08:24)
[2019-07-29] MEDS: METOPROLOL TART 50 MG TAB PO SCH ×2 (08:25→20:58)
[2019-07-29] MEDS: VITAMIN D 1,000 INTERNATIONAL UNITS TABLET PO SCH (08:25)
[2019-07-29] MEDS: propylthiouraciL 50 MG TAB PO SCH ×2 (08:25→20:59)
[2019-07-29] MEDS: busPIRone 5 MG TAB PO SCH ×2 (08:25→20:57)
[2019-07-29] MEDS: VANICREAM MOISTURIZING SKIN CREAM 113GM TUBE TOP SCH ×2 (08:26→21:00)
--- NOTE | 2019-07-29 09:13 | IPNPDOC ---
Subjective Date Seen The patient was seen on 07/29/19. Subjective Chief Complaint/HPI Patient is comfortable offers no complaints. Wants to leave the hospital General: Denies: ROS Unobtainable, Chills, Night Sweats, Fatigue, Malaise, Normal Appetite, Other Symptoms Constitutional: Denies: Chills, Fever, Malaise, Night Sweats, Weakness, Fatigue, Weight Loss, Lethargy, Other Pulmonary: Denies: Dyspnea, Cough, Pleuritic Chest Pain, Other Symptoms Cardiovascular: Denies: Chest Pain, Palpitations, Orthopnea, Paroxysmal Noc. Dyspnea, Edema, Lt Headedness, Other Symptoms Gastrointestinal: Denies: Nausea, Vomiting, Abdominal Pain, Diarrhea, Constipation, Melena, Hematochezia, Other Symptoms Musculoskeletal: Denies: Neck Pain, Back Pain, Shoulder Pain, Arm Pain, Hand Pain, Leg Pain, Foot Pain, Joint Pain, Muscle Pain, Spasms, Other Symptoms Neurological: Denies: Weakness, Numbness, Incoordination, Change in speech, Confusion, Seizures, Other Symptoms Objective Physical Examination Neck Exam: Positive: Supple Chest Exam: Positive: Clear to auscultation, Normal air movement Heart Exam: Positive: Rate Normal, Normal S1, Normal S2 Abdomen Exam: Positive: Normal bowel sounds, Soft, Tenderness Extremity Exam: Positive: Normal pulses Skin Exam: Positive: Nl turgor and temperature Assessment /Plan Problems (1) Acute pancreatitis Status: Acute Problem Text: Abdominal CT was done without contrast is consistent with possible acute pancreatitis even though patient offers no complaints and but he does have a leukocytosis. Serum lipase level is 245. Pro-calcitonin is still pending Patient is tolerating oral feeding very well. No more abdominal pain examination is within normal limits WBC count is slowly decreasing. At the present time is 20,000, but patient is afebrile, asymptomatic Will continue meropenem and closely monitor CBC (2) Leukocytosis Status: Acute Problem Text: Etiology was unknown but most likely has acute pancreatitis Sent WBC count is 20,000. He is asymptomatic, afebrile Patient is already on meropenem as a prophylactic treatment Will continue the same and follow labs in a.m. (3) HTN (hypertension) Status: Chronic Problem Text: Continue present meds (4) IRMA (acute kidney injury) Status: Acute Problem Text: Acute on chronic kidney disease. Improving renal functions Nephrology signed off. He is on by mouth Lasix at the present time (5) Diabetes mellitus Status: Chronic Problem Text: Fingerstick blood sugar every 6 hours with coverage (6) Hypernatremia Status: Resolved Problem Text: Resolved Plan/VTE VTE Prophylaxis Ordered?: Yes VS, I&O, 24H, Fishbone Vital Signs/I&O Vital Signs Date Time Temp Pulse Resp B/P (MAP) Pulse Ox O2 Delivery O2 Flow Rate FiO2 07/29/19 08:25 102 122/65 07/29/19 06:23 98.6 16 98 Nasal Cannula 2.0 I&O- Last 24 Hours up to 6 AM 07/29/19 06:00 Intake Total 2520 ml Output Total 1625 ml Balance 895 ml Laboratory Data 24H LABS Laboratory Tests 2 07/28/19 11:47: Bedside Glucose (Misc Panel) 187H 07/28/19 19:47: Bedside Glucose (Misc Panel) 276H 07/29/19 06:47: Immature Granulocyte % (Auto) 3.4H, Neutrophils (%) (Auto) 76.2H, Lymphocytes (%) (Auto) 7.9L, Monocytes (%) (Auto) 5.7H, Eosinophils (%) (Auto) 6.2H, Basophils (%) (Auto) 0.6, Neutrophils # (Auto) 15.3H, Lymphocytes # (Auto) 1.6, Monocytes # (Auto) 1.1H, Eosinophils # (Auto) 1.2H, Basophils # (Auto) 0.1, Nucleated Red Blood Cells % (auto) 0.0, Anion Gap 7L, Glomerular Filtration Rate 50.0, Calcium Level 8.3L, Total Bilirubin 0.5, Aspartate Amino Transf (AST/SGOT) 16, Alanine Aminotransferase (ALT/SGPT) 11L, Alkaline Phosphatase 122H, Total Protein 5.4L, Albumin 2.0L, Albumin/Globulin Ratio 0.59L CBC/BMP Laboratory Tests 07/29/19 06:47 Microbiology Microbiology 07/26/19 Urine Culture - Final, Complete 07/26/19 Blood Culture - Preliminary, Resulted No Growth after 72 hours. All specime... SO MORALES MD Jul 29, 2019 09:13
[2019-07-29 14:00] VITALS: BP 132/62
[2019-07-29] MEDS: SIMVASTATIN 20 MG TAB PO SCH (20:57)
[2019-07-29] MEDS: RAMELTEON 8 MG TAB (ROZEREM) PO SCH (20:58)
[2019-07-29 22:00] VITALS: BP 168/71
[2019-07-30] MEDS: IPRATROPIUM 0.5MG/ALBUTEROL 2.5MG INH SOL UD 3ML (DUONEB)(J7620) NEB SCH ×4 (02:00→20:55)
[2019-07-30] MEDS: HEPARIN SOD (PORCINE) 5000 UNITS/ML VIAL SQ SCH ×3 (05:35→22:17)
[2019-07-30 06:00] VITALS: BP 110/72
[2019-07-30 06:15] LABS: BASO # 0.1 10^3/uL (0.0-0.2); BASO % 0.3 % (0.0-1.0); EOS # 0.7 10^3/uL (0.0-0.5); EOS % 2.5 % (0.0-3.0); HEMATOCRIT 28.9 % (42.0-52.0); HEMOGLOBIN 9.1 g/dl (13.5-17.5); LYMPH # 1.8 10^3/uL (1.5-5.0); LYMPH % 6.3 % (24.0-44.0); MEAN CORPUSCULAR HEMOGLOBIN 29.2 pg (27.0-33.0); MEAN CORPUSCULAR HGB CONC 31.5 g/dl (32.0-36.5); MEAN CORPUSCULAR VOLUME 92.6 fl (80.0-96.0); MONO # 1.6 10^3/uL (0.0-0.8); MONO % 5.7 % (0.0-5.0); NEUTROPHILS # 24.1 10^3/uL (1.5-8.5); NEUTROPHILS % 83.5 % (36.0-66.0); PLATELET COUNT, AUTOMATED 215 10^3/uL (150-450); RED BLOOD COUNT 3.12 10^6/uL (4.30-6.10); WHITE BLOOD COUNT 28.9 10^3/uL (4.0-10.0)
[2019-07-30 06:44] LABS: ALBUMIN 1.9 GM/DL (3.2-5.2); BILIRUBIN,TOTAL 0.9 MG/DL (0.2-1.0); CALCIUM LEVEL 8.4 MG/DL (8.8-10.2); CREATININE FOR GFR 1.54 MG/DL (0.70-1.30); GLOMERULAR FILTRATION RATE 47.4 (>42); POTASSIUM SERUM 4.3 MEQ/L (3.5-5.1); TOTAL PROTEIN 5.3 GM/DL (6.4-8.2)
[2019-07-30] MEDS: HumaLOG INSULIN (NovoLOG) PER UNIT SC SCH ×4 (08:11→22:17)
[2019-07-30] MEDS: MAGNESIUM OXIDE 400 MG TAB (MAG-OX) PO SCH ×2 (08:13→22:09)
[2019-07-30] MEDS: ASPIRIN 81 MG CHEW TABLET PO SCH (08:17)
[2019-07-30] MEDS: METOPROLOL TART 50 MG TAB PO SCH ×2 (08:17→22:12)
[2019-07-30] MEDS: allopurinoL 300 MG TAB PO SCH (08:18)
[2019-07-30] MEDS: FUROSEMIDE 40 MG TAB PO SCH (08:18)
[2019-07-30] MEDS: predniSONE 5 MG TAB PO SCH (08:18)
[2019-07-30] MEDS: VITAMIN D 1,000 INTERNATIONAL UNITS TABLET PO SCH (08:18)
[2019-07-30] MEDS: FOLIC ACID 1 MG TAB PO SCH (08:18)
[2019-07-30] MEDS: FERROUS SULFATE 325MG TAB PO SCH ×2 (08:18→22:13)
[2019-07-30] MEDS: busPIRone 5 MG TAB PO SCH ×2 (08:19→22:09)
[2019-07-30] MEDS: propylthiouraciL 50 MG TAB PO SCH ×2 (08:19→22:14)
[2019-07-30] MEDS: PANTOPRAZOLE 40MG TAB (PROTONIX) PO SCH (08:19)
[2019-07-30] MEDS: VANICREAM MOISTURIZING SKIN CREAM 113GM TUBE TOP SCH ×2 (08:29→22:16)
--- NOTE | 2019-07-30 10:56 | IPNPDOC ---
Subjective Date Seen The patient was seen on 07/30/19. Subjective Chief Complaint/HPI Patient is asymptomatic, afebrile, in no apparent distress, no diarrhea, no abdominal pain, no nausea, no vomiting General: Denies: ROS Unobtainable, Chills, Night Sweats, Fatigue, Malaise, Normal Appetite, Other Symptoms Constitutional: Denies: Chills, Fever, Malaise, Night Sweats, Weakness, Fatigu e, Weight Loss, Lethargy, Other Pulmonary: Denies: Dyspnea, Cough, Pleuritic Chest Pain, Other Symptoms Cardiovascular: Denies: Chest Pain, Palpitations, Orthopnea, Paroxysmal Noc. Dyspnea, Edema, Lt Headedness, Other Symptoms Gastrointestinal: Denies: Nausea, Vomiting, Abdominal Pain, Diarrhea, Constipation, Melena, Hematochezia, Other Symptoms Musculoskeletal: Denies: Neck Pain, Back Pain, Shoulder Pain, Arm Pain, Hand Pain, Leg Pain, Foot Pain, Joint Pain, Muscle Pain, Spasms, Other Symptoms Neurological: Denies: Weakness, Numbness, Incoordination, Change in speech, Confusion, Seizures, Other Symptoms Objective Physical Examination General Exam: Positive: Alert, Cooperative Neck Exam: Positive: Supple Chest Exam: Positive: Clear to auscultation, Normal air movement Heart Exam: Positive: Rate Normal, Normal S1, Normal S2 Abdomen Exam: Positive: Normal bowel sounds, Soft, Other (no tenderness around his stoma) Extremity Exam: Positive: Normal pulses Skin Exam: Positive: Nl turgor and temperature Assessment /Plan Problems (1) Acute pancreatitis Status: Acute Problem Text: Abdominal CT was done without contrast is consistent with possible acute pancreatitis even though patient offers no complaints and but he does have a leukocytosis. Serum lipase level is 245. Pro-calcitonin today from 1027, came out to be 1.25 Patient is tolerating oral feeding very well No evidence of diarrhea, nausea or vomiting: Will order stool for C. difficile Questionable peripancreatic abscess causing leukocytosis Surgical evaluation with Dr. Camejo has been requested for further recommendations I will DC meropenem and start patient on cefepime and vancomycin for broader spectrum coverage as the source of infection is identified . Unfortunately infectious disease consult and is not available this week . We will continue monitoring patient's CBC, CMP and adjust management. According to pending workup and any recommendations from surgery (2) Leukocytosis Status: Acute Problem Text: Etiology is still unknown. Patient's WBC count is elevated to 28.9 today and calcitonin from 1227, came out today be positive to 1.25 Repeat blood cultures and urine cultures came out negative. CT chest, nonspecific CT of the abdomen showed possible inflammation versus infection of the vkng-pancreatic area Will DC meropenem and is started on broad-spectrum coverage with Vanco and cefepime until the source of infection is identified consult has been requested to rule out peripancreatic abscess Patient is afebrile, asymptomatic despite stay. Abnormal laboratory work (3) HTN (hypertension) Status: Chronic Problem Text: Continue present meds (4) IRMA (acute kidney injury) Status: Acute Problem Text: Acute on chronic kidney disease. Improving renal functions Nephrology signed off. He is on by mouth Lasix at the present time (5) Diabetes mellitus Status: Chronic Problem Text: Fingerstick blood sugar every 6 hours with coverage (6) Hypernatremia Status: Resolved Problem Text: Resolved Plan/VTE VTE Prophylaxis Ordered?: Yes VS, I&O, 24H, Fishbone Vital Signs/I&O Vital Signs Date Time Temp Pulse Resp B/P (MAP) Pulse Ox O2 Delivery O2 Flow Rate FiO2 07/30/19 08:17 109 115/72 07/30/19 06:00 97.7 19 98 Nasal Cannula 1.0 I&O- Last 24 Hours up to 6 AM 07/30/19 06:00 Intake Total 3180 ml Output Total 1450 ml Balance 1730 ml Laboratory Data 24H LABS Laboratory Tests 2 07/29/19 11:25: Bedside Glucose (Misc Panel) 214H 07/29/19 16:27: Bedside Glucose (Misc Panel) 253H 07/29/19 20:06: Bedside Glucose (Misc Panel) 246H 07/30/19 05:56: Immature Granulocyte % (Auto) 1.7, Neutrophils (%) (Auto) 83.5H, Lymphocytes (%) (Auto) 6.3L, Monocytes (%) (Auto) 5.7H, Eosinophils (%) (Auto) 2.5, Basophils ( %) (Auto) 0.3, Neutrophils # (Auto) 24.1H, Lymphocytes # (Auto) 1.8, Monocytes # (Auto) 1.6H, Eosinophils # (Auto) 0.7H, Basophils # (Auto) 0.1, Nucleated Red Blood Cells % (auto) 0.0, Anion Gap 9, Glomerular Filtration Rate 47.4, Calcium Level 8.4L, Total Bilirubin 0.9#, Aspartate Amino Transf (AST/SGOT) 17, Alanine Aminotransferase (ALT/SGPT) 9L, Alkaline Phosphatase 129H, Total Protein 5.3L, Albumin 1.9L, Albumin/Globulin Ratio 0.56L 07/30/19 10:02: CBC/BMP Laboratory Tests 07/30/19 05:56 Microbiology Microbiology 07/26/19 Urine Culture - Final, Complete 07/26/19 Blood Culture - Preliminary, Resulted No Growth after 72 hours. All specime... SO MORALES MD Jul 30, 2019 10:56
[2019-07-30] MEDS ORDERED: VANCOMYCIN HCL 750 MG, VIAL MATE ADAPTER 1 EACH in D5W 250 ML IV SCH (11:00)
[2019-07-30] MEDS ORDERED: CEFEPIME HCL 1 GM in D5W MINI-BAG PLUS 50 ML IV SCH (11:00)
--- NOTE | 2019-07-30 11:44 | PHACANCOPD ---
PHARMACY VANCOMYCIN DOSING Pt Demographics Demographics Patient Age:74 , Weight:86.300 , Gender: male Adjusted Body Weight Date: 07/05/19, Adjusted Body Weight: [76.8] Kg Events Past 24 Hours Events Past 24 Hours: YES: Elevation in WBC Vancomycin Vancomycin indication: severe sepsis Vancomycin Target Ranges: 15-20 mcg/ml Vancomycin Load Y/N: Yes Load Dose Date Time Vancomycin Load Dose: 2 GM Date: 07/30/19 Time: 1400 Vancomycin Dose Date. 07/30/19. [1250 MG IV Q24H] Intermittent Dosing?: Yes Labs Micro Microbiology 07/26/19 Urine Culture - Final, Complete 07/26/19 Blood Culture - Preliminary, Resulted No Growth after 72 hours. All specime... Creatinine Clearance Date:07/10/19. Creatinine Clearance: [35ml/min]. Date:07/07/19. Creatinine Clearance: [~46]. Assessment and Plan Maintaining Current Dose?: Yes Reason for dose change: No Dose Change Pharmacist Note Pharmacist Note Date: 07/30/19. Pharmacist note: Pharmacy consulted for Vancomycin dosing, aiming for a trough of 15-20 mcg/ml. Treated earlier this month with vancomycin however patient was on CRRT at that time. SCr has improved since, we'll load with 2 GM then follow with 1250 mg IV q24h. Pharmacy will continue to monitor and make adjustments as needed. Date: 07/11/19. Pharmacist note: Pt vancomycin level came back this AM at 15mcg/ml. The patient will receive 500mg IV once today at 08:00. Another level is scheduled for tomorrow am. We will continue to monitor and adjust the dose as needed. Date: 07/10/19. Pharmacist note:The AM vancomycin level returned at 21mcg/ml. SCR is increased to 1.69mg/dl today. Dosing will be held today. A vancomycin level is scheduled for 07/11 AM we will continue to monitor and adjust the dose as needed. 07/09: Patient had a trough drawn this morning that resulted in 24.9, 9 hours after last dose. His SCR is 0.85 today, down from 2.45 upon admission. Patient had a second random drawn at 1234 which resulted at 23.6. Given the patient did not clear much of the antibiotic in 6 hours, and his CRRT has been discontinued he will not receive a dose of Vancomycin today. A random was scheduled for tomorrow morning. A lasix drip has also been started today. We will continue to monitor and make adjustments as necessary. Date: 07/05/19. Pharmacist note: Trough of 20.6 is acceptable. Will continue current dosing. Will continue to monitor and make adjustments as needed. [facility] Jul 30, 2019 11:44
[2019-07-30 12:50] LABS: CLOSTRIDIUM DIFFICILE PCR NEGATIVE (NEGATIVE)
[2019-07-30] MEDS: CEFEPIME HCL 2 GM in D5W MINI-BAG PLUS 50 ML IV SCH (12:51)
[2019-07-30 14:00] VITALS: BP 118/70
[2019-07-30] MEDS: VANCOMYCIN HCL 1,000 MG, VIAL MATE ADAPTER 1 EACH in D5W 250 ML IV SCH ×2 (14:00→16:01)
[2019-07-30] MEDS ORDERED: ACETAMINOPHEN TAB 650MG DOSE (2X325MG) PO PRN (21:30)
[2019-07-30 22:00] VITALS: BP 122/77
[2019-07-30] MEDS: SIMVASTATIN 20 MG TAB PO SCH (22:13)
[2019-07-30] MEDS: RAMELTEON 8 MG TAB (ROZEREM) PO SCH (22:13)
[2019-07-31] MEDS: CEFEPIME HCL 2 GM in D5W MINI-BAG PLUS 50 ML IV SCH ×2 (01:11→14:00)
[2019-07-31] MEDS: IPRATROPIUM 0.5MG/ALBUTEROL 2.5MG INH SOL UD 3ML (DUONEB)(J7620) NEB SCH ×4 (01:13→20:46)
[2019-07-31] MEDS: HEPARIN SOD (PORCINE) 5000 UNITS/ML VIAL SQ SCH ×3 (05:23→21:19)
[2019-07-31 06:00] VITALS: BP 118/58
[2019-07-31 07:04] LABS: BASO # 0.1 10^3/uL (0.0-0.2); BASO % 0.3 % (0.0-1.0); EOS # 0.6 10^3/uL (0.0-0.5); EOS % 2.1 % (0.0-3.0); HEMATOCRIT 29.6 % (42.0-52.0); HEMOGLOBIN 9.5 g/dl (13.5-17.5); LYMPH # 1.4 10^3/uL (1.5-5.0); LYMPH % 4.6 % (24.0-44.0); MEAN CORPUSCULAR HEMOGLOBIN 29.3 pg (27.0-33.0); MEAN CORPUSCULAR HGB CONC 32.1 g/dl (32.0-36.5); MEAN CORPUSCULAR VOLUME 91.4 fl (80.0-96.0); MONO # 1.4 10^3/uL (0.0-0.8); MONO % 4.7 % (0.0-5.0); NEUTROPHILS % 86.5 % (36.0-66.0); PLATELET COUNT, AUTOMATED 222 10^3/uL (150-450); RED BLOOD COUNT 3.24 10^6/uL (4.30-6.10)
[2019-07-31 07:22] LABS: NEUTROPHILS # 26.2 10^3/uL (1.5-8.5)
[2019-07-31 07:23] LABS: WHITE BLOOD COUNT 30.3 10^3/uL (4.0-10.0)
[2019-07-31 07:28] LABS: BILIRUBIN,TOTAL 0.8 MG/DL (0.2-1.0); C REACTIVE PROTEIN QUANTITATIV 11.8 MG/DL (0.00-0.30); CALCIUM LEVEL 8.6 MG/DL (8.8-10.2); CREATININE FOR GFR 1.6 MG/DL (0.70-1.30); GLOMERULAR FILTRATION RATE 45.3 (>42); POTASSIUM SERUM 4.8 MEQ/L (3.5-5.1); TOTAL PROTEIN 5.6 GM/DL (6.4-8.2)
[2019-07-31] MEDS: allopurinoL 300 MG TAB PO SCH (08:25)
[2019-07-31] MEDS: PANTOPRAZOLE 40MG TAB (PROTONIX) PO SCH (08:25)
[2019-07-31] MEDS: VITAMIN D 1,000 INTERNATIONAL UNITS TABLET PO SCH (08:25)
[2019-07-31] MEDS: busPIRone 5 MG TAB PO SCH ×2 (08:25→20:47)
[2019-07-31] MEDS: propylthiouraciL 50 MG TAB PO SCH ×2 (08:25→20:49)
[2019-07-31] MEDS: FOLIC ACID 1 MG TAB PO SCH (08:25)
[2019-07-31] MEDS: ASPIRIN 81 MG CHEW TABLET PO SCH (08:25)
[2019-07-31] MEDS: predniSONE 5 MG TAB PO SCH (08:25)
[2019-07-31] MEDS: MAGNESIUM OXIDE 400 MG TAB (MAG-OX) PO SCH ×2 (08:26→20:49)
[2019-07-31] MEDS: FERROUS SULFATE 325MG TAB PO SCH ×2 (08:26→20:47)
[2019-07-31] MEDS: HumaLOG INSULIN (NovoLOG) PER UNIT SC SCH ×4 (08:27→20:23)
[2019-07-31] MEDS: FUROSEMIDE 40 MG TAB PO SCH (08:27)
[2019-07-31] MEDS: VANICREAM MOISTURIZING SKIN CREAM 113GM TUBE TOP SCH (08:27)
[2019-07-31] MEDS: METOPROLOL TART 50 MG TAB PO SCH ×2 (08:31→20:47)
[2019-07-31] MEDS: BETAMETHASONE DIP 0.05% OINT 15 GM TOP SCH (09:00)
[2019-07-31] MEDS: TRIAMCINOLONE ACET 0.1% OINTMENT 15 GM TOP SCH ×2 (09:00→21:00)
[2019-07-31] MEDS ORDERED: predniSONE 20 MG TAB PO SCH (09:00)
--- NOTE | 2019-07-31 09:23 | CR ---
DATE OF CONSULTATION: 07/30/2019 I was asked to see the patient for increasing white count and evidence of peripancreatic inflammation without complaints of abdominal pain, fevers, etc. An unknown etiology for the white count. HISTORY OF PRESENT ILLNESS: The patient is a 74-year-old male who has been admitted for over a month. Essentially had a sepsis episode that brought him to the hospital and had a prolonged hospitalization in the intensive care unit (ICU) with renal failure, dialysis, etc. and eventually has improved/resolved some significant issues but over the last week he has developed an increasing white count. He has had a fluctuating white count that has always been above normal except when he had severe sepsis and has been on steroids for a prolonged period of time, and over the last 3 days has had white counts in the low 20s and now jumped up to 28.9 today and I was asked to see him for thoughts about possible intra-abdominal source. He had a CT scan on 07/27/2019 for further evaluation which revealed a significant amount of peripancreatic fluid consistent with some possible pancreatitis. However, the patient does not complain of any abdominal pain and his laboratory exams revealed essentially mildly elevated alkaline phosphatase but otherwise a normal lipase on 07/27/[address] scan was obtained. He has no complaints at this time, would like to go home. His ostomy has been working well without complaints. He has been eating adequately well. His past medical history is significant for history of sepsis, hypertension, leukocytosis, acute kidney injury, diabetes mellitus, hypernatremia, chronic obstructive pulmonary disease (COPD), hyperthyroidism, gout, neuropathy, gastroesophageal reflux disease, dyslipidemia, depression, duodenal ulcers, right eye laser surgery, gallbladder removal, partial colectomy and diverting colostomy, internal fixation for a right femur, appendectomy. Physical exam reveals a 74-year-old male who is conversant. No complaints from an abdominal standpoint. Major complaint is would like to go home. His lungs are clear anteriorly. Heart is regular. Abdomen is soft, nondistended. He has some fullness in the epigastric area but it is really without any significant tenderness in this area. No guarding, no rebound. No peritoneal signs are appreciated. His ostomy is putting out normal looking stool and it does not appear to be diarrheal stool. IMPRESSION/PLAN: The patient has had a complex history and extensive issues going on since his hospitalization, including Legionella etc., urinary tract infections, and at this time my concern is that there may be an inflammatory process within the kidney that may be acute. However, I am not convinced that this is truly what has happened. I anticipate when he had his severe sepsis on admission he probably had a hyperperfusion event that caused pancreatitis early on and this is the residual inflammatory process that has contributed to his slow recovery. I am not seeing any pseudocyst formation, however without oral or IV contrast this will be somewhat difficult to evaluate. In general, with his overall healthy appearance it seems very unlikely that he has an infected pancreatic necrosis present or infected pseudocyst that is causing this elevated white count. I anticipate it is probably a medical etiology for this elevated white count and less so an infectious process. However, I do feel that it is reasonable to see what his followup labs are in the morning and to obtain a followup lipase tomorrow, liver function tests (LFTs) and see where that is going. If he truly has any progression of his white count it is very reasonable to proceed with a repeat CT scan, however IV, oral contrast would be better off for evaluation of this area given that it is quite ill-defined fluid content, etc. compared to bowel around it and thus that would be one preference, or to get an even better look at the pancreas would be a magnetic resonance cholangiopancreatography (MRCP) to rule out any obstructive component to the pancreatic duct/or just to look at the pancreas itself. The patient understands my current plan for him. Still would like to go home and he will discuss this with his hospitalist.
--- NOTE | 2019-07-31 09:24 | IPN ---
DATE: 07/31/2019 Unfortunately, the patient's white count went up overnight. He still feels good and would like to go home. His LFTs look good. His lipase came back normal again and still has been eating well. His ostomy has been functioning well and not complaining of any abdominal pain. Thus at this point, unfortunately this to me still seems as though it is very unlikely to be acute pancreatic inflammation or pancreatitis contributing to this current white count. I would expect much more of an ileus associated with an inflammatory process or at least a sepsis appearance if this was an infected presentation. Thus I would recommend he still has a benign abdomen, some fullness in the epigastric area as he had previously; I will order a MRCP for the patient as a followup test. However, this may be an area where dermatology might help with his significant hyperkeratosis and he is presenting with much more redness all across his body today and possibly even a lot technician as another etiology for this. In any case, I will order the MRCP to see where we are with the inflammatory process, make sure we are not seeing any significant pseudocyst developing that may need addressing in 4-6 weeks.
[2019-07-31 09:48] LABS: FREE T4 1.32 NG/DL (0.76-1.46); THYROID STIMULATING HORMONE 2.06 uIU/ML (0.358-3.740)
--- NOTE | 2019-07-31 13:27 | CR ---
DATE OF CONSULTATION: 07/31/2019 CONSULTING PROVIDER: Dr. Modesta Milian REASON FOR CONSULTATION: Worsening rash and leukocytosis. HISTORY OF PRESENT ILLNESS: This is a 74-year-old gentleman who originally presented to the emergency department on 07/04/2019 complaining of shaking arms and malaise. Apparently, he had presented to the emergency department the week before complaining of forearm itching for several days. He has had a history of swelling, rashes, and itching of both arms that initially started on the forearms. At that time, he had a leukocytosis of 18.1 with eosinophilia of 37%. He was diagnosed with cellulitis, and he opted to leave against medical advice. He reported back to the emergency department on 07/04/2019 as described above and was admitted for sepsis secondary to cellulitis. On his admitting history of physical, he had documented erythema on all four extremities and was empirically started on Zosyn. He was also started on Solu-Medrol, as well. Overnight, the first night of hospitalization, he developed altered mental status that was thought to be secondary to a possible left lower lobe pneumonia. He subsequently required intubation and was transferred to the intensive care unit (ICU). Nephrology was consulted for dialysis due to his acute renal failure. The antibiotics were broadened at this time, and his Solu-Medrol was changed to intravenous (IV) hydrocortisone 50 mg every 8 hours. On 07/06/2019, a diffuse erythematous exfoliated rash throughout all extremities with the upper extremities being worse than the lower extremities and a macular blanchable component along the thighs. He was also hypothermic at this time and required a Dc Hugger. On 07/07/2019, blood cultures came back initially negative. The erythematous exfoliated rash seemed to be improving on his arms. His hydrocortisone was discontinued at this time and changed to prednisone 10 mg daily. On 07/09/2019, dialysis was stopped, and the dialysis catheter was removed because there was concern for a line infection. The patient's urine culture from 07/09/2019 showed a yeastlike organism, and fluconazole was added. His Zosyn was discontinued in favor of meropenem at this time, as well. Because the patient had failed several swallow evaluations, a peripherally inserted central catheter (PICC) line was placed on 07/12/2019, and total parenteral nutrition (TPN) was started. He had been nothing by mouth since 07/08/2019, which means that he was not getting his prednisone. On 07/16/2019, infectious disease was consulted secondary to recurrent fever and leukocytosis. Dr. Torrez noted diffuse erythroderma with hands peeling bilaterally with scaling, as well as onycholysis of both thumbs and some ridging. He is also having great toe pain at this time, and there is a question of whether or not there was a gouty flare. She recommended Eucerin cream twice a day and restarting prednisone or 20 mg of Solu-Medrol IV daily. She also recommended discontinuing antibiotics at that time because there was no discernible source of infection. On 07/17/2019, urine Legionella came back positive. Sputum culture was not able to be obtained because the patient did not have any cough or production. The patient was placed on doxycycline 100 mg twice a day for 7 days with an end date of 07/24/2019. On 07/19/2019, the PICC line was removed, and the patient was off TPN. He was tapered from Solu-Medrol to prednisone 10 mg daily on 07/20/2019 and was subsequently able to be tailored down to 5 mg daily, which was his home dose. On 07/26/2019, doxycycline was restarted, presumably due to an increase in the patient's white count. On 07/27/2019, meropenem was added, and there was a question of pancreatitis for which a CT scan was ordered. Dr. Camejo from general surgery was subsequently consulted for leukocytosis and evidence of peripancreatic inflammation with a concern for acute pancreatitis. The patient was asymptomatic at this time. On 07/31/2019, meropenem was changed to cefepime and vancomycin, presumably due to leukocytosis that had increased to 30.3 with 87% neutrophils. The patient's C-reactive protein (CRP) was 11.8, and all cultures have been negative thus far. Thus, dermatology was called for consultation of the patient's worsening rash. The patient is seen at bedside. He denies any history of skin conditions. He is pleasant and cooperative. He denies any itching but states that the scaliness has gotten worse since his hospital stay. He denies any history of skin cancer or rheumatological conditions such as psoriasis or lupus. He denies any new lumps or bumps anywhere, open wounds, oozing, or bleeding. PAST MEDICAL HISTORY: Diabetes mellitus with diabetic neuropathy. Chronic obstructive pulmonary disease (COPD), on chronic prednisone. Hypertension. Hyperthyroidism. Chronic kidney disease (CKD) stage III. Gout. Hyperlipidemia. Gastroesophageal reflux disease (GERD). CURRENT INPATIENT MEDICATIONS: Tylenol 650 mg every 4-6 hours as needed for fever Albuterol sulfate nebulizer every 1 hour as needed DuoNebs every 6 hours, Allopurinol 300 mg by mouth daily Artificial tears two drops four times a day as needed for dry eyes Artificial tear ointment one dose three times a day as needed OD Aspirin 81 mg chewable BuSpar 15 mg by mouth twice a day Cefepime 2 grams every 2 hours IV Vanicream twice a day to the arms, legs, abdomen, and back Ferrous sulfate 325 mg by mouth twice a day Folic acid 1 mg by mouth daily Lasix 40 mg by mouth daily Hypoglycemic protocol Heparin 5000 units subcutaneous every 8 hours Insulin sliding scale with before meals and at bedtime coverage Magnesium oxide 800 mg by mouth twice a day Lopressor 75 mg by mouth twice a day Protonix 40 mg by mouth daily Prednisone 5 mg by mouth daily, PTU which is propylthiouracil 50 mg every morning and 25 mg nightly Rozerem 8 mg by mouth nightly Simvastatin 20 mg by mouth nightly Vancomycin 500 mg every 24 hours IV Vitamin D 5000 units by mouth daily. PAST SURGICAL HISTORY: Bowel resection, status post colostomy on the left side. Hip surgery. Appendectomy. Cholecystectomy. SOCIAL HISTORY: Former smoker, having quit over 50 years ago. He denies alcohol or drug use. He lives at home with his . FAMILY HISTORY: Negative for family history of skin cancer. ALLERGIES: QUINOLONES, ZITHROMAX, TOBRAMYCIN, IBUPROFEN, ZOLPIDEM. REVIEW OF SYSTEMS: Constitutional: Denies weight loss, day sweats, fevers, or chills. Eyes: Positive for poor vision, however, this is not new for him. Denies feeling like a curtain got pulled down over his eyes or double vision. Ear, nose, throat: Denies epistaxis, sinus pain, tinnitus, gingival bleeding, or odynophagia. Cardiovascular: Denies chest pain, shortness of breath, paroxysmal nocturnal dyspnea, orthopnea, edema, or palpitations. Respiratory: Denies cough, sputum production, wheezes, or hemoptysis. Gastrointestinal: Denies abdominal pain, nausea, vomiting, diarrhea, constipation, obstipation, bright red blood per rectum, hematemesis, melena, or tenesmus. Genitourinary: Denies incontinence, dysuria, hematuria, nocturia, polyuria, hesitancy, or dribbling. Musculoskeletal: Denies any new joint swelling, decreased range of motion, or crepitus. Integumentary: Positive for a diffuse scaling rash, which has worsened since at least a week or two during his hospitalization. Denies any new incisions or pruritus or history of eczema. Neurologic: Denies any changes to sight, smell, hearing, taste, seizures, new paresthesias or anesthesias. Psychiatric: Positive for history of depression and anxiety but denies any new episodes of paranoia, anhedonia, or episodes of rodney. Endocrine: Positive for history of hyperthyroidism with increased heart rate. Denies tremor, palpitations, constipation, polydipsia, polyuria, or polyphagia. Hematologic: Positive for somewhat easy bruising since he is on DVT prophylaxis. Lymphatic: Denies any new lumps or bumps anywhere. PHYSICAL EXAMINATION: Vital signs: Temperature 97.4, pulse is 100 and regular, respiratory rate is 20, blood pressure is 140/69, 93% on room air. General: This is an elderly male in no acute distress lying in bed on 5 durbin HEENT: Eyes are clear, but he does squint. Mucous membranes are moist. Neck: Supple, no jugular venous distention (JVD). No masses. Lungs: Clear to auscultation bilaterally. No wheezes, rhonchi, or rales. Heart: Regular rate and rhythm. No murmurs, gallops, or rubs. Abdomen: Ostomy bag is present in the left lower quadrant. Bowel sounds are present throughout. No guarding, tenderness, or rigidity is noted. No masses palpated in the abdomen. Skin: There is diffuse erythroderma with desquamation of the skin covering the head, face, arms, back, chest, legs, and abdomen. He also has red-purple thickening of the skin of his lower extremities. There is also yellowing and thickening of the nail plate with onycholysis, as well as dystrophic nail changes on the finger nails. Extremities: Pulses are 2+ in all four extremities. LABORATORY DATA: Complete blood count (CBC): WBC 30.3, hemoglobin 9.5, hematocrit 29.6, platelets 223, differential shows neutrophils 87%, lymphocytes of 5%, eosinophilia of 2.1%. Chemistry: Sodium 132, potassium 4.8, chloride 96, carbon dioxide 24, anion gap 12, BUN 23, creatinine 1.60, fasting glucose 151, calcium 8.6, total bilirubin 0.8, AST 23, ALT 11, alkaline phosphatase 124, CRP 11.8, total protein 5.6, albumin 2.0, lipase 272, TSH 2.060, free T4 1.32. Serology was negative for Clostridium difficile, influenza A, influenza B. He did have a positive urine Legionella on 07/09/2019 that was treated with doxycycline 100 mg twice a day. MICROBIOLOGY: Shows cultures for blood, nasopharynx, stool, and urine to have been negative except for a urine culture on 07/09/2019 which showed a yeastlike organism. ASSESSMENT: This is a 74-year-old male with an extended hospitalization who has been on multiple antibiotics with worsening leukocytosis and rash. Most likely, this is erythroderma. PLAN: 1. Erythroderma. It can be caused by multiple things. It may be from a drug reaction. The patient is on allopurinol, has been on beta-lactam antibiotics, has a history of being on omeprazole and was recently started on vancomycin. He is on his home simvastatin which can react with allopurinol to cause erythroderma, as well. Another cause of erythroderma is psoriasis, which may be less likely because normally the face is spared. The worsening, however, secondary to withdrawal of steroids, may make it a little bit more likely. Another cause to consider would be atopic dermatitis, which may be a little less likely in the absence of severe pruritus. However, when he presented initially to the emergency department on 06/25/2019, he did have eosinophilia of 37% which is quite significant. Given his age and mild keratoderma, idiopathic erythroderma cannot be excluded. Cutaneous T-cell lymphoma is also on the differential, especially with the deep purple-red hue of his lower extremities. Our plan would be to biopsy part of his rash this afternoon. He should also continue with emollient, such as Vaseline or Aquaphor, three to four times daily and a mid- potency steroid twice a day. Recommend discontinuing antibiotics that are not needed, and to consider weaning down the allopurinol and Protonix if possible. Will also recommend having Ensure with every meal as his protein is low. To decrease inflammation, will also increase his prednisone to 60 mg daily with plans for a long steroid taper and dermatology follow up. I saw the patient with the resident and discussed the plan. I reviewed the resident's documentation and agree with the residents findings and plan x with the following exception(s): with the following clarification(s): Please also supplement with bisphosphonates for long-term corticosteroid use and proton pump inhibitor. f/u pathology report as appropriate. LALO
[2019-07-31] MEDS ORDERED: VANCOMYCIN HCL 750 MG, VIAL MATE ADAPTER 1 EACH in D5W 250 ML IV SCH (14:00)
[2019-07-31] MEDS: DIMETHICONE 2% OINTMENT(VANIPLY) 70GM TUBE TOP SCH ×2 (14:01→18:08)
[2019-07-31] MEDS ORDERED: ONDANSETRON 4MG/2ML VIAL (J2405) IV PRN (14:30)
[2019-07-31] MEDS ORDERED: VANCOMYCIN HCL 500 MG in D5W MINI-BAG PLUS 100 ML IV SCH (15:00)
--- NOTE | 2019-07-31 16:48 | REP ---
Clinical: Pancreatitis. Technique: Attempted noncontrast MRI of the abdomen. Findings: Examination is nondiagnostic due to motion artifact on the obtained images which are incomplete. There is evidence for normal pancreas with normal pancreatic duct and extensive surrounding heterogeneous complex fluid and inflammatory stranding primarily noted in the lesser sac and consistent with acute pancreatitis. No discrete, discernible pseudocyst is definitively identified. Incidental simple 3.3 cm left renal cyst identified. Impression: Essentially nondiagnostic examination demonstrating moderate to significant peripancreatic inflammatory changes related to pancreatitis. Electronically Signed by Samuel Hurley MD 07/31/2019 04:40 P
--- NOTE | 2019-07-31 18:01 | IPNPDOC ---
Date Seen The patient was seen on 07/31/19. Progress Note HISTORY OF PRESENT ILLNESS: 74-year-old male with past medical history of diabetes mellitus, hypertension, COPD, hyperthyroidism, chronic kidney disease presents to the emergency room with shaking of his arms and malaise. Patient was admitted 1 month ago for right hip fracture status post mechanical fall, presented to emergency room 1 week ago with cellulitis, was advised to be admitted by emergency room staff but patient refused to be admitted and went home. Patient has a history of signing out AMA. Patient currently reports he has had poor oral intake for the past few days, chills and fever, urinary incontinence. He denies any chest pain, nausea, vomiting, abdominal pain or diarrhea. 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 07/31/19 In the interim, patient has developed worsening leukocytosis with imaging concerning for pancreatitis, although patient has benign abdomen and lipase is within normal limits. Patient underwent surgical evaluation, scheduled to have MRCP for further evaluation. Patient without any medical complaints today, agitated about his hospitalization, wishes to go home, refusing rehabilitation, refusing to work with physical therapy. He denies any shortness of breath, chest pain, nausea, vomiting, abdominal pain or diarrhea at this time. 10 point review of system is negative except for above. PHYSICAL EXAMINATION: VITAL SIGNS: Please see below. GENERAL: No distress HEENT: moist mucous membranes NECK: Supple CARDIOVASCULAR EXAMINATION: S1, S2 RESPIRATORY EXAMINATION: Clear to auscultation ABDOMINAL EXAMINATION: Soft, nondistended, positive bowel sounds, ostomy with good output EXTREMITIES: Range of motion intact SKIN: Scattered erythema NEUROLOGICAL EXAMINATION: Calm and cooperative LABORATORY DATA: See below. MICROBIOLOGY: Please see below. ASSESSMENT: 74-year-old male with past medical history of type please mellitus, hypertension, COPD, hypothyroidism and chronic kidney disease was admitted for septic shock and acute renal failure, now with worsening leukocytosis and physical deconditioning. PLAN: 1. Acute on chronic kidney disease Initially requiring CRRT in the ICU, renal function has been improving gradually, now stabilized, likely at baseline, nephrology signed off. 2. Leukocytosis Unknown etiology, no obvious signs of infection, on empiric broad-spectrum antibiotics, possibly related to pancreatic inflammation, MRCP pending, will continue empiric antibiotics for today. 3. Septic shock Resolved, initially required vasopressors in the ICU, status post broad- spectrum IV antibiotics, now stable. Completed seven days of Doxycycline for Legionnaires's, ID broderick appreciated. 4. Respiratory failure. Resolved, was intubated and placed on mechanical ventilation in the ICU, now on room air without complaints. 5. Diabetes mellitus. Hold metformin, sliding still insulin every 6 hours, episode of hypoglycemia due to poor oral intake from dietary restrictions, Levemir discontinued. 6. Hyperthyroidism. Continue propylthiouracil 7. Gout. Continue allopurinol DVT prophylaxis: Heparin subcutaneous GI prophylaxis: PPI VS, I&O, 24H, Fishbone Vital Signs/I&O Vital Signs Date Time Temp Pulse Resp B/P (MAP) Pulse Ox O2 Delivery O2 Flow Rate FiO2 07/31/19 09:51 103 07/31/19 09:51 20 07/31/19 09:10 1.0 07/31/19 08:31 140/69 07/31/19 06:00 97.4 93 Room Air I&O- Last 24 Hours up to 6 AM 07/31/19 06:00 Intake Total 2600 ml Output Total 1460 ml Balance 1140 ml Laboratory Data 24H LABS Laboratory Tests 2 07/30/19 20:04: Bedside Glucose (Misc Panel) 285H 07/31/19 06:25: Immature Granulocyte % (Auto) 1.8, Neutrophils (%) (Auto) 86.5H, Lymphocytes (%) (Auto) 4.6L, Monocytes (%) (Auto) 4.7, Eosinophils (%) (Auto) 2.1, Basophils (%) (Auto) 0.3, Neutrophils # (Auto) 26.2H, Lymphocytes # (Auto) 1.4L, Monocytes # (Auto) 1.4H, Eosinophils # (Auto) 0.6H, Basophils # (Auto) 0.1, Nucleated Red Blood Cells % (auto) 0.0, Anion Gap 12, Glomerular Filtration Rate 45.3, Calcium Level 8.6L, Total Bilirubin 0.8, Aspartate Amino Transf (AST/SGOT) 23, Alanine Aminotransferase (ALT/SGPT) 11L, Alkaline Phosphatase 124H, C-Reactive Protein, Quantitative 11.80H, Total Protein 5.6L, Albumin 2.0L, Albumin/Globulin Ratio 0.56L, Lipase 272, Thyroid Stimulating Hormone (TSH) 2.060, Free Thyroxine 1.32 07/31/19 11:40: Bedside Glucose (Misc Panel) 96 07/31/19 17:38: Bedside Glucose (Misc Panel) 185H CBC/BMP Laboratory Tests 07/31/19 06:25 Microbiology Microbiology 07/26/19 Urine Culture - Final, Complete 07/26/19 Blood Culture - Final, Complete NO GROWTH AFTER 5 DAYS SHARLA LUI MD Jul 31, 2019 18:01
[2019-07-31 19:20] VITALS: BP 105/54
--- NOTE | 2019-07-31 19:37 | IPNPDOC ---
Text Note Date of Service The patient was seen on 07/31/19. NOTE 725PM Asked to evaluate the patient bc he was confuse and his O2 sats were in the 60s on 1L. At the time of my evaluation the patient was more alert, knew he was in the hospital and was able to name the month. He shook his head no when asked if he has pain His O2 sats improved 98% on non-rebreather mask 15L. PE LUNGS: unable to speak full sentences / using accessory muscles / coarse expiratory rhochi PSYCH: able to understand and follow command / able to make thumbs up sign # Acute Hypoxemic Respiratory Failure Cause TBD Plan: move to PCU / f/u chest xray and ABG VS,Fishbone, I+O VS, Fishbone, I+O Laboratory Tests 07/31/19 06:25 Vital Signs Date Time Temp Pulse Resp B/P (MAP) Pulse Ox O2 Delivery O2 Flow Rate FiO2 07/31/19 09:51 103 07/31/19 09:51 20 07/31/19 09:10 1.0 07/31/19 08:31 140/69 07/31/19 06:00 97.4 93 Room Air I&O- Last 24 Hours up to 6 AM 07/31/19 06:00 Intake Total 2600 ml Output Total 1460 ml Balance 1140 ml BELLA GIFFORD MD Jul 31, 2019 19:37
[2019-07-31 20:00] VITALS: BP 141/63
--- NOTE | 2019-07-31 20:00 | REP ---
Clinical: Dyspnea. Comparison: 07/15/2019. Findings: Mediastinum and cardiac silhouette are within normal limits and stable. Lung valdez demonstrate COPD and chronic interstitial changes with mild left basilar atelectasis. No effusion. No pneumothorax. Skeletal structures intact. Impression: Chronic changes with mild superimposed left basilar atelectasis Electronically Signed by Samuel Hurley MD 07/31/2019 07:51 P
[2019-07-31 20:20] LABS: ERYTHROCYTE SEDIMENTATION RATE 63 mm/hr (0-20)
[2019-07-31 20:31] LABS: ABG PARTIAL PRESSURE O2 173.9 mmHg (75.0-100.0)
[2019-07-31 20:33] LABS: ABG BASE EXCESS -1.2 (-2.0-2.0); ABG STANDARD HCO3 23.5 MEQ/L (22.0-26.0); ABG TOTAL CO2 28.9 MEQ/L (23.0-31.0)
[2019-07-31 20:36] LABS: ABG PARTIAL PRESSURE CO2 63.8 mmHg (35.0-45.0); ABG pH (ARTERIAL) 7.244 UNITS (7.350-7.450)
[2019-07-31] MEDS: SIMVASTATIN 20 MG TAB PO SCH (20:50)
[2019-07-31] MEDS: RAMELTEON 8 MG TAB (ROZEREM) PO SCH (20:50)
[2019-07-31 21:00] VITALS: O2SAT 100
[2019-07-31] MEDS ORDERED: methylPREDNISolone INJ 125 MG/2 ML VIAL (J2930) IV ONE (21:00)
[2019-07-31] MEDS ORDERED: PANTOPRAZOLE 40MG TAB (PROTONIX) PO ONE (21:00)
[2019-07-31] MEDS ORDERED: PANTOPRAZOLE 40MG INJ (PROTONIX) (C9113) IV ONE (21:15)
[2019-07-31 22:00] VITALS: O2SAT 100
[2019-07-31 23:00] VITALS: O2SAT 85
[2019-08-01] VITALS (88 sets, daily range): BP systolic 72–143; BP diastolic 38–91; O2SAT 89–98
[2019-08-01] MEDS: IPRATROPIUM 0.5MG/ALBUTEROL 2.5MG INH SOL UD 3ML (DUONEB)(J7620) NEB SCH ×4 (01:11→20:00)
[2019-08-01] MEDS: BETAMETHASONE DIP 0.05% OINT 15 GM TOP SCH ×3 (01:33→21:50)
[2019-08-01] MEDS ORDERED: NS 500 ML IV ONE ×2 (04:00→05:00)
[2019-08-01 04:11] LABS: ABG BASE EXCESS -8.7 (-2.0-2.0); ABG HCO3 15.7 MEQ/L (22.0-26.0); ABG O2 SATURATION 96.7 % (95.0-99.0); ABG PARTIAL PRESSURE CO2 28.9 mmHg (35.0-45.0); ABG PARTIAL PRESSURE O2 93.8 mmHg (75.0-100.0); ABG STANDARD HCO3 17.4 MEQ/L (22.0-26.0); ABG TOTAL CO2 16.6 MEQ/L (23.0-31.0); ABG pH (ARTERIAL) 7.354 UNITS (7.350-7.450)
[2019-08-01 04:28] LABS: HEMATOCRIT 28.5 % (42.0-52.0); HEMOGLOBIN 8.8 g/dl (13.5-17.5); MEAN CORPUSCULAR HEMOGLOBIN 29.8 pg (27.0-33.0); MEAN CORPUSCULAR HGB CONC 30.9 g/dl (32.0-36.5); MEAN CORPUSCULAR VOLUME 96.6 fl (80.0-96.0); PLATELET COUNT, AUTOMATED 209 10^3/uL (150-450); RED BLOOD COUNT 2.95 10^6/uL (4.30-6.10)
[2019-08-01 04:46] LABS: WHITE BLOOD COUNT 44.4 10^3/uL (4.0-10.0)
[2019-08-01 05:07] LABS: CALCIUM LEVEL 8.4 MG/DL (8.8-10.2); CREATININE FOR GFR 2.88 MG/DL (0.70-1.30); PHOSPHORUS LEVEL 8.2 MG/DL (2.5-4.9); POTASSIUM SERUM 5.6 MEQ/L (3.5-5.1)
[2019-08-01] MEDS ORDERED: NOREPINEPHRINE 4 MG/4 ML AMP As Ordered ONE (05:10)
[2019-08-01] MEDS ORDERED: NOREPINEPHRINE BITARTRATE 8 MG in D5W 500 ML IV SCH (05:30)
[2019-08-01] MEDS ORDERED: NOREPINEPHRINE BITARTRATE 4 MG in D5W 492 ML IV SCH (05:30)
[2019-08-01] MEDS: HEPARIN SOD (PORCINE) 5000 UNITS/ML VIAL SQ SCH ×2 (06:10→13:50)
[2019-08-01] MEDS: DIMETHICONE 2% OINTMENT(VANIPLY) 70GM TUBE TOP SCH ×4 (06:10→18:03)
[2019-08-01] MEDS ORDERED: SODIUM CHLORIDE 0.9% 1000ML IV SCH ×2 (07:00)
--- NOTE | 2019-08-01 07:58 | REPVR ---
PROCEDURE INFORMATION: Exam: CT Abdomen And Pelvis Without Contrast Exam date and time: 08/01/2019 5:13 AM Age: 74 years old Clinical indication: Abdominal pain; Generalized; Additional info: Emesis R/O sbo TECHNIQUE: Imaging protocol: Computed tomography of the abdomen and pelvis without contrast. Radiation optimization: All CT scans at this facility use at least one of these dose optimization techniques: automated exposure control; mA and/or kV adjustment per patient size (includes targeted exams where dose is matched to clinical indication); or iterative reconstruction. COMPARISON: CT ABD PELVIS W/O CONTRAST 07/27/2019 9:32 AM FINDINGS: Limitations: There is artifact related to the positioning of the patients arms. Lungs: There is increased consolidation in both lung bases compared to the prior exam, with a patchy configuration most consistent with pneumonia, especially in the left lower lobe. Assessment of the lung bases is limited by motion artifact. There is a suggestion of emphysema. Liver: Assessment of the liver is limited by artifact and lack of IV contrast. The liver appears grossly unremarkable. Gallbladder and bile ducts: There has been a cholecystectomy. There is no gross biliary ductal dilation but the common bile duct is not well delineated. Pancreas: The pancreas is poorly defined with prominent heterogeneous density tissue surrounding the pancreas, grossly similar to the prior exam and most likely related to pancreatitis. There is some hyperdensity of the tissue anterior to the head of the pancreas, but this is poorly assessed due to the lack of IV contrast and the beam hardening artifact through this region. Spleen: The spleen demonstrates punctate calcifications, consistent with remote granulomatous organism exposure. The spleen is relatively small. Adrenals: The adrenal glands are normal. Kidneys and ureters: The unenhanced kidneys appear unremarkable. There are no ureteral stones or hydronephrosis. Stomach and bowel: The stomach is distended and fluid-filled. There are dilated, fluid-filled small bowel loops. Distal small bowel appears nondilated. There is a colostomy in the left mid abdominal wall with a parastomal hernia containing small bowel loops. There is a Zimmerman's pouch in the pelvis. Appendix: The appendix is not identified. Intraperitoneal space: There is no free intraperitoneal air. There is a small amount of free fluid in the pelvis. Vasculature: Atherosclerotic changes are present in the abdominal aorta and the iliac arteries. No aortic aneurysm. Lymph nodes: There is no gross lymphadenopathy. Bladder: The bladder is mostly collapsed. No bladder stones are identified. Reproductive: The prostate gland demonstrates nonspecific parenchymal calcifications. Bones/joints: An intramedullary alana and hip screw are seen in the proximal right femur. There is deformity of the proximal right femur and adjacent heterotopic bone, consistent with a previous fracture. There is loss of height of multiple lumbar and lower thoracic vertebral bodies, grossly unchanged. Fracture deformities are seen at the right superior and inferior pubic rami, unchanged. There are fractured deformities of multiple right sided ribs. Soft tissues: See Stomach and bowel findings. IMPRESSION: 1. Signs of small bowel obstruction with dilated, fluid-filled stomach and small bowel and nondilated distal small bowel. The exact point of transition is difficult to identify, but it may be related to the herniation of small bowel into the parastomal hernia at the site of colostomy in the left mid abdomen. 2. Small amount of free fluid. No evidence of bowel perforation. 3. Abnormal appearance of the pancreas with enlargement, indistinct borders, and tissue surrounding the pancreas, grossly similar to the prior exam, but not well assessed without IV contrast and because of beam hardening artifact across the upper abdomen. 4. Worsening consolidation in the bilateral lung bases, especially the left lower lobe, likely due to worsening pneumonia. Electronically signed by: Merry Vicente On 08/01/2019 07:58:32 AM
--- NOTE | 2019-08-01 08:30 | REP ---
Clinical: Central line placement. Comparison: 07/31/2019. Findings: Left IJ line with tip in the brachiocephalic vein. Mediastinum and cardiac silhouette are stable. Lung valdez demonstrate chronic changes with left lower lobe consolidation and possible small pleural effusion. No pneumothorax. Impression: 1. Left IJ line. 2. Left lower lobe consolidation and small pleural effusion. Electronically Signed by Samuel Hurley MD 08/01/2019 08:21 A
[2019-08-01] MEDS: HumaLOG INSULIN (NovoLOG) PER UNIT SC SCH ×3 (08:31→18:24)
[2019-08-01] MEDS: propylthiouraciL 50 MG TAB PO SCH ×3 (08:32→21:00)
[2019-08-01] MEDS: FOLIC ACID 1 MG TAB PO SCH ×2 (08:32→09:00)
[2019-08-01] MEDS: VITAMIN D 1,000 INTERNATIONAL UNITS TABLET PO SCH ×2 (08:32→09:00)
[2019-08-01] MEDS: MAGNESIUM OXIDE 400 MG TAB (MAG-OX) PO SCH ×2 (08:33→09:00)
[2019-08-01] MEDS: FERROUS SULFATE 325MG TAB PO SCH ×2 (08:33→09:00)
[2019-08-01] MEDS: ASPIRIN 81 MG CHEW TABLET PO SCH ×2 (08:33→09:00)
[2019-08-01] MEDS: HYDROCORTISONE 100 MG/2 ML VIAL (J1720 PER 1) IV SCH ×3 (08:33→19:58)
[2019-08-01] MEDS: MEROPENEM INJ 1 GM in IV 1 EA IV SCH ×2 (08:34→19:57)
[2019-08-01] MEDS: busPIRone 5 MG TAB PO SCH (08:34)
[2019-08-01] MEDS: TRIAMCINOLONE ACET 0.1% OINTMENT 15 GM TOP SCH ×2 (08:35→21:51)
[2019-08-01] MEDS ORDERED: PANTOPRAZOLE 40MG INJ (PROTONIX) (C9113) IV SCH (09:00)
--- NOTE | 2019-08-01 09:21 | CCN ---
DATE: 08/01/2019 Critical care time was 1 hour and 14 minutes; this excludes all procedures. I was called by nursing staff for concern for the patient's hypotension and receiving peripheral vasopressors and severe acidosis. I intervened at around 7 a.m. as the patient had been hypotensive for the majority of the night now has a lactic acidosis of 11, has peripheral Levophed. I have placed a bedside left triple lumen. Apparently this patient has been here for quite some time, was actually admitted to the hospital on 07/04/2019. On his initial admission he was intubated, had a profound metabolic acidosis, renal failure, advanced lung disease and actually hypertension. He is now hypotensive. He is in acute renal failure. He was given 1 liter of normal saline overnight according to the nurse. When I reviewed the orders it appeared he was ordered for 500 mL and then started on vasopressor therapy. I have ordered another liter of normal saline because of the hypotension. When I arrived and reviewed his medications, he was not on antibiotics but it did appear that he was on antibiotics the day before yesterday. Antibiotics were stopped only 07/31/2019. The patient remains agitated, but is awake, conversant, responds to painful stimuli. He is asking for Baraham. Is slightly agitated, however this is appears to be his chronic state while he has been in the hospital and over the past month. He is unable to provide me any further information. PHYSICAL EXAMINATION: Vitals: Temperature is 96.6, pulse is 104 in sinus tachycardia, respiratory rate is 30, blood pressure is 80/42 with a mean arterial pressure (MAP) of 55, oxygen saturations 96% on 3 liters. General: Agitated, conversant, yelling at times but responding to questions at other times. HEENT: Sclerae clear and anicteric. Pupils equal and react to light. Mucous membranes are moist without lesions. Neck is fairly normal. Internal jugulars (IJ) are distended bilaterally. Central venous pressure well over 10 mmHg based on estimation by bedside ultrasound. No thyromegaly. Lymphs: No cervical, supraclavicular or axillary adenopathy. Cardiac: Tachycardiac, S1, S2, without audible murmur, rub or gallop. Pulmonary: Clear to auscultation without rales, rhonchi or wheezes. Tachypneic but no accessory muscle use. Abdomen: Appears soft. He does not have any tenderness of his abdomen. He does have a left lower quadrant ostomy with some peristomal herniation. No evidence of incarceration. Stoma is pink with normal appearing stool. Extremities: No cyanosis or clubbing. Skin: Diffuse exfoliative rash which is being consistent while in the hospital. Musculoskeletal: Significant muscle wasting. LABORATORY EVALUATION: Shows a worsening renal function with a creatinine now of 2.88 from 1.6 yesterday, BUN up to 30, bicarbonate of 19, potassium 5.6, chloride of 139. White blood cell count is 44, hemoglobin is 8.8, hematocrit is 28.5. Glucose is 209. Arterial blood gas shows a pH of 7.35, pCO2 of 29, pO2 of 94. INR is 1.46. On 07/30/2019, he had negative scan for Clostridium (C) difficile. Chest x-ray shows minimal basilar abnormalities. No significant infiltrate. No mass. Tip of the catheter is in the superior vena cava (SVC). No evidence of pneumothorax. There is some air in the abdomen. IMPRESSION: 1. Acute hypotension with severe lactic acidosis likely sepsis. I have added antibiotics to his regimen. I have given him additional IV fluids, placed a central line for IV access, central venous pressure monitoring and administration of vasopressor therapy. I will obtain a central venous oxygen saturation in order to ensure adequate perfusion. I have added amylase and lipase to his a.m. labs. Difficult to find the exact source currently. He did have what appeared to be a fungal urinary tract infection (UTI), and therefore, we will need to monitor for fungal infection. He also had a history of Legionnaires. Differential remains wide as the source of his infection. He has also had abdominal complaints. Therefore, broad-spectrum antibiotics were initiated. 2. Acute renal failure. We will hydrate with IV boluses, repeat labs this afternoon. Given his hyperkalemia possibility of requiring dialysis, however the hyperkalemia may be secondary to the severity of the metabolic acidosis. 3. Deep venous thrombosis (DVT) prophylaxis. The patient is on heparin. 4. Gastrointestinal (GI) prophylaxis is not on the patient. I suspect this is due to his renal dysfunction. However, he is on high dose steroids. Would recommend while on high dose steroids that he would be on at least ranitidine, however I believe there is a shortage of this, so will place the patient on pantoprazole. 5. Chronic steroid use. Not sure of the exact indication for his high dose steroids. At this point in time, I have switched him over to hydrocortisone to prevent adrenal insufficiency. The patient remains at risk for intubation. He remains critically ill, has had a prolonged hospital course with metabolic encephalopathy, renal failure, multiple different forms of infection with history of alcoholism and chronic pancreatitis. I will continue to monitor him in the intensive care unit until I feel that the patient can go back to attend being managed by the hospital service alone. Critical care time as above is 1 hour and 14 minutes; this excludes all procedures. MTDD
[2019-08-01] MEDS ORDERED: NS 1,000 ML IV SCH (10:00)
[2019-08-01] MEDS ORDERED: VANCOMYCIN HCL 1,000 MG, VIAL MATE ADAPTER 1 EACH in D5W 250 ML IV SCH (11:00)
[2019-08-01 12:06] LABS: INR 1.82; PROTHROMBIN TIME 20.9 SECONDS (11.8-14.0)
[2019-08-01 12:07] LABS: PARTIAL THROMBOPLASTIN TIME 40.8 SECONDS (25.0-38.4)
[2019-08-01 12:08] LABS: HEMATOCRIT 25.4 % (42.0-52.0); HEMOGLOBIN 7.7 g/dl (13.5-17.5); MEAN CORPUSCULAR HEMOGLOBIN 29.5 pg (27.0-33.0); MEAN CORPUSCULAR HGB CONC 30.3 g/dl (32.0-36.5); MEAN CORPUSCULAR VOLUME 97.3 fl (80.0-96.0); PLATELET COUNT, AUTOMATED 167 10^3/uL (150-450); RED BLOOD COUNT 2.61 10^6/uL (4.30-6.10)
[2019-08-01 12:13] LABS: ALBUMIN 1.5 GM/DL (3.2-5.2); BILIRUBIN,TOTAL 0.7 MG/DL (0.2-1.0); CALCIUM LEVEL 7.7 MG/DL (8.8-10.2); CREATININE FOR GFR 2.73 MG/DL (0.70-1.30); GLOMERULAR FILTRATION RATE 24.5 (>42); POTASSIUM SERUM 5.3 MEQ/L (3.5-5.1); TOTAL PROTEIN 4.6 GM/DL (6.4-8.2); WHITE BLOOD COUNT 31.5 10^3/uL (4.0-10.0)
[2019-08-01] MEDS: NOREPINEPHRINE BITARTRATE 16 MG in D5W 484 ML IV SCH ×2 (12:24→14:45)
[2019-08-01] MEDS ORDERED: HALOPERIDOL 5 MG/ML VIAL (J1630) As Ordered ONE (12:25)
[2019-08-01] MEDS ORDERED: LORazepam 2 MG/ML VIAL (J2060) As Ordered ONE (12:26)
[2019-08-01] MEDS ORDERED: HEPARIN 1,000 UNITS/ML 10ML VIAL (FOR RADIOLOGY& DIALYSIS ONLY) XX ONE (13:00)
[2019-08-01] MEDS ORDERED: SIMETHICONE 80 MG CHEW TAB PO SCH (13:00)
[2019-08-01] MEDS ORDERED: LORazepam 2 MG/ML VIAL (J2060) IV STA (13:50)
--- NOTE | 2019-08-01 14:06 | PHACANCOPD ---
PHARMACY VANCOMYCIN DOSING Pt Demographics Demographics Patient Age:74 , Weight:80.900 , Gender: male Adjusted Body Weight Date: 07/05/19, Adjusted Body Weight: [76.8] Kg Events Past 24 Hours Events Past 24 Hours: YES: Elevation in WBC; NO: Dialysis, Diuretic Therapy, Change in CrCl, Fever, Pending Diagnostics, Pending Procedures, Other Vancomycin Vancomycin indication: severe sepsis Vancomycin Target Ranges: 15-20 mcg/ml Vancomycin Load Y/N: Yes Load Dose Date Time Vancomycin Load Dose: 2 GM Date: 07/30/19 Time: 1400 Vancomycin Dose Date: 08/01/19. Current Vancomycin Dose: [1000mg iv q24h@11] Date. 07/30/19. [1250 MG IV Q24H] Intermittent Dosing?: Yes Labs Labs Item Value Date Time White Blood Count 30.3 10^3/uL *H 07/31/19 0625 White Blood Count 44.4 10^3/uL *H 08/01/19 0421 White Blood Count 31.5 10^3/uL *H 08/01/19 1136 Erythrocyte Sedimentation Rate 63 mm/hr H 07/31/19 0625 Lactic Acid Level 11.9 MMOL/L *H 08/01/19 0421 Lactic Acid Followup at 4 Hours 6.4 MMOL/L *H 08/01/19 0851 Creatinine 2.88 MG/DL H # 08/01/19 0421 Creatinine 2.73 MG/DL H 08/01/19 1136 Vital Signs Label Value Date Time Patient Temperature 98.3 degrees F 08/01/19 1357 Temperature Source Temporal 08/01/19 1357 Patient Temperature 96.6 degrees F 08/01/19 0440 Temperature Source Temporal 08/01/19 0440 Micro Microbiology 08/01/19 Blood Culture, Received Pending 08/01/19 Blood Culture, Received Pending 08/01/19 Blood Culture, Received Pending 07/26/19 Urine Culture - Final, Complete 07/26/19 Blood Culture - Final, Complete NO GROWTH AFTER 5 DAYS Creatinine Clearance Date:07/10/19. Creatinine Clearance: [35ml/min]. Date:07/07/19. Creatinine Clearance: [~46]. Assessment and Plan Maintaining Current Dose?: No Reason for dose change: Change in serum Cr, Other Pharmacist Note Pharmacist Note 08/01: Patient's Vancomycin was discontinued last night then restarted this morning after his condition began to decline. He is now is requiring norepinephrine drip. His WBC is 44.4 this morning, which is up from 30.3 yesterday. A random was obtained this morning due to his SCR increasing from 1.6 to 2.88, which resulted at 15.7. His Vancomycin was restarted at 1gm IV q24h starting at 11am. A trough will be drawn tomorrow to ensure patient remains in therapeutic range. We will continue to monitor and make adjustments as necessary. Date: 07/30/19. Pharmacist note: Pharmacy consulted for Vancomycin dosing, aiming for a trough of 15-20 mcg/ml. Treated earlier this month with vancomycin however patient was on CRRT at that time. SCr has improved since, we'll load with 2 GM then follow with 1250 mg IV q24h. Pharmacy will continue to monitor and make adjustments as needed. Date: 07/11/19. Pharmacist note: Pt vancomycin level came back this AM at 15mcg/ml. The patient will receive 500mg IV once today at 08:00. Another level is scheduled for tomorrow am. We will continue to monitor and adjust the dose as needed. Date: 07/10/19. Pharmacist note:The AM vancomycin level returned at 21mcg/ml. SCR is increased to 1.69mg/dl today. Dosing will be held today. A vancomycin level is scheduled for 12 AM we will continue to monitor and adjust the dose as needed. 07/09: Patient had a trough drawn this morning that resulted in 24.9, 9 hours after last dose. His SCR is 0.85 today, down from 2.45 upon admission. Patient had a second random drawn at 1234 which resulted at 23.6. Given the patient did not clear much of the antibiotic in 6 hours, and his CRRT has been discontinued he will not receive a dose of Vancomycin today. A random was scheduled for tomorrow morning. A lasix drip has also been started today. We will continue to monitor and make adjustments as necessary. Date: 07/05/19. Pharmacist note: Trough of 20.6 is acceptable. Will continue current dosing. Will continue to monitor and make adjustments as needed. [facility] Aug 01, 2019 14:06
[2019-08-01 14:29] LABS: ABG BASE EXCESS -6.4 (-2.0-2.0); ABG HCO3 20.7 MEQ/L (22.0-26.0); ABG O2 SATURATION 57.6 % (95.0-99.0); ABG PARTIAL PRESSURE CO2 49.3 mmHg (35.0-45.0); ABG STANDARD HCO3 18.6 MEQ/L (22.0-26.0); ABG TOTAL CO2 22.2 MEQ/L (23.0-31.0)
[2019-08-01 14:34] LABS: ABG PARTIAL PRESSURE O2 38.8 mmHg (75.0-100.0)
[2019-08-01] MEDS ORDERED: ETOMIDATE INJ 20MG/10ML VIAL As Ordered ONE (14:52)
[2019-08-01] MEDS ORDERED: ROCURONIUM BROMIDE 50 MG/5 ML VIAL As Ordered ONE (14:52)
[2019-08-01] MEDS ORDERED: ETOMIDATE INJ 20MG/10ML VIAL IV STA (15:11)
[2019-08-01] MEDS ORDERED: MORPHINE 2 MG/ML 1ML VIAL (J2270) IV PRN (15:15)
[2019-08-01] MEDS ORDERED: ROCURONIUM BROMIDE 50 MG/5 ML VIAL IV SCH (15:15)
--- NOTE | 2019-08-01 15:28 | REP ---
Clinical: Status post intubation. Comparison: 08/01/2019 at 07:53 a.m. Findings: Endotracheal tube 4 cm above the alanna. Left IJ line with tip in the brachiocephalic vein. Nasogastric tube courses just below left hemidiaphragm and may warrant advancement. The mediastinum demonstrates normal cardiac silhouette with suspected hiatal hernia. Lung valdez demonstrate perihilar and lower lobe infiltrates (left greater than right) similar to prior examination. Cannot exclude small left effusion. No pneumothorax. Skeletal structures stable. Impression: 1. Lines and tubes as above. 2. Lower lobe infiltrates and possible small left pleural effusion. Electronically Signed by Samuel Hurley MD 08/01/2019 03:19 P
[2019-08-01] MEDS ORDERED: SODIUM CHLORIDE 0.9% INJ 10 ML SYR IV PRN (15:30)
[2019-08-01] MEDS ORDERED: HEPARIN 1,000 UNITS/ML 10ML VIAL (FOR RADIOLOGY& DIALYSIS ONLY) IV PRN (15:30)
[2019-08-01 16:26] LABS: ABG BASE EXCESS -1.8 (-2.0-2.0); ABG HCO3 25.2 MEQ/L (22.0-26.0); ABG O2 SATURATION 89.9 % (95.0-99.0); ABG PARTIAL PRESSURE CO2 55.9 mmHg (35.0-45.0); ABG PARTIAL PRESSURE O2 68.6 mmHg (75.0-100.0); ABG STANDARD HCO3 22.9 MEQ/L (22.0-26.0); ABG TOTAL CO2 26.9 MEQ/L (23.0-31.0); ABG pH (ARTERIAL) 7.272 UNITS (7.350-7.450)
--- NOTE | 2019-08-01 17:47 | CCN ---
DATE: 08/01/2019 PROCEDURE: Endotracheal intubation. DIAGNOSIS: Hypoxia. POSTPROCEDURE DIAGNOSIS: Hypoxia. ANESTHESIA: 20 etomodate, 50 rocuronium.. DESCRIPTION OF PROCEDURE: The patient was placed in the sniffing position. I had been called urgently to his bedside. After receiving benzodiazepine therapy, he had increased sommolence, Increased oxygen requirements. I therefore initiated rapid-sequence intubation. The patient was preoxygenated. After adequate preparation, rapid-sequence intubation (RSI) was pushed in the form of etomidate followed by rocuronium. I then viewed the posterior pharynx with a four blade via the GlideScope with a grade 1 view. There were large amounts of black fluid in the posterior pharynx emptying into the trachea. This was suctioned. Continue to return. Suction was placed permanently during intubation. An 8.0 endotracheal tube was then placed through the vocal cords, secured at the lip at 22. End-tidal CO2 monitoring showed change. Auscultation confirmed placement along with chest x-ray. There were no observed complications. At the same time I put an orogastric (OG) tube due to the amount of gastric contents returning. I believe he most likely has a gastrointestinal (GI) bleed.
--- NOTE | 2019-08-01 19:45 | IPNPDOC ---
Date Seen The patient was seen on 08/01/19. Progress Note [place] Catheter procedure note INDICATION: CRRT PROCEDURE EMERGENCY PREPAREDNESS MANAGER: Dr. Lui Verbal consent was obtained from prior to the procedure. Indications, risks, and benefits were explained at length. PROCEDURE SUMMARY: A time out was performed. My hands were washed immediately prior to the procedure. I wore a surgical cap, mask with protective eyewear, sterile gown and sterile gloves throughout the procedure. The right inguinal region was prepped using chlorhexidine scrub and draped in sterile fashion using sterile towels and sterile probe cover employed. The femoral pulse was identified. Anesthesia was achieved using 1% lidocaine. Under direct visualization with ultrasound, the introducer needle was in the femoral vein; venous blood was withdrawn. The syringe was removed and a guidewire was advanced into the introducer needle. A small incision was made at the skin surface with a scalpel and the introducer needle was exchanged for a dilator over the guidewire which was then exchanged for the 2nd dilator over the guidewire. After appropriate dilation was obtained, the dilator was exchanged over the wire for a 20 cm [place] catheter. The wire was removed and the catheter was sutured in place at 20 cm. A sterile sorbaview shield was placed over the catheter at the insertion site. The patient tolerated the procedure without any hemodynamic compromise. At time of procedure completion, all ports aspirated and flushed properly followed by locking of catheter with the appropriate volume of heparin solution (1.1 ml & 1.4 ml). Estimated blood loss is <10 cc. VS, I&O, 24H, [facility] Vital Signs/I&O Vital Signs Date Time Temp Pulse Resp B/P (MAP) Pulse Ox O2 Delivery O2 Flow Rate FiO2 08/01/19 18:38 89.5 75 22 106/59 98 Ventilator 35 08/01/19 14:45 4.0 I&O- Last 24 Hours up to 6 AM 08/01/19 06:00 Intake Total 1300 ml Output Total 250 ml Balance 1050 ml Laboratory Data 24H LABS Laboratory Tests 2 08/01/19 03:54: Bedside Glucose (Misc Panel) 262H 08/01/19 04:07: Blood Gas Bicarbonate Standard 17.4L, Arterial Blood pH 7.354, Arterial Blood Partial Pressure CO2 28.9L, Arterial Blood Partial Pressure O2 93.8, Arterial Blood Total CO2 16.6L, Arterial Blood HCO3 15.7L, Arterial Blood Base Excess - 8.7L, Arterial Blood Oxygen Saturation 96.7 08/01/19 04:21: Nucleated Red Blood Cells % (auto) 0.0, Anion Gap 21H, Glomerular Filtration Rate 23.0L, Lactic Acid Level 11.9*H, Calcium Level 8.4L, Phosphorus Level 8.2H, Magnesium Level 2.0, Amylase Level 123H, Lipase 150 08/01/19 06:20: Troponin I < 0.02 08/01/19 08:51: Central Line Venous O2 Saturation 73.0, Lactic Acid Followup at 4 Hours 6.4*H, Random Vancomycin Level 15.7 08/01/19 11:36: Nucleated Red Blood Cells % (auto) 0.0, Anion Gap 13, Glomerular Filtration Rate 24.5L, Calcium Level 7.7L, Total Bilirubin 0.7, Aspartate Amino Transf (AST/SGOT ) 32, Alanine Aminotransferase (ALT/SGPT) 14, Alkaline Phosphatase 95, Total Protein 4.6L, Albumin 1.5#L, Albumin/Globulin Ratio 0.48L 08/01/19 11:37: Prothrombin Time 20.9H, Prothromb Time International Ratio 1.82, Activated Partial Thromboplast Time 40.8H 08/01/19 14:12: Blood Gas Bicarbonate Standard 18.6L, Arterial Blood pH 7.240*L, Arterial Blood Partial Pressure CO2 49.3H, Arterial Blood Partial Pressure O2 38.8*L, Arterial Blood Total CO2 22.2L, Arterial Blood HCO3 20.7L, Arterial Blood Base Excess - 6.4L, Arterial Blood Oxygen Saturation 57.6L 08/01/19 16:10: Blood Gas Bicarbonate Standard 22.9, Arterial Blood pH 7.272L, Arterial Blood Partial Pressure CO2 55.9H, Arterial Blood Partial Pressure O2 68.6L, Arterial Blood Total CO2 26.9, Arterial Blood HCO3 25.2, Arterial Blood Base Excess -1.8, Arterial Blood Oxygen Saturation 89.9L 08/01/19 18:21: Bedside Glucose (Misc Panel) 242H CBC/BMP Laboratory Tests 08/01/19 04:21 08/01/19 11:36 Microbiology Microbiology 08/01/19 Blood Culture, Received Pending 08/01/19 Blood Culture, Received Pending 08/01/19 Blood Culture, Received Pending 07/26/19 Urine Culture - Final, Complete 07/26/19 Blood Culture - Final, Complete NO GROWTH AFTER 5 DAYS SHARLA LUI MD Aug 01, 2019 19:45
[2019-08-01] MEDS: MIDAZOLAM INJ 2 MG/2 ML VIAL (J2250) IV PRN ×3 (20:00→21:44)
[2019-08-01] MEDS ORDERED: PANTOPRAZOLE 40MG INJ (PROTONIX) (C9113) IV ONE (20:00)
[2019-08-01] MEDS ORDERED: MICAFUNGIN SODIUM 150 MG in D5W 100 ML IV SCH (20:00)
--- NOTE | 2019-08-01 20:16 | IPNPDOC ---
Date Seen The patient was seen on 08/01/19. Progress Note HISTORY OF PRESENT ILLNESS: 74-year-old male with past medical history of diabetes mellitus, hypertension, COPD, hyperthyroidism, chronic kidney disease presents to the emergency room with shaking of his arms and malaise. Patient was admitted 1 month ago for right hip fracture status post mechanical fall, presented to emergency room 1 week ago with cellulitis, was advised to be admitted by emergency room staff but patient refused to be admitted and went home. Patient has a history of signing out AMA. Patient currently reports he has had poor oral intake for the past few days, chills and fever, urinary incontinence. He denies any chest pain, nausea, vomiting, abdominal pain or diarrhea. 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 07/31/19 In the interim, patient has developed worsening leukocytosis with imaging concerning for pancreatitis, although patient has benign abdomen and lipase is within normal limits. Patient underwent surgical evaluation, scheduled to have MRCP for further evaluation. Patient without any medical complaints today, agitated about his hospitalization, wishes to go home, refusing rehabilitation, refusing to work with physical therapy. He denies any shortness of breath, chest pain, nausea, vomiting, abdominal pain or diarrhea at this time. 08/01/19 Patient decompensated overnight, initially developed acute hypercapnic respir atory acidosis for which she was transferred to PCU, subsequently became hypotensive and transferred to the ICU, received IV fluid bolus followed by levophed infusion. Patient was seen in the morning, clearly altered compared to yesterday, asking me to leave him alone, refusing physical examination or answering any questions. Patient was offered NG tube placement last night prior to decompensation due to large volume of fluid noted in his stomach on MRCP and one episode of emesis, he refused. He was once again offered NG tube placement today, which he is refusing. Patient was reevaluated in the afternoon, remains altered, but more amenable to treatment at this time. He has had minimal urine output since this morning, renal function worsening, discussed case with Dr. Rasmussen who agrees the patient will likely need to go back on CRRT and recommends placement of Denver catheter. Verbal consent obtained from patient's , who as of right now wants all treatment available, Denver catheter was then placed in his right femoral vein using ultrasound guidance and sterile technique. Patient was agitated during the procedure, requiring mild sedation with Ativan 2 mg IV (given separately 1 mg at a time, 10 minutes apart). After the procedure, patient remained somnolent and started to become hypoxemic after 30 minutes, repeat ABG showed worsening respiratory acidosis with profound hypoxemia, likely related to aspiration of gastric contents. Patient was emergently intubated by Dr. Guzman. Patient was reevaluated in the evening, now on CRRT, comfortable with mild sedation on mechanical ventilation, awaiting PRBC transfusion, received IV albumin in the interim, off of Levophed at this time. PHYSICAL EXAMINATION: VITAL SIGNS: Please see below. GENERAL: Sedated on mechanical ventilation HEENT: Size 8 ET tube 22 cm at the lip NECK: Supple CARDIOVASCULAR EXAMINATION: S1, S2 RESPIRATORY EXAMINATION: Scattered rhonchi ABDOMINAL EXAMINATION: Soft, nondistended, hypoactive bowel sounds, ostomy with minimal output EXTREMITIES: Diffuse edema SKIN: Scattered erythema NEUROLOGICAL EXAMINATION: Sedated LABORATORY DATA: See below. MICROBIOLOGY: Please see below. ASSESSMENT: 74-year-old male with past medical history of type please mellitus, hypertension, COPD, hypothyroidism and chronic kidney disease was admitted for septic shock, acute respiratory failure and acute renal failure requiring multiple vasopressors CRRT and endotracheal intubation with mechanical ventilation, now returns to the ICU with small bowel obstruction, possible GI bleed, septic shock, acute on chronic renal failure, acute respiratory failure and reintubated. PLAN: 1. Acute hypercapnic and hypoxemic respiratory failure Reintubated, likely due to aspiration of gastric contents and Ativan given for Denver catheter placement. Sedated with intermittent Ativan and morphine. 2. Septic shock Unknown etiology, possible GI source, now with aspiration pneumonia/pneumonitis. On broad-spectrum coverage with vancomycin and Merrem. Patient has been admitted to the hospital for 28 days, was previously intubated on broad-spectrum antibiotics, requiring vasopressors and CRRT, has been on and off of high-dose steroids as well during the past 4 weeks with urine growing yeast previously, will add empiric fungal coverage with micafungin 150 mg daily (dosed for CRRT). Currently on stress dose steroids and IV albumin to augment volume resuscitation, continue Levophed, target MAP >65. 3. Possible GI bleed. Significant drop in hemoglobin with coffee ground gastric fluid aspirated through NG tube, Protonix 80 mg IV push followed by 40 mg twice a day, Carafate 1 g every 6 hours, no GI coverage at this time, transfuse 2 units PRBC, further transfusion as needed to maintain hemoglobin greater than 8. 4. Acute on chronic kidney disease. Renal function has profoundly worsened since yesterday, likely due to septic shock, minimal urine output, nephrology was reconsulted, plan to reinstate CRRT, Denver catheter placed in right femoral vein. 5. Diabetes mellitus. Hold metformin, sliding still insulin every 6 hours. 6. Hyperthyroidism. Continue propylthiouracil 7. Gout. Hold allopurinol for now DVT prophylaxis: Heparin subcutaneous GI prophylaxis: PPI VS, I&O, 24H, Fishbone Vital Signs/I&O Vital Signs Date Time Temp Pulse Resp B/P (MAP) Pulse Ox O2 Delivery O2 Flow Rate FiO2 08/01/19 18:38 89.5 75 22 106/59 98 Ventilator 35 08/01/19 14:45 4.0 I&O- Last 24 Hours up to 6 AM 08/01/19 06:00 Intake Total 1300 ml Output Total 250 ml Balance 1050 ml Laboratory Data 24H LABS Laboratory Tests 2 08/01/19 03:54: Bedside Glucose (Misc Panel) 262H 08/01/19 04:07: Blood Gas Bicarbonate Standard 17.4L, Arterial Blood pH 7.354, Arterial Blood Partial Pressure CO2 28.9L, Arterial Blood Partial Pressure O2 93.8, Arterial Blood Total CO2 16.6L, Arterial Blood HCO3 15.7L, Arterial Blood Base Excess -8.7L, Arterial Blood Oxygen Saturation 96.7 08/01/19 04:21: Nucleated Red Blood Cells % (auto) 0.0, Anion Gap 21H, Glomerular Filtration Rate 23.0L, Lactic Acid Level 11.9*H, Calcium Level 8.4L, Phosphorus Level 8.2H, Magnesium Level 2.0, Amylase Level 123H, Lipase 150 08/01/19 06:20: Troponin I < 0.02 08/01/19 08:51: Central Line Venous O2 Saturation 73.0, Lactic Acid Followup at 4 Hours 6.4*H, Random Vancomycin Level 15.7 08/01/19 11:36: Nucleated Red Blood Cells % (auto) 0.0, Anion Gap 13, Glomerular Filtration Rate 24.5L, Calcium Level 7.7L, Total Bilirubin 0.7, Aspartate Amino Transf (AST/SGOT) 32, Alanine Aminotransferase (ALT/SGPT) 14, Alkaline Phosphatase 95, Total Protein 4.6L, Albumin 1.5#L, Albumin/Globulin Ratio 0.48L 08/01/19 11:37: Prothrombin Time 20.9H, Prothromb Time International Ratio 1.82, Activated Partial Thromboplast Time 40.8H 08/01/19 14:12: Blood Gas Bicarbonate Standard 18.6L, Arterial Blood pH 7.240*L, Arterial Blood Partial Pressure CO2 49.3H, Arterial Blood Partial Pressure O2 38.8*L, Arterial Blood Total CO2 22.2L, Arterial Blood HCO3 20.7L, Arterial Blood Base Excess - 6.4L, Arterial Blood Oxygen Saturation 57.6L 08/01/19 16:10: Blood Gas Bicarbonate Standard 22.9, Arterial Blood pH 7.272L, Arterial Blood Partial Pressure CO2 55.9H, Arterial Blood Partial Pressure O2 68.6L, Arterial Blood Total CO2 26.9, Arterial Blood HCO3 25.2, Arterial Blood Base Excess -1.8, Arterial Blood Oxygen Saturation 89.9L 08/01/19 18:21: Bedside Glucose (Misc Panel) 242H CBC/BMP Laboratory Tests 08/01/19 04:21 08/01/19 11:36 Microbiology Microbiology 08/01/19 Blood Culture, Received Pending 08/01/19 Blood Culture, Received Pending 08/01/19 Blood Culture, Received Pending 07/26/19 Urine Culture - Final, Complete 07/26/19 Blood Culture - Final, Complete NO GROWTH AFTER 5 DAYS SHARLA LUI MD Aug 01, 2019 20:16
--- NOTE | 2019-08-01 20:51 | IPN ---
DATE: 08/01/2019 SUBJECTIVE: Patient was seen and examined at the bedside today morning in the intensive care unit (ICU). I was contacted by the hospitalist, Dr. Byers, today morning and I was informed of the last 24-hour events. Patient went into shock. Patient was in hypercapnic respiratory failure overnight. Labs show that he was in lactic acidosis with a lactate of more than 11. He was given intravenous (IV) normal saline boluses. He is in oliguric renal failure with metabolic acidosis and hyperkalemia at this time. He was transferred to ICU. He is requiring Levophed at 10 mcg at this time. He was also seen by pulmonary team. Case was discussed with myself, by the hospitalist, and a decision was made to place a temporary dialysis catheter and start the patient on continuous venovenous hemodiafiltration. Patient was obtunded and he was unable to provide me any review of systems. He is still not intubated at this time when I saw him. OBJECTIVE: VITAL SIGNS: Temperature is 98.3 degrees Fahrenheit, blood pressure is 92/44, pulse is 93, respiratory rate of 24, saturating 86% on nasal cannula 88 liters. INTAKE AND OUTPUT: There is no urine output recorded since overnight. I saw in the bag there was only 10 mL of urine. Weight in the bed scale is 80.9 kg. PHYSICAL EXAMINATION: GENERAL: Patient is very obtunded, not responding to vocal stimuli. Eyes are closed, having gurgling breath sounds. HEAD AND NECK EXAM: Eyes and closed. Pupils are equally round and reactive to light. Mucous membranes are dry. Neck is supple. There is no jugular venous distention (JVD). He is wearing a nasal cannula. CARDIOVASCULAR: S1, S2. Regular rate. No edema of the bilateral lower extremities. RESPIRATORY: Decreased breath sounds bilaterally at the bases. No active rales or rhonchi noted. ABDOMEN: Distended. Left lower quadrant ostomy was noted. Very decreased bowel sounds, even though patient is obtunded, but looks like abdomen is tender to deep palpation all over. There is a parastomal hernia noted. GENITOURINARY: Patient has indwelling Davila catheter. A very small amount of urine, probably 10 mL, was found in the bag. MUSCULOSKELETAL: No clubbing or cyanosis. No edema of the bilateral lower extremities. CENTRAL NERVOUS SYSTEM (DIRECTOR WORK): Patient is very obtunded and has gurgling breath sounds at this time and oftentimes gasping. LABORATORY REVIEW: Complete blood count (CBC) showed a WBC of 44.4, hemoglobin 8.8, platelets are 209. INR is 1.82. ABG done in the afternoon showed pH of 7.24, pCO2 of 49.3, CO2 38.8, bicarbonate 20.7, oxygen saturation 57.6. Basic metabolic panel (BMP) showed sodium 141, potassium 5.3, chloride 106, bicarbonate 22, BUN 38, creatinine is 2.7, lactic acid initially was 11.9, repeat is 6.4, calcium is 7.7. Total bilirubin 0.7, total protein 4.6, albumin is 1.5. MICROBIOLOGY: Blood cultures are pending. IMAGING STUDIES: A CAT scan of the abdomen/pelvis was done today morning which showed a small bowel obstruction with dilated fluid-filled stomach and nondilated distal small bowel. A tract point of transition is most likely related to herniation of small bowel into the parastomal hernia. Worsening consolidation in the bilateral lung base, especially in the left side, likely due to worsening pneumonia. CURRENT INPATIENT MEDICATIONS: Patient is currently on Levophed at 10 mcg. He has been started on meropenem 1 gram IV every 12 hours. He was given two normal saline boluses of 500. He is also getting normal saline at 150 an hour. Albumin 25% 25 grams IV every 8 hours is also ordered for a total of four doses. He was also started on vancomycin 1 gram IV daily. I have stopped the oral folic acid, iron tablet and Lasix. He was also started on hydrocortisone 50 mg IV every 6 hours. He was given 2 mg of IV Ativan while he was getting the procedure done. Magnesium oral tablet has been stopped. Lopressor oral has been stopped. Oral Protonix has been stopped and IV Protonix has been started 40 mg daily. Oral prednisone has been stopped. He continues to be on propylthiouracil 50 mg in the morning and 25 mg in the evening. Zocor is being stopped now because of shock and risk of liver injury and vitamin D is also being stopped. ASSESSMENT AND PLAN: 1. Acute renal failure. This is the second time during this hospitalization that patient is in acute renal failure. He is oliguric. He is in metabolic acidosis along with hyperkalemia and in shock, so a temporary non-tunneled right femoral dialysis catheter has been inserted by the hospitalist. Patient is going to start continuous venovenous hemodiafiltration (CVVHDF). No fluid removal will be done. 2. Septic shock. Patient is hypotensive requiring pressors. He has severe leukocytosis. He has worsening left-sided pneumonia and small bowel obstruction. Continue the albumin infusions. He is status post normal saline boluses. Empiric coverage with vancomycin and meropenem has already been started. Serial lactate measurement is being done. The rest of the management is as per pulmonary team. 3. Hyperkalemia. Patient is being started on continuous renal replacement therapy (CRRT). Potassium level with improve with dialysis. 4. Mixed metabolic and respiratory acidosis. It is secondary to pneumonia, hypercapnic respiratory failure and acute renal failure, along with lactic acidosis. Acidosis will be managed with dialysis. No need of bicarbonate administration at this time. Lactic acidosis is improving with treatment of shock. I suspect some of the lactate might be coming from gut ischemia. 5. Small-bowel obstruction. Patient has an ostomy in the left lower quadrant with parastomal hernia. He needs to be seen by surgical service. Patient also needs an OGT with intermittent suctioning. 6. Anemia. Hemoglobin level is 7.7. He is going to get packed red blood cells (PRBC) transfusion. 7. Chronic steroid use. Patient was on high dose prednisone. He has been started on stress dose hydrocortisone. He is also on IV Protonix for gastrointestinal (GI) prophylaxis. 8. Hyperthyroidism. Patient continues to be on our propylthiouracil 50 mg in the morning and 25 mg in the evening. 9. Hypercapnic respiratory failure. Patient is getting acidotic. He was very obtunded. I discussed the case with the pulmonary team. Patient is going to be intubated soon. Patient overall has a poor prognosis. This is the second time he has come back to the ICU and being started on CVVHDF. Total critical care time spent in the management of this patient today morning in the ICU was 1 hour. That does not include any procedures. ASHLEYD
[2019-08-01] MEDS: CHLORHEXIDINE GLUCONATE 0.12 % 15ML UDC (PERIDEX ORAL RINSE) MT SCH (21:08)
[2019-08-01] MEDS: SUCRALFATE SUSP 1GM/10ML UD PO SCH (21:44)
[2019-08-01] MEDS ORDERED: REFRIGERATOR IV KEYS XX PRN (22:15)
[2019-08-01] MEDS: MIDAZOLAM HCL 100 MG in D5W 80 ML IV SCH (22:41)
[2019-08-02] VITALS (55 sets, daily range): BP systolic 79–127; BP diastolic 41–64; O2SAT 95
[2019-08-02 00:10] LABS: IONIZED CALCIUM 4.2 MG/DL (4.5-5.3)
[2019-08-02 00:15] LABS: HEMATOCRIT 29.1 % (42.0-52.0); HEMOGLOBIN 9.2 g/dl (13.5-17.5); MEAN CORPUSCULAR HEMOGLOBIN 29.8 pg (27.0-33.0); MEAN CORPUSCULAR HGB CONC 31.6 g/dl (32.0-36.5); MEAN CORPUSCULAR VOLUME 94.2 fl (80.0-96.0); PLATELET COUNT, AUTOMATED 129 10^3/uL (150-450); RED BLOOD COUNT 3.09 10^6/uL (4.30-6.10); WHITE BLOOD COUNT 22.2 10^3/uL (4.0-10.0)
[2019-08-02] MEDS: DIMETHICONE 2% OINTMENT(VANIPLY) 70GM TUBE TOP SCH ×4 (00:40→18:00)
[2019-08-02 00:46] LABS: CALCIUM LEVEL 7.4 MG/DL (8.8-10.2); CREATININE FOR GFR 2.18 MG/DL (0.70-1.30); GLOMERULAR FILTRATION RATE 31.7 (>42); MAGNESIUM LEVEL 1.9 MG/DL (1.8-2.4); PHOSPHORUS LEVEL 4.2 MG/DL (2.5-4.9); POTASSIUM SERUM 4.2 MEQ/L (3.5-5.1)
[2019-08-02] MEDS: MICAFUNGIN SODIUM 150 MG in D5W 100 ML IV SCH ×2 (01:09→20:14)
[2019-08-02] MEDS: HYDROCORTISONE 100 MG/2 ML VIAL (J1720 PER 1) IV SCH ×4 (01:10→20:13)
[2019-08-02] MEDS: HumaLOG INSULIN (NovoLOG) PER UNIT SC SCH ×4 (01:10→17:59)
[2019-08-02] MEDS: SUCRALFATE SUSP 1GM/10ML UD PO SCH ×4 (01:11→17:59)
[2019-08-02] MEDS: IPRATROPIUM 0.5MG/ALBUTEROL 2.5MG INH SOL UD 3ML (DUONEB)(J7620) NEB SCH ×4 (02:28→19:54)
[2019-08-02 05:44] LABS: IONIZED CALCIUM 4.2 MG/DL (4.5-5.3)
[2019-08-02 06:07] LABS: PHOSPHORUS LEVEL 4.8 MG/DL (2.5-4.9)
[2019-08-02 06:08] LABS: CALCIUM LEVEL 7.6 MG/DL (8.8-10.2); CREATININE FOR GFR 2.36 MG/DL (0.70-1.30); GLOMERULAR FILTRATION RATE 28.9 (>42); MAGNESIUM LEVEL 2.1 MG/DL (1.8-2.4); POTASSIUM SERUM 4.4 MEQ/L (3.5-5.1)
[2019-08-02 06:13] LABS: ABG BASE EXCESS 0.3 (-2.0-2.0); ABG HCO3 23.7 MEQ/L (22.0-26.0); ABG O2 SATURATION 94.7 % (95.0-99.0); ABG PARTIAL PRESSURE CO2 33.2 mmHg (35.0-45.0); ABG PARTIAL PRESSURE O2 74.1 mmHg (75.0-100.0); ABG STANDARD HCO3 24.7 MEQ/L (22.0-26.0); ABG TOTAL CO2 24.7 MEQ/L (23.0-31.0); ABG pH (ARTERIAL) 7.471 UNITS (7.350-7.450)
--- NOTE | 2019-08-02 07:37 | REP ---
Clinical: Respiratory failure. Comparison: 08/01/2019. Findings: Right IJ line, Endotracheal tube and nasogastric tube are in stable satisfactory position. Mediastinum and cardiac silhouette stable. Left lower lobe/retrocardiac consolidation and patchy bilateral infiltrates are again appreciated and relatively stable. Small layering effusion cannot be excluded. No pneumothorax. Skeletal structures stable. Impression: 1. Lines and tubes in stable position. 2. Left lower lobe/retrocardiac consolidation and patchy scattered infiltrates essentially unchanged. Electronically Signed by Samuel Hurley MD 08/02/2019 07:28 A
--- NOTE | 2019-08-02 08:09 | IPN ---
DATE:08/02/2019 As suggested yesterday the patient had to be intubated later on in the day and once he was intubated a OG tube was placed. OG tube has been draining a fair bit of fluid and fortunately, the patient's abdominal distension has improved substantially overnight and his white count has dropped 22,000 this morning. However, most notably from a general surgery standpoint his abdomen is much less distended. I am able to reduce the parastomal hernia, although the patient is quite agitated and difficult to keep his hands away while I am performed the reduction but I am able to reduce this relatively easily and the patient is not complaining of any significant pain in that area. The patient does reactive peripheral pain stimuli. IMPRESSION AND PLAN 1. Events overnight have been noted, very complex individual with multiple issues ongoing at this time. I will yen down on the general surgical issues that have been asked of me specifically pancreatitis and at this point I anticipate this an original development that occurred at the time of his original sepsis / hypotension episode and this has some residual abnormality appreciated around the pancreas. I anticipate that this should continue to resolve over the ensuing 6-8 weeks. However, at this point since we have not developed a true pseudocyst I anticipate this should continue to improve. He says he also had some improvement of GI function initially after his prolonged recovery. This also would imply that this should resolve and his GI symptoms should improve as well. 2. Ileus. I anticipate this is not a true bowel obstruction but a true ileus and thus at this point my I thought is that we will keep the NG tube in place keep him nothing by mouth and I would recommend starting TPN on him when feasible. Unfortunately he is a very complex individual with issues that are difficult to discern at this point and I am not sure if he has developed a primary respiratory issue or an aspiration pneumonia secondary to ileus secondary to a primary infectious etiology. This will let the medicine experts he is out the possible answers to. Otherwise from a surgical standpoint operative intervention for this high risk individual for a parastomal hernia repair and is not advocated or recommended.
[2019-08-02] MEDS: PANTOPRAZOLE 40MG INJ (PROTONIX) (C9113) IV SCH ×2 (08:19→20:14)
[2019-08-02] MEDS: MEROPENEM INJ 1 GM in IV 1 EA IV SCH ×2 (08:19→20:13)
[2019-08-02] MEDS: CHLORHEXIDINE GLUCONATE 0.12 % 15ML UDC (PERIDEX ORAL RINSE) MT SCH ×2 (08:19→20:13)
[2019-08-02] MEDS: propylthiouraciL 50 MG TAB PO SCH ×2 (08:19→20:13)
[2019-08-02] MEDS: ASPIRIN 81 MG CHEW TABLET PO SCH (08:20)
[2019-08-02] MEDS: TRIAMCINOLONE ACET 0.1% OINTMENT 15 GM TOP SCH ×2 (08:20→20:14)
[2019-08-02] MEDS: BETAMETHASONE DIP 0.05% OINT 15 GM TOP SCH ×2 (08:20→20:14)
--- NOTE | 2019-08-02 10:30 | CCN ---
DATE: 08/02/2019 CRITICAL CARE TIME: 1 hour and 34 minutes, this excludes all proedures. Mr. Higgins required sedation overnight, has agitation, attempting to remove critical access devices. He was receiving CVVHD pause due to a hole in the external portion of the catheter. This needs to be changed out if he is going to proceed with CVVHD/CCRT. There have been no significant arrhythmias overnight. Blood pressure has been adequate at 101/50 this morning on no vasopressor therapy. Yesterday, signs of obvious upper GI bleed with dark GI contents. He was transfused 2 units for anemia likely secondary to GI blood loss. Unable to provide any history this morning as he is intubated on mechanical ventilation. PHYSICAL EXAMINATION: Temperature is 96.2, pulse is 98, blood pressure is 101/50, respiratory rate is 31, oxygen saturations 97% on 0.35 FiO2. General: Agitated on mechanical ventilation during noc analyst sedation. HEENT: Sclerae clear and anicteric. Pupils equal and react to light. Mucous membranes moist. Tongue is midline. Neck is supple. There is elevated jugular venous pulse (JVP). Pulmonary: Clear to auscultation. Without rales, rhonchi or wheezes. No dullness to percussion. No accessory muscle use. Cardiac: Tachycardiac. S1, S2, without audible murmur, rub or gallop. There is elevated JVP. There is minimal peripheral edema. Abdomen: Fairly soft, but has peristomal hernia. No masses palpated. Normoactive bowel sounds. Extremities: No cyanosis or clubbing. Edema as mentioned above. Skin: Diffuse exfoliative rash. LABORATORY EVALUATION: Shows a sodium of 145, potassium 4.4, chloride 110, bicarb of 26, BUN of 38, creatinine of 2.36. Arterial blood gas shows a pH of 7.47, pCO2 of 33 and pO2 of 74. White blood cell count is 22.2, hemoglobin 9.2, hematocrit of 29.1, with a platelet count of 129. Chest x-rays shows predicted adequate placement of the endotracheal tube. There is a cardiac lead just over the alanna. There are minimal bibasilar abnormalities without significant infiltrate and some cephalization. There is blunting of the left costophrenic angle with an elevated diaphragm and distended bowel underneath. IMPRESSION: 1. Respiratory failure secondary to hypotension and shock-like state. It is not clear whether it was from acute GI bleed, blood loss or sepsis. He has an elevated white count and is being covered with antibiotic therapy. However, given his diffuse rash and prolonged antibiotic therapy, would be cautious with antibiotic use. 2. Acute renal failure being managed by nephrology. Appreciate their input. Avoid sedatives as much as possible. The patient had difficulty being extubated due to his agitated state in the past. 3. GI bleed. Protonix increased to twice a day. No evidence of ongoing bleeding, however, had minimal rectal bleeding this morning. Hemoglobin is 9.2. Would recommend continue monitoring this. 4. Sepsis. Currently off vasopressor therapy. Blood cultures showed no growth. [id number] is obtained as micafungin was added yesterday. The patient did seem to respond to antifungals on his last ICU stay. Will de-escalate as soon as possible due to the diffuse exfoliative rash of unknown etiology. 5. Ileus with malnourishment and GI bleed. At this point in time, nothing by mouth (n.p.o.), NG tube to intermittent suction. The patient remains critically ill. Critical care time was 1 hour and 34 minutes, this excludes all procedures.
[2019-08-02] MEDS ORDERED: VANCOMYCIN INTERMITTENT/PULSE DOSING BY CLINICAL PHARMACIST PER DOSING PROTOCOL XX SCH (10:45)
[2019-08-02] MEDS ORDERED: SODIUM CHLORIDE 0.9% 1000ML IV ONE (10:45)
[2019-08-02 12:31] LABS: ALBUMIN 2.7 GM/DL (3.2-5.2); CALCIUM LEVEL 7.7 MG/DL (8.8-10.2); CREATININE FOR GFR 2.41 MG/DL (0.70-1.30); GLOMERULAR FILTRATION RATE 28.3 (>42); PHOSPHORUS LEVEL 4.8 MG/DL (2.5-4.9); POTASSIUM SERUM 4.3 MEQ/L (3.5-5.1)
--- NOTE | 2019-08-02 12:41 | IPN ---
DATE OF SERVICE: 08/02/2019 SUBJECTIVE: The patient was seen and examined at the bedside today morning in the ICU. The patient was started on CVVHDF yesterday at around noon time. However, I was called at around midnight last night that the venous port of the dialysis catheter in the right groin was having some blood leakage. There was a small hole in the catheter. CVVHDF was stopped at this point. There is no further leakage from the catheter at this time. His electrolytes and acid base status is within the acceptable range. The patient is off the pressors at this time. He started making a very small amount of urine. He made around 10 mL of urine in the morning. He is afebrile and hemodynamically stable. The patient is still intubated at this time. FiO2 requirement is only 35% on the vent. His leukocytosis is getting better. The patient himself is unable to provide any review of systems at this time. OBJECTIVE: Vital Signs: Temperature is 96.2 degrees Fahrenheit, blood pressure 101/50, pulse is 98, respiratory rate of 29, saturating 97% on the vent with 35% FiO2. Intake and Output: Urine output recorded as only 23 mL since overnight. Gastric drainage is 150 mL since overnight. Weight in the bed scale is 84.8 kg. PHYSICAL EXAMINATION: General: The patient is intubated, lightly sedated. Eyes are closed. Otherwise he is moving extremities. Head and Neck Exam: Eyes are closed. Pupils are equally round and reactive to light. Patient has an endotracheal tube and orogastric tube. Neck is supple. There is no jugular venous distention (JVD). Cardiovascular: S1, S2, tachycardia. No edema of the bilateral lower extremities. Respiratory: Mildly decreased breath sounds at the bases, otherwise no active rales or rhonchi. Abdomen: Soft, very diminished bowel sounds. He has a left lower quadrant ostomy. Tenderness to deep palpation in the abdomen all over. Parastomal hernia was noted in the left side. Genitourinary: He has an indwelling Davila catheter. He has a very small amount of dark colored urine in the bag at this time. Musculoskeletal: No clubbing or cyanosis. No edema of the bilateral lower extremities. METALIZER FIELD OPERATION: The patient is intubated, lightly sedated and moves extremities to painful stimuli. Skin: The patient has very dry and scaly skin all over. LAB REVIEW: CBC showed a WBC of 22.2, hemoglobin is 9.2, platelets of 129. PTT today morning is 77.8. ABG done in the morning showed a pH of 7.47, pCO2 of 33, pO2 74, bicarb is 23.7, and O2 sat is 94.7%. BMP showed sodium of 145, potassium 4.4, chloride 110, bicarb 26, BUN 38, creatinine is 2.3, ionized calcium 4.2, magnesium is 2.1. Vancomycin trough is 23.9 today morning. Microbiology: Blood cultures so far negative from yesterday's blood draws. IMAGING: A chest x-ray was done today morning which showed lines and tubes in stable position. Left lower lobe retrocardiac consolidation and patchy infiltrate is essentially unchanged. CURRENT INPATIENT MEDICATIONS: The patient's medications were all reviewed by myself. His Levophed has been stopped now. He continues to be on IV meropenem. He is also on micafungin 150 mg IV daily. No other significant change in the medications today as compared with yesterday. ASSESSMENT/PLAN: 1. Acute oliguric renal failure. The patient got CVVHDF for about 12 hours yesterday. He is off the pressors at this time. I am going to give him a normal saline bolus 1 liter. If he starts making urine after that, I would hold off on further dialysis. However, if the patient remains oliguric, I might do a few hours of bed side regular hemodialysis since his blood pressures are better now. 2. Sepsis secondary to ileus and pneumonia. The patient was on pressors overnight. He is off the pressors at this time. He also got IV albumin yesterday. Clinically , he still looks dry. I have ordered 1 liter of normal saline bolus. Vancomycin level is supratherapeutic at this time. He continues to be on meropenem. He was also started on micafungin yesterday. 3. Small bowel obstruction. The patient continues to have NGT with suctioning. I am going to start the patient on IV D5 containing fluid. 4. Anemia secondary to recent GI bleed. He is status post PRBC transfusion. He is also on Carafate and Protonix. Hemoglobin level is stable. 5. Chronic steroid dependence. The patient is getting stress dose hydrocortisone at this time. 6. Vent dependent respiratory failure. The patient's FiO2 requirement is decreasing now. Vent management is as per primary service. Respiratory acidosis has resolved now. 7. Malfunctioning of the right femoral temporary dialysis catheter. There was leakage of blood from the venous port. The catheter is not being used at this time. If we need to start doing regular bedside hemodialysis then catheter will be changed. Total critical care time spent in the management of this patient today morning in the ICU is 50 minutes, that does not include any procedures. ASHLEYD
[2019-08-02 13:56] LABS: CORTISOL AM 220.7 UG/DL (4.3-22.4)
[2019-08-02] MEDS: MIDAZOLAM HCL 100 MG in D5W 80 ML IV SCH (14:04)
--- NOTE | 2019-08-02 16:39 | IPNPDOC ---
Date Seen The patient was seen on 08/02/19. Progress Note HISTORY OF PRESENT ILLNESS: 74-year-old male with past medical history of diabetes mellitus, hypertension, COPD, hyperthyroidism, chronic kidney disease presents to the emergency room with shaking of his arms and malaise. Patient was admitted 1 month ago for right hip fracture status post mechanical fall, presented to emergency room 1 week ago with cellulitis, was advised to be admitted by emergency room staff but patient refused to be admitted and went home. Patient has a history of signing out AMA. Patient currently reports he has had poor oral intake for the past few days, chills and fever, urinary incontinence. He denies any chest pain, nausea, vomiting, abdominal pain or diarrhea. 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 07/31/19 In the interim, patient has developed worsening leukocytosis with imaging concerning for pancreatitis, although patient has benign abdomen and lipase is within normal limits. Patient underwent surgical evaluation, scheduled to have MRCP for further evaluation. Patient without any medical complaints today, agitated about his hospitalization, wishes to go home, refusing rehabilitation, refusing to work with physical therapy. He denies any shortness of breath, chest pain, nausea, vomiting, abdominal pain or diarrhea at this time. 08/01/19 Patient decompensated overnight, initially developed acute hypercapnic respir atory acidosis for which she was transferred to PCU, subsequently became hypotensive and transferred to the ICU, received IV fluid bolus followed by levophed infusion. Patient was seen in the morning, clearly altered compared to yesterday, asking me to leave him alone, refusing physical examination or answering any questions. Patient was offered NG tube placement last night prior to decompensation due to large volume of fluid noted in his stomach on MRCP and one episode of emesis, he refused. He was once again offered NG tube placement today, which he is refusing. Patient was reevaluated in the afternoon, remains altered, but more amenable to treatment at this time. He has had minimal urine output since this morning, renal function worsening, discussed case with Dr. Rasmussen who agrees the patient will likely need to go back on CRRT and recommends placement of Denver catheter. Verbal consent obtained from patient's , who as of right now wants all treatment available, Denver catheter was then placed in his right femoral vein using ultrasound guidance and sterile technique. Patient was agitated during the procedure, requiring mild sedation with Ativan 2 mg IV (given separately 1 mg at a time, 10 minutes apart). After the procedure, patient remained somnolent and started to become hypoxemic after 30 minutes, repeat ABG showed worsening respiratory acidosis with profound hypoxemia, likely related to aspiration of gastric contents. Patient was emergently intubated by Dr. Guzman. Patient was reevaluated in the evening, now on CRRT, comfortable with mild sedation on mechanical ventilation, awaiting PRBC transfusion, received IV albumin in the interim, off of Levophed at this time. 08/02/19 Patient has been off of Levophed since 3 AM, started having a leak through the external tubing of Denver catheter around midnight, has been off of CRRT since then. He remains intubated and sedated on Versed, moving all extremities, unable to follow commands at this time. He has had minimal urine output. PHYSICAL EXAMINATION: VITAL SIGNS: Please see below. GENERAL: Sedated on mechanical ventilation HEENT: Size 8 ET tube 22 cm at the lip NECK: Supple CARDIOVASCULAR EXAMINATION: S1, S2 RESPIRATORY EXAMINATION: Scattered rhonchi ABDOMINAL EXAMINATION: Soft, nondistended, hypoactive bowel sounds, ostomy with minimal output EXTREMITIES: Diffuse edema SKIN: Scattered erythema NEUROLOGICAL EXAMINATION: Sedated LABORATORY DATA: See below. MICROBIOLOGY: Please see below. ASSESSMENT: 74-year-old male with past medical history of type please mellitus, hypertension, COPD, hypothyroidism and chronic kidney disease was admitted for septic shock, acute respiratory failure and acute renal failure requiring multiple vasopressors CRRT and endotracheal intubation with mechanical ventilation, now returns to the ICU with small bowel obstruction, possible GI bleed, septic shock, acute on chronic renal failure, acute respiratory failure and reintubated. PLAN: 1. Acute hypercapnic and hypoxemic respiratory failure Reintubated, likely due to aspiration of gastric contents and Ativan given for Denver catheter placement. Sedated on Versed drip. 2. Septic shock Unknown etiology, possible GI source, now with aspiration pneumonia/pneumonitis. On broad-spectrum coverage with vancomycin, Merrem and micafungin, cultures pending. Remains on stress dose steroids and IV albumin to augment volume resuscitation. 3. Possible GI bleed. Significant drop in hemoglobin with coffee ground gastric fluid aspirated through NG tube, continue Protonix 40 mg twice a day, Carafate 1 g every 6 hours, no GI coverage at this time, status post 2 units of packed red blood cells, further transfusion as needed to maintain hemoglobin greater than 8. 4. Acute on chronic kidney disease. Renal function has profoundly worsened, likely due to septic shock, minimal urine output, nephrology was reconsulted, tolerated 12 hours of CRRT, Denver catheter with peak and external tubing, plan for permacath placement by IR, hemodialysis tomorrow if blood pressure stable, without vasopressors. 5. Diabetes mellitus. Hold metformin, sliding still insulin every 6 hours. 6. Hyperthyroidism. Continue propylthiouracil 7. Gout. Hold allopurinol for now DVT prophylaxis: TEDs GI prophylaxis: PPI VS, I&O, 24H, Fishbone Vital Signs/I&O Vital Signs Date Time Temp Pulse Resp B/P (MAP) Pulse Ox O2 Delivery O2 Flow Rate FiO2 08/02/19 16:00 30 35 08/02/19 16:00 96.2 93 108/51 (70) 98 Ventilator 08/01/19 14:45 4.0 I&O- Last 24 Hours up to 6 AM 08/02/19 06:00 Intake Total 5306.0 ml Output Total 133 ml Balance 5173.0 ml Laboratory Data 24H LABS Laboratory Tests 2 08/01/19 18:21: Bedside Glucose (Misc Panel) 242H 08/02/19 00:00: Nucleated Red Blood Cells % (auto) 0.2H, Activated Partial Thromboplast Time 77.8H, Anion Gap 10, Glomerular Filtration Rate 31.7L, Calcium Level 7.4L, Whole Blood Ionized Calcium 4.2L, Phosphorus Level 4.2#, Magnesium Level 1.9 08/02/19 05:36: Anion Gap 9, Glomerular Filtration Rate 28.9L, Calcium Level 7.6L, Whole Blood Ionized Calcium 4.2L, Phosphorus Level 4.8, Magnesium Level 2.1, Blood Gas Bicarbonate Standard 24.7, Arterial Blood pH 7.471H, Arterial Blood Partial Pressure CO2 33.2L, Arterial Blood Partial Pressure O2 74.1L, Arterial Blood Total CO2 24.7, Arterial Blood HCO3 23.7, Arterial Blood Base Excess 0.3, Arterial Blood Oxygen Saturation 94.7L, Cortisol AM Sample 220.7H 08/02/19 09:48: Vancomycin Level Trough 23.9H 08/02/19 11:26: Anion Gap 10, Glomerular Filtration Rate 28.3L, Calcium Level 7.7L, Phosphorus Level 4.8, Albumin 2.7#L CBC/BMP Laboratory Tests 08/02/19 00:00 08/02/19 05:36 08/02/19 11:26 Microbiology Microbiology 08/01/19 Blood Culture - Preliminary, Resulted No growth after 24 hours . All specim... 08/01/19 Blood Culture - Preliminary, Resulted No growth after 24 hours . All specim... 08/01/19 Blood Culture - Preliminary, Resulted No growth after 24 hours . All specim... 07/26/19 Urine Culture - Final, Complete 07/26/19 Blood Culture - Final, Complete NO GROWTH AFTER 5 DAYS SHARLA LUI MD Aug 02, 2019 16:39
[2019-08-02] MEDS: D5W/0.9% SODIUM CHLORIDE 1,000 ML IV SCH (17:59)
[2019-08-02] MEDS: NOREPINEPHRINE BITARTRATE 16 MG in D5W 484 ML IV SCH (23:54)
[2019-08-03] VITALS (74 sets, daily range): BP systolic 80–136; BP diastolic 44–68
[2019-08-03] MEDS: DIMETHICONE 2% OINTMENT(VANIPLY) 70GM TUBE TOP SCH ×5 (00:54→23:05)
[2019-08-03] MEDS: HumaLOG INSULIN (NovoLOG) PER UNIT SC SCH ×5 (00:58→23:12)
[2019-08-03] MEDS: SUCRALFATE SUSP 1GM/10ML UD PO SCH ×5 (00:58→23:05)
[2019-08-03] MEDS: IPRATROPIUM 0.5MG/ALBUTEROL 2.5MG INH SOL UD 3ML (DUONEB)(J7620) NEB SCH ×4 (01:25→20:03)
[2019-08-03] MEDS: HYDROCORTISONE 100 MG/2 ML VIAL (J1720 PER 1) IV SCH ×3 (02:03→18:18)
[2019-08-03 05:12] LABS: HEMATOCRIT 24.9 % (42.0-52.0); HEMOGLOBIN 7.9 g/dl (13.5-17.5); MEAN CORPUSCULAR HGB CONC 31.7 g/dl (32.0-36.5); MEAN CORPUSCULAR VOLUME 94.7 fl (80.0-96.0); PLATELET COUNT, AUTOMATED 104 10^3/uL (150-450); RED BLOOD COUNT 2.63 10^6/uL (4.30-6.10); WHITE BLOOD COUNT 17.5 10^3/uL (4.0-10.0)
[2019-08-03 05:40] LABS: ALBUMIN 2.5 GM/DL (3.2-5.2); CALCIUM LEVEL 7.8 MG/DL (8.8-10.2); CREATININE FOR GFR 2.93 MG/DL (0.70-1.30); GLOMERULAR FILTRATION RATE 22.6 (>42); MAGNESIUM LEVEL 2.2 MG/DL (1.8-2.4); PHOSPHORUS LEVEL 4.7 MG/DL (2.5-4.9)
[2019-08-03 05:52] LABS: ABG BASE EXCESS -1.8 (-2.0-2.0); ABG HCO3 22.1 MEQ/L (22.0-26.0); ABG PARTIAL PRESSURE CO2 34.1 mmHg (35.0-45.0); ABG PARTIAL PRESSURE O2 109.2 mmHg (75.0-100.0); ABG STANDARD HCO3 22.9 MEQ/L (22.0-26.0); ABG TOTAL CO2 23.2 MEQ/L (23.0-31.0)
--- NOTE | 2019-08-03 05:52 | PHACANCOPD ---
PHARMACY VANCOMYCIN DOSING Pt Demographics Demographics Patient Age:74 , Weight:84.800 , Gender: male Adjusted Body Weight Date: 07/05/19, Adjusted Body Weight: [76.8] Kg Events Past 24 Hours Events Past 24 Hours: NO: Dialysis, Diuretic Therapy, Change in CrCl, Fever, Elevation in WBC, Pending Diagnostics, Pending Procedures, Other Vancomycin Vancomycin indication: severe sepsis Vancomycin Target Ranges: 15-20 mcg/ml Vancomycin Load Y/N: Yes Load Dose Date Time Vancomycin Load Dose: 2 GM Date: 07/30/19 Time: 1400 Vancomycin Dose Date: 08/01/19. Current Vancomycin Dose: INTERMITTENT Intermittent Dosing?: Yes Labs Labs Item Value Date Time White Blood Count 17.5 10^3/uL H 08/03/19 0501 Glomerular Filtration Rate 22.6 L 08/03/19 0501 Creatinine 2.93 MG/DL H 08/03/19 0501 Blood Urea Nitrogen 42 MG/DL H 08/03/19 0501 Random Vancomycin Level 22.7 UG/ML 08/03/19 0501 Vital Signs Label Value Date Time Patient Temperature 96.7 degrees F 08/03/19 0501 Temperature Source Temporal 08/03/19 0501 Micro Microbiology 08/01/19 Blood Culture - Preliminary, Resulted No growth after 24 hours . All specim... 08/01/19 Blood Culture - Preliminary, Resulted No growth after 24 hours . All specim... 08/01/19 Blood Culture - Preliminary, Resulted No growth after 24 hours . All specim... 07/26/19 Urine Culture - Final, Complete 07/26/19 Blood Culture - Final, Complete NO GROWTH AFTER 5 DAYS Creatinine Clearance Date:08-03-19. Creatinine Clearance: [~20] Pending Labs Random 08-03 in am Assessment and Plan Maintaining Current Dose?: Yes Reason for dose change: No Dose Change Pharmacist Note Pharmacist Note Date: 08-03-19. Pharmacist note: Patient currently on intermittent dosing per levels. Random of 22.7 is above target range. Patient to recieve no dose today. Will monitor and dose as needed. HAYDEN SARKAR PHARMAC[facility] Aug 03, 2019 05:52
[2019-08-03] MEDS: MIDAZOLAM HCL 100 MG in D5W 80 ML IV SCH ×2 (06:08→13:31)
[2019-08-03] MEDS: D5W/0.9% SODIUM CHLORIDE 1,000 ML IV SCH (06:09)
[2019-08-03] MEDS ORDERED: LIDOCAINE 1% MDV 20ML VIAL As Ordered ONE (06:48)
[2019-08-03] MEDS ORDERED: ISOVUE-300 61% 50ML VIAL (Q9967) As Ordered ONE (06:48)
[2019-08-03] MEDS ORDERED: HEPARIN 1,000 UNITS/ML 10ML VIAL (FOR RADIOLOGY& DIALYSIS ONLY) As Ordered ONE (07:16)
--- NOTE | 2019-08-03 07:57 | POST-OPPD ---
Postoperative Procedure Note Date Of Procedure: Aug 03, 2019 Time Of Procedure: 07:54 PREOPERATIVE DIAGNOSIS: RF POSTOPERATIVE DIAGNOSIS: RF FINDINGS: patent right IJ PROCEDURE: right side temporary dialysis catheter placed. patient not appropriate for permcath at this time. will convert to perm prior to discharge if appropriate. SURGEON: shankar ANESTHESIA: local ESTIMATED BLOOD LOSS: < 5 ml COMPLICATIONS: none POSTOPERATIVE CONDITION: stable LISA PAUL MD Aug 03, 2019 07:57
--- NOTE | 2019-08-03 08:09 | REP ---
Clinical: Respiratory failure. Comparison: 08/02/2019 Findings: Endotracheal tube approximately 3 cm above the alanna. Nasogastric tube courses below left hemidiaphragm. Right central line with tip in the SVC. Cardiac silhouette is stable. Left lower lobe consolidation with small pleural effusion and right lower lobe atelectasis noted. No pneumothorax. Impression: 1. Lines and tubes in satisfactory position. 2. Left lower lobe consolidation with small left effusion and right basilar atelectasis Electronically Signed by Samuel Hurley MD 08/03/2019 08:00 A
[2019-08-03] MEDS: CHLORHEXIDINE GLUCONATE 0.12 % 15ML UDC (PERIDEX ORAL RINSE) MT SCH ×2 (08:36→20:13)
[2019-08-03] MEDS: propylthiouraciL 50 MG TAB PO SCH ×2 (08:36→20:13)
[2019-08-03] MEDS: PANTOPRAZOLE 40MG INJ (PROTONIX) (C9113) IV SCH ×2 (08:36→20:14)
[2019-08-03] MEDS: MEROPENEM INJ 1 GM in IV 1 EA IV SCH ×2 (08:36→19:31)
[2019-08-03] MEDS: BETAMETHASONE DIP 0.05% OINT 15 GM TOP SCH ×2 (08:37→20:25)
[2019-08-03] MEDS: TRIAMCINOLONE ACET 0.1% OINTMENT 15 GM TOP SCH ×2 (08:38→20:15)
[2019-08-03 09:37] LABS: INR 2.01; PROTHROMBIN TIME 22.6 SECONDS (11.8-14.0)
[2019-08-03 09:38] LABS: PARTIAL THROMBOPLASTIN TIME 47.9 SECONDS (25.0-38.4)
--- NOTE | 2019-08-03 11:13 | CCN ---
DATE: 08/03/2019 The patient was seen and examined this morning during bedside rounds. Overnight, the patient was sedated on a Versed drip. His agitation has improved and he did not have any significant events overnight. The patient initially had been off of Levophed since yesterday, but early this morning he was noted have some hypotension and was restarted on Levophed at around 1 to 2 mcg/min. The patient continues to have dark output from his OG tube. This morning, he was noted to have a slight amount of bright red blood in his OG tube. In his endotracheal tube, he continues to have some dark output with suctioning. PHYSICAL EXAMINATION; Temperature is 96.7, pulse is 104, respirations 24, blood pressure 97/54, O2 sat 98% on 35% FiO2. Ins 2.3 liters, out 310 mL (urine output is 90 mL). General: The patient is intubated and sedated. He is responsive to painful stimuli and intermittently agitated, but not following commands. HEENT: Normocephalic, atraumatic. Pupils are equal and reactive to light bilaterally. There are moist mucous membranes noted. Neck is supple. Trachea is midline. There is no palpable cervical adenopathy. There is elevated jugular venous pulse (JVP). Cardiac: Tachycardiac, regular S1, S2, without any appreciable murmurs. PMI is displaced laterally. Pulmonary: Coarse ventilated breath sounds bilaterally with no significant wheezes or rhonchi. There are diminished breath sounds in the bases bilaterally. Abdomen: Soft, mildly distended. The patient has a colostomy in place with a peristomal hernia. There are well healed surgical incisions. There are diminished bowel sounds. Extremities: There is pitting edema in the bilateral lower extremities. Skin: There is a diffuse exfoliative rash with some erythema of the skin diffusely. LABORATORY DATA: WBC 17.5, hemoglobin trending down to 7.9, platelets trending down to 104. Chemistry: Sodium is 148, potassium 4.0, chloride is 114, bicarb 23, BUN 42, creatinine is 2.93, glucose is 280. ABG: pH 7.430, pCO2 of 34.1, pO2 of 109.2. IMAGING: Chest x-ray shows ET tube in good position. There is an OG tube in place coursing below the diaphragm. There is a right subclavian hemodialysis catheter in place. There are bilateral interstitial opacities with pulmonary vascular congestion. There is atelectasis in the right lower lobe and on the left side there is consolidation/atelectasis in the left lower lobe with blunting of the left costophrenic angle. There is a left IJ triple lumen crossing over midline. ASSESSMENT AND PLAN: Mr. Higgins is a 74-year-old male with a history of diabetes, hypertension, chronic obstructive pulmonary disease (COPD), and chronic kidney disease (CKD) who had presented initially in the beginning of April with septic shock and acute respiratory failure requiring intubation and mechanical ventilation. The patient was treated with broad-spectrum antibiotics as well as with antifungals during his initial admission in the intensive care unit (ICU) and with his initial septic shock. He was on vasopressors ,but he was weaned off of vasopressors and he was extubated to nasal cannula oxygen supplementation. The patient also had acute on chronic renal failure and was initially on CRRT when in the ICU. He was downgraded to the floor where he was being monitored. The patient has also been on total parenteral nutrition (TPN) via a PICC line for nutritional supplementation. His PICC line was ultimately removed on 07/19 and the patient was taken off of TPN. The patient was also off of antibiotics at some point. However on 07/26/2019, the patient was noted to have increased leukocytosis and his doxycycline and meropenem was restarted. His antibiotics were then changed subsequently to Cefepime and vancomycin. The patient was also noted to have increasing abdominal distention secondary to ileus. He was also noted to be hypotensive requiring Levophed for vasopressor support. The patient was noted to have worsening of respiratory acidosis as well as evidence of aspiration and he was ultimately intubated on the evening of 08/01/2019. After intubation, the patient had an OG tube in place which showed coffee-ground output. He also had some dark output on suctioning from his endotracheal tube consistent with some aspiration. The patient was noted to have decreasing hemoglobin/hematocrit (H/H) and he was transfused yesterday with 2 units of packed red blood cells (PRBCs). He also was hypoalbuminemic and he was given 8 vials of albumin as well. The patient was able to be weaned off of the Levophed yesterday. However, overnight was noted to be hypotensive again and requiring very small doses of Levophed for blood pressure support. His hemoglobin has also been trending down and he was ordered for another unit of PRBC this morning. 1. Acute respiratory failure in the setting of the shock secondary to acute GI bleed as well as possible sepsis. There is also a concern for aspiration pneumonia and some evidence of fluid overload and pulmonary edema on his chest x-ray this morning. - Continue the patient with mechanical ventilation on volume control. Will decrease his respiratory to 18 and continue him on settings then of 420/18/35/5. - Continue with daily ABGs and chest x-rays while intubated. - Continue with vent bundle care with head of bed elevation and chlorhexidine mouthwash. 2. Sepsis initially likely secondary to a GI source given his evidence of possible pancreatic pseudocyst formation and pancreatitis. The patient also now with evidence of aspiration pneumonia secondary to his acute ileus. The patient has been on broad-spectrum antibiotics with vancomycin and meropenem. His cultures are negative. Micafungin was added to his antibiotic regimen yesterday. His [id number] is still pending. - Will check a methicillin-resistant Staphylococcus aureus (MRSA) nasal screen and if negative would discontinue vancomycin. Would continue with meropenem for gram-negative and anaerobic coverage and continue with his micafungin for now. The patient has had a diffuse exfoliative rash since his admission which may be secondary to drug reaction. Would need to continue to monitor, but it does not seem to be worsening. - The patient was on chronic prednisone for his gout as well as for his history of COPD reportedly. It is unclear entirely why he has been on the prednisone chronically. Given his shock, he was started on stress dose steroids with hydrocortisone. Will wean down his hydrocortisone to 50 mg every 8 hours. 3. Acute renal failure, being managed by nephrology. The patient was on CVVHD yesterday via a hemodialysis catheter in his femoral vein. However, there was noted to be a hole in the external portion of the catheter and so he had a Perma-Cath placed for hemodialysis access. Would discontinue the femoral groin catheter. Continue with dialysis as per renal. The patient was given a trial of fluids with normal saline bolus as well as albumin yesterday, but did not have any improvement in his urine output. He was started on D5 normal saline, but has been increasingly hyperglycemic despite receiving correction. Would discontinue the D5 NS at this point and follow up with renal recommendations. His chest x-ray also appears to have evidence of pulmonary edema and he is noted to be more edematous on examination. 4. Acute GI bleed. The patient had shock initially secondary to possible GI bleed or sepsis. He was off of Levophed, but overnight did require a small dose of Levophed for blood pressure support. His H/H has trended down and he was ordered for unit of PRBC this morning. Suspect with the transfusion that he will be able to be weaned off of the Levophed. The patient's platelets are also trending down. Would need to continue to monitor. Will check his coags today as well as fibrinogen to monitor for disseminated intravascular coagulation (DIC). Continue with Protonix twice a day and continue with OG tube to low wall intermittent suction. Surgery has been following and will continue to monitor and appreciate their recommendations. - Continue with the active type and screen. DEEP VEIN THROMBOSIS (DVT) PROPHYLAXIS: Thromboembolic deterrent stockings (TEDS) and sequential compression devices (SCDS). GASTROINTESTINAL (GI) PROPHYLAXIS: Protonix. CODE STATUS: Full code. Total critical care time spent not including any procedures was approximately 1hr and 15mins minutes. MTDD
--- NOTE | 2019-08-03 11:15 | REP ---
IR Vas cath placement. Vas cath placement using fluoroscopy and ultrasound guidance. Ultrasound of the right neck. Clinical information: Renal failure. Needs dialysis. Disorientated and intubated. Not appropriate for PermCath at present. Physician: Dr. Burnham. 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 The time-out was performed with verification of the patient's name, MRN, site of procedure and type of procedure to be performed. The patient was positioned in the supine position on the angiographic table. The site was prepped and draped in the usual sterile fashion. Moderate sedation was not performed. The physician spent 45 minutes of continuous face to face time with the patient. A leather carver radiograph reveals no gross abnormality. Preliminary ultrasound of the right neck demonstrates patent right internal jugular vein. Local anesthesia using lidocaine was administered. A small incision was made above the clavicle. Using ultrasound guidance the right internal jugular vein was accessed using a lateral approach with a micro introduce needle. An 018 wire was advanced into the superior vena cava. The needle was removed and a micro introducer sheath was placed. An Amplatz wire was then passed into the inferior vena cava. The tract was dilated. A Bard Trialysis vas cath dialysis catheter was inserted over the wire under fluoroscopy guidance. The catheter tip was positioned at the atrium and the wire was removed. All lumens flush and aspirate freely. The catheter was sutured to the skin with 2-0 Prolene. A sterile dressing was then applied. The patient tolerated the procedure well and was returned to the ICU in stable condition. EBL: < 5 ml. Complications: None. Conclusion: 1. Successful placement of a Bard Trialysis dialysis catheter via the right internal jugular vein. The catheter is ready for immediate use. 2. Once the patient is improved and if appropriate, the catheter will be converted to a Perma-Cath prior to discharge. Thank you this referral. Electronically Signed by Glenis Burnham MD 08/03/2019 11:14 A
[2019-08-03] MEDS ORDERED: PHYTONADIONE 10MG/ML INJECTION (J3430) SC ONE (12:45)
--- NOTE | 2019-08-03 12:53 | IPN ---
DATE OF SERVICE: 08/03/2019 SUBJECTIVE: The patient was seen and examined at the bedside today morning in the intensive care unit (ICU). He continues to be intubated. Last 24-hour events were noted because of hypotension the patient needed to be started on Levophed. He is currently on 1 microgram of Levophed. He is remains oliguric, there is no renal improvement so far. The patient also got dialysis catheter placed in the right IJ yesterday. He still has the dialysis catheter in the right groin as well. The patient is still requiring FiO2 of 100% on the vent at this time in order to oxygenate him. He is unable to provide any review of systems because he is intubated and sedated. OBJECTIVE: Vital signs: Temperature is 96.8 degrees Fahrenheit, blood pressure is 90/52, pulse is 106, respiratory rate of 20, saturating 99% on the vent with 100% FiO2. Intake and output - urine output recorded is only 30 mL since overnight. Weight in the bed scale is 85.5 mL. PHYSICAL EXAMINATION: General: The patient is intubated, sedated, laying in the bed, having some movements of the upper extremities. Head and neck exam: Eyes are closed. Pupils are equally round and reactive to light. Patient has an endotracheal tube and orogastric tube. Neck is supple. He has a right IJ double lumen catheter for dialysis. Cardiovascular: S1, S2, tachycardia. No edema of the bilateral lower extremities. Respiratory: Decreased breath sounds at the bases with mild respiratory crackles at the bases. Abdomen: Soft, tender to deep palpation, diminished bowel sounds, left-sided ostomy with the parastomal hernia was noted. Genitourinary: Indwelling Davila catheter with very small amount of the urine in the back Musculoskeletal: No clubbing or cyanosis. No edema of the bilateral lower extremities. 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 Skin: The patient has an erythematous and scaly rash all over the skin. LAB REVIEW: CBC showed WBC of 17.5, hemoglobin 7.9, platelets of 104, INR is 2, ABG done today morning showed pH of 7.43, pCO2 of 34, pO2 109, bicarb is 22, O2 sat is 98%. BMP showed sodium 148, potassium is 4, chloride 114, bicarb 23, BUN 42, creatinine is 2.9, calcium 7.8, phosphorus is 4.7, magnesium 2.2, albumin 2.5. IMAGING: A chest x-ray was done today morning which showed lines and tubes in satisfactory position, left lower lobe consolidation with small effusion and right basilar atelectasis. The patient got bard dialysis non-tunneled catheter placed yesterday. CURRENT INPATIENT MEDICATIONS: The patient's medications were all reviewed by myself. He is currently on Levophed at 1 microgram. He continues to be on IV meropenem. Hydrocortisone dose has been changed to 50 mg every 8 hours and the patient is going to get packed red blood cells (PRBC) transfusion today as well. ASSESSMENT AND PLAN: 1. Acute oliguric renal failure. The patient has a dialysis catheter available for use now. Since he is hypotensive requiring pressors, I am going to restart the patient on CVVHDF. I would keep the patient even for a MAP of 65-75, fluid removal for MAP above 75 and no fluid removal for MAP less than 65. 2. Sepsis secondary to ileus and pneumonia. The patient continues to require Levophed at around 1 microgram. Continue the empiric antibiotic, meropenem and vancomycin. No IV fluids are being given at this time. The patient is in positive fluid balance 3. Small-bowel obstruction. NGT sectioning is as per pulmonary critical care team. Abdomen remains tender. The patient has parastomal hernia as well. 4. Anemia secondary to gastrointestinal (GI) bleed. The patient is going to get more blood transfusion today. Continue Protonix and Carafate. 5. Chronic steroid dependence. Status post steroids. Hydrocortisone dose is being decreased to 50 mg every 8 hours. 6. Vent dependent respiratory failure. Vent management is as per primary team. I will try to remove some fluid to see if we can oxygenate him better. 7. Hypernatremia. Sodium level will be corrected with hemodialysis. DISPOSITION: The patient remains clinically ill and this is the second time during this same admission that he has been admitted to ICU and placed back on CVVHDF. Overall he has a poor prognosis. Total critical care time spent in the management of this patient today morning in the ICU was 50 minutes, that does not include any procedures.
[2019-08-03 14:07] LABS: % CD8 Pos Lymph 4.5 % (12.0-35.5); %CD4 Pos Lymphs 86.2 % (30.8-58.5); ABS Lymphs 0.7 x10E3/uL (0.7-3.1); ABS Monocytes 0.6 x10E3/uL (0.1-0.9); ABS Neutophils 18.4 x10E3/uL (1.4-7.0); Abs CD4 Helper 603 /uL (359-1519); Abs CD8 Suppres 32 /uL (109-897); CD4/CD8 Ratio 19.16 (0.92-3.72); Eosinophils 0 % (Not Estab.); HCT 25.6 % (37.5-51.0); HGB 8.6 g/dL (13.0-17.7); Imm ABS Grans 0.1 x10E3/uL (0.0-0.1); Immature Grans 1 % (Not Estab.); Lymphocytes 4 % (Not Estab.); MCH 30.2 pg (26.6-33.0); MCHC 33.6 g/dL (31.5-35.7); MCV 90 fL (79-97); Monocytes 3 % (Not Estab.); NRBC 1 % (0 - 0); Neutrophils 92 % (Not Estab.); Platelets 124 x10E3/uL (150-450); RBC 2.85 x10E6/uL (4.14-5.80); RDW 17.1 % (12.3-15.4); WBC 19.8 x10E3/uL (3.4-10.8)
[2019-08-03] MEDS: MIDAZOLAM INJ 2 MG/2 ML VIAL (J2250) IV PRN (17:16)
--- NOTE | 2019-08-03 17:21 | IPNPDOC ---
Date Seen The patient was seen on 08/03/19. Progress Note HISTORY OF PRESENT ILLNESS: 74-year-old male with past medical history of diabetes mellitus, hypertension, COPD, hyperthyroidism, chronic kidney disease presents to the emergency room with shaking of his arms and malaise. Patient was admitted 1 month ago for right hip fracture status post mechanical fall, presented to emergency room 1 week ago with cellulitis, was advised to be admitted by emergency room staff but patient refused to be admitted and went home. Patient has a history of signing out AMA. Patient currently reports he has had poor oral intake for the past few days, chills and fever, urinary incontinence. He denies any chest pain, nausea, vomiting, abdominal pain or diarrhea. 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 07/31/19 In the interim, patient has developed worsening leukocytosis with imaging concerning for pancreatitis, although patient has benign abdomen and lipase is within normal limits. Patient underwent surgical evaluation, scheduled to have MRCP for further evaluation. Patient without any medical complaints today, agitated about his hospitalization, wishes to go home, refusing rehabilitation, refusing to work with physical therapy. He denies any shortness of breath, chest pain, nausea, vomiting, abdominal pain or diarrhea at this time. 08/01/19 Patient decompensated overnight, initially developed acute hypercapnic respir atory acidosis for which she was transferred to PCU, subsequently became hypotensive and transferred to the ICU, received IV fluid bolus followed by levophed infusion. Patient was seen in the morning, clearly altered compared to yesterday, asking me to leave him alone, refusing physical examination or answering any questions. Patient was offered NG tube placement last night prior to decompensation due to large volume of fluid noted in his stomach on MRCP and one episode of emesis, he refused. He was once again offered NG tube placement today, which he is refusing. Patient was reevaluated in the afternoon, remains altered, but more amenable to treatment at this time. He has had minimal urine output since this morning, renal function worsening, discussed case with Dr. Rasmussen who agrees the patient will likely need to go back on CRRT and recommends placement of Denver catheter. Verbal consent obtained from patient's , who as of right now wants all treatment available, Denver catheter was then placed in his right femoral vein using ultrasound guidance and sterile technique. Patient was agitated during the procedure, requiring mild sedation with Ativan 2 mg IV (given separately 1 mg at a time, 10 minutes apart). After the procedure, patient remained somnolent and started to become hypoxemic after 30 minutes, repeat ABG showed worsening respiratory acidosis with profound hypoxemia, likely related to aspiration of gastric contents. Patient was emergently intubated by Dr. Guzman. Patient was reevaluated in the evening, now on CRRT, comfortable with mild sedation on mechanical ventilation, awaiting PRBC transfusion, received IV albumin in the interim, off of Levophed at this time. 08/02/19 Patient has been off of Levophed since 3 AM, started having a leak through the external tubing of Denver catheter around midnight, has been off of CRRT since then. He remains intubated and sedated on Versed, moving all extremities, unable to follow commands at this time. He has had minimal urine output. 08/03/19 Patient seen in the morning, remains intubated, on minimal levophed at this time, sedated on Versed, moving all extremities, does not open eyes or follow commands. He continues to have minimal urine output, permacath was placed yesterday. Patient had bright red blood draining from OG tube overnight, tube has been clamped since. PHYSICAL EXAMINATION: VITAL SIGNS: Please see below. GENERAL: Sedated on mechanical ventilation HEENT: Size 8 ET tube 22 cm at the lip NECK: Supple CARDIOVASCULAR EXAMINATION: S1, S2 RESPIRATORY EXAMINATION: Scattered rhonchi ABDOMINAL EXAMINATION: Soft, nondistended, hypoactive bowel sounds, ostomy with minimal output EXTREMITIES: Diffuse edema SKIN: Scattered erythema NEUROLOGICAL EXAMINATION: Sedated LABORATORY DATA: See below. MICROBIOLOGY: Please see below. ASSESSMENT: 74-year-old male with past medical history of type please mellitus, hypertension, COPD, hypothyroidism and chronic kidney disease was admitted for septic shock, acute respiratory failure and acute renal failure requiring multiple vasopressors CRRT and endotracheal intubation with mechanical ventilation, now returns to the ICU with small bowel obstruction, possible GI bleed, septic shock, acute on chronic renal failure, acute respiratory failure and reintubated. PLAN: 1. Acute hypercapnic and hypoxemic respiratory failure Reintubated, likely due to aspiration of gastric contents and Ativan given for Denver catheter placement. Sedated on Versed drip. 2. Septic shock Unknown etiology, possible GI source, now with aspiration pneumonia. On broad- spectrum coverage with vancomycin, Merrem and micafungin, cultures pending. Hydrocortisone decreased to 50 mg every 8 hours 3. Possible GI bleed. NG tube with bright red blood overnight, H&H is down trending, ordered to receive 1 unit of packed red blood cells today, discussed with Dr. Camejo regarding EGD and he agrees to perform it, continue Protonix 40 mg twice a day, Carafate 1 g every 6 hours, no GI coverage at this time, status post 2 units of packed red blood cells, further transfusion as needed to maintain hemoglobin greater than 8. 4. Acute on chronic kidney disease. Renal function has profoundly worsened, likely due to septic shock, minimal urine output, nephrology was reconsulted, restarted on CRRT. 5. Diabetes mellitus. Hold metformin, sliding still insulin every 6 hours. 6. Hyperthyroidism. Continue propylthiouracil 7. Gout. Hold allopurinol for now DVT prophylaxis: TEDs GI prophylaxis: PPI VS, I&O, 24H, Fishbone Vital Signs/I&O Vital Signs Date Time Temp Pulse Resp B/P (MAP) Pulse Ox O2 Delivery O2 Flow Rate FiO2 08/03/19 16:20 100 28 96 30 08/03/19 15:30 96.3 95/54 Ventilator 08/03/19 07:55 35 I&O- Last 24 Hours up to 6 AM 08/03/19 06:00 Intake Total 2382.0 ml Output Total 335 ml Balance 2047.0 ml Laboratory Data 24H LABS Laboratory Tests 2 08/02/19 17:55: Bedside Glucose (Misc Panel) 196H 08/03/19 00:53: Bedside Glucose (Misc Panel) 318H 08/03/19 05:01: Nucleated Red Blood Cells % (auto) 1.1H, Anion Gap 11, Glomerular Filtration Rate 22.6L, Calcium Level 7.8L, Phosphorus Level 4.7, Magnesium Level 2.2, Albumin 2.5L, Random Vancomycin Level 22.7 08/03/19 05:38: Blood Gas Bicarbonate Standard 22.9, Arterial Blood pH 7.430, Arterial Blood Partial Pressure CO2 34.1L, Arterial Blood Partial Pressure O2 109.2H, Arterial Blood Total CO2 23.2, Arterial Blood HCO3 22.1, Arterial Blood Base Excess -1.8, Arterial Blood Oxygen Saturation 98.0 08/03/19 08:39: Prothrombin Time 22.6H, Prothromb Time International Ratio 2.01, Activated Partial Thromboplast Time 47.9H, Fibrinogen 389 08/03/19 08:43: Methicillin-Resist S.aureus DNA PCR NOT DETECTED 08/03/19 11:35: Bedside Glucose (Misc Panel) 168H CBC/BMP Laboratory Tests 08/03/19 05:01 Microbiology Microbiology 08/01/19 Blood Culture - Preliminary, Resulted No Growth after 48 hours. All Specime... 08/01/19 Blood Culture - Preliminary, Resulted No Growth after 48 hours. All Specime... 08/01/19 Blood Culture - Preliminary, Resulted No Growth after 48 hours. All Specime... 07/26/19 Urine Culture - Final, Complete 07/26/19 Blood Culture - Final, Complete NO GROWTH AFTER 5 DAYS SHARLA LUI MD Aug 03, 2019 17:21
[2019-08-03 18:10] LABS: IONIZED CALCIUM 4.5 MG/DL (4.5-5.3)
[2019-08-03 18:13] LABS: HEMATOCRIT 26.3 % (42.0-52.0); HEMOGLOBIN 8.6 g/dl (13.5-17.5); MEAN CORPUSCULAR HEMOGLOBIN 30.1 pg (27.0-33.0); MEAN CORPUSCULAR HGB CONC 32.7 g/dl (32.0-36.5); RED BLOOD COUNT 2.86 10^6/uL (4.30-6.10); WHITE BLOOD COUNT 14.3 10^3/uL (4.0-10.0)
[2019-08-03 18:40] LABS: CALCIUM LEVEL 8.1 MG/DL (8.8-10.2); MAGNESIUM LEVEL 2.4 MG/DL (1.8-2.4); PHOSPHORUS LEVEL 3.9 MG/DL (2.5-4.9)
[2019-08-03 18:58] LABS: PLATELET COUNT, AUTOMATED 83 10^3/uL (150-450)
[2019-08-03] MEDS ORDERED: CALCIUM GLUCONATE 1,000 MG, VIAL MATE ADAPTER 1 EACH in NS 100 ML IV ONE ×2 (20:00→23:30)
[2019-08-03] MEDS: MICAFUNGIN SODIUM 150 MG in D5W 100 ML IV SCH (20:14)
[2019-08-03] MEDS: NOREPINEPHRINE BITARTRATE 16 MG in D5W 484 ML IV SCH (20:30)
[2019-08-03 23:24] LABS: IONIZED CALCIUM 4.6 MG/DL (4.5-5.3)
[2019-08-04] VITALS (83 sets, daily range): BP systolic 83–156; BP diastolic 36–64; O2SAT 98
[2019-08-04 00:05] LABS: CALCIUM LEVEL 8.4 MG/DL (8.8-10.2); CREATININE FOR GFR 1.58 MG/DL (0.70-1.30); MAGNESIUM LEVEL 2.4 MG/DL (1.8-2.4); PHOSPHORUS LEVEL 3.4 MG/DL (2.5-4.9); POTASSIUM SERUM 4.2 MEQ/L (3.5-5.1)
[2019-08-04] MEDS: HYDROCORTISONE 100 MG/2 ML VIAL (J1720 PER 1) IV SCH ×3 (01:10→17:46)
[2019-08-04] MEDS: IPRATROPIUM 0.5MG/ALBUTEROL 2.5MG INH SOL UD 3ML (DUONEB)(J7620) NEB SCH ×4 (01:12→20:49)
[2019-08-04 05:30] LABS: HEMATOCRIT 28.5 % (42.0-52.0); MEAN CORPUSCULAR HEMOGLOBIN 29.4 pg (27.0-33.0); MEAN CORPUSCULAR HGB CONC 31.6 g/dl (32.0-36.5); MEAN CORPUSCULAR VOLUME 93.1 fl (80.0-96.0); PLATELET COUNT, AUTOMATED 83 10^3/uL (150-450); RED BLOOD COUNT 3.06 10^6/uL (4.30-6.10); WHITE BLOOD COUNT 15.6 10^3/uL (4.0-10.0)
[2019-08-04] MEDS: SUCRALFATE SUSP 1GM/10ML UD PO SCH ×4 (05:30→23:43)
[2019-08-04] MEDS: DIMETHICONE 2% OINTMENT(VANIPLY) 70GM TUBE TOP SCH ×4 (05:31→23:43)
[2019-08-04 05:37] LABS: ABG HCO3 23.6 MEQ/L (22.0-26.0); ABG O2 SATURATION 95.6 % (95.0-99.0); ABG PARTIAL PRESSURE CO2 34.3 mmHg (35.0-45.0); ABG PARTIAL PRESSURE O2 78.5 mmHg (75.0-100.0); ABG STANDARD HCO3 24.5 MEQ/L (22.0-26.0); ABG TOTAL CO2 24.7 MEQ/L (23.0-31.0); ABG pH (ARTERIAL) 7.456 UNITS (7.350-7.450)
[2019-08-04 05:39] LABS: INR 1.52
[2019-08-04 05:40] LABS: PARTIAL THROMBOPLASTIN TIME 37.3 SECONDS (25.0-38.4)
[2019-08-04 05:51] LABS: CALCIUM LEVEL 8.6 MG/DL (8.8-10.2); CREATININE FOR GFR 1.34 MG/DL (0.70-1.30); GLOMERULAR FILTRATION RATE 55.6 (>42); MAGNESIUM LEVEL 2.5 MG/DL (1.8-2.4); PHOSPHORUS LEVEL 2.8 MG/DL (2.5-4.9); POTASSIUM SERUM 4.5 MEQ/L (3.5-5.1)
[2019-08-04] MEDS: HumaLOG INSULIN (NovoLOG) PER UNIT SC SCH ×4 (06:00→23:44)
[2019-08-04] MEDS: MEROPENEM INJ 1 GM in IV 1 EA IV SCH ×2 (08:17→19:25)
--- NOTE | 2019-08-04 08:20 | REP ---
Portable chest x-ray: Single view. History: Respiratory failure. Comparison study: Three August 20, 2019. Findings: EKG monitoring electrodes and oxygen delivery tubing are seen. Endotracheal tube is in good position just below the proximal clavicles. An NG tube enters left upper quadrant. A right internal jugular central venous catheter is seen terminating in the expected location of the superior vena cava. There is some improvement in aeration in the left lower lobe with better visualization of the left hemidiaphragm. Slight blunting of the left lateral pleural angle is seen. Interstitial markings remain diffusely prominent. No focal infiltrate. Electronically Signed by Rodolfo Chester MD 08/04/2019 08:11 A
[2019-08-04] MEDS: CHLORHEXIDINE GLUCONATE 0.12 % 15ML UDC (PERIDEX ORAL RINSE) MT SCH ×2 (09:18→19:59)
[2019-08-04] MEDS: propylthiouraciL 50 MG TAB PO SCH ×2 (09:19→19:58)
[2019-08-04] MEDS: PANTOPRAZOLE 40MG INJ (PROTONIX) (C9113) IV SCH ×2 (09:19→19:58)
[2019-08-04] MEDS: BETAMETHASONE DIP 0.05% OINT 15 GM TOP SCH ×2 (09:20→20:00)
[2019-08-04] MEDS: TRIAMCINOLONE ACET 0.1% OINTMENT 15 GM TOP SCH ×2 (09:20→20:03)
--- NOTE | 2019-08-04 10:19 | IPN ---
DATE: 08/03/2019 The patient overnight had some anemia and he has been treated for the anemia. However, his major issue at this time is that he had some blood in his nasogastric (NG) tube. Given his hypotensive episode and unfortunately looking at his laboratory findings, he has significant anticoagulation on board with an INR of 2.0. He has also had some progressive development of thrombocytopenia, which the combination of the two anticipate is exacerbating hypotension induced probable gastritis. He probably has evidence of severe erosive gastritis if we proceeded with an endoscopy. At this point, I believe they are trying to reverse his anticoagulation. Fortunately, since the labs were done this morning and evaluating him now. his NG tube with irrigation has no significant bloody output and his abdominal distension is getting much better every day. I am still able to reduce his ostomy site each day showing no significant obstruction at that site. IMPRESSION AND PLAN: The patient indeed has an ileus probably associated with his sepsis. I anticipate the bloody NG output is from some element of gastrointestinal (GI) bleed. That seems to be under control at this point and/resolving with the current treatment of proton pump, Carafate and reversal of anticoagulation/liver dysfunction issues. I anticipate with his platelet dysfunction, if that reverses and seems to resolve as well, this issue should resolve. Given his overall presentation, I do feel that he has made some progress from a surgical standpoint. His white count continues to come down nicely. Otherwise if he has some ongoing bleeding from his NG tube, I would recommend proceeding with an endoscopy semi-urgently.
--- NOTE | 2019-08-04 10:23 | IPN ---
DATE: 08/04/2019 The patient's white count is slightly higher today, but also his hematocrit is slightly higher suggesting that he is slightly probably a little more hemoconcentrated, but his white count is trending down compared to what it was beforehand, his international normalized ratio (INR) is also down and his platelet count unfortunately stays at 83,000 at this time. Fortunately reviewing his nasogastric (NG) output and current irrigation/drainage of this is really clear drainage and mostly gastric secretions. Does not appear to be any bloody or hematemesis or coffee-ground in the previously bilious output. Otherwise, his abdomen is becoming less distended each day and his ostomy still is nicely reducible. IMPRESSION AND PLAN: Ileus is still present, but I anticipate it seems to be slowly improving over time as his overall condition improves, I anticipate his ileus will improve as well. His sepsis is of undetermined etiology at this time but will continue following him at this time.
[2019-08-04] MEDS: fentaNYL 100 MCG/2 ML INJECTION (J3010) IV PRN ×3 (10:49→19:25)
[2019-08-04 12:34] LABS: IONIZED CALCIUM 4.6 MG/DL (4.5-5.3)
[2019-08-04 12:59] LABS: BLOOD UREA NITROGEN 15 MG/DL (7-18); CALCIUM LEVEL 8.7 MG/DL (8.8-10.2); CARBON DIOXIDE LEVEL 24 MEQ/L (21-32); CHLORIDE LEVEL 109 MEQ/L (98-107); CREATININE FOR GFR 1.19 MG/DL (0.70-1.30); GLOMERULAR FILTRATION RATE > 60.0 (>42); GLUCOSE, FASTING 157 MG/DL (70-100); PHOSPHORUS LEVEL 2.9 MG/DL (2.5-4.9); POTASSIUM SERUM 4.5 MEQ/L (3.5-5.1); SODIUM LEVEL 143 MEQ/L (136-145)
[2019-08-04] MEDS ORDERED: SODIUM CHLORIDE 0.9% INJ 10 ML SYR IV PRN (13:30)
[2019-08-04] MEDS ORDERED: HEPARIN 1,000 UNITS/ML 10ML VIAL (FOR RADIOLOGY& DIALYSIS ONLY) IV PRN (13:30)
--- NOTE | 2019-08-04 14:34 | CCN ---
DATE: 08/04/2019 The patient was seen and examined this morning during bedside rounds. The patient was noted to have less output from his orogastric (OG) tube. Has not had any significant coffee-ground output or bright red blood. He has not had any output in his colostomy bag. The patient is still on Versed but has been weaned down to 1 mg an hour currently. He is still on Levophed but only at 1 mcg per minute. The patient was on continuous veno-venous hemodialysis (CVVHD) yesterday but he did not have any significant fluid removal. PHYSICAL EXAMINATION: Temperature 97.9, pulse 99, respirations 18, blood pressure 94/52, O2 sat 98% on 30% FioO2, input 1.2 liters out 140 mL. General: Patient is intubated and sedated. He is responsive to painful stimuli and intermittently agitated but not following commands appropriately. HEENT: Normocephalic, atraumatic. Pupils are equal, react to light bilaterally. There are moist mucous membranes noted. NECK: Supple. Trachea is midline. There is no palpable cervical adenopathy. There is elevated jugular venous pulse (JVP). CARDIAC: Tachycardic: Regular S1,S2 without any appreciable murmurs. Point of maximal impulse (PMI) is displaced laterally. PULMONARY: Coarse ventilated breath sounds bilaterally with some diminished breath sounds in the bases. There is no wheezing or rhonchi. ABDOMEN: Soft, mildly distended. The patient has well-healed surgical incision and a colostomy in place with a peristomal hernia. EXTREMITIES: There is a sacral pitting edema noted. SKIN: There is a diffuse exfoliative rash with some erythema of the skin which appears unchanged. LABS: WBC 15.6, hemoglobin 9.0, platelets 83. Chemistry: Sodium is 144, potassium is 4.5, chloride is 111, bicarb is 24, BUN 19, creatinine is 1.34, glucose is 155. INR 1.52, PTT 37.3. ABG: pH of 7.456, pCO2 of 34.3, pO2 of 78.5. IMAGING: Chest x-ray shows endotracheal (ET) tube in good position. There is an orogastric (OG) tube in place coursing below the diaphragm. There is right subclavian hemodialysis catheter placed. There is a left internal jugular (IJ) triple lumen crossing over the midline. There are increased interstitial markings noted bilaterally with pulmonary vascular congestion. There is some improvement in the consolidation in the left lower lobe with some blunting in the left costophrenic angle. ASSESSMENT/PLAN: Mr. Higgins is a 74 old male with history of diabetes, hypertension, chronic obstructive pulmonary disease (COPD), chronic kidney disease (CKD) who has had a prolonged and complicated hospitalization. The patient had been intubated on his initial admission for acute respiratory failure with septic shock. He was extubated and weaned off of pressors and downgraded to the floors. During his intensive care unit (ICU) stay he was also found to have acute on chronic renal failure requiring CVVHD. The patient was then noted to have increasing abdominal distension secondary to ileus. He was also noted to have worsening leukocytosis and hypotension requiring initiation of Levophed for vasopressor support. The patient was intubated again for acute respiratory failure possibly secondary to some aspiration as well as from worsening respiratory acidosis. The patient was also noted to have possible GI bleed with dark, coffee-ground emesis from his OG tube which was also suctioned out of his endotracheal tube suggestive of some aspiration of gastric contents. The patient was also restarted on CVVHD for acute worsening of his renal failure and diminished urine output. 1. Acute respiratory failure in the setting of shock secondary to acute GI bleed as well as possible sepsis. There is also concern for aspiration pneumonia and some evidence of pulmonary edema as well. - Continue the patient on mechanical ventilation on volume control with settings of 420/18/ 35 and 5. - Continue daily ABGs and chest x-rays while intubated. - Continue vent bundle care with head of bed elevation and chlorhexidine mouthwash. - Continue with Versed for sedation. Will also start fentanyl as needed for pain control. 2. Sepsis likely secondary to GI source initially with possible also aspiration pneumonia secondary to his acute ileus. - The patient was on broad-spectrum antibiotics with vancomycin and meropenem. His vancomycin was discontinued as his Staphylococcus aureus (MRSA) screen was negative. He also received some doses of micafungin which were then discontinued. His beta D glucan is still pending. - Continue meropenem for now and followup results of beta D glucan. If he has increasing leukocytosis may need to re-add the antifungal agent. He was on total parenteral nutrition (TPN) at some point via peripherally inserted central catheter (PICC) line during his hospitalization. He also has been on steroids at somewhat high doses for the past month with his hospitalization and he is at risk for fungal infection. - Put continue with hydrocortisone. Will continue weaning him from 50 mg every 8 to 50 mg every 12h and wean him down to Solu-Medrol as tolerated. 3. Acute renal failure being managed by nephrology. The patient was restarted on CVVHD via Perma-Cath which was recently placed. - The patient is on very low dose of Levophed today has been weaned down from 1 mcg per minute to 0.5 mcg minute. Will attempt to have some gentle fluid removal as tolerated with his CVVHD. 4. Acute GI bleed. The patient was last transfused a unit of packed red blood cells (PRBC) yesterday and hemoglobin appears to be holding stable this morning. He also has not had any further output from his OG tube and his abdominal distension appears to be improving. - Appreciate surgery consult and recommendations. I will continue monitor his hemoglobin and hematocrit and his platelets. He does have thrombocytopenia been appears to be stable for now. - The patient's fibrinogen was within normal limits and he does not have evidence of DIC. - The patient's INR improved with vitamin K administration yesterday. Suspect he has some vitamin K deficiency with his prolonged hospitalization with prolonged episodes of poor oral intake. 5. Deep venous thrombosis (DVT) prophylaxis. Thromboembolic deterrent stockings (TEDS) and sequential compression device. GI prophylaxis. Protonix. CODE STATUS: FULL CODE. Total critical care time spent not including procedures approximately 45 minutes. MTDD
[2019-08-04] MEDS: MIDAZOLAM HCL 100 MG in D5W 80 ML IV SCH (14:40)
--- NOTE | 2019-08-04 17:05 | IPN ---
DATE: 08/04/2019 SUBJECTIVE: Patient was seen and examined at the bedside today morning in the intensive care unit (ICU). Last 24-hour intake and output sheet was noted. He is tolerating the continuous venovenous hemodiafiltration (CVVHDF) now and since starting the CVVHDF yesterday, he is in -194 mL fluid balance. He is still requiring a very small dose of Levophed at 0.5 mcg. He is still intubated and sedated and he continues to be oliguric and there are no signs of renal recovery so far. He is unable to provide any review of systems because he is intubated and sedated. OBJECTIVE: VITAL SIGNS: Temperature is 97.4 degrees Fahrenheit, blood pressure 98/54, pulse is 105, respiratory rate of 80, saturating 99% on vent with 30% FiO2. INTAKE AND OUTPUT: Urine output recorded is only 49 mL so far. Weight in the bed scale is 84.7 kg. PHYSICAL EXAMINATION: GENERAL: Patient is intubated, sedated. HEAD AND NECK EXAM: Eyes are closed. Pupils are equally round and reactive to light. Patient has an endotracheal tube and orogastric tube. Neck is supple. There is no jugular venous distention (JVD). He has a right internal jugular (IJ) Trialysis catheter. CARDIOVASCULAR: S1, S2. Regular rate. 1+ edema in the thighs only. RESPIRATORY: Decreased breath sounds at the bases, otherwise no active rales or rhonchi. ABDOMEN: Soft. Obese. Positive bowel sounds. Tender to deep palpation. He has an ostomy in the left side with the parastomal hernia. MUSCULOSKELETAL: No clubbing or cyanosis. He has 1+ edema of the thighs CENTRAL NERVOUS SYSTEM (GEOTECHNICAL INTERN): Patient is intubated, sedated and he has movement of all four extremities on painful stimuli. LABORATORY REVIEW: Complete blood count (CBC) showed a WBC of 15.6, hemoglobin is 9, platelets are 83. Basic metabolic panel (BMP) showed sodium 143, potassium 4.5, chloride 109, bicarbonate 24, BUN 15, creatinine is 1.1, calcium 8.7, ionized calcium 4.6, phosphorus is 2.9, magnesium is 3. IMAGING: A chest x-ray was done today morning which showed interstitial markings remained diffusely prominent. No focal infiltrate. CURRENT PATIENT MEDICATIONS: Patient's medications were all reviewed by me. He continues to be on Levophed at 0.8 mcg. He continues to be on my micafungin. Hydrocortisone dose remains at 50 mg intravenous (IV) every 8 hours. No other change in the medications today as compared with yesterday. ASSESSMENT AND PLAN: 1. Acute renal failure. Patient is hypotensive and ventilated at this time. He is currently on CVVHDF. I will continue the CVVHDF for next 24 hours as well. I will try to remove more fluid according to my parameters because of persistent prominent interstitial markings of the chest x-ray. 2. Sepsis secondary to pneumonia and ileus. Patient is on just 0.5 mcg of Levophed at this time. Continue the antibiotics as per pulmonary team. No need of IV fluids at this time. 3. Small-bowel obstruction. Patient was seen by surgical service. No surgical intervention is indicated at this time. Clinically he is slowly improving. 4. Anemia secondary to gastrointestinal (GI) bleed. Transfuse as needed for hemoglobin less than 8. 5. Chronic steroid dependence and shock. Patient is currently on stress dose steroids, hydrocortisone 50 mg IV every 8 hours. 6. Vent dependent respiratory failure. Vent management is as per pulmonary team. X-ray shows persistent interstitial markings. More fluid removal will be done in the next 24 hours. Total critical care time spent in the management of this patient today morning in the ICU is 50 minutes. That does not include any procedures.
[2019-08-04 17:45] LABS: IONIZED CALCIUM 4.7 MG/DL (4.5-5.3)
[2019-08-04 17:51] LABS: HEMATOCRIT 27.1 % (42.0-52.0); HEMOGLOBIN 8.5 g/dl (13.5-17.5); MEAN CORPUSCULAR HEMOGLOBIN 29.4 pg (27.0-33.0); MEAN CORPUSCULAR HGB CONC 31.4 g/dl (32.0-36.5); MEAN CORPUSCULAR VOLUME 93.8 fl (80.0-96.0); RED BLOOD COUNT 2.89 10^6/uL (4.30-6.10); WHITE BLOOD COUNT 12.4 10^3/uL (4.0-10.0)
[2019-08-04 17:55] LABS: PLATELET COUNT, AUTOMATED 77 10^3/uL (150-450)
[2019-08-04 18:10] LABS: BLOOD UREA NITROGEN 12 MG/DL (7-18); CALCIUM LEVEL 8.1 MG/DL (8.8-10.2); CARBON DIOXIDE LEVEL 22 MEQ/L (21-32); CHLORIDE LEVEL 110 MEQ/L (98-107); CREATININE FOR GFR 0.99 MG/DL (0.70-1.30); GLOMERULAR FILTRATION RATE > 60.0 (>42); GLUCOSE, FASTING 151 MG/DL (70-100); MAGNESIUM LEVEL 2.5 MG/DL (1.8-2.4); PHOSPHORUS LEVEL 2.6 MG/DL (2.5-4.9); POTASSIUM SERUM 4.3 MEQ/L (3.5-5.1); SODIUM LEVEL 143 MEQ/L (136-145)
[2019-08-04] MEDS: MICAFUNGIN SODIUM 150 MG in D5W 100 ML IV SCH (20:00)
[2019-08-04] MEDS: LACRILUBE (AKWA TEARS) OPHTH OINT 3.5 GM OD PRN (20:02)
[2019-08-04] MEDS: MIDAZOLAM INJ 2 MG/2 ML VIAL (J2250) IV PRN ×2 (20:15→20:57)
[2019-08-04] MEDS: NOREPINEPHRINE BITARTRATE 16 MG in D5W 484 ML IV SCH (21:00)
[2019-08-04] MEDS ORDERED: PROPOFOL 1,000 MG/100 ML VIAL As Ordered ONE (21:49)
[2019-08-04] MEDS: propofoL 1,000 MG in IV 1 EA IV SCH (23:00)
[2019-08-05] VITALS (27 sets, daily range): BP systolic 87–140; BP diastolic 43–64; O2SAT 97–99
[2019-08-05 00:06] LABS: IONIZED CALCIUM 4.7 MG/DL (4.5-5.3)
[2019-08-05 00:33] LABS: BLOOD UREA NITROGEN 12 MG/DL (7-18); CALCIUM LEVEL 8.5 MG/DL (8.8-10.2); CARBON DIOXIDE LEVEL 24 MEQ/L (21-32); CHLORIDE LEVEL 108 MEQ/L (98-107); CREATININE FOR GFR 0.93 MG/DL (0.70-1.30); GLOMERULAR FILTRATION RATE > 60.0 (>42); GLUCOSE, FASTING 183 MG/DL (70-100); MAGNESIUM LEVEL 2.5 MG/DL (1.8-2.4); PHOSPHORUS LEVEL 2.4 MG/DL (2.5-4.9); POTASSIUM SERUM 4.2 MEQ/L (3.5-5.1); SODIUM LEVEL 142 MEQ/L (136-145)
[2019-08-05] MEDS: IPRATROPIUM 0.5MG/ALBUTEROL 2.5MG INH SOL UD 3ML (DUONEB)(J7620) NEB SCH ×4 (01:14→19:36)
[2019-08-05] MEDS: HYDROCORTISONE 100 MG/2 ML VIAL (J1720 PER 1) IV SCH ×3 (01:45→17:20)
[2019-08-05] MEDS ORDERED: SODIUM PHOSPHATE INJ 15 MMOL in D5W 250 ML IV ONE (02:00)
[2019-08-05] MEDS: propofoL 1,000 MG in IV 1 EA IV SCH ×3 (03:00→20:51)
[2019-08-05 06:05] LABS: ABG BASE EXCESS 0.6 (-2.0-2.0); ABG HCO3 25.1 MEQ/L (22.0-26.0); ABG O2 SATURATION 97.7 % (95.0-99.0); ABG PARTIAL PRESSURE CO2 39.9 mmHg (35.0-45.0); ABG PARTIAL PRESSURE O2 104.5 mmHg (75.0-100.0); ABG TOTAL CO2 26.4 MEQ/L (23.0-31.0); ABG pH (ARTERIAL) 7.417 UNITS (7.350-7.450)
[2019-08-05] MEDS: DIMETHICONE 2% OINTMENT(VANIPLY) 70GM TUBE TOP SCH ×4 (06:10→23:43)
[2019-08-05] MEDS: SUCRALFATE SUSP 1GM/10ML UD PO SCH ×4 (06:10→23:42)
[2019-08-05 06:16] LABS: HEMATOCRIT 26.1 % (42.0-52.0); HEMOGLOBIN 8.2 g/dl (13.5-17.5); MEAN CORPUSCULAR HEMOGLOBIN 29.7 pg (27.0-33.0); MEAN CORPUSCULAR HGB CONC 31.4 g/dl (32.0-36.5); MEAN CORPUSCULAR VOLUME 94.6 fl (80.0-96.0); RED BLOOD COUNT 2.76 10^6/uL (4.30-6.10); WHITE BLOOD COUNT 8.9 10^3/uL (4.0-10.0)
[2019-08-05 06:20] LABS: PLATELET COUNT, AUTOMATED 69 10^3/uL (150-450)
[2019-08-05 06:47] LABS: BLOOD UREA NITROGEN 10 MG/DL (7-18); CALCIUM LEVEL 8.3 MG/DL (8.8-10.2); CARBON DIOXIDE LEVEL 27 MEQ/L (21-32); CHLORIDE LEVEL 107 MEQ/L (98-107); CREATININE FOR GFR 0.82 MG/DL (0.70-1.30); GLOMERULAR FILTRATION RATE > 60.0 (>42); GLUCOSE, FASTING 174 MG/DL (70-100); MAGNESIUM LEVEL 2.6 MG/DL (1.8-2.4); PHOSPHORUS LEVEL 3.2 MG/DL (2.5-4.9); POTASSIUM SERUM 4.2 MEQ/L (3.5-5.1); SODIUM LEVEL 141 MEQ/L (136-145)
[2019-08-05] MEDS: HumaLOG INSULIN (NovoLOG) PER UNIT SC SCH ×4 (06:49→23:42)
[2019-08-05] MEDS: MEROPENEM INJ 1 GM in IV 1 EA IV SCH ×2 (07:43→19:52)
[2019-08-05] MEDS: CHLORHEXIDINE GLUCONATE 0.12 % 15ML UDC (PERIDEX ORAL RINSE) MT SCH ×2 (08:20→19:53)
[2019-08-05] MEDS: VANICREAM MOISTURIZING SKIN CREAM 113GM TUBE TOP SCH ×2 (08:21→19:53)
[2019-08-05] MEDS: propylthiouraciL 50 MG TAB PO SCH ×2 (08:21→19:52)
[2019-08-05] MEDS: PANTOPRAZOLE 40MG INJ (PROTONIX) (C9113) IV SCH ×2 (08:21→19:52)
[2019-08-05] MEDS: TRIAMCINOLONE ACET 0.1% OINTMENT 15 GM TOP SCH ×2 (08:22→19:53)
--- NOTE | 2019-08-05 08:25 | REP ---
Portable chest x-ray: Single view. History: Respiratory failure. Comparison chest x-ray: August 04, 2019. Findings: Nasogastric tube is seen in the gastric fundus. Endotracheal tube is seen to be in good position just above the transverse aorta. A left internal jugular central venous line terminates in the region of the brachiocephalic vein to the left of midline. A right internal jugular central venous tunnel catheter is seen in place in the expected location of the superior vena cava. Oxygen delivery tubing and EKG electrodes are seen. There is blunting of the left lateral pleural angle unchanged. Diffusely prominent interstitial markings persists. There is atelectasis or infiltrate behind the left heart in the left base. This is a little more opaque. This is improved however when compared with the August 03, 2019 study. Electronically Signed by Rodolfo Chester MD 08/05/2019 08:17 A
[2019-08-05] MEDS ORDERED: VANICREAM MOISTURIZING SKIN CREAM 113GM TUBE TOP SCH (09:00)
[2019-08-05] MEDS ORDERED: DOCUSATE SOD LIQ 100MG/10ML UDC PO ONE (12:15)
[2019-08-05 17:48] LABS: IONIZED CALCIUM 4.8 MG/DL (4.5-5.3)
[2019-08-05 18:03] LABS: HEMATOCRIT 27.7 % (42.0-52.0); HEMOGLOBIN 8.7 g/dl (13.5-17.5); MEAN CORPUSCULAR HEMOGLOBIN 29.8 pg (27.0-33.0); MEAN CORPUSCULAR HGB CONC 31.4 g/dl (32.0-36.5); MEAN CORPUSCULAR VOLUME 94.9 fl (80.0-96.0); RED BLOOD COUNT 2.92 10^6/uL (4.30-6.10); WHITE BLOOD COUNT 10.7 10^3/uL (4.0-10.0)
[2019-08-05 18:07] LABS: PLATELET COUNT, AUTOMATED 73 10^3/uL (150-450)
[2019-08-05 18:19] LABS: BLOOD UREA NITROGEN 9 MG/DL (7-18); CALCIUM LEVEL 8.7 MG/DL (8.8-10.2); CARBON DIOXIDE LEVEL 25 MEQ/L (21-32); CHLORIDE LEVEL 107 MEQ/L (98-107); CREATININE FOR GFR 0.99 MG/DL (0.70-1.30); GLOMERULAR FILTRATION RATE > 60.0 (>42); GLUCOSE, FASTING 146 MG/DL (70-100); MAGNESIUM LEVEL 2.6 MG/DL (1.8-2.4); PHOSPHORUS LEVEL 2.9 MG/DL (2.5-4.9); POTASSIUM SERUM 4.4 MEQ/L (3.5-5.1); SODIUM LEVEL 142 MEQ/L (136-145)
--- NOTE | 2019-08-05 18:35 | IPNPDOC ---
Date Seen The patient was seen on 08/05/19. Progress Note HISTORY OF PRESENT ILLNESS: 74-year-old male with past medical history of diabetes mellitus, hypertension, COPD, hyperthyroidism, chronic kidney disease presents to the emergency room with shaking of his arms and malaise. Patient was admitted 1 month ago for right hip fracture status post mechanical fall, presented to emergency room 1 week ago with cellulitis, was advised to be admitted by emergency room staff but patient refused to be admitted and went home. Patient has a history of signing out AMA. Patient currently reports he has had poor oral intake for the past few days, chills and fever, urinary incontinence. He denies any chest pain, nausea, vomiting, abdominal pain or diarrhea. 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 07/31/19 In the interim, patient has developed worsening leukocytosis with imaging concerning for pancreatitis, although patient has benign abdomen and lipase is within normal limits. Patient underwent surgical evaluation, scheduled to have MRCP for further evaluation. Patient without any medical complaints today, agitated about his hospitalization, wishes to go home, refusing rehabilitation, refusing to work with physical therapy. He denies any shortness of breath, chest pain, nausea, vomiting, abdominal pain or diarrhea at this time. 08/01/19 Patient decompensated overnight, initially developed acute hypercapnic respir atory acidosis for which she was transferred to PCU, subsequently became hypotensive and transferred to the ICU, received IV fluid bolus followed by levophed infusion. Patient was seen in the morning, clearly altered compared to yesterday, asking me to leave him alone, refusing physical examination or answering any questions. Patient was offered NG tube placement last night prior to decompensation due to large volume of fluid noted in his stomach on MRCP and one episode of emesis, he refused. He was once again offered NG tube placement today, which he is refusing. Patient was reevaluated in the afternoon, remains altered, but more amenable to treatment at this time. He has had minimal urine output since this morning, renal function worsening, discussed case with Dr. Rasmussen who agrees the patient will likely need to go back on CRRT and recommends placement of Denver catheter. Verbal consent obtained from patient's , who as of right now wants all treatment available, Denver catheter was then placed in his right femoral vein using ultrasound guidance and sterile technique. Patient was agitated during the procedure, requiring mild sedation with Ativan 2 mg IV (given separately 1 mg at a time, 10 minutes apart). After the procedure, patient remained somnolent and started to become hypoxemic after 30 minutes, repeat ABG showed worsening respiratory acidosis with profound hypoxemia, likely related to aspiration of gastric contents. Patient was emergently intubated by Dr. Guzman. Patient was reevaluated in the evening, now on CRRT, comfortable with mild sedation on mechanical ventilation, awaiting PRBC transfusion, received IV albumin in the interim, off of Levophed at this time. 08/02/19 Patient has been off of Levophed since 3 AM, started having a leak through the external tubing of Denver catheter around midnight, has been off of CRRT since then. He remains intubated and sedated on Versed, moving all extremities, unable to follow commands at this time. He has had minimal urine output. 08/03/19 Patient seen in the morning, remains intubated, on minimal levophed at this time, sedated on Versed, moving all extremities, does not open eyes or follow commands. He continues to have minimal urine output, permacath was placed yesterday. Patient had bright red blood draining from OG tube overnight, tube has been clamped since. 08/05/19 Patient seen in the morning, sedated with Versed, no longer requiring vasopressors, remains on CRRT. PHYSICAL EXAMINATION: VITAL SIGNS: Please see below. GENERAL: Sedated on mechanical ventilation HEENT: Size 8 ET tube 22 cm at the lip NECK: Supple CARDIOVASCULAR EXAMINATION: S1, S2 RESPIRATORY EXAMINATION: Scattered rhonchi ABDOMINAL EXAMINATION: Soft, nondistended, hypoactive bowel sounds, ostomy output, increasing EXTREMITIES: Diffuse edema SKIN: Scattered erythema NEUROLOGICAL EXAMINATION: Sedated LABORATORY DATA: See below. MICROBIOLOGY: Please see below. ASSESSMENT: 74-year-old male with past medical history of type please mellitus, hypertension, COPD, hypothyroidism and chronic kidney disease was admitted for septic shock, acute respiratory failure and acute renal failure requiring multiple vasopressors CRRT and endotracheal intubation with mechanical ventilation, now returns to the ICU with small bowel obstruction, possible GI bleed, septic shock, acute on chronic renal failure, acute respiratory failure and reintubated. PLAN: 1. Acute hypercapnic and hypoxemic respiratory failure Reintubated, likely due to aspiration of gastric contents and Ativan given for Denver catheter placement. Sedated on Versed drip. 2. Septic shock Unknown etiology, possible GI source, now with aspiration pneumonia. On broad- spectrum coverage with Merrem and micafungin, [id number] levels elevated, cultures negative. Hydrocortisone decreased to 50 mg every 8 hours 3. Possible GI bleed. status post 3 unit of packed red blood cells total, H&H has since been stable, no longer having any output from NG tube, no immediate plan for EGD, continue Protonix 40 mg twice a day, Carafate 1 g every 6 hours, further transfusion as needed to maintain hemoglobin greater than 8. 4. Acute on chronic kidney disease. Renal function has profoundly worsened, likely due to septic shock, minimal urine output, nephrology was reconsulted, restarted on CRRT. 5. Diabetes mellitus. Hold metformin, sliding still insulin every 6 hours. 6. Hyperthyroidism. Continue propylthiouracil 7. Gout. Hold allopurinol for now DVT prophylaxis: TEDs GI prophylaxis: PPI VS, I&O, 24H, Fishbone Vital Signs/I&O Vital Signs Date Time Temp Pulse Resp B/P (MAP) Pulse Ox O2 Delivery O2 Flow Rate FiO2 08/05/19 16:00 30 08/05/19 16:00 97.0 111 19 104/53 (70) 97 Ventilator 08/03/19 07:55 35 I&O- Last 24 Hours up to 6 AM 08/05/19 06:00 Intake Total 824.6 ml Output Total 1196 ml Balance -371.4 ml Laboratory Data 24H LABS Laboratory Tests 2 08/04/19 23:35: Bedside Glucose (Misc Panel) 191H 08/04/19 23:56: Anion Gap 10, Glomerular Filtration Rate > 60.0, Calcium Level 8.5L, Whole Blood Ionized Calcium 4.7, Phosphorus Level 2.4L, Magnesium Level 2.5H 08/05/19 05:48: Blood Gas Bicarbonate Standard 25.0, Arterial Blood pH 7.417, Arterial Blood Partial Pressure CO2 39.9, Arterial Blood Partial Pressure O2 104.5H, Arterial Blood Total CO2 26.4, Arterial Blood HCO3 25.1, Arterial Blood Base Excess 0.6, Arterial Blood Oxygen Saturation 97.7 08/05/19 05:50: Anion Gap 7L, Glomerular Filtration Rate > 60.0, Calcium Level 8.3L, Whole Blood Ionized Calcium 4.6, Phosphorus Level 3.2#, Magnesium Level 2.6H, Nucleated Red Blood Cells % (auto) 1.8H, Immature Platelet Fraction 14.0H, Activated Partial Thromboplast Time 39.4H 08/05/19 11:39: Bedside Glucose (Misc Panel) 125H 08/05/19 17:41: Nucleated Red Blood Cells % (auto) 3.2H, Activated Partial Thromboplast Time 33.1, Whole Blood Ionized Calcium 4.8 08/05/19 17:44: Bedside Glucose (Misc Panel) 140H CBC/BMP Laboratory Tests 08/04/19 23:56 08/05/19 05:50 08/05/19 17:41 Microbiology Microbiology 08/01/19 Blood Culture - Preliminary, Resulted No Growth after 72 hours. All specime... 08/01/19 Blood Culture - Preliminary, Resulted No Growth after 72 hours. All specime... 08/01/19 Blood Culture - Preliminary, Resulted No Growth after 72 hours. All specime... 07/26/19 Urine Culture - Final, Complete 07/26/19 Blood Culture - Final, Complete NO GROWTH AFTER 5 DAYS SHARLA LUI MD Aug 05, 2019 18:35
[2019-08-05] MEDS: DOCUSATE SOD LIQ 100MG/10ML UDC GT SCH (19:52)
[2019-08-05] MEDS: MICAFUNGIN SODIUM 150 MG in D5W 100 ML IV SCH (19:52)
[2019-08-05] MEDS: dexmedeTOMidine 200 MCG in IV 1 EA IV SCH (22:30)
[2019-08-06] VITALS (27 sets, daily range): BP systolic 84–151; BP diastolic 46–67; O2SAT 97
[2019-08-06] MEDS: IPRATROPIUM 0.5MG/ALBUTEROL 2.5MG INH SOL UD 3ML (DUONEB)(J7620) NEB SCH ×4 (01:12→19:56)
[2019-08-06] MEDS: HYDROCORTISONE 100 MG/2 ML VIAL (J1720 PER 1) IV SCH ×3 (02:05→18:10)
--- NOTE | 2019-08-06 05:41 | CCN ---
DATE: 08/05/2019 HISTORY: The patient was seen and examined this morning during bedside rounds. The patient was noted to have some mild output in his ostomy bag overnight as well as a small bowel movement. He has not had any significant output from his orogastric (OG) tube. The patient was also able to be weaned off of Levophed and has been continued on continuous veno-venous hemodialysis (CVVHD) which he has been tolerating with his blood pressure with some gentle fluid removal. Patient noted overnight to be hypothermic and he was placed on a warming blanket. PHYSICAL EXAMINATION: Vital signs: Temperature 92.7, pulse 82, respirations 21, blood pressure was 107/753, O2 sat 98% on 30% FiO2, ins 668, outs 534. General: Patient is intubated and sedated. He is responsive to painful stimuli and intermittently agitated but not following commands properly. HEENT: Normocephalic, atraumatic. Pupils are equal and reactive to light bilaterally. Moist mucous membranes. There is some dried blood in the oropharynx. Neck: Supple. Trachea is midline. There is no palpable cervical adenopathy. There is elevated jugular venous pulse (JVP). Cardiac: Regular rate and rhythm, normal S1-S2 without appreciable murmurs. Point of maximal impulse (PMI) is displaced laterally. Pulmonary: Coarse ventilated breath sounds bilaterally with some decreased breath sounds at the bases. There is no significant wheezing or rhonchi. His abdomen is soft, nontender, appears improved in distension. He has a well-healed surgical incision and a colostomy in place with a parastomal hernia. Extremities: There is mild sacral pitting edema noted. Skin: He has a diffuse exfoliative rash with some erythema which appears unchanged. LABORATORY DATA: WBC 8.9, hemoglobin 8.2, platelets of 69. Chemistries: Sodium 141, potassium 4.2, chloride is 107, bicarb 27, BUN is 10, creatinine 0.82, glucose 174. Arterial blood gas (ABG): pH 7.417, pCO2 of 39.9, pO2 104.5. PTT 39.4. Beta d-glucan 220. IMAGING STUDIES: Chest x-ray shows endotracheal (ET) tube an OG tube in good position. There is a left internal jugular (IJ) triple lumen catheter with the tip in the brachiocephalic vein. The right IJ hemodialysis catheter is in good position. There are prominent interstitial markings which is unchanged. There is a left base infiltrate and some blunting in the left costophrenic angle. ASSESSMENT AND PLAN: Mr. Higgins is a 74 old male with history of diabetes, hypertension, chronic pulmonary obstructive disease (COPD) , chronic kidney disease (CKD) who has had a prolonged and complicated hospitalization. The patient was intubated on his initial admission for acute respiratory failure with septic shock. He was then extubated and weaned off of pressors and downgraded to the medical floor. On the floor he was noted to have increasing abdominal distension secondary to ileus as well as increasing leukocytosis and hypotension requiring initiation of Levophed for vasopressor support. The patient was intubated again for acute respiratory failure possibly secondary to aspiration, as well as from worsening respiratory acidosis. The patient was also found to have worsening renal failure and required initiation again of dialysis which he was on previously when he was in the intensive care unit (ICU) during his first earlier admission. The patient was also found to have possible upper GI bleed as he had dark coffee-ground emesis from his orogastric (OG) tube. Surgery was on board and he was managed conservatively 1. Acute respiratory failure in the setting of shock secondary to acute GI bleed as well as possible sepsis. There is also concern for aspiration pneumonia and some evidence of pulmonary edema as well on his prior x-ray. - Continue the patient on mechanical ventilation on volume control with settings of 420/ 18/35 and 5. - Continue with daily arterial blood gases (ABGs) and chest pain while intubated. - Continue vent bundle care with head of bed elevation and chlorhexidine mouthwash. - The patient was changed from Versed to Propofol for sedation. He was also started on fentanyl as needed for pain control. Will continue with Propofol for sedation but will add Precedex later this evening to help with his potential weaning trial in the morning as the will be placed on a ventilator weaning trial and extubated if tolerated. In the past he has had issues with weaning trials due to agitation when off of sedation. 2. Sepsis likely secondary to GI source; initially was also possible aspiration pneumonia secondary to his acute ileus. - The patient was on broad-spectrum antibiotics with vancomycin and meropenem. The vancomycin was discontinued as his MRSA screen was negative. The patient's beta d-glucan is elevated which you can sometimes see falsely elevated due to antibiotics such as meropenem. He does have risk however for fungal infection however as he did receive total parenteral nutrition (TPN) at some point, as well as being on high doses of steroids during his prolonged hospitalization. Patient has been continued on micafungin and meropenem. - Continue with hydrocortisone. Will continue with 50 mg every 12 hours and wean him down as tolerated. 3. Acute renal failure being managed by nephrology. The patient was started on continue veno-venous dialysis (CVVHD) via a Perma-Cath. His renal function has improved and the patient's blood pressure has also improved. Will continue to attempt some gentle fluid removal today with his CVVHD and if needing further dialysis given the improvement in blood pressure he may be able to tolerate regular hemodialysis (HD). 4. Acute gastrointestinal (GI) bleed. The patient has not had any further coffee-ground emesis from his OG tube in his hemoglobin appears to be stable. - Continue monitoring his hemoglobin and hematocrit (H H) and transfuse as needed. - The patient does continue to have some worsening thrombocytopenia; some of which may be in the setting of his CVVHD and sepsis. Will continue to monitor. As he does not have appear to have worsening bleeding will hold off on transfusing platelets for now. - The patient's INR improved with vitamin K administration. He likely has a deficiency of vitamin K from poor oral intake with his prolonged hospitalization. Deep venous thrombosis (DVT) prophylaxis. Thromboembolic deterrent stockings (TEDs) and sequentials GI prophylaxis: Protonix. Code status: Full code. Total critical care time spent including procedures approximately 45 minutes MTDD
[2019-08-06] MEDS: SUCRALFATE SUSP 1GM/10ML UD PO SCH ×3 (05:45→18:10)
[2019-08-06] MEDS: DIMETHICONE 2% OINTMENT(VANIPLY) 70GM TUBE TOP SCH ×3 (05:47→18:11)
[2019-08-06 05:48] LABS: ABG BASE EXCESS 0.8 (-2.0-2.0); ABG HCO3 24.1 MEQ/L (22.0-26.0); ABG O2 SATURATION 99.3 % (95.0-99.0); ABG PARTIAL PRESSURE CO2 33.4 mmHg (35.0-45.0); ABG PARTIAL PRESSURE O2 174.8 mmHg (75.0-100.0); ABG STANDARD HCO3 25.2 MEQ/L (22.0-26.0); ABG TOTAL CO2 25.1 MEQ/L (23.0-31.0); ABG pH (ARTERIAL) 7.476 UNITS (7.350-7.450)
[2019-08-06 05:51] LABS: IONIZED CALCIUM 4.8 MG/DL (4.5-5.3)
[2019-08-06 05:52] LABS: HEMATOCRIT 27.4 % (42.0-52.0); HEMOGLOBIN 8.4 g/dl (13.5-17.5); MEAN CORPUSCULAR HEMOGLOBIN 29.3 pg (27.0-33.0); MEAN CORPUSCULAR HGB CONC 30.7 g/dl (32.0-36.5); MEAN CORPUSCULAR VOLUME 95.5 fl (80.0-96.0); RED BLOOD COUNT 2.87 10^6/uL (4.30-6.10); WHITE BLOOD COUNT 11.3 10^3/uL (4.0-10.0)
[2019-08-06 05:54] LABS: PLATELET COUNT, AUTOMATED 68 10^3/uL (150-450)
[2019-08-06 06:22] LABS: BLOOD UREA NITROGEN 10 MG/DL (7-18); CALCIUM LEVEL 8.6 MG/DL (8.8-10.2); CARBON DIOXIDE LEVEL 27 MEQ/L (21-32); CHLORIDE LEVEL 107 MEQ/L (98-107); CREATININE FOR GFR 0.96 MG/DL (0.70-1.30); GLOMERULAR FILTRATION RATE > 60.0 (>42); GLUCOSE, FASTING 146 MG/DL (70-100); MAGNESIUM LEVEL 2.7 MG/DL (1.8-2.4); PHOSPHORUS LEVEL 2.2 MG/DL (2.5-4.9); POTASSIUM SERUM 4.5 MEQ/L (3.5-5.1); SODIUM LEVEL 141 MEQ/L (136-145)
[2019-08-06] MEDS: HumaLOG INSULIN (NovoLOG) PER UNIT SC SCH ×3 (06:29→18:11)
[2019-08-06] MEDS ORDERED: SODIUM PHOSPHATE INJ 30 MMOL in NS 500 ML IV ONE ×2 (06:30→06:34)
[2019-08-06] MEDS: dexmedeTOMidine 200 MCG in IV 1 EA IV SCH ×2 (06:41→13:49)
--- NOTE | 2019-08-06 08:04 | REP ---
Portable chest x-ray: Single view. History: Respiratory failure. Comparison chest x-ray: August 05, 2019. Findings: The patient is rotated somewhat to the right for the current exposure. A right internal jugular multilumen central venous line terminates in the expected location of the superior vena cava. There is a left internal jugular central venous line again noted terminating in the region of the brachiocephalic vein. Endotracheal tube is seen at the level of the proximal clavicles. An NG tube is seen in the gastric fundus region. There is blunting of the left lateral pleural angle. A pleural opacity is seen in the left mid lung zone on the current chest x-ray which may be fissural fluid. The right lung is essentially clear. Cardiomediastinal silhouette is unchanged. Electronically Signed by Rodolfo Chester MD 08/06/2019 07:56 A
[2019-08-06] MEDS: MEROPENEM INJ 1 GM in IV 1 EA IV SCH ×2 (08:58→20:50)
[2019-08-06] MEDS: PANTOPRAZOLE 40MG INJ (PROTONIX) (C9113) IV SCH ×2 (08:58→20:51)
[2019-08-06] MEDS: DOCUSATE SOD LIQ 100MG/10ML UDC GT SCH ×2 (08:58→20:50)
[2019-08-06] MEDS: VANICREAM MOISTURIZING SKIN CREAM 113GM TUBE TOP SCH ×2 (08:59→20:51)
[2019-08-06] MEDS: propylthiouraciL 50 MG TAB PO SCH ×2 (08:59→21:01)
[2019-08-06] MEDS: CHLORHEXIDINE GLUCONATE 0.12 % 15ML UDC (PERIDEX ORAL RINSE) MT SCH ×2 (09:03→20:51)
[2019-08-06] MEDS: propofoL 1,000 MG in IV 1 EA IV SCH ×2 (09:04→20:57)
--- NOTE | 2019-08-06 10:14 | IPN ---
DATE: 08/05/2019 GENERAL: The patient is seen, examined this morning at the bedside in the intensive care unit. 24-hour events are reviewed. He has been weaned off of is been weaned off of labile side and he is presently having 50 mL an hour fluid removed from CRRT and in the past 24 hours he is net negative 700 mL on review of the flow sheets. He has had probable weaning trial later this afternoon. His FIO2 is 30%. There are no signs of renal recovery. He remains only oliguric. He is unable to provide any review of systems secondary to clinical condition. Vital signs: Temperature 95.4, pulse 97, respiratory rate 19, blood pressure 109/55, saturating 99% on 30% FiO2. Review of intake and output yesterday in the past 24 hours shows he has net negative 700 mL . Weight in the bed scale today is 84.5 kg. General: The patient is seen intubated, sedated eyes are closed. There is endotracheal and orogastric tube in place. Neck is supple. Jugular veins do not appear elevated. There is a right internal jugular trial catheter. Cardiac S1, S2 regular rate. Trace to 1+ edema in the legs and dependent area. Respiratory: Shows diminished breath sounds at the bases, otherwise no crackles or rhonchi. The abdomen is soft. There is a ostomy with formed hard stool present. Genitourinary: Shows Davila catheter. Neurologic: He is intubated and sedated. Musculoskeletal: There is muscle wasting. Skin: There is a diffuse exfoliative rash and skin appears with a reddish hue diffusely. LABS: Labs white count 8.9, hemoglobin 8.2, platelet 69, sodium 141, potassium 4.2, BUN 10, creatinine 0.8. Chest x-ray today blunting of the left lateral pleural angle. Diffusely prominent interstitial markings. INPATIENT MEDICATIONS: He is off the Levophed pressor, he received 15 sodium phosphate. His remainder medications are unchanged as compared to yesterday PROBLEMS: 1. Oliguric renal failure in this patient who has been on CRRT via Perma-Cath. The patient has been weaned off of Levophed pressor support. He is maintaining MAP above of. There is increased interstitial markings on chest x-ray. Compressor Technician would like to try a weaning trial. We will keep him on the leather drier side with CRRT. For today I will increase fluid removal for 100 mL an hour for a MAP greater than 70 and I would plan to discontinue PIANO ACCOMPANIST this evening given that he is off of pressors. He can be transitioned to intermittent hemodialysis. There is no sign of any renal recovery. 2. Ventilator dependent respiratory failure. Vent management is as per fruit farmer. X-ray shows persistent interstitial markings. His FIO2 is down to 30%. Blood gas shows pO2 of 100. He is been tolerating fluid removal well with CRRT and in the past 24 hours is negative 700 mL. We will continue CRRT up until 5 o'clock this evening when we will discontinue and transition to intermittent hemodialysis weaning trial is as per fruit farmer. 3. Sepsis, exact source is unknown. There was possible aspiration pneumonia. He also has an ileus. He is on broad-spectrum antimicrobials as well as anti fungal. He is off of Levophed pressor support but he does continue on hydrocortisone 50 mg every 8 hours. Meropenem and micafungin. His white count has down trended.
[2019-08-06] MEDS: TRIAMCINOLONE ACET 0.1% OINTMENT 15 GM TOP SCH ×2 (13:52→20:51)
[2019-08-06 14:21] LABS: ABG BASE EXCESS -1.7 (-2.0-2.0); ABG HCO3 21.6 MEQ/L (22.0-26.0); ABG O2 SATURATION 96.7 % (95.0-99.0); ABG PARTIAL PRESSURE CO2 31.2 mmHg (35.0-45.0); ABG PARTIAL PRESSURE O2 89.7 mmHg (75.0-100.0); ABG TOTAL CO2 22.5 MEQ/L (23.0-31.0); ABG pH (ARTERIAL) 7.458 UNITS (7.350-7.450)
--- NOTE | 2019-08-06 14:34 | IPN ---
DATE: 08/06/2019 Juan is seen and examined this morning at the bedside in the intensive care unit. His CRRT was discontinued this morning. He had negative 100 mL an hour fluid removal over the past day. His is net negative about 2.4 liters in the past 24 hours. He is for a weaning trial later on today. He has not required any pressor support. REVIEW OF SYSTEMS: Unable to obtain secondary to clinical condition. PHYSICAL EXAMINATION: VITAL SIGNS: Temperature 99.5, pulse 107, respiratory rate 23, blood pressure 105/55, saturating 98% on FIO2 30%. Review of input and output shows he is net negative 2.4 liters in the past 24 hours. Weight on the bed scale today is 80 kg, which is decreased from prior. GENERAL: The patient is seen intubated and sedated in the intensive care unit. Pupils are round and reactive to light. There is a endotracheal tube and orogastric tube in place. There is a central line in the right IJ. Jugular veins are not elevated. CARDIAC: Regular rate. There is trace to 1+ edema in the dependent areas on the thighs. RESPIRATORY: Shows bilateral air entry. No crackle or rhonchi and somewhat diminished at the bases. ABDOMEN: Soft. There is an ostomy. Stool is pasty. GENITOURINARY: Shows Davila catheter with minimal urine. NEUROLOGIC: He is sedated. MUSCULOSKELETAL: There is muscle wasting. LABORATORIES: Sodium 141, potassium 4.5, bicarbonate 27, BUN 10, creatinine 0.9, hemoglobin 8.4 white count 11.3. Chest x-ray on August 06 showed right lung is clear and there is blunting of the left lateral pleural angle and a pleural opacity is seen in the left mid lung zone. Inpatient medications were reviewed by myself. He received 60 of sodium phosphate. He continues on Presedex. He was started on docusate yesterday. Remainder medications are unchanged from prior. PROBLEMS: 1. Recurrent oligoanuric renal failure. The patient has stabilized from a hemodynamic point of view. He has been off of Levophed pressor support for more than a day. His CRRT was discontinued this morning. We were able to take off a significant amount of fluid in the past 24 hours. His daily weights have down trended. He is negative about 2.4 liters. His FIO2 requirements are only 30%. He is for a ventilator weaning trial later today. We will transition to intermittent hemodialysis. His hemodialysis treatment will be on August 07, and there are no signs of any renal recovery. 2. Ventilator dependent respiratory failure, vent management is as per jacquard loom fixer. X-ray shows that the right lung is clear and there is some blunting of the left lateral pleural angle. He has had improved fluid removal with CRRT in the past 24 hours, daily weights down trended. I am hopeful that he will do well with the weaning trial. We will transition to intermittent hemodialysis for ongoing management of his volume status. 3. Diastolic congestive heart failure. Volume status appears fairly reasonable at present and will now be managed by intermittent hemodialysis given improvement in his hemodynamics. Continue with daily CVP. Next hemodialysis treatment will be on Tuesday. 4. Sepsis, source unknown, possibly GI source and subsequently aspiration pneumonia. He has been on stress dose steroids. He is receiving empiric anti fungal (micafungin) and also continues on meropenem. Antimicrobials are as per primary team.
[2019-08-06] MEDS: ACETAMINOPHEN TAB 650MG DOSE (2X325MG) NG PRN (16:54)
--- NOTE | 2019-08-06 17:55 | CCN ---
DATE: 08/06/2019 The patient was seen and examined this morning during bedside rounds. The patient has not had any bowel movement overnight but he does have some gas in his colostomy bag and some mild output. He has not had any significant output from his orogastric (OG) tube. The patient is off of continuous venovenous hemodialysis (CVVHD) currently. He is on sedation with propofol and Precedex currently. PHYSICAL EXAMINATION: Temperature 97.0, pulse 100, respirations 18, blood pressure 103/55, oxygen saturation 99% on 30% fraction of inspired oxygen (FiO2). Intake 830, output 2.8 liters, net negative 2 liters. GENERAL: The patient is intubated and sedated. He is responsive to painful stimuli and moving extremities but is not following commands properly and is not opening eyes to command. HEENT: Normocephalic, atraumatic. Pupils are equal and reactive to light bilaterally. Moist mucous membranes. Neck is supple. Trachea is midline. There is no palpable cervical adenopathy. The patient does not have a gag reflex. CARDIAC: Regular rate and rhythm. Normal S1, S2 without appreciable murmurs. PULMONARY: Coarse breath sounds bilaterally with decreased breath sounds at the bases. There is no significant wheezing or rhonchi. ABDOMEN: Soft, nontender, appears improved in terms of distension. He has a well-healed surgical incision and a colostomy in place with a parastomal hernia. EXTREMITIES: He has no significant lower extremity edema or sacral edema noted today. SKIN: The patient has a dry exfoliative rash which appears slightly improved today. LABORATORY DATA: WBC 11.3, hemoglobin 8.4, platelets are 68. Chemistry: Sodium is 141, potassium is 4.5, chloride is 107, bicarbonate is 27, BUN is 10, creatinine 0.96, glucose is 146, phosphorus is 2.2. ABG: PH is 7.476, pCO2 of 33.4, pO2 of 174.8. IMAGING STUDIES: Chest x-ray shows blunting at the left costophrenic angle and some perifissural fluid. His right IJ hemodialysis catheter is in good position and he has a left IJ triple lumen with the tip in the brachiocephalic vein. He has some mild increased interstitial markings. ASSESSMENT AND PLAN: Mr. Higgins is a 74-year-old male with history of diabetes, hypertension, chronic obstructive pulmonary disease (COPD), chronic kidney disease (CKD) who has had a prolonged and complicated hospitalization. He was admitted initially with acute respiratory failure and septic shock where he was intubated and on mechanical ventilation. He was also found to have acute renal failure requiring continuous venovenous hemodialysis (CVVHD) in the intensive care unit (ICU) initially. He was then extubated and weaned off of pressors and downgraded to the medical floor. The patient had issues with mental status and periodic agitation on the floor. He was also found have increasing abdominal distension secondary to ileus as well as increasing leukocytosis and hypotension, likely secondary to septic shock. The patient was intubated again for acute respiratory failure secondary to aspiration as well as with worsening respiratory acidosis. He was also started on dialysis again for worsening renal failure. 1. Acute respiratory failure in the setting of shock, secondary to acute gastrointestinal (GI) bleed as well as possible sepsis. There is also concern for aspiration pneumonia and evidence of some pulmonary edema on his imaging. The patient is on mechanical ventilator with volume control with settings of 420/18/30 and 5. He did have a sedation vacation done today were his propofol was on hold and he was only on Precedex. With the sedation vacation, he was moving his extremities but not opening eyes and following commands appropriately. He was also not noted to have a significant gag reflex with mouth care. The patient was placed on a weaning trial with pressure support which he did tolerate on the ventilator. His arterial blood gas (ABG) on pressure support was acceptable. However, as he does not have a significant mental status, there is concern that he will be unable to protect his airway and be reintubated quickly. We will continue now with propofol for sedation. The Versed has been on hold and he may have had some accumulation from the Versed contributing potentially to his mental status. We will continue to monitor with daily sedation vacations and weaning trials. Can use Precedex as needed to help with his weaning trials as he has issues in the past with agitation during his previous mechanical ventilation. This is the patient's second intubation since his admission. If he were to be extubated and then require another intubation, he would likely need a tracheostomy placement for his third intubation and percutaneous endoscopic gastrostomy (PEG) tube as he has difficulty with protecting airway and aspiration. We will need to discuss this with the patient's healthcare proxy, his common-law Izabella. 2. Sepsis, likely secondary to a gastrointestinal (GI) source initially also with possible aspiration pneumonia. The patient was initially on Levophed for blood pressure support but has been off of vasopressors now. The patient is on hydrocortisone for stress-dose steroids as he was on prednisone since his admission. We will continue tapering his steroids and we will wean him down as tolerated. Continue with meropenem. His vancomycin was discontinued as his methicillin-resistant Staphylococcus aureus (MRSA) screen was negative. The patient is still on micafungin as he did have elevated beta-D glucan, although this can sometimes be falsely elevated due to certain antibiotics. He does have risk for fungal infection given his prolonged hospitalization and immunocompromised state with the steroids. He was also on total parenteral nutrition (TPN) at some point as well. We will followup recommendations from infectious disease (ID) in regards to antibiotics. We will order a sputum fungal culture and cytology for PCP We will followup a repeat procalcitonin and a beta-D glucan level. 3. Acute renal failure. He was on continuous venovenous hemodialysis (CVVHD). The patient's blood pressure has improved and he is off pressors and so may be able to tolerate regular hemodialysis if needed. He did tolerate fluid removal yesterday. We will continue as per renal recommendations. 4. Acute GI bleed with ileus. The patient appears to have had improvement in his ileus and his hemoglobin and hematocrit have remained stable now. We will continue to monitor hemoglobin and hematocrit and transfuse as needed. He does have thrombocytopenia but does not appear to have any worsening in terms of bleeding. We will hold off on platelet transfusion for now. The patient's international normalized ratio (INR) improved with vitamin K administration. He likely had vitamin K deficiency from poor oral intake with his prolonged hospitalization. We will continue monitor his coagulation profile. Deep vein thrombosis (DVT) prophylaxis. Thromboembolic-deterrent stockings (TEDS) and sequential compression device (SCD). GI prophylaxis. Proton pump inhibitor (PPI). Code status. Full code. Total critical care time spent not including procedures is approximately 45 minutes. MTDD
[2019-08-06] MEDS: fentaNYL 100 MCG/2 ML INJECTION (J3010) IV PRN ×3 (18:37→22:04)
--- NOTE | 2019-08-06 18:55 | IPN ---
DATE: 08/06/2019 Asked to followup by Dr. Milian for a patient who decompensated in the past 10 days. I had last seen the patient on 07/20/2019. The patient was doing fairly well. The patient had been on a course of doxycycline for Legionnaire positive urine antigen from 07/17/2019 through 07/27/2019. The patient had increasing shortness of breath and leukocytosis on 07/27/2019. A chest CT showed atelectasis but no pneumonia. He was restarted on meropenem and IV vancomycin because his white count had increased to 22,000. The patient on 08/01/2019 developed respiratory failure and his white count had gone from 30,000 to 44,000. He was noted to have bloody emesis. He was intubated. While Dr. Guzman intubated him, she had noted a large amount of bloody drainage. He had three sets of blood cultures done that were negative. CT abdomen and pelvis showed a small bowel obstruction and worsening bilateral lower lobe consolidations. The patient had been on meropenem and vancomycin from 07/27/2019 to 08/01/2019. On 08/01/2019, vancomycin was discontinued as his methicillin-resistant Staphylococcus aureus (MRSA) screen was negative. A Fungitell assay was done and came back positive and therefore, the patient was started on micafungin on 08/03/2019. The patient had a trial of extubation today but since he is too lethargic and not following commands, he was not extubated. His fraction of inspired oxygen (FiO2) is only at 30%. He had a right hemodialysis catheter in the right groin which was removed today. He has a right internal jugular (IJ) central line. He has an ileus and has very little bowel movements in his colostomy bag. LABORATORY DATA: White count today is 11.3, hemoglobin 8.4, hematocrit 27.4, platelets 68 which have continued to drop in the past week with his normal being over 200. Sodium 141, potassium 4.5, chloride 107, bicarbonate 27, BUN 10, creatinine 0.96, glucose 146, calcium 8.6, phosphorus 2.2, magnesium 2.7. Procalcitonin is pending. His creatinine peaked at 2.88 on 08/01/2019 and the patient required dialysis then. Blood cultures on 07/26/2019 and urine culture was negative. On 08/01/2019, three sets of blood cultures were negative. A chest x-ray done on 08/06/2019 showed a pleural opacity in the left mid lung on current chest x-ray, may be fissural fluid, left internal jugular central venous catheter and NG tube in place, endotracheal tube in place, blunting of the left lateral pleural angle, right lung is clear. PHYSICAL EXAMINATION: He is a lethargic gentleman, agitated with mitts in his hands, trying to pull his tube, in no acute distress. HEART: Normal S1, S2, tachycardiac. LUNGS: Clear anteriorly. No wheezes, rales, or rhonchi. ABDOMEN: Distended, colostomy left lower quadrant with no bowel sounds appreciated. No bowel movements. No stools in the bag. EXTREMITIES: Trace edema bilaterally. SKIN: Mildly erythematous with blotchy rash in the upper thighs. Onychomycosis times 10, some scaling and peeling of the feet. IMPRESSION: This is a 74-year-old gentleman who has been hospitalized for the past month, initially with respiratory failure, diagnosed later with Legionnaire pneumonia, treated with 10 days of oral doxycycline, then the patient developed an ileus, upper gastrointestinal (GI) bleed and what seems to me like a chronic obstructive pulmonary disease (COPD) exacerbation, probably from aspiration of vomitus or blood, intubated, severe leukocytosis that could have been induced by stress, worsened by steroids. He received a dose of Solu-Medrol 125 mg on 07/31/2019. The patient developed acute renal failure and has required dialysis again. He is currently on IV meropenem since 07/27/2019 which is 10 days and that could be discontinued and vancomycin a total of four days which was discontinued on 08/01/2019. He is currently on micafungin due to a slightly elevated beta 1-3 glucan assay on 08/02/2019 at 02:20 but my suspicion of that being a fungal infection is low. PLAN: Would suggest obtaining a sputum for cytology, fungal smear and culture, Legionnaire sputum culture. We will discuss the case with Dr. Ho tomorrow. Discontinue meropenem. The patient has already received 10 days from 07/27/2019. If his Fungitell assay is lower, I would not recommend continuing micafungin. We will decide on antifungal therapy tomorrow after repeat laboratories including procalcitonin, Fungitell and sputum cytology sent.
--- NOTE | 2019-08-06 19:06 | IPNPDOC ---
Date Seen The patient was seen on 08/06/19. Progress Note HISTORY OF PRESENT ILLNESS: 74-year-old male with past medical history of diabetes mellitus, hypertension, COPD, hyperthyroidism, chronic kidney disease presents to the emergency room with shaking of his arms and malaise. Patient was admitted 1 month ago for right hip fracture status post mechanical fall, presented to emergency room 1 week ago with cellulitis, was advised to be admitted by emergency room staff but patient refused to be admitted and went home. Patient has a history of signing out AMA. Patient currently reports he has had poor oral intake for the past few days, chills and fever, urinary incontinence. He denies any chest pain, nausea, vomiting, abdominal pain or diarrhea. 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 07/31/19 In the interim, patient has developed worsening leukocytosis with imaging concerning for pancreatitis, although patient has benign abdomen and lipase is within normal limits. Patient underwent surgical evaluation, scheduled to have MRCP for further evaluation. Patient without any medical complaints today, agitated about his hospitalization, wishes to go home, refusing rehabilitation, refusing to work with physical therapy. He denies any shortness of breath, chest pain, nausea, vomiting, abdominal pain or diarrhea at this time. 08/01/19 Patient decompensated overnight, initially developed acute hypercapnic respir atory acidosis for which she was transferred to PCU, subsequently became hypotensive and transferred to the ICU, received IV fluid bolus followed by levophed infusion. Patient was seen in the morning, clearly altered compared to yesterday, asking me to leave him alone, refusing physical examination or answering any questions. Patient was offered NG tube placement last night prior to decompensation due to large volume of fluid noted in his stomach on MRCP and one episode of emesis, he refused. He was once again offered NG tube placement today, which he is refusing. Patient was reevaluated in the afternoon, remains altered, but more amenable to treatment at this time. He has had minimal urine output since this morning, renal function worsening, discussed case with Dr. Rasmussen who agrees the patient will likely need to go back on CRRT and recommends placement of Denver catheter. Verbal consent obtained from patient's , who as of right now wants all treatment available, Denver catheter was then placed in his right femoral vein using ultrasound guidance and sterile technique. Patient was agitated during the procedure, requiring mild sedation with Ativan 2 mg IV (given separately 1 mg at a time, 10 minutes apart). After the procedure, patient remained somnolent and started to become hypoxemic after 30 minutes, repeat ABG showed worsening respiratory acidosis with profound hypoxemia, likely related to aspiration of gastric contents. Patient was emergently intubated by Dr. Guzman. Patient was reevaluated in the evening, now on CRRT, comfortable with mild sedation on mechanical ventilation, awaiting PRBC transfusion, received IV albumin in the interim, off of Levophed at this time. 08/02/19 Patient has been off of Levophed since 3 AM, started having a leak through the external tubing of Denver catheter around midnight, has been off of CRRT since then. He remains intubated and sedated on Versed, moving all extremities, unable to follow commands at this time. He has had minimal urine output. 08/03/19 Patient seen in the morning, remains intubated, on minimal levophed at this time, sedated on Versed, moving all extremities, does not open eyes or follow commands. He continues to have minimal urine output, permacath was placed yesterday. Patient had bright red blood draining from OG tube overnight, tube has been clamped since. 08/05/19 Patient seen in the morning, sedated with Versed, no longer requiring vasopressors, remains on CRRT. 08/06/19 No acute events overnight, was on Precedex overnight, tolerated pressure support trial during the day but patient had very poor mentation, unable to open eyes/follow commands and lacking gag reflex; high concern for inability to protect his airway and for that reason, patient was not extubated. He is no longer having any output from OG tube, having small amount of stool pass through ostomy. He is moving all extremities, unable to follow commands. PHYSICAL EXAMINATION: VITAL SIGNS: Please see below. GENERAL: Sedated on mechanical ventilation HEENT: Size 8 ET tube 22 cm at the lip NECK: Supple CARDIOVASCULAR EXAMINATION: S1, S2 RESPIRATORY EXAMINATION: Scattered rhonchi ABDOMINAL EXAMINATION: Soft, nondistended, hypoactive bowel sounds, ostomy output increasing EXTREMITIES: Diffuse edema SKIN: Scattered erythema NEUROLOGICAL EXAMINATION: Sedated LABORATORY DATA: See below. MICROBIOLOGY: Please see below. ASSESSMENT: 74-year-old male with past medical history of type please mellitus, hypertension, COPD, hypothyroidism and chronic kidney disease was admitted for septic shock, acute respiratory failure and acute renal failure requiring multiple vasopressors CRRT and endotracheal intubation with mechanical ventilation, now returns to the ICU with small bowel obstruction, possible GI bleed, septic shock, acute on chronic renal failure, acute respiratory failure and reintubated. PLAN: 1. Acute hypercapnic and hypoxemic respiratory failure Reintubated, likely due to aspiration of gastric contents and Ativan given for Denver catheter placement, did well on pressure support trial but concern is high for inability to protect his airway due to poor mentation despite discontinuation of sedatives. CT head to assess intracranial pathology, on Propofol and fentanyl for sedation. Will discuss with regarding possible Tracheostomy & PEG placement. Spray Maker following 2. Septic shock Unknown etiology, possible GI source, now with aspiration pneumonia. On broad- spectrum coverage with Merrem and micafungin, pmur-[id number] levels elevated, will repeat [id number] & Procal, ID was reconsulted, sputum cultures & sputum cytology to assess for PCP ordered, blood cultures negative. Hydrocortisone decreased to 50 mg every 12 hours 3. Possible GI bleed. status post 3 unit of packed red blood cells total, H&H has since been stable, no longer having any output from NG tube, no immediate plan for EGD, continue Protonix 40 mg twice a day, Carafate 1 g every 6 hours, further transfusion as needed to maintain hemoglobin greater than 8. 4. Acute on chronic kidney disease. Renal function has profoundly worsened, likely due to septic shock, minimal urine output, nephrology was reconsulted, CRRT discontinued earlier today. 5. Diabetes mellitus. Hold metformin, sliding still insulin every 6 hours. 6. Hyperthyroidism. Continue propylthiouracil 7. Gout. Hold allopurinol for now DVT prophylaxis: TEDs GI prophylaxis: PPI VS, I&O, 24H, Fishbone Vital Signs/I&O Vital Signs Date Time Temp Pulse Resp B/P (MAP) Pulse Ox O2 Delivery O2 Flow Rate FiO2 08/06/19 18:37 120 27 131/61 98 08/06/19 18:00 30 08/06/19 13:00 Ventilator 08/06/19 12:00 99.5 08/03/19 07:55 35 I&O- Last 24 Hours up to 6 AM 08/06/19 06:00 Intake Total 554.8 ml Output Total 2437 ml Balance -1882.2 ml Laboratory Data 24H LABS Laboratory Tests 2 08/05/19 23:39: Bedside Glucose (Misc Panel) 156H 08/06/19 05:37: Nucleated Red Blood Cells % (auto) 2.1H, Blood Gas Bicarbonate Standard 25.2, Arterial Blood pH 7.476H, Arterial Blood Partial Pressure CO2 33.4L, Arterial Blood Partial Pressure O2 174.8H, Arterial Blood Total CO2 25.1, Arterial Blood HCO3 24.1, Arterial Blood Base Excess 0.8, Arterial Blood Oxygen Saturation 99.3H, Anion Gap 7L, Glomerular Filtration Rate > 60.0, Calcium Level 8.6L, W hole Blood Ionized Calcium 4.8, Phosphorus Level 2.2#L, Magnesium Level 2.7H 08/06/19 05:51: 08/06/19 12:38: Bedside Glucose (Misc Panel) 142H 08/06/19 14:13: Blood Gas Bicarbonate Standard 23.0, Arterial Blood pH 7.458H, Arterial Blood Partial Pressure CO2 31.2L, Arterial Blood Partial Pressure O2 89.7, Arterial Blood Total CO2 22.5L, Arterial Blood HCO3 21.6L, Arterial Blood Base Excess - 1.7, Arterial Blood Oxygen Saturation 96.7 08/06/19 18:00: Bedside Glucose (Misc Panel) 153H CBC/BMP Laboratory Tests 08/06/19 05:37 Microbiology Microbiology 08/06/19 Fungal Smear, Received Pending 08/06/19 Fungal Culture, Received Pending 08/01/19 Blood Culture - Final, Complete NO GROWTH AFTER 5 DAYS 08/01/19 Blood Culture - Final, Complete NO GROWTH AFTER 5 DAYS 08/01/19 Blood Culture - Final, Complete NO GROWTH AFTER 5 DAYS SHARLA LUI MD Aug 06, 2019 19:06
--- NOTE | 2019-08-06 19:55 | REPVR ---
PROCEDURE INFORMATION: Exam: CT Head Without Contrast Exam date and time: 08/06/2019 7:39 PM Age: 74 years old Clinical indication: Altered mental status/memory loss; Additional info: Assess for CVA TECHNIQUE: Imaging protocol: Computed tomography of the head without contrast. Radiation optimization: All CT scans at this facility use at least one of these dose optimization techniques: automated exposure control; mA and/or kV adjustment per patient size (includes targeted exams where dose is matched to clinical indication); or iterative reconstruction. Other technique: STROKE PROTOCOL was implemented. COMPARISON: CT Head without contrast 07/06/2019 2:25 AM FINDINGS: Brain: No intracranial mass, focal mass effect or midline shift. No acute intracranial hemorrhage. Mild decreased attenuation in periventricular/centrum semiovale white matter. No focal effacement of cortical sulci to indicate acute cortical infarct. Focal encephalomalacia medial right occipital, suggesting a prior infarct, stable. Ventricles: Prominent ventricles and CSF spaces suggest parenchymal volume loss. Bones/joints: No calvarial fracture or destructive process. Sinuses: Mucosal thickening or fluid is present in the sphenoid sinus. Ethmoid mucosal thickening or fluid is present. Mastoid air cells: Mastoid air cells are normally aerated. Orbits: Visualized globes and orbits are unremarkable. Soft tissues: No focal extracranial soft tissue swelling. IMPRESSION: 1. No acute intracranial abnormality. 2. Atrophy, stable, remote medial right occipital infarct and chronic microangiopathic change in supratentorial white matter. ASSESSMENT: ASPECTS (Jessica Stroke Program Early CT Score) is 10 Electronically signed by: Jose Angel Montilla On 08/06/2019 19:55:31 PM
--- NOTE | 2019-08-06 20:11 | REPVR ---
PROCEDURE INFORMATION: Exam: CT Abdomen And Pelvis Without Contrast Exam date and time: 08/06/2019 7:39 PM Age: 74 years old Clinical indication: Other: Ileus; Additional info: Illeus TECHNIQUE: Imaging protocol: Computed tomography of the abdomen and pelvis without contrast. Radiation optimization: All CT scans at this facility use at least one of these dose optimization techniques: automated exposure control; mA and/or kV adjustment per patient size (includes targeted exams where dose is matched to clinical indication); or iterative reconstruction. COMPARISON: CT ABD PELVIS W/O CONTRAST 08/01/2019 5:34 AM FINDINGS: Pleural space: Small dependent pleural effusions with adjacent atelectasis. No underlying pulmonary edema. Liver: Noncontrast liver shows no obvious lesion. Gallbladder and bile ducts: Gallbladder is surgically absent. Pancreas: Pancreas appears edematous with peripancreatic fluid and possible focus of hemorrhage measuring 2.5 cm in the anterior pancreatic body. Similar appearance compared to the recent prior CT Spleen: Noncontrast spleen shows no obvious focal deformity. Adrenals: Adrenal glands are normal in appearance. Kidneys and ureters: Kidneys show no stone or hydronephrosis. Incidental lower pole stable left renal cyst. Stomach and bowel: Left lower quadrant colostomy shows no obstruction or dehiscence area in small parastomal fat containing hernia. Intraperitoneal space: Small volume of abdominal and pelvic free fluid low density, unchanged. No new organized collection. Pneumoperitoneum is present, most consistent with recent surgery . No abnormal pelvic mass. Vasculature: Atherosclerotic change present in the aorta, without aneurysm. Lymph nodes: No enlarged lymph nodes. Bladder: Davila catheter is present within the bladder. Bones/joints: Degenerative changes are seen in the lumbar spine with disc height loss, endplate osteophytes and hypertrophic facet arthropathy. Right femur hardware is unchanged grossly. Other findings: Exam is significantly limited. No IV contrast could be administered. Exam is degraded by motion artifact, and the patient was scanned with the arms at the sides of the body, resulting in significant streak artifact. IMPRESSION: 1. Resolution of prior small bowel obstruction since the previous exam, with revision of prior ostomy. No residual obstruction. Pneumoperitoneum is suggestive of recent surgery. 2. Probable persistent changes of pancreatitis, with unchanged appearance in the interim area in 3. Bilateral pleural effusions and atelectasis or pneumonia Electronically signed by: Jose Angel Montilla On 08/06/2019 20:11:03 PM
[2019-08-06] MEDS: MICAFUNGIN SODIUM 150 MG in D5W 100 ML IV SCH (20:51)
[2019-08-07] VITALS (39 sets, daily range): BP systolic 93–148; BP diastolic 50–74; O2SAT 98
[2019-08-07] MEDS: SUCRALFATE SUSP 1GM/10ML UD PO SCH ×4 (00:14→17:05)
[2019-08-07] MEDS: HumaLOG INSULIN (NovoLOG) PER UNIT SC SCH ×4 (00:14→17:16)
[2019-08-07] MEDS: DIMETHICONE 2% OINTMENT(VANIPLY) 70GM TUBE TOP SCH ×4 (00:15→17:06)
[2019-08-07] MEDS: propofoL 1,000 MG in IV 1 EA IV SCH ×6 (00:20→22:42)
[2019-08-07] MEDS: IPRATROPIUM 0.5MG/ALBUTEROL 2.5MG INH SOL UD 3ML (DUONEB)(J7620) NEB SCH ×4 (01:27→21:01)
[2019-08-07] MEDS: HYDROCORTISONE 100 MG/2 ML VIAL (J1720 PER 1) IV SCH ×3 (02:08→21:29)
[2019-08-07] MEDS: fentaNYL 100 MCG/2 ML INJECTION (J3010) IV PRN ×2 (02:35→12:19)
[2019-08-07 05:48] LABS: HEMATOCRIT 27.5 % (42.0-52.0); HEMOGLOBIN 8.7 g/dl (13.5-17.5); MEAN CORPUSCULAR HEMOGLOBIN 29.9 pg (27.0-33.0); MEAN CORPUSCULAR HGB CONC 31.6 g/dl (32.0-36.5); MEAN CORPUSCULAR VOLUME 94.5 fl (80.0-96.0); RED BLOOD COUNT 2.91 10^6/uL (4.30-6.10); WHITE BLOOD COUNT 16.2 10^3/uL (4.0-10.0)
[2019-08-07 05:53] LABS: PLATELET COUNT, AUTOMATED 65 10^3/uL (150-450)
[2019-08-07 06:12] LABS: CALCIUM LEVEL 9.2 MG/DL (8.8-10.2); CREATININE FOR GFR 1.43 MG/DL (0.70-1.30); GLOMERULAR FILTRATION RATE 51.6 (>42); MAGNESIUM LEVEL 2.6 MG/DL (1.8-2.4); PHOSPHORUS LEVEL 4.7 MG/DL (2.5-4.9); POTASSIUM SERUM 3.9 MEQ/L (3.5-5.1)
[2019-08-07 06:27] LABS: ABG BASE EXCESS -1.6 (-2.0-2.0); ABG HCO3 22.3 MEQ/L (22.0-26.0); ABG O2 SATURATION 97.2 % (95.0-99.0); ABG PARTIAL PRESSURE CO2 34.3 mmHg (35.0-45.0); ABG PARTIAL PRESSURE O2 94.1 mmHg (75.0-100.0); ABG STANDARD HCO3 23.1 MEQ/L (22.0-26.0); ABG TOTAL CO2 23.3 MEQ/L (23.0-31.0)
--- NOTE | 2019-08-07 08:15 | REP ---
Portable chest x-ray: Single view. History: Respiratory failure. Comparison study: August 06, 2019. Findings: Endotracheal tube is seen in good position at the level of the transverse aorta. The NG tube enters left upper quadrant. There are bilateral internal jugular central venous lines again noted in place unchanged. Monitoring electrodes are seen. There is blunting of the left lateral pleural angle which is felt to be unchanged. No new infiltrate is seen. Electronically Signed by Rodolfo Chester MD 08/07/2019 08:07 A
[2019-08-07] MEDS: MEROPENEM INJ 1 GM in IV 1 EA IV SCH ×2 (08:23→20:30)
[2019-08-07] MEDS: DOCUSATE SOD LIQ 100MG/10ML UDC GT SCH ×2 (08:23→21:29)
[2019-08-07] MEDS: PANTOPRAZOLE 40MG INJ (PROTONIX) (C9113) IV SCH ×2 (08:23→21:29)
[2019-08-07] MEDS: CHLORHEXIDINE GLUCONATE 0.12 % 15ML UDC (PERIDEX ORAL RINSE) MT SCH ×2 (08:23→20:30)
[2019-08-07] MEDS: propylthiouraciL 50 MG TAB PO SCH ×2 (08:24→21:30)
[2019-08-07] MEDS: VANICREAM MOISTURIZING SKIN CREAM 113GM TUBE TOP SCH ×2 (08:25→21:31)
[2019-08-07] MEDS: TRIAMCINOLONE ACET 0.1% OINTMENT 15 GM TOP SCH ×2 (08:25→21:28)
[2019-08-07] MEDS ORDERED: AMIODARONE HCL 150 MG in IV 1 EA IV ONE (10:00)
[2019-08-07] MEDS ORDERED: AMIODARONE HCL 360 MG in IV 1 EA IV SCH (10:10)
[2019-08-07] MEDS: metroNIDAZOLE 500 MG in IV 1 EA IV SCH ×2 (10:24→17:05)
--- NOTE | 2019-08-07 11:56 | ECGEPIP ---
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 Order Number: [id number] Reading MD: Boyd Severino Measurements Intervals [place] Rate: 147 P: TX: 0 QRS: 56 QRSD: 101 T: 70 QT: 311 QTc: 486 Interpretive Statements Sinus tachycardia with episodes of atrial tachycardia. NONSPECIFIC ST & T-WAVE ABNORMALITY ABNORMAL RHYTHM ECG Increased heart rate and atrial tachycardia new compared with 07/05/2019. Electronically Signed on 08-07-2019 11:56:23 EST by Boyd Severino
[2019-08-07] MEDS: ACETAMINOPHEN TAB 650MG DOSE (2X325MG) NG PRN (12:16)
[2019-08-07 14:41] LABS: ALBUMIN 2.2 GM/DL (3.2-5.2)
--- NOTE | 2019-08-07 15:05 | CCN ---
CRITICAL CARE PROGRESS NOTE DATE: 08/07/2019 The patient was seen and examined this morning during bedside rounds. Overnight he had a episode of hypoglycemia which was corrected with D50. The patient's blood pressure remained stable overnight off of vasopressor. He has not had any significant output from his OG tube. The patient is still off of continuous veno-venous hemodialysis (CVVHD) with plan today for hemodialysis. The patient was hypothermic but has been off warming blanket since yesterday afternoon. He has not been febrile but his temperature is T-max 99.5. Overnight the patient also had episodes of tachycardia. His heart rate ranged from the 110s up to the 140s and 150s occasionally. The patient had an EKG overnight which showed sinus tachycardia as well as episodes of atrial tachycardia which is new for him. PHYSICAL EXAM: Temperature T-current 96.8, pulse 115, respirations 18, blood pressure 132/60, O2 sat 98% on 30% FiO2, ins 510, outs 482 General: Patient is intubated and sedated. He is moving extremities but is not following commands properly. Is not opening his eyes to commands. He responds to painful stimuli only. HEENT: Normocephalic, atraumatic. Pupils are reactive to light bilaterally. There is moist mucous membranes. Neck is supple. Trachea is midline. There is no palpable cervical adenopathy. The patient does not have a gag reflex with oral care. Cardiac: Regular rate and rhythm. Normal S1-S2. Unable to appreciate any murmurs. Pulmonary: Coarse ventilated breath sounds bilaterally with decreased breath sounds at the bases. No wheezing or rhonchi. Abdomen is soft, distension appears improved. Appears to have possible mild tenderness with deep palpation. 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 Extremities: There is no lower extremity edema bilaterally. Skin: The patient has a dry exfoliative rash which appears slightly improved. LABORATORY DATA: WBC increased to 16.2, hemoglobin is 8.7, platelet 65. Chemistry - sodium is 141, potassium 3.9, chloride is 106, bicarb 25, BUN is 21, creatinine is 1.43, glucose is 161, mag 92.6. ABG 7.430, pCO2 is 34.3, pO2 of 94.1. IMAGING STUDIES: Chest x-ray this morning shows ET tube in place, OG tube in place. There are some mild pulmonary vascular congestion as well as blunting of the left lateral pleural angle. There is a left IJ triple lumen and a right subclavian dialysis catheter. Head CT 08/06/2019 - No acute intracranial abnormality. There is atrophy which is stable and a remote medial right occipital infarct and chronic microangiopathic changes in the supratentorial white matter. CT abdomen and pelvis, 08/06/2019 - Resolution of previous small bowel obstruction. There is a small volume of abdominal and pelvic free fluid. There is pneumoperitoneum which was not seen on the previous CT. There is edematous pancreas with peripancreatic fluid and possible focus of hemorrhage which appears unchanged from previous CT. There are small pleural effusions bilaterally with atelectasis associated. ASSESSMENT AND PLAN: Mr. Higgins is a 74-year-old male with history of diabetes, hypertension, COPD, CKD who has had a prolonged and complicated hospitalization. He was intubated initially with his admission for acute respiratory failure and septic shock. He was also found to have acute renal failure requiring CVVHD initially as well. He was subsequently extubated and weaned off of pressors and downgraded to the medical floor. He was then noted to have worsening mental status and agitation periodically on the floor. He had increasing abdominal distension as well as leukocytosis and hypotension secondary to septic shock. The patient was intubated again for acute respiratory failure secondary to aspiration possibly contributing from his acute ileus or small bowel obstruction. He was also started on dialysis again for worsening renal failure. 1. Acute respiratory failure in the setting of shock secondary to acute GI bleed as well as septic shock. There is also concern for possible aspiration pneumonia and some pulmonary edema based on his initial imaging when he was reintubated. - The patient is on mechanical ventilation with volume control settings of 420/18/30/5. - The patient had a weaning trial done yesterday which he tolerated well in terms of his ABG and tidal volumes, however, his mental status was poor and he did not have any gag reflex. I suspect he will have difficulty protecting his airway with extubation and would be reintubated quickly. Some of his encephalopathy may be in the setting now of the medications he was previously was on a Versed drip for sedation and is now on propofol. - We will continue to monitor and continue with sedation vacation and weaning trial from the ventilator as tolerated. We will need to discuss with the patient's that if he were to be extubated and required reintubation as it would be his third intubation then he would be a candidate for tracheostomy for chronic respiratory failure. - Continue with propofol and Versed as needed only and with fentanyl as needed for pain. 2. Sepsis secondary to a GI source as well as a possible aspiration pneumonia. The patient had a repeat CT abdomen and pelvis done today which showed evidence of perforation with pneumoperitoneum, which was not seen on his previous CT abdomen. The patient also had an acute GI bleed initially and he likely had a perforation possibly of a bleeding ulcer. He also had ileus which has now resolved as well. Patient likely had peritonitis contributing to his septic shock and his acute perforation likely has healed off at this time as clinically he had been improving and was off of vasopressors. - The patient was noted to have increasing leukocytosis today as well as episodes of hypoglycemia as well as hypothermia yesterday. There is some concern that he is developing again another infection. His most likely source would be intra-abdominal at this time. He has been on meropenem and previously was on vancomycin which was discontinued as his methicillin-resistant Staphylococcus aureus (MRSA) screen was negative. The patient is also on micafungin as he did have colonization with Johana and suspect with perforation that he may have some fungal infection contributing to the his acute peritonitis. - We will continue with meropenem and with micafungin for now and followup repeat procalcitonin and beta-D glucan. Can add Flagyl for double anaerobic coverage with his increasing leukocytosis and continue to monitor. - We will followup results of fungal culture and sputum cytology for PCP. - Patient is on hydrocortisone for stress-dose steroids. We will wean him down to 50 every 12 and continuing weaning as tolerated. 3. Acute renal failure. The patient was started on CVVHD initially for his acute renal failure. His blood pressures have improved and he is off of vasopressors. Appreciate renal consult recommendations. He is planned for hemodialysis later today. 4. Acute GI bleed with ileus. A repeat CT abdomen and pelvis shows evidence of pneumoperitoneum as well as some free fluid in the pelvis. Suspect the patient may have had perforation possibly from a bleeding ulcer with his upper GI bleed. Appreciate surgery consult recommendations. We will attempt to get a bedside ultrasound to see if some of the fluid in his pelvis can be drained and sent for cultures. Suspect that his acute perforation has healed as he clinically was improving. - We will continue to monitor with serial abdominal exams. - The patient's hemoglobin and hematocrit has remained stable now and he has not had any further coffee-ground output from his OG tube. His ileus also appears to have resolved. - We will continue monitor an OG tube and continue following up surgery recommendations about when to start the patient on a trial of clear liquids. - Continue to monitor hemoglobin and hematocrit and transfuse as needed. - Continue to monitor thrombocytopenia. 5. Atrial tachycardia. - The patient was noted overnight to have episodes of atrial tachycardia which was new with heart rates ranging up to 140-150s at times. The patient was given Tylenol for possible pain as well as fentanyl for pain which did not seem to improve his tachycardia. As he previously has had issues with hypotension, I would start the patient on amiodarone for rate control. - We will start the patient with IV loading amiodarone and continue to monitor his heart rate. - The patient had recent gastrointestinal (GI) bleed and so was not a candidate for anticoagulation. - We will check a lower extremity duplex to rule out deep venous thrombosis (DVT). Deep venous thrombosis (DVT) prophylaxis. Thromboembolic deterrent stockings (TEDS) and sequential compression devices (SCDs). Gastrointestinal (GI) prophylaxis. Proton pump inhibitor (PPI). CODE STATUS: FULL CODE. Total critical care time spent not including procedures approximately 50 minutes. MTDD
--- NOTE | 2019-08-07 15:20 | IPNPDOC ---
Date Seen The patient was seen on 08/07/19. Progress Note HISTORY OF PRESENT ILLNESS: 74-year-old male with past medical history of diabetes mellitus, hypertension, COPD, hyperthyroidism, chronic kidney disease presents to the emergency room with shaking of his arms and malaise. Patient was admitted 1 month ago for right hip fracture status post mechanical fall, presented to emergency room 1 week ago with cellulitis, was advised to be admitted by emergency room staff but patient refused to be admitted and went home. Patient has a history of signing out AMA. Patient currently reports he has had poor oral intake for the past few days, chills and fever, urinary incontinence. He denies any chest pain, nausea, vomiting, abdominal pain or diarrhea. 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 07/31/19 In the interim, patient has developed worsening leukocytosis with imaging concerning for pancreatitis, although patient has benign abdomen and lipase is within normal limits. Patient underwent surgical evaluation, scheduled to have MRCP for further evaluation. Patient without any medical complaints today, agitated about his hospitalization, wishes to go home, refusing rehabilitation, refusing to work with physical therapy. He denies any shortness of breath, chest pain, nausea, vomiting, abdominal pain or diarrhea at this time. 08/01/19 Patient decompensated overnight, initially developed acute hypercapnic respir atory acidosis for which she was transferred to PCU, subsequently became hypotensive and transferred to the ICU, received IV fluid bolus followed by levophed infusion. Patient was seen in the morning, clearly altered compared to yesterday, asking me to leave him alone, refusing physical examination or answering any questions. Patient was offered NG tube placement last night prior to decompensation due to large volume of fluid noted in his stomach on MRCP and one episode of emesis, he refused. He was once again offered NG tube placement today, which he is refusing. Patient was reevaluated in the afternoon, remains altered, but more amenable to treatment at this time. He has had minimal urine output since this morning, renal function worsening, discussed case with Dr. Rasmussen who agrees the patient will likely need to go back on CRRT and recommends placement of Denver catheter. Verbal consent obtained from patient's , who as of right now wants all treatment available, Denver catheter was then placed in his right femoral vein using ultrasound guidance and sterile technique. Patient was agitated during the procedure, requiring mild sedation with Ativan 2 mg IV (given separately 1 mg at a time, 10 minutes apart). After the procedure, patient remained somnolent and started to become hypoxemic after 30 minutes, repeat ABG showed worsening respiratory acidosis with profound hypoxemia, likely related to aspiration of gastric contents. Patient was emergently intubated by Dr. Guzman. Patient was reevaluated in the evening, now on CRRT, comfortable with mild sedation on mechanical ventilation, awaiting PRBC transfusion, received IV albumin in the interim, off of Levophed at this time. 08/02/19 Patient has been off of Levophed since 3 AM, started having a leak through the external tubing of Denver catheter around midnight, has been off of CRRT since then. He remains intubated and sedated on Versed, moving all extremities, unable to follow commands at this time. He has had minimal urine output. 08/03/19 Patient seen in the morning, remains intubated, on minimal levophed at this time, sedated on Versed, moving all extremities, does not open eyes or follow commands. He continues to have minimal urine output, permacath was placed yesterday. Patient had bright red blood draining from OG tube overnight, tube has been clamped since. 08/05/19 Patient seen in the morning, sedated with Versed, no longer requiring vasopressors, remains on CRRT. 08/06/19 No acute events overnight, was on Precedex overnight, tolerated pressure support trial during the day but patient had very poor mentation, unable to open eyes/follow commands and lacking gag reflex; high concern for inability to protect his airway and for that reason, patient was not extubated. He is no longer having any output from OG tube, having small amount of stool pass through ostomy. He is moving all extremities, unable to follow commands. 08/07/19 Patient seen in the morning, intubated and sedated on propofol, remains off CRRT and vasopressors. Patient underwent CT head and abdomen/pelvis overnight, which showed pneumoperitoneum. PHYSICAL EXAMINATION: VITAL SIGNS: Please see below. GENERAL: Sedated on mechanical ventilation HEENT: Size 8 ET tube 22 cm at the lip NECK: Supple CARDIOVASCULAR EXAMINATION: S1, S2 RESPIRATORY EXAMINATION: Scattered rhonchi ABDOMINAL EXAMINATION: Soft, nondistended, hypoactive bowel sounds, ostomy output increasing EXTREMITIES: Diffuse edema SKIN: Scattered erythema NEUROLOGICAL EXAMINATION: Sedated LABORATORY DATA: See below. MICROBIOLOGY: Please see below. ASSESSMENT: 74-year-old male with past medical history of type please mellitus, hypertension, COPD, hypothyroidism and chronic kidney disease was admitted for septic shock, acute respiratory failure and acute renal failure requiring multiple vasopressors CRRT and endotracheal intubation with mechanical v entilation, now returns to the ICU with small bowel obstruction, possible GI bleed, septic shock, acute on chronic renal failure, acute respiratory failure and reintubated. PLAN: 1. Acute hypercapnic and hypoxemic respiratory failure Reintubated, likely due to aspiration of gastric contents and Ativan given for Denver catheter placement, did well on pressure support trial but concern is high for inability to protect his airway and reintubation. CT head negative for acute pathology, on Propofol and fentanyl for sedation. Possible Tracheostomy & PEG placement. 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 Septic shock Unknown etiology, likely GI source, CT abdomen and pelvis showing pneumoperitoneum, likely from microperforation, clinically improving, no need for acute surgical intervention at this time, plan for IR drainage of peritoneal fluid to rule out infection. Continue with Merrem and micafungin, [id number] levels elevated, will repeat [id number] & Procal, ID was reconsulted, sputum cultures & sputum cytology to assess for PCP pending, blood cultures negative. Hydrocortisone decreased to 50 mg every 12 hours 3. Possible GI bleed. status post 3 unit of packed red blood cells total, H&H has since been stable, no longer having any output from NG tube, no immediate plan for EGD, continue Protonix 40 mg twice a day, Carafate 1 g every 6 hours, further transfusion as needed to maintain hemoglobin greater than 8. 4. Acute on chronic kidney disease. Renal function has profoundly worsened, likely due to septic shock, minimal urine output, nephrology was reconsulted, CRRT has been discontinued. 5. Paroxysmal atrial fibrillation. Having intermittent episodes of A. fib with RVR, not an ideal candidate for anticoagulation given recent GI bleed and bowel perforation, amiodarone started for rate control. 6. Diabetes mellitus. Hold metformin, sliding still insulin every 6 hours. 7. Hyperthyroidism. Continue propylthiouracil 8. Gout. Hold allopurinol for now DVT prophylaxis: TEDs GI prophylaxis: PPI VS, I&O, 24H, Fishbone Vital Signs/I&O Vital Signs Date Time Temp Pulse Resp B/P (MAP) Pulse Ox O2 Delivery O2 Flow Rate FiO2 08/07/19 14:21 99.1 123 22 114/57 97 Ventilator 08/07/19 14:16 30 08/03/19 07:55 35 I&O- Last 24 Hours up to 6 AM 08/07/19 06:00 Intake Total 502.3 ml Output Total 277 ml Balance 225.3 ml Laboratory Data 24H LABS Laboratory Tests 2 08/06/19 18:00: Bedside Glucose (Misc Panel) 153H 08/06/19 23:15: Troponin I 0.06 08/07/19 00:10: Bedside Glucose (Misc Panel) 127H 08/07/19 05:25: Nucleated Red Blood Cells % (auto) 0.6H, Immature Platelet Fraction 11.7H, Anion Gap 10, Glomerular Filtration Rate 51.6, Calcium Level 9.2, Phosphorus Level 4.7#, Magnesium Level 2.6H, Albumin 2.2L 08/07/19 05:30: Bedside Glucose (Misc Panel) 18*L 08/07/19 05:32: Bedside Glucose (Misc Panel) 151H 08/07/19 05:52: Blood Gas Bicarbonate Standard 23.1, Arterial Blood pH 7.430, Arterial Blood Partial Pressure CO2 34.3L, Arterial Blood Partial Pressure O2 94.1, Arterial B lood Total CO2 23.3, Arterial Blood HCO3 22.3, Arterial Blood Base Excess -1.6, Arterial Blood Oxygen Saturation 97.2 08/07/19 07:44: Bedside Glucose (Misc Panel) 144H 08/07/19 12:11: Bedside Glucose (Misc Panel) 149H 08/07/19 14:05: CBC/BMP Laboratory Tests 08/07/19 05:25 Microbiology Microbiology 08/06/19 Fungal Smear, Received Pending 08/06/19 Fungal Culture, Received Pending 08/01/19 Blood Culture - Final, Complete NO GROWTH AFTER 5 DAYS 08/01/19 Blood Culture - Final, Complete NO GROWTH AFTER 5 DAYS 08/01/19 Blood Culture - Final, Complete NO GROWTH AFTER 5 DAYS SHARLA LUI MD Aug 07, 2019 15:20
[2019-08-07] MEDS: AMIODARONE HCL 360 MG in IV 1 EA IV SCH (15:27)
--- NOTE | 2019-08-07 16:22 | REP ---
Bilateral lower extremity Duplex Doppler venous ultrasound: Real time compression and duplex Doppler interrogation of the bilateral lower extremity deep venous system is performed. Bilaterally, the common femoral, superficial femoral and popliteal veins are fully compressible with transducer pressure and demonstrate normal spontaneous and phasic flow, without evidence of deep venous thrombosis. Impression: No evidence of deep venous thrombosis of the bilateral lower extremity femoral popliteal venous system. Electronically Signed by Yong Villa MD 08/07/2019 04:13 P
--- NOTE | 2019-08-07 17:04 | POST-OPPD ---
LUCILLE BRIONES D.O. 08/07/19 1704: Postoperative Procedure Note Date Of Procedure: Aug 07, 2019 Time Of Procedure: 16:18 PREOPERATIVE DIAGNOSIS: Erythroderma POSTOPERATIVE DIAGNOSIS: Erythroderma PROCEDURE: Shave biopsy SURGEON: Dr. Lucille Briones DO ANESTHESIA: 1% lidocaine with epinephrine, lot# [id number], exp date: 05/10/2020 ESTIMATED BLOOD LOSS: none COMPLICATIONS: none POSTOPERATIVE NOTE: Informed consent obtained verbally from his HCP (Izabella Feldman). The risks, benefits, potential complications including the need for further surgery and alternative treatment options were fully discussed. The site was cleansed with chloroprep and anesthetized with 1% lidocaine with epinephrine, lot# [id number], exp date: 05/10/2020 . A shave biopsy was taken from the site identified on the lesion documentation form. Hemostasis was accomplished with aluminum chloride. Vaseline was placed on wound and covered with a sterile dressing. EBL negligible. Wound care instructions were given to nursing staff. GME ATTESTATION GME ATTESTATION My faculty preceptor for this patient encounter was physically present during the encounter and was fully available. All aspects of the patient interview, examination, medical decision making process, and medical care plan development were reviewed and approved by the faculty preceptor. The faculty preceptor is aware and concurs with the plan as stated in the body of this note and will attest to such by his/her cosignature. FREDDY AGUILAR MD 08/14/19 0925: GME ATTESTATION GME ATTESTATION I saw the patient with the resident and discussed the plan. I reviewed the resident's documentation and agree with the residents findings and plan. [ ] with the following exception(s): [ ] with the following clarification(s): LUCILLE BRIONES D.O. Aug 07, 2019 17:04 FREDDY AGUILAR MD Aug 14, 2019 09:25
--- NOTE | 2019-08-07 17:19 | IPNPDOC ---
Text Note Date of Service The patient was seen on 08/07/19. NOTE SUBJECTIVE: Patient is seen at bedside in the ICU. He is intubated. His CD4/CD8 ratio came back at 19.16 OBJECTIVE: Vital signs: as below General: This is an elderly male who is intubate in the ICU Abdomen: Ostomy bag is present in the left lower quadrant. No surrounding erythema Skin: There is diffuse erythroderma with desquamation of the skin covering the head, face, arms, back, chest, legs, and abdomen, 50% improved from initial consultation. He also has red-purple thickening of the skin of his lower extremities. He continues to have yellowing and thickening of the nail plate with onycholysis, as well as dystrophic nail changes on the finger nails. LABORATORY DATA: as below CD4/CD8 ratio 19.16 ASSESSMENT: This is a 74-year-old male with an extended hospitalization who has been on multiple antibiotics with worsening leukocytosis and rash. He is int ubated in the ICU and is critically ill. PLAN: 1. Erythroderma. CD4/CD8 ratio elevated at 19.16. Per literature, if this is greater than 10, there is greater concern for Sezary Syndrome. Will proceed with shave biopsy today. Pathology from previous punch biopsy is still pending. Would recommend hematology/ oncology consultation, would also recommend outpatient dermatology follow up 2-4 weeks after discharge VS,Darin, I+O VS, Darin, I+O Laboratory Tests 08/07/19 05:25 Vital Signs Date Time Temp Pulse Resp B/P (MAP) Pulse Ox O2 Delivery O2 Flow Rate FiO2 08/07/19 16:00 21 30 08/07/19 15:45 116 138/62 (87) 99 Ventilator 08/07/19 15:25 99.0 08/03/19 07:55 35 I&O- Last 24 Hours up to 6 AM 08/07/19 06:00 Intake Total 502.3 ml Output Total 277 ml Balance 225.3 ml GME ATTESTATION GME ATTESTATION My faculty preceptor for this patient encounter was physically present during the encounter and was fully available. All aspects of the patient interview, examination, medical decision making process, and medical care plan development were reviewed and approved by the faculty preceptor. The faculty preceptor is aware and concurs with the plan as stated in the body of this note and will attest to such by his/her cosignature. ATTENDING NOTE I saw the patient with the resident and discussed the plan. I reviewed the resident's documentation and agree with the residents findings and plan [ ] with the following exception(s): [ ] with the following clarification(s): ABEL BRIONES D.O. Aug 07, 2019 16:46 FREDDY AGUILAR MD Aug 14, 2019 09:25
--- NOTE | 2019-08-07 19:49 | IPN ---
DATE: 08/07/2019 Mr. Higgins remains intubated and sedated with propofol today. He is afebrile. He had a CT abdomen and pelvis, which showed pneumoperitoneum. He had an episode of severe hypoglycemia this morning, which was corrected with D50, his glucose was 18. Blood pressure was stable overnight off pressors. He is off dialysis. PHYSICAL EXAM: Pulse 114, blood pressure 122/58, oxygen saturation (O2 sat) 99% on FiO2 of 30%, ventilated. Heart: Normal S1, S2, tachycardiac. No murmurs appreciated. Lungs: Coarse ventilatory sounds with decreased breath sounds at the bases. No wheezes or rhonchi appreciated. Abdomen is soft, distension has decreased. He has decreased bowel sounds, and he has a left lower quadrant colostomy. Extremities: No lower extremity edema. Skin: With dry rash, which has slightly improved, less erythema. Oropharynx. Dry. No palpable adenopathy. LABORATORY: White count is 16, hemoglobin 8.7, hematocrit 27.5, platelets 65. Sodium 141, potassium 3.9, chloride 106, bicarbonate 25, BUN 21, creatinine 1.43, glucose 161, calcium 9.2, phosphorus 4.7, magnesium 2.6, amylase on 08/01 was 123 and lipase was 150. Fungal smears and culture was done from the ET tube is still pending. Sputum cytology shows scattered squamous cells in the background of pulmonary macrophage and abundant neutrophils, and abundant fungal spores are also identified on GMS stain. Hepatitis B and C serology is pending, but 1, 3 D-Glucan is pending from 08/07/2019; 08/02/2019 was 220. Procalcitonin done on 08/06/2019 was 0.4, down from 1.25 on 08/06/2019. CT abdomen and pelvis reviewed showed resolution of prior small bowel obstruction. Pneumoperitoneum is noted. There is an edematous pancreas with peripancreatic fluid, and possible focus of hemorrhage about 2.5 cm in the anterior pancreatic body. Vascular ultrasound showed no evidence of deep vein thrombosis (DVT), and chest x-ray shows blunting of the costophrenic angles, unchanged. No new infiltrates are seen. IMPRESSION: 1. Small bowel obstruction with bowel perforation, now ileus has resolved. On CT, there is evidence of pancreatitis, although his labs do not suggest pancreatitis. Will add a lipase level. 2. Abnormal chest CT with questionable aspiration, probably the patient had aspirated some gastric content or blood that has caused the abnormal CT. The patient has been on IV meropenem since 07/27/2019. He is currently day #10. IV Flagyl was added to cover for double anaerobic coverage, although I do not think this is necessary. 3. Elevated beta D-Glucan with fungal spores noted on sputum cytology. Fungal smear and culture has been sent. I doubt the patient has a fungal pneumonia. PLAN: Discontinue IV Flagyl. I did not see a need for double anaerobic coverage. His procalcitonin has definitely improved from 1.25 to 0.4 on current antibiotic. Decrease the dose of micafungin to 100 mg daily. I doubt the patient has a fungal infection, but will wait for results of repeat beta D-Glucan before discontinuing micafungin. The case has been discussed with Dr. Ho.
--- NOTE | 2019-08-07 20:09 | IPN ---
DATE: 08/07/2019 Events of yesterday have been noted. Essentially when I saw him yesterday morning his abdominal exam was quite benign. His ostomy was functioning and overall appeared to have some significant progression of improvement and I anticipated that he would be extubated and when extubated that we would discuss progression of his diet. However, he underwent a CT scan of his abdomen and pelvis, although I do not see the indication specifically why he underwent this, but in any case, he had undergone the CT scan which showed free air. In retrospect, after evaluating his most recent history, his episode of sepsis and an episode of upper GI bleed all suggesting that he may have developed a perforated ulcer and this would have occurred if we extrapolate back to the time of this; would then right after the episode of his last CT scan about a week ago. His sepsis since that time has improved as well. This would fit much better with a perforated ulcer as the etiology for his ileus that occurred. Unfortunately, he still continues on prednisone which will impair wound healing and overall gastric/gastritis healing issues. However, his OG tube still has not put out any significant bloody discharge and no significant drainage recently. His ostomy still is functioning today and overall his abdomen is less distended today than it was yesterday. All supporting the likelihood that this was something that occurred about a week ago. He did have some fluid in his pelvis on his CT scan. I talked to radiology and asked them if they would feel that some of the fluid could be aspirated and tested for bacteria, etc. and unfortunately they felt that there was not a significant amount and the location was juxta positioned to bowel; that they felt that it would be relatively high risk to drain some ascites fluid in this area. Overall he has been stable from a blood pressure standpoint, stable on the ventilator and no evidence of recurrent sepsis. However, his white count is up. We will have to see what it is tomorrow and if this is up again, will order a CT-guided aspiration of fluid. Also that will better assess his air within his abdominal cavity and if this increasing then we may have to have a more significant discussion with family concerning whether operative intervention is warranted in this extremely high risk individual with platelet dysfunction and anemia, respiratory decline and overall frail status. In any case will see what the followup white count is in the morning, will see how he is doing from a general standpoint and determine our next course of action based on that.
[2019-08-07] MEDS: MICAFUNGIN SODIUM 100 MG in D5W 100 ML IV SCH (21:53)
[2019-08-07] MEDS: MIDAZOLAM INJ 2 MG/2 ML VIAL (J2250) IV PRN (21:56)
--- NOTE | 2019-08-07 22:14 | IPN ---
DATE: 08/07/2019 SUBJECTIVE: Juan was seen and examined this morning at the bedside in the intensive care unit. He remains intubated. He was unable to be extubated yesterday because although he did well with his weaning trial but he had poor mentation. I note the updated CT head. He is for hemodialysis today with goal fluid removal of 2 liters, and he will receive albumin with hemodialysis for hemodynamic support. He has been having some brief episodes of atrial tachycardia. He continues to remain hemodynamically stable off of vasopressors. REVIEW OF SYSTEMS: Unable to obtain secondary to clinical condition. Temperature 98.4, pulse 115, respiratory rate 22, blood pressure 133/61, saturating 99% on ventilator, FiO2 30%. Intake yesterday was 500, goal fluid removal today is 2 liters with dialysis. Weight in the bed scale today is 80.4 kg. General: The patient is seen, intubated and sedated in the intensive care unit, noted to be spontaneously moving extremities but does not follow any commands. Pupils are reactive to light. Neck is supple. There is a central line present in the right internal jugular (IJ). Cardiac: Regular rate and rhythm. Tachycardiac. Lungs sounds are coarse but no crackle or rale. Abdomen is soft. There is a colostomy present with some soft stool in the bag. Extremities are negative for edema. Genitourinary: Shows Davila catheter with a temperature probe and very little urine in the bag. LABORATORY: White count 16.2, hemoglobin 8.7, platelets 65, sodium 141, potassium 3.9, pH 7.43. IMAGING: Chest x-ray showed mild pulmonary vascular congestion. Head CT yesterday showed normal medial right occipital infarct and chronic microangiopathic changes. CT abdomen and pelvis yesterday showed small pleural effusions bilaterally and a small volume of abdominopelvic free fluid. ASSESSMENT/PLAN: Problems: 1. Recurrent oligo-anuric renal failure. The patient remains off of Levophed pressor support. His continuous veno-venous hemodiafiltration (CVVHDF) was discontinued yesterday morning. His imaging shows ongoing mild pulmonary vascular congestion. He has not had significant intake over the past day. His central venous pressure (CVP) was around 9 this morning. He was dialyzed this afternoon in the intensive care unit with albumin support, and we were able to remove 2 liters. His next hemodialysis treatment will be on . There are no signs of renal recovery. 2. Ventilator dependent respiratory failure. The patient did well with his weaning trial yesterday but apparently was not extubated because of poor mentation. Imaging showed some mild pulmonary vascular congestion and small pleural effusions. We were able to remove 2 liters today with hemodialysis. He will be dialyzed again on for ongoing management of his volume status. 3. Diastolic congestive heart failure. Volume status appears fairly reasonable and continue with intermittent hemodialysis three times weekly. His intake is not much at present, but given that he recently did come off of pressors, we did give him albumin with dialysis to help with the ability to remove fluid. LALO
[2019-08-08] VITALS (28 sets, daily range): BP systolic 101–155; BP diastolic 54–76; O2SAT 96–98
[2019-08-08] MEDS: DIMETHICONE 2% OINTMENT(VANIPLY) 70GM TUBE TOP SCH ×5 (00:09→23:52)
[2019-08-08] MEDS: HumaLOG INSULIN (NovoLOG) PER UNIT SC SCH ×5 (00:18→23:51)
[2019-08-08] MEDS: SUCRALFATE SUSP 1GM/10ML UD PO SCH ×3 (00:20→11:05)
[2019-08-08] MEDS: fentaNYL 100 MCG/2 ML INJECTION (J3010) IV PRN (00:20)
[2019-08-08] MEDS: IPRATROPIUM 0.5MG/ALBUTEROL 2.5MG INH SOL UD 3ML (DUONEB)(J7620) NEB SCH ×4 (00:49→20:05)
[2019-08-08] MEDS: metroNIDAZOLE 500 MG in IV 1 EA IV SCH (02:18)
[2019-08-08] MEDS: AMIODARONE HCL 360 MG in IV 1 EA IV SCH (03:34)
[2019-08-08] MEDS: ACETAMINOPHEN TAB 650MG DOSE (2X325MG) NG PRN (03:43)
[2019-08-08] MEDS: propofoL 1,000 MG in IV 1 EA IV SCH ×2 (03:47→07:36)
[2019-08-08 04:47] LABS: HEMATOCRIT 25.8 % (42.0-52.0); MEAN CORPUSCULAR HEMOGLOBIN 29.7 pg (27.0-33.0); MEAN CORPUSCULAR VOLUME 95.9 fl (80.0-96.0); RED BLOOD COUNT 2.69 10^6/uL (4.30-6.10); WHITE BLOOD COUNT 13.9 10^3/uL (4.0-10.0)
[2019-08-08 04:52] LABS: PLATELET COUNT, AUTOMATED 67 10^3/uL (150-450)
[2019-08-08 05:23] LABS: BLOOD UREA NITROGEN 12 MG/DL (7-18); CALCIUM LEVEL 8.9 MG/DL (8.8-10.2); CARBON DIOXIDE LEVEL 27 MEQ/L (21-32); CHLORIDE LEVEL 103 MEQ/L (98-107); CREATININE FOR GFR 1.12 MG/DL (0.70-1.30); GLOMERULAR FILTRATION RATE > 60.0 (>42); GLUCOSE, FASTING 144 MG/DL (70-100); LIPASE 127 U/L (73-393); SODIUM LEVEL 139 MEQ/L (136-145)
[2019-08-08 06:20] LABS: ABG BASE EXCESS 1.8 (-2.0-2.0); ABG HCO3 25.6 MEQ/L (22.0-26.0); ABG O2 SATURATION 98.7 % (95.0-99.0); ABG PARTIAL PRESSURE CO2 36.4 mmHg (35.0-45.0); ABG PARTIAL PRESSURE O2 117.4 mmHg (75.0-100.0); ABG STANDARD HCO3 26.1 MEQ/L (22.0-26.0); ABG TOTAL CO2 26.7 MEQ/L (23.0-31.0); ABG pH (ARTERIAL) 7.465 UNITS (7.350-7.450)
[2019-08-08] MEDS: MEROPENEM INJ 1 GM in IV 1 EA IV SCH ×2 (07:35→19:45)
[2019-08-08] MEDS: MIDAZOLAM INJ 2 MG/2 ML VIAL (J2250) IV PRN (07:54)
--- NOTE | 2019-08-08 07:57 | REP ---
Portable chest x-ray: Single view. History: Respiratory failure. Comparison study: August 07, 2019. Findings: NG tube enters left upper quadrant. Endotracheal tube is seen in good position just above the transverse aorta. Or there are bilateral internal jugular central venous lines unchanged from previous day. There is slight blunting of the left lateral pleural angle. The patient is rotated to the left for the current exposure. There are are old healed rib fractures on the right posteriorly. There is some free intraperitoneal air under the right hemidiaphragm as seen on recent study abdomen August 06, 2019. Electronically Signed by Rodolfo Chester MD 08/08/2019 07:48 A
[2019-08-08] MEDS: HYDROCORTISONE 100 MG/2 ML VIAL (J1720 PER 1) IV SCH ×2 (09:09→21:29)
[2019-08-08] MEDS: DOCUSATE SOD LIQ 100MG/10ML UDC GT SCH (09:10)
[2019-08-08] MEDS: CHLORHEXIDINE GLUCONATE 0.12 % 15ML UDC (PERIDEX ORAL RINSE) MT SCH ×2 (09:10→21:29)
[2019-08-08] MEDS: propylthiouraciL 50 MG TAB PO SCH ×2 (09:10→20:38)
[2019-08-08] MEDS: PANTOPRAZOLE 40MG INJ (PROTONIX) (C9113) IV SCH ×2 (09:10→21:29)
[2019-08-08] MEDS: TRIAMCINOLONE ACET 0.1% OINTMENT 15 GM TOP SCH ×2 (09:11→21:29)
[2019-08-08] MEDS: VANICREAM MOISTURIZING SKIN CREAM 113GM TUBE TOP SCH ×2 (09:12→21:30)
--- NOTE | 2019-08-08 10:28 | IPN ---
DATE OF SERVICE: 08/08/2019 The patient's white count did drop a little bit today to 13.9. His hematocrit is slightly decreased today, though platelet count is stable. He underwent hemodialysis yesterday and tolerated this without significant hypotensive episodes per the vital sign report. Otherwise, he continues to have some sort of encephalopathy that is ongoing; and from a surgical standpoint, he does have response to pain but is a difficult examination at best. His temperature has been a low-grade temperature at 99.6 as his maximum temperature (Tmax) earlier this morning. His blood pressure has been stable, and he has been persistently tachycardiac. However, this is not any more significant than it has been for many days. His physical examination shows a nondistended abdomen. No significant peritoneal signs are appreciated. His ostomy is pink and clean. He has some minimal air within the bag. He is nontender around the ostomy itself and is reducible around the parastomal area. IMPRESSION AND PLAN: From a surgical standpoint, it appears that the patient probably had a perforated ulcer as the most likely etiology and why the patient has not developed ongoing sepsis from the such as a gram negative infection from large bowel or a small bowel perforation with bacterial overgrowth situation. In any case at this point, given that it is many days out from a possible perforation, I would recommend that we keep him nothing by mouth for right now. Will continue with supportive care and will watch his white count. If his white count bumps up tomorrow, then I would recommend a repeat CAT scan to see if there is a developing abscess, number one, or to see if he has increasing air within his abdomen. If there is increasing air, we may need to consider more interventional procedures. In any case at this point, I would recommend continued nothing by mouth and supportive care in this extremely high-risk poor operative candidate.
[2019-08-08 11:02] LABS: ABG BASE EXCESS 1.6 (-2.0-2.0); ABG HCO3 25.6 MEQ/L (22.0-26.0); ABG O2 SATURATION 96.4 % (95.0-99.0); ABG PARTIAL PRESSURE CO2 37.9 mmHg (35.0-45.0); ABG STANDARD HCO3 25.9 MEQ/L (22.0-26.0); ABG TOTAL CO2 26.8 MEQ/L (23.0-31.0); ABG pH (ARTERIAL) 7.448 UNITS (7.350-7.450)
--- NOTE | 2019-08-08 11:54 | IPNPDOC ---
Subjective Date Seen The patient was seen on 08/08/19. Subjective Chief Complaint/HPI Patient then intubated, in no apparent distress, comfortable General: Reports: ROS Unobtainable Objective Physical Examination Chest Exam: Positive: Clear to auscultation, Normal air movement Heart Exam: Positive: Rate Normal, Normal S1, Normal S2 Abdomen Exam: Positive: Normal bowel sounds, Soft, Other (no tenderness around his stoma) Extremity Exam: Positive: Normal pulses Skin Exam: Positive: Nl turgor and temperature Assessment /Plan Problems (1) Acute respiratory failure Status: Acute Problem Text: Reintubated, likely due to aspiration of gastric contents and Ativan given for [place] catheter placement, did well on pressure support trial but concern is high for inability to protect his airway and reintubation. CT head negative for acute pathology, on Propofol and fentanyl for sedation. Possible Tracheostomy & PEG placement. Critical care on the consult And settings as per critical care recommendations (2) Sepsis Status: Resolved Problem Text: Unknown etiology, likely GI source, CT abdomen and pelvis showing pneumoperitoneum, likely from microperforation, clinically improving, no need for acute surgical intervention at this time, plan for IR drainage of peritoneal fluid to rule out infection. Continue with Merrem and micafungin, [id number] levels elevated, will repeat [id number] & Procal, ID was reconsulted, sputum cultures & sputum cytology to assess for PCP pending, blood cultures negative. Hydrocortisone decreased to 50 mg every 12 hours (3) Perforated duodenal ulcer Status: Acute Problem Text: Possible perforated duodenal ulcer for with self addition to the surrounding visrae with Possible GI bleed status post 3 unit of packed red blood cells total, H&H has since been stable, no longer having any output from NG tube, no immediate plan for EGD, continue Protonix 40 mg twice a day, Carafate 1 g every 6 hours, further transfusion as needed to maintain hemoglobin greater than 8. (4) Atrial fibrillation Status: Chronic Problem Text: Having intermittent episodes of A. fib with RVR, not an ideal candidate for anticoagulation given recent GI bleed and bowel perforation, amiodarone started for rate control. (5) IRMA (acute kidney injury) Status: Acute Problem Text: Acute on chronic kidney disease. Renal function has profoundly worsened, likely due to septic shock, minimal urine output, nephrology was reconsulted, CRRT has been discontinued. (6) Diabetes mellitus Status: Chronic Problem Text: Fingerstick blood sugar with coverage Plan/VTE VTE Prophylaxis Ordered?: Yes VS, I&O, 24H, Fishbone Vital Signs/I&O Vital Signs Date Time Temp Pulse Resp B/P (MAP) Pulse Ox O2 Delivery O2 Flow Rate FiO2 08/08/19 10:00 18 30 08/08/19 09:00 119 137/63 (87) 98 Ventilator 08/08/19 08:00 99.1 08/03/19 07:55 35 I&O- Last 24 Hours up to 6 AM 08/08/19 05:59 Intake Total 1362.0 ml Output Total 2250 ml Balance -888.0 ml Laboratory Data 24H LABS Laboratory Tests 2 08/07/19 12:11: Bedside Glucose (Misc Panel) 149H 08/07/19 14:05: 08/07/19 16:55: Bedside Glucose (Misc Panel) 112H 08/08/19 00:13: Bedside Glucose (Misc Panel) 172H 08/08/19 04:35: Nucleated Red Blood Cells % (auto) 0.1H, Anion Gap 9, Glomerular Filtration Rate > 60.0, Calcium Level 8.9, Phosphorus Level 3.0#, Magnesium Level 2.0, Lipase 127 08/08/19 05:52: Blood Gas Bicarbonate Standard 26.1H, Arterial Blood pH 7.465H, Arterial Blood Partial Pressure CO2 36.4, Arterial Blood Partial Pressure O2 117.4H, Arterial Blood Total CO2 26.7, Arterial Blood HCO3 25.6, Arterial Blood Base Excess 1.8, Arterial Blood Oxygen Saturation 98.7 08/08/19 05:53: Bedside Glucose (Misc Panel) 137H 08/08/19 10:48: Blood Gas Bicarbonate Standard 25.9, Arterial Blood pH 7.448, Arterial Blood Partial Pressure CO2 37.9, Arterial Blood Partial Pressure O2 86.0, Arterial Blood Total CO2 26.8, Arterial Blood HCO3 25.6, Arterial Blood Base Excess 1.6, Arterial Blood Oxygen Saturation 96.4 08/08/19 10:52: Bedside Glucose (Misc Panel) 111H CBC/BMP Laboratory Tests 08/08/19 04:35 Microbiology Microbiology 08/06/19 Fungal Smear, Received Pending 08/06/19 Fungal Culture, Received Pending 08/01/19 Blood Culture - Final, Complete NO GROWTH AFTER 5 DAYS 08/01/19 Blood Culture - Final, Complete NO GROWTH AFTER 5 DAYS 08/01/19 Blood Culture - Final, Complete NO GROWTH AFTER 5 DAYS SO MORALES MD Aug 08, 2019 11:54
[2019-08-08] MEDS ORDERED: DARBEPOETIN 100 MCG/0.5 ML *DIALYSIS* SYRINGE (J0882) IV SCH (12:00)
[2019-08-08 13:46] LABS: HEPATITIS B CORE ANTIBODY IGM NEGATIVE (NEGATIVE); HEPATITIS B SURFACE ANTIBODY NEGATIVE (POSITIVE); HEPATITIS B SURFACE ANTIGEN NEGATIVE (NEGATIVE); HEPATITIS C VIRUS ABY INDEX < 0.0 INDEX (<0.8)
--- NOTE | 2019-08-08 14:15 | IPN ---
DATE OF SERVICE: 08/08/2019 Juan is seen and examined this morning at the bedside in the intensive care unit. He is having a C-PAP trial. He has been on it for the past 30 minutes. He tolerated hemodialysis yesterday with 2 liters of fluid removed with albumin support. His CVP this morning is 12. Review of systems is unable to be obtained secondary to clinical condition. Vital Signs: Temperature 99.1, pulse 119, respiratory rate 22, blood pressure 112/55, saturating 98% on 30% FiO2. Review of ins and outs shows he is net negative 1 liter in the past 24 hours. Weight in the bed scale today is 80.5 kg. General: The patient is seen, intubated, but awake on C-PAP trial. Does not make eye contact. Neck is supple. There are bilateral central lines present. Jugular veins look mildly elevated. Heart sounds are regular. S1, S2, and tachycardiac. There is only trace edema in the thighs. Lungs show symmetric air entry and no crackles or rales. The abdomen is soft. There is an ostomy in the left side which is pink and clean and has some air in the bag. Genitourinary: Shows Davila catheter with minimal urine. Extremities show trace edema at the thigh. Skin: Normal turgor and temperature. LABS: White count 13.9, hemoglobin 8.0, platelets 67, sodium 139, potassium 4.0, bicarbonate 27, phosphorus 2.0. IMAGING STUDIES: Chest x-ray today with slight blunting of the left lateral angle. INPATIENT MEDICATIONS: Reviewed by myself. She continues on meropenem 1 gram IV twice daily and micafungin 100 mg IV daily. His hydrocortisone is 50 mg IV twice daily. The remainder of medications are unchanged as compared to previous days. PROBLEMS: 1. Recurrent oligo-anuric renal failure. He remains off of pressor support. He was hemodialyzed yesterday for 3-1/2 hours with 2 liters of fluid removed with albumin for blood pressure support. He is net negative 1 liter in the past day. He is tolerating a C-PAP trial. His CVP is 12. His next dialysis treatment will be on and we will most likely use albumin again for blood pressure support. There are no signs of renal recovery. 2. Ventilator dependent respiratory failure. He has been doing well with weaning trials, but has had issues with mentation. He had been on C-PAP for about half an hour when I saw him this morning. His volume status was fairly reasonable. He is net negative 1 liter in the past 24 hours. We will continue to try and keep him on the dry side, hopefully, he can be extubated soon. 3. Diastolic congestive heart failure. Volume status is regulated via hemodialysis. Next dialysis treatment will be on . Given that he recently came off of pressors, we are giving him albumin with dialysis to help augment fluid removal. 4. Anemia with recent GI bleed and thrombocytopenia as well and also complicated by renal failure. Status post 5 units PRBC on this admission. I am starting him on Aranesp with dialysis.
[2019-08-08 14:49] LABS: ABG BASE EXCESS 0.1 (-2.0-2.0); ABG HCO3 24.6 MEQ/L (22.0-26.0); ABG O2 SATURATION 99.3 % (95.0-99.0); ABG PARTIAL PRESSURE O2 148.9 mmHg (75.0-100.0); ABG STANDARD HCO3 24.6 MEQ/L (22.0-26.0); ABG TOTAL CO2 25.8 MEQ/L (23.0-31.0); ABG pH (ARTERIAL) 7.417 UNITS (7.350-7.450)
--- NOTE | 2019-08-08 17:05 | CCN ---
DATE: 08/08/2019 The patient was seen and examined this morning during bedside rounds. Patient was noted to be in new onset of atrial tachycardia yesterday and was started on amiodarone for IV loading. His heart rate has improved with the amiodarone as he has been in sinus tachycardia overnight with heart rates mostly in one-teens and has not had the frequent increasing heart rates into the 140s or 150s that he previously was. The patient was able to tolerate regular hemodialysis with fluid removal yesterday. He did receive albumin to help with blood pressure support during dialysis. This morning, the patient had a sedation vacation performed and he appears to be more responsive. He was able to shake and nod his head to questions appropriately which he was not doing previously. He has a diminished gag reflex but there is a mild one present currently. PHYSICAL EXAMINATION: T-max 99.5, pulse 112, respirations 18, blood pressure was 105/55, O2 sat 98% on 30% FiO2, ins 1.3, out 2.2 liters. General: Patient is intubated and is off of sedation currently. He is able to answer questions, nodding and shaking his head appropriately. He is still somewhat agitated and moving extremities but appears to be more awake and tracking. HEENT: Normocephalic, atraumatic. Pupils reactive to light bilaterally. There is moist mucous membranes. Neck is supple. Trachea is midline. There is no palpable cervical adenopathy. The patient today has a diminished gag reflex which is improved from previous. Cardiac: Tachycardic, regular rhythm. Normal S1, S2. Slight systolic murmur. Pulmonary: Coarse breath sounds bilaterally with slightly diminished breath sounds at the bases, but no wheezing or rhonchi. Abdomen: Soft with mild tenderness to palpation, but improved distension. 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 Extremities: There is no significant lower extremity edema noted bilaterally. Skin: The patient has a dry exfoliative erythrodermatous rash which appears improved. LABORATORY DATA WBC 13.9, hemoglobin 8.0, platelet 67. Chemistry: Sodium 139, potassium 4.0, chloride 103, bicarb 27, BUN 12, creatinine 1.12, glucose 114. Procalcitonin trending down to 0.40. Lipase 127. ABG: pH 7.465, pCO2 of 36.4, pO2 of 117.4. Sputum cytology shows fungal spores. Chest x-ray shows ET tube in good position. OG tube entering below the diaphragm. The patient has a right subclavian hemodialysis catheter and a left IJ triple lumen catheter. The patient has slight blunting of the left lateral pleural angle. There is some free intraperitoneal air under the right diaphragm. Lower extremity duplex negative for DVT in the bilateral lower extremities. ASSESSMENT AND PLAN: Mr. Higgins is a 74-year-old male with history of diabetes, hypertension, chronic obstructive pulmonary disease (COPD), chronic kidney disease (CKD), who has had a prolonged and complicated hospitalization. The patient presented in the beginning of July where he was intubated for acute respiratory failure in the setting of septic shock. He also had acute renal failure, requiring continuous veno-venous hemodialysis (CVVHD). The patient was extubated and weaned off of pressors and downgraded to the floors. He was then noted have worsening mental status and agitation with increased abdominal distension and leukocytosis. The patient was intubated again for acute respiratory failure secondary to his ileus and possible aspiration. He was also in septic shock, likely secondary to a bowel perforation from his obstruction and upper GI bleed. 1. Acute respiratory failure in the setting of shock secondary to acute GI bleed as well as septic shock. The patient also with possible aspiration pneumonia as well as some pulmonary edema based on his initial an imaging when he was reintubated - The patient this morning is on mechanical ventilation with volume control settings of 420/18/30 and 5. He appears to be more awake with a sedation vacation today and he is nodding and shaking his head appropriately to questions which he was previously not doing. He also appears to be tracking. The patient has a diminished gag reflex today but this is improved compared to previous. - The patient was on a pressure support weaning trial and his ABG was acceptable. He also tolerated a C-PAP trial well in terms of his tidal volume and respiratory rate. He was also hemodynamically stable during his weaning trial. The patient was therefore extubated to humidified oxygen supplementation. - Will repeat an ABG this afternoon to monitor for any hypercarbia or hypoxia. - The patient will need to be continued with head of bed elevation as well as with aspiration precautions as he is still at risk for aspiration and potential decompensation of his respiratory status requiring reintubation. The patient has had two intubations during this hospitalization already and if he were to have a third intubation would need to discuss potential tracheostomy at that time for chronic respiratory failure and inability to protect his airway. - DC propofol, Versed and fentanyl. 2. Sepsis secondary to GI source as well as possible aspiration pneumonia. The patient had a CT abdomen and pelvis which showed evidence of perforation with pneumoperitoneum which was not seen on his previous CT abdomen. He also had an acute GI bleed initially and so he likely had a perforation secondary to a bleeding ulcer. The patient then with peritonitis contributing to his septic shock. He appears to be improved clinically as he has been off of pressors. Suspect his perforation has healed at this time. - Appreciate infectious disease (ID) consult and recommendations. Will continue with meropenem for now. His repeat procalcitonin has trended down. Will DC his Flagyl then. Will continue with micafungin as he does have cultures previously showing mirela in urine as well as having fungal organisms in his sputum. He likely had colonization with mirela in his esophagus as well and may have had some fungemia when he had his acute perforation and peritonitis. - Will followup final results of his sputum cultures and fungal cultures. - Continue hydrocortisone, he was weaned down to 50 every 12 hours yesterday and will continue weaning as tolerated. 3. Acute renal failure. - The patient appears to have chronic renal failure at this time without any evidence of recovery. He appears to be dialysis dependent to help manage his fluid status. He did tolerate regular hemodialysis yesterday with albumin supplementation and he is due for repeat dialysis on as per renal. - Continue to follow renal recommendations. Appreciate their consult. 4. Acute GI bleed with ileus. - The patient had a repeat CT abdomen and pelvis which showed evidence of pneumoperitoneum as well as some free fluid in the pelvis. Patient likely had a perforation possibly from a bleeding ulcer with his initial upper GI bleed as well as with his bowel obstruction. - Appreciate surgery consult and their recommendations. He had attempted to get a bedside ultrasound and drainage of the fluid in his pelvis which was unable to be performed as he did not have enough fluid visually on the bedside ultrasound. - Will continue monitor for now. His leukocytosis appears to be improving and his abdominal distension also appears to be improving. - The patient is still nothing by mouth (npo). His OG tube was removed after his extubation and an NG tube was unable to be placed successfully. - Will continue to monitor H and H and transfuse hemoglobin and platelets as needed. He is going to be started on Aranesp for his chronic anemia. 5. Atrial tachycardia. - The patient was started on amiodarone IV loading for his episodes of atrial tachycardia, which is new. After he completes IV amio load will continue with IV amio for rate control. - The patient is unable to be anticoagulated due to his recent GI bleed. - His lower extremity duplex was negative for DVT bilaterally. 6. DVT prophylaxis. Thromboembolism deterrents (TEDs) and Sequential compression devices (SCDs). 7. GI prophylaxis, PPI. 8. Code status. FULL CODE. Total critical care time spent not including any procedures approximately 45 minutes.
[2019-08-08] MEDS: AMIODARONE HCL IV SCH (17:55)
[2019-08-08] MEDS: MICAFUNGIN SODIUM 100 MG in D5W 100 ML IV SCH (21:29)
[2019-08-08] MEDS ORDERED: AMIODARONE HCL 150 MG in IV 1 EA IV ONE (23:45)
[2019-08-09] VITALS (21 sets, daily range): BP systolic 111–149; BP diastolic 56–72; O2SAT 100
[2019-08-09] MEDS: AMIODARONE HCL IV SCH ×3 (01:42→16:33)
[2019-08-09] MEDS: IPRATROPIUM 0.5MG/ALBUTEROL 2.5MG INH SOL UD 3ML (DUONEB)(J7620) NEB SCH ×4 (01:44→20:30)
[2019-08-09] MEDS: DIMETHICONE 2% OINTMENT(VANIPLY) 70GM TUBE TOP SCH ×3 (05:11→18:22)
[2019-08-09 05:31] LABS: HEMATOCRIT 31.6 % (42.0-52.0); HEMOGLOBIN 9.6 g/dl (13.5-17.5); MEAN CORPUSCULAR HGB CONC 30.4 g/dl (32.0-36.5); MEAN CORPUSCULAR VOLUME 95.5 fl (80.0-96.0); RED BLOOD COUNT 3.31 10^6/uL (4.30-6.10); WHITE BLOOD COUNT 11.8 10^3/uL (4.0-10.0)
[2019-08-09 05:33] LABS: PLATELET COUNT, AUTOMATED 81 10^3/uL (150-450)
[2019-08-09 05:43] LABS: CALCIUM LEVEL 9.7 MG/DL (8.8-10.2); CREATININE FOR GFR 1.43 MG/DL (0.70-1.30); GLOMERULAR FILTRATION RATE 51.6 (>42); MAGNESIUM LEVEL 1.8 MG/DL (1.8-2.4); PHOSPHORUS LEVEL 3.4 MG/DL (2.5-4.9); POTASSIUM SERUM 3.5 MEQ/L (3.5-5.1)
[2019-08-09 05:50] LABS: ABG pH (ARTERIAL) 7.461 UNITS (7.350-7.450)
[2019-08-09 05:51] LABS: ABG HCO3 21.1 MEQ/L (22.0-26.0); ABG O2 SATURATION 93.4 % (95.0-99.0); ABG PARTIAL PRESSURE CO2 30.3 mmHg (35.0-45.0); ABG PARTIAL PRESSURE O2 65.4 mmHg (75.0-100.0); ABG STANDARD HCO3 22.7 MEQ/L (22.0-26.0)
[2019-08-09] MEDS: HumaLOG INSULIN (NovoLOG) PER UNIT SC SCH ×3 (05:56→18:00)
[2019-08-09] MEDS: MEROPENEM INJ 1 GM in IV 1 EA IV SCH (08:41)
[2019-08-09] MEDS: propylthiouraciL 50 MG TAB PO SCH ×2 (09:00→21:00)
[2019-08-09] MEDS: DOCUSATE SOD LIQ 100MG/10ML UDC PO SCH ×2 (09:00→21:00)
[2019-08-09] MEDS: SENNA 8.6 MG TAB (SENOKOT) PO SCH ×2 (09:00→21:00)
[2019-08-09] MEDS: CHLORHEXIDINE GLUCONATE 0.12 % 15ML UDC (PERIDEX ORAL RINSE) MT SCH ×2 (09:37→21:30)
[2019-08-09] MEDS: PANTOPRAZOLE 40MG INJ (PROTONIX) (C9113) IV SCH ×2 (09:38→21:29)
[2019-08-09] MEDS: TRIAMCINOLONE ACET 0.1% OINTMENT 15 GM TOP SCH ×2 (09:39→21:30)
[2019-08-09] MEDS: HYDROCORTISONE 100 MG/2 ML VIAL (J1720 PER 1) IV SCH (09:40)
[2019-08-09] MEDS ORDERED: HEPARIN 1,000 UNITS/ML 10ML VIAL (FOR RADIOLOGY& DIALYSIS ONLY) XX ONE (10:45)
[2019-08-09] MEDS: FUROSEMIDE 100 MG/10 ML VIAL (J1940) IV SCH ×2 (11:02→16:34)
--- NOTE | 2019-08-09 11:26 | REP ---
Portable chest x-ray: Single view. History: Respiratory failure. Comparison study August 08, 2019. Findings: A right internal jugular central venous line terminates in the expected location of the superior vena cava. EKG electrodes are seen. The left hemidiaphragm is somewhat elevated. The nasogastric and endotracheal tubes have been removed. There are some increased markings in the left base obscuring left hemidiaphragm today. This may reflect atelectasis or small amount of effusion. Today's views exposed at a somewhat lesser level of inspiration. Electronically Signed by Rodolfo Chester MD 08/09/2019 07:55 A
--- NOTE | 2019-08-09 11:52 | IPNPDOC ---
Subjective Date Seen The patient was seen on 08/09/19. Subjective Chief Complaint/HPI Patient is extubated. He was supposed to simple questions General: Denies: ROS Unobtainable, Chills, Night Sweats, Fatigue, Malaise, Normal Appetite, Other Symptoms Constitutional: Denies: Chills, Fever, Malaise, Night Sweats, Weakness, Fatigue, Weight Loss, Lethargy, Other Pulmonary: Denies: Dyspnea, Cough, Pleuritic Chest Pain, Other Symptoms Cardiovascular: Denies: Chest Pain, Palpitations, Orthopnea, Paroxysmal Noc. Dyspnea, Edema, Lt Headedness, Other Symptoms Gastrointestinal: Denies: Nausea, Vomiting, Abdominal Pain, Diarrhea, Constipation, Melena, Hematochezia, Other Symptoms Musculoskeletal: Denies: Neck Pain, Back Pain, Shoulder Pain, Arm Pain, Hand Pain, Leg Pain, Foot Pain, Joint Pain, Muscle Pain, Spasms, Other Symptoms Neurological: Denies: Weakness, Numbness, Incoordination, Change in speech, Confusion, Seizures, Other Symptoms Objective Physical Examination General Exam: Positive: Alert, Cooperative Neck Exam: Positive: Supple Chest Exam: Positive: Clear to auscultation, Normal air movement Heart Exam: Positive: Rate Normal, Normal S1, Normal S2 Abdomen Exam: Positive: Normal bowel sounds, Soft, Other (no tenderness around his stoma) Extremity Exam: Positive: Normal pulses Skin Exam: Positive: Nl turgor and temperature Neuro Exam: Positive: Strength at 5/5 X4 ext, Sensation Intact, Cranial Nerves 3-12 NL Assessment /Plan Problems (1) Acute respiratory failure Status: Acute Problem Text: Patient expected yesterday after he was reintubated secondary to aspiration Aspiration was likely due to gastric contents and Ativan given for [place] catheter placement, did well on pressure support trial but concern is high for inability to protect his airway and reintubation. CT head negative for acute pathology, on Propofol and fentanyl for sedation. Possible Tracheostomy & PEG placement. Critical care on the consult Swallow eval ordered today Patient will probably need a PEG tube for long-term care (2) Sepsis Status: Resolved Problem Text: Unknown etiology, likely GI source, CT abdomen and pelvis showing pneumoperitoneum, likely from microperforation, clinically improving, no need for acute surgical intervention at this time, plan for IR drainage of peritoneal fluid to rule out infection. Continue with Merrem and micafungin, [id number] levels elevated, will repeat [id number] & Procal, ID was reconsulted, sputum cultures & sputum cytology to assess for PCP pending, blood cultures negative. Hydrocortisone decreased to 50 mg every 12 hours, CBC, CMP in a.m. (3) Perforated duodenal ulcer Status: Acute Problem Text: Possible perforated duodenal ulcer for with self addition to the surrounding visrae with Possible GI bleed status post 3 unit of packed red blood cells total, H&H has since been stable, no longer having any output from NG tube, no immediate plan for EGD, continue Protonix 40 mg twice a day, Carafate 1 g every 6 hours, further transfusion as needed to maintain hemoglobin greater than 8. (4) Atrial fibrillation Status: Chronic Problem Text: Having intermittent episodes of A. fib with RVR, not an ideal candidate for anticoagulation given recent GI bleed and bowel perforation, amiodarone started for rate control. (5) IRMA (acute kidney injury) Status: Acute Problem Text: Acute on chronic kidney disease. Renal function has profoundly worsened, likely due to septic shock, minimal urine output, nephrology was reconsulted, CRRT has been discontinued. (6) Diabetes mellitus Status: Chronic Problem Text: Fingerstick blood sugar with coverage Plan/VTE VTE Prophylaxis Ordered?: Yes VS, I&O, 24H, Fishbone Vital Signs/I&O Vital Signs Date Time Temp Pulse Resp B/P (MAP) Pulse Ox O2 Delivery O2 Flow Rate FiO2 08/09/19 10:00 125 22 119/64 (82) 91 Room Air 08/09/19 08:00 99.1 08/08/19 16:00 30 08/08/19 16:00 1.0 I&O- Last 24 Hours up to 6 AM 08/09/19 05:59 Intake Total 534.7 ml Output Total 395 ml Balance 139.7 ml Laboratory Data 24H LABS Laboratory Tests 2 08/08/19 14:38: Blood Gas Bicarbonate Standard 24.6, Arterial Blood pH 7.417, Arterial Blood Par tial Pressure CO2 39.0, Arterial Blood Partial Pressure O2 148.9H, Arterial Blood Total CO2 25.8, Arterial Blood HCO3 24.6, Arterial Blood Base Excess 0.1, Arterial Blood Oxygen Saturation 99.3H 08/08/19 17:50: Bedside Glucose (Misc Panel) 143H 08/08/19 23:50: Bedside Glucose (Misc Panel) 119H 08/09/19 05:08: Nucleated Red Blood Cells % (auto) 0.2H, Immature Platelet Fraction 9.8, Anion Gap 12, Glomerular Filtration Rate 51.6, Calcium Level 9.7, Phosphorus Level 3.4, Magnesium Level 1.8 08/09/19 05:26: Blood Gas Bicarbonate Standard 22.7, Arterial Blood pH 7.461H, Arterial Blood Partial Pressure CO2 30.3L, Arterial Blood Partial Pressure O2 65.4L, Arterial Blood Total CO2 22.0L, Arterial Blood HCO3 21.1L, Arterial Blood Base Excess - 2.0, Arterial Blood Oxygen Saturation 93.4L 08/09/19 11:44: Bedside Glucose (Misc Panel) 78L CBC/BMP Laboratory Tests 08/09/19 05:08 Microbiology Microbiology 08/06/19 Fungal Smear, Received Pending 08/06/19 Fungal Culture, Received Pending 08/01/19 Blood Culture - Final, Complete NO GROWTH AFTER 5 DAYS 08/01/19 Blood Culture - Final, Complete NO GROWTH AFTER 5 DAYS 08/01/19 Blood Culture - Final, Complete NO GROWTH AFTER 5 DAYS SO MORALES MD Aug 09, 2019 11:52
[2019-08-09] MEDS: VANICREAM MOISTURIZING SKIN CREAM 113GM TUBE TOP SCH ×2 (13:23→21:29)
--- NOTE | 2019-08-09 13:58 | IPN ---
DATE OF SERVICE: 08/09/2019 SUBJECTIVE: Juan is seen and examined this morning at the bedside in the intensive care unit. He was extubated. He is seen on room air. I found him to be confused. He repeatedly stated that he needed to go to [facility]. He has been persistently tachycardiac. He is nothing by mouth and has had fairly equivalent fluid balance in the past 24 hours. He denies shortness of breath at rest. He has been afebrile. Temperature 99.1, pulse 125, respiratory rate 20, blood pressure 122/59, saturating 92% on room air. Review of intake and output (I and O) yesterday shows intake 530, urine output 318, positive 210, weight in the bed scale today is 79.5 kg. General: The patient is seen sitting in bed in the intensive care unit, awake, alert but not oriented. Head of the bed is elevated. He is disheveled. Follow some commands and answers only some questions appropriately. He makes eye contact. Dentition is poor. Neck is supple. Jugular veins are not elevated. There is a temporary dialysis catheter in the right internal jugular (vein) (IJ). Heart sounds are tachycardiac, irregular, S1, S2, trace edema in the thighs. Lungs show symmetric air entry. No wheeze or rhonchi. Abdomen is soft, and there is an ostomy in the left with some stool and also a little bit of blood in the bag. Genitourinary: Shows Davila catheter with some urine. Extremities are negative for edema in the peripheries and at most there is trace in the dependent areas. Neurologic: He squeezed hands on command, wiggled toes on command but is unable to tell me where he is and insists that he needs to go to [facility]. LABORATORIES: White count 11.8, hemoglobin 9.6, platelet 81. Sodium 140, potassium 3.5, bicarbonate 24. Chest x-ray today. Increased markings in the left base. INPATIENT MEDICATIONS: I started him on Lasix 60 mg twice daily. He continues on amiodarone 100 mg intravenous (IV) every 8 hours. Micafungin 100 mg IV daily. Remainder of medications are unchanged as compared to yesterday. PROBLEMS: 1. Oligoanuric recurrent acute renal failure. The patient remains on dialysis-dependent. The urine output in the past 24 hours was about 300 mL. He remains off of pressors. He had hemodialysis on Tuesday with 2 liters off. However, he has been extubated. He is nothing by mouth. He has minimal input. I am going to dialyze him today for clearance only without fluid removal. I am going to continue to use albumin with dialysis given his significant tachycardia and hemodynamic stress associated with dialysis treatments. We will use a low blood flow of 300 mL. There are no signs of renal recovery. However, I am going to start him on Lasix to see if we can convert him to a nonoliguric renal failure. 2. Diastolic congestive heart failure. Volume status seems fairly acceptable. He is on room air. There is no significant peripheral edema. He is nothing by mouth. He is having minimal intake. I am going to dialyze him today simply for clearance, and we are going to continue to use albumin with dialysis to help mitigate the hemodynamic stress of hemodialysis treatment. 3. Atrial tachycardia. The patient is on IV amiodarone. His blood pressures are stable. I will use low flows on hemodialysis in view of the arrhythmia; and today, we are not going to be removing fluid with his treatment. 4. Anemia with recent gastrointestinal (GI) bleed and thrombocytopenia and also complicated by renal failure. He is receiving heparin-free dialysis, and he is also on Aranesp. Hemoglobin is improved at 9.6.
--- NOTE | 2019-08-09 14:52 | CCN ---
DATE: 08/09/2019 The patient was seen and examined this morning during bedside rounds. Overnight, the patient had periods of tachycardia with his heart rate in the 140s occasionally. He is on amiodarone IV. This morning, he was noted to be more awake and alert. He was actually conversive and appears to be oriented to person and occasionally to place. He denies any complaints currently. He has no chest pain. No shortness of breath. No abdominal pain. No nausea or vomiting. He has not had any fevers or chills overnight. PHYSICAL EXAMINATION: Temperature 99.1, pulse 126, respirations 18, blood pressure 140/66, oxygen saturation 91 to 95% on room. Input 534, output 386. General: The patient is awake and alert, is able to answer questions appropriately but is still somewhat confused occasionally. HEENT: Normocephalic, atraumatic. Pupils react to light bilaterally. There are moist mucous membranes. Neck is supple. Trachea is midline. There is no palpable cervical adenopathy. Cardiac: Tachycardiac, regular rhythm. Normal S1, S2 s. Systolic murmur auscultated. Pulmonary: Coarse breath sounds bilaterally with diminished breath sounds at the bases but no wheezing or rhonchi. Abdomen is soft and nontender. There is a colostomy with a parastomal hernia. Extremities: There is no lower extremity edema noted bilaterally. Skin has improvement in the dry exfoliative erythematous rash. LABORATORY DATA WBC 11.8, hemoglobin 9.6, platelets 81. Chemistry: Sodium is 140, potassium 3.5, chloride is 104, bicarbonate 24, BUN 22, creatinine 1.43, glucose 172. ABG: pH 7.461, pCO2 of 30.3, pO2 of 65.4. Chest x-ray shows the endotracheal tube is removed and the left IJ triple lumen has been removed. The patient has a right-sided subclavian hemodialysis catheter in place. There is some increased opacity in the left base and a small effusion, as well as pulmonary vascular congestion noted. ASSESSMENT AND PLAN: Mr. Higgins is a 74-year-old male patient with a history of diabetes, hypertension, chronic obstructive pulmonary disease (COPD), chronic kidney disease, who has had a prolonged and complicated hospitalization. The patient has had two intubations now for acute respiratory failure, as well as to episodes of septic shock requiring vasopressors. He also had acute renal failure and has been on CVVHD during his two admissions to the intensive care unit (ICU). The patient also had an episode of upper gastrointestinal bleed and ileus with a possible bowel perforation. The patient was successfully extubated yesterday and his ABG this morning appears acceptable. He is awake, alert and conversing. He appears to be protecting his airway, but he does have increased risks no for aspiration and recurrent pneumonias secondary to aspiration. - Would continue with head of bed elevation and aspiration precautions. The patient is still nothing by mouth pending recommendations from GI but he will need a swallow evaluation prior to restarting any diet. - The patient is saturating well for the most part on room air. Can continue with nasal cannula as needed to maintain oxygen saturation above 90%. - The patient is on meropenem. Can consider discontinuing meropenem as his procalcitonin has significantly improved. His Flagyl was discontinued yesterday. He is still on micafungin and he does have evidence of extensive fungal spores in his sputum, as well as previous cultures in the urine showing mirela. - Appreciate infectious disease consultation and recommendations about antibiotics, would consider discontinuing meropenem today. - Continue hydrocortisone, we will need to wean down to 50 mg daily and continue weaning as tolerated. Appreciate renal recommendations. The patient appears to have chronic renal failure at this time and does not have any evidence of recovery currently. Lasix has been started to see if he will be in oliguric renal failure, but he is still planned for intermittent hemodialysis, which he has been tolerating. - The patient is nothing by mouth pending surgery evaluation. He was attempted to have an nasogastric tube placed yesterday after extubation but the attempts were unsuccessful. - Continue to monitor hemoglobin and hematocrit and transfuse as needed. He is on Aranesp for his chronic anemia. - The patient had the new onset atrial tachycardia. He was given amiodarone IV loading dose and he is now on IV amiodarone to complete the loading. Can be transitioned to oral when he is able to tolerate oral medications. Can also consider metoprolol for rate control as well as his blood pressure has improved. Deep vein thrombosis (DVT) prophylaxis. TEDs and sequential compression device (SCD). He had a lower extremity duplex recently, which was negative DVT. Gastrointestinal prophylaxis with proton pump inhibitor. Code status: FULL CODE. Would continue to address goals of care with the patient now that he is extubated and able to converse, as well as with his healthcare proxy Izabella. Total critical care time spent, not including procedures, approximately 45 minutes. Please do not hesitate to call if there are any further questions or concerns.
--- NOTE | 2019-08-09 15:04 | IPN ---
DATE: 08/09/2019 The patient's white count dropped down to 11.8 this morning. The patient has been extubated and x-ray no longer shows free air under the diaphragm. In general, his abdomen he does not complain of any abdominal pain. He has stool in his bag, which is very hard stool and little bit of blood around this. It appears to be old blood. Consistent with the upper gastrointestinal (GI) bleed that he had a week ago. Most recently his nasogastric (NG) tube output before it was removed when he was extubated revealed no significant bloody drainage. Otherwise, his abdomen is soft, nontender, nondistended. IMPRESSION/PLAN: The patient had probable perforated ulcer as the most likely etiology for his ileus and with his GI bleed that he had he is now getting rid of some of this old blood. He is not having any diarrhea with it and his hematocrit is up suggesting that he has no acute bleed at this time. I would recommend increasing his stool softeners and if he does well today possibly start him on some clear liquids tomorrow and then progressing his diet thereafter. Otherwise, options do include performing an upper GI with small bowel follow through to make sure that we do not have any other etiology for this GI bleed that he had. Some of our issues associated with this would be a compliance issue as well as issues about transfer down to the radiology department for a prolonged period long of time. In any case we will see how he is doing in the morning, then we will reassess our next options for him.
[2019-08-09] MEDS ORDERED: MICAFUNGIN SODIUM 100 MG in D5W MINI-BAG PLUS 100 ML IV SCH (21:00)
[2019-08-10] VITALS (21 sets, daily range): BP systolic 91–154; BP diastolic 51–85
[2019-08-10] MEDS: DIMETHICONE 2% OINTMENT(VANIPLY) 70GM TUBE TOP SCH ×4 (00:27→17:38)
[2019-08-10] MEDS: HumaLOG INSULIN (NovoLOG) PER UNIT SC SCH ×4 (00:27→17:38)
[2019-08-10] MEDS: AMIODARONE HCL IV SCH ×3 (00:28→16:19)
[2019-08-10] MEDS: IPRATROPIUM 0.5MG/ALBUTEROL 2.5MG INH SOL UD 3ML (DUONEB)(J7620) NEB SCH ×4 (02:00→20:17)
[2019-08-10 05:20] LABS: BASO % 0.2 % (0.0-1.0); EOS # 0.2 10^3/uL (0.0-0.5); EOS % 1.6 % (0.0-3.0); HEMOGLOBIN 10.2 g/dl (13.5-17.5); LYMPH % 7.9 % (24.0-44.0); MEAN CORPUSCULAR HEMOGLOBIN 29.7 pg (27.0-33.0); MEAN CORPUSCULAR HGB CONC 31.9 g/dl (32.0-36.5); MEAN CORPUSCULAR VOLUME 93.3 fl (80.0-96.0); MONO % 7.8 % (0.0-5.0); NEUTROPHILS # 9.9 10^3/uL (1.5-8.5); NEUTROPHILS % 80.7 % (36.0-66.0); PLATELET COUNT, AUTOMATED 104 10^3/uL (150-450); RED BLOOD COUNT 3.43 10^6/uL (4.30-6.10); WHITE BLOOD COUNT 12.2 10^3/uL (4.0-10.0)
[2019-08-10 05:48] LABS: ALBUMIN 2.5 GM/DL (3.2-5.2); ALT/SGPT 11 U/L (12-78); BILIRUBIN,TOTAL 0.9 MG/DL (0.2-1.0); BLOOD UREA NITROGEN 12 MG/DL (7-18); CALCIUM LEVEL 9.7 MG/DL (8.8-10.2); CARBON DIOXIDE LEVEL 27 MEQ/L (21-32); CHLORIDE LEVEL 104 MEQ/L (98-107); CREATININE FOR GFR 1.03 MG/DL (0.70-1.30); GLOMERULAR FILTRATION RATE > 60.0 (>42); GLUCOSE, FASTING 86 MG/DL (70-100); POTASSIUM SERUM 3.4 MEQ/L (3.5-5.1); SODIUM LEVEL 141 MEQ/L (136-145)
[2019-08-10] MEDS: KCL 10MEQ/100ML SWI (KRUN) 10 MEQ in IV 1 EA IV SCH ×2 (07:41→08:32)
[2019-08-10] MEDS: SENNA 8.6 MG TAB (SENOKOT) PO SCH ×2 (08:30→20:46)
[2019-08-10] MEDS: DOCUSATE SOD LIQ 100MG/10ML UDC PO SCH ×2 (08:30→20:46)
[2019-08-10] MEDS: propylthiouraciL 50 MG TAB PO SCH ×2 (08:30→20:46)
[2019-08-10] MEDS: CHLORHEXIDINE GLUCONATE 0.12 % 15ML UDC (PERIDEX ORAL RINSE) MT SCH ×2 (08:31→21:13)
[2019-08-10] MEDS: HYDROCORTISONE 100 MG/2 ML VIAL (J1720 PER 1) IV SCH (08:31)
[2019-08-10] MEDS: FUROSEMIDE 100 MG/10 ML VIAL (J1940) IV SCH (08:32)
[2019-08-10] MEDS: VANICREAM MOISTURIZING SKIN CREAM 113GM TUBE TOP SCH ×2 (08:33→21:14)
[2019-08-10] MEDS: TRIAMCINOLONE ACET 0.1% OINTMENT 15 GM TOP SCH ×2 (08:33→21:14)
[2019-08-10] MEDS: PANTOPRAZOLE 40MG INJ (PROTONIX) (C9113) IV SCH ×2 (08:33→21:13)
[2019-08-10] MEDS ORDERED: MORPHINE 2 MG/ML 1ML VIAL (J2270) IV PRN (10:45)
--- NOTE | 2019-08-10 10:51 | IPNPDOC ---
Subjective Date Seen The patient was seen on 08/10/19. Subjective Chief Complaint/HPI Patient is more awake and alert today as per patient, he is okay. He doesn't offer any new complaint. He wants to go home General: Denies: ROS Unobtainable, Chills, Night Sweats, Fatigue, Malaise, Normal Appetite, Other Symptoms Constitutional: Denies: Chills, Fever, Malaise, Night Sweats, Weakness, Fatigue, Weight Loss, Lethargy, Other Pulmonary: Denies: Dyspnea, Cough, Pleuritic Chest Pain, Other Symptoms Cardiovascular: Denies: Chest Pain, Palpitations, Orthopnea, Paroxysmal Noc. Dyspnea, Edema, Lt Headedness, Other Symptoms Gastrointestinal: Denies: Nausea, Vomiting, Abdominal Pain, Diarrhea, Constipation, Melena, Hematochezia, Other Symptoms Musculoskeletal: Denies: Neck Pain, Back Pain, Shoulder Pain, Arm Pain, Hand Pain, Leg Pain, Foot Pain, Joint Pain, Muscle Pain, Spasms, Other Symptoms Neurological: Denies: Weakness, Numbness, Incoordination, Change in speech, Confusion, Seizures, Other Symptoms Objective Physical Examination Neck Exam: Positive: Supple Chest Exam: Positive: Clear to auscultation, Normal air movement Heart Exam: Positive: Rate Normal, Normal S1, Normal S2 Abdomen Exam: Positive: Normal bowel sounds, Soft, Other (no tenderness around his stoma) Extremity Exam: Positive: Normal pulses Skin Exam: Positive: Nl turgor and temperature Neuro Exam: Positive: Strength at 5/5 X4 ext, Sensation Intact, Cranial Nerves 3-12 NL Assessment /Plan Problems (1) Acute respiratory failure Status: Acute Problem Text: Patient expected yesterday after he was reintubated secondary to aspiration Aspiration was likely due to gastric contents and Ativan given for [place] catheter placement, did well on pressure support trial but concern is high for inability to protect his airway and reintubation. CT head negative for acute pathology, on Propofol and fentanyl for sedation. Possible Tracheostomy & PEG placement. Critical care follow-up appreciated Patient failed swallow well. Again Dr. Camejo order PICC line placement and possible possible TPN and repeat swallow eval ,eventually probably will need a PEG tube (2) Sepsis Status: Resolved Problem Text: Unknown etiology, likely GI source, CT abdomen and pelvis showing pneumoperitoneum, likely from microperforation, clinically improving, no need for acute surgical intervention at this time, plan for IR drainage of peritoneal fluid to rule out infection. Continue with Merrem and micafungin, [id number] levels elevated, will repeat Cvle-O-Lijgri & Procal, ID was reconsulted, sputum cultures & sputum cytology to assess for PCP pending, blood cultures negative. Continue present antibiotics and follow CBC in a.m. (3) Perforated duodenal ulcer Status: Acute Problem Text: Possible perforated duodenal ulcer for with self addition to the surrounding visrae with Possible GI bleed status post 3 unit of packed red blood cells total, H&H has since been stable, no longer having any output from NG tube, no immediate plan for EGD, continue Protonix 40 mg twice a day, Carafate 1 g every 6 hours, further transfusion as needed to maintain hemoglobin greater than 8. (4) Atrial fibrillation Status: Chronic Problem Text: Having intermittent episodes of A. fib with RVR, not an ideal candidate for anticoagulation given recent GI bleed and bowel perforation, amiodarone started for rate control. (5) IRMA (acute kidney injury) Status: Acute Problem Text: Acute on chronic kidney disease. Renal function has profoundly worsened, likely due to septic shock, minimal urine output, nephrology was reconsulted, CRRT has been discontinued. (6) Diabetes mellitus Status: Chronic Problem Text: Fingerstick blood sugar with coverage (7) Hypokalemia Status: Acute Problem Text: Potassium supplement given Repeat levels in a.m. Plan/VTE VTE Prophylaxis Ordered?: Yes VS, I&O, 24H, Fishbone Vital Signs/I&O Vital Signs Date Time Temp Pulse Resp B/P (MAP) Pulse Ox O2 Delivery O2 Flow Rate FiO2 08/10/19 05:00 121 97/55 (69) 91 Room Air 08/10/19 04:00 98.8 22 08/08/19 16:00 30 08/08/19 16:00 1.0 I&O- Last 24 Hours up to 6 AM 08/10/19 05:59 Intake Total 183.4 ml Output Total 1740 ml Balance -1556.6 ml Laboratory Data 24H LABS Laboratory Tests 2 08/09/19 11:44: Bedside Glucose (Misc Panel) 78L 08/09/19 18:18: Bedside Glucose (Misc Panel) 97 08/09/19 23:37: Bedside Glucose (Misc Panel) 115H 08/10/19 04:59: Immature Granulocyte % (Auto) 1.8, Neutrophils (%) (Auto) 80.7H, Lymphocytes (%) (Auto) 7.9L, Monocytes (%) (Auto) 7.8H, Eosinophils (%) (Auto) 1.6, Basophils (%) (Auto) 0.2, Neutrophils # (Auto) 9.9H, Lymphocytes # (Auto) 1.0L, Monocytes # (Auto) 1.0H, Eosinophils # (Auto) 0.2, Basophils # (Auto) 0.0, Nucleated Red Blood Cells % (auto) 0.2H, Anion Gap 10, Glomerular Filtration Rate > 60.0, Calcium Level 9.7, Total Bilirubin 0.9, Aspartate Amino Transf (AST/SGOT) 21, Alanine Aminotransferase (ALT/SGPT) 11L, Alkaline Phosphatase 117, Total Protein 5.0L, Albumin 2.5L, Albumin/Globulin Ratio 1.00 CBC/BMP Laboratory Tests 08/10/19 04:59 Microbiology Microbiology 08/06/19 Fungal Smear, Received Pending 08/06/19 Fungal Culture, Received Pending 08/01/19 Blood Culture - Final, Complete NO GROWTH AFTER 5 DAYS 08/01/19 Blood Culture - Final, Complete NO GROWTH AFTER 5 DAYS 08/01/19 Blood Culture - Final, Complete NO GROWTH AFTER 5 DAYS SO MORALES MD Aug 10, 2019 10:51
[2019-08-10] MEDS: SUCRALFATE SUSP 1GM/10ML UD PO SCH ×2 (11:26→17:37)
--- NOTE | 2019-08-10 14:00 | IPN ---
DATE: 08/10/2019 The patient is actually doing rather well today. He is more interactive, more talkative and has not had any nausea or vomiting, although it appears that he had a speech evaluation yesterday. In the past it sounds as though he had a speech eval/swallow eval that he failed originally, and now may be in the same situation where he is having some post intubation dysphasia. He does need some additional nutritional supplementation at this time given all of his medical issue and his malnutrition that has been going on. His abdomen is otherwise soft, nontender, nondistended. His ostomy is functioning and he has more normal-appearing stool out of his ostomy. IMPRESSION/PLAN: The patient is stable at this point. My recommendation is that we see how he does over the weekend with his dysphagia issues and reevaluate him on Tuesday. If he has ongoing/persistent dysphagia issues, then would recommend that he undergo a percutaneous gastrostomy tube via interventional radiology. However, if he does pass his study, then progressing his diet as tolerated is warranted. In addition, from my standpoint, avoiding excessive sedation with possible need for intubation is one indication not to proceed with an upper endoscopy for him. I discussed this with the nursing staff and the patient was present, and currently I do feel that it is reasonable to start him on some IV nutrition for the weekend. I have ordered a peripherally inserted central catheter (PICC) line and will defer the complicated total parenteral nutrition (TPN) orders based on renal adjustment issues to the city tax auditor.
[2019-08-10] MEDS ORDERED: METOPROLOL 5 MG/5 ML VIAL IV PRN (14:15)
[2019-08-10] MEDS ORDERED: LIDOCAINE 1% MDV 20ML VIAL As Ordered ONE (15:28)
--- NOTE | 2019-08-10 18:13 | IPN ---
DATE: 08/10/2019 Mr. Higgins seems to be doing great today. He is extubated. He is on the phone with his significant other, Karo, and he is in tears, telling us how he is going to get her a present, dentures that she has needed for 20 years. He denies any complaint. No cough or shortness of breath. He does want to eat. He has no pain. No nausea, vomiting, or diarrhea. He has a catheter in place. Dr. Brain Moreau was rounding at the same time, and she has agreed on removing catheter and keeping intake and output with a condom catheter. PHYSICAL EXAMINATION: Temperature is 99.2, pulse 126, irregular, respiratory rate 20, blood pressure 154/65, O2 saturation 95% on room air. HEART: Normal S1, S2, irregular with systolic ejection murmur 2/6, unchanged. LUNGS: Diminished breath sounds but clear. ABDOMEN: Soft, nontender, obese. EXTREMITIES: Trace edema. Peeling of the bottom of his feet with mild faint erythema of the skin. MEDICATIONS: Meropenem, currently day #14. Will be discontinued. Micafungin, day #9, also will be discontinued. LABORATORY DATA: White count 12.2, hemoglobin 10.2, hematocrit 32, platelets 104, 80% neutrophils, 8% lymphocytes, 8% monocytes. Sodium 141, potassium 3.4, chloride 104, bicarbonate 27, BUN 12, creatinine 1.03, glucose 86, calcium 9.7. Bilirubin 0.9, AST 21, ALT 11. CPK 117, albumin 2.5, total protein 5. Lipase 127. CD-4 cells 603, CD-4 percent 86%, CD 832 is quit low. Hepatitis B, C serology was negative. Methicillin-resistant Staphylococcus aureus (MRSA) screen was negative. Beta D glucan was 77. IMPRESSION: Acute respiratory failure. Most likely was related to aspiration of gastric contents and gastrointestinal (GI) bleed. The patient has been on 2 weeks of IV meropenem that was discontinued yesterday. 2. Elevated beta-3D glucan. Most likely was a false positive. Repeat testing was negative. The patient received 9 days of IV micafungin. This will be discontinued today. 3. Perforated duodenal ulcer, on IV Protonix. The patient doing much better. PLAN: I will discontinue IV meropenem, micafungin. Infectious disease is signing off.
[2019-08-10] MEDS: METOPROLOL 5 MG/5 ML VIAL IV PRN (21:32)
--- NOTE | 2019-08-10 21:38 | IPN ---
DATE: 08/10/2019 SUBJECTIVE: Juan is seen and examined this morning at the bedside in the intensive care unit. He was intermittently oriented. He answers some questions appropriately. When I asked him to tell me what the year was, he told me his date of instead. He remains nothing by mouth. He was given a trial of diuretic yesterday and he responded very well. His renal failure has now converted to nonoliguric and I am hopeful that he would not require ongoing dialysis. Vital signs: Temperature 98.6, pulse 134, respiratory rate 25, blood pressure 127/66, saturating 100% on room air. Intake yesterday was 280, urine output yesterday was 1375, weight in the bed scale today is 77.2 kg, which is decreased from prior. General: The patient is seen sitting in bed talking on the phone, awake, alert, oriented to person. in no apparent distress. Extraocular muscles are intact. Tongue is moist. Neck is supple. Jugular veins were not elevated. Heart sounds were irregular. There is a systolic murmur. There is at most trace edema in the legs. Lungs show symmetric air entry clear air. No rale or rhonchus. Abdomen is soft and nontender. There is an ostomy present on the left with gas in the bag. Extremities: Show trace edema and improving erythema of the skin. Neurologic: He is oriented to person. He is cooperative with physical exam. Genitourinary: Shows Davila catheter. LABORATORY: White count 12.2, hemoglobin 10.2, sodium 141, potassium 3.4, BUN 12, creatinine 1.0. INPATIENT MEDICATIONS: The patient received potassium chloride run. He is discontinued off of micafungin. I stopped his Lasix. His metoprolol dose was adjusted to 5 mg IV every 6 hours as needed. His remainder of medications are unchanged from prior. PROBLEMS: 1. Recurrent acute renal failure. The patient is no longer oligoanuria. He responded favorably to Lasix and made about 1.5 liter of urine. I am hopeful that he will not need further dialysis at this point given that he is nothing by mouth and is having minimal intake. I did stop the Lasix. His electrolytes and volume status are acceptable. 2. Diastolic congestive heart failure volume status is reasonable. He is having minimal intake, hence I stopped the Lasix pushes. He was only on it for a day. I wanted to see if we could convert him from oliguric renal failure to nonoliguric renal failure and indeed he has converted. He has had significant improvement in urine output. I am hopeful that we will not need to continue dialysis. 3 Diet. Noted surgery recommendations. The patient is as of yet nothing by mouth. We will start him on total parenteral nutrition (TPN) and I think a standard formulation will suffice given his acceptable electrolytes. 4. Atrial fibrillation. The patient is on amiodarone and beta devendra for rate control. He has been hemodynamically stable.
[2019-08-11] VITALS (13 sets, daily range): BP systolic 96–144; BP diastolic 53–70; O2SAT 98
[2019-08-11] MEDS: DIMETHICONE 2% OINTMENT(VANIPLY) 70GM TUBE TOP SCH ×4 (00:45→18:21)
[2019-08-11] MEDS: AMIODARONE HCL IV SCH (00:49)
[2019-08-11] MEDS: IPRATROPIUM 0.5MG/ALBUTEROL 2.5MG INH SOL UD 3ML (DUONEB)(J7620) NEB SCH ×4 (01:50→20:51)
[2019-08-11 05:04] LABS: BASO % 0.2 % (0.0-1.0); EOS # 0.3 10^3/uL (0.0-0.5); EOS % 2.2 % (0.0-3.0); HEMATOCRIT 31.2 % (42.0-52.0); HEMOGLOBIN 9.2 g/dl (13.5-17.5); LYMPH % 7.8 % (24.0-44.0); MEAN CORPUSCULAR HEMOGLOBIN 28.4 pg (27.0-33.0); MEAN CORPUSCULAR HGB CONC 29.5 g/dl (32.0-36.5); MEAN CORPUSCULAR VOLUME 96.3 fl (80.0-96.0); MONO # 1.2 10^3/uL (0.0-0.8); MONO % 8.9 % (0.0-5.0); NEUTROPHILS # 10.3 10^3/uL (1.5-8.5); PLATELET COUNT, AUTOMATED 118 10^3/uL (150-450); RED BLOOD COUNT 3.24 10^6/uL (4.30-6.10); WHITE BLOOD COUNT 13.1 10^3/uL (4.0-10.0)
[2019-08-11] MEDS: SUCRALFATE SUSP 1GM/10ML UD PO SCH ×4 (05:18→15:50)
[2019-08-11] MEDS: HumaLOG INSULIN (NovoLOG) PER UNIT SC SCH ×4 (05:20→18:00)
[2019-08-11 05:31] LABS: ALBUMIN 2.3 GM/DL (3.2-5.2); BILIRUBIN,TOTAL 0.8 MG/DL (0.2-1.0); CALCIUM LEVEL 9.8 MG/DL (8.8-10.2); CREATININE FOR GFR 1.4 MG/DL (0.70-1.30); GLOMERULAR FILTRATION RATE 52.9 (>42); MAGNESIUM LEVEL 1.5 MG/DL (1.8-2.4); TOTAL PROTEIN 5.2 GM/DL (6.4-8.2)
[2019-08-11] MEDS: METOPROLOL 5 MG/5 ML VIAL IV PRN (05:53)
[2019-08-11] MEDS ORDERED: POTASSIUM CHLORIDE 10 MEQ SR TABLET PO SCH (06:00)
[2019-08-11] MEDS: MAG SULF 1GM/100ML (MAG RUN) 1 GM in IV 1 EA IV SCH ×3 (07:49→10:18)
[2019-08-11] MEDS: DOCUSATE SOD LIQ 100MG/10ML UDC PO SCH ×2 (08:13→20:01)
[2019-08-11] MEDS: SENNA 8.6 MG TAB (SENOKOT) PO SCH ×2 (08:14→20:02)
[2019-08-11] MEDS: propylthiouraciL 50 MG TAB PO SCH ×2 (08:14→20:01)
--- NOTE | 2019-08-11 09:02 | IPNPDOC ---
Subjective Date Seen The patient was seen on 08/11/19. Subjective Chief Complaint/HPI Patient wants to leave, he doesn't want to be here, but he is not oriented to time and place, but he is oriented to person General: Denies: ROS Unobtainable, Chills, Night Sweats, Fatigue, Malaise, Normal Appetite, Other Symptoms Constitutional: Denies: Chills, Fever, Malaise, Night Sweats, Weakness, Fatigue, Weight Loss, Lethargy, Other Pulmonary: Denies: Dyspnea, Cough, Pleuritic Chest Pain, Other Symptoms Cardiovascular: Denies: Chest Pain, Palpitations, Orthopnea, Paroxysmal Noc. Dyspnea, Edema, Lt Headedness, Other Symptoms Gastrointestinal: Denies: Nausea, Vomiting, Abdominal Pain, Diarrhea, Constipation, Melena, Hematochezia, Other Symptoms Musculoskeletal: Denies: Neck Pain, Back Pain, Shoulder Pain, Arm Pain, Hand Pain, Leg Pain, Foot Pain, Joint Pain, Muscle Pain, Spasms, Other Symptoms Neurological: Denies: Weakness, Numbness, Incoordination, Change in speech, Confusion, Seizures, Other Symptoms Objective Physical Examination General Exam: Positive: Alert, Cooperative Eye Exam: Positive: PERRLA, Conjunctiva & lids normal Neck Exam: Positive: Supple Chest Exam: Positive: Clear to auscultation, Normal air movement Heart Exam: Positive: Rate Normal, Normal S1, Normal S2 Abdomen Exam: Positive: Normal bowel sounds, Soft, Other (no tenderness around his stoma) Extremity Exam: Positive: Normal pulses Skin Exam: Positive: Nl turgor and temperature Neuro Exam: Positive: Strength at 5/5 X4 ext, Sensation Intact, Cranial Nerves 3-12 NL Assessment /Plan Problems (1) Acute respiratory failure Status: Acute Problem Text: Patient expected yesterday after he was reintubated secondary to aspiration Aspiration was likely due to gastric contents and Ativan given for [place] catheter placement, did well on pressure support trial but concern is high for inability to protect his airway and reintubation. CT head negative for acute pathology, on Propofol and fentanyl for sedation. Possible Tracheostomy & PEG placement. Critical care follow-up appreciated Patient has failed swallow evaluation Unable to get PICC line as staff was unable to reach his common-law We will try to get a large peripheral line and may be start PPN Dr. Lizzeth has been requested to write orders for PPN on nephro patient We will reevaluate and do the swallow eval again on Tuesday Continue present care (2) Sepsis Status: Resolved Problem Text: Unknown etiology, likely GI source, CT abdomen and pelvis showing pneumoperitoneum, likely from microperforation, clinically improving, no need for acute surgical intervention at this time, plan for IR drainage of peritoneal fluid to rule out infection. Continue with Merrem and micafungin, [id number]-[id number] levels elevated, will repeat [id number]-T-[id number] & Procal, ID was reconsulted, sputum cultures & sputum cytology to assess for PCP pending, blood cultures negative. Continue present antibiotics and follow CBC in a.m. (3) Perforated duodenal ulcer Status: Acute Problem Text: Possible perforated duodenal ulcer for with self addition to the surrounding visrae with Possible GI bleed status post 3 unit of packed red blood cells total, H&H has since been stable, no longer having any output from NG tube, no immediate plan for EGD, continue Protonix 40 mg twice a day, Carafate 1 g every 6 hours, further transfusion as needed to maintain hemoglobin greater than 8. Surgical follow-up and has been appreciated (4) Atrial fibrillation Status: Chronic Problem Text: Patient has a regular rhythm, possibly atrial fibrillation with a rapid ventricular response . We will repeat EKG today Will increase amiodarone 250 mg by mouth every 8 hours DC beta blockers If the rate is not under control with increase amiodarone. He will try calcium channel blockers as well (5) IRMA (acute kidney injury) Status: Acute Problem Text: Acute on chronic kidney disease. Renal function has profoundly worsened, likely due to septic shock, minimal urine output, Nephrology follow-up appreciated (6) Diabetes mellitus Status: Chronic Problem Text: Fingerstick blood sugar with coverage (7) Hypokalemia Status: Acute Problem Text: Potassium supplement again ordered. Also, magnesium supplement ordered as well Levels in a.m. Plan/VTE VTE Prophylaxis Ordered?: Yes VS, I&O, 24H, Fishbone Vital Signs/I&O Vital Signs Date Time Temp Pulse Resp B/P (MAP) Pulse Ox O2 Delivery O2 Flow Rate FiO2 08/11/19 08:00 98.0 120 20 115/54 (74) 92 Room Air 08/11/19 00:00 1.0 08/08/19 16:00 30 I&O- Last 24 Hours up to 6 AM 08/11/19 06:00 Intake Total 400.1 ml Output Total 643 ml Balance -242.9 ml Laboratory Data 24H LABS Laboratory Tests 2 08/10/19 11:48: Bedside Glucose (Misc Panel) 124H 08/10/19 17:27: Bedside Glucose (Misc Panel) 157H 08/11/19 00:43: Bedside Glucose (Misc Panel) 93 08/11/19 04:51: Immature Granulocyte % (Auto) 1.9, Neutrophils (%) (Auto) 79.0H, Lymphocytes (%) (Auto) 7.8L, Monocytes (%) (Auto) 8.9H, Eosinophils (%) (Auto) 2.2, Basophils (%) (Auto) 0.2, Neutrophils # (Auto) 10.3H, Lymphocytes # (Auto) 1.0L, Monocytes # (Auto) 1.2H, Eosinophils # (Auto) 0.3, Basophils # (Auto) 0.0, Nucleated Red Blood Cells % (auto) 0.0, Anion Gap 11, Glomerular Filtration Rate 52.9, Calcium Level 9.8, Magnesium Level 1.5L, Total Bilirubin 0.8, Aspartate Amino Transf (AST/SGOT) 9, Alanine Aminotransferase (ALT/SGPT) 8L, Alkaline Phosphatase 107, Total Protein 5.2L, Albumin 2.3L, Albumin/Globulin Ratio 0.79L 08/11/19 05:16: Bedside Glucose (Misc Panel) 110 CBC/BMP Laboratory Tests 08/11/19 04:51 Microbiology Microbiology 08/06/19 Fungal Smear, Received Pending 08/06/19 Fungal Culture, Received Pending 08/01/19 Blood Culture - Final, Complete NO GROWTH AFTER 5 DAYS 08/01/19 Blood Culture - Final, Complete NO GROWTH AFTER 5 DAYS 08/01/19 Blood Culture - Final, Complete NO GROWTH AFTER 5 DAYS SO MORALES MD Aug 11, 2019 09:02
[2019-08-11] MEDS: HYDROCORTISONE 100 MG/2 ML VIAL (J1720 PER 1) IV SCH (09:10)
[2019-08-11] MEDS: CHLORHEXIDINE GLUCONATE 0.12 % 15ML UDC (PERIDEX ORAL RINSE) MT SCH ×2 (09:10→20:01)
[2019-08-11] MEDS: TRIAMCINOLONE ACET 0.1% OINTMENT 15 GM TOP SCH ×2 (09:11→20:02)
[2019-08-11] MEDS: PANTOPRAZOLE 40MG INJ (PROTONIX) (C9113) IV SCH ×2 (09:11→20:02)
[2019-08-11] MEDS: AMIODARONE HCL 150 MG in IV 1 EA IV SCH ×2 (09:11→16:23)
[2019-08-11] MEDS: VANICREAM MOISTURIZING SKIN CREAM 113GM TUBE TOP SCH ×2 (09:12→20:03)
[2019-08-11] MEDS: KCL 10MEQ/100ML SWI (KRUN) 10 MEQ in IV 1 EA IV SCH ×4 (11:38→14:51)
[2019-08-11] MEDS ORDERED: ACETAMINOPHEN *IV* 1,000 MG in IV 1 EA IV ONE (14:00)
--- NOTE | 2019-08-11 14:38 | ECGEPIP ---
[facility] Test Date: 2019-08-11 Pat Name: KEITH RICHARDSON Department: Room: [place] [address] Gender: Male [employer]: VALENTINO : 1945 Requested By: SO MORALES Order Number: [id number] Reading MD: Matt Aly Measurements Intervals [place] Rate: 109 P: 55 NE: 135 QRS: 49 QRSD: 101 T: 62 QT: 268 QTc: 362 Interpretive Statements SINUS TACHYCARDIA WITH OCCASIONAL SUPRAVENTRICULAR PREMATURE COMPLEXES NONSPECIFIC T-WAVE ABNORMALITY ABNORMAL RHYTHM ECG COMPARED TO 08/06/19 ATRIAL TACHYCARDIA IS NO LONGER PRESENT Electronically Signed on 08-11-2019 14:38:22 EST by Matt Aly
--- NOTE | 2019-08-11 17:06 | IPN ---
DATE: 08/11/2019 HISTORY: The patient is a 74-year-old man who has been hospitalized in the intensive care unit over the last 5 weeks or slightly more. Most recently, surgery was involved because of a rising white blood cell count and CT evidence suggesting a perforation based on free air. He subsequently responded to treatment with antibiotic therapy and was extubated from the ventilator 2 days ago. He apparently has failed two speech therapy evaluations for aspiration and so is nothing by mouth. He is on hemodialysis for renal failure. Vital signs show that he is afebrile over the past 24 hours. His pulse is ranging quite widely between 109 and 154 over the last 24 hours. Blood pressure is acceptable, and his room air oxygenation is in the low 90s. Intake and output show that yesterday he had only 333 mL recorded in with 686 recorded out. PHYSICAL EXAMINATION: The patient is sitting up in a chair at the bedside. He is conversant, though I am not certain that he is oriented to time in particular. He is not complaining of any pain. Skin is warm and dry. Sclerae are anicteric. Heart exam shows a regular tachycardia. Lungs show bilateral breath sounds, and the abdomen appears somewhat distended with a colostomy in left upper quadrant, which is draining some mushy, green-black stool. The abdomen is soft, and he denies any tenderness to palpation. Laboratory studies today show a white count of 13, hemoglobin 9, hematocrit 31, and a platelet count of 118,000. Differential count shows 79% neutrophils, 8% lymphocytes, and 9% monocytes. Chemistry profile shows a sodium of 144, potassium 3.0, chloride 107, CO2 of 26, BUN of 20, creatinine 1.4, and a glucose of 120. His total protein is 5.2 with an albumin of 2.3. IMPRESSION: Patient is looking fairly stable, now 2 days since extubation. The nurse reports that he will be started on some total parenteral nutrition today. He has failed swallowing studies and is felt to be at risk for aspiration so is nothing by mouth. He is not complaining of any abdominal pain today, and his ostomy appears pink and viable. PLAN: At this point I have nothing new to offer. If he were capable of swallowing, I think it would be reasonable to consider beginning an oral diet. Unfortunately, this is not possible at this time. [facility] HOSPITALVladislav
[2019-08-11] MEDS ORDERED: SODIUM ACETATE IV SCH ×6 (18:00)
[2019-08-11] MEDS ORDERED: SODIUM CHLORIDE IV SCH ×6 (18:00)
[2019-08-11] MEDS ORDERED: FAT EMULSION IV 20% 500 ML IV SCH (18:00)
[2019-08-11] MEDS ORDERED: [UNRECOGNIZED DRUG - OTHER] IV SCH ×6 (18:00)
[2019-08-11] MEDS ORDERED: HumaLOG INSULIN (NovoLOG) PER UNIT SC SCH (18:00)
--- NOTE | 2019-08-11 20:00 | IPN ---
DATE: 08/11/2019 Mr. Higgins is seen this morning on his bedside in intensive care unit. He remains quite frustrated and upset. He wants to go home but has been very weak and unable to swallow. He has failed his swallowing evaluation multiple times, but keeps insisting that he can swallow. The patient has been treated for aspiration pneumonia. He also has renal failure and remains oliguric. He was dialyzed yesterday. I was asked my hospitalist service for total parenteral nutrition (TPN) orders as the patient has not been able to swallow. Nursing staff reports that he is not able to take any medications by mouth and he has refused any thickened liquids and puree diet. PHYSICAL EXAMINATION: Temperature 98.3 degrees Fahrenheit, heart rate 118 per minute and respiratory rate 20 per minute. Blood pressure 144/64 mmHg and oxygen saturation 93% on room air. Head is atraumatic. Neck is supple and no JVD or thyroid enlargement noted. Oral hygiene is poor, but no thrush noted. Heart sounds are tachycardiac and lungs with slightly diminished breath sounds at bases. Abdomen is soft and nontender and colostomy is functioning. Extremities: Without any cyanosis or clubbing. Neurologically, he is awake and moves all his limbs. Today's labs show WBC count 13.1, hemoglobin 9.2 and hematocrit 31.2. Sodium 144, potassium 3.0, CO2 26, BUN 20 and creatinine 1.40. Glucose 120, calcium 9.8. Total protein 5.2 and albumin 2.3. PROBLEMS: 1. Oliguric acute renal failure. The patient remains oliguric and was dialyzed yesterday. At present, his volume status seems clinically well-compensated and there is no emergent indication for dialysis today. Will reevaluate him tomorrow for need for dialysis. 2. Hypokalemia. This is related to poor oral intake and dialysis. The patient has already received potassium supplement intravenously. Will added total parenteral nutrition (TPN) with high potassium and recheck his electrolytes tomorrow. 3. Protein calorie malnutrition. Unfortunately, the patient has failed his swallowing evaluation multiple times and not able to swallow at all. We will order TPN and also check his blood sugars frequently. 4. Anemia. His anemia has been stable and there is no active bleeding. We will continue to monitor closely. 5. Nutrition. TPN orders are being written as the patient is unable to swallow. Fingerstick blood sugars will be checked every 6 hours and coverage provided per sliding scale.
[2019-08-12] VITALS: BP 145/64
[2019-08-12] MEDS: HumaLOG INSULIN (NovoLOG) PER UNIT SC SCH ×4 (00:05→17:46)
[2019-08-12] MEDS: AMIODARONE HCL 150 MG in IV 1 EA IV SCH ×3 (00:05→17:03)
[2019-08-12] MEDS: DIMETHICONE 2% OINTMENT(VANIPLY) 70GM TUBE TOP SCH ×4 (00:06→17:46)
[2019-08-12] MEDS: IPRATROPIUM 0.5MG/ALBUTEROL 2.5MG INH SOL UD 3ML (DUONEB)(J7620) NEB SCH ×4 (02:00→19:30)
[2019-08-12 04:00] VITALS: BP 145/63
[2019-08-12 05:02] LABS: BASO % 0.2 % (0.0-1.0); EOS # 0.6 10^3/uL (0.0-0.5); EOS % 3.3 % (0.0-3.0); HEMATOCRIT 32.2 % (42.0-52.0); LYMPH # 0.9 10^3/uL (1.5-5.0); LYMPH % 5.1 % (24.0-44.0); MEAN CORPUSCULAR HEMOGLOBIN 29.6 pg (27.0-33.0); MEAN CORPUSCULAR HGB CONC 31.1 g/dl (32.0-36.5); MEAN CORPUSCULAR VOLUME 95.3 fl (80.0-96.0); MONO # 1.2 10^3/uL (0.0-0.8); MONO % 7.3 % (0.0-5.0); NEUTROPHILS # 13.9 10^3/uL (1.5-8.5); NEUTROPHILS % 82.9 % (36.0-66.0); PLATELET COUNT, AUTOMATED 193 10^3/uL (150-450); RED BLOOD COUNT 3.38 10^6/uL (4.30-6.10); WHITE BLOOD COUNT 16.8 10^3/uL (4.0-10.0)
[2019-08-12] MEDS: SUCRALFATE SUSP 1GM/10ML UD PO SCH ×5 (05:14→20:10)
[2019-08-12 05:26] LABS: ALBUMIN 2.5 GM/DL (3.2-5.2); BILIRUBIN,TOTAL 0.6 MG/DL (0.2-1.0); CALCIUM LEVEL 9.8 MG/DL (8.8-10.2); CREATININE FOR GFR 1.51 MG/DL (0.70-1.30); GLOMERULAR FILTRATION RATE 48.5 (>42); PHOSPHORUS LEVEL 1.3 MG/DL (2.5-4.9); POTASSIUM SERUM 3.4 MEQ/L (3.5-5.1); TOTAL PROTEIN 5.2 GM/DL (6.4-8.2)
[2019-08-12 06:28] LABS: MAGNESIUM LEVEL 2.2 MG/DL (1.8-2.4)
[2019-08-12 07:45] VITALS: BP 145/64
[2019-08-12] MEDS: propylthiouraciL 50 MG TAB PO SCH ×2 (09:00→20:09)
[2019-08-12] MEDS: SENNA 8.6 MG TAB (SENOKOT) PO SCH ×2 (09:00→20:09)
[2019-08-12] MEDS: DOCUSATE SOD LIQ 100MG/10ML UDC PO SCH ×2 (09:00→20:09)
--- NOTE | 2019-08-12 09:23 | IPNPDOC ---
Subjective Date Seen The patient was seen on 08/12/19. Subjective Chief Complaint/HPI Mora is awake, oriented 2. Today, in no apparent distress. states he took Coreg, and wants to go home again General: Denies: ROS Unobtainable, Chills, Night Sweats, Fatigue, Malaise, Normal Appetite, Other Symptoms Constitutional: Denies: Chills, Fever, Malaise, Night Sweats, Weakness, Fatig ue, Weight Loss, Lethargy, Other Pulmonary: Denies: Dyspnea, Cough, Pleuritic Chest Pain, Other Symptoms Cardiovascular: Denies: Chest Pain, Palpitations, Orthopnea, Paroxysmal Noc. Dyspnea, Edema, Lt Headedness, Other Symptoms Gastrointestinal: Denies: Nausea, Vomiting, Abdominal Pain, Diarrhea, Constipation, Melena, Hematochezia, Other Symptoms Endocrine: Denies: Polydipsia, Polyphagia, Polyuria, Heat Intolerance, Cold Intolerance, Other Endocrine Sx Musculoskeletal: Denies: Neck Pain, Back Pain, Shoulder Pain, Arm Pain, Hand Pain, Leg Pain, Foot Pain, Joint Pain, Muscle Pain, Spasms, Other Symptoms Neurological: Denies: Weakness, Numbness, Incoordination, Change in speech, Confusion, Seizures, Other Symptoms Objective Physical Examination Neck Exam: Positive: Supple Chest Exam: Positive: Clear to auscultation, Normal air movement Heart Exam: Positive: Rate Normal, Normal S1, Normal S2 Abdomen Exam: Positive: Normal bowel sounds, Soft, Other (no tenderness around his stoma) Extremity Exam: Positive: Normal pulses Skin Exam: Positive: Nl turgor and temperature Neuro Exam: Positive: Strength at 5/5 X4 ext, Sensation Intact, Cranial Nerves 3-12 NL Assessment /Plan Problems (1) Acute respiratory failure Status: Acute Problem Text: Patient expected yesterday after he was reintubated secondary to aspiration Aspiration was likely due to gastric contents and Ativan given for [place] catheter placement, did well on pressure support trial but concern is high for inability to protect his airway and reintubation. CT head negative for acute pathology, on Propofol and fentanyl for sedation. Critical care follow-up appreciated Patient has failed swallow evaluation Unable to get PICC line as staff was unable to reach his common-law Patient is getting TPN by a hemodialysis catheter Dr. Moreau's help appreciated. Regarding TPN orders Will get swallow evaluation done tomorrow again and if it fails, then we'll consider possible PEG placement Patient is clinically stable, can speak transferred to PCU on all current medications (2) Sepsis Status: Resolved Problem Text: Unknown etiology, likely GI source, CT abdomen and pelvis showing pneumoperitoneum, likely from microperforation, clinically improving, no need for acute surgical intervention at this time, plan for IR drainage of peritoneal fluid to rule out infection. Continue with Merrem and micafungin, [id number] levels elevated, will repeat [id number] & Procal, ID was reconsulted, sputum cultures & sputum cytology to assess for PCP pending, blood cultures negative. Continue present care. His level work for tomorrow has been ordered (3) Perforated duodenal ulcer Status: Acute Problem Text: Possible perforated duodenal ulcer for with self addition to the surrounding visrae with Possible GI bleed status post 3 unit of packed red blood cells total, H&H has since been stable, no longer having any output from NG tube, no immediate plan for EGD, continue Protonix 40 mg twice a day, Carafate 1 g every 6 hours, further transfusion as needed to maintain hemoglobin greater than 8. Patient is asymptomatic at this time. Afebrile and will continue monitoring (4) Atrial fibrillation Status: Chronic Problem Text: Patient has a regular rhythm, possibly atrial fibrillation with a rapid ventricular response . We will repeat EKG today Will increase amiodarone 250 mg by mouth every 8 hours DC beta blockers If the rate is not under control with increase amiodarone. He will try calcium channel blockers as well (5) IRMA (acute kidney injury) Status: Acute Problem Text: Acute on chronic kidney disease. HD as per nephrology Nephrology follow-up appreciated (6) Diabetes mellitus Status: Chronic Problem Text: Fingerstick blood sugar with coverage (7) Hypokalemia Status: Acute Problem Text: Below. Mag and phosphorous supplement will be supplemented in TPN ordered by nephrology Plan/VTE VTE Prophylaxis Ordered?: Yes VS, I&O, 24H, Fishbone Vital Signs/I&O Vital Signs Date Time Temp Pulse Resp B/P (MAP) Pulse Ox O2 Delivery O2 Flow Rate FiO2 08/12/19 04:00 98.5 123 20 145/63 (90) 88 Room Air 08/11/19 04:05 30 1/11/20 00:00 1.0 I&O- Last 24 Hours up to 6 AM 08/12/19 06:00 Intake Total 2100 ml Output Total 110 ml Balance 1990 ml Laboratory Data 24H LABS Laboratory Tests 2 08/11/19 11:50: Bedside Glucose (Misc Panel) 150H 08/11/19 18:10: Bedside Glucose (Misc Panel) 160H 08/11/19 23:15: Bedside Glucose (Misc Panel) 278H 08/12/19 04:40: Immature Granulocyte % (Auto) 1.2, Neutrophils (%) (Auto) 82.9H, Lymphocytes (%) (Auto) 5.1L, Monocytes (%) (Auto) 7.3H, Eosinophils (%) (Auto) 3.3H, Basophils (%) (Auto) 0.2, Neutrophils # (Auto) 13.9H, Lymphocytes # (Auto) 0.9L, Monocytes # (Auto) 1.2H, Eosinophils # (Auto) 0.6H, Basophils # (Auto) 0.0, Nucleated Red Blood Cells % (auto) 0.0, Anion Gap 9, Glomerular Filtration Rate 48.5, Calcium Level 9.8, Phosphorus Level 1.3#L, Magnesium Level 2.2, Total Bilirubin 0.6, Aspartate Amino Transf (AST/SGOT) 17, Alanine Aminotransferase (ALT/SGPT) 12, Alkaline Phosphatase 116, Total Protein 5.2L, Albumin 2.5L, Albumin/Globulin Ratio 0.93L CBC/BMP Laboratory Tests 08/12/19 04:40 Microbiology Microbiology 08/06/19 Fungal Smear, Received Pending 08/06/19 Fungal Culture, Received Pending SO MORALES MD Aug 12, 2019 09:23
[2019-08-12] MEDS: PANTOPRAZOLE 40MG INJ (PROTONIX) (C9113) IV SCH ×2 (10:01→20:26)
[2019-08-12] MEDS: CHLORHEXIDINE GLUCONATE 0.12 % 15ML UDC (PERIDEX ORAL RINSE) MT SCH ×2 (10:01→20:26)
[2019-08-12] MEDS: HYDROCORTISONE 100 MG/2 ML VIAL (J1720 PER 1) IV SCH (10:02)
[2019-08-12] MEDS: TRIAMCINOLONE ACET 0.1% OINTMENT 15 GM TOP SCH ×2 (10:05→20:27)
[2019-08-12] MEDS: VANICREAM MOISTURIZING SKIN CREAM 113GM TUBE TOP SCH ×2 (10:06→20:27)
[2019-08-12 11:34] VITALS: BP 173/77
[2019-08-12 16:00] VITALS: BP 145/70
[2019-08-12] MEDS ORDERED: FAT EMULSION IV 20% 500 ML IV SCH (18:00)
[2019-08-12] MEDS ORDERED: POTASSIUM CHLORIDE IV SCH ×5 (18:00)
[2019-08-12] MEDS ORDERED: [UNRECOGNIZED DRUG - OTHER] IV SCH ×5 (18:00)
[2019-08-12] MEDS ORDERED: SODIUM CHLORIDE IV SCH ×5 (18:00)
[2019-08-12 20:00] VITALS: BP 170/80
[2019-08-13] VITALS: BP 162/80
[2019-08-13] MEDS: AMIODARONE HCL 150 MG in IV 1 EA IV SCH ×3 (00:13→18:38)
[2019-08-13 04:00] VITALS: BP 162/80
[2019-08-13] MEDS: IPRATROPIUM 0.5MG/ALBUTEROL 2.5MG INH SOL UD 3ML (DUONEB)(J7620) NEB SCH ×4 (04:37→20:23)
[2019-08-13 05:37] LABS: BASO # 0.1 10^3/uL (0.0-0.2); BASO % 0.3 % (0.0-1.0); EOS # 0.7 10^3/uL (0.0-0.5); HEMATOCRIT 32.7 % (42.0-52.0); HEMOGLOBIN 10.5 g/dl (13.5-17.5); LYMPH # 0.9 10^3/uL (1.5-5.0); LYMPH % 5.1 % (24.0-44.0); MEAN CORPUSCULAR HEMOGLOBIN 31.2 pg (27.0-33.0); MEAN CORPUSCULAR HGB CONC 32.1 g/dl (32.0-36.5); MONO # 1.2 10^3/uL (0.0-0.8); MONO % 6.7 % (0.0-5.0); NEUTROPHILS # 14.7 10^3/uL (1.5-8.5); NEUTROPHILS % 82.9 % (36.0-66.0); PLATELET COUNT, AUTOMATED 249 10^3/uL (150-450); RED BLOOD COUNT 3.37 10^6/uL (4.30-6.10); WHITE BLOOD COUNT 17.8 10^3/uL (4.0-10.0)
[2019-08-13] MEDS: DIMETHICONE 2% OINTMENT(VANIPLY) 70GM TUBE TOP SCH ×4 (06:00→18:39)
[2019-08-13] MEDS: HumaLOG INSULIN (NovoLOG) PER UNIT SC SCH ×4 (06:00→18:39)
[2019-08-13] MEDS: SUCRALFATE SUSP 1GM/10ML UD PO SCH ×3 (06:00→18:38)
[2019-08-13 06:12] LABS: ALBUMIN 2.4 GM/DL (3.2-5.2); ALT/SGPT 13 U/L (12-78); BILIRUBIN,TOTAL 0.8 MG/DL (0.2-1.0); BLOOD UREA NITROGEN 36 MG/DL (7-18); CALCIUM LEVEL 10.3 MG/DL (8.8-10.2); CARBON DIOXIDE LEVEL 26 MEQ/L (21-32); CHLORIDE LEVEL 113 MEQ/L (98-107); CREATININE FOR GFR 1.23 MG/DL (0.70-1.30); GLOMERULAR FILTRATION RATE > 60.0 (>42); GLUCOSE, FASTING 300 MG/DL (70-100); PHOSPHORUS LEVEL 1.9 MG/DL (2.5-4.9); SODIUM LEVEL 146 MEQ/L (136-145); TOTAL PROTEIN 6.1 GM/DL (6.4-8.2)
--- NOTE | 2019-08-13 06:36 | IPN ---
DATE OF VISIT: 08/12/2019 Mr. Higgins is seen this morning on his bedside in the intensive care unit. He remains somewhat confused. He wants to go home and reports that he was able to get up and walk out last night. He went shopping and then came back. In fact, he has been unable to even get up in the bed. He is currently getting ready for physical therapy. He has been unable to swallow properly and total parenteral nutrition (TPN) was started due to malnutrition. The patient denies any dyspnea or chest pain. He had acute renal failure once again and was recently on continuous renal replacement therapy (CRRT). He does have urine output and has been incontinent at times. On physical examination, temperature 98.0 degrees Fahrenheit, heart rate 118 per minute and respiratory rate 20 per minute. Blood pressure 145/64 mmHg and oxygen saturation 95% on room air. Output is not accurately recorded due to incontinence. His head is atraumatic. Neck is supple and jugular venous distention (JVD) not abnormally elevated. Hemodialysis catheter is present in the right internal jugular vein. Heart sounds are tachycardiac. Lungs with diminished breath sounds at bases. Abdomen: Soft and nontender and colostomy is present. Extremities: Without any cyanosis or clubbing. Neurologically, he is awake and without a focal deficit. Today's labs show WBC count 16.8, hemoglobin 10.0 and hematocrit 32.2. Platelets 193. Sodium 145, potassium 3.4, CO2 27, BUN 25 and creatinine 1.51. Glucose 235 and calcium 9.8. Phosphorus only 1.3 and magnesium 2.2. Total protein 5.2 and albumin 2.5. PROBLEMS: 1. Acute renal failure superimposed on chronic kidney disease. Only slight increase in serum creatinine is noticed since yesterday. He does have urine output, however, has been incontinent and output is not recorded accurately. His volume status seems reasonably well-compensated and there is no emergent need for dialysis at present. 2. Hypokalemia. Potassium level slightly improved and we will continue with TPN and increase the potassium in his TPN. 3. Malnutrition. The patient remains unable to swallow and he remains on TPN. I wrote his TPN orders again. 4. Hypophosphatemia. This is nutritional and we are adding phosphorus in his TPN. Renal profile will be checked again tomorrow. 5. Anemia. His anemia is stable at present and does not need any urgent intervention. All other issues are being addressed by the hospitalist service.
[2019-08-13 08:00] VITALS: BP 178/62
[2019-08-13] MEDS: propylthiouraciL 50 MG TAB PO SCH ×2 (08:23→20:35)
[2019-08-13] MEDS: SENNA 8.6 MG TAB (SENOKOT) PO SCH ×2 (08:23→20:35)
[2019-08-13] MEDS: CHLORHEXIDINE GLUCONATE 0.12 % 15ML UDC (PERIDEX ORAL RINSE) MT SCH ×2 (08:28→20:43)
[2019-08-13] MEDS: DOCUSATE SOD LIQ 100MG/10ML UDC PO SCH ×2 (08:29→20:34)
[2019-08-13] MEDS: HYDROCORTISONE 100 MG/2 ML VIAL (J1720 PER 1) IV SCH (08:29)
[2019-08-13] MEDS: TRIAMCINOLONE ACET 0.1% OINTMENT 15 GM TOP SCH ×2 (08:31→20:44)
[2019-08-13] MEDS: PANTOPRAZOLE 40MG INJ (PROTONIX) (C9113) IV SCH ×2 (08:31→20:43)
[2019-08-13] MEDS: VANICREAM MOISTURIZING SKIN CREAM 113GM TUBE TOP SCH ×2 (08:32→20:44)
--- NOTE | 2019-08-13 10:25 | IPNPDOC ---
Subjective Date Seen The patient was seen on 08/13/19. Subjective Chief Complaint/HPI Patient is more lethargic today as compared to yesterday but easily arousable, in no apparent distress General: Denies: ROS Unobtainable, Chills, Night Sweats, Fatigue, Malaise, Normal Appetite, Other Symptoms Constitutional: Denies: Chills, Fever, Malaise, Night Sweats, Weakness, Fatigue, Weight Loss, Lethargy, Other Pulmonary: Denies: Dyspnea, Cough, Pleuritic Chest Pain, Other Symptoms Cardiovascular: Denies: Chest Pain, Palpitations, Orthopnea, Paroxysmal Noc. Dyspnea, Edema, Lt Headedness, Other Symptoms Gastrointestinal: Denies: Nausea, Vomiting, Abdominal Pain, Diarrhea, Constipation, Melena, Hematochezia, Other Symptoms Hematologic: Denies: Bruising, Bleeding Excessively, Petecchia, Purpura, Enla rged Lymph Nodes, Other Hematologic Musculoskeletal: Denies: Neck Pain, Back Pain, Shoulder Pain, Arm Pain, Hand Pain, Leg Pain, Foot Pain, Joint Pain, Muscle Pain, Spasms, Other Symptoms Neurological: Denies: Weakness, Numbness, Incoordination, Change in speech, Confusion, Seizures, Other Symptoms Objective Physical Examination Neck Exam: Positive: Supple Chest Exam: Positive: Clear to auscultation, Normal air movement Heart Exam: Positive: Rate Normal, Normal S1, Normal S2 Abdomen Exam: Positive: Normal bowel sounds, Soft, Other (no tenderness around his stoma) Extremity Exam: Positive: Normal pulses Skin Exam: Positive: Nl turgor and temperature Neuro Exam: Positive: Strength at 5/5 X4 ext, Sensation Intact, Cranial Nerves 3-12 NL Assessment /Plan Problems (1) Acute respiratory failure Status: Acute Problem Text: Patient expected yesterday after he was reintubated secondary to aspiration Aspiration was likely due to gastric contents and Ativan given for [place] catheter placement, did well on pressure support trial but concern is high for inability to protect his airway and reintubation. CT head negative for acute pathology, on Propofol and fentanyl for sedation. Critical care follow-up appreciated Patient has failed swallow evaluation Patient's, lower called and PICC line consent obtained In the meantime, he is getting TPN via the dialysis catheter TPN is been written by Dr. Moreau and appreciated Swallow evaluation again today Discussed breast patients, and lower regarding DNR, DNI, but she refused to consent for those. She wants everything to be done including intubation (2) Sepsis Status: Resolved Problem Text: Unknown etiology, likely GI source, CT abdomen and pelvis showing pneumoperitoneum, likely from microperforation, clinically improving, no need for acute surgical intervention at this time, plan for IR drainage of peritoneal fluid to rule out infection. Continue with Merrem and micafungin, [id number] levels elevated, will repeat [id number] & Procal, ID was reconsulted, sputum cultures & sputum cytology to assess for PCP pending, blood cultures negative. . Patient's WBC count is 17.8 today Continue present antibiotics Will request ID follow-up A.m. labs (3) Perforated duodenal ulcer Status: Acute Problem Text: Possible perforated duodenal ulcer for with self addition to the surrounding visrae with Possible GI bleed status post 3 unit of packed red blood cells total, H&H has since been stable, no longer having any output from NG tube, no immediate plan for EGD, continue Protonix 40 mg twice a day, Carafate 1 g every 6 hours, further transfusion as needed to maintain hemoglobin greater than 8. Patient is asymptomatic at this time. Afebrile and will continue monitoring (4) Atrial fibrillation Status: Chronic Problem Text: Patient has a regular rhythm, possibly atrial fibrillation with a rapid ventricular response . We will repeat EKG today Will increase amiodarone 250 mg by mouth every 8 hours DC beta blockers If the rate is not under control with increase amiodarone. He will try calcium channel blockers as well (5) IRMA (acute kidney injury) Status: Acute Problem Text: Acute on chronic kidney disease. HD as per nephrology Nephrology follow-up appreciated (6) Diabetes mellitus Status: Chronic Problem Text: Fingerstick blood sugar with coverage (7) Hypokalemia Status: Acute Problem Text: Below. Mag and phosphorous supplement will be supplemented in TPN ordered by nephrology Plan/VTE VTE Prophylaxis Ordered?: Yes VS, I&O, 24H, Fishbone Vital Signs/I&O Vital Signs Date Time Temp Pulse Resp B/P (MAP) Pulse Ox O2 Delivery O2 Flow Rate FiO2 08/13/19 08:00 97.2 122 20 178/62 (100) 90 Room Air 08/13/19 04:00 2.0 08/11/19 04:05 30 I&O- Last 24 Hours up to 6 AM 08/13/19 06:00 Intake Total 820 ml Output Total 0 ml Balance 820 ml Laboratory Data 24H LABS Laboratory Tests 2 08/12/19 12:25: Bedside Glucose (Misc Panel) 288H 08/12/19 17:37: Bedside Glucose (Misc Panel) 288H 08/12/19 23:56: Bedside Glucose (Misc Panel) 213H 08/13/19 05:09: Immature Granulocyte % (Auto) 1.0, Neutrophils (%) (Auto) 82.9H, Lymphocytes (%) (Auto) 5.1L, Monocytes (%) (Auto) 6.7H, Eosinophils (%) (Auto) 4.0H, Basophils (%) (Auto) 0.3, Neutrophils # (Auto) 14.7H, Lymphocytes # (Auto) 0.9L, Monocytes # (Auto) 1.2H, Eosinophils # (Auto) 0.7H, Basophils # (Auto) 0.1, Nucleated Red Blood Cells % (auto) 0.0, Anion Gap 7L, Glomerular Filtration Rate > 60.0, Calcium Level 10.3H, Phosphorus Level 1.9#L, Total Bilirubin 0.8, Aspartate Amino Transf (AST/SGOT) 45H, Alanine Aminotransferase (ALT/SGPT) 13, Alkaline Phosphatase 125H, Total Protein 6.1L, Albumin 2.4L, Albumin/Globulin Ratio 0.65L CBC/BMP Laboratory Tests 08/13/19 05:09 Microbiology Microbiology 08/06/19 Fungal Smear, Received Pending 08/06/19 Fungal Culture, Received Pending SO MORALES MD Aug 13, 2019 10:25
--- NOTE | 2019-08-13 10:36 | REP ---
Portable chest x-ray: Single view. History: CHF. Comparison study: August 09, 2019. Findings: EKG monitoring electrodes overlie the chest. Right internal jugular central venous line is seen terminating in the expected location of the superior cavoatrial junction. Cardiomegaly is again observed unchanged. Pulmonary vascular cephalization and congestion is visible. Increased markings behind the heart in the left lower lobe are again seen. Findings are felt to be unchanged. Electronically Signed by Rodolfo Chester MD 08/13/2019 10:27 A
[2019-08-13 12:00] VITALS: BP 140/71
[2019-08-13 16:00] VITALS: BP 167/74
[2019-08-13] MEDS ORDERED: FAT EMULSION IV 20% 500 ML IV SCH (18:00)
[2019-08-13] MEDS ORDERED: POTASSIUM CHLORIDE IV SCH ×7 (18:00)
[2019-08-13] MEDS ORDERED: [UNRECOGNIZED DRUG - OTHER] IV SCH ×7 (18:00)
[2019-08-13] MEDS ORDERED: SODIUM CHLORIDE IV SCH ×7 (18:00)
--- NOTE | 2019-08-13 19:57 | IPN ---
DATE: 08/13/2019 Mr. Higgins is seen this morning on his bedside. [facility] He remains mostly bed-bound. He is still very weak and unable to even get up from the bed. He has been on total parenteral nutrition (TPN) due to inability to swallow and is scheduled for another swallowing evaluation later today. The patient denies any dyspnea, chest pain, fever or chills. PHYSICAL EXAMINATION: Temperature 97.2 degrees Fahrenheit, heart rate 122 per minute and respiratory rate 20 per minute. Blood pressure 178/62 mmHg and oxygen saturation 90% on room air. His head is atraumatic. He has dialysis catheter in right internal jugular vein. I do not see any obvious neck vein distension. Heart sounds are tachycardiac. Lungs with slightly diminished breath sounds at the right base and few basilar rales. Abdomen is soft and nontender and colostomy is present. Extremities without any cyanosis or clubbing. Neurologically, he is awake and at his baseline mentation. LABORATORY DATA: Today's laboratories show WBC count 17.8, hemoglobin 10.5 and hematocrit 32.7. Platelets 249. Sodium 146, potassium 4.0, CO2 26, BUN 36 and creatinine 1.23. Glucose 300 and calcium 10.3. Phosphorus level is now up to 1.9. Total protein 6.1 and albumin 2.4. PROBLEMS: 1. Acute renal failure superimposed on chronic kidney disease. The patient did require a continuous renal replacement therapy (CRRT) and temporary dialysis. At present, his kidney function seems improved compared with the last couple of days. There is no emergent indication for dialysis. He has been incontinent and nursing staff reports that he does have significant urine output. 2. Protein calorie malnutrition. The patient has been unable to swallow and has not received any oral nutrition for the last several weeks. We will continue with total parenteral nutrition (TPN) pending another evaluation for swallowing today. His TPN orders are being written. 3. Hypokalemia. His potassium level has improved and we will continue to add higher amount of potassium in his TPN and recheck electrolytes again tomorrow. 4. Hypernatremia. Sodium level is borderline high and will be corrected with decreased amount of sodium in the TPN today. 5. Hypercalcemia. The patient is currently not receiving any calcium in the TPN and electrolytes are being monitored on a daily basis. No specific intervention is indicated at present. 6. Hypophosphatemia. His phosphorus has also improved since yesterday and we will continue to add potassium phosphate in the TPN. 7. Inability to swallow. The patient is scheduled for another swallowing evaluation later today. It remains to be seen how he does. 8. Generalized weakness and deconditioning. The patient remains quite weak and deconditioned. Physical therapy is needed for awhile at least.
[2019-08-13 20:00] VITALS: BP 175/86
[2019-08-14] VITALS: BP 182/80
[2019-08-14] MEDS: HumaLOG INSULIN (NovoLOG) PER UNIT SC SCH ×4 (00:16→17:38)
[2019-08-14] MEDS: DIMETHICONE 2% OINTMENT(VANIPLY) 70GM TUBE TOP SCH ×4 (00:16→18:00)
[2019-08-14] MEDS: AMIODARONE HCL 150 MG in IV 1 EA IV SCH ×2 (00:17→11:55)
[2019-08-14] MEDS: IPRATROPIUM 0.5MG/ALBUTEROL 2.5MG INH SOL UD 3ML (DUONEB)(J7620) NEB SCH ×4 (02:05→20:06)
[2019-08-14] MEDS: SUCRALFATE SUSP 1GM/10ML UD PO SCH ×4 (06:00→18:00)
[2019-08-14 06:14] LABS: BASO % 0.3 % (0.0-1.0); EOS # 0.6 10^3/uL (0.0-0.5); EOS % 4.7 % (0.0-3.0); HEMATOCRIT 32.1 % (42.0-52.0); HEMOGLOBIN 10.1 g/dl (13.5-17.5); LYMPH # 1.1 10^3/uL (1.5-5.0); LYMPH % 8.6 % (24.0-44.0); MEAN CORPUSCULAR HEMOGLOBIN 30.4 pg (27.0-33.0); MEAN CORPUSCULAR HGB CONC 31.5 g/dl (32.0-36.5); MEAN CORPUSCULAR VOLUME 96.7 fl (80.0-96.0); MONO % 7.4 % (0.0-5.0); NEUTROPHILS # 10.2 10^3/uL (1.5-8.5); NEUTROPHILS % 78.1 % (36.0-66.0); PLATELET COUNT, AUTOMATED 217 10^3/uL (150-450); RED BLOOD COUNT 3.32 10^6/uL (4.30-6.10)
[2019-08-14] MEDS ORDERED: HALOPERIDOL 5 MG/ML VIAL (J1630) IM PRN (06:30)
[2019-08-14 06:46] LABS: ALBUMIN 2.1 GM/DL (3.2-5.2); ALT/SGPT 17 U/L (12-78); BLOOD UREA NITROGEN 41 MG/DL (7-18); CALCIUM LEVEL 9.9 MG/DL (8.8-10.2); CARBON DIOXIDE LEVEL 25 MEQ/L (21-32); CHLORIDE LEVEL 118 MEQ/L (98-107); CREATININE FOR GFR 1.06 MG/DL (0.70-1.30); GLOMERULAR FILTRATION RATE > 60.0 (>42); GLUCOSE, FASTING 222 MG/DL (70-100); POTASSIUM SERUM 4.5 MEQ/L (3.5-5.1); SODIUM LEVEL 148 MEQ/L (136-145); TOTAL PROTEIN 5.8 GM/DL (6.4-8.2)
[2019-08-14 08:00] VITALS: BP 171/84
[2019-08-14] MEDS: VANICREAM MOISTURIZING SKIN CREAM 113GM TUBE TOP SCH ×2 (09:00→20:42)
[2019-08-14] MEDS: TRIAMCINOLONE ACET 0.1% OINTMENT 15 GM TOP SCH ×2 (09:00→20:42)
[2019-08-14] MEDS: CHLORHEXIDINE GLUCONATE 0.12 % 15ML UDC (PERIDEX ORAL RINSE) MT SCH ×2 (09:00→20:28)
[2019-08-14] MEDS: propylthiouraciL 50 MG TAB PO SCH ×2 (09:00→20:41)
[2019-08-14] MEDS: SENNA 8.6 MG TAB (SENOKOT) PO SCH ×2 (09:00→20:29)
[2019-08-14] MEDS: DOCUSATE SOD LIQ 100MG/10ML UDC PO SCH ×2 (09:00→20:29)
[2019-08-14 10:49] VITALS: BP 175/79
[2019-08-14] MEDS ORDERED: D5W/0.45% SODIUM CHLORIDE 1,000 ML IV SCH (11:45)
[2019-08-14] MEDS ORDERED: METOPROLOL 5 MG/5 ML VIAL IV ONE (12:00)
[2019-08-14] MEDS: PANTOPRAZOLE 40MG INJ (PROTONIX) (C9113) IV SCH ×2 (12:05→20:41)
[2019-08-14] MEDS: HYDROCORTISONE 100 MG/2 ML VIAL (J1720 PER 1) IV SCH (12:05)
[2019-08-14] MEDS ORDERED: LIDOCAINE 1% MDV 20ML VIAL As Ordered ONE (16:22)
[2019-08-14 17:13] VITALS: BP 173/95
[2019-08-14] MEDS ORDERED: SODIUM CHLORIDE 0.9% INJ 10 ML SYR IV PRN (17:15)
[2019-08-14] MEDS: SODIUM CHLORIDE 0.9% INJ 10 ML SYR IV SCH (17:40)
--- NOTE | 2019-08-14 17:59 | IPN ---
DATE: 08/14/2019 Mr. Higgins is seen this morning on his bedside. He is feeling about the same. Nursing staff report that last night he pulled out his hemodialysis catheter, which also included his central line for total parenteral nutrition (TPN), so he is not currently receiving TPN. The patient has difficulty swallowing and has failed his swallowing evaluation multiple times. He keeps insisting on going home even though he is not able to even get up from the bed. Nursing staff is currently trying to get a peripheral IV access. PHYSICAL EXAMINATION: Temperature 98.4 degrees Fahrenheit, heart rate 116 per minute and respiratory rate about 20 per minute. Blood pressure is 175/79 mmHg and oxygen saturation 96% on room air. He is incontinent and nursing staff reports that his diaper has been heavily wet, though output is not being recorded. His head is atraumatic. Neck is supple and jugular venous distention (JVD) not abnormally elevated. There is no sign of bleeding or infection at the site of internal jugular vein dialysis catheter, which he pulled out last night. Heart sounds are tachycardiac and irregular in rhythm. Lungs with few basilar rales. Abdomen: Soft and nontender and colostomy is present. Extremities: Have no cyanosis or clubbing. His oral mucosa is very dry and has difficulty talking. Extremities have slight thigh edema but no cyanosis or clubbing. Today's labs show WBC count 13.0, hemoglobin 10.1 and hematocrit 32.1, platelets 217. Sodium 148, potassium 4.5, BUN 41 and creatinine 1.06. Glucose 222 and calcium is down to 9.9. PROBLEMS: 1. Acute renal failure superimposed on chronic kidney disease. Kidney function has improved, and the patient has adequate urine output. No need for dialysis, and he accidentally pulled out his dialysis catheter last night anyway. 2. Hypernatremia. This is related to inability to drink and TPN. We are trying to convince him for a peripherally inserted central catheter (PICC) line placement, so we can continue the TPN as he is unable to swallow. I did write TPN orders with decreased sodium content. 3. Anemia and leukocytosis. His leukocytosis has improved slightly since yesterday. He is currently not on any antibiotics. Anemia is stable without any active bleeding. 4. Protein-calorie malnutrition. The patient remains unable to swallow, and he is going to have another swallowing evaluation today. In the meantime, we will continue with TPN, and if he can agree for a PICC line placement, that will be helpful. I already wrote his TPN orders for today.
[2019-08-14] MEDS ORDERED: HumaLOG INSULIN (NovoLOG) PER UNIT SC SCH (18:00)
[2019-08-14] MEDS ORDERED: amLODIPine 10 MG TAB PO ONE (18:00)
[2019-08-14] MEDS ORDERED: SODIUM CHLORIDE IV SCH ×4 (18:00)
[2019-08-14] MEDS ORDERED: [UNRECOGNIZED DRUG - OTHER] IV SCH ×4 (18:00)
[2019-08-14] MEDS ORDERED: POTASSIUM PHOSPHATE IV SCH ×4 (18:00)
[2019-08-14] MEDS ORDERED: atenoloL 25 MG TAB PO ONE (18:00)
[2019-08-14] MEDS ORDERED: FAT EMULSION IV 20% 500 ML IV SCH (18:00)
--- NOTE | 2019-08-14 18:09 | REP ---
COOKIE SWALLOW The procedure was performed under the direct supervision of Dr. Chester. The procedure was performed with Luisa Anderson from speech pathology present. 5 ml aliquots of nectar, honey and puree consistency barium was administered. With nectar consistency barium there is laryngeal penetration. The detailed report of this examination will be provided by speech pathology. 1.1 minutes of fluoroscopy time was utilized for this procedure. Electronically Signed by ANALISA Milligan 08/14/2019 04:50 P Electronically Signed by Rodolfo Chester MD 08/14/2019 06:01 P
--- NOTE | 2019-08-14 18:11 | REP ---
Procedure: PICC line insertion with Nahid The procedure was performed under the direct supervision of Dr. Chester. The risks and benefits of the procedure were explained and informed consent was obtained by the health care proxy. The right basilic vein was localized using ultrasound guidance. The skin was prepped and draped in a sterile fashion. 1% lidocaine was used as a local anesthetic. Using ultrasound guidance the basilic vein was cannulated and a 0.018 guidewire was inserted and advanced to the SVC using fluoroscopic guidance. The needle was removed and a 5.5 Chadian dilator and peel-away sheath was inserted over the guide wire. A 5.5 Chadian dual lumen catheter was cut to length of 42 cm. The dilator was removed and the catheter was inserted over the guide wire with the tip ending in the SVC. The peel-away sheath was removed and the catheter was flushed with heparinized saline as per Hospital protocol. The catheter was affixed to the skin and a sterile dressing was applied. The patient tolerated the procedure well and there were no immediate complications. 0.2 minutes of fluoro time was utilized for this procedure. Electronically Signed by ANALISA Milligan 08/14/2019 04:58 P Electronically Signed by Rodolfo Chester MD 08/14/2019 06:02 P
--- NOTE | 2019-08-14 19:23 | IPNPDOC ---
Date Seen The patient was seen on 08/14/19. Progress Note HISTORY OF PRESENT ILLNESS: 74-year-old male with past medical history of diabetes mellitus, hypertension, COPD, hyperthyroidism, chronic kidney disease , has had a prolonged hospital stay due to septic shock, GI bleed, multiple intubations, dysphasia and severe physical deconditioning. Patient has been extubated and downgraded to the medical floor since the last time I saw him. He continues to be very weak, remains nothing by mouth due to dysphagia, failed his swallow eval yesterday, scheduled for cookie swallow later today. Overnight, he pulled out his dialysis catheter, does not have any IV access at this time, he is very angry about his current situation and wishes to go home, despite not being able to stand up. He denies any medical complaint at this time, denies chest pain, nausea, vomiting, diarrhea or abdominal pain. 10 point review of system is negative except for above PHYSICAL EXAMINATION: VITAL SIGNS: Please see below. GENERAL: No distress HEENT: Moist mucous membranes NECK: Supple CARDIOVASCULAR EXAMINATION: S1, S2, tachycardic RESPIRATORY EXAMINATION: Scattered rhonchi, diminished in the bases ABDOMINAL EXAMINATION: Soft, nondistended, hypoactive bowel sounds, ostomy output increasing EXTREMITIES: Significant improvement in lower extremity edema since the last time I saw him SKIN: Erythema improved NEUROLOGICAL EXAMINATION: No focal deficits LABORATORY DATA: See below. MICROBIOLOGY: Please see below. ASSESSMENT: 74-year-old male with past medical history of diabetes mellitus, hypertension, COPD, hyperthyroidism, chronic kidney disease has had a prolonged hospital stay due to septic shock, GI bleed, multiple intubations, dysphasia and severe physical deconditioning now on PCU. PLAN: 1. Dysphasia. Has severe malnutrition, was on TPN but has pulled out his dialysis catheter, along with central line access for TPN, failed swallow eval yesterday, scheduled for cookie swallow today, has agreed for PICC line placement for TPN. Severe physical deconditioning, continue physical therapy/occupational therapy. 2. Septic shock Resolved, was intubated and on pressors twice during this hospitalization, etiologies include aspiration and possible GI source, now hemodynamically stable and off antibiotics. 3. GI bleed. status post 5 units of packed red blood cells total, H&H has since been stable, continue PPI and Carafate. 4. Acute on chronic kidney disease. Required CRRT twice during this hospitalization, renal function is now improved close to patient's baseline, has good urine output, nephrology following. 5. Paroxysmal atrial fibrillation. Currently in sinus tachycardia, will avoid anticoagulation due to GI bleed, continue home atenolol for optimal rate control. 6. Diabetes mellitus. Hold metformin, sliding scale coverage every 6 hours. 7. Hyperthyroidism. Continue propylthiouracil 8. Gout. Continue allopurinol 9. Acute hypercapnic and hypoxemic respiratory failure Intubated 2, now resolved, currently on room air, slightly dyspneic, likely due to basilar atelectasis. DVT prophylaxis: TEDs GI prophylaxis: PPI and Carafate VS, I&O, 24H, Fishbone Vital Signs/I&O Vital Signs Date Time Temp Pulse Resp B/P (MAP) Pulse Ox O2 Delivery O2 Flow Rate FiO2 08/14/19 17:13 98.3 117 28 173/95 (121) 95 Room Air 08/14/19 12:28 2.0 08/11/19 04:05 30 I&O- Last 24 Hours up to 6 AM 08/14/19 06:00 Intake Total 100 ml Output Total 0 ml Balance 100 ml Laboratory Data 24H LABS Laboratory Tests 2 08/14/19 00:11: Bedside Glucose (Misc Panel) 207H 08/14/19 05:52: Immature Granulocyte % (Auto) 0.9, Neutrophils (%) (Auto) 78.1H, Lymphocytes (%) (Auto) 8.6L, Monocytes (%) (Auto) 7.4H, Eosinophils (%) (Auto) 4.7H, Basophils (%) (Auto) 0.3, Neutrophils # (Auto) 10.2H, Lymphocytes # (Auto) 1.1L, Monocytes # (Auto) 1.0H, Eosinophils # (Auto) 0.6H, Basophils # (Auto) 0.0, Nucleated Red Blood Cells % (auto) 0.2H, Anion Gap 5L, Glomerular Filtration Rate > 60.0, Calcium Level 9.9, Total Bilirubin 1.0, Aspartate Amino Transf (AST/SGOT) 66H, Alanine Aminotransferase (ALT/SGPT) 17, Alkaline Phosphatase 133H, Total Protein 5.8L, Albumin 2.1L, Albumin/Globulin Ratio 0.57L 08/14/19 12:16: Bedside Glucose (Misc Panel) 208H 08/14/19 17:12: Bedside Glucose (Misc Panel) 142H CBC/BMP Laboratory Tests 08/14/19 05:52 Microbiology Microbiology 08/06/19 Fungal Smear, Received Pending 08/06/19 Fungal Culture, Received Pending SHARLA LUI MD Aug 14, 2019 19:23
[2019-08-14] MEDS: ACETAMINOPHEN TAB 650MG DOSE (2X325MG) NG PRN (19:43)
[2019-08-14 20:00] VITALS: BP 184/86
[2019-08-14] MEDS: RAMELTEON 8 MG TAB (ROZEREM) PO SCH (23:03)
[2019-08-15] VITALS (24 sets, daily range): BP systolic 56–182; BP diastolic 34–84
[2019-08-15] MEDS ORDERED: diphenhydrAMINE INJ 50MG/ML VIAL (J1200) IV ONE (01:00)
[2019-08-15] MEDS: HumaLOG INSULIN (NovoLOG) PER UNIT SC SCH ×5 (01:41→23:54)
[2019-08-15] MEDS: IPRATROPIUM 0.5MG/ALBUTEROL 2.5MG INH SOL UD 3ML (DUONEB)(J7620) NEB SCH ×4 (02:00→19:37)
[2019-08-15] MEDS: DIMETHICONE 2% OINTMENT(VANIPLY) 70GM TUBE TOP SCH ×5 (06:00→23:55)
[2019-08-15] MEDS: SUCRALFATE SUSP 1GM/10ML UD PO SCH ×5 (06:00→23:38)
[2019-08-15 06:05] LABS: HEMATOCRIT 30.7 % (42.0-52.0); HEMOGLOBIN 9.6 g/dl (13.5-17.5); MEAN CORPUSCULAR HEMOGLOBIN 30.3 pg (27.0-33.0); MEAN CORPUSCULAR HGB CONC 31.3 g/dl (32.0-36.5); MEAN CORPUSCULAR VOLUME 96.8 fl (80.0-96.0); PLATELET COUNT, AUTOMATED 150 10^3/uL (150-450); RED BLOOD COUNT 3.17 10^6/uL (4.30-6.10); WHITE BLOOD COUNT 11.1 10^3/uL (4.0-10.0)
[2019-08-15] MEDS: SODIUM CHLORIDE 0.9% INJ 10 ML SYR IV SCH ×2 (06:28→17:25)
[2019-08-15 06:31] LABS: BLOOD UREA NITROGEN 42 MG/DL (7-18); CALCIUM LEVEL 9.8 MG/DL (8.8-10.2); CARBON DIOXIDE LEVEL 25 MEQ/L (21-32); CHLORIDE LEVEL 123 MEQ/L (98-107); CREATININE FOR GFR 1.05 MG/DL (0.70-1.30); GLOMERULAR FILTRATION RATE > 60.0 (>42); GLUCOSE, FASTING 141 MG/DL (70-100); MAGNESIUM LEVEL 1.6 MG/DL (1.8-2.4); PHOSPHORUS LEVEL 2.4 MG/DL (2.5-4.9); POTASSIUM SERUM 3.8 MEQ/L (3.5-5.1); SODIUM LEVEL 153 MEQ/L (136-145)
[2019-08-15] MEDS: PANTOPRAZOLE 40MG INJ (PROTONIX) (C9113) IV SCH ×2 (08:45→23:52)
[2019-08-15] MEDS: HYDROCORTISONE 100 MG/2 ML VIAL (J1720 PER 1) IV SCH (08:45)
[2019-08-15] MEDS: atenoloL 25 MG TAB PO SCH (08:46)
[2019-08-15] MEDS: SENNA 8.6 MG TAB (SENOKOT) PO SCH ×2 (08:46→21:00)
[2019-08-15] MEDS: amLODIPine 10 MG TAB PO SCH (08:46)
[2019-08-15] MEDS: propylthiouraciL 50 MG TAB PO SCH ×2 (08:48→21:00)
[2019-08-15] MEDS ORDERED: D5W 1,000 ML IV SCH (09:00)
[2019-08-15] MEDS: TRIAMCINOLONE ACET 0.1% OINTMENT 15 GM TOP SCH ×2 (09:00→23:54)
[2019-08-15] MEDS: DOCUSATE SOD LIQ 100MG/10ML UDC PO SCH ×2 (09:00→21:00)
[2019-08-15] MEDS: CHLORHEXIDINE GLUCONATE 0.12 % 15ML UDC (PERIDEX ORAL RINSE) MT SCH ×2 (09:00→23:52)
[2019-08-15] MEDS ORDERED: FUROSEMIDE 40 MG/4 ML VIAL (J1940) IV ONE (11:00)
--- NOTE | 2019-08-15 15:41 | IPN ---
DATE OF VISIT: 08/15/2019 Mr. Higgins is seen this morning on his bedside. He is sitting in the chair at the time of my visit. Nursing staff reports that he was able to swallow thickened liquids and pureed diet. He was given medications by mouth. He remains on total parenteral nutrition (TPN) due to malnutrition and inability to swallow properly. Patient remains quite frustrated and wants to go home. He is expressing again his desire to signing out against medical advice. He has tried that multiple times but was not able to even get in the car. On physical exam, temperature 98.6 degrees Fahrenheit, heart rate 100 per minute and respiratory rate 24 per minute. Blood pressure 176/80 mmHg and oxygen saturation 91% on room air. Head is atraumatic. Neck is supple and jugular venous distention (JVD) difficult to be assessed sitting upright. Lungs have bibasilar rales and heart sounds are tachycardiac. Abdomen soft and bowel sounds are present. Colostomy is functioning. Extremities without any cyanosis or clubbing. Neurologically, he has no focal deficit. Today's labs show WBC count 11.1, hemoglobin 9.6 and hematocrit 30.7. Platelets 150. Sodium 153, potassium 3.8, chloride 123, CO2 25, BUN 42 and creatinine 1.05. Calcium 9.8, phosphorus 2.4 and magnesium 1.6. Albumin level is 2.0. PROBLEMS: 1. Hypernatremia. His sodium level worsened despite decreased amount of sodium in the TPN. He has no oral intake of liquids and probably has significant insensible losses. He has been given 1 liter of D5W today and electrolytes will be repeated at 4 p.m. I have cut down the TPN sodium content significantly. 2. Shortness of breath and hypoxemia. His volume status is probably slightly decompensated. He will be given one dose of Lasix 40 mg today and IV fluid D5W will be stopped after 1 liter. He will continue with TPN until he gets adequate nutrition by mouth. 3. Protein calorie malnutrition. Patient has been unable to swallow properly and he has been on TPN. I did write his TPN orders again today. He is now taking some by mouth but not adequate.
[2019-08-15] MEDS: VANICREAM MOISTURIZING SKIN CREAM 113GM TUBE TOP SCH ×2 (16:00→23:54)
[2019-08-15 16:20] LABS: ALBUMIN 2.1 GM/DL (3.2-5.2); CALCIUM LEVEL 9.5 MG/DL (8.8-10.2); CREATININE FOR GFR 1.31 MG/DL (0.70-1.30); GLOMERULAR FILTRATION RATE 57.1 (>42); PHOSPHORUS LEVEL 2.4 MG/DL (2.5-4.9)
--- NOTE | 2019-08-15 16:59 | IPNPDOC ---
Date Seen The patient was seen on 08/15/19. Progress Note HISTORY OF PRESENT ILLNESS: 74-year-old male with past medical history of diabetes mellitus, hypertension, COPD, hyperthyroidism, chronic kidney disease , has had a prolonged hospital stay due to septic shock, GI bleed, multiple intubations, dysphasia and severe physical deconditioning. Patient has been extubated and downgraded to the medical floor since the last time I saw him. He continues to be very weak, remains nothing by mouth due to dysphagia, failed his swallow eval yesterday, scheduled for cookie swallow later today. Overnight, he pulled out his dialysis catheter, does not have any IV access at this time, he is very angry about his current situation and wishes to go home, despite not being able to stand up. He denies any medical complaint at this time, denies chest pain, nausea, vomiting, diarrhea or abdominal pain. 08/15/19 Patient in a bad mood in the morning, wishing to leave AGAINST MEDICAL ADVICE, he wants all restrictions removed on his diet, advised regarding benefits of staying and risks of leaving up to and including , patient understands the risks and wishes to leave anyway. Patient is currently sitting in chair, unable to even stand up without assistance, will discuss with social work and nursing staff regarding our options. Patient otherwise has no complaints, denies any change in shortness of breath, nausea, vomiting, chest pain, abdominal pain, d iarrhea or constipation. 10 point review of system is negative except for above PHYSICAL EXAMINATION: VITAL SIGNS: Please see below. GENERAL: No distress HEENT: Moist mucous membranes NECK: Supple CARDIOVASCULAR EXAMINATION: S1, S2, tachycardic RESPIRATORY EXAMINATION: Scattered rhonchi, diminished in the bases, tachypneic ABDOMINAL EXAMINATION: Soft, nondistended, hypoactive bowel sounds, ostomy output increasing EXTREMITIES: Significant improvement in lower extremity edema since the last [place] I saw him SKIN: Erythema improved NEUROLOGICAL EXAMINATION: No focal deficits LABORATORY DATA: See below. MICROBIOLOGY: Please see below. ASSESSMENT: 74-year-old male with past medical history of diabetes mellitus, hypertension, COPD, hyperthyroidism, chronic kidney disease has had a prolonged hospital stay due to septic shock, GI bleed, multiple intubations, dysphasia and severe physical deconditioning now on PCU. PLAN: 1. Dysphasia. Has severe malnutrition, TPN has been restarted with decreased sodium, did well with cookie swallow yesterday, diet advanced and neck thick, will advance as tolerated. Patient requesting to leave AMA, but unable to physically leave the facility. Severe physical deconditioning, continue physical therapy/occupational therapy. 2. Septic shock/respiratory failure/renal failure Resolved, has been in the ICU on pressors, intubated and CRRT twice. Now stable 3. GI bleed. status post 5 units of packed red blood cells total, H&H has since been sta ble, continue PPI and Carafate. 4. Acute on chronic kidney disease. Required CRRT twice during this hospitalization, renal function is now improved close to patient's baseline, has good urine output, nephrology following. 5. Paroxysmal atrial fibrillation. Currently in sinus tachycardia, will avoid anticoagulation due to recent GI bleed, continue home atenolol for optimal rate control. 6. Diabetes mellitus. Hold metformin, sliding scale coverage every 6 hours. 7. Hyperthyroidism. Continue propylthiouracil 8. Gout. Continue allopurinol DVT prophylaxis: TEDs GI prophylaxis: PPI and Carafate VS, I&O, 24H, [facility] Vital Signs/I&O Vital Signs Date Time Temp Pulse Resp B/P (MAP) Pulse Ox O2 Delivery O2 Flow Rate FiO2 08/15/19 12:00 98.6 93 24 160/80 (106) 91 Room Air 08/14/19 12:28 2.0 08/11/19 04:05 30 I&O- Last 24 Hours up to 6 AM 08/15/19 06:00 Intake Total 410 ml Output Total 200 ml Balance 210 ml Laboratory Data 24H LABS Laboratory Tests 2 08/14/19 17:12: Bedside Glucose (Misc Panel) 142H 08/15/19 00:51: Bedside Glucose (Misc Panel) 247H 08/15/19 05:43: Nucleated Red Blood Cells % (auto) 0.2H, Anion Gap 5L, Glomerular Filtration Rate > 60.0, Calcium Level 9.8, Phosphorus Level 2.4#L, Magnesium Level 1.6L, Albumin 2.0L 08/15/19 11:58: Bedside Glucose (Misc Panel) 448H 08/15/19 15:49: Anion Gap 10, Glomerular Filtration Rate 57.1, Calcium Level 9.5, Phosphorus Level 2.4L, Albumin 2.1L CBC/BMP Laboratory Tests 08/15/19 05:43 08/15/19 15:49 Microbiology Microbiology 08/06/19 Fungal Smear, Received Pending 08/06/19 Fungal Culture, Received Pending SHARLA LUI MD Aug 15, 2019 16:59
[2019-08-15] MEDS: ACETAMINOPHEN TAB 650MG DOSE (2X325MG) NG PRN (17:26)
[2019-08-15] MEDS ORDERED: [UNRECOGNIZED DRUG - OTHER] IV SCH ×7 (18:00)
[2019-08-15] MEDS ORDERED: FAT EMULSION IV 20% 500 ML IV SCH (18:00)
[2019-08-15] MEDS ORDERED: POTASSIUM CHLORIDE IV SCH ×7 (18:00)
[2019-08-15] MEDS ORDERED: SODIUM CHLORIDE IV SCH ×7 (18:00)
[2019-08-15] MEDS ORDERED: ACETAMINOPHEN TAB 650MG DOSE (2X325MG) PO PRN (18:00)
[2019-08-15] MEDS ORDERED: ROCURONIUM BROMIDE 50 MG/5 ML VIAL As Ordered ONE (18:44)
[2019-08-15] MEDS ORDERED: ETOMIDATE INJ 20MG/10ML VIAL As Ordered ONE (18:44)
[2019-08-15] MEDS ORDERED: ETOMIDATE INJ 20MG/10ML VIAL IV STA (19:05)
[2019-08-15] MEDS ORDERED: fentaNYL CITRATE 1,000 MCG in NS 80 ML IV SCH (19:15)
--- NOTE | 2019-08-15 19:23 | IPNPDOC ---
Text Note Date of Service The patient was seen on 08/15/19. NOTE A max car was called to patient's room due to patient being found on responsive, with poor with saturation. Upon arrival, patient was being bag mask at 100 percent saturation, CPR was in progress, and shock was advised by defibrillator. Patient received one round of defibrillation and CPR resumed. Initial evaluation revealed the patient was pulseless, unable to maintain airway, had poor circulation. Epinephrine was administered. Patient had return of circulation with a heart rate of 180, blood pressure of 220/100, he was unable to maintain his airway. Bicarbonate was then administered. Due to patient's inability to maintain his airway. He was then intubated with etomidate and rocuronium for sadation. Intubation occurred at 1848 hrs. X-ray was ordered for confirmation. Patient was secured and transferred to the ICU. VS,[place], I+O VS, [place], I+O Laboratory Tests 08/15/19 05:43 08/15/19 15:49 Vital Signs Date Time Temp Pulse Resp B/P (MAP) Pulse Ox O2 Delivery O2 Flow Rate FiO2 08/15/19 12:00 98.6 93 24 160/80 (106) 91 Room Air 08/14/19 12:28 2.0 08/11/19 04:05 30 I&O- Last 24 Hours up to 6 AM 08/15/19 06:00 Intake Total 410 ml Output Total 200 ml Balance 210 ml MOOSE PASCAL DO Aug 15, 2019 19:23
[2019-08-15] MEDS ORDERED: MIDAZOLAM INJ 2 MG/2 ML VIAL (J2250) IV ONE (19:30)
[2019-08-15] MEDS ORDERED: PROPOFOL 1,000 MG/100 ML VIAL As Ordered ONE (19:36)
[2019-08-15] MEDS ORDERED: propofoL 1,000 MG in IV 1 EA IV SCH (19:36)
[2019-08-15] MEDS ORDERED: MORPHINE 4 MG/ML 1ML VIAL/SYRINGE (J2270) IV PRN (19:45)
--- NOTE | 2019-08-15 19:59 | REP ---
Portable chest x-ray: Single view. History: Intubation. Comparison study: August 13, 2019. Findings: A right-sided PICC line is seen in position with its tip in the expected location of the superior vena cava. A endotracheal tube has been passed into good position just above the transverse aorta. There are patchy areas of increased markings in the bases and perihilar regions bilaterally. The previously noted tunnel catheter is then withdrawn. Electronically Signed by Rodolfo Chester MD 08/15/2019 07:51 P
[2019-08-15] MEDS ORDERED: NS 1,000 ML IV ONE (20:00)
[2019-08-15] MEDS ORDERED: ROCURONIUM BROMIDE 50 MG/5 ML VIAL IV SCH (20:00)
[2019-08-15] MEDS ORDERED: MIDAZOLAM INJ 2 MG/2 ML VIAL (J2250) IV PRN (20:00)
[2019-08-15] MEDS ORDERED: REFRIGERATOR IV KEYS XX PRN (20:00)
--- NOTE | 2019-08-15 20:12 | ROOPDOC ---
[facility] Report Of Operation Report of Operation DATE OF PROCEDURE: 08/15/19 PREPROCEDURE DIAGNOSES: Recurrent aspiration pneumonia/inability to protect airway POSTPROCEDURE DIAGNOSES: Recurrent aspiration pneumonia with inability to protect airway PROCEDURE: Endotracheal intubation Procedure handle lathe operator: Dr. Siva Keenan D.O. PGY-1 Attending physician: Dr. Christa M.D. Procedure summary: Called to bedside for a max cart as patient had coded and resuscitation efforts were in progress. After return of spontaneous circulation, decision was made that patient needed urgent endotracheal intubation due to recurrent aspiration and inability to protect airway. The patient was already on a engine monitor which included continuous pulse oximetry. Rapid sequence intubation was conducted. The patient received 10 mg of etomidate for induction and 25 mg of Shailesh John and for adequate paralysis. Using a 3 Mac blade and endotracheal tube was stylette, the patient was intubated on the first attempt. There was some evidence of aspirate around the cords when they were visualized. The stylette was removed and cuff balloon was inflated. Appropriate endotracheal tube position was confirmed by direct visualization of vocal cord passage, fogging of the tube, CO2 colometric indicator and symmetric breath sounds. The tube was secured at 21 cm at the lips. Post intubation chest x-ray is pending at this time. SIVA KEENAN D.O. Aug 15, 2019 20:11 AMAN YOUSIF MD Aug 16, 2019 07:01
[2019-08-15] MEDS: RAMELTEON 8 MG TAB (ROZEREM) PO SCH (21:00)
[2019-08-15] MEDS ORDERED: MIDAZOLAM HCL 100 MG in D5W 80 ML IV SCH (21:00)
[2019-08-15] MEDS ORDERED: ALBUTEROL SULFATE 2.5 MG/0.5 ML INH NEB SOLN NEB PRN (21:00)
[2019-08-15] MEDS ORDERED: niCARdipine IV 40 MG in IV 1 EA IV SCH (22:45)
--- NOTE | 2019-08-15 22:56 | CCN ---
DATE: 08/15/2019 Ms. Higgins is a 74-year-old male, well-known to the pulmonary service. He was admitted July 04 with malaise and shaking of his arms. He has had a long and complicated admission since that time. In essence, he was intubated. He has already been intubated twice and on continuous renal replacement therapy (CRRT) twice. He had an upper gastrointestinal (GI) bleed and an ileus. He has had sepsis with shock. He also has swallowing difficulties with aspiration and has been on total parenteral nutrition (TPN). He also has a history of atrial tachycardia and has been on amiodarone. He was last seen by the pulmonary service on 08/09/2019. Since that time, he has been moved out of the intensive care unit initially to the progressive care unit (PCU) and then to the floor. He also had been recently cleared on a swallow evaluation (August 14) and was started on pureed diet. It is not clear what happened this evening. What I was told is that the nurses had laid him down to bathe him, and then he went unresponsive. A code was called, and the AED recommended a shock, so he received one shock. He got 1 amp of epinephrine and 1 amp of bicarbonate as well as cardiopulmonary resuscitation (CPR), I believe three to four rounds, and had return of circulation. He was breathing, but it was felt by the team that responded to the code that breathing was not sufficient and they could not protect his airway, so he was intubated up. What I have found out in conversations is that he had eaten this evening, and when he was laid down to be cleaned, it was shortly after he had eaten. Apparently there was a small amount of food in hypopharynx but not in the airways. No food particles have been suctioned. When I arrive, he is intubated and synchronous with the ventilator. He responds to his name and appears to try to look at me, but he does not track. He does not follow any other commands. He was hypertensive and tachycardiac after code, the pressure normalizing. When he was started on propofol, his pressure dropped, and he was in the process of getting a fluid bolus. In speaking with other providers and reading the notes, it appears that he has been alert and knows his name and date but does not know where he is. His significant other has made most of the decisions, but she does not have a working phone so could not be contacted. It also has been verbally passed on to me that the plan had been that if he had three intubations that he would go on to a tracheostomy, but, again, I cannot confirm that, and that could be something for the team to determine going forward. ALLERGIES: QUINOLONES, AZITHROMYCIN IBUPROFEN, LEVOFLOXACIN, TOBRAMYCIN, and ZOLPIDEM. MEDICATIONS: At this time include: - TPN - acetaminophen suppository every 6 hours as needed - acetaminophen 650 by mouth every 6 hours as needed - DuoNeb every 6 hours - Norvasc 10 mg by mouth daily - artificial tears - atenolol 75 mg by mouth daily - darbepoetin 200 mcg IV with hemodialysis (HD) - Vaniply to face topically every 6 hours - Colace 200 mg by mouth twice a day - furosemide 40 mg IV times one earlier today - Haldol 1 mg IM every 4 hours as needed (last dose 08/14/2019, 629) - hydrocortisone 50 mg IV daily - Zofran 4 mg IV every 6 hours as needed - Protonix 40 mg IV twice a day - propylthiouracil 25 mg by mouth at bedtime and 50 mg by mouth every morning - Rozerem 8 mg by mouth at bedtime - saliva substitute - senna 2 tablets by mouth twice a day - sucralfate 1 gram by mouth every 6 - triamcinolone topical cream to face twice a day - insulin sliding scale PERTINENT PAST MEDICAL HISTORY: 1. Chronic obstructive pulmonary disease (COPD). 2. Chronic kidney disease, status post CRRT times two this admission. 3. History of septic shock, requiring vasopressors this admission. 4. History of two intubations this admission secondary to acute respiratory failure. 5. Upper gastrointestinal (GI) bleed and ileus this admission. 6. Hypertension. 7. Diabetes mellitus. 8. Hyperthyroidism. 9. Status post bowel obstruction with a colostomy. 10. Status post hip surgery. 11. Status post appendectomy. 12. Status post cholecystectomy. 13. History of tobacco usage. OBJECTIVE: PHYSICAL EXAMINATION: GENERAL: Mr. Higgins is intubated and synchronous with the ventilator. VITAL SIGNS: Temperature 97.8, pulse 90, respiratory rate 16, blood pressure 95/51, SpO2 of 92% on FiO2 of 0.6. HEENT: Anicteric, pupils equal, round, and reactive to light (PERRL). His eyes are not tracking, though he does appear to attempt to track. Nares: Patent bilaterally. Moist mucosa. Oropharynx: Endotracheal (ET) tube in place. NECK: Supple. Trachea is midline. LYMPHATICS: Without cervical or supraclavicular adenopathy. LUNGS: Symmetric excursion. Generalized diminished air entry. Rare expiratory wheezes. No rhonchi or crackle. Prolonged expiratory phase. No accessory muscle usage or retractions. CARDIOVASCULAR: Regular rate and rhythm with a normal S1, S2. No murmur, rub, or gallop appreciated. ABDOMEN: Diminished but positive bowel sounds. Colostomy with viable mucosa. Soft. There are several healing lesions there, and he has some bruising related to receiving deep vein thrombosis (DVT) prophylaxis. EXTREMITIES: Right extremity cool with ankle edema and palpable pedal pulses. Left extremity is cooler with slightly more pitting edema than the left. Palpable pedal pulses. No clubbing or cyanosis. LABORATORY DATA: Chemistries from this afternoon showed a sodium 147, potassium 3.0, bicarbonate 116, chloride 21, anion gap 10, BUN 47, creatinine 1.3, glucose 311, calcium 9.5, phosphorus 2.4, albumin 2.1. Labs from this morning included magnesium 1.6. CBC from this morning showed a hemoglobin 9.6, hematocrit of 30.7, platelet count 150,000, white blood cell count 11,100. I reviewed his chest x-ray as well as the report that shows normal-appearing cardiac silhouette and pulmonary vascular shadows. There are normal-appearing mediastinal and hilar regions. There are regions of patchy infiltrates bilaterally, greater at the bases and greater on the right. ET tube is in good position. There is a right peripherally inserted central catheter (PICC) line. 1. Acute respiratory failure status post cardiac arrest leading to intubation. 2. History acute respiratory failure times two this admission, leading to intubation. 3. Chronic obstructive pulmonary disease (COPD). 4. Chronic kidney disease, on dialysis, and history of CRRT times two this admission. 5. Gastrointestinal (GI) bleed this admission. 6. Hypertension at baseline. 7. Altered mental status throughout this admission (I do not know baseline). 8. History of aspiration. He previously failed two swallow studies and just passed one August 14 and has had been started on a pureed diet with his fourth meal being just prior to his arrest. 9. Diabetes mellitus. 10. Cool left extremity greater than right. No palpable pulses. 11. On stress doses of hydrocortisone since admission, now down to 50 mg IV every day since August 09. 12. Deep vein thrombosis (DVT) prophylaxis. Sequential compression devices (SCDs) and thromboembolic deterrent stockings (TEDS). It appears medications were discontinued on August 01. 13. Diabetes mellitus, on sliding scale insulin. 14. DVT prophylaxis, on twice daily proton pump inhibitor and Carafate. RECOMMENDATIONS: 1. We will continue mechanical ventilation. Apparently he has been difficult to wean in the past, so this may be a different etiology, and perhaps he will not be as difficult to wean this time. There has also been verbally transmitted to me the plan was to go on to tracheostomy if he required reintubation, but, again, that will have to be further assessed by the primary team. 2. Given his soft pressure, we will use Versed drip for sedation; however, I have asked that that be capped at 2 mg, ,meaning it will not be titrated and to use as-needed if more is needed. This can be reassessed in the morning to see how many boluses required, and then if appropriate increase the drip; however, if his blood pressures have returned to normal, a change to propofol could be considered. Additionally, he should be assessed for extubation. 3. At this time I do not see an indication for antibiotics. 4. Given the left lower extremity is cooler than the right and that he is only on SCD and TEDS, would obtain a lower extremity Doppler. Given his recent GI bleed, if he does have a DVT, would need to consider whether it is appropriate to anticoagulate him or have a filter placed. As this will make a change in care, it needs to be done tonight. 5. Given that he is on stress-dose hydrocortisone, I would given one additional dosage at this point. However, I do not feel that he needs to be started on anything higher than his weaning dosage of 50 mg daily. 6. Would keep him on a sliding scale insulin and hyperthyroid medications. 7. Would hold antihypertensive at this time. 8. He has a two lumen PICC. If he were to require pressures has appropriate axis. 9. Would also obtain a CVP. He has been receiving renal dialysis and we need to make certain that he does not get too much fluid, but he needs appropriate fluid and this may be a good guide. 10. All of these recommendations have been conveyed to the resident on the hospitalist service. CRITICAL CARE TIME: 50 minutes, not including procedure time. Edited: 08/15/2019 1004 [email or web address]
[2019-08-15 23:17] LABS: ABG BASE EXCESS -3.8 (-2.0-2.0); ABG HCO3 23.4 MEQ/L (22.0-26.0); ABG O2 SATURATION 96.2 % (95.0-99.0); ABG PARTIAL PRESSURE CO2 53.5 mmHg (35.0-45.0); ABG PARTIAL PRESSURE O2 93.3 mmHg (75.0-100.0); ABG STANDARD HCO3 21.3 MEQ/L (22.0-26.0); ABG TOTAL CO2 25.1 MEQ/L (23.0-31.0); ABG pH (ARTERIAL) 7.259 UNITS (7.350-7.450)
[2019-08-16] VITALS (73 sets, daily range): BP systolic 45–133; BP diastolic 26–61
[2019-08-16] MEDS ORDERED: GLUCAGON FOR INJ 1 MG VIAL (J1610) SC PRN
[2019-08-16] MEDS ORDERED: GLUCOSE 4 GM CHEW TABLET PO PRN
[2019-08-16] MEDS ORDERED: DEXTROSE 50% 50 ML SYRINGE IV PRN
[2019-08-16 00:40] LABS: BLOOD UREA NITROGEN 49 MG/DL (7-18); CALCIUM LEVEL 9.3 MG/DL (8.8-10.2); CARBON DIOXIDE LEVEL 25 MEQ/L (21-32); CHLORIDE LEVEL 117 MEQ/L (98-107); GLOMERULAR FILTRATION RATE > 60.0 (>42); GLUCOSE, FASTING 231 MG/DL (70-100); MAGNESIUM LEVEL 1.1 MG/DL (1.8-2.4); POTASSIUM SERUM 2.7 MEQ/L (3.5-5.1); SODIUM LEVEL 149 MEQ/L (136-145)
[2019-08-16] MEDS ORDERED: NS 500 ML IV ONE (00:45)
[2019-08-16] MEDS ORDERED: POTASSIUM CHLORIDE 10% LIQ 20 MEQ/15 ML UDC PO ONE ×2 (00:45→01:30)
[2019-08-16] MEDS ORDERED: NS 1,000 ML IV SCH (00:45)
--- NOTE | 2019-08-16 00:52 | REPVR ---
PROCEDURE INFORMATION: Exam: US Duplex Left Lower Extremity Veins, Limited Exam date and time: 08/16/2019 12:28 AM Age: 74 years old Clinical indication: Other: COLD; Additional Info: cool left leg, currently intubated. DVT? TECHNIQUE: Imaging protocol: Real-time Duplex ultrasound of the Left Lower Extremity with 2-D powell scale, color Doppler flow and spectral waveform analysis with image documentation. Limited exam focused on the left lower extremity veins. COMPARISON: US Duplex, Ext LOWER veins, bilat BILATERAL 08/07/2019 2:34 PM FINDINGS: Left deep veins: Unremarkable. The common femoral, femoral, proximal profunda femoral and popliteal veins are patent without thrombus. Normal Doppler waveforms. Normal compressibility and/or augmentation response. Left superficial veins: Unremarkable. Saphenofemoral junction is patent without thrombus. Soft tissues: Unremarkable. IMPRESSION: No acute findings. No evidence of deep vein thrombosis. Electronically signed by: Sudheer Vicente On 08/16/2019 00:52:02 AM
[2019-08-16] MEDS ORDERED: HYDROCORTISONE 100 MG/2 ML VIAL (J1720 PER 1) IV ONE (01:15)
[2019-08-16] MEDS ORDERED: NOREPINEPHRINE 4 MG/4 ML AMP As Ordered ONE ×3 (01:19→01:27)
[2019-08-16] MEDS ORDERED: NOREPINEPHRINE BITARTRATE 16 MG in D5W 484 ML IV SCH (01:30)
[2019-08-16] MEDS: MAG SULF 1GM/100ML (MAG RUN) 1 GM in IV 1 EA IV SCH ×2 (01:42→02:30)
--- NOTE | 2019-08-16 01:45 | REPVR ---
PROCEDURE INFORMATION: Exam: XR Chest, 1 View Exam date and time: 08/16/2019 1:29 AM Age: 74 years old Clinical indication: Other: destat on 100% o2 on vent. pneumonia? TECHNIQUE: Imaging protocol: XR of the chest Views: 1 view. COMPARISON: CR PORTABLE CHEST X-RAY 08/15/2019 7:03 PM FINDINGS: Limitations: Left base is partially cut off the film. Tubes, catheters and devices: There is a PICC line from the right arm with the tip at the SVC in satisfactory position. Endotracheal tube overlies the trachea with the tip 4.0 cm above the alanna in satisfactory position. Nasogastric tube reaches the stomach with the tip not seen. Lungs: Diffuse bilateral infiltrates. Pleural space: Unremarkable. No pleural effusion. No pneumothorax. Heart/Mediastinum: Unremarkable. No cardiomegaly. Vasculature: Moderate atherosclerotic calcification of the aortic arch. Bones/joints: Mild degenerative changes of the left shoulder. IMPRESSION: 1. Diffuse bilateral infiltrates. Increased from prior. 2. Tubes and catheters as described. Electronically signed by: Sudheer Vicente On 08/16/2019 01:45:36 AM
[2019-08-16] MEDS: IPRATROPIUM 0.5MG/ALBUTEROL 2.5MG INH SOL UD 3ML (DUONEB)(J7620) NEB SCH ×2 (01:53→07:12)
[2019-08-16 02:04] LABS: ABG BASE EXCESS -8.4 (-2.0-2.0); ABG HCO3 20.1 MEQ/L (22.0-26.0); ABG PARTIAL PRESSURE CO2 56.9 mmHg (35.0-45.0); ABG PARTIAL PRESSURE O2 131.6 mmHg (75.0-100.0); ABG STANDARD HCO3 17.6 MEQ/L (22.0-26.0); ABG TOTAL CO2 21.8 MEQ/L (23.0-31.0)
[2019-08-16 02:06] LABS: ABG pH (ARTERIAL) 7.166 UNITS (7.350-7.450)
[2019-08-16 02:38] LABS: HEMATOCRIT 31.4 % (42.0-52.0); MEAN CORPUSCULAR HEMOGLOBIN 28.8 pg (27.0-33.0); MEAN CORPUSCULAR HGB CONC 28.7 g/dl (32.0-36.5); MEAN CORPUSCULAR VOLUME 100.3 fl (80.0-96.0); PLATELET COUNT, AUTOMATED 106 10^3/uL (150-450); RED BLOOD COUNT 3.13 10^6/uL (4.30-6.10); WHITE BLOOD COUNT 3.2 10^3/uL (4.0-10.0)
[2019-08-16] MEDS: PIPERACILLIN/TAZOBACTAM SOD 3.375 GM in D5W MINI-BAG PLUS 50 ML IV SCH ×2 (02:43→09:00)
[2019-08-16] MEDS ORDERED: VASOPRESSIN INJ 20 UNITS/ML VIAL As Ordered ONE (02:45)
--- NOTE | 2019-08-16 02:58 | PHACANCOPD ---
PHARMACY VANCOMYCIN DOSING Pt Demographics Demographics Patient Age:74 , Weight:79.000 , Gender: male Adjusted Body Weight Date: 07/05/19, Adjusted Body Weight: [76.8] Kg Events Past 24 Hours Events Past 24 Hours: NO: Dialysis, Diuretic Therapy, Change in CrCl, Fever, Elevation in WBC, Pending Diagnostics, Pending Procedures, Other Vancomycin Vancomycin indication: severe sepsis Vancomycin Target Ranges: 15-20 mcg/ml Vancomycin Load Y/N: Yes Load Dose Date Time Vancomycin Load Dose: 1.5 GM Date: 08-06 Time: 399 Vancomycin Dose Date: 08/01/19. Current Vancomycin Dose: INTERMITTENT Intermittent Dosing?: Yes Labs Labs Item Value Date Time White Blood Count 3.2 10^3/uL L 08/16/19222 Creatinine 1.20 MG/DL 08/16/192019 Blood Urea Nitrogen 49 MG/DL H 08/16/192019 Glomerular Filtration Rate > 60.0 08/16/192019 Vital Signs Label Value Date Time Patient Temperature 97.5 degrees F 08/15/191999 Temperature Source Temporal 08/15/191999 Micro Microbiology 08/16/19 Blood Culture, Received Pending 08/16/19 Blood Culture, Received Pending 08/06/19 Fungal Smear, Received Pending 08/06/19 Fungal Culture, Received Pending Creatinine Clearance Date:08-16-19. Creatinine Clearance: [~50] Pending Labs Trough 08-17 @0300 Assessment and Plan Maintaining Current Dose?: Yes Reason for dose change: No Dose Change Pharmacist Note Pharmacist Note Date: 08-16-19. Pharmacist note: Will monitor and make adjustments as needed [facility] Aug 16, 2019 02:58
[2019-08-16] MEDS ORDERED: VASOPRESSIN INJ 20 UNITS in NS 499 ML IV SCH (03:00)
[2019-08-16] MEDS ORDERED: VANCOMYCIN HCL 1,000 MG, VIAL MATE ADAPTER 1 EACH in D5W 250 ML IV ONE (03:00)
[2019-08-16] MEDS ORDERED: EPINEPHrine INJ 1 MG/ML 1ML VIAL As Ordered ONE (03:01)
[2019-08-16 03:14] LABS: ALBUMIN 1.8 GM/DL (3.2-5.2); CALCIUM LEVEL 9.1 MG/DL (8.8-10.2); CK-MB VALUE MASS 4.7 NG/ML (<3.6); CREATININE FOR GFR 1.34 MG/DL (0.70-1.30); GLOMERULAR FILTRATION RATE 55.6 (>42); MAGNESIUM LEVEL 1.4 MG/DL (1.8-2.4); MB/CK RELATIVE INDEX 17.41 (< OR =4); POTASSIUM SERUM 2.6 MEQ/L (3.5-5.1); TOTAL PROTEIN 4.3 GM/DL (6.4-8.2); TROPONIN I 0.12 NG/ML (< 0.10)
[2019-08-16] MEDS ORDERED: EPINEPHrine HCL INJ 1 MG in D5W 240 ML IV SCH (03:15)
[2019-08-16] MEDS ORDERED: KCL 20MEQ IN 100ML SWI (KRUN) 20 MEQ in IV 1 EA IV SCH ×2 (03:30)
[2019-08-16] MEDS ORDERED: VANCOMYCIN HCL 500 MG in D5W MINI-BAG PLUS 100 ML IV ONE (04:00)
[2019-08-16] MEDS: KCL 20MEQ IN 100ML SWI (KRUN) 20 MEQ in IV 1 EA IV SCH ×6 (04:24→05:26)
[2019-08-16 04:50] LABS: ABG BASE EXCESS -10.7 (-2.0-2.0); ABG HCO3 17.1 MEQ/L (22.0-26.0); ABG O2 SATURATION 97.2 % (95.0-99.0); ABG PARTIAL PRESSURE CO2 45.9 mmHg (35.0-45.0); ABG PARTIAL PRESSURE O2 106.1 mmHg (75.0-100.0); ABG STANDARD HCO3 15.9 MEQ/L (22.0-26.0); ABG TOTAL CO2 18.5 MEQ/L (23.0-31.0); ABG pH (ARTERIAL) 7.188 UNITS (7.350-7.450)
[2019-08-16] MEDS: SUCRALFATE SUSP 1GM/10ML UD PO SCH (05:33)
[2019-08-16] MEDS: HumaLOG INSULIN (NovoLOG) PER UNIT SC SCH (05:34)
[2019-08-16] MEDS: SODIUM CHLORIDE 0.9% INJ 10 ML SYR IV SCH (05:34)
[2019-08-16] MEDS: DIMETHICONE 2% OINTMENT(VANIPLY) 70GM TUBE TOP SCH (05:35)
[2019-08-16 06:53] LABS: ABG BASE EXCESS -8.7 (-2.0-2.0); ABG HCO3 18.3 MEQ/L (22.0-26.0); ABG O2 SATURATION 99.2 % (95.0-99.0); ABG PARTIAL PRESSURE CO2 44.1 mmHg (35.0-45.0); ABG PARTIAL PRESSURE O2 159.3 mmHg (75.0-100.0); ABG STANDARD HCO3 17.4 MEQ/L (22.0-26.0); ABG TOTAL CO2 19.7 MEQ/L (23.0-31.0)
[2019-08-16 06:54] LABS: ABG pH (ARTERIAL) 7.236 UNITS (7.350-7.450)
[2019-08-16 07:47] LABS: HEMATOCRIT 29.4 % (42.0-52.0); HEMOGLOBIN 8.4 g/dl (13.5-17.5); MEAN CORPUSCULAR HEMOGLOBIN 28.9 pg (27.0-33.0); MEAN CORPUSCULAR HGB CONC 28.6 g/dl (32.0-36.5); PLATELET COUNT, AUTOMATED 101 10^3/uL (150-450); RED BLOOD COUNT 2.91 10^6/uL (4.30-6.10)
[2019-08-16] MEDS ORDERED: EPINEPHrine HCL INJ 2 MG in D5W 480 ML IV SCH (08:00)
--- NOTE | 2019-08-16 08:06 | REP ---
Portable chest x-ray: Single view. 06:58 a.m. film. History: Intubation. Comparison study: August 16, 2019 and 01:35 a.m. Findings: Endotracheal tube remains in good position at the level of the transverse aorta. An NG tube enters left upper quadrant of the abdomen. A right-sided PICC line is seen. There is increasing opacity in the left lower lobe behind the heart with air bronchograms. There is blunting of the left lateral pleural angle indicative of some degree of left pleural effusion. There are fairly extensive patchy infiltrates in the right lung. There is some increased consolidation in the the right middle lobe component of the right lung infiltrates which superiorly abuts the minor fissure. Impression: Progressive opacity left lower lobe and right middle lobe. Right upper lobe infiltrate again noted as well. Left pleural effusion. Electronically Signed by Rodolfo Chester MD 08/16/2019 07:58 A
[2019-08-16 08:17] LABS: ALBUMIN 1.5 GM/DL (3.2-5.2); BILIRUBIN,TOTAL 1.2 MG/DL (0.2-1.0); CALCIUM LEVEL 8.1 MG/DL (8.8-10.2); CREATININE FOR GFR 1.45 MG/DL (0.70-1.30); GLOMERULAR FILTRATION RATE 50.8 (>42); MAGNESIUM LEVEL 1.4 MG/DL (1.8-2.4); PHOSPHORUS LEVEL 2.5 MG/DL (2.5-4.9); POTASSIUM SERUM 3.3 MEQ/L (3.5-5.1); TOTAL PROTEIN 3.8 GM/DL (6.4-8.2)
[2019-08-16] MEDS: SENNA 8.6 MG TAB (SENOKOT) PO SCH (09:00)
[2019-08-16] MEDS: DOCUSATE SOD LIQ 100MG/10ML UDC PO SCH (09:00)
[2019-08-16] MEDS: HYDROCORTISONE 100 MG/2 ML VIAL (J1720 PER 1) IV SCH (09:00)
[2019-08-16] MEDS: VANICREAM MOISTURIZING SKIN CREAM 113GM TUBE TOP SCH (09:00)
[2019-08-16] MEDS: TRIAMCINOLONE ACET 0.1% OINTMENT 15 GM TOP SCH (09:00)
[2019-08-16] MEDS: CHLORHEXIDINE GLUCONATE 0.12 % 15ML UDC (PERIDEX ORAL RINSE) MT SCH (09:00)
[2019-08-16] MEDS: PANTOPRAZOLE 40MG INJ (PROTONIX) (C9113) IV SCH (09:00)
[2019-08-16] MEDS: atenoloL 25 MG TAB PO SCH (09:00)
[2019-08-16] MEDS: amLODIPine 10 MG TAB PO SCH (09:00)
[2019-08-16] MEDS: propylthiouraciL 50 MG TAB PO SCH (09:00)
[2019-08-16] MEDS ORDERED: MORPHINE 2 MG/ML 1ML VIAL (J2270) IV PRN (09:45)
[2019-08-16] MEDS ORDERED: MORPHINE 2 MG/ML 1ML VIAL (J2270) IV ONE (10:00)
--- NOTE | 2019-08-16 12:09 | CCN ---
DATE: 08/16/2019 I was called urgently to the bedside by Dr. Garcia. When I left, Mr. Higgins had good pressure an oxygenation on FiO2 of 2.6. His peak pressure on assist control modality was around 27. He had an arterial blood gas done which had shown both acidemia with a pO2 to 2.76 with both respiratory and metabolic components. Apparently, he began decompensating perhaps an hour before I was contacted with worsening hypoxemia requiring increasing FiO2 and worsening blood pressure. When I was contacted in regards to his respiratory status, his peak pressure had increased slightly to 33 but his plateau was unchanged around 13. He was receiving a liter of fluid and Levophed was being hung. When I arrived, because of his increased resistance component as well as markedly diminished breath sounds (although not significantly changed from what it was earlier in the evening), he was given a bronchodilator. He had been placed on Levophed and quickly maxed out at 30 mics. However, at that point we had obtained reasonable and acceptable MAP. His CVP prior to that was 8 had gone up to 10 with IV fluids. His oxygenation improved with perfusion. He changed his modality to PRVC and now his plateau pressure was around 21-22. His oxygen, which he gone up to a high at 1.02 was able to be weaned to 85%. When he was first arrived to the intensive care unit (ICU), he was transiently hypotensive and responded to a fluid bolus and the thought was that he may have been hypovolemic in part because he was transitioning from total parenteral nutrition (TPN) to oral feeds. He had responded to a fluid bolus. However, now he was requiring pressors. The differential included sepsis, though a lactate level was normal 1.2. /the suctioning returned findings consistent with aspirated a pureed of foods. The timing was appropriate and for an aspiration pneumonitis. It was felt that his hypotension may been secondary to systemic inflammatory response syndrome (SIRS). A chest x-ray was taken which showed increased interstitial infiltrates. Cardiac etiology was also considered and a troponin was sent. He received broad-spectrum antibiotics for possible aspiration pneumonia. His vasopressors where transiently interrupted and his pressure again fell. At this point, restarting his Levophed at maximal doses did not result in return of pressure. He was given a fluid bolus as well as initially vasopressin was added to his regimen. He still remained hypotensive and epinephrine was added which appeared to markedly improve his blood pressure. His oxygen saturations dropped in accordance when his blood pressure dropped and he returned to reasonable oxygenation with mandaen of perfusion. His lungs did not change only compliant. An arterial blood gas at this time showed worsening acidemia with a pH now at 7.66 making his pCO2 as 56.9 and his bicarbonate continued to decrease. His base excess was now -8.4. Changes were made to the ventilator to try to help improve his ventilation and his next blood gas did show some improvement with a pCO2 now of 45.9 and a pH of 7.19, though his base excess continue to worsen. His blood pressure maintained with epinephrine, in fact, it was weaned from 2 mics to 1 kristopher. His vasopressin was able to be stopped and his Levophed was decreased at 28 mics. He did reason well on significant support with MAPS around naps around 65. Later in the morning, Dr. Chaudhry was able to reach his healthcare proxy who made him a DO NOT RESUSCITATE (DNR) with a trial of intubation. This morning when his healthcare proxy, arrived, she decided to make him comfort care which seemed reasonable and support was withdrawn. Additional critical care time 2 hours, not including procedure time.
--- NOTE | 2019-08-16 12:56 | DS.PDOC ---
Discharge Summary General Date of Admission Jul 04, 2019 at 13:28 Date of Discharge 08/16/19 Attending Physician: SHARLA LUI MD Discharge Summary PROCEDURES PERFORMED DURING STAY: Temperature dialysis catheter, central line placement, endotracheal intubation, CRRT. ADMITTING DIAGNOSES: 1. Septic shock, cellulitis, acute respiratory failure, aspiration pneumonia, GI bleed, bowel perforation, dysphasia, severe malnutrition, physical deconditioning. DISCHARGE DIAGNOSES: 1. Septic shock, cellulitis, acute respiratory failure, aspiration pneumonia, GI bleed, bowel perforation, dysphasia, severe malnutrition, physical deconditioning. COMPLICATIONS/CHIEF COMPLAINT: Acute Renal Failure,Cellulitis,Copd. HISTORY OF PRESENT ILLNESS: [74-year-old male with past medical history of COPD, hypertension, diabetes mellitus, chronic kidney disease and coronary artery disease, was admitted for septic shock secondary to cellulitis. He was initially admitted to the ICU, intubated and required CRRT and multiple vasopressors. He progressively improved, was extubated and renal function improved where he no longer required dialysis. He was admitted to the floor where he stayed for a few weeks due to dysphasia, severe malnutrition and physical deconditioning. He returned to the ICU due to aspiration pneumonia, he was reintubated, CRRT was restarted and he required multiple vasopressors again to maintain adequate blood pressure. During this ICU stay he was also found to have GI bleed and microperforation of the bowel secondary to an ileus. He was given a total of 5 units of packed red Blood cells, ileus improved and he did not require any surgical intervention for the microperforation. He once again improved, was extubated and CRRT was stopped after a few days. He was once again downgraded to the floor where he stayed due to persistent dysphasia malnutrition and physical deconditioning. He was on TPN, diet was slowly being advanced as recommended by speech therapy. Patient became unresponsive yesterday, possibly due to aspiration, had cardiopulmonary arrest, required CPR with epinephrine and defibrillation. He was once again reintubated and transferred to the ICU, started on 3 vasopressors overnight. After discussing his current condition and future outlook with the healthcare proxy she decided to make him comfort measures only, as she no longer wants him to suffer. Patient was made comfort measures only, vasopressors were stopped and patient was terminally extubated. Patient within 15 minutes at 9:49 AM, I was present at the bedside. HOSPITAL COURSE: As above. TIME SPENT ON DISCHARGE: Greater than 35 minutes. Vital Signs/I&Os Vital Signs Date Time Temp Pulse Resp B/P (MAP) Pulse Ox O2 Delivery O2 Flow Rate FiO2 08/16/19 09:15 97 91/49 (63) 92 Ventilator 75 08/16/19 08:07 98.2 24 08/14/19 12:28 2.0 I&O- Last 24 Hours up to 6 AM 08/16/19 06:00 Intake Total 3508 ml Output Total 260 ml Balance 3248 ml Laboratory Data Labs 24H Laboratory Tests 2 08/15/19 15:49: Anion Gap 10, Glomerular Filtration Rate 57.1, Calcium Level 9.5, Phosphorus Level 2.4L, Albumin 2.1L 08/15/19 23:10: Blood Gas Bicarbonate Standard 21.3L, Arterial Blood pH 7.259L, Arterial Blood Partial Pressure CO2 53.5H, Arterial Blood Partial Pressure O2 93.3, Arterial Blood Total CO2 25.1, Arterial Blood HCO3 23.4, Arterial Blood Base Excess - 3.8L, Arterial Blood Oxygen Saturation 96.2 08/15/19 23:43: Bedside Glucose (Misc Panel) 58L 08/16/19 00:01: Anion Gap 7L, Glomerular Filtration Rate > 60.0, Calcium Level 9.3, Magnesium Level 1.1L 08/16/19 00:14: Bedside Glucose (Misc Panel) 126H 08/16/19 01:54: Blood Gas Bicarbonate Standard 17.6L, Arterial Blood pH 7.166*L, Arterial Blood Partial Pressure CO2 56.9H, Arterial Blood Partial Pressure O2 131.6H, Arterial Blood Total CO2 21.8L, Arterial Blood HCO3 20.1L, Arterial Blood Base Excess - 8.4L, Arterial Blood Oxygen Saturation 98.0 08/16/19 02:23: Nucleated Red Blood Cells % (auto) 3.8H, Anion Gap 8, Glomerular Filtration Rate 55.6, Calcium Level 9.1, Magnesium Level 1.4L, Total Bilirubin 1.0, Aspartate Amino Transf (AST/SGOT) 18, Alanine Aminotransferase (ALT/SGPT) 13, Alkaline Phosphatase 114, Total Creatine Kinase 27L, Creatine Kinase MB 4.7H, Creatine Kinase MB Relative Index 17.41H, Troponin I 0.12H, Total Protein 4.3#L, Albumin 1.8L, Albumin/Globulin Ratio 0.72L 08/16/19 02:47: Lactic Acid Level 1.9 08/16/19 04:44: Blood Gas Bicarbonate Standard 15.9L, Arterial Blood pH 7.188*L, Arterial Blood Partial Pressure CO2 45.9H, Arterial Blood Partial Pressure O2 106.1H, Arterial Blood Total CO2 18.5L, Arterial Blood HCO3 17.1L, Arterial Blood Base Excess - 10.7L, Arterial Blood Oxygen Saturation 97.2 08/16/19 05:31: Bedside Glucose (Misc Panel) 139H 08/16/19 06:27: Blood Gas Bicarbonate Standard 17.4L, Arterial Blood pH 7.236*L, Arterial Blood Partial Pressure CO2 44.1, Arterial Blood Partial Pressure O2 159.3H, Arterial Blood Total CO2 19.7L, Arterial Blood HCO3 18.3L, Arterial Blood Base Excess - 8.7L, Arterial Blood Oxygen Saturation 99.2H 08/16/19 07:30: Nucleated Red Blood Cells % (auto) 2.8H, Anion Gap 10, Glomerular Filtration Rate 50.8, Calcium Level 8.1L, Phosphorus Level 2.5, Magnesium Level 1.4L, Total Bilirubin 1.2H, Aspartate Amino Transf (AST/SGOT) 14, Alanine Aminotransferase (ALT/SGPT) 12, Alkaline Phosphatase 98, Total Protein 3.8L, Albumin 1.5L, Albumin/Globulin Ratio 0.65L CBC/BMP Laboratory Tests 08/15/19 15:49 08/16/19 00:01 08/16/19 02:23 08/16/19 07:30 FSBS Laboratory Tests Test 08/15/19 23:43 08/16/19 00:14 08/16/19 05:31 Range/Units Bedside Glucose (Misc Panel) 58 126 139 83-110 MG/DL Microbiology Microbiology 08/16/19 Blood Culture, Received Pending 08/16/19 Blood Culture, Received Pending 08/06/19 Fungal Smear, Received Pending 08/06/19 Fungal Culture, Received Pending Discharge Medications Scheduled Allopurinol (Zyloprim) 300 Mg Tablet, 300 MG PO DAILY, (Reported) Amitriptyline HCl (Amitriptyline HCl) 25 Mg Tab, 25 MG PO QHS, (Reported) Amlodipine Besylate (Amlodipine Besylate) 5 Mg Tab, 5 MG PO DAILY, (Reported) Ascorbic Acid (Vitamin C) 500 Mg Tab, 500 MG PO TID, (Reported) Aspirin (Ecotrin) 81 Mg Tab, 81 MG PO DAILY, (Reported) Atenolol (Atenolol) 50 Mg Tablet, 75 MG PO DAILY, (Reported) Buspirone HCl (Buspirone HCl) 15 Mg Tab, 15 MG PO BID, (Reported) Cholecalciferol (Vitamin D3) (Vitamin D3) 5,000 Unit Cap, 5,000 UNIT PO DAILY, (Reported) Citalopram Hydrobromide (Citalopram HBr) 20 Mg Tab, 20 MG PO DAILY, (Reported) Cyanocobalamin (Vitamin B-12) (Vitamin B-12) 1,000 Mcg Tablet, 1,000 MCG PO TID, (Reported) Ferrous Sulfate (Ferrous Sulfate) 325 Mg Tablet.dr, 325 MG PO BID, (Reported) Fluticasone Propion/Salmeterol (Advair Hfa 115-21 Mcg Inhaler) 1 Aer Aer, 2 PUFF INH BID, (Reported) Folic Acid (Folic Acid) 1 Mg Tab, 1 MG PO DAILY, (Reported) Furosemide (Furosemide) 40 Mg Tablet, 40 MG PO DAILY, (Reported) Gabapentin (Gabapentin) 300 Mg Capsule, 300 MG PO QHS, (Reported) Lisinopril (Lisinopril) 10 Mg Tab, 10 MG PO DAILY, (Reported) Magnesium Oxide (Magnesium Oxide) 400 Mg Tablet, 800 MG PO BID, (Reported) Metformin HCl (Metformin HCl) 500 Mg Tablet, 500 MG PO BID, (Reported) Omeprazole (Omeprazole) 40 Mg Cap, 40 MG PO DAILY, (Reported) Prednisone (Prednisone) 5 Mg Tablet, 5 MG PO DAILY, (Reported) Propylthiouracil (Propylthiouracil) 50 Mg Tab, 50 MG PO QAM, (Reported) Propylthiouracil (Propylthiouracil) 50 Mg Tab, 25 MG PO QHS, (Reported) Ramelteon (Rozerem) 8 Mg Tablet, 8 MG PO QHS, (Reported) Ropinirole HCl (Ropinirole HCl) 4 Mg Tablet, 4 MG PO QHS, (Reported) Simvastatin (Simvastatin) 20 Mg Tab, 20 MG PO QHS, (Reported) Scheduled PRN Acetaminophen (Acetaminophen) 325 Mg Tablet, 650 MG PO Q6H PRN for PAIN, (Reported) Albuterol Sulf (Albuterol Sulfate) 2.5 Mg/3 Ml Nebu, 2.5 MG INH PRN PRN for WHEEZING, (Reported) Ipratropium/Albuterol Sulfate (Combivent Respimat 20-100 Mcg) 1 Aer Aer, 1 PUFF INH QID PRN for SHORTNESS OF BREATH, (Reported) Sennosides/Docusate Sodium (Senna Plus Tablet) 1 Each Tablet, 1 TAB PO BID PRN for CONSTIPATION, (Reported) Allergies Coded Allergies: Quinolones (Verified Allergy, Intermediate, hives, 05/09/19) azithromycin (Verified Allergy, Intermediate, hives, 05/09/19) levofloxacin (Verified Allergy, Intermediate, hives, 05/09/19) tobramycin (Verified Allergy, Unknown, unsure, 05/03/19) ibuprofen (Verified Adverse Reaction, Mild, upset stomach, 05/09/19) zolpidem (Verified Adverse Reaction, Mild, hallucination, 05/09/19) SHARLA LUI MD Aug 16, 2019 12:56
[2019-08-16] MEDS ORDERED: VANCOMYCIN HCL 1,000 MG, VIAL MATE ADAPTER 1 EACH in D5W 250 ML IV SCH (16:00)
== END 2019-08-16 12:05 | disposition expired | DRG 870 ==
LOC: EDBD 08:52 → M ED 08:52 → M ED INP 13:28 → M ICU 17:08 → M PCU 07-14 14:51 → M MS5PR 07-20 22:19 → M PCU 07-31 20:00 → M ICU 08-01 04:28 → M PCU 08-12 11:25 → M ICU 08-15 18:45
PROVIDERS: ADMIT Internal Medicine; ATTEND Internal Medicine
PROC: 02HV33Z Insertion of Infusion Device into Superior Vena Cava, Percutaneous Approach (ICD-10-PCS; 2019-07-05)
PROC: 04HK33Z Insertion of Infusion Device into Right Femoral Artery, Percutaneous Approach (ICD-10-PCS; 2019-07-05)
PROC: 30233N1 Transfusion of Nonautologous Red Blood Cells into Peripheral Vein, Percutaneous Approach (ICD-10-PCS; 2019-07-08)
PROC: 5A1955Z Respiratory Ventilation, Greater than 96 Consecutive Hours (ICD-10-PCS; principal; 2019-08-15)
DX: A41.9 Sepsis, unspecified organism (principal); J18.9 Pneumonia, unspecified organism; R65.21 Severe sepsis with septic shock; J96.01 Acute respiratory failure with hypoxia; A48.1 Legionnaires' disease; J69.0 Pneumonitis due to inhalation of food and vomit; K26.5 Chronic or unspecified duodenal ulcer with perforation; E43 Unspecified severe protein-calorie malnutrition; G93.41 Metabolic encephalopathy; K85.90 Acute pancreatitis without necrosis or infection, unspecified; J44.1 Chronic obstructive pulmonary disease with (acute) exacerbation; L03.90 Cellulitis, unspecified; N17.9 Acute kidney failure, unspecified; K56.7 Ileus, unspecified; K92.2 Gastrointestinal hemorrhage, unspecified; E87.2 Acidosis; E87.0 Hyperosmolality and hypernatremia; I50.30 Unspecified diastolic (congestive) heart failure; I13.0 Hypertensive heart and chronic kidney disease with heart failure and stage 1 through stage 4 chronic kidney disease, or unspecified chronic kidney disease; R13.10 Dysphagia, unspecified; E11.65 Type 2 diabetes mellitus with hyperglycemia; I25.10 Atherosclerotic heart disease of native coronary artery without angina pectoris; N18.3 Chronic kidney disease, stage 3 (moderate); Z51.5 Encounter for palliative care; Z79.899 Other long term (current) drug therapy; Z79.82 Long term (current) use of aspirin; Z88.8 Allergy status to other drugs, medicaments and biological substances; E05.90 Thyrotoxicosis, unspecified without thyrotoxic crisis or storm; Z93.3 Colostomy status; Z87.891 Personal history of nicotine dependence; Z79.52 Long term (current) use of systemic steroids; Z79.01 Long term (current) use of anticoagulants; E87.5 Hyperkalemia; M10.9 Gout, unspecified; D64.9 Anemia, unspecified; E87.6 Hypokalemia; E83.51 Hypocalcemia; G25.81 Restless legs syndrome; E78.5 Hyperlipidemia, unspecified; K21.9 Gastro-esophageal reflux disease without esophagitis; E11.40 Type 2 diabetes mellitus with diabetic neuropathy, unspecified; E83.42 Hypomagnesemia; I48.0 Paroxysmal atrial fibrillation; D69.6 Thrombocytopenia, unspecified; E83.39 Other disorders of phosphorus metabolism; Z66 Do not resuscitate

== ENCOUNTER → 2019-07-31 | Outpatient (REF) | payer MEDICARE, OTHER ==
[~2019-07-31] MED LIST changes: +CEPH500T PO; +DOXY100T PO
--- NOTE | 2019-08-01 08:37 | RO ---
DATE OF PROCEDURE: 08/01/2019 PROCEDURE: Left internal jugular (IJ). INDICATION: Hypotension. POSTPROCEDURE DIAGNOSIS: Hypotension. SURGEON: Dr. Guzman CONSENT: Deemed emergent due to hypotension. Patient unable to give consent due to encephalopathy. DESCRIPTION OF PROCEDURE: Left IJ was prepped in a sterile manner with chlorhexidine and full barrier precautions. Time-out was performed with two patient identifiers identifying correct site, correct procedure. Under ultrasound guidance Jessi syringe was introduced in the IJ on the first pass with return of venous blood flow. Wire was fed through the needle and the triple-lumen catheter was placed via modified Seldinger technique. The wire was removed. All three ports returned venous blood flow and flushed easily. The catheter was sutured in at 15 cm. Sterile impregnated dressing was placed over the site. Postprocedure chest x-ray shows adequate placement with the tip of the catheter in the superior vena cava (SVC) and no evidence of pneumothorax. No observed complications.
--- NOTE | 2019-08-01 14:11 | IPN ---
DATE: 08/01/2019 Events of the night have been noted and the patient unfortunately has a sepsis of undetermined etiology. When I review his imaging of his MRI he definitely has some inflammation around his pancreas, but not as severe as I would typically anticipate with someone who would have an acute pancreatitis issue ongoing. His amylase, lipase are still normal suggesting that this is much more likely that this is residual inflammatory process from when he originally had his sepsis issue hypotensive episode. Unfortunately his white count has been elevated, suggesting he has some unknown source of his sepsis. It would be very unusual for someone to have an ongoing portion of bowel which was compromised and leading to an elevated white count for so many days without having symptoms of gastrointestinal (GI) distress or abdominal pain and thus I feel that it is more likely that his sepsis issue has caused some ileus, ileus has caused some abdominal distension, and indeed the patient has significant gastric distension and I feel that he would have marked improvement of his overall discomfort if the patient would allow an nasogastric (NG) tube to be placed. However, he refuses, is very argumentative about this and the nursing has had significant difficulty with convincing him for any type of care. In any case the patient refuses NG tube insertion this morning again, hopefully if he becomes less combative over the day he will agree to an NG tube and I feel that that will make him much more comfortable from a GI standpoint. In any case yesterday when I saw him early on his ostomy was functioning nicely, he had air in the bag, he had stool in the bag and his parastomal area was not tender. And unfortunately now the patient is distended throughout. And given his distension I anticipate this is why he is more symptomatic around the parastomal hernia as well. Otherwise he has some rhonchi on his exam his heart is regular, tachycardiac. Abdomen is distended, tympanitic with some tenderness throughout. IMPRESSION AND PLAN: Unfortunately at this time my impression is that he has an ileus and that is contributing to some of his distension which has caused his hernia to be more symptomatic. I feel NG tube insertion is his major treatment for his ileus/partial obstruction obviously treatment of his primary source for his sepsis is also necessary, I am not sure what that is at this time. And agree with continued aggressive treatment for him. If he becomes intubated, then an OG tube may be significantly beneficial for him. I can add some simethicone to help with some minimal gastric distension that we can see from air within the stomach I could appreciate on his x-ray, however, that will only be minimally beneficial and will not significantly impact his overall outcome. In addition, I am not seeing any significant amount of peripancreatic inflammation that is abutting the small bowel and causing a localized ileus, I am not seeing any air within the peripancreatic fluid suggesting a infected pancreatic necrosis thus it seems less likely that it is the primary etiology for his current issue. Otherwise I will continue to follow the patient with you, Dr. Enciso is available for the rest of the day should there be any questions or concerns.
== END ==
LOC: M LAB REF 16:07
PROVIDERS: ATTEND Dermatology
DX: L30.9 Dermatitis, unspecified (principal)

== ENCOUNTER → 2019-08-07 | Outpatient (REF) | payer MEDICARE, OTHER | LOC: M LAB REF 18:35 | PROVIDERS: ATTEND Dermatology | DX: L53.9 Erythematous condition, unspecified (principal) ==